=== PATIENT | male | born 1955 | race African-American/Black ===

== ENCOUNTER → 2016-08-12 | Outpatient (CLI) | payer MEDICARE, OTHER ==
[2016-08-12 13:26] VITALS: BP 121/76; PULSE 69; RESP 16; TEMP 97.9
--- NOTE | 2016-08-12 13:48 | P.PN ---
Progress Note - Text Patient returns for followup for chronic back pain with radiation to bilateral hips. Patient underwent bilateral lumbar RFA in 2016 with excellent relief and returns requesting repeat RFAs. Patient continues on Percocet and Soma medications for pain with good relief. Patient denies adverse drug effects from medications. Today, pt denies new-onset weakness, bowel/bladder incontinence, or any other signs or symptoms of cauda equina syndrome. There are no signs of acute intoxication, and no indications of medication diversion or overuse. In addition to above, 13-point review of systems is also negative for chest pain , shortness of breath, changes in vision, changes in hearing, new onset weakness , abdominal pain, diarrhea, extreme fatigue, malaise, fever, skin changes, homicidal or suicidal ideation, or bowel or bladder incontinence. Vital Signs: Reviewed in EMR Gen: WDWN, AAOx3, NAD HEENT: NCAT, EOMI, hearing grossly normal Pulm: resp unlabored Abd: soft, NT, ND, obese Neck: supple, trachea midline ROM in flexion lumbar spine: reduced ROM in extension lumbar spine: reduced Lumbar paravertebral tenderness: + Facet loading: + bilateral Neuro: CN II-XII grossly intact, decreased strength bilateral LEs 4/5 Imaging: Reviewed in EMR Assessment: 1. lumbar spondylosis without myelopathy 2. chronic pain syndrome Plan: 1. Explanation: Opioid and psychological risk scores were reviewed. Diagnoses , prognoses, and multiple treatment options including but not limited to physical therapy, interventional therapies, adjuvant medical therapies, narcotic medication therapies, and surgery were discussed with the patient and all questions were answered to the patient's satisfaction. 2. Opioid agreement: no opioids prescribed today 3. Counseling: The patient was counseled extensively on BODY MASS INDEX, EXERCISE. Specifically, the patient was instructed regarding the importance of smoking cessation, obesity, and exercise in the context of both chronic pain and overall health. 4. Procedures: left lumbar RFA 5. Consultations: None 6. Investigations: None 7. Medications: none prescribed 8. Disposition: f/u for procedure as scheduled PQRS measures: 1-Patient's medications are documented in the chart. 2-Tobacco use is negative 3-Patient has not had a pneumococcal vaccine. 4-Advanced care planning discussed, patient unable to give. 5-Opioid contract NOT signed with the patient. 6-Pain positive, follow-up visit or procedure scheduled 7-Patient's blood pressure measured and documented, and WNL. 8-Patient's weight was measured, and body mass index ABOVE the normal limits, and counseling was done. Patient instructed to follow up with PCP. 9-Patient WAS NOT identified as an unhealthy alcohol user.
== END | disposition home or self-care (01) ==
LOC: PNWHC3 13:13
PROVIDERS: ATTEND Anesthesiology
DX: M47.816 Spondylosis without myelopathy or radiculopathy, lumbar region (principal); G89.4 Chronic pain syndrome
CPT/HCPCS: 99211

== ENCOUNTER 2016-09-03 09:05 | Day surgery (SDC) | payer MEDICARE, OTHER ==
[2016-09-02 11:44] VITALS: BMI 32.8
[2016-09-03 09:46] VITALS: RESP 16; TEMP 97.8
[2016-09-03] MEDS ORDERED: LACTATED RINGERS 1,000 ML IV ONE (09:52)
--- NOTE | 2016-09-03 10:53 | P.PCN ---
Date of Procedure: 09/03/16 Preoperative Diagnosis: Postoperative Diagnosis: Procedure(s) Performed: Implants: Surgeon: Ge Vaughn Pathology: none sent Condition: stable Disposition: PACU Indications for Procedure: Operative Findings: Description of Procedure: PREOPERATIVE DIAGNOSIS: Lumbar spondylosis without myelopathy and facet arthropathy POSTOPERATIVE DIAGNOSIS: Lumbar spondylosis without myelopathy and facet arthropathy PROCEDURES: Left Radiofrequency thermocoagulation, L3-L4, L4-L5, and L5-S1 medial branch, with fluoroscopic guidance. ANESTHESIA: 1% lidocaine plain; Conscious sedation with versed/fentanyl EBL: Minimal PROCEDURE INDICATION: The patient with low back pain secondary to lumbar arthropathy who had more than 50% relief of pain with previous diagnostic lumbar medial branch block with bupivacaine. Patient presents for left lumbar RFA today after multiple successful RFAs in the past; no use of blood thinners. PROCEDURE DESCRIPTION / TECHNIQUE: The patient was seen and identified in the preoperative area. Risks, benefits, complications, and alternatives were discussed with the patient (including but not limited to incomplete pain relief , bleeding, infection, nerve damage, and allergies to medications), the patient agreed to proceed with the procedure and signed the consent after all questions were answered. Patient was taken to the OR and time out was completed to verify proper patient , position, laterality of pain, and allergies. Pt was placed in the prone position. IV was started. Vital signs remained stable throughout the procedure. A pillow was placed under the patients chest to decrease lordosis. The lumbosacral area was prepped and draped in the usual sterile fashion. Vital signs were closely monitored during the procedure. Conscious sedation was used during the procedure to decrease patients anxiety. Using AP and then oblique fluoroscopy, the eye of the Trevor dog corresponding to the connection between the superior and transverse articular processes of left L4, L5 and top of the sacrum were identified, marked, and localized with 1% lidocaine. Subsequently, a 18 gauge, 100-mm VENOM radiofrequency cannula with a 10-mm active tip was advanced guided by fluoroscopy to each of the eyes of the Trevor dog at left L3, L4, and L5 medial branches. Each site then underwent sensory testing at 50 Hz and 0 to 1 volt and motor testing at 2 Hz and 0 to 3 volt with local stimulation, but no radicular symptoms down the legs. Thereafter the left L3, L4, and L5 medial branch sites underwent radiofrequency thermocoagulation at 80 degrees Celsius for 90 seconds after injecting 0.5 ml of PF lidocaine 1%. After thermocoagulation, 1 ml of the block solution containing Kenalog 40 mg and 2 mL of preservative-free normal saline was injected at the left L3, L4, and L5 medial branch levels after negative aspiration of CSF and blood and with no paresthesias. Cannulas were retracted while injecting lidocaine 1% until the needles were removed. At the end of the procedure, the skin was cleansed and bandages were applied. COMPLICATIONS: No acute complications. DISPOSITION / PLANS: The patient was placed in a supine position and transferred to the recovery area in a stable condition for observation and was discharged from the recovery room after meeting discharge criteria. Home discharge instructions given to the patient by the staff. The patient was reexamined prior to discharge. The patient will schedule a right lumbar RFA next ; VENOM technology used for this procedure.
[2016-09-03] MEDS ORDERED: IV FLUID CONTINUATION 550 ML IV ONE (11:01)
--- NOTE | 2016-09-03 11:09 | FL ---
EXAMINATION TYPE: FL guided pain mgmt statistic DATE OF EXAM: 09/03/2016 HISTORY: Pain LEFT LUMBAR RF, 8 SEC FL, 3 IMAGES SCANNED, .
[2016-09-03 11:21] VITALS: BP 132/83; PULSE 69
[2016-09-03] MEDS ORDERED: LACTATED RINGERS 1,000 ML IV SCH (11:30)
== END 2016-09-03 11:40 | disposition home or self-care (01) ==
LOC: ORPAIN 09:05
PROVIDERS: ATTEND Anesthesiology
DX: G89.4 Chronic pain syndrome (principal); M47.816 Spondylosis without myelopathy or radiculopathy, lumbar region; M46.96 Unspecified inflammatory spondylopathy, lumbar region; Z79.891 Long term (current) use of opiate analgesic; Z79.899 Other long term (current) drug therapy
CPT/HCPCS: 64635; 64636; 99152; J2250; J3301; J3010

== ENCOUNTER 2016-10-02 10:58 | Day surgery (SDC) | payer MEDICARE, OTHER ==
[2016-10-01 11:45] VITALS: BMI 33.5
[~2016-10-02 10:58] MED LIST: LACTATED RINGERS 1,000 ML IV SCH; LIDOCAINE 1% 20 ML VIAL (10MG/ML) FOR IV START INTRADERMA PRN
[2016-10-02 11:21] VITALS: TEMP 97.9
[2016-10-02] MEDS ORDERED: PROPOFOL 10 MG/ML 20 ML VIAL IV ONE (11:37)
[2016-10-02] MEDS ORDERED: LIDOCAINE 1% INJ 10MG/ML (20 ML MDV) ONE (11:37)
--- NOTE | 2016-10-02 11:39 | P.GSHP ---
History of Present Illness H&P Date: 10/02/16 Chief Complaint: Screening, history of polyps Patient here today for colonoscopy. Last colonoscopy was 5 years ago. He had colon polyps at that time. Family history of colon cancer and uncle. No bowel related complaints. Past Medical History Past Medical History: Hearing Disorder / Deafness, Musculoskeletal Disorder, Osteoarthritis (OA), Prostate Disorder Additional Past Medical History / Comment(s): DDD. hx SHINGLES ONE TIME.Deaf Rt ear History of Any Multi-Drug Resistant Organisms: MRSA Date of last positivie culture/infection: 2014 MDRO Source:: nose Past Surgical History: Joint Replacement, Orthopedic Surgery Additional Past Surgical History / Comment(s): RT KNEE AND HIP replaced. PAIN PROC, COLLARBONE REPAIRED. Left hip replacement x2 Past Anesthesia/Blood Transfusion Reactions: No Reported Reaction Additional Past Anesthesia/Blood Transfusion Reaction / Comment(s): no hx blood transfusion Smoking Status: Never smoker - Past Family History Father Family Medical History: Congestive Heart Failure (CHF) Brother(s) Family Medical History: Deep Vein Thrombosis (DVT) Medications and Allergies Home Medications Medication Instructions Recorded Confirmed Type Zolpidem Tartrate [Ambien] 10 mg PO HS PRN 02/17/14 10/02/16 History oxyCODONE-APAP 10-325MG [Percocet 1 each PO Q6HR PRN 05/31/14 10/02/16 History 10-325] Cyanocobalamin (Vitamin B-12) 1,000 mcg PO DAILY 06/02/15 10/02/16 History [Vitamin B12] Ferrous Sulfate [Iron (65 MG 325 mg PO DAILY 06/02/15 10/02/16 History Elemental)] Ibuprofen [Motrin] 800 mg PO DAILY PRN 06/02/15 10/02/16 History Multivitamins, Thera [Multivitamin] 1 tab PO DAILY 06/02/15 10/02/16 History Tamsulosin HCl [Flomax] 0.4 mg PO QAM 06/02/15 10/02/16 History Carisoprodol [Soma] 350 mg PO TID PRN 07/04/16 10/02/16 History Allergies Allergy/AdvReac Type Severity Reaction Status Date / Time No Known Allergies Allergy Verified 10/01/16 15:34 Surgical - Exam Vital Signs Temp Pulse Resp BP Pulse Ox 97.9 F 68 18 132/89 98 10/02/16 11:18 10/02/16 11:18 10/02/16 11:18 10/02/16 11:18 10/02/16 11:18 Physical exam: General: Well-developed, well-nourished HEENT: Normocephalic, sclerae nonicteric Abdomen: Nontender, nondistended Extremities: No edema Neuro: Alert and oriented Assessment and Plan (1) Colon cancer screening Narrative/Plan: Will proceed with colonoscopy. Status: Acute
--- NOTE | 2016-10-02 11:54 | P.PCN ---
Date of Procedure: 10/02/16 Preoperative Diagnosis: Postoperative Diagnosis: Procedure(s) Performed: PREOPERATIVE DIAGNOSIS: Colon cancer screening, history of polyps POSTOPERATIVE DIAGNOSIS: Normal exam PROCEDURE: Colonoscopy ANESTHESIA: MAC SURGEON: Binu De La Paz M.D. SPECIMENS: None ENDOSCOPIC PROCEDURE: The patient was placed on the endoscopy table in the left decubitus position. The Olympus colonoscope was inserted into the anus and passed under direct visualization to the base of the cecum. The appendiceal orifice was visualized. From that point the scope was slowly withdrawn inspecting all surfaces carefully. There were no neoplastic inflammatory or polypoid lesions throughout the cecum, ascending, transverse, descending, sigmoid and rectum. There was no diverticulosis noted. Digital rectal examination was normal. The patient was taken to the recovery room in stable condition per anesthesia guidelines. RECOMMENDATIONS: Follow-up colonoscopy 5 years. Implants: Indications for Procedure: Operative Findings: Description of Procedure:
[2016-10-02 12:07] VITALS: RESP 16
[2016-10-02 12:19] VITALS: PULSE 56
[2016-10-02 12:38] VITALS: BP 129/75
== END 2016-10-02 12:42 | disposition home or self-care (01) ==
LOC: ORWHC2ENDO 10:58
PROVIDERS: ATTEND Surgery
DX: Z12.11 Encounter for screening for malignant neoplasm of colon (principal); Z86.010 Personal history of colon polyps; Z80.0 Family history of malignant neoplasm of digestive organs; N40.0 Benign prostatic hyperplasia without lower urinary tract symptoms; M19.90 Unspecified osteoarthritis, unspecified site; Z79.899 Other long term (current) drug therapy; Z79.891 Long term (current) use of opiate analgesic
CPT/HCPCS: J2001; J2704; G0105

== ENCOUNTER 2016-10-08 09:17 | Day surgery (SDC) | payer MEDICARE, OTHER ==
[2016-10-01 15:44] VITALS: BMI 33.5
[~2016-10-08 09:17] MED LIST changes: -LIDOCAINE 1% 20 ML VIAL (10MG/ML) FOR IV START INTRADERMA PRN
[2016-10-08 09:32] VITALS: TEMP 97.7
[2016-10-08] MEDS ORDERED: LIDOCAINE 1% 20 ML VIAL (10MG/ML) FOR IV START INTRADERMA ONE (09:42)
--- NOTE | 2016-10-08 10:36 | P.PCN ---
Date of Procedure: 10/08/16 Preoperative Diagnosis: Postoperative Diagnosis: Procedure(s) Performed: PREOPERATIVE DIAGNOSIS: 1-Lumbar Spondylosis with Facet Arthropathy without myelopathy. 2- Lumber degenerative disc disease. POSTOPERATIVE DIAGNOSIS: 1- Lumbar Spondylosis with Facet Arthropathy without myelopathy. 2- Lumber degenerative disc disease. PROCEDURES : Right Radiofrequency thermocoagulation, L3-L4, L4-L5, and L5-S1 medial branch, with fluoroscopic guidance ANESTHESIA: IV sedation with versed 2 mg and fentaneyl 100 mcg and local infiltration with lidocaine 1% 6 ml EBL: Minimal PROCEDURE INDICATION: The patient with low back pain secondary to lumbar facet arthropathy who had more than 50% relief of her pain with previous diagnostic lumbar medial branch block with bupivacaine. PROCEDURE DESCRIPTION / TECHNIQUE: The patient was seen and identified in the preoperative area. Risks, benefits, complications, including but not limited to risk of infection ,bleeding , allergic reactions to the medications and no complete pain releife , and alternatives were discussed with the patient, the patient agreed to proceed with the procedure and signed the consent. IV was started. Vital signs remained stable throughout the procedure. Patient was taken to the OR and time out was completed. The patient was placed in the prone position on the procedure table. The lumber area was prepped and draped in the usual sterile fashion. . Vital signs were closely monitored during the procedure .IV sedation was used during the procedure to decrease patients anxiety. Using AP and then oblique fluoroscopy, the ``eye of the Trevor dog corresponding to the connection between the superior and transverse articular processes of right L3, L4, and L5 were identified, marked, and localized with 1 % lidocaine. Subsequently, a 18 -fs radiofrequency cannula with a 10- mm active tip was advanced guided by fluoroscopy to each of the ``eyes of the Trevor dog at right L3, L4, and L5. Each site then underwent sensory testing at 50 Hz and 0 to 1 volt and motor testing at 2.5 Hz and 0 to 3 volt with local stimulation, but no radicular symptoms down the legs. Thereafter the right L3-4, L4-5, and L5-S1 sites underwent radiofrequency thermocoagulation at 80 degrees celsius for 90 seconds after injecting 0.5 ml of PF lidocaine 1%. then After the thermocoagulation done , 1 ml of the block solution containing Kenalog 40 mg and 3 ml of marain 0.5% was injected at the right L3-4 , L4-5 , and L5-S1, levels after negative aspiration of CSF and blood and with no paresthesias. Cannulas were retracted while injecting lidocaine 1% until the needle is out. At the end of the procedure, the skin was cleansed and bandages were applied. COMPLICATIONS: No acute complications. DISPOSITION / PLANS: The patient was placed in a supine position and transferred to the recovery area in a stable condition for observation and was discharged from the recovery room after meeting discharge criteria. Home discharge instructions given to the patient by the staff. The patient was reexamined prior to discharge. The patient will schedule a follow up in the clinic in 2-4 weeks. Implants: Indications for Procedure: Operative Findings: Description of Procedure:
[2016-10-08] MEDS ORDERED: IV FLUID CONTINUATION 1,000 ML IV ONE (10:43)
[2016-10-08 10:48] VITALS: RESP 16
[2016-10-08 11:02] VITALS: BP 118/62; PULSE 62
--- NOTE | 2016-10-08 12:03 | FL ---
Fluoroscopy HISTORY: Pain 7 seconds fluoroscopy time supplied to the referring clinician. 3 intraoperative C-arm images docume nt the procedure. See dictated report from anesthesia.
== END 2016-10-08 11:16 | disposition home or self-care (01) ==
LOC: ORPAIN 09:17
PROVIDERS: ATTEND Specialist
DX: M47.816 Spondylosis without myelopathy or radiculopathy, lumbar region (principal); M46.96 Unspecified inflammatory spondylopathy, lumbar region; M51.36 Other intervertebral disc degeneration, lumbar region
CPT/HCPCS: 64635; 64636; 99152; J2250; J1100; J3010; 99153

== ENCOUNTER 2016-10-14 21:25 | Emergency (ER) | payer MEDICARE, OTHER ==
[2016-10-14] MEDS ORDERED: ASPIRIN 81 MG CHEW PO STA (21:49)
[2016-10-14] MEDS ORDERED: KETOROLAC 30 MG/ML 1 ML VIAL IVP STA (21:49)
[2016-10-14] MEDS ORDERED: NITROGLYCERIN OINT 1 INCH/GM PACKET TOPICAL STA (21:49)
--- NOTE | 2016-10-14 21:53 | ED ---
Chest Pain HPI - General Chief Complaint: Chest Pain Stated Complaint: Chest Pain Time Seen by Provider: 10/14/16 21:44 Source: patient Mode of arrival: ambulatory Limitations: no limitations - History of Present Illness Initial Comments: This 60-year-old -[place]ux[place]bour[place] male presents with a right sided nonpleuritic sharp chest pain which is nonradiating that started approximately 6 hours ago. He denies any shortness of breath nor diaphoresis. He states that it is worse if he sits up or exerts himself by walking. He denies any previous similar type incidents. He states that he works out regularly and worked out earlier today and is unsure if it could be due to pulling something. He states that he increased his weightlifting workout today. He also relates that he had a full physical approximately 3 months ago with a negative stress test and echocardiogram and EKG. He denies any other complaints or modifying factors. There is no leg pain or swelling or history of DVT or PE. - Related Data Home Medications Medication Instructions Recorded Confirmed Zolpidem Tartrate [Ambien] 10 mg PO HS PRN 02/17/14 10/14/16 oxyCODONE-APAP 10-325MG [Percocet 1 tab PO TID PRN 05/31/14 10/14/16 10-325] Ferrous Sulfate [Iron (65 MG 325 mg PO DAILY 06/02/15 10/14/16 Elemental)] Ibuprofen [Motrin] 800 mg PO TID PRN 06/02/15 10/14/16 Tamsulosin HCl [Flomax] 0.4 mg PO DAILY 06/02/15 10/14/16 Carisoprodol [Soma] 350 mg PO TID PRN 07/04/16 10/14/16 Cyanocobalamin (Vitamin B-12) 1,000 mcg PO DAILY 10/14/16 10/14/16 [Vitamin B-12] Multivitamin [Men's Multi-Vitamin] 1 tab PO DAILY 10/14/16 10/14/16 Allergies Allergy/AdvReac Type Severity Reaction Status Date / Time No Known Allergies Allergy Verified 10/14/16 21:43 Review of Systems ROS Statement: Those systems with pertinent positive or pertinent negative responses have been documented in the HPI. ROS Other: All systems not noted in ROS Statement are negative. Past Medical History Past Medical History: Hearing Disorder / Deafness, Musculoskeletal Disorder, Osteoarthritis (OA), Prostate Disorder Additional Past Medical History / Comment(s): DDD. hx SHINGLES ONE TIME.Deaf Rt ear History of Any Multi-Drug Resistant Organisms: MRSA Date of last positivie culture/infection: 2014 MDRO Source:: nose Past Surgical History: Joint Replacement, Orthopedic Surgery Additional Past Surgical History / Comment(s): RT KNEE AND HIP replaced. PAIN PROC, COLLARBONE REPAIRED. Left hip replacement x2 Past Anesthesia/Blood Transfusion Reactions: No Reported Reaction Additional Past Anesthesia/Blood Transfusion Reaction / Comment(s): no hx blood transfusion Past Psychological History: No Psychological Hx Reported Smoking Status: Never smoker - Past Family History Father Family Medical History: Congestive Heart Failure (CHF) Brother(s) Family Medical History: Deep Vein Thrombosis (DVT) General Exam - General Exam Comments Initial Comments: GENERAL: The patient is well nourished and well hydrated. VITAL SIGNS: Heart rate, blood pressure, respiratory rate reviewed as recorded in nurse's notes. EYES: Pupils are round and reactive. Extraocular movements are intact. No conjunctival / lid redness or swelling. ENT: No external evidence of injury, swelling, or ecchymosis. Airway is patent. Throat is clear. NECK: Nontender. No swelling or evidence of injury. No subcutaneous emphysema. Trachea is midline. No thyroid mass. HEART: Regular rate and rhythm. Good peripheral pulses. LUNGS/CHEST: Breath sounds clear and equal bilaterally. No rales, rhonchi, or wheezes. No ecchymosis, subcutaneous emphysema, or tenderness. ABDOMEN: Abdomen soft without tenderness. No palpable masses or organomegaly. No peritoneal signs. No abdominal wall swelling or ecchymosis. EXTREMITIES: No extremity tenderness. Normal muscle tone and function. No thoracolumbar tenderness. There is no leg swelling. NEUROLOGIC: Sensation is grossly intact. Cranial nerve exam reveals face is symmetrical, tongue is midline, speech is clear. SKIN: No abrasions or ecchymosis is noted. No induration or masses noted. PSYCHIATRIC: Alert and oriented. Appropriate behavior and judgment. Limitations: no limitations Course Vital Signs 10/14/16 21:32 Temperature 98.7 F Pulse Rate 69 Respiratory 18 Rate Blood Pressure 139/76 O2 Sat by Pulse 98 Oximetry Chest Pain MDM - MDM The patient was seen and examined. All diagnostics were reviewed. The EKG shows a normal sinus rhythm at a rate of 73. There is no acute ST-T wave changes. There is occasional artifact noted primarily in the inferior leads and V4. The IL interval is 194, QRS duration is 100, and the QTc interval is 427. He does receive aspirin as well as Nitropaste and Toradol. The chest x- ray does not show any acute process. The labs are all essentially within normal limits except for slightly elevated CPK. Is felt that his CPK is likely elevated due to the extensive workups that he does. He is instructed to drink plenty of fluids in this regard. He is recommended to be admitted to the hospital but does not want to stay in the hospital. Risks and benefits were discussed in detail but he is quite adamant about leaving. Admission was recommended. He states that he feels remarkably better after receiving the Toradol that his pain is on a percent resolved at this time. Overall, it is felt as though his chest pain is fairly atypical in nature but admission is still recommended. Disposition Clinical Impression: Chest pain, Elevated CPK Disposition: Left Against Medical Advice Condition: Fair Instructions: Chest Pain (ED), Against Medical Advice (ED) Additional Instructions: Please drink extra fluids for the next 2 days. Please take an aspirin daily. Return if your symptoms worsen or if you change your mind regarding admission. Referrals: Shaun Wang MD [Primary Care Provider] - 1-2 days Time of Disposition: 00:07
[2016-10-14 22:00] VITALS: RESP 18
[2016-10-14 22:29] LABS: Anisocytosis Slight; Basophils % (A) 0 %; CH 29.8; CHCM 32.8; Eosinophils # (A) 0.2 k/uL (0-0.7); Eosinophils % (A) 3 %; HCT 41.7 % (39.0-53.0); HDW 2.64; HGB 13.1 gm/dL (13.0-17.5); Luc % (Auto) 3; Lymphocytes # (A) 2.5 k/uL (1.0-4.8); Lymphocytes % (A) 35 %; MCH 28.8 pg (25.0-35.0); MCHC 31.5 g/dL (31.0-37.0); MCV 91.5 fL (80.0-100.0); Mean Platelet Volume 8.2; Monocytes # (A) 0.4 k/uL (0-1.0); Monocytes % (A) 6 %; Neutrophils # (A) 3.7 k/uL (1.3-7.7); Neutrophils % (A) 53 %; RBC 4.55 m/uL (4.30-5.90); RDW 16.1 % (11.5-15.5); WBC (Perox) 7.06
[2016-10-14 22:42] LABS: INR 1.1 (<1.2); Partial Thromboplastin Time 23.9 sec (22.0-30.0); Prothrombin Time 11.1 sec (9.0-12.0)
[2016-10-14 22:44] LABS: ALT 41 U/L (21-72); AST 44 U/L (17-59); Alkaline Phosphatase 66 U/L (38-126); Anion Gap 10 mmol/L; Blood Urea Nitrogen 26 mg/dL (9-20); Calcium 8.2 mg/dL (8.4-10.2); Carbon Dioxide 19 mmol/L (22-30); Chloride 112 mmol/L (98-107); Glucose 88 mg/dL (74-99); Magnesium 1.8 mg/dL (1.6-2.3); Non-African American GFR(MDRD) >60 (>60 ml/min/1.73 sqM); Potassium 4.2 mmol/L (3.5-5.1); Sodium 141 mmol/L (137-145); Total Bilirubin 0.3 mg/dL (0.2-1.3)
[2016-10-14 22:57] LABS: Creatine Kinase 1371 U/L (55-170)
[2016-10-14 23:11] LABS: Creatine Kinase MB 2.4 ng/mL (0.0-2.4); Troponin I <0.012 ng/mL (0.000-0.034)
--- NOTE | 2016-10-14 23:50 | XR ---
EXAM: XR Chest, 2 Views CLINICAL HISTORY: Reason: Chest Pain TECHNIQUE: Frontal and lateral views of the chest. COMPARISON: No relevant prior studies available. FINDINGS: Lungs: Lungs are clear Pleural space: No evidence of pleural effusion or pneumothorax Heart: Heart size within normal limits Mediastinum: Mediastinal structures are unremarkable Bones/joints: Hypertrophic changes involving mid to lower thoracic spine. IMPRESSION: No evidence of active chest disease.
[2016-10-15 00:33] VITALS: BP 136/75; PULSE 66; TEMP 98
== END 2016-10-15 00:34 | disposition left against medical advice (07) ==
LOC: EC 21:25
DX: R07.9 Chest pain, unspecified (principal); R74.8 Abnormal levels of other serum enzymes; Z79.899 Other long term (current) drug therapy; Z86.14 Personal history of Methicillin resistant Staphylococcus aureus infection
CPT/HCPCS: 36415; 93005; 85379; 83880; 80053; 82550; 82553; 83735; 84484; 85025; 85610; 85730; 71020; 99285; 96374; J1885

== ENCOUNTER 2017-04-30 14:48 | Emergency (ER) | payer MEDICARE, OTHER ==
[2017-04-30] MEDS ORDERED: ACETAMINOPHEN TAB 325 MG TAB PO STA (15:28)
--- NOTE | 2017-04-30 15:34 | ED ---
URI HPI - General Chief Complaint: Upper Respiratory Infection Stated Complaint: cough Time Seen by Provider: 04/30/17 15:20 Source: patient, RN notes reviewed Mode of arrival: ambulatory Limitations: no limitations - History of Present Illness Initial Comments: 61-year-old male presents emergency Department chief complaint of fever cough congestion. Patient states started 1 week ago. He states his cough is a productive. He started developing body aches last few days with intermittent headaches no neck pain or neck stiffness. Patient states he has not taken any Tylenol or Motrin for his fever today do not know he had a fever. Denies any nausea vomiting diarrhea constipation no sick contacts he has had his flu and pneumonia vaccine. He is a nonsmoker no former smoking. Denies him on issues denies any chest pain or shortness breath at this time. - Related Data Home Medications Medication Instructions Recorded Confirmed Zolpidem Tartrate [Ambien] 10 mg PO HS 02/17/14 04/30/17 oxyCODONE-APAP 10-325MG [Percocet 1 tab PO TID PRN 05/31/14 04/30/17 10-325] Ferrous Sulfate [Iron (65 MG 325 mg PO DAILY 06/02/15 04/30/17 Elemental)] Tamsulosin HCl [Flomax] 0.4 mg PO DAILY 06/02/15 04/30/17 Carisoprodol [Soma] 350 mg PO TID PRN 07/04/16 04/30/17 Cyanocobalamin (Vitamin B-12) 1,000 mcg PO DAILY 10/14/16 04/30/17 [Vitamin B-12] Multivitamin [Men's Multi-Vitamin] 1 tab PO DAILY 10/14/16 04/30/17 Ibuprofen [Motrin] 800 mg PO TID 04/30/17 04/30/17 Montelukast [Singulair] 10 mg PO DAILY 04/30/17 04/30/17 predniSONE 20 mg PO BID 04/30/17 04/30/17 Allergies Allergy/AdvReac Type Severity Reaction Status Date / Time No Known Allergies Allergy Verified 04/30/17 16:24 Review of Systems ROS Statement: Those systems with pertinent positive or pertinent negative responses have been documented in the HPI. ROS Other: All systems not noted in ROS Statement are negative. Past Medical History Past Medical History: Hearing Disorder / Deafness, Musculoskeletal Disorder, Osteoarthritis (OA), Prostate Disorder Additional Past Medical History / Comment(s): DDD. hx SHINGLES ONE TIME.Deaf Rt ear History of Any Multi-Drug Resistant Organisms: MRSA Date of last positivie culture/infection: 2014 MDRO Source:: nose Past Surgical History: Joint Replacement, Orthopedic Surgery Additional Past Surgical History / Comment(s): RT KNEE AND HIP replaced. PAIN PROC, COLLARBONE REPAIRED. Left hip replacement x2 Past Anesthesia/Blood Transfusion Reactions: No Reported Reaction Additional Past Anesthesia/Blood Transfusion Reaction / Comment(s): no hx blood transfusion Past Psychological History: No Psychological Hx Reported Smoking Status: Never smoker Past Alcohol Use History: None Reported Past Drug Use History: None Reported - Past Family History Father Family Medical History: Congestive Heart Failure (CHF) Brother(s) Family Medical History: Deep Vein Thrombosis (DVT) General Exam Limitations: no limitations General appearance: alert, in no apparent distress Head exam: Present: atraumatic, normocephalic, normal inspection Eye exam: Present: normal appearance, PERRL, EOMI. Absent: scleral icterus, conjunctival injection, periorbital swelling ENT exam: Present: normal exam, normal oropharynx, mucous membranes moist, TM's normal bilaterally, normal external ear exam Neck exam: Present: normal inspection, full ROM. Absent: tenderness, meningismus, lymphadenopathy Respiratory exam: Present: normal lung sounds bilaterally. Absent: respiratory distress, wheezes, rales, rhonchi, stridor Cardiovascular Exam: Present: regular rate, normal rhythm, normal heart sounds. Absent: systolic murmur, diastolic murmur, rubs, gallop, clicks GI/Abdominal exam: Present: soft, normal bowel sounds. Absent: distended, tenderness, guarding, rebound, rigid Skin exam: Present: warm, dry, intact, normal color. Absent: rash Course Vital Signs 04/30/17 04/30/17 15:01 15:48 Temperature 100.5 F H Pulse Rate 94 Respiratory 18 20 Rate Blood Pressure 128/73 O2 Sat by Pulse 98 Oximetry Medical Decision Making - Medical Decision Making 61-year-old male present emergency department for cough congestion for 1 week. Patient had lab work, x-ray. Patient influenza be positive. Patient symptoms have been present for 1 week will not be given prescription for Tamiflu. The patient is advised take, motion. X-ray showed concern for possible aneurysm CT was performed no evidence of aneurysm. - Lab Data Result diagrams: 04/30/17 15:34 04/30/17 15:34 Lab Results 04/30/17 04/30/17 04/30/17 Range/Units 15:34 15:34 15:34 WBC 6.7 (3.8-10.6) k/uL RBC 4.80 (4.30-5.90) m/uL Hgb 13.7 (13.0-17.5) gm/dL Hct 42.4 (39.0-53.0) % MCV 88.4 (80.0-100.0) fL MCH 28.6 (25.0-35.0) pg MCHC 32.4 (31.0-37.0) g/dL RDW 15.2 (11.5-15.5) % Plt Count 168 (150-450) k/uL Neutrophils % 71 % Lymphocytes % 16 % Monocytes % 9 % Eosinophils % 1 % Basophils % 1 % Neutrophils # 4.7 (1.3-7.7) k/uL Lymphocytes # 1.1 (1.0-4.8) k/uL Monocytes # 0.6 (0-1.0) k/uL Eosinophils # 0.1 (0-0.7) k/uL Basophils # 0.1 (0-0.2) k/uL Sodium 140 (137-145) mmol/L Potassium 4.5 (3.5-5.1) mmol/L Chloride 108 H (98-107) mmol/L Carbon Dioxide 26 (22-30) mmol/L Anion Gap 6 mmol/L BUN 17 (9-20) mg/dL Creatinine 1.30 H (0.66-1.25) mg/dL Est GFR (CKD-EPI)AfAm 69 (>60 ml/min/1.73 sqM) Est GFR (CKD-EPI)NonAf 60 (>60 ml/min/1.73 sqM) Glucose 82 (74-99) mg/dL Plasma Lactic Acid Everette (0.7-2.0) mmol/L Calcium 8.5 (8.4-10.2) mg/dL Total Bilirubin 0.2 (0.2-1.3) mg/dL AST 17 (17-59) U/L ALT 30 (21-72) U/L Alkaline Phosphatase 70 (38-126) U/L Total Protein 5.4 L (6.3-8.2) g/dL Albumin 2.9 L (3.5-5.0) g/dL Influenza Type A RNA Not Detected (Not Detectd) Influenza Type B (PCR) Detected H (Not Detectd) 04/30/17 Range/Units 15:34 WBC (3.8-10.6) k/uL RBC (4.30-5.90) m/uL Hgb (13.0-17.5) gm/dL Hct (39.0-53.0) % MCV (80.0-100.0) fL MCH (25.0-35.0) pg MCHC (31.0-37.0) g/dL RDW (11.5-15.5) % Plt Count (150-450) k/uL Neutrophils % % Lymphocytes % % Monocytes % % Eosinophils % % Basophils % % Neutrophils # (1.3-7.7) k/uL Lymphocytes # (1.0-4.8) k/uL Monocytes # (0-1.0) k/uL Eosinophils # (0-0.7) k/uL Basophils # (0-0.2) k/uL Sodium (137-145) mmol/L Potassium (3.5-5.1) mmol/L Chloride (98-107) mmol/L Carbon Dioxide (22-30) mmol/L Anion Gap mmol/L BUN (9-20) mg/dL Creatinine (0.66-1.25) mg/dL Est GFR (CKD-EPI)AfAm (>60 ml/min/1.73 sqM) Est GFR (CKD-EPI)NonAf (>60 ml/min/1.73 sqM) Glucose (74-99) mg/dL Plasma Lactic Acid Everette 1.5 (0.7-2.0) mmol/L Calcium (8.4-10.2) mg/dL Total Bilirubin (0.2-1.3) mg/dL AST (17-59) U/L ALT (21-72) U/L Alkaline Phosphatase (38-126) U/L Total Protein (6.3-8.2) g/dL Albumin (3.5-5.0) g/dL Influenza Type A RNA (Not Detectd) Influenza Type B (PCR) (Not Detectd) Disposition Clinical Impression: Influenza Disposition: HOME SELF-CARE Condition: Stable Instructions: Influenza (ED) Additional Instructions: Please return to the Emergency Department if symptoms worsen or any other concerns. Referrals: Shaun Wang MD [Primary Care Provider] - 1-2 days Time of Disposition: 17:51
--- NOTE | 2017-04-30 16:03 | XR ---
EXAMINATION TYPE: XR chest 2V DATE OF EXAM: 04/30/2017 COMPARISON: 10/14/2016 TECHNIQUE: PA and lateral views submitted. HISTORY: Cough FINDINGS: The lungs are clear and there is no pneumothorax, pleural effusion, or focal pneumonia. There is a convex prominence along the right suprahilar region. This could related the aorta or mediastinal mass . Hypertrophic and degenerative change of the spine are noted. There is no pneumothorax. Heterogeneou s density seen throughout the osseous structures which may be technical. IMPRESSION: 1. There is a convex outer margin along the right suprahilar region which could relate to either the aorta, including aortic aneurysm or mediastinal mass. Recommend CT scan of the chest. 2. Somewhat heterogeneous density in the visualized osseous structures is nonspecific.
[2017-04-30] MEDS ORDERED: RX INFO: IV CONTRAST WAS GIVEN 1 EACH MISC MISCELLANE PRN (16:05)
[2017-04-30 16:18] LABS: Basophils # (A) 0.1 k/uL (0-0.2); Basophils % (A) 1 %; Eosinophils # (A) 0.1 k/uL (0-0.7); Eosinophils % (A) 1 %; HCT 42.4 % (39.0-53.0); HGB 13.7 gm/dL (13.0-17.5); Lymphocytes # (A) 1.1 k/uL (1.0-4.8); Lymphocytes % (A) 16 %; MCH 28.6 pg (25.0-35.0); MCHC 32.4 g/dL (31.0-37.0); MCV 88.4 fL (80.0-100.0); Mean Platelet Volume 7.3; Monocytes # (A) 0.6 k/uL (0-1.0); Monocytes % (A) 9 %; Neutrophils # (A) 4.7 k/uL (1.3-7.7); Neutrophils % (A) 71 %; Platelet Count 168 k/uL (150-450); RDW 15.2 % (11.5-15.5); WBC 6.7 k/uL (3.8-10.6)
[2017-04-30 16:34] LABS: Albumin 2.9 g/dL (3.5-5.0); Calcium 8.5 mg/dL (8.4-10.2); Potassium 4.5 mmol/L (3.5-5.1); Total Bilirubin 0.2 mg/dL (0.2-1.3); Total Protein 5.4 g/dL (6.3-8.2)
--- NOTE | 2017-04-30 17:47 | CT ---
EXAMINATION TYPE: CT chest angio for PE DATE OF EXAM: 04/30/2017 COMPARISON: NONE HISTORY: Cough, congestion and chest discomfort CT DLP: 513.8 mGycm Automated exposure control for dose reduction was used. CONTRAST: CT Chest for pulmonary embolism performed with with IV Contrast, patient injected with 80 mL of Visip aque 320. FINDINGS: There are 3-D post processed images. The lungs are clear of consolidation. There is no evidence of a pulmonary mass. There is no pleural e ffusion. Heart size is normal. There is no pericardial effusion. I see no filling defects in the pulm onary arteries. There are mediastinal and bronchial lymph nodes measure up to 1 cm. There is no evide nce of thoracic aortic aneurysm or dissection. There spondylotic changes in the thoracic spine. I see no bony destructive process. IMPRESSION: No evidence of pulmonary embolism. Nonspecific small multiple mediastinal and bronchial lymph nodes.
[2017-04-30 18:01] VITALS: BP 125/85; PULSE 82; RESP 18; TEMP 99.2
== END 2017-04-30 18:12 | disposition home or self-care (01) ==
LOC: EC 14:48
DX: J11.1 Influenza due to unidentified influenza virus with other respiratory manifestations (principal); M19.90 Unspecified osteoarthritis, unspecified site; N42.9 Disorder of prostate, unspecified; Z86.14 Personal history of Methicillin resistant Staphylococcus aureus infection; Z79.899 Other long term (current) drug therapy; Z79.1 Long term (current) use of non-steroidal anti-inflammatories (NSAID); Z79.52 Long term (current) use of systemic steroids
CPT/HCPCS: 36415; 80053; 83605; 85025; 87040; 87502; 71046; 71275; 99284; Q9967

== ENCOUNTER → 2017-06-10 | Outpatient (CLI) | payer OTHER ==
[2017-06-10 14:16] VITALS: BP 147/93; PULSE 70; RESP 18
--- NOTE | 2017-06-10 14:39 | P.PN ---
Progress Note - Text Progress Note Date: 06/10/17 Progress Note - Text Patient returns for followup for chronic back pain, and bilateral hip pain. Patient has had frequent radiofrequency ablations of the lumbar spine that provided excellent relief of his overall axial pain. He is requesting a repeat of the radio frequency ablation today in clinic. Patient is being prescribed Percocet and Soma from his primary care physician has not complaining of any significant adverse effects. 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 Today, pt denies new-onset weakness, bowel/bladder incontinence, or any other signs or symptoms of cauda equina syndrome. There are no signs of acute intoxication, and no indications of medication diversion or overuse. In addition to above, 13-point review of systems is also negative for chest pain , shortness of breath, changes in vision, changes in hearing, new onset weakness , abdominal pain, diarrhea, extreme fatigue, malaise, fever, skin changes, homicidal or suicidal ideation, or bowel or bladder incontinence. Vital Signs: Reviewed in EMR Gen: WDWN, AAOx3, NAD HEENT: NCAT, EOMI, hearing grossly normal Pulm: resp unlabored Abd: soft, NT, ND, obese Neck: supple, trachea midline ROM in flexion lumbar spine: reduced ROM in extension lumbar spine: reduced Lumbar paravertebral tenderness: + + Facet loading: + + bilateral Neuro: CN II-XII grossly intact, decreased strength bilateral LEs 4/5 Imaging: Reviewed in EMR Assessment: 1. lumbar spondylosis without myelopathy 2. chronic pain syndrome Plan: 1. Explanation: Opioid and psychological risk scores were reviewed. Diagnoses , prognoses, and multiple treatment options including but not limited to physical therapy, interventional therapies, adjuvant medical therapies, narcotic medication therapies, and surgery were discussed with the patient and all questions were answered to the patient's satisfaction. 2. Opioid agreement: no opioids prescribed today 3. Counseling: The patient was counseled extensively on BODY MASS INDEX, EXERCISE. Specifically, the patient was instructed regarding the importance of smoking cessation, obesity, and exercise in the context of both chronic pain and overall health. 4. Procedures: Schedule lumbar radiofrequency ablation L3 to S1 5. Consultations: None 6. Investigations: Maps appropriate 7. Medications: none prescribed 8. Disposition: lumbar radiofrequency ablation L3 to S1 PQRS measures: 1-Patient's medications are documented in the chart. 2-Tobacco use is negative 3-Patient has not had a pneumococcal vaccine. 4-Advanced care planning discussed, patient unable to give. 5-Opioid contract NOT signed with the patient. 6-Pain positive, follow-up visit or procedure scheduled 7-Patient's blood pressure measured and documented, and WNL. 8-Patient's weight was measured, and body mass index ABOVE the normal limits, and counseling was done. Patient instructed to follow up with PCP. 9-Patient WAS NOT identified as an unhealthy alcohol user.
== END | disposition home or self-care (01) ==
LOC: PNWHC3 13:57
PROVIDERS: ATTEND Anesthesiology
DX: G89.4 Chronic pain syndrome (principal); M47.816 Spondylosis without myelopathy or radiculopathy, lumbar region
CPT/HCPCS: 99211

== ENCOUNTER 2017-07-15 08:07 | Day surgery (SDC) | payer OTHER ==
[2017-07-08 09:45] VITALS: BMI 34.2
[2017-07-15 08:37] VITALS: TEMP 98.5
[2017-07-15] MEDS ORDERED: LACTATED RINGERS 1,000 ML IV ONE (08:42)
[2017-07-15] MEDS ORDERED: LIDOCAINE 1% 20 ML VIAL (10MG/ML) FOR IV START INTRADERMA ONE (08:43)
[2017-07-15] MEDS ORDERED: LACTATED RINGERS 1,000 ML IV SCH (09:00)
--- NOTE | 2017-07-15 09:04 | P.PCN ---
Date of Procedure: 07/15/17 Surgeon: Milind Allen Description of Procedure: Procedure(s) Performed: PREOPERATIVE DIAGNOSIS: 1. Lumbar Spondylosis with Facet Arthropathy without myelopathy. 2-. Lumber degenerative disc disease POSTOPERATIVE DIAGNOSIS: 1. Lumbar Spondylosis with Facet Arthropathy without myelopathy. 2-. Lumber degenerative disc disease PROCEDURES: Right Radiofrequency thermocoagulation, L4,L5, Sacral Ala medial branch, with fluoroscopic guidance SURGEON: Milind Allen MD. ANESTHESIA: Moderate sedation with intravenous versed 2 mg and fentanyl 100 mcg and local infiltration with lidocaine 1% 4 ml EBL: Minimal PROCEDURE INDICATION: The patient with low back pain secondary to lumbar facet arthropathy who has undergone previous lumbar radiofrequency ablation bilaterally. This was last done in September of last year. He reported very significant improvement in his low back pain. His symptoms have returned and he presents today for radio frequency ablation on the right side. PROCEDURE DESCRIPTION / TECHNIQUE: The patient was seen and identified in the preoperative area. Risks, benefits, complications, including but not limited to risk of infection ,bleeding , allergic reactions to the medications and no complete pain releife , and alternatives were discussed with the patient, the patient agreed to proceed with the procedure and signed the consent. IV was started. The operative site was marked. Patient was taken to the OR and time out was completed. The patient was placed in the prone position on the procedure table. The lumber area was prepped and draped in the usual sterile fashion. . Vital signs were closely monitored during the procedure .IV sedation was used during the procedure to decrease patients anxiety. Using AP and then oblique fluoroscopy, the ``eye of the Trevor dog corresponding to the connection between the superior and transverse articular processes of the above-mentioned levels were identified, marked, and localized with 1% lidocaine. Subsequently, a 18 -en radiofrequency cannula with a 10-mm active tip was advanced guided by fluoroscopy to each of the ``eyes of the Trevor dog at each site then underwent sensory testing at 50 Hz and 0 to 1 volt and motor testing at 2.5 Hz and 0 to 3 volt with local stimulation, but no radicular symptoms down the legs. Then the sites underwent radiofrequency thermocoagulation at 80 degrees celsius for 90 seconds after injecting 0.5 ml of PF lidocaine 1%. then After the thermocoagulation done , 1 ml of the block solution containing depomedrol 40 mg and 4 ml of maraine 0.5 % was injected at each levels after negative aspiration of CSF and blood and with no paresthesias. Cannulas were retracted while injecting lidocaine 1% until the needle is out.. At the end of the procedure, the skin was cleansed and bandages were applied. COMPLICATIONS: No acute complications. DISPOSITION / PLANS: The patient was placed in a supine position and transferred to the recovery area in a stable condition for observation and was discharged from the recovery room after meeting discharge criteria. Home discharge instructions given to the patient by the staff. The patient was reexamined prior to discharge. He will follow-up in the near future for radiofrequency ablation of the left lumbar medial branch nerves..
[2017-07-15] MEDS ORDERED: IV FLUID CONTINUATION 1,000 ML IV ONE (09:34)
[2017-07-15 09:56] VITALS: BP 171/95; PULSE 74; RESP 18
--- NOTE | 2017-07-15 12:46 | FL ---
Fluoroscopy HISTORY: Pain 10 seconds fluoroscopy time supplied to the referring clinician. 1 intraoperative C-arm images docum ent the procedure. See dictated report from anesthesia.
== END 2017-07-15 10:10 | disposition home or self-care (01) ==
LOC: ORPAIN 08:07
PROVIDERS: ATTEND Pain Medicine Pain Medicine
DX: M47.816 Spondylosis without myelopathy or radiculopathy, lumbar region (principal); M51.36 Other intervertebral disc degeneration, lumbar region; M19.90 Unspecified osteoarthritis, unspecified site; M25.569 Pain in unspecified knee; M25.559 Pain in unspecified hip
CPT/HCPCS: 64635; 64636; J2250; J1030; J2001; J3010; 99152

== ENCOUNTER 2017-07-30 07:26 | Day surgery (SDC) | payer OTHER ==
[2017-07-30 08:11] VITALS: RESP 16; TEMP 97.9
[2017-07-30] MEDS ORDERED: LIDOCAINE 1% 20 ML VIAL (10MG/ML) FOR IV START INTRADERMA ONE (08:15)
--- NOTE | 2017-07-30 09:36 | P.PCN ---
Date of Procedure: 07/30/17 Surgeon: Ge Vaughn Pathology: none sent Condition: stable Disposition: PACU Description of Procedure: PREOPERATIVE DIAGNOSIS: Lumbar spondylosis without myelopathy and facet arthropathy POSTOPERATIVE DIAGNOSIS: Lumbar spondylosis without myelopathy and facet arthropathy PROCEDURES: Left Radiofrequency thermocoagulation, L3-L4, L4-L5, and L5-S1 medial branch, with fluoroscopic guidance. ANESTHESIA: 1% lidocaine plain; Conscious sedation with versed/fentanyl EBL: Minimal PROCEDURE INDICATION: The patient with low back pain secondary to lumbar arthropathy who had more than 50% relief of pain with previous diagnostic lumbar medial branch block with bupivacaine. Patient presents for left lumbar RFA today after good relief from R side; no use of blood thinners. PROCEDURE DESCRIPTION / TECHNIQUE: The patient was seen and identified in the preoperative area. Risks, benefits, complications, and alternatives were discussed with the patient (including but not limited to incomplete pain relief , bleeding, infection, nerve damage, and allergies to medications), the patient agreed to proceed with the procedure and signed the consent after all questions were answered. Patient was taken to the OR and time out was completed to verify proper patient , position, laterality of pain, and allergies. Pt was placed in the prone position. IV was started. Vital signs remained stable throughout the procedure. A pillow was placed under the patients chest to decrease lordosis. The lumbosacral area was prepped and draped in the usual sterile fashion. Vital signs were closely monitored during the procedure. Conscious sedation was used during the procedure to decrease patients anxiety. Using AP and then oblique fluoroscopy, the eye of the Trevor dog corresponding to the connection between the superior and transverse articular processes of left L3, L4, L5 and top of the sacrum were identified, marked, and localized with 1% lidocaine. Subsequently, a 18 gauge, 100-mm radiofrequency cannula with a 10-mm active tip was advanced guided by fluoroscopy to each of the eyes of the Trevor dog at the levels of all four medial branches. Each site then underwent sensory testing at 50 Hz and 0 to 1 volt and motor testing at 2 Hz and 0 to 3 volt with local stimulation, but no radicular symptoms down the legs. Thereafter all four medial branch sites underwent radiofrequency thermocoagulation at 80 degrees Celsius for 90 seconds after injecting 0.5 ml of PF lidocaine 1%. After thermocoagulation, 1 ml of the block solution containing Kenalog 40 mg and 2 mL of preservative-free normal saline was injected at all four medial branch levels after negative aspiration of CSF and blood and with no paresthesias. Cannulas were retracted while injecting lidocaine 1% until the needles were removed. At the end of the procedure, the skin was cleansed and bandages were applied. COMPLICATIONS: No acute complications. DISPOSITION / PLANS: The patient was placed in a supine position and transferred to the recovery area in a stable condition for observation and was discharged from the recovery room after meeting discharge criteria. Home discharge instructions given to the patient by the staff. The patient was reexamined prior to discharge and there were no issues. The patient will schedule a follow up in the clinic in 2-4 weeks.
[2017-07-30] MEDS ORDERED: IV FLUID CONTINUATION 1,000 ML IV ONE (09:43)
[2017-07-30 10:01] VITALS: BP 128/79; PULSE 57
--- NOTE | 2017-07-30 12:01 | FL ---
Fluoroscopy HISTORY: Pain 14 seconds fluoroscopy time supplied to the referring clinician. 2 intraoperative C-arm images docum ent the procedure. See dictated report from anesthesia.
== END 2017-07-30 10:20 | disposition home or self-care (01) ==
LOC: ORPAIN 07:26
PROVIDERS: ATTEND Anesthesiology
DX: G89.29 Other chronic pain (principal); M47.816 Spondylosis without myelopathy or radiculopathy, lumbar region; I10 Essential (primary) hypertension; J45.909 Unspecified asthma, uncomplicated
CPT/HCPCS: 64635; 64636 ×2; J2250; J3301; J3010; 99152

== ENCOUNTER 2017-11-10 11:34 | Emergency (ER) | payer MEDICARE, OTHER ==
--- NOTE | 2017-11-10 12:51 | ED ---
General Adult HPI - General Chief complaint: Extremity Problem,Nontraumatic Stated complaint: Knee to ankle pain Time Seen by Provider: 11/10/17 12:03 Source: patient, RN notes reviewed, old records reviewed Mode of arrival: ambulatory Limitations: no limitations - History of Present Illness Initial comments: Patient is a 62-year-old male with chief complaint of left. Patient reports he' s been having some pain and tenderness radiating down his calf for the past 4 days. He denies any twisting turning of the need to cause the pain. He does have no previous history of blood clots. He states he has no chest pain shortness of breath. He denies any numbness or tingling down the leg. He states that the pain radiates from the back of the knee towards the ankle. - Related Data Home Medications Medication Instructions Recorded Confirmed Zolpidem Tartrate [Ambien] 10 mg PO HS 02/17/14 07/30/17 oxyCODONE-APAP 10-325MG [Percocet 1 tab PO TID PRN 05/31/14 07/30/17 10-325] Ferrous Sulfate [Iron (65 MG 325 mg PO DAILY 06/02/15 07/30/17 Elemental)] Tamsulosin HCl [Flomax] 0.4 mg PO DAILY 06/02/15 07/30/17 Carisoprodol [Soma] 350 mg PO TID PRN 07/04/16 07/30/17 Cyanocobalamin (Vitamin B-12) 1,000 mcg PO DAILY 10/14/16 07/30/17 [Vitamin B-12] Multivitamin [Men's Multi-Vitamin] 1 tab PO DAILY 10/14/16 07/30/17 Ibuprofen [Motrin] 800 mg PO TID PRN 04/30/17 07/30/17 Montelukast [Singulair] 10 mg PO DAILY 04/30/17 07/30/17 Previous Rx's Medication Instructions Recorded Naproxen 500 mg PO BID #20 tablet 11/10/17 Allergies Allergy/AdvReac Type Severity Reaction Status Date / Time No Known Allergies Allergy Verified 11/10/17 11:58 Review of Systems ROS Statement: Those systems with pertinent positive or pertinent negative responses have been documented in the HPI. ROS Other: All systems not noted in ROS Statement are negative. Past Medical History Past Medical History: Hearing Disorder / Deafness, Musculoskeletal Disorder, Osteoarthritis (OA), Prostate Disorder Additional Past Medical History / Comment(s): Deaf Rt ear, BACK PAIN History of Any Multi-Drug Resistant Organisms: MRSA Date of last positivie culture/infection: 2014 MDRO Source:: nose Past Surgical History: Joint Replacement, Orthopedic Surgery Additional Past Surgical History / Comment(s): RT KNEE AND HIP replaced. PAIN PROC, COLLARBONE REPAIRED. Left hip replacement x2 Past Anesthesia/Blood Transfusion Reactions: No Reported Reaction Additional Past Anesthesia/Blood Transfusion Reaction / Comment(s): no hx blood transfusion Past Psychological History: No Psychological Hx Reported Smoking Status: Never smoker Past Alcohol Use History: Rare Past Drug Use History: None Reported - Past Family History Father Family Medical History: Congestive Heart Failure (CHF) Brother(s) Family Medical History: Deep Vein Thrombosis (DVT) General Exam - General Exam Comments Initial Comments: 62-year-old male. Alert and oriented. No significant distress. Limitations: no limitations General appearance: alert, in no apparent distress Head exam: Present: atraumatic, normocephalic, normal inspection Eye exam: Present: normal appearance, PERRL, EOMI. Absent: scleral icterus, conjunctival injection, periorbital swelling ENT exam: Present: normal exam, mucous membranes moist Neck exam: Present: normal inspection. Absent: tenderness, meningismus, lymphadenopathy Respiratory exam: Present: normal lung sounds bilaterally. Absent: respiratory distress, wheezes, rales, rhonchi, stridor Cardiovascular Exam: Present: regular rate, normal rhythm, normal heart sounds. Absent: systolic murmur, diastolic murmur, rubs, gallop, clicks GI/Abdominal exam: Present: soft, normal bowel sounds. Absent: distended, tenderness, guarding, rebound, rigid Extremities exam: Present: normal inspection, full ROM, normal capillary refill. Absent: tenderness, pedal edema, joint swelling, calf tenderness Left Knee exam: Present: normal inspection, full ROM Lower Leg exam: Present: tenderness (Patient has posterior calf tenderness. No palpable cord.). Absent: normal inspection Ankle exam: Present: normal inspection, full ROM Foot/Toe exam: Present: normal inspection, full ROM Neurovascular tendon exam: Present: no vascular compromise Back exam: Present: normal inspection Course Vital Signs 11/10/17 11:55 Temperature 98.2 F Pulse Rate 65 Respiratory 20 Rate Blood Pressure 171/84 O2 Sat by Pulse 99 Oximetry Medical Decision Making - Medical Decision Making 62-year-old female presents emergency Department chief complaint of left knee pain and pain extending radiate from the knee towards the ankle. He reports some tenderness over the back of the calf. At this time has no pulses normal sensation distally. No evidence of skin changes overlying the leg. He has full range of motion of the knee. This time patient's ultrasound was negative for DVT. There is evidence of a likely Bonilla's cyst measuring 5 cm x 2 cm. Patient x-ray of the knee shows evidence loss or thrills. Discussed that her DVT in the swelling and irritation lately related to the Bonilla's cyst. I did to give the Patient orthopedic follow-up. Discussed and temperature medicine compression wrap over the knee. Patient understands treatment plan will comply. Return parameters were discussed. - Radiology Data Radiology results: report reviewed Negative for DVT. There is a 5.9 x 2.1 x 3.8 cm irregular cystic area on the medial vessels likely Bonilla's cyst noted. The x-ray shows evidence of osteoarthritis. Disposition Clinical Impression: Synovial cyst of popliteal space [Bonilla], left knee, Knee osteoarthritis Disposition: HOME SELF-CARE Condition: Good Instructions: Bakers Cyst (ED) Additional Instructions: Patient advised follow-up with primary care provider and orthopedic provider. Return to emergency department if any alarming signs symptoms occur. Prescriptions: Naproxen 500 mg PO BID #20 tablet Is patient prescribed a controlled substance at d/c from ED?: No Referrals: Shaun Wang MD [Primary Care Provider] - 1-2 days Reece Mac MD [STAFF PHYSICIAN] - 1-2 days Time of Disposition: 13:56
--- NOTE | 2017-11-10 13:34 | US ---
EXAMINATION TYPE: US venous doppler duplex LE LT DATE OF EXAM: 11/10/2017 12:57 PM COMPARISON: NONE CLINICAL HISTORY: Pain. Left knee and lower leg pain x 5 days SIDE PERFORMED: Left TECHNIQUE: The lower extremity deep venous system is examined utilizing real time linear array sonog otoniel with graded compression, doppler sonography and color-flow sonography. VESSELS IMAGED: External Iliac Vein (EIV) Common Femoral Vein Deep Femoral Vein Greater Saphenous Vein * Femoral Vein Popliteal Vein Small Saphenous Vein * Proximal Calf Veins (* superficial vessels) There is normal flow, compressibility, vascular waveforms. Left Leg: Appears negative for DVT, popliteal fossa: 5.9 x 2.1 x 3.8cm irregular cystic area seen me dial to vessels, probable Bonilla's cyst IMPRESSION: No evident deep venous thrombosis at or above the left knee. Probable semimembranosus gas trocnemius cyst.
--- NOTE | 2017-11-10 13:48 | XR ---
Left knee HISTORY: Left knee pain 3 views of the left knee There is marginal spurring especially in the medial compartment with joint space loss and remodeling. Subchondral sclerosis and possible geode formation noted. Alignment and bone mineralization otherwis e maintained. No fracture or dislocation. Hypertrophic change also present at the patellofemoral join t. There may be small joint effusion in the suprapatellar location. IMPRESSION: Osteoarthritis.
[2017-11-10 14:08] VITALS: BP 144/73; PULSE 81; RESP 17; TEMP 98.7
== END 2017-11-10 14:08 | disposition home or self-care (01) ==
LOC: EC 11:34
DX: M71.22 Synovial cyst of popliteal space [Baker], left knee (principal); M17.12 Unilateral primary osteoarthritis, left knee; M79.605 Pain in left leg; N42.9 Disorder of prostate, unspecified; Z86.14 Personal history of Methicillin resistant Staphylococcus aureus infection; Z79.899 Other long term (current) drug therapy; Z96.651 Presence of right artificial knee joint; Z96.642 Presence of left artificial hip joint
CPT/HCPCS: 99284

== ENCOUNTER → 2018-03-05 | Outpatient (CLI) | payer MEDICARE, OTHER ==
[2018-03-05 10:13] VITALS: BP 123/70; PULSE 66; RESP 18
--- NOTE | 2018-03-05 10:27 | P.PAINPG ---
Subjective Progress Note Date: 03/05/18 This is follow-up visit for this patient with a history of severe and chronic low back pain secondary to lumbar degenerative disc diseases , lumbar spondylosis with facet arthropathy, We have done interventional pain procedures radiofrequency ablation of the medial branch lumbar area at L3-4/L4 5/L5-S1, he had excellent pain relief after the radiofrequency,. If lasted for almost 6 months, Patients currently on complaining of severe axial low back pain , he used pain medication Percocet 10/325 every 6 hours and naproxen 500 mg twice a day Patient denies any side effects of the medication, denies excessive drowsiness or sleepiness, denies suicidal ideation, and reports that the current pain medication is helping to control the pain ,and improve activity of daily living Patient denies any motor or sensory deficit , patient denies any fever or night sweats, denies any change in the bowel movements or urination Physical Examinations : 1-Constitutional : Cooperative , not in acute distress . 2-HEENT : nech ; supple , no Lymphadenopathy , no Thyromegaly , normal thyroid size . eyes : no ptosis , no icterus, no photophobia . ENT : normal of hearing , normal oropharynx , no Thrush . 3- Respiratory : Chest clear to auscultations Bilaterally , no wheezing , no Rhonchi . 4- Cardiovascular : regular rate and rhythem , S1 , S2 , no S3 , no S4. 5- Gastrointestinal : abdomen soft no tenderness , bowel sounds positive all four quadrents , no organomegally . 6- Genitourinary : Defferred . 7- neurologic: Cranial nerve II to XII intact , no focal neurological deffecit . 8- Psychatric: alert , oriented X 3 , appropriate affect , intact judgment and insight . 9- Lymphatic : no Lymphadenopathy . 10- Musculoskeltal : exams of the cervical spine = motor strength normal bilateral upper extremities facet loading test cervical area positive. exams of the Lumber spine =motor strength lower extremities ,thigh and legs .5/5 deep tendon reflexes : normal Knee Jerk , normal ankle Jerk . lumber facet Loading Test positive strait leg raising test positive at 30 degree , RT ,LT , Fabere test positive RT and positive LT . Range of motion: Range of motion in flexion of the lumbar spine 30 degrees Range of motion range of motion of extension of the lumbar spine 10 Sever tenderness over the Sacroiliac joint on the Right , and Left side Assessment and plan = Chronic low back pain secondary to lumbar degenerative disc disease , lumbar spondylosis with facet arthropathy without myelopathy Patient had excellent pain relief after radiofrequency ablation of the medial branch lumbar area, I he get relief almost 6 months, currently patient had symptoms of facetogenic component of low back pain, his insurance did not approve to have repeat radiofrequency ablation of the medial branch until July 2018, Patient could benefit from lumbar epidural steroid injection under fluoroscopy guidance at L5-S1 , procedure risk and benefits and alternatives discussed with the patient he agreed with the preceding Objective - Vital Signs Vital signs: Vital Signs Temp Pulse 66 03/05/18 10:09 Resp 18 03/05/18 10:09 BP 123/70 03/05/18 10:09 Pulse Ox 99 03/05/18 10:09 Intake & Output 03/04/18 03/05/18 03/05/18 18:59 06:59 18:59 Weight 111.13 kg PQRS Measure Charge Sheet Measure #130: Documentation of Current Meds in Medical Chart: Patient's medications documented in chart Measure #226: Tobacco Use: Screen & Cessation Intervention: Pt not a tobacco user Measure #111: Pneumonia Vaccination: Pneumococcal vaccine administered or previously received Measure #47: Advance Care Plan: Advance care planning discussed & documented, pt chose/unable to give Measure #412: Opioid Treatment Agreement: No documentation of signed opioid treatment agreement Measure #408: Opioid Therapy Follow-up Evaluation: Patient had NO f/u eval minimum every 3 months during opioid therapy Measure #317: Preventitive Care & Scrn High Bld Press & F/U: Normal blood pressure, f/u not required Measure #128: Body Mass Index (BMI) Screening & Follow-up: BMI documented ABOVE normal parameters - f/u documented Measure #131: Pain Assessment & Follow-up: Pain positive & plan documented, Follow-up scheduled Measure #431: Unhealthy Alcohol Use Preventative Care & Scrn: Patient not identified as an unhealthy alcohol user PQRS Narrative: Smoking Status Never smoker Do You Want the Pneumonia Vaccine Up to Date Vaccine AT THIS TIME? Blood Pressure 123/70 Pain Intensity [Bilateral 7 Lower Back] Scale Used Numeric (1 - 10) Hx Alcohol Use (MH) Yes Home Medications: Ambulatory Orders Zolpidem Tartrate [Ambien] 10 mg PO HS 02/17/14 oxyCODONE-APAP 10-325MG [Percocet 10-325] 1 tab PO TID PRN 05/31/14 Ferrous Sulfate [Iron (65 MG Elemental)] 325 mg PO DAILY 06/02/15 Tamsulosin HCl [Flomax] 0.4 mg PO DAILY 06/02/15 Carisoprodol [Soma] 350 mg PO TID PRN 07/04/16 Cyanocobalamin (Vitamin B-12) [Vitamin B-12] 1,000 mcg PO DAILY 10/14/16 Multivitamin [Men's Multi-Vitamin] 1 tab PO DAILY 10/14/16 Ibuprofen [Motrin] 800 mg PO TID PRN 04/30/17 Montelukast [Singulair] 10 mg PO DAILY 04/30/17 Naproxen 500 mg PO BID #20 tablet 11/10/17 Phentermine HCl [Adipex P] 15 mg PO AC-BRKFST 11/10/17 Cetirizine HCl [Zyrtec] 1 tab PO DAILY 01/15/18 Controlled Substance Measures - Controlled Substance Measures Is patient prescribed a controlled substance at discharge?: No When asked, does pt state using other controlled substances?: No If prescribed controlled substance>3 days was MAPS reviewed?: No If Rx opioid, was Start Talking consent form obtained?: No If opioid is for acute pain is fill amount 7 days or less?: No Was information provided regarding opioid addiction?: No
== END ==
LOC: PNWHC3 10:01
PROVIDERS: ATTEND Specialist
DX: G89.29 Other chronic pain (principal); M51.36 Other intervertebral disc degeneration, lumbar region; M47.816 Spondylosis without myelopathy or radiculopathy, lumbar region; M46.96 Unspecified inflammatory spondylopathy, lumbar region; Z79.899 Other long term (current) drug therapy; Z79.891 Long term (current) use of opiate analgesic; Z79.1 Long term (current) use of non-steroidal anti-inflammatories (NSAID)
CPT/HCPCS: 99211

== ENCOUNTER 2018-03-25 09:56 | Day surgery (SDC) | payer MEDICARE, OTHER ==
[2018-03-23 09:53] VITALS: BMI 33.5
[~2018-03-25 09:56] MED LIST changes: -LACTATED RINGERS 1,000 ML IV SCH; +SODIUM CHLORIDE 0.9% 500 ML 500 ML IV SCH
[2018-03-25] MEDS ORDERED: LIDOCAINE 1% 20 ML VIAL (10MG/ML) FOR IV START INTRADERMA ONE (10:08)
[2018-03-25 10:17] VITALS: TEMP 97.6
[2018-03-25] MEDS ORDERED: LACTATED RINGERS 1,000 ML IV ONE (10:21)
--- NOTE | 2018-03-25 11:06 | P.PCN ---
Date of Procedure: 03/25/18 Surgeon: Margie Parnell Pathology: none sent Condition: stable Disposition: PACU Description of Procedure: PREOPERATIVE DIAGNOSIS: 1-Lumbar radiculopathy 2- Lumber Degenerative Disc Diseases. POSTOPERATIVE DIAGNOSIS: 1-Lumbar radiculopathy. 2-Lumbar Degenerative Disc Diseases PROCEDURE 1. Lumbar epidural steroid injection under fluoroscopic guidance at the L5-S1 level in the left paramedian approach 2. Lumbar epidurogram. ANESTHESIA: Local with 1% lidocaine; and IV moderate conscious sedation with Versed and fentanyl EBL: Minimal PROCEDURE INDICATION: The patient with low back pain and radiculitis symptoms unresponsive to conservative treatment. Fluoroscopy was used to optimize visualization of the needle placement and to maximize safety. PROCEDURE DESCRIPTION / TECHNIQUE: The patient was seen and identified in the preoperative area. Risks, benefits , complications including but not limited to infections ,bleeding ,allergic reaction to the medications ,nerve damage and not complete pain relief , and alternatives were discussed with the patient. The patient agreed to proceed with the procedure and signed the consent. IV was started, and vital signs were stable. Patient was taken to the OR and time out was completed. The patient was placed in the prone position on procedure table and a pillow was placed under the abdomen to reduce lumbar lordosis. The lumbosacral area was prepped and draped in the usual sterile fashion with ChloraPrep.Patient was closely monitored during the procedure. Conscious sedation was used during the procedure to decrease patients anxiety. Vital signs were monitered during the entire procedure. Using anterior-posterior fluoroscopy, the L5S1 interlaminar space was identified and the skin over this site was marked and then infiltrated with 1% lidocaine subcutaneously. Subsequently, a 20-gauge Tuohy epidural needle was inserted and advanced toward the epidural space using the Loss of resistance to air technique and guided by AP and lateral fluoroscopy. The correct needle position in the epidural space was verified with the injection of 1 mL of the water soluble contrast dye Omnipaque 180 contrast and observing an excellent epidurogram with the epidural spread of the dye, after negative aspiration for blood and CSF and in the absence of paresthesias. Again after negative aspiration, a 8 ml mixture containing 40 mg of Kenalog and 5 ml of preservative free Normal Saline, and 2 ml of preservative free ropivacaine 0.5% solution was injected and a washout of epidurogram was seen. Needle was withdrawn intact, skin was cleansed, and bandages were applied. patient tolerated procedure well and was transferred to PACU in stable condition. COMPLICATIONS: None DISPOSITION / PLANS: The patient was placed in a supine position and transferred to the recovery area in a stable condition for observation. There was no evidence of lower extremity motor or sensory deficit after the procedure. Patient was discharged from the recovery room after meeting discharge criteria. Home discharge instructions were given to the patient by the staff. The patient was reexamined prior to discharge. The patient will schedule a follow up in the clinic in 2-4 weeks.
[2018-03-25] MEDS ORDERED: IV FLUID CONTINUATION 1,000 ML IV ONE ×2 (11:12)
[2018-03-25 11:33] VITALS: BP 125/74; PULSE 92; RESP 18
--- NOTE | 2018-03-25 13:19 | FL ---
Fluoroscopy HISTORY: Pain 5 seconds fluoroscopy time supplied to the referring clinician. 2 intraoperative C-arm images docume nt the procedure. See dictated report from anesthesia.
== END 2018-03-25 11:42 | disposition home or self-care (01) ==
LOC: ORPAIN 09:56
PROVIDERS: ATTEND Anesthesiology
DX: M47.26 Other spondylosis with radiculopathy, lumbar region (principal); M51.16 Intervertebral disc disorders with radiculopathy, lumbar region
CPT/HCPCS: 62323; J2250; J3301; J3010; Q9966; 99152

== ENCOUNTER → 2018-04-29 | Outpatient (CLI) | payer MEDICARE, OTHER ==
[2018-04-29 13:27] VITALS: RESP 16
[2018-04-29 13:29] VITALS: BP 118/77; PULSE 79
--- NOTE | 2018-04-30 08:12 | P.PN ---
Subjective Progress Note Date: 04/29/18 This is follow-up visit for this patient with a history of severe and chronic low back pain secondary to lumbar degenerative disc diseases , lumbar spondylosis with facet arthropathy, We have done interventional pain procedures radiofrequency ablation of the medial branch lumbar area the pain relief after the radiofrequency lasted for 6 month, later on patient developed low back pain, and recently we have done lumbar epidural steroid injections 2, patient had good pain relief Patients currently on complaining of severe axial low back pain , he used pain medication Percocet 10/325 every 6 hours and naproxen 500 mg twice a day, Soma 350 mg 3 times a day Patient given prescription refills from the primary care Patient denies any side effects of the medication, denies excessive drowsiness or sleepiness, denies suicidal ideation, and reports that the current pain medication is helping to control the pain ,and improve activity of daily living Patient denies any motor or sensory deficit , patient denies any fever or night sweats, denies any change in the bowel movements or urination Physical Examinations : 1-Constitutional : Cooperative , not in acute distress . 2-HEENT : nech ; supple , no Lymphadenopathy , no Thyromegaly , normal thyroid size . eyes : no ptosis , no icterus, no photophobia . ENT : normal of hearing , normal oropharynx , no Thrush . 3- Respiratory : Chest clear to auscultations Bilaterally , no wheezing , no Rhonchi . 4- Cardiovascular : regular rate and rhythem , S1 , S2 , no S3 , no S4. 5- Gastrointestinal : abdomen soft no tenderness , bowel sounds positive all four quadrents , no organomegally . 6- Genitourinary : Defferred . 7- neurologic: Cranial nerve II to XII intact , no focal neurological deffecit . 8- Psychatric: alert , oriented X 3 , appropriate affect , intact judgment and insight . 9- Lymphatic : no Lymphadenopathy . 10- Musculoskeltal : exams of the cervical spine = motor strength normal bilateral upper extremities facet loading test cervical area positive. exams of the Lumber spine =motor strength lower extremities ,thigh and legs .5/5 deep tendon reflexes : normal Knee Jerk , normal ankle Jerk . lumber facet Loading Test positive strait leg raising test positive at 30 degree , RT ,LT , Fabere test positive RT and positive LT . Range of motion: Range of motion in flexion of the lumbar spine 30 degrees Range of motion range of motion of extension of the lumbar spine 10 Sever tenderness over the Sacroiliac joint on the Right , and Left side Assessment and plan = Chronic low back pain secondary to lumbar degenerative disc disease , lumbar spondylosis with facet arthropathy without myelopathy Patient had excellent pain relief after radiofrequency ablation of the medial branch lumbar area, I he get relief almost 6 months, currently patient had symptoms of facetogenic component of low back pain, his insurance did not approve to have repeat radiofrequency ablation of the medial branch until July 2018, Patient could benefit from repeate lumbar epidural steroid injection under fluoroscopy guidance at L5-S1 , procedure risk and benefits and alternatives discussed with the patient he agreed with the preceding PQRS Measure Charge Sheet Measure #130: Documentation of Current Meds in Medical Chart: Patient's medications documented in chart Measure #226: Tobacco Use: Screen & Cessation Intervention: Pt not a tobacco user Measure #111: Pneumonia Vaccination: Pneumococcal vaccine administered or previously received Measure #47: Advance Care Plan: Advance care planning discussed & documented, pt chose/unable to give Measure #412: Opioid Treatment Agreement: No documentation of signed opioid treatment agreement Measure #408: Opioid Therapy Follow-up Evaluation: Patient had NO f/u eval minimum every 3 months during opioid therapy Measure #317: Preventitive Care & Scrn High Bld Press & F/U: Normal blood pressure, f/u not required Measure #128: Body Mass Index (BMI) Screening & Follow-up: BMI documented ABOVE normal parameters - f/u documented Measure #131: Pain Assessment & Follow-up: Pain positive & plan documented, Follow-up scheduled Measure #431: Unhealthy Alcohol Use Preventative Care & Scrn: Patient not identified as an unhealthy alcohol user PQRS Narrative: Home Medications: Ambulatory Orders Zolpidem Tartrate [Ambien] 10 mg PO HS 02/17/14 oxyCODONE-APAP 10-325MG [Percocet 10-325] 1 tab PO TID PRN 05/31/14 Ferrous Sulfate [Iron (65 MG Elemental)] 325 mg PO DAILY 06/02/15 Tamsulosin HCl [Flomax] 0.4 mg PO DAILY 06/02/15 Carisoprodol [Soma] 350 mg PO TID PRN 07/04/16 Cyanocobalamin (Vitamin B-12) [Vitamin B-12] 1,000 mcg PO DAILY 10/14/16 Multivitamin [Men's Multi-Vitamin] 1 tab PO DAILY 10/14/16 Ibuprofen [Motrin] 800 mg PO TID PRN 04/30/17 Montelukast [Singulair] 10 mg PO DAILY 04/30/17 Naproxen 500 mg PO BID #20 tablet 11/10/17 Phentermine HCl [Adipex P] 15 mg PO AC-BRKFST 11/10/17 Cetirizine HCl [Zyrtec] 1 tab PO DAILY 01/15/18 Controlled Substance Measures - Controlled Substance Measures Is patient prescribed a controlled substance at discharge?: No When asked, does pt state using other controlled substances?: No If prescribed controlled substance>3 days was MAPS reviewed?: No If Rx opioid, was Start Talking consent form obtained?: No If opioid is for acute pain is fill amount 7 days or less?: No Was information provided regarding opioid addiction?: No Objective - Vital Signs Vital signs: Vital Signs Temp Pulse 79 04/29/18 13:21 Resp 16 04/29/18 13:21 BP 118/77 04/29/18 13:21 Pulse Ox Intake & Output 04/29/18 04/30/18 04/30/18 18:59 06:59 18:59 Weight 111.13 kg
== END ==
LOC: PNWHC3 13:01
PROVIDERS: ATTEND Specialist
DX: G89.29 Other chronic pain (principal); M51.36 Other intervertebral disc degeneration, lumbar region; M47.816 Spondylosis without myelopathy or radiculopathy, lumbar region; M46.96 Unspecified inflammatory spondylopathy, lumbar region; Z79.899 Other long term (current) drug therapy; Z79.891 Long term (current) use of opiate analgesic; Z79.1 Long term (current) use of non-steroidal anti-inflammatories (NSAID); Z79.2 Long term (current) use of antibiotics
CPT/HCPCS: 99211

== ENCOUNTER 2018-05-12 06:29 | Day surgery (SDC) | payer MEDICARE, OTHER ==
[2018-05-06 09:42] VITALS: BMI 34.8
[2018-05-12 06:49] VITALS: RESP 18; TEMP 97.8
[2018-05-12] MEDS ORDERED: LACTATED RINGERS 1,000 ML IV ONE (06:49)
[2018-05-12] MEDS ORDERED: LIDOCAINE 1% 20 ML VIAL (10MG/ML) FOR IV START INTRADERMA ONE (06:49)
--- NOTE | 2018-05-12 07:54 | P.PCN ---
Date of Procedure: 05/12/18 Procedure(s) Performed: PREOPERATIVE DIAGNOSIS: 1- Lumbar Degenerative Disc Diseases 2-Lumbar spondylosis with Facet arthropathy without myelopathy POSTOPERATIVE DIAGNOSIS: 1-Lumber Degenerative Disc Diseases 2-Lumbar spondylosis with Facet arthropathy without myelopathy PROCEDURE 1. Lumbar epidural steroid injection under fluoroscopic guidance at the L4-5 level. 2. Lumbar epidurogram. ANESTHESIA: Local with 1% lidocaine 3 ml and , moderate sedation with intravenous Versed 2 mg ,and fentanyle 50 Mcg EBL: Minimal PROCEDURE INDICATION: The patient with low back pain and radiculitis symptoms unresponsive to conservative treatment. Fluoroscopy was used to optimize visualization of the needle placement and to maximize safety. PROCEDURE DESCRIPTION / TECHNIQUE: The patient was seen and identified in the preoperative area. Risks, benefits, complications including but not limited to infections ,bleeding ,allergic reaction to the medications ,nerve damage and not complete pain releife , and alternatives were discussed with the patient. The patient agreed to proceed with the procedure and signed the consent. IV was started, and vital signs were stable. Patient was taken to the OR and time out was completed. The patient was placed in the prone position on procedure table and a pillow was placed under the abdomen to reduce lumbar lordosis. The lumbosacral area was prepped and draped in the usual sterile fashion.ere closely monitored during the procedure. Conscious sedation was used during the procedure to decrease patients anxiety. Vital signs was monitered during the entire procedure. Using anterior-posterior fluoroscopy, the L4-5 interlaminar space was identified and the skin over this site was marked and then infiltrated with 1% lidocaine subcutaneously. Subsequently, a 20-gauge Tuohy epidural needle was inserted and advanced toward the epidural space using the ``Loss of resistance technique and guided by AP and lateral fluoroscopy. The correct needle position in the epidural space was verified with the injection of 2 mL of the water soluble contrast dye Isovue 200 contrast and observing an excellent epidurogram with the epidural spread of the dye, after negative aspiration for blood and CSF and in the absence of paresthesias. Again after negative aspiration, a 6 ml mixture containing 80 mg of Depo-medrol , and 2 ml of preservative free Normal Saline, and 2 ml of preservative free lidocaine 1% solution was injected and a washout of epidurogram was seen. Needle was withdrawn intact, skin was cleansed, and bandages were applied. COMPLICATIONS: None DISPOSITION / PLANS: The patient was placed in a supine position and transferred to the recovery area in a stable condition for observation. There was no evidence of lower extremity motor or sensory deficit after the procedure. Patient was discharged from the recovery room after meeting discharge criteria. Home discharge instructions were given to the patient by the staff. The patient was reexamined prior to discharge. The patient will schedule a follow up in the clinic in 2-4 weeks.
[2018-05-12] MEDS ORDERED: IV FLUID CONTINUATION 600 ML IV ONE (08:01)
[2018-05-12 08:31] VITALS: BP 130/81; PULSE 78
--- NOTE | 2018-05-12 08:32 | FL ---
EXAMINATION TYPE: FL guided pain mgmt statistic DATE OF EXAM: 05/12/2018 CLINICAL HISTORY: Low back pain. TECHNIQUE: Fluoroscopy. COMPARISON: None. FINDINGS: Fluoroscopic guidance was provided during pain relief procedure performed by Dr. Dean . A total of 27th seconds of fluoroscopic time was utilized during the procedure and 2 spot images a re acquired. Images acquired shows needle localization of the lumbar spine. IMPRESSION: As Above.
== END 2018-05-12 08:28 | disposition home or self-care (01) ==
LOC: ORPAIN 06:29
PROVIDERS: ATTEND Specialist
DX: M47.26 Other spondylosis with radiculopathy, lumbar region (principal); M51.16 Intervertebral disc disorders with radiculopathy, lumbar region
CPT/HCPCS: 62323; J2250; J1030; J3010; Q9966

== ENCOUNTER → 2018-06-01 | Outpatient (CLI) | payer MEDICARE, OTHER ==
[2018-06-01 12:32] VITALS: BP 151/84; PULSE 67; RESP 16
--- NOTE | 2018-06-01 12:57 | P.PN ---
Subjective Progress Note Date: 06/01/18 Chalo is a 62-year-old gentleman who presents today with a chief complaint of back pain. He reports back pain across his lumbar spine sometimes into his legs. He reports that his pain is worse with standing for long time and worse with bending over. He reports that sometimes limits the amount of time is able to stand or walk. He has had bilateral hip replacement last one being 2016. His pain is described as an aching dull pain with sometimes radiates into both eyes. He is status post 3 epidural steroid injections recently which she reports were only transiently helpful. He reports one thing that really helps him is the radiofrequency ablation which was last done in July 2017. Per his insurance day only will cover up to once a year. He continues to use pain medication as prescribed by his other doctors. He denies any new symptoms, denies any bowel or bladder incontinence or any new lower extremity weakness. Objective - Vital Signs Vital signs: Vital Signs Temp Pulse 67 06/01/18 12:29 Resp 16 06/01/18 12:29 BP 151/84 06/01/18 12:29 Pulse Ox 97 06/01/18 12:29 Intake & Output 05/31/18 06/01/18 06/01/18 18:59 06:59 18:59 Weight 111.13 kg - Exam General: Awake and alert oriented 3 no distress Respiratory exam: No audible wheezing no accessory muscle usage Cardiovascular exam: regular rate, palpable bilateral pulses, no lower extremity edema Abdominal exam: No distention nontender to palpation Cervical spine: Normal alignment, Spurling's negative, facet loading negative Lumbar spine: There is an exaggerated lumbar lordosis, tender to palpation over bilateral facet joints. There is pain with extension and flexion of the lumbar spine. Tenderness over the SI joint or over the trochanteric bursa. His limited range of motion of the lumbar spine. Straight leg raise is negative. Patient has a Varus deformity in both lower extremities Sacroiliac joints: Nontender to palpation, SALVADOR is negative, Gaenselon negative Neuro exam: Normal sensation in bilateral upper extremities, deep tendon reflexes are 2+ bilateral upper extremities. Normal sensation in bilateral lower extremities. Deep tendon reflexes are 2+ in lower extremities Psych exam: Cooperative, appropriate mood Assessment and Plan Assessment: Lumbar spondylosis without myelopathy Plan: After examination of the patient and review of the medical records I believe repeating the radiofrequency ablation would be his best interest. We will try to get approval for sooner than July. If not possible repeated in July. He continues to use medications as prescribed by his primary care physician. We do not recommend any medications. We'll see him in the clinic as soon as we get authorization for the procedure
== END | disposition home or self-care (01) ==
LOC: PNWHC3 12:14
PROVIDERS: ATTEND Hospitalist
DX: M47.816 Spondylosis without myelopathy or radiculopathy, lumbar region (principal); Z98.890 Other specified postprocedural states
CPT/HCPCS: 99211

== ENCOUNTER → 2018-06-30 | Outpatient (CLI) | payer MEDICARE, OTHER ==
[2018-06-30 15:24] VITALS: BP 139/93; PULSE 87; TEMP 98.1; BMI 37.3
--- NOTE | 2018-06-30 17:02 | P.HPBAR ---
Bariatric H&P - History & Physicial H&P Date: 06/30/18 History & Physicial: Visit/CC: presurgical visit Patient initial contact: Initial weight: Initial weight in pounds: Height: 5 ft 11 in Initial BMI: Last weight: Current weight: 121.563 kg Current weight in pounds: 268.00 Current BMI: 37.3 [place] body weight (based on NIH guidelines): 78.018 kg Excess body weight loss: The patient is a 62 year-old M who presents for Bariatric Assessment. Patient presents today as a new patient for the bariatric center. Patient states his weight is usually in the 220 range. Over the winter he says he typically gains weight. He was as high as 280 something recently. Currently at 278. Patient is confident that he will get back down into the 220s within the next several months. 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 Patient was considering weight loss surgery because of his gradual increase in weight over the winter months. Patient complains of arthritis in the hip and knee. Otherwise fairly healthy. Patient denies history of dysphagia or DVT. Mild GERD symptoms at times. Patient was interested primarily and sleeve gastrectomy at the time of the office visit. Review of Systems The patient denies any acute changes in vision or hearing, no dysphagia or odynophagia, no chest pain or shortness of breath, no dysuria or hematuria, no headache, no runny nose, no rectal bleeding or melena, no unexplained weight loss Past Medical History Past Medical History: Hearing Disorder / Deafness, Musculoskeletal Disorder, Osteoarthritis (OA), Prostate Disorder Additional Past Medical History / Comment(s): Deaf Rt ear, BACK PAIN History of Any Multi-Drug Resistant Organisms: MRSA Year Discovered:: 2014 MDRO Source:: nose Past Surgical History: Joint Replacement, Orthopedic Surgery Additional Past Surgical History / Comment(s): RT KNEE AND HIP replaced. PAIN PROC, COLLARBONE REPAIRED. Left hip replacement x2 Past Anesthesia/Blood Transfusion Reactions: No Reported Reaction Additional Past Anesthesia/Blood Transfusion Reaction / Comm: no hx blood transfusion Smoking Status: Never smoker - Past Family History Father Family Medical History: Congestive Heart Failure (CHF) Brother(s) Family Medical History: Deep Vein Thrombosis (DVT) Surgical - Exam Vital Signs Temp Pulse BP 98.1 F 87 139/93 06/30/18 15:15 05/14/19 15:15 06/30/18 15:15 Physical exam: General: Well-developed, well-nourished HEENT: Normocephalic, sclerae nonicteric Abdomen: Nontender, nondistended Extremities: No edema Neuro: Alert and oriented Bariatric Assessment & Plan (1) Obesity (BMI 30-39.9) Narrative/Plan: Patient has a BMI of 37. Despite that the patient's body mass composition suggests mostly muscle mass as he is in very good shape. I discussed with the patient that for the modest amount of weight that he is trying to lose surgical intervention carries with it excessive risks. At this time he and I decided to continue with observation. He will contact me if his weight becomes more difficult to manage. The patient after discussing this was happy with that decision and states that his family was not supportive of him having weight loss surgery. Status: Acute Bariatric Checklist Checklist: Plan: Checklist: EGD: 1. Hiatal hernia: 2. H. Pylori: HgbA1c: Vitamin D: Smoking: Never smoker Primary care physician referral: Felipe Psychiatry clearance: Cardiology clearance: Sleep study: Diet journal: VTE risk score: VTE risk level: Rehab needs at discharge:
== END ==
LOC: BARWHC3 14:45
PROVIDERS: ATTEND Surgery
DX: E66.9 Obesity, unspecified (principal); Z68.37 Body mass index [BMI] 37.0-37.9, adult
CPT/HCPCS: 99201; 99211

== ENCOUNTER 2018-07-21 08:08 | Day surgery (SDC) | payer MEDICARE, OTHER ==
[2018-07-17 11:13] VITALS: BMI 34.8
[2018-07-21 08:17] VITALS: RESP 16; TEMP 98.1
[2018-07-21] MEDS ORDERED: LIDOCAINE 1% 20 ML VIAL (10MG/ML) FOR IV START INTRADERMA ONE (08:24)
[2018-07-21] MEDS ORDERED: LACTATED RINGERS 1,000 ML IV ONE (08:24)
--- NOTE | 2018-07-21 08:58 | P.PCN ---
Date of Procedure: 07/21/18 Description of Procedure: PREOPERATIVE DIAGNOSIS: Lumbar Facet Arthropathy. POSTOPERATIVE DIAGNOSIS: Lumbar Facet Arthropathy. PROCEDURES: RIGHT Radiofrequency thermocoagulation of L3 4 L4 5 L5-S1 medial branches, with fluoroscopic guidance ANESTHESIA: IV sedation with versed and fentanyl and local infiltration with lidocaine 1% 10 ml PROCEDURE INDICATION: The patient with low back pain secondary to lumbar facet arthropathy who had more than 50% relief of pain with previous diagnostic lumbar medial branch block with local anesthetic. PROCEDURE DESCRIPTION / TECHNIQUE: The patient was seen and identified in the preoperative area. Risks, benefits, complications, including but not limited to risk of infection ,bleeding , allergic reactions to the medications and no complete pain relief , and alternatives were discussed with the patient, the patient agreed to proceed with the procedure and signed the consent. IV was started. Vital signs remained stable throughout the procedure. Patient was taken to the OR and time out was completed. The patient was placed in the prone position on the procedure table. The lumber area was prepped and draped in the usual sterile fashion. . Vital signs were closely monitored during the procedure. IV sedation was used during the procedure to decrease patient anxiety. Using AP and then oblique fluoroscopy, the eye of the Trevor dog corresponding to the connection between the superior and transverse articular processes of L4, L5, sacral ala were identified, marked, and localized with 1% lidocaine. Subsequently, a 20 [id number] radiofrequency cannula with a 10-mm active tip was advanced guided by fluoroscopy to the junction of the pedicle and transverse process of each identified level. Each site then underwent sensory testing at 50 Hz and 0 to 1 volt and motor testing at 2.5 Hz and 0 to 3 volt with local stimulation, no radicular symptoms sensed by the patient and no obvious motor stimulation noted. Thereafter the tested sites underwent radiofrequency thermocoagulation at 80 degrees celsius for 90 seconds after injecting 1 ml of PF lidocaine 1%. Then after the thermocoagulation was done, 2 ml of the block solution containing lidocaine 1% was injected at the lesioned sites after negative aspiration of CSF and blood and with no paresthesias. Cannulas were retracted. At the end of the procedure, the skin was cleansed and bandages were applied. COMPLICATIONS: No acute complications. DISPOSITION / PLANS: The patient was placed in a supine position and transferred to the recovery area in a stable condition for observation and was discharged from the recovery room after meeting discharge criteria. Home discharge instructions given to the patient by the staff. The patient was reexamined prior to discharge. We'll do a left side in 2-3 weeks
[2018-07-21] MEDS ORDERED: IV FLUID CONTINUATION 1,000 ML IV ONE (09:05)
--- NOTE | 2018-07-21 09:08 | FL ---
EXAMINATION TYPE: FL guided pain mgmt statistic DATE OF EXAM: 07/21/2018 HISTORY: Flouroscopy time 12 seconds of fluoroscopy provided. IMPRESSION: 1. Fluoroscopy time.
[2018-07-21 09:29] VITALS: BP 170/88; PULSE 77
== END 2018-07-21 09:47 | disposition home or self-care (01) ==
LOC: ORPAIN 08:08
PROVIDERS: ATTEND Hospitalist
DX: M47.816 Spondylosis without myelopathy or radiculopathy, lumbar region (principal)
CPT/HCPCS: 64635; 64636 ×2; J2250; J3010; 99152

== ENCOUNTER → 2018-09-09 | Outpatient (CLI) | payer MEDICARE, OTHER ==
[2018-09-09 13:24] VITALS: BP 152/88; PULSE 72; RESP 16; TEMP 98.8
--- NOTE | 2018-09-09 13:49 | P.PN ---
Subjective Progress Note Date: 09/09/18 This is a 62-year-old gentleman with history of lumbar spondylosis without myelopathy the patient usually gets lumbar medial branch RFA every 6 months .his back pain is very well controlled at this time .he still uses Percocet for his knee pain. He had right knee replacement and he has osteoarthritis in the left knee with recent fluid removal by Dr. Lombardo and steroid injection in the left knee. Today, pt denies new-onset weakness, bowel/bladder incontinence, or any other signs or symptoms of cauda equina syndrome. There are no signs of acute intoxication, and no indications of medication diversion or overuse. In addition to above, 13-point review of systems is also negative for chest pain, shortness of breath, changes in vision, changes in hearing, new onset weakness, abdominal pain, diarrhea, extreme fatigue, malaise, fever, skin changes, homicidal or suicidal ideation, or bowel or bladder incontinence. Vital Signs: Reviewed in EMR Gen: AAOx3, NAD HEENT: PERRLA,hearing grossly normal Pulm: resp unlabored,CTA Heart:S1,S2, No Mur Neck: supple, trachea midline Neuro exam of the lower extremities: Normal muscle strength bilaterally Straight leg raising test: Anupam's test: Range of motion of the lumbar spine: Facet loading test: Tenderness in the paravertebral musculature: No tenderness in the lumbar paravertebral area Neuro: CN II-XII grossly intact, Imaging: Reviewed in EMR/chart Assessment: Lumbar spondylosis without myelopathy Osteoarthritis Opioid dependence however the patient receives his opioids from his primary care physician not from our clinic Plan: 1. Explanation: Opioid and psychological risk scores were reviewed. Diagnoses, prognoses, and multiple treatment options including but not limited to physical therapy, interventional therapies, adjuvant medical therapies, narcotic medication therapies, and surgery were discussed with the patient and all questions were answered to the patient's satisfaction. 2. Opioid agreement: We do not prescribe opioids 3. Counseling: The patient was counseled extensively on SMOKING CESSATION, BODY MASS INDEX, EXERCISE. Specifically, the patient was instructed regarding the importance of smoking cessation, obesity, and exercise in the context of both chronic pain and overall health. 4. Procedures: None at this point 5. Consultations: None 6. Investigations: None 7. Medications: None 8. Disposition: Return to clinic on an as-needed basis 9. Maps were reviewed and were appropriate. Objective - Vital Signs Vital signs: Vital Signs Temp 98.8 F 09/09/18 13:21 Pulse 72 09/09/18 13:21 Resp 16 09/09/18 13:21 BP 152/88 09/09/18 13:21 Pulse Ox 95 09/09/18 13:21 Intake & Output 09/08/18 09/09/18 09/09/18 18:59 06:59 18:59 Weight 111.13 kg
== END | disposition home or self-care (01) ==
LOC: PNWHC3 12:26
PROVIDERS: ATTEND Anesthesiology
DX: M47.816 Spondylosis without myelopathy or radiculopathy, lumbar region (principal); M19.90 Unspecified osteoarthritis, unspecified site; F11.20 Opioid dependence, uncomplicated; Z96.651 Presence of right artificial knee joint
CPT/HCPCS: 99211

== ENCOUNTER → 2019-04-22 | Outpatient (CLI) | payer MEDICARE, OTHER ==
[2019-04-22 13:14] VITALS: BP 145/83; PULSE 65; RESP 16
--- NOTE | 2019-04-22 13:45 | P.PAINPG ---
Subjective Progress Note Date: 04/22/19 This is follow-up visit for this patient with a history of severe and chronic low back pain secondary to lumbar degenerative disc diseases , lumbar spondylosis with facet arthropathy, We have done interventional pain procedures radiofrequency ablation of the medial branch lumbar area , he had excellent pain relief after the radiofrequency,. If lasted more than 6 months, Patients currently on complaining of severe axial low back pain , he used pain medication Percocet 10/325 every 6 hours and naproxen 500 mg twice a day and Soma 350 3 times a day Patient denies any side effects of the medication, denies excessive drowsiness or sleepiness, denies suicidal ideation, and reports that the current pain medication is helping to control the pain ,and improve activity of daily living and he is getting prescription refills from his primary care Patient denies any motor or sensory deficit , patient denies any fever or night sweats, denies any change in the bowel movements or urination Objective - Vital Signs Vital signs: Vital Signs Temp Pulse 65 04/22/19 13:06 Resp 16 04/22/19 13:06 BP 145/83 04/22/19 13:06 Pulse Ox 99 04/22/19 13:06 - Exam Physical Examinations : -Constitutiona : Cooperative , not in acute distress . -HEENT : nech : supple , no Lymphadenopathy , normal thyroid size . : eyes : no ptosis , no icterus, no photophobia . - neurologic : Cranial nerve II to XII intact , no focal neurological deffecit . -psychatric : alert , oriented X 3 , appropriate affect , intact judgment and insight . -Lymphatic : no Lymphadenopathy . - musculoskeltal : Lumber spine moter stegnth lower extremities ,thigh and legs 5/5 Right side , 5/5 Left side deep tendon reflexes : normal Knee Jerk , normal ankle Jerk lumber facet Loading Test =positive Right , positive Left Range of motion of the lumbar spine Flexion 30 degrees, extension 10 degrees strait leg raising test = positive at 45 degree Fabere test= positive Right , and positive LT . tenderness over the Sacroiliac joint on the Right , and Left sides Assessment and Plan Plan: Assessment and plan= chronic severe low back pain secondary to lumbar spondylosis with lumbar facet arthropathy he had excellent pain relief after RFA of the medial branch lumbar area, He will be good candidate to have a repeat RFA of the medial branch L3, L4, L5 . Patient will continue to use his pain medication Percocet 10/325 every 8 hours when necessary, naproxen 500 twice daily PRN , as prescribed by his primary care Time with Patient: Less than 30 PQRS Measure Charge Sheet Measure #130: Documentation of Current Meds in Medical Chart: Patient's medications documented in chart Measure #226: Tobacco Use: Screen & Cessation Intervention: Pt not a tobacco user Measure #111: Pneumonia Vaccination: Pneumococcal vaccine administered or previously received Measure #47: Advance Care Plan: Advance care planning discussed & documented, pt chose/unable to give Measure #412: Opioid Treatment Agreement: No documentation of signed opioid treatment agreement Measure #408: Opioid Therapy Follow-up Evaluation: Patient had NO f/u eval minimum every 3 months during opioid therapy Measure #317: Preventitive Care & Scrn High Bld Press & F/U: Pre-hypertensive or hypertensive BP documented, pt will f/u with PCP Measure #128: Body Mass Index (BMI) Screening & Follow-up: BMI documented ABOVE normal parameters - f/u documented Measure #131: Pain Assessment & Follow-up: Pain positive & plan documented, Follow-up scheduled Measure #431: Unhealthy Alcohol Use Preventative Care & Scrn: Patient not identified as an unhealthy alcohol user PQRS Narrative: Smoking Status Never smoker Blood Pressure 145/83 Pain Intensity [Back] 9 Scale Used Numeric (1 - 10) Hx Alcohol Use (MH) Yes: OCCASIONAL. Home Medications: Ambulatory Orders Zolpidem Tartrate [Ambien] 10 mg PO HS 02/17/14 oxyCODONE-APAP 10-325MG [Percocet 10-325] 1 tab PO TID PRN 05/31/14 Ferrous Sulfate [Iron (65 MG Elemental)] 325 mg PO DAILY 06/02/15 Tamsulosin HCl [Flomax] 0.4 mg PO BID 06/02/15 Carisoprodol [Soma] 350 mg PO TID PRN 07/04/16 Cyanocobalamin (Vitamin B-12) [Vitamin B-12] 1,000 mcg PO DAILY 10/14/16 Multivitamin [Men's Multi-Vitamin] 1 tab PO DAILY 10/14/16 Naproxen 500 mg PO BID #20 tablet 11/10/17 Phentermine HCl [Adipex P] 10 mg PO [id number]-[id number] 11/10/17 Cetirizine HCl [Zyrtec] 10 mg PO DAILY 01/15/18 Controlled Substance Measures - Controlled Substance Measures Is patient prescribed a controlled substance at discharge?: No
== END | disposition home or self-care (01) ==
LOC: PNWHC3 12:54
PROVIDERS: ATTEND Specialist
DX: G89.29 Other chronic pain (principal); M47.816 Spondylosis without myelopathy or radiculopathy, lumbar region; Z98.890 Other specified postprocedural states; Z79.899 Other long term (current) drug therapy; Z79.891 Long term (current) use of opiate analgesic; Z79.1 Long term (current) use of non-steroidal anti-inflammatories (NSAID)
CPT/HCPCS: 99211

== ENCOUNTER → 2019-04-29 | Outpatient (CLI) | payer MEDICARE, OTHER ==
--- NOTE | 2019-04-29 09:52 | US ---
EXAMINATION TYPE: US abdomen complete DATE OF EXAM: 04/29/2019 COMPARISON: None CLINICAL HISTORY: R10.11 RUQ abdomen pain. Pt states generalized ABD pain EXAM MEASUREMENTS: Liver Length: 16.1 cm Gallbladder Wall: 0.2 cm CBD: 0.3 cm Spleen: 11.0 cm Right Kidney: 11.1 x 4.9 x 5.2 cm Left Kidney: 10.4 x 5.8 x 5.6 cm Pancreas: wnl, tail obscured by overlying bowel gas Liver: wnl Gallbladder: wnl Evidence for sonographic Mac's sign: No CBD: wnl Spleen: Difficult to visualize Right Kidney: No evidence of hydronephrosis, difficult to visualize Left Kidney: No evidence of hydronephrosis, difficult to visualize Upper IVC: wnl Abd Aorta: Ectasia without aneurysm at this time The liver is homogenous. The intrahepatic portion of the IVC and proximal abdominal aorta are within normal limits. There is no evidence of cholelithiasis. Common bile duct is unremarkable. IMPRESSION: Poorly visualized kidneys, spleen, and pancreas due to overlying bowel gas. The liver and gallbladder are unremarkable and the abdominal aorta is ectatic without aneurysmal dilatation at thi s time.
== END | disposition home or self-care (01) ==
LOC: RADUSWWP 08:51
PROVIDERS: ATTEND Family Medicine
DX: I77.811 Abdominal aortic ectasia (principal)
CPT/HCPCS: 76700

== ENCOUNTER → 2019-07-09 | Outpatient (CLI) | payer MEDICARE, OTHER | END | disposition home or self-care (01) | LOC: LABWHC1 10:24 | PROVIDERS: ATTEND Family Medicine | DX: Z11.59 Encounter for screening for other viral diseases (principal) | CPT/HCPCS: 87635 ==

== ENCOUNTER → 2019-07-13 | Day surgery (SDC) | payer MEDICARE, OTHER ==
[~2019-07-13] MED LIST changes: +IOPAMIDOL M200 10 ML VIAL ONE; +LACTATED RINGERS 1,000 ML IV ONE; +MIDAZOLAM 2 MG/2 ML VIAL ONE; -SODIUM CHLORIDE 0.9% 500 ML 500 ML IV SCH; +fentaNYL (PF) 50 MCG/ML 2 ML AMP ONE; +methylPREDNISolone ACETATE 40 MG/ML 1 ML VIAL ONE
[2019-07-13 06:57] VITALS: TEMP 98.1
--- NOTE | 2019-07-13 08:05 | FL ---
EXAMINATION TYPE: FL guided pain mgmt statistic DATE OF EXAM: 07/13/2019 HISTORY: Fluoroscopy time Less than 60 seconds of fluoroscopy provided. IMPRESSION: 1. Fluoroscopy time.
[2019-07-13 08:07] VITALS: RESP 17
[2019-07-13 08:28] VITALS: BP 144/80; PULSE 72
--- NOTE | 2019-07-13 08:41 | P.PCN ---
Date of Procedure: 07/13/19 Procedure(s) Performed: PREOPERATIVE DIAGNOSIS: 1- Lumbar Degenerative Disc Diseases 2-Lumbar spondylosis with Facet arthropathy without myelopathy POSTOPERATIVE DIAGNOSIS: 1-Lumber Degenerative Disc Diseases 2-Lumbar spondylosis with Facet arthropathy without myelopathy PROCEDURE 1. Lumbar epidural steroid injection under fluoroscopic guidance at the L4-5 level using a right paramedian approach 2. Lumbar epidurogram. ANESTHESIA: Local with 1% lidocaine 3 ml, moderate sedation with intravenous Ve rsed and fentanyl, sedation time 10 minutes Fluoroscopy was used for the procedure and images were saved in the radiology portion of the chart. EBL: Minimal PROCEDURE INDICATION: The patient with low back pain and radiculitis symptoms unresponsive to conservative treatment. Fluoroscopy was used to optimize visualization of the needle placement and to maximize safety. PROCEDURE DESCRIPTION / TECHNIQUE: The patient was seen and identified in the preoperative area. Risks, benefits, complications including but not limited to infections ,bleeding ,allergic reaction to the medications ,nerve damage and incomplete pain releif , and alternatives were discussed with the patient. The patient agreed to proceed with the procedure and signed the consent. IV was started, and vital signs were stab le. Patient was taken to the OR and time out was completed. The patient was placed in the prone position on procedure table and a pillow was placed under the abdomen to reduce lumbar lordosis. The lumbosacral area was prepped and draped in the usual sterile fashion. Vitals were closely monitored during the procedure. Conscious sedation was used during the procedure to decrease patients anxiety. Using anterior-posterior fluoroscopy, the L4-5 interlaminar space was identified and the skin over this site was marked and then infiltrated with 1% lidocaine subcutaneously. Subsequently, a 18-gauge 5" Tuohy epidural needle was inserted and advanced toward the epidural space using the loss of resistance technique and guided by AP and lateral/ oblique fluoroscopy. The correct needle position in the epidural space was verified with the injection of 2 mL of the water soluble contrast dye Isovue 200 contrast under live fluoroscopy, observing an excellent epidurogram. Then, after negative aspiration for blood and CSF and in the absence of paresthesias, a 5 ml mixture containing 40 mg of Depo-medrol , 3 ml of preservative free Normal Saline, and 1 ml of preservative free lidocaine 1% solution was injected and a washout epidurogram was seen. Needle was withdrawn intact, skin was cleansed, and bandages were applied. COMPLICATIONS: None DISPOSITION / PLANS: The patient was placed in a supine position and transferred to the recovery area in a stable condition for observation. There was no evidence of lower extremity motor or sensory deficit after the procedure. Patient was discharged from the recovery room after meeting discharge criteria. Home discharge instructions were given to the patient by the staff. The patient will schedule a lumbar radiofrequency ablation in 1 month's time. Of note, the patient was scheduled to have lumbar radiofrequency ablation, however this was denied by insurance company. The patient was then scheduled to have a lumbar epidural steroid injection per Dr. Dean
== END ==
LOC: ORPAIN 06:37
PROVIDERS: ATTEND Anesthesiology
DX: M47.26 Other spondylosis with radiculopathy, lumbar region (principal); M51.16 Intervertebral disc disorders with radiculopathy, lumbar region
CPT/HCPCS: 62323; J2250; J1030; J3010; Q9966; 99152

== ENCOUNTER 2019-08-24 06:35 | Day surgery (SDC) | payer MEDICARE, OTHER ==
[2019-08-18 15:01] VITALS: BMI 34.2
[~2019-08-24 06:35] MED LIST changes: -IOPAMIDOL M200 10 ML VIAL ONE; -LACTATED RINGERS 1,000 ML IV ONE; +LACTATED RINGERS 1,000 ML IV SCH; -MIDAZOLAM 2 MG/2 ML VIAL ONE; -fentaNYL (PF) 50 MCG/ML 2 ML AMP ONE; -methylPREDNISolone ACETATE 40 MG/ML 1 ML VIAL ONE
[2019-08-24 06:50] VITALS: TEMP 98.1
[2019-08-24] MEDS ORDERED: LIDOCAINE 1% (10MG/ML) FOR IV START INTRADERMA ONE (07:05)
[2019-08-24] MEDS ORDERED: methylPREDNISolone ACETATE 40 MG/ML 1 ML VIAL ONE (07:20)
[2019-08-24] MEDS ORDERED: ROPIVACAINE 5MG/ML 20ML VIAL ONE (07:20)
[2019-08-24] MEDS ORDERED: MIDAZOLAM 2 MG/2 ML VIAL ONE (07:20)
[2019-08-24] MEDS ORDERED: fentaNYL (PF) 50 MCG/ML 2 ML AMP ONE (07:20)
--- NOTE | 2019-08-24 07:47 | P.PCN ---
Date of Procedure: 08/24/19 Procedure(s) Performed: PREOPERATIVE DIAGNOSIS: 1-Lumbar Spondylosis with Facet Arthropathy without myelopathy. 2- Lumber degenerative disc disease POSTOPERATIVE DIAGNOSIS: 1- Lumbar Spondylosis with Facet Arthropathy without myelopathy. 2- Lumber degenerative disc disease PROCEDURES : Right Radiofrequency thermocoagulation, L3 , L4 , and L5 medial branch, with fluoroscopic guidance (fluoroscopy images available in the radiology department) ( to denervate the facet joint at Right L4-5 ,and L5-S1 levels ) ANESTHESIA: Moderate sedation with intravenous versed 2 mg and fentaneyl 100 mcg, and local infiltration with Ropivacaine 0.5 % . EBL: Minimal PROCEDURE INDICATION: The patient with low back pain secondary to lumbar facet arthropathy who had more than 50% relief of her pain with previous diagnostic lumbar medial branch block with bupivacaine. PROCEDURE DESCRIPTION / TECHNIQUE: The patient was seen and identified in the preoperative area. Risks, benefits, complications, including but not limited to risk of infection ,bleeding , allergic reactions to the medications and no complete pain releife , and alternatives were discussed with the patient, the patient agreed to proceed with the procedure and signed the consent. IV was started. Vital signs remained stable throughout the procedure. Patient was taken to the OR and time out was completed. The patient was placed in the prone position on the procedure table. The lumber area was prepped and draped in the usual sterile fashion. . Vital signs were closely monitored during the procedure .IV sedation was used during the procedure to decrease patients anxiety. Using AP and then oblique fluoroscopy, the ``eye of the Trevor dog corresponding to the connection between the superior and transverse articular processes of right L3, L4, and L5 were identified, marked, and localized with 1% lidocaine. Subsequently, a 18 [id number] VENOM radiofrequency cannula with a 10-mm active tip was advanced guided by fluoroscopy to each of the``eyes of the Trevor dog at right L3, L4, and L5. Each site then underwent sensory testing at 50 Hz and 0 to 1 volt and motor testing at 2.5 Hz and 0 to 3 volt with local stimulation, but no radicular symptoms down the legs. Thereafter each sites underwent radiofrequency thermocoagulation at 80 degrees celsius for 90 seconds after injecting 0.5 ml of PF Ropivacaine 1ml, then after the thermocoagulation done , 1 ml of the block solution containing Depo-Medrol 40 mg and 3 ml of Ropivacaine 0.5% was injected at the right L3 , L4 , and L5 , levels after negative aspiration of CSF and blood and with no paresthesias. Cannulas were retracted while injecting lidocaine 1% until the needle is out. At the end of the procedure, the skin was cleansed and bandages were applied. COMPLICATIONS: No acute complications. DISPOSITION / PLANS: The patient was placed in a supine position and transferred to the recovery area in a stable condition for observation and was discharged from the recovery room after meeting discharge criteria. Home discharge instructions given to the patient by the staff. The patient was reexamined prior to discharge. The patient will schedule a follow up in the clinic in 2-4 weeks.
[2019-08-24] MEDS ORDERED: IV FLUID CONTINUATION 1,000 ML IV ONE (07:50)
[2019-08-24 08:06] VITALS: BP 133/68; PULSE 51; RESP 16
--- NOTE | 2019-08-24 08:49 | FL ---
EXAMINATION TYPE: FL guided pain mgmt statistic DATE OF EXAM: 08/24/2019 HISTORY: Fluoroscopy time 17 seconds of fluoroscopy provided. IMPRESSION: 1. Fluoroscopy time.
== END 2019-08-24 08:28 | disposition home or self-care (01) ==
LOC: ORPAIN 06:35
PROVIDERS: ATTEND Specialist
DX: M47.816 Spondylosis without myelopathy or radiculopathy, lumbar region (principal); M51.36 Other intervertebral disc degeneration, lumbar region
CPT/HCPCS: 64635; 64636; 99152

== ENCOUNTER 2019-09-23 07:32 | Day surgery (SDC) | payer MEDICARE, OTHER ==
[2019-09-17 12:20] VITALS: BMI 34.2
[2019-09-23 07:46] VITALS: RESP 16; TEMP 97.6
[2019-09-23] MEDS ORDERED: LIDOCAINE 1% (10MG/ML) FOR IV START INTRADERMA ONE (07:53)
[2019-09-23] MEDS ORDERED: MIDAZOLAM 2 MG/2 ML VIAL ONE (08:09)
[2019-09-23] MEDS ORDERED: fentaNYL (PF) 50 MCG/ML 2 ML AMP ONE (08:09)
[2019-09-23] MEDS ORDERED: LIDOCAINE 4% (PF) 5 ML AMP ONE (08:09)
--- NOTE | 2019-09-23 08:37 | P.PCN ---
Date of Procedure: 09/23/19 Description of Procedure: PREOPERATIVE DIAGNOSIS: Lumbar Spondylosis POSTOPERATIVE DIAGNOSIS: Same PROCEDURES: Radiofrequency ablation of the L3, L4, L5 medial branches with fluoroscopic guidance on the left side SURGEON: Dayron Mendiola MD. ANESTHESIA: Lidocaine 1% 5 mL, Moderate sedation with intravenous Versed and fentanyl, sedation time 19min EBL: Minimal Fluoroscopy was used for the procedure and images were saved in the radiology portion of the chart. PROCEDURE INDICATION: The patient with low back pain secondary to lumbar facet arthropathy who had more than 50% relief of pain with previous diagnostic lumbar medial branch block X2. PROCEDURE DESCRIPTION / TECHNIQUE: The patient was seen and identified in the preoperative area. Risks, benefits, complications, including but not limited to risk of infection ,bleeding , allergic reactions to the medications and incomplete pain relief , and alternatives were discussed with the patient, the patient agreed to proceed with the procedure and signed the consent. IV was started. The operative site was marked. Patient was taken to the OR and time out was completed. The patient was placed in the prone position on the procedure table. The lumbar area was prepped and draped in the usual sterile fashion. . Vital signs were closely monitored during the procedure .IV sedation was used during the procedure to decrease patients anxiety. Using AP and then oblique fluoroscopy, the "eye of the Trevor dog" corresponding to the connection between the superior and transverse articular processes of the L4 and L5 as well as the sacral ala were identified, marked, and localized with 1% lidocaine. Subsequently, an 18 gauge 100 radiofrequency cannula with a 10-mm active tip was advanced guided by fluoroscopy to the identified target at each site. Needle positioning was confirmed on AP, oblique and lateral f luoroscopy. Motor testing at 2.5 Hz was done with paraspinal muscle stimulation only, and no radicular symptoms down the legs. Then 1 mL of 4% lidocaine was injected in each site. Radiofrequency thermocoagulation at 80 degrees celsius for 90 seconds was then performed. Cozad were removed. Sterile dressings were applied. COMPLICATIONS: No acute complications. DISPOSITION / PLANS: The patient was placed in a supine position and transferred to the recovery area in a stable condition for observation and was discharged from the recovery room after meeting discharge criteria. Home dischar ge instructions given to the patient by the staff. The patient will follow up in clinic in 8 weeks.
[2019-09-23] MEDS ORDERED: LACTATED RINGERS 1,000 ML IV ONE ×2 (08:42)
[2019-09-23 08:58] VITALS: BP 145/77; PULSE 56
[2019-09-23] MEDS ORDERED: IV FLUID CONTINUATION 1,000 ML IV ONE (09:03)
--- NOTE | 2019-09-23 09:40 | FL ---
EXAMINATION TYPE: FL guided pain mgmt statistic DATE OF EXAM: 09/23/2019 HISTORY: Fluoroscopy time 19 seconds of fluoroscopy provided. IMPRESSION: 1. Fluoroscopy time.
== END 2019-09-23 09:08 | disposition home or self-care (01) ==
LOC: ORPAIN 07:32
PROVIDERS: ATTEND Anesthesiology
DX: M47.816 Spondylosis without myelopathy or radiculopathy, lumbar region (principal)
CPT/HCPCS: 64635; 64636; J2001; J2250; J3010; 99152

== ENCOUNTER → 2019-11-17 | Outpatient (CLI) | payer MEDICARE, OTHER ==
[2019-11-17 10:30] VITALS: BP 152/96; PULSE 59; RESP 14; TEMP 98
--- NOTE | 2019-11-17 10:55 | P.PN ---
Subjective Progress Note Date: 11/17/19 This is follow-up visit for this patient with a history of severe and chronic low back pain secondary to lumbar degenerative disc diseases , lumbar spondylosis with facet arthropathy, Status post radiofrequency ablation of the medial branch lumbar area , he had excellent pain relief after the radiofrequency , he use pain medication Percocet 10/325 every 6 hours and naproxen 500 mg twice a day and Soma 350 3 times a day is getting prescription refills from his primary care Patient denies any side effects of the medication, denies excessive drowsiness or sleepiness, denies suicidal ideation, and reports that the current pain medication is helping to control the pain ,and improve activity of daily living .Patient denies any motor or sensory deficit , patient denies any fever or night sweats, denies any change in the bowel movements or urination Objective - Vital Signs Vital signs: Vital Signs Temp 98.0 F 11/17/19 10:26 Pulse 59 L 11/17/19 10:26 Resp 14 11/17/19 10:26 BP 152/96 11/17/19 10:26 Pulse Ox 99 11/17/19 10:26 Intake & Output 11/16/19 11/17/19 11/17/19 18:59 06:59 18:59 Weight 112.491 kg - Exam -Constitutiona : Cooperative , not in acute distress . -HEENT : nech : supple , no Lymphadenopathy , normal thyroid size . : eyes : no ptosis , no icterus, no photophobia . - neurologic : Cranial nerve II to XII intact , no focal neurological deffecit . -psychatric : alert , oriented X 3 , appropriate affect , intact judgment and insight . -Lymphatic : no Lymphadenopathy . - musculoskeltal : Lumber spine moter stegnth lower extremities ,thigh and legs 5/5 Right side , 5/5 Left side Assessment and Plan Plan: Assessment and plan= chronic severe low back pain secondary to lumbar spondylosis with lumbar facet arthropathy he had excellent pain relief after RFA of the medial branch lumbar area, Time with Patient: Less than 30 PQRS Measure Charge Sheet Measure #130: Documentation of Current Meds in Medical Chart: Patient's medications documented in chart Measure #226: Tobacco Use: Screen & Cessation Intervention: Pt not a tobacco user Measure #111: Pneumonia Vaccination: Pneumococcal vaccine administered or previously received Measure #47: Advance Care Plan: Advance care planning discussed & documented, pt chose/unable to give Measure #412: Opioid Treatment Agreement: No documentation of signed opioid treatment agreement Measure #408: Opioid Therapy Follow-up Evaluation: Patient had NO f/u eval minimum every 3 months during opioid therapy Measure #317: Preventitive Care & Scrn High Bld Press & F/U: Pre-hypertensive or hypertensive BP documented, pt will f/u with PCP Measure #128: Body Mass Index (BMI) Screening & Follow-up: BMI documented ABOVE normal parameters - f/u documented Measure #131: Pain Assessment & Follow-up: Pain positive & plan documented, Follow-up scheduled Measure #431: Unhealthy Alcohol Use Preventative Care & Scrn: Patient not identified as an unhealthy alcohol user Time with Patient: Less than 30
== END | disposition home or self-care (01) ==
LOC: PNWHC3 10:09
PROVIDERS: ATTEND Specialist
DX: M47.816 Spondylosis without myelopathy or radiculopathy, lumbar region (principal); M46.96 Unspecified inflammatory spondylopathy, lumbar region; G89.29 Other chronic pain; Z79.891 Long term (current) use of opiate analgesic
CPT/HCPCS: 99211

== ENCOUNTER → 2020-01-19 | Outpatient (CLI) | payer MEDICARE, OTHER ==
[2020-01-19 14:04] VITALS: BP 150/91; PULSE 62; RESP 18; TEMP 98.1
--- NOTE | 2020-01-19 14:10 | P.PAINPG ---
Subjective Progress Note Date: 01/19/20 This is follow-up visit for this patient with a history of severe and chronic low back pain secondary to lumbar degenerative disc diseases , lumbar spondylosis with facet arthropathy, Status post radiofrequency ablation of the medial branch lumbar area , he had excellent pain relief after the radiofrequency , he use pain medication Percocet 10/325 every 6 hours and naproxen 500 mg twice a day and Soma 350 3 times a day is getting prescription refills from his primary care Overall he feels like the prior refreezing ablations of helped him quite a bit. He would like to schedule another one on his right side. Pain is located in the low back with no radiation to the lower extremities. He also notes knee pain as well. He is interested in hearing more permanent solution for his pain. Patient denies any side effects of the medication, denies excessive drowsiness or sleepiness, denies suicidal ideation, and reports that the current pain medication is helping to control the pain ,and improve activity of daily living .Patient denies any motor or sensory deficit , patient denies any fever or night sweats, denies any change in the bowel movements or urination Objective - Exam -Constitutiona : Cooperative , not in acute distress . -HEENT : nech : supple , no Lymphadenopathy , normal thyroid size . : eyes : no ptosis , no icterus, no photophobia . - neurologic : Cranial nerve II to XII intact , no focal neurological deffecit . -psychatric : alert , oriented X 3 , appropriate affect , intact judgment and insight . -Lymphatic : no Lymphadenopathy . - musculoskeltal : Lumber spine moter stegnth lower extremities ,thigh and legs 5/5 Right side , 5/5 Left side Assessment and Plan Plan: Assessment and plan= chronic severe low back pain secondary to lumbar spondylosis with lumbar facet arthropathy He is an excellent relief of her face in the past. We will schedule him for right-sided ablation at L4-5 and L5-S1 she last had this August. He did ask for more permanent solution for his pain, I did mention that he could as his primary care provider for a referral to a surgeon to look at surgical options. I also did mention that he is on a significant amount of medication and weaning would be a good option for him in the future. Time with Patient: Less than 30 PQRS Measure Charge Sheet Measure #130: Documentation of Current Meds in Medical Chart: Patient's medications documented in chart Measure #226: Tobacco Use: Screen & Cessation Intervention: Pt not a tobacco user Measure #111: Pneumonia Vaccination: Pneumococcal vaccine administered or previously received Measure #47: Advance Care Plan: Advance care planning discussed & documented, pt chose/unable to give Measure #412: Opioid Treatment Agreement: No documentation of signed opioid treatment agreement Measure #408: Opioid Therapy Follow-up Evaluation: Patient had NO f/u eval minimum every 3 months during opioid therapy Measure #317: Preventitive Care & Scrn High Bld Press & F/U: Pre-hypertensive or hypertensive BP documented, pt will f/u with PCP Measure #128: Body Mass Index (BMI) Screening & Follow-up: BMI documented ABOVE normal parameters - f/u documented Measure #131: Pain Assessment & Follow-up: Pain positive & plan documented, Follow-up scheduled Measure #431: Unhealthy Alcohol Use Preventative Care & Scrn: Patient not identified as an unhealthy alcohol user Time with Patient: Less than 30 PQRS Measure Charge Sheet PQRS Narrative: Smoking Status Never smoker Hx Alcohol Use (MH) Yes: OCCASIONAL. Home Medications: Ambulatory Orders Zolpidem Tartrate [Ambien] 10 mg PO HS 02/17/14 oxyCODONE-APAP 10-325MG [Percocet 10-325] 1 tab PO TID PRN 05/31/14 Ferrous Sulfate [Iron (65 MG Elemental)] 325 mg PO DAILY 06/02/15 Tamsulosin HCl [Flomax] 0.4 mg PO BID 06/02/15 carisoprodoL [Soma] 350 mg PO TID PRN 07/04/16 Multivitamin [Men's Multi-Vitamin] 1 tab PO DAILY 10/14/16 Cetirizine HCl [Zyrtec] 10 mg PO BID 01/15/18 Naproxen 500 mg PO DAILY 08/18/19 Controlled Substance Measures - Controlled Substance Measures Is patient prescribed a controlled substance at discharge?: No
== END | disposition home or self-care (01) ==
LOC: PNWHC3 13:47
PROVIDERS: ATTEND Anesthesiology
DX: M47.816 Spondylosis without myelopathy or radiculopathy, lumbar region (principal); G89.29 Other chronic pain; Z79.899 Other long term (current) drug therapy; Z79.891 Long term (current) use of opiate analgesic
CPT/HCPCS: 99211

== ENCOUNTER → 2020-03-13 | Outpatient (CLI) | payer MEDICARE, OTHER ==
[2020-03-13 10:48] LABS: Basophils % (A) 1 %; Eosinophils # (A) 0.2 k/uL (0-0.7); Eosinophils % (A) 3 %; HCT 42.4 % (39.0-53.0); HGB 13.5 gm/dL (13.0-17.5); Hypochromasia Slight; Lymphocytes # (A) 2.4 k/uL (1.0-4.8); Lymphocytes % (A) 43 %; MCH 27.3 pg (25.0-35.0); MCHC 31.7 g/dL (31.0-37.0); MCV 86.1 fL (80.0-100.0); Mean Platelet Volume 8.4; Monocytes # (A) 0.3 k/uL (0-1.0); Monocytes % (A) 6 %; Neutrophils # (A) 2.6 k/uL (1.3-7.7); Neutrophils % (A) 46 %; Platelet Count 151 k/uL (150-450); RBC 4.93 m/uL (4.30-5.90); RDW 15.2 % (11.5-15.5); WBC 5.7 k/uL (3.8-10.6)
[2020-03-13 10:53] LABS: Partial Thromboplastin Time 26.3 sec (22.0-30.0)
[2020-03-13 11:06] LABS: Calcium 8.9 mg/dL (8.4-10.2); Potassium 4.3 mmol/L (3.5-5.1)
[2020-03-13 12:15] LABS: Appearance,Urine Clear (Clear); Bilirubin,Urine Negative (Negative); Blood,Urine Negative (Negative); Color,Urine Yellow; Glucose,Urine (UA) Negative (Negative); Ketones,Urine Negative (Negative); Leukocyte Esterase,Urine Negative (Negative); Nitrite,Urine Negative (Negative); PH, Urine 5.5 (5.0-8.0); Protein,Urine Trace (Negative); Specific Gravity,Urine 1.037 (1.001-1.035); Urobilinogen,Urine <2.0 mg/dL (<2.0)
--- NOTE | 2020-03-13 16:17 | XR ---
EXAMINATION TYPE: XR chest 2V DATE OF EXAM: 03/13/2020 COMPARISON: Chest x-ray dated 04/30/2017 HISTORY: Presurgical testing TECHNIQUE: Frontal and lateral views of the chest are obtained. FINDINGS: There is no focal air space opacity, pleural effusion, or pneumothorax seen. The cardiac silhouette size is within normal limits. The osseous structures are intact, there is thoracic spond ylosis and a spinal curvature. IMPRESSION: No acute cardiopulmonary process. Spinal curvature.
== END | disposition home or self-care (01) ==
LOC: LABPAT 09:52
PROVIDERS: ATTEND Orthopaedic Surgery Orthopaedic Surgery of the Spine
DX: Z01.818 Encounter for other preprocedural examination (principal); M43.10 Spondylolisthesis, site unspecified; Z79.01 Long term (current) use of anticoagulants
CPT/HCPCS: 36415; 71046; 80048; 81003; 85025; 85610; 85730; 87070

== ENCOUNTER → 2020-03-21 | Outpatient (CLI) | payer MEDICARE, OTHER ==
--- NOTE | 2020-03-21 14:31 | XR ---
Left foot history: Trauma and pain 3 views of the left foot There is marked osteoarthritic change of the first metatarsophalangeal joint. There is no fracture or dislocation. Bone mineralization is maintained. No radiopaque foreign body. Some spurring noted at t he talar neck, tibiotalar joint. There is a small plantar calcaneal spur. IMPRESSION: Osteoarthritic changes. Plantar calcaneal spur.
== END | disposition home or self-care (01) ==
LOC: RADXRMAIN 13:28
PROVIDERS: ATTEND Family Medicine
DX: M19.072 Primary osteoarthritis, left ankle and foot (principal); M77.32 Calcaneal spur, left foot

== ENCOUNTER 2020-03-22 06:46 | Observation (INO) | payer MEDICARE, OTHER ==
[2020-03-16 09:56] VITALS: BMI 34.8
[~2020-03-22 06:46] MED LIST changes: +DEXAMETHASONE SOD PHOSPHATE 4 MG/ML 1 ML VIAL IV ONE; -LACTATED RINGERS 1,000 ML IV SCH; +LIDOCAINE 1% (10MG/ML) FOR IV START INTRADERMA PRN; +ONDANSETRON 4 MG/2 ML VIAL IVP ONE; +ceFAZolin 1,000 MG in SODIUM CHLORIDE 0.9% IRRIGATIO 1,000 ML IRRIGATION PRN
[2020-03-22] MEDS ORDERED: LACTATED RINGERS 1,000 ML IV ONE ×3 (07:30→14:23)
[2020-03-22] MEDS ORDERED: PROPOFOL 10 MG/ML 20 ML VIAL IV ONE (07:58)
[2020-03-22] MEDS ORDERED: fentaNYL (PF) 50 MCG/ML 2 ML AMP ONE (07:58)
[2020-03-22] MEDS ORDERED: HYDROmorphone (PF) 1 MG/ML ONE (07:58)
[2020-03-22] MEDS ORDERED: ePHEDrine SULFATE/0.9% NACL/PF 50 MG/5 ML SYRINGE IV ONE (07:58)
[2020-03-22] MEDS ORDERED: MIDAZOLAM 2 MG/2 ML VIAL ONE (07:58)
[2020-03-22] MEDS ORDERED: NEOSTIGMINE 1 MG/ML 10 ML VIAL ONE (07:58)
[2020-03-22] MEDS ORDERED: ceFAZolin 1,000 MG VIAL ONE (07:58)
[2020-03-22] MEDS ORDERED: PHENYLEPHRINE 10 MG/ML VIAL ONE (07:58)
[2020-03-22] MEDS ORDERED: KETAMINE 10 MG/ML 20 ML VIAL ONE (07:58)
[2020-03-22] MEDS ORDERED: SODIUM CHLORIDE 0.9% 100 ML BAG ONE (07:58)
[2020-03-22] MEDS ORDERED: ROCURONIUM 10 MG/ML (10 ML VIAL) IV ONE (07:58)
[2020-03-22] MEDS ORDERED: LIDOCAINE 1% INJ 10MG/ML (20 ML MDV) ONE (07:58)
[2020-03-22] MEDS ORDERED: GLYCOPYRROLATE 0.2 MG/ML 2 ML VIAL ONE (07:58)
[2020-03-22] MEDS ORDERED: THROMBIN (BOVINE) 5,000 UNIT VIAL TOPICAL ONE (09:01)
[2020-03-22] MEDS ORDERED: GELATIN SPONGE,ABSORB (LARGE) 1 EACH SPONGE TOPICAL ONE (09:01)
[2020-03-22] MEDS ORDERED: HYDROmorphone 1 MG/ML 1 ML SYRINGE IVP PRN (12:52)
[2020-03-22] MEDS ORDERED: HYDROmorphone 0.5 MG/0.5 ML SYRINGE IVP PRN (12:52)
[2020-03-22] MEDS ORDERED: ONDANSETRON 4 MG/2 ML VIAL IVP PRN (12:52)
[2020-03-22] MEDS ORDERED: HYDROcodone/APAP 5-325MG 1 EACH TAB PO PRN ×2 (12:52)
[2020-03-22] MEDS ORDERED: BENZOCAINE/MENTHOL LOZENG 1 EACH LOZENGE MUCOUS MEM PRN (12:52)
--- NOTE | 2020-03-22 13:00 | P.OP ---
Date of Procedure: 03/22/20 Preoperative Diagnosis: Spondylolisthesis L3 4 L4 5, severe facet arthrosis L3 4 L4 5, foraminal stenosis L3 4 L4 5 bilaterally, bilateral lower extremity radiculopathy, degenerative disc disease, low back pain Postoperative Diagnosis: Same Anesthesia: GETA Pathology: none sent Condition: stable Disposition: PACU Description of Procedure: DESCRIPTION OF PROCEDURE(S): BRIEF OPERATIVE NOTE Preoperative Diagnosis: Spondylolisthesis L3 4 L4 5, severe facet arthrosis L3 4 L4 5, foraminal stenosis L3 4 L4 5 bilaterally, bilateral lower extremity r adiculopathy, degenerative disc disease, low back pain Postoperative Diagnosis: Same Procedure: Laminectomy and decompression L3 [address] navigation aided Minimally invasive Posterior lateral decompression and facet fusion L3 4 L4 5 Minimally invasive Transforaminal lumbar interbody fusion for a 360 fusion L3 4 L4 5 Discectomy for decompression L3 4 L4 5 Placement of interbody graft L3 4 L4 5 Use of computer navigation for fusion L3 4 and 5 Local autogenous bone grafting Aspiration of bone marrow from the vertebral body pedicle L3 on the right Use of bone graft extenders Surgeon: Dr. Phillip [employer] App[employer] Tech: Mark TO who is present throughout the entire the case persistence during positioning, dissection, exposure, visualization, and all crucial elements of the case as well as closure. Anesthesia: General anesthesia per Estimated blood loss: Approximately 600 mL Complications: None apparent Components implanted: K2M minimally invasive Lemmon pedicle screw system withscrews measuring 6.5 mm in diameter to rods expandable 8-13 mm interbody cages with 10 mL of osteo amp bio4 bone graft substitute and 30 mL of the BX bone fibers to supplement the local autogenous bone graft and bone marrow aspirate Disposition: To recovery room in good stable condition. OPERATIVE INDICATIONS The patient has had severe issues at their lower extremity in his lower back over the past several years with significant worsening over the past several months. Over the past few months the patient had pain at her back and bilateral lower extremity. The patient is having radicular symptoms. The patient is having significant pain in her back. They are unable to obtain any comfort. We did aggressive conservative treatment with medications therapy and interventional pain management however he was not having any relief. The patient also showed evidence of a listhesis with some dynamic instability at L3 4 and L4 5. The patient has been through conservative treatment. We discussed various treatment options including surgery, and the patient wishes to proceed with surgery We discussed the risk, patient's alternatives and benefits of surgery including but not limited to, risk of bleeding risk of infection, risk of need for further surgery, risk of decreased, loss of motion, muscle function, malunion nonunion, hardware failure, nerve damage, paralysis, heart attack, blindness and . They understood issues with the current pandemic and the possibility of exposure. OPERATIVE SUMMARY After discussing all the risks, patient alternatives and benefits at length, the patient elected to proceed with surgical intervention, signed informed consent, and presented for their procedure. The patient was seen and examined in the preoperative holding area and the surgical site was marked. The patient was given antibiotics and brought to the operating room. The patient was sedated and intubated by anesthesia in standard fashion. The patient was positioned on to the operating room table in a prone position on the appropriate frame which was well-padded and well molded. We were careful to pad any bony prominences and pressure points. We were careful to maintain the patient's cervical spine and good neutral alignment and position throughout. The patient was prepped and draped in a normal standard fashion. An appropriate timeout and keystone protocol performed. We were able to proceed with the surgery. The local wound area was infiltrated with local anesthetic. Over the right iliac crest I was able to make small stab incisions and establish a guidepin screw fixation to the iliac crest 2 on the right. I was able place the computer referencing device over the guidepins to establish an appropriate reference point for the Ziem CT navigation. We then were able to place patient in an appropriate drape and do a navigation spin for visualization and 3-D reconstruction of the lumbar spine. I was able utilize C-arm guidance and navigation to establish appropriate position over the pedicles bilaterally at the appropriate levels at L3 4 and 5 . With the appropriate levels confirmed was able to make small stab incisions over the appropriate pedicle sites bilaterally. Utilizing the computer navigation device I was able to establish bony landmarks at the right iliac crest for a bony reference point for the navigation device. I was able to establish a Jamshidi needle over the lateral aspect of the pedicle and advanced the trocar into the pedicle being careful not to breech superiorly inferiorly medially or laterally using computer navigation device. Position was confirmed regularly with AP and lateral images on C-arm and with the computer navigation device at the appropriate levels bilaterally at L3 4 and 5. I was able to establish the trocar into the pedicle appropriately into the posterior aspect of the vertebral body bilaterally at the appropriate levels. This was done at each of the pedicle positions and each of the vertebrae. At the superior vertebrae of L3 I was able to take approximately 25 mL of bone aspiration for use later in the case to supplement the allograft and autograft bone. I was able place the guidewire into the trocar and into the vertebral body appropriately under C-arm guidance. Dissection was taken down over the wire to the appropriate starting position for the screw placed. The appropriate length screw was chosen, threaded over the guidewire and screwed appropriately into the pedicle and vertebral body under C-arm guidance in excellent alignment and position with good bony purchase. This is done at each of the screw sites at the appropriate levels at L3 4 and 5.. With the screws intact I extended the incision to connect the screw hole sites on the most symptomatic side on the left. I dissected down to establish access over the pars and lamina to the base of the spinous process. I was able to expose the facet joint. The capsule the facet was taken down and showed some facet arthrosis at the joint. I was able to use a combination of curettes and Kerrison rongeurs and a high-speed drill to take down the facet joint and do a facetectomy. I was able get excellent foraminal decompression and central decompression with undermining across midline to perform a laminectomy centrally and contralaterally. As able get good central decompression. The ligamentum flavum was taken down to further decompress centrally and at bilateral neural foramen. I was able to expose the disc space and visualize the traversing nerve root. Note was made of some disc protrusion and disc herniation that was abutting the traversing nerve root at the level causing further compression of the nerve root. I was able to establish a annulotomy at the appropriate level protecting soft tissue and neural structures. Note was made of some disc desiccation at the disc. I performed a complete discectomy with accommodation of curettes and rasps and scrapers. I was able get good endplate preparation at the disc space. I sized for the appropriate size interbody spacer protecting the soft tissue and neural structures. The wound was copiously irrigated and suctioned dry. There is no evidence of any dural tear or leak. I was able to pack the disc space with local autogenous bone graft as well as a small amount of bone graft which was also placed into the interbody cage itself. Protecting the soft tissue structures and neural structures I was able place the interbody cage in good alignment and good position with good fit and fill at the interbody space. Position was confirmed with C-arm guidance. Good hemostasis maintained. There is no evidence of any dural tear or leak. The wound was irrigated and suctioned dry. With the hardware intact, intraoperative C-arm imaging was again taken which showed good alignment and position of the hardware at the appropriate levels at L3 4 and 5. We were then able to measure, contour and place the rods and appropriate hardware bilaterally. I was able to place capcrews, tighten them down, and torque them with the torque screwdriver appropriately. With this intact I was able to place the local autogenous bone graft with additional bone graft enhancer as necessary into the posterior lateral gutters over the decorticated transverse processes and facet joints on the contralateral side. The remainder of the bone graft was placed over the facet joint on the contralateral side after taking down the facet joint capsule. With the bone graft intact, a stable construct, and good decompression at the appropriate levels, we were able to proceed with closure. Good hemostasis was maintained. There is no evidence of dural tear or leak. The fascia was closed for a watertight closure. he subcuticular tissue was closed with absorbable suture. The wound was cleaned and dried and dressed with the appropriate dressing. The drapes were broken down. The patient was gently rolled back onto their hospital bed being careful to maintain their cervical spine and good neutral alignment and position. They were woken up by anesthesia, extubated, and brought to the recovery room in good stable condition. The patient will be admitted to the hospital for appropriate postoperative care, medical management and monitoring. We will continue to follow them closely about the postoperative course.
[2020-03-22] MEDS: HYDROmorphone 1 MG/ML 1 ML SYRINGE IVP ONE ×4 (13:16→13:36)
[2020-03-22] MEDS ORDERED: diphenhydrAMINE 50 MG/ML 1 ML VIAL IVP ONE (13:23)
--- NOTE | 2020-03-22 13:54 | XR ---
Mid lumbar spine HISTORY: Lumbar fusion 2 intraoperative C-arm images document the procedure
--- NOTE | 2020-03-22 13:54 | FL ---
Fluoroscopy HISTORY: Lumbar fusion 24 seconds fluoroscopy time supplied to the referring clinician. 2 intraoperative C-arm images docum ent the procedure. See dictated report from orthopedic surgery.
[2020-03-22] MEDS ORDERED: fentaNYL (PF) 50 MCG/ML 2 ML AMP IVP ONE ×2 (13:55→14:04)
[2020-03-22] MEDS: oxyCODONE-APAP 10-325MG 1 EACH TAB PO PRN ×2 (15:37→23:12)
[2020-03-22] MEDS: SODIUM CHLORIDE 0.9% 1,000 ML IV SCH (15:39)
[2020-03-22] MEDS: LACTATED RINGERS 1,000 ML IV SCH ×2 (16:31→17:57)
[2020-03-22] MEDS: LORATADINE 10 MG TAB PO SCH ×2 (17:21→21:58)
[2020-03-22] MEDS: carisoprodoL 350 MG TAB PO PRN (17:21)
[2020-03-22] MEDS: ZOLPIDEM 5 MG TAB PO SCH (21:57)
[2020-03-23] MEDS: SODIUM CHLORIDE 0.9% 1,000 ML IV SCH ×2 (05:58→17:09)
[2020-03-23] MEDS: TAMSULOSIN 0.4 MG CAP.ER.24H PO SCH (08:02)
[2020-03-23] MEDS: ASPIRIN 81 MG PO SCH (08:02)
[2020-03-23] MEDS: SENNOSIDES-DOCUSATE SODIUM 1 EACH TAB PO SCH (08:02)
[2020-03-23] MEDS: LORATADINE 10 MG TAB PO SCH ×2 (08:02→21:24)
--- NOTE | 2020-03-23 08:02 | P.CONS ---
History of Present Illness - Reason for Consult Consult date: 03/22/20 - Chief Complaint Back pain - History of Present Illness This is a consultation on a 61-year-old black male essentially admitted for back care. The patient is seen postoperatively doing well. No significant fever or chills. No nausea, vomiting or diarrhea is stated. Review of Systems Constitutional: Denies chills, Denies fever Eyes: denies blurred vision, denies pain Ears, nose, mouth and throat: Denies headache, Denies sore throat Cardiovascular: Denies chest pain, Denies shortness of breath Respiratory: Denies cough Musculoskeletal: Denies myalgias Integumentary: Denies pruritus, Denies rash Past Medical History Past Medical History: GERD/Reflux, Hearing Disorder / Deafness, Osteoarthritis (OA), Prostate Disorder Additional Past Medical History / Comment(s): Deaf Rt ear, BACK PAIN, DJD History of Any Multi-Drug Resistant Organisms: MRSA Year Discovered:: 2014 MDRO Source:: nose Past Surgical History: Joint Replacement, Orthopedic Surgery Additional Past Surgical History / Comment(s): RT KNEE AND bang HIP replaced(left hip x2). PAIN PROC, COLLARBONE REPAIRED. Past Anesthesia/Blood Transfusion Reactions: No Reported Reaction Additional Past Anesthesia/Blood Transfusion Reaction / Comm: no hx blood transfusion Smoking Status: Never smoker - Past Family History Father Family Medical History: Congestive Heart Failure (CHF) Brother(s) Family Medical History: Deep Vein Thrombosis (DVT) Medications and Allergies Home Medications Medication Instructions Recorded Confirmed Type Zolpidem Tartrate [Ambien] 10 mg PO HS 02/17/14 03/22/20 History oxyCODONE-APAP 10-325MG [Percocet 1 tab PO TID PRN 05/31/14 03/22/20 History 10-325] Tamsulosin HCl [Flomax] 0.8 mg PO DAILY 06/02/15 03/22/20 History carisoprodoL [Soma] 350 mg PO QID PRN 07/04/16 03/22/20 History Multivitamin [Men's Multi-Vitamin] 1 tab PO DAILY 10/14/16 03/22/20 History Cetirizine HCl [Zyrtec] 10 mg PO BID 01/15/18 03/22/20 History Naproxen 500 mg PO DAILY 08/18/19 03/22/20 History Aspirin [Adult Low Dose Aspirin EC] 81 mg PO DAILY 03/16/20 03/22/20 History Dutasteride [Avodart] 0.5 mg PO DAILY 03/16/20 03/22/20 History Iron Tab 27 mg PO DAILY 03/16/20 03/22/20 History Pantoprazole Sodium [Protonix] 40 mg PO QAM 03/16/20 03/22/20 History Allergies Allergy/AdvReac Type Severity Reaction Status Date / Time No Known Allergies Allergy Verified 03/22/20 07:21 Physical Exam Vitals: Vital Signs Temp Pulse Pulse Pulse Resp BP Pulse Ox 03/22/20 17:00 81 18 147/84 100 03/22/20 16:00 76 18 147/83 100 03/22/20 15:30 70 18 132/89 98 03/22/20 14:58 97.5 F L 76 20 125/81 98 03/22/20 14:31 80 16 138/59 100 03/22/20 14:17 79 16 146/65 98 03/22/20 14:01 73 16 120/67 100 03/22/20 13:46 70 16 142/93 100 03/22/20 13:30 66 16 124/61 100 03/22/20 13:15 64 16 126/62 100 03/22/20 13:03 97.3 F L 65 18 110/69 100 03/22/20 07:25 97.9 F 74 16 153/91 99 Intake and Output 03/22/20 03/22/20 03/22/20 06:59 14:59 22:59 Intake Total 2101.5 Output Total 865 Balance 1236.5 Intake: IV 2101.5 Output: Urine 265 Estimated Blood Loss 600 Other: # Voids 1 Weight 123 kg 123 kg - Constitutional General appearance: no acute distress - EENT Eyes: EOMI - Neck Neck: no lymphadenopathy - Respiratory Respiratory: bilateral: CTA - Cardiovascular Rhythm: regular Heart sounds: normal: S1, S2 Abnormal Heart Sounds: no S3 Gallop - Gastrointestinal General gastrointestinal: soft, no tenderness - Integumentary Integumentary: no cellulitis Assessment and Plan (1) DDD (degenerative disc disease), lumbar Current Visit: Yes Status: Acute Code(s): M51.36 - OTHER INTERVERTEBRAL DISC DEGENERATION, LUMBAR REGION SNOMED Code(s): 49195933 (2) Opiate dependence Current Visit: Yes Status: Acute Code(s): F11.20 - OPIOID DEPENDENCE, UNCOMPLICATED SNOMED Code(s): 24856314 (3) BPH (benign prostatic hyperplasia) Current Visit: Yes Status: Acute Code(s): N40.0 - BENIGN PROSTATIC HYPERPLASIA WITHOUT LOWER URINRY TRACT SYMP SNOMED Code(s): 424249648 Plan: Reconcile home medications. Appropriate pulmonary toilet and GI prophylaxis with DVT prophylaxis per surgery. We'll continue to follow from a medical perspective per See orders otherwise.
[2020-03-23] MEDS: FINASTERIDE 5 MG TAB PO SCH (08:03)
[2020-03-23] MEDS: FERROUS SULFATE 325 MG TAB PO SCH (08:03)
[2020-03-23] MEDS: MULTIVITAMINS, THERA 1 EACH TAB PO SCH (08:03)
[2020-03-23] MEDS: oxyCODONE-APAP 10-325MG 1 EACH TAB PO PRN ×2 (08:03→15:04)
[2020-03-23] MEDS: PANTOPRAZOLE 40 MG TABLET PO SCH (08:03)
--- NOTE | 2020-03-23 08:55 | P.PN ---
Progress Note - Text Progress Note Date: 03/23/20 Postoperative day #1 Patient is seen and examined today at bedside. The patient has some pain around the surgical site as expected. Pain is being controlled with medication. He feels that his bilateral lower extremities are somewhat numb feeling from his hips all the way to his ankles. He does not feel particularly weak but the sensation is altered bilaterally. He has not yet been out of bed. He is tolerating his diet and appropriately. Physical Exam Afebrile with stable vital signs Abdomen is soft nontender. Chest has good excursion deep and space expiration The incision site is clean dry and intact. No erythema there is no purulence. Dressing is intact Extremities have appropriate strength with dorsiflexion plantarflexion and EHL. He is able to flex his knees he is able lift his legs up off the bed independently O he has some troubles doing this which is understandable given his surgery. His thighs and calves soft nontender. His sensations intact throughout his bilateral lower extremities. He denies any changes in his bowel function. He has a Baxter intact. Calves and thighs were soft nontender without evidence of DVT. Assessment/Plan Postoperative day #1 status post minimally invasive decompression fusion L3 4 L4 5 for spondylolisthesis with stenosis and facet arthrosis Patient is progressing as expected from the surgery. His strength in his lower extremities is still stable without any obvious loss of strength. His numbness may be some reaction given his decompression, and I think we can continue to follow and monitor this for now. We will continue to increase the patient's mobilization with therapy. He will get up out of bed today with physical therapy. He has some history of difficulty urinating after prior surgeries and had to have his catheter reinserted on previous admission. We can leave his Baxter until this afternoon to allow appropriate bowel rest and some mobilization. We will have to monitor this closely. We will continue pain control with oral or IV medications. We'll continue to follow patient closely.
[2020-03-23 13:02] LABS: Basophils # (A) 0.02 X 10*3/uL (0.00-0.10); Basophils % (A) 0.2 %; Eosinophils # (A) 0.01 X 10*3/uL (0.04-0.35); Eosinophils % (A) 0.1 %; HCT 35.6 % (39.6-50.0); HGB 11.1 g/dL (13.0-17.0); Lymphocytes # (A) 1.38 X 10*3/uL (0.90-5.00); Lymphocytes % (A) 12.7 %; MCHC 31.2 g/dL (32.0-37.0); MCV 86.6 fL (80.0-97.0); Mean Platelet Volume 12.1 fL (9.5-12.2); Monocytes # (A) 1.16 X 10*3/uL (0.20-1.00); Monocytes % (A) 10.7 %; Neutrophils # (A) 8.18 X 10*3/uL (1.80-7.70); Neutrophils % (A) 75.2 %; Platelet Count 129 X 10*3/uL (140-440); RBC 4.11 X 10*6/uL (4.40-5.60); RDW 15.9 % (11.5-14.5); WBC 10.87 X 10*3/uL (4.50-10.00)
[2020-03-23 13:11] LABS: African American GFR (CKD) 56.6 (60.0-200.0); Calcium 8.2 mg/dL (8.7-10.3); Non-African American GFR(CKD) 48.8 (60.0-200.0); Potassium 4.3 mmol/L (3.5-5.5)
[2020-03-23] MEDS: carisoprodoL 350 MG TAB PO PRN (15:04)
[2020-03-23] MEDS: ZOLPIDEM 5 MG TAB PO SCH (21:24)
[2020-03-24] MEDS: LACTATED RINGERS 1,000 ML IV SCH ×2 (03:11→17:25)
[2020-03-24] MEDS: oxyCODONE-APAP 10-325MG 1 EACH TAB PO PRN ×3 (04:36→20:12)
[2020-03-24] MEDS: SODIUM CHLORIDE 0.9% 1,000 ML IV SCH ×2 (06:14→20:13)
[2020-03-24] MEDS: TAMSULOSIN 0.4 MG CAP.ER.24H PO SCH (07:58)
[2020-03-24] MEDS: PANTOPRAZOLE 40 MG TABLET PO SCH (07:59)
[2020-03-24] MEDS: LORATADINE 10 MG TAB PO SCH ×2 (07:59→20:12)
[2020-03-24] MEDS: ASPIRIN 81 MG PO SCH (07:59)
[2020-03-24] MEDS: FERROUS SULFATE 325 MG TAB PO SCH (07:59)
[2020-03-24] MEDS: SENNOSIDES-DOCUSATE SODIUM 1 EACH TAB PO SCH (07:59)
[2020-03-24] MEDS: FINASTERIDE 5 MG TAB PO SCH (07:59)
[2020-03-24] MEDS: MULTIVITAMINS, THERA 1 EACH TAB PO SCH (07:59)
--- NOTE | 2020-03-24 09:09 | P.DS ---
Providers Date of admission: 03/22/2020 Attending physician: Charles Phillip Consults: 03/22/20 12:52 Consult Physician Routine Consulting Provider: Shaun Wang Consult Reason/Comments: Medical management Do you want consulting provider notified?: Yes Primary care physician: Shaun Wang - Discharge Diagnosis(es) (1) Spondylolisthesis, lumbar region Current Visit: Yes Status: Acute (2) Lumbar facet arthropathy Current Visit: Yes Status: Acute (3) Lumbar foraminal stenosis Current Visit: Yes Status: Acute (4) Low back pain Current Visit: Yes Status: Acute (5) Radiculopathy with lower extremity symptoms Current Visit: Yes Status: Acute (6) Prostate disorder Current Visit: Yes Status: Acute (7) Hearing disorder Current Visit: Yes Status: Acute (8) DDD (degenerative disc disease), lumbar Current Visit: Yes Status: Acute (9) Obesity (BMI 30-39.9) Current Visit: No Status: Acute Hospital Course: This is a pleasant 64-year-old male who presented with L3-4 and L4-5 spondylolisthesis, severe disc facet arthrosis, and foraminal stenosis with lower extremity radiculopathy, low back pain, and degenerative disc disease who failed outpatient conservative therapy. He was admitted for an L3-4 and L4-5 minimally invasive posterior lateral decompression and fusion with transforaminal lumbar interbody fusion. The patient tolerated the procedure well and did well postoperatively. His Baxter catheter has been discontinued this morning. We did discuss he needs to be old avoid prior to discharge home. He feels his leg strength has improved today. His back pain is well-controlled. He is not taking any IV narcotic pain medication. He has been able to ambulate postoperatively. He feels he is ready for discharge home today and would like to be discharged today Condition on day of discharge stable. Patient will be discharged home. Patient was cleared preoperatively for surgery by Dr. Wang. Patient currently denies any nausea, vomiting, fever, or chills. Patient is eating without difficulty. Patient may shower Optifoam dressing intact. Patient may remove Optifoam dressing in 3 days and shower without a dressing at that time. Patient should refrain from driving until at least after their first follow-up appointment in the office. Patient should avoid excessive bending, lifting, and twisting; no lifting greater than 10 pounds. Patient takes Percocet 10 mg/325 mg for pain control an outpatient setting. He may continue take this medication as previously prescribed. He states he has enough of this medication. He may continue with his other previously prescribed home medications as prescribed as needed. Patient's other medical diagnoses include hearing disorder and prostate disorder. Physical Exam on day of discharge: Patient is awake, alert, and oriented 3 Vital signs stable Good chest excursion with deep inspiration and expiration Abdomen soft nontender No signs or symptoms of DVT; no calf pain Extensor hallucis longus, plantarflexion, and dorsiflexion positive sustained bilateral lower extremities Incision sites are clean, dry, and intact; no erythema, purulence, or signs of infection Optifoam dressings intact Procedures: L3-4 and L4-5 minimally invasive posterior lateral decompression fusion with transforaminal lumbar interbody fusion Patient Condition at Discharge: Stable Plan - Discharge Summary Discharge Rx Participant: Yes New Discharge Prescriptions: No Action Zolpidem Tartrate [Ambien] 10 mg PO HS oxyCODONE-APAP 10-325MG [Percocet 10-325] 1 tab PO TID PRN PRN Reason: Pain Tamsulosin HCl [Flomax] 0.8 mg PO DAILY carisoprodoL [Soma] 350 mg PO QID PRN PRN Reason: Pain Multivitamin [Men's Multi-Vitamin] 1 tab PO DAILY Cetirizine HCl [Zyrtec] 10 mg PO BID Naproxen 500 mg PO DAILY Dutasteride [Avodart] 0.5 mg PO DAILY Pantoprazole Sodium [Protonix] 40 mg PO QAM Iron Tab 27 mg PO DAILY Aspirin [Adult Low Dose Aspirin EC] 81 mg PO DAILY Discharge Medication List Zolpidem Tartrate [Ambien] 10 mg PO HS 02/17/14 [History] oxyCODONE-APAP 10-325MG [Percocet 10-325] 1 tab PO TID PRN 05/31/14 [History] Tamsulosin HCl [Flomax] 0.8 mg PO DAILY 06/02/15 [History] carisoprodoL [Soma] 350 mg PO QID PRN 07/04/16 [History] Multivitamin [Men's Multi-Vitamin] 1 tab PO DAILY 10/14/16 [History] Cetirizine HCl [Zyrtec] 10 mg PO BID 01/15/18 [History] Naproxen 500 mg PO DAILY 08/18/19 [History] Aspirin [Adult Low Dose Aspirin EC] 81 mg PO DAILY 03/16/20 [History] Dutasteride [Avodart] 0.5 mg PO DAILY 03/16/20 [History] Iron Tab 27 mg PO DAILY 03/16/20 [History] Pantoprazole Sodium [Protonix] 40 mg PO QAM 03/16/20 [History] Follow up Appointment(s)/Referral(s): Charles Phillip DO [Doctor of Osteopathic Medicine] - [address],[place] [NON-STAFF] - As Needed Activity/Diet/Wound Care/Special Instructions: Keep site clean. May shower with waterproof Tegaderm intact. Do not soak in a tub. After 72 hours postoperatively, patient May remove dressing and then may shower with area uncovered. Leave Steri-Strips intact and allow them to fray off on their own. May ambulate as tolerated. Avoid heavy or rigorous activity. No repetitive bending twisting or lifting. No overhead work. Discharge Disposition: HOME SELF-CARE
[2020-03-24] MEDS: carisoprodoL 350 MG TAB PO PRN (09:39)
--- NOTE | 2020-03-24 12:50 | P.PN ---
Subjective Principal diagnosis: Postop day #2 for spondylolisthesis The patient is sitting in a chair comfortably today pain control is nominal. No significant nausea or vomiting. No new voiding difficulties. We are waiting for him to have appropriate urinary output. Objective - Vital Signs Vital signs: Vital Signs Temp 98.4 F 03/24/20 04:48 Pulse 90 03/24/20 04:48 Resp 20 03/24/20 04:48 BP 142/89 03/24/20 04:48 Pulse Ox 92 L 03/24/20 04:48 Intake & Output 03/23/20 03/24/20 03/24/20 18:59 06:59 18:59 Intake Total 950 900 Output Total 550 Balance 950 350 Intake: Intake, IV Titration 650 900 Amount Sodium Chloride 0.9% 1, 650 900 000 ml @ 75 mls/hr IV . [id number] TERRENCE Rx#:[id number] Oral 300 Output: Urine 550 Other: Voiding Method Indwelling Catheter Indwelling Catheter Urinal - Constitutional General appearance: Present: cooperative. Absent: no acute distress - Respiratory Respiratory: bilateral: CTA - Cardiovascular Rhythm: regular Heart sounds: normal: S1, S2 Abnormal Heart Sounds: Absent: S3 Gallop - Gastrointestinal General gastrointestinal: Present: soft. Absent: tenderness - Labs CBC & Chem 7: 03/23/20 07:26 03/23/20 07:26 Labs: Abnormal Lab Results - Last 24 Hours (Table) 03/23/20 03/23/20 Range/Units 07:26 07:26 WBC 10.87 H (4.50-10.00) X 10*3/uL RBC 4.11 L (4.40-5.60) X 10*6/uL Hgb 11.1 L (13.0-17.0) g/dL Hct 35.6 L (39.6-50.0) % MCHC 31.2 L (32.0-37.0) g/dL RDW 15.9 H (11.5-14.5) % Plt Count 129 L (140-440) X 10*3/uL Plt Count Comment DECREASED A Immature Gran # 0.12 H (0.00-0.04) X 10*3/uL Neutrophils # 8.18 H (1.80-7.70) X 10*3/uL Monocytes # 1.16 H (0.20-1.00) X 10*3/uL Eosinophils # 0.01 L (0.04-0.35) X 10*3/uL Est GFR (CKD-EPI)AfAm 56.6 L (60.0-200.0) Est GFR (CKD-EPI)NonAf 48.8 L (60.0-200.0) Glucose 114 H (70-110) mg/dL Calcium 8.2 L (8.7-10.3) mg/dL Assessment and Plan (1) DDD (degenerative disc disease), lumbar Current Visit: Yes Status: Acute Code(s): M51.36 - OTHER INTERVERTEBRAL DISC DEGENERATION, LUMBAR REGION SNOMED Code(s): 76088496 (2) Opiate dependence Current Visit: Yes Status: Acute Code(s): F11.20 - OPIOID DEPENDENCE, UNCOMPLICATED SNOMED Code(s): 49528538 (3) BPH (benign prostatic hyperplasia) Current Visit: Yes Status: Acute Code(s): N40.0 - BENIGN PROSTATIC HYPERPLASIA WITHOUT LOWER URINRY TRACT SYMP SNOMED Code(s): 010975254 Plan: I anticipate discharge later today. The patient seems to be tolerant diet and once voids appropriately we will follow up with him in about 1 week.
[2020-03-24] MEDS: ZOLPIDEM 5 MG TAB PO SCH (20:12)
[2020-03-25 02:47] VITALS: RESP 16
[2020-03-25] MEDS: oxyCODONE-APAP 10-325MG 1 EACH TAB PO PRN ×2 (04:08→13:28)
[2020-03-25 06:04] VITALS: BP 103/62; PULSE 85; TEMP 98.8
[2020-03-25] MEDS: TAMSULOSIN 0.4 MG CAP.ER.24H PO SCH (09:05)
[2020-03-25] MEDS: ASPIRIN 81 MG PO SCH (09:05)
[2020-03-25] MEDS: FINASTERIDE 5 MG TAB PO SCH (09:05)
[2020-03-25] MEDS: LORATADINE 10 MG TAB PO SCH (09:05)
[2020-03-25] MEDS: FERROUS SULFATE 325 MG TAB PO SCH (09:05)
[2020-03-25] MEDS: SENNOSIDES-DOCUSATE SODIUM 1 EACH TAB PO SCH (09:05)
[2020-03-25] MEDS: PANTOPRAZOLE 40 MG TABLET PO SCH (09:06)
[2020-03-25] MEDS: MULTIVITAMINS, THERA 1 EACH TAB PO SCH (09:06)
--- NOTE | 2020-03-25 09:46 | P.PN ---
Progress Note - Text Progress Note Date: 03/25/20 Postoperative day #3 Patient is seen and examined today at bedside. The patient has some pain around the surgical site as expected. Pain is being controlled with medication. He feels he is moving his legs better and the numbness is resolving and his legs. The patient still not been able to void on his own. He has had to get straight catheterize 3 times since removing his Baxter as he has been unable to urinate despite his efforts. He is taking Flomax 0.8. He states he is interested in trying to go home he even with a catheter intact and Physical Exam Afebrile with stable vital signs Abdomen is soft nontender. No significant distention Chest has good excursion deep and space expiration The incision site is clean dry and intact. No erythema there is no purulence. Extremities have not had neurologic change from prior to surgery. He has sustained dorsal flexion plantar flexion and EHL. He is moving his legs better and is lifting his legs up off the bed independently. Calves and thighs were soft nontender without evidence of DVT. Assessment/Plan Postoperative day #3 status post minimally invasive decompression fusion L3 4 L4 5 for spondylolisthesis and spinal stenosis Urinary retention Patient is progressing as expected from the surgery in terms of his lumbar spine . We will continue to increase the patient's mobilization with therapy. He's been able to move his legs and mobilize better. We will continue pain control with oral or IV medications. The patient has not been able to void on his own since removing the Baxter. He has had this: The past with his prior surgeries from his hips and knees but states that he was able to urinate after being straight cathed a couple of times following those procedures. He has not yet been able to urinate on his own. He'll try again this morning. He is asking if he can have a Baxter catheter placed and left in and be discharged with a catheter intact. I would not be opposed to this as long as he is on a prophylactic antibiotic. We will discuss this further with medicine and arrange for appropriate follow-up if he is able to go home with a Baxter catheter intact. He is not sure if he has seen neurology [facility] he feels he may have seen someone years ago but I do not see the chart. If the patient is not able to be discharged home today then We'll continue to follow patient closely.
[2020-03-25] MEDS: SODIUM CHLORIDE 0.9% 1,000 ML IV SCH (09:47)
--- NOTE | 2020-03-25 13:43 | P.GSCN ---
History of Present Illness Consult date: 03/25/20 Reason for Consult: Urinary retention History of present illness: this is a 64 yo male who is POD #3 S/P decompression fusion L3 4 L4 5 for sp ondylolisthesis and spinal stenosis. Postoperatively patient has developed urinary retention. He's has required straight cath 4. Denies any significant urinary problems at baseline with medical therapy , He is on Flomax 0.4 mg daily and Avodart. He indicates he has history of recurrent urinary retention. Developed urinary retention following his hip replacement. Denies any history or gross hematuria. No previous surgery. He has history of prostate cancer in his uncle. Review of Systems - Constitutional Denies fever, Denies weight loss - Respiratory Denies cough, Denies 7 - Gastrointestinal Reports as per HPI - Genitourinary Reports urinary retention - Integumentary Denies rash, Denies unusual bruising - Neurological Denies headaches, Denies syncope Past Medical History Past Medical History: GERD/Reflux, Hearing Disorder / Deafness, Osteoarthritis (OA), Prostate Disorder Additional Past Medical History / Comment(s): Deaf Rt ear, BACK PAIN, DJD History of Any Multi-Drug Resistant Organisms: MRSA Year Discovered:: 2014 MDRO Source:: nose Past Surgical History: Joint Replacement, Orthopedic Surgery Additional Past Surgical History / Comment(s): RT KNEE AND bang HIP replaced(left hip x2). PAIN PROC, COLLARBONE REPAIRED. Past Anesthesia/Blood Transfusion Reactions: No Reported Reaction Additional Past Anesthesia/Blood Transfusion Reaction / Comm: no hx blood transfusion Smoking Status: Never smoker - Past Family History Father Family Medical History: Congestive Heart Failure (CHF) Brother(s) Family Medical History: Deep Vein Thrombosis (DVT) Medications and Allergies Home Medications Medication Instructions Recorded Confirmed Type Zolpidem Tartrate [Ambien] 10 mg PO HS 02/17/14 03/22/20 History oxyCODONE-APAP 10-325MG [Percocet 1 tab PO TID PRN 05/31/14 03/22/20 History 10-325 mg] carisoprodoL [Soma] 350 mg PO QID PRN 07/04/16 03/22/20 History Multivitamin [Men's Multi-Vitamin] 1 tab PO DAILY 10/14/16 03/22/20 History Cetirizine HCl [Zyrtec] 10 mg PO BID 01/15/18 03/22/20 History Naproxen 500 mg PO DAILY 08/18/19 03/22/20 History Aspirin [Adult Low Dose Aspirin EC] 81 mg PO DAILY 03/16/20 03/22/20 History Dutasteride [Avodart] 0.5 mg PO DAILY 03/16/20 03/22/20 History Iron Tab 27 mg PO DAILY 03/16/20 03/22/20 History Pantoprazole Sodium [Protonix] 40 mg PO QAM 03/16/20 03/22/20 History Cephalexin [Keflex] 500 mg PO Q6HR 3 Days #12 cap 03/25/20 Rx Tamsulosin [Flomax] 0.8 mg PO BID #60 cap.er.24h 03/25/20 Rx Allergies Allergy/AdvReac Type Severity Reaction Status Date / Time No Known Allergies Allergy Verified 03/22/20 07:21 Surgical - Exam Vital Signs Temp Pulse Resp BP Pulse Ox 97.9 F 74 16 153/91 99 03/22/20 07:25 03/22/20 07:25 03/22/20 07:25 03/22/20 07:25 03/22/20 07:25 - General well developed, well nourished, no distress, no pain - Eyes PERRL, normal ocular movement - ENT normal nares, normal mucosa - Respiratory normal expansion, normal respiratory effort - Abdomen Abdomen: soft, non tender - Genitourinary Baxter draining clear yellow urine - Neurologic no combative, no confused, no memory loss - Psychiatric oriented to time, oriented to person, oriented to place, speech is normal Results - Labs 03/23/20 07:26 03/23/20 07:26 Assessment and Plan Assessment: 64-year-old male POD #3 S/P decompression fusion L3 4 L4 5 for spondylolisthesis and spinal stenosis. Has hx of recurrent urinary retention. On flomax 0.4 mg daily and Avodart Plan: -Agree with increasing flomax to 0.8 mg, Can continue Avodart -F/u in one week For TOV. Discussed with him given his history of recurrent urinary retention he might require surgical intervention for his BPH in the future
--- NOTE | 2020-03-25 14:37 | PN ---
PROGRESS NOTE DATE OF SERVICE: 03/25/2020 I am covering for Dr. Wang. This is a 64-year-old gentleman who was admitted after decompression fusion at L3-4, L4- 5, also had some urinary difficulties. The patient had a catheter placed. No chest pain. No palpitations. No fever. The patient is on Avodart at this time. PHYSICAL EXAMINATION: GENERAL: Patient is alert and oriented times three. VITAL SIGNS: Pulse 76, blood pressure 103/60, respirations 16, temperature 98.2, pulse ox 97% on room air HEENT: Conjunctivae normal. Oral mucosa moist. NECK: No jugular venous distention. No carotid bruits. No lymph node enlargement. RESPIRATORY: Breath sounds diminished at the bases. No rhonchi, no crackles. HEART: S1 and S2, muffled. ABDOMEN: Soft, no tenderness. EXTREMITIES: No edema, no swelling. NERVOUS: No focal deficits. LABS: WBC 10.8, hemoglobin 11.1, platelets are 129. Other labs are noted. ASSESSMENT: 1. Status post decompression fusion of L3, L4, L5. 2. Urinary retention. 3. Increased WBC. 4. Mild anemia. 5. Thrombocytopenia. 6. History of gastroesophageal reflux disease. 7. History degenerative joint disease. 8. History of Methicillin resistant Staphylococcus aureus. 9. FULL CODE. RECOMMENDATIONS AND DISCUSSION: This 64-year-old gentleman presented with multiple medical issues. At this time I recommend to continue current management, resume the home medications and continued with Avodart. Will increase the dose of Flomax. Closely follow. Continue with indwelling Baxter catheter as an outpatient. Follow with Urology as recommended. Follow with Dr. Wang for followup labs and rest of the recommendations per Orthopedic surgery. Further recommendations to follow. MMODL / IJN: [id number] /
== END 2020-03-25 14:58 | disposition home or self-care (01) ==
LOC: OR 06:46 → 5NMEDONC 13:03 → OR 03-25 13:00 → 5NMEDONC 03-25 13:00
PROVIDERS: ADMIT Orthopaedic Surgery Orthopaedic Surgery of the Spine; ATTEND Orthopaedic Surgery Orthopaedic Surgery of the Spine
DX: M43.16 Spondylolisthesis, lumbar region (principal); M48.062 Spinal stenosis, lumbar region with neurogenic claudication; M47.26 Other spondylosis with radiculopathy, lumbar region; M51.16 Intervertebral disc disorders with radiculopathy, lumbar region; K21.9 Gastro-esophageal reflux disease without esophagitis; H91.90 Unspecified hearing loss, unspecified ear; Z79.1 Long term (current) use of non-steroidal anti-inflammatories (NSAID); Z79.891 Long term (current) use of opiate analgesic; Z79.899 Other long term (current) drug therapy; Z96.643 Presence of artificial hip joint, bilateral; Z96.651 Presence of right artificial knee joint; Z97.3 Presence of spectacles and contact lenses
CPT/HCPCS: 22558; 22585; 63047; 63048; 20939; 22853 ×2; 20930; 20937; 97162; 80048; 85025; 72100; C1713; C1762; S0138 ×3; J2250; J1200; J2370; J2710; J0690 ×2; J2405; J2001; J3010; J1170; J2704; 86850; 86900; 86901

== ENCOUNTER 2020-03-29 18:08 | Emergency (ER) | payer MEDICARE, OTHER ==
[2020-03-29 18:19] VITALS: BP 152/93; PULSE 79; RESP 18; TEMP 98.7
[2020-03-29] MEDS ORDERED: MORPHINE SULFATE 4 MG/ML SYRINGE IM STA (19:20)
--- NOTE | 2020-03-29 20:02 | ED ---
General Adult HPI - General Chief complaint: Urogenital Stated complaint: Male Time Seen by Provider: 03/29/20 19:04 Source: patient Mode of arrival: ambulatory Limitations: no limitations - History of Present Illness Initial comments: 63-year-old male patient presents to the emergency department today for evaluation of swelling and pain to the right groin. He is also reporting left calf pain. Patient did have back surgery about a week ago. States his back is starting to feel better he is having no difficulty with the incisions. He has no pain radiating down his legs. States that today he noticed that he has "swelling and lumps" in the right groin region. States it is tender over the area. He did have a Baxter catheter removed yesterday. States he is urinating without difficulty. Denies any fever or chills. Denies history of inguinal hernia. States that the pain in his left calf has been present for the last couple of days. States it hurts to ambulate. He feels the leg is more swollen than usual. He does not take a blood thinning medication. Patient denies any recent rash, cough, shortness of breath, chest pain, abdominal pain, nausea, vomiting, diarrhea, constipation, numbness, tingling, dizziness, weakness, hematuria, dysuria, urinary urgency, urinary frequency, headache, visual changes, or any other complaints. - Related Data Home Medications Medication Instructions Recorded Confirmed Zolpidem Tartrate [Ambien] 10 mg PO HS PRN 02/17/14 03/29/20 oxyCODONE-APAP 10-325MG [Percocet 1 tab PO QID PRN 05/31/14 03/29/20 10-325 mg] carisoprodoL [Soma] 350 mg PO QID PRN 07/04/16 03/29/20 Multivitamin [Men's Multi-Vitamin] 1 tab PO DAILY 10/14/16 03/29/20 Cetirizine HCl [Zyrtec] 10 mg PO BID 01/15/18 03/29/20 Dutasteride [Avodart] 0.5 mg PO DAILY 03/16/20 03/29/20 Iron Tab 27 mg PO DAILY 03/16/20 03/29/20 Pantoprazole Sodium [Protonix] 40 mg PO QAM 03/16/20 03/29/20 Tadalafil [Cialis] 5 mg PO DAILY PRN 03/29/20 03/29/20 Tamsulosin [Flomax] 0.8 mg PO DAILY 03/29/20 03/29/20 Previous Rx's Medication Instructions Recorded Docusate [Colace] 100 mg PO DAILY #30 capsule 03/29/20 Allergies Allergy/AdvReac Type Severity Reaction Status Date / Time No Known Allergies Allergy Verified 03/29/20 19:49 Review of Systems ROS Statement: Those systems with pertinent positive or pertinent negative responses have been documented in the HPI. ROS Other: All systems not noted in ROS Statement are negative. Past Medical History Past Medical History: GERD/Reflux, Hearing Disorder / Deafness, Osteoarthritis (OA), Prostate Disorder Additional Past Medical History / Comment(s): Deaf Rt ear, BACK PAIN, DJD History of Any Multi-Drug Resistant Organisms: MRSA Date of last positivie culture/infection: 2014 MDRO Source:: nose Past Surgical History: Joint Replacement, Orthopedic Surgery Additional Past Surgical History / Comment(s): RT KNEE AND bang HIP replaced(left hip x2). PAIN PROC, COLLARBONE REPAIRED. Past Anesthesia/Blood Transfusion Reactions: No Reported Reaction Additional Past Anesthesia/Blood Transfusion Reaction / Comment(s): no hx blood transfusion Past Psychological History: No Psychological Hx Reported Smoking Status: Never smoker Past Alcohol Use History: None Reported Past Drug Use History: None Reported - Past Family History Father Family Medical History: Congestive Heart Failure (CHF) Brother(s) Family Medical History: Deep Vein Thrombosis (DVT) General Exam Limitations: no limitations General appearance: alert, in no apparent distress, other (This is a well- developed, well-nourished adult male patient in no acute distress. Vital signs upon presentation are temperature 98.7F, pulse 79, respirations 18, blood pressure 152/93, pulse ox 97% on room air.) Eye exam: Present: normal appearance, PERRL, EOMI. Absent: scleral icterus, conjunctival injection, periorbital swelling ENT exam: Present: normal exam, normal oropharynx, mucous membranes moist Respiratory exam: Present: normal lung sounds bilaterally. Absent: respiratory distress, wheezes, rales, rhonchi, stridor Cardiovascular Exam: Present: regular rate, normal rhythm, normal heart sounds. Absent: systolic murmur, diastolic murmur, rubs, gallop, clicks GI/Abdominal exam: Present: soft, normal bowel sounds. Absent: distended, tenderness, guarding, rebound, rigid exam: Present: other (There is soft tissue swelling and firmness noted to the right inguinal region. No lymph node enlargement. No erythema or evidence of abscess) Extremities exam: Present: normal inspection, full ROM, normal capillary refill, calf tenderness (Left). Absent: tenderness, pedal edema, joint swelling Back exam: Present: normal inspection, other (Two vertical incisions in the bilateral paralumbar region are well approximated without drainage, no surrounding erythema or swelling. No surrounding tenderness.) Psychiatric exam: Present: normal affect, normal mood Skin exam: Present: warm, dry, intact, normal color. Absent: rash Course Vital Signs 03/29/20 18:16 Temperature 98.7 F Pulse Rate 79 Respiratory 18 Rate Blood Pressure 152/93 O2 Sat by Pulse 97 Oximetry Medical Decision Making - Medical Decision Making 64 year-old male patient presents to the emergency department for evaluation of pain and swelling to the right groin and pain to his left calf. Patient did have back surgery last week and is recovering well with this. Ultrasound of the left leg was obtained and was negative for DVT. Ultrasound of the right groin was obtained and did show evidence for possible inguinal hernia with recommendations to have CT evaluation. We did draw labs which were unremarkable lactic negative, white blood cell count unremarkable. Perform CT abdomen and pelvis which did show a large right inguinal and right scrotal hernia. I did reevaluate the patient, we were able to reduce the hernia. He did report improvement in symptoms. There is no evidence for bowel obstruction on the CT. He'll be discharged to follow up with general surgery for further evaluation. Return parameters were discussed in detail. He verbalizes understanding and agrees with this plan. Case discussed with my attending Dr. Ferrera. - Lab Data Result diagrams: 03/29/20 21:03 03/29/20 21:03 Lab Results 03/29/20 03/29/20 03/29/20 Range/Units 21:03 21:03 21:16 WBC 9.4 (3.8-10.6) k/uL RBC 3.96 L (4.30-5.90) m/uL Hgb 10.9 L (13.0-17.5) gm/dL Hct 33.9 L (39.0-53.0) % MCV 85.5 (80.0-100.0) fL MCH 27.5 (25.0-35.0) pg MCHC 32.2 (31.0-37.0) g/dL RDW 15.1 (11.5-15.5) % Plt Count 294 (150-450) k/uL MPV 7.7 Neutrophils % 63 % Lymphocytes % 22 % Monocytes % 6 % Eosinophils % 6 % Basophils % 0 % Neutrophils # 5.9 (1.3-7.7) k/uL Lymphocytes # 2.1 (1.0-4.8) k/uL Monocytes # 0.6 (0-1.0) k/uL Eosinophils # 0.6 (0-0.7) k/uL Basophils # 0.0 (0-0.2) k/uL Sodium 142 (137-145) mmol/L Potassium 3.8 (3.5-5.1) mmol/L Chloride 105 (98-107) mmol/L Carbon Dioxide 30 (22-30) mmol/L Anion Gap 7 mmol/L BUN 16 (9-20) mg/dL Creatinine 0.95 (0.66-1.25) mg/dL Est GFR (CKD-EPI)AfAm >90 (>60 ml/min/1.73 sqM) Est GFR (CKD-EPI)NonAf 85 (>60 ml/min/1.73 sqM) Glucose 93 (74-99) mg/dL Plasma Lactic Acid Everette 1.3 (0.7-2.0) mmol/L Calcium 8.6 (8.4-10.2) mg/dL Total Bilirubin 0.5 (0.2-1.3) mg/dL AST 62 H (17-59) U/L ALT 105 H (4-49) U/L Alkaline Phosphatase 156 H (38-126) U/L Total Protein 6.6 (6.3-8.2) g/dL Albumin 3.2 L (3.5-5.0) g/dL - Radiology Data Radiology results: report reviewed, image reviewed CT abdomen and pelvis is obtained. Report is reviewed in its entirety. Impression by Dr. Thurston shows large inguinal scrotal hernia on the right side containing small bowel and minimal fluid. No evidence of a bowel obs truction. Normal appendix. Posterior fusion surgery with laminectomy defect on the left side. Subcutaneous fluid cannulation could relate to seroma or hematoma from the recent surgery. No compression fracture. Not affecting right renal calculus. There is some new mild pleural thickening and atelectasis at the lung bases compared to old exam. Ultrasound of the right groin was obtained. Report was reviewed in its entirety. Impression by Dr. Holloway shows suggestion possible bowel containing right inguinal hernia with surrounding fluid structure. Further evaluation with CTU would be helpful. Mildly prominent right inguinal lymph node seen, likely reactive. Venous Doppler duplex of the left lower extremity was obtained. Report was reviewed in its entirety. Impression by Dr. Holloway shows no evidence for left lower extremity DVT within limitations of the study. Disposition Clinical Impression: Right inguinal hernia Disposition: HOME SELF-CARE Condition: Good Instructions (If sedation given, give patient instructions): Inguinal Hernia (ED) Additional Instructions: Take stool softener as directed. Follow-up with general surgery for further evaluation as soon as possible. Follow up with your primary care physician for recheck in 1-2 days. Return to the emergency department for any new, worsening, or concerning symptoms. Prescriptions: Docusate [Colace] 100 mg PO DAILY #30 capsule Is patient prescribed a controlled substance at d/c from ED?: No Referrals: Shaun Wang MD [Primary Care Provider] - 1-2 days Lizet Steele MD [STAFF PHYSICIAN] - 1-2 days Time of Disposition: 23:01
--- NOTE | 2020-03-29 20:41 | US ---
EXAMINATION TYPE: US venous doppler duplex LE LT DATE OF EXAM: 03/29/2020 8:25 PM COMPARISON: US CLINICAL HISTORY: Left calf pain, recent surgery. Left leg pain x 5 days. Hx back surgery on 03/22/20. No hx of DVT. Patient does not take blood thinners. SIDE PERFORMED: Left TECHNIQUE: The lower extremity deep venous system is examined utilizing real time linear array sonog otoniel with graded compression, doppler sonography and color-flow sonography. VESSELS IMAGED: Common Femoral Vein Deep Femoral Vein Greater Saphenous Vein * Femoral Vein Popliteal Vein Small Saphenous Vein * Proximal Calf Veins (* superficial vessels) Left Leg: No evidence of DVT in veins imaged at this time from prox calf veins to CFV/GSV. Slightly limited evaluation due to edema and patient's pain tolerance. IMPRESSION: No evidence of left lower extremity DVT within the limitations of the study.
--- NOTE | 2020-03-29 20:46 | US ---
EXAMINATION TYPE: US groin RT DATE OF EXAM: 03/29/2020 COMPARISON: NONE CLINICAL HISTORY: Right groin pain and swelling. Right groin pain and swelling x 1 day. Scanned right groin at patient's area of concern. Anechoic fluid-appearing area seen which appears to contain bowel. Fluid appears to measure 1.7 x 5.1 x 2.2 cm. Hypoechoic area with hyperechoic center and vascular hilum seen right groin measuring 1.7 x 2.1 x 1.0 and suggestive of mildly prominent lymph node, likely reactive. IMPRESSION: Suggestion possible bowel containing right inguinal hernia with surrounding fluid structure. Further evaluation with CT with be helpful. Mildly prominent right inguinal lymph node seen, likely reactive.
[2020-03-29 21:21] LABS: Basophils % (A) 0 %; Eosinophils # (A) 0.6 k/uL (0-0.7); Eosinophils % (A) 6 %; HCT 33.9 % (39.0-53.0); HGB 10.9 gm/dL (13.0-17.5); Lymphocytes # (A) 2.1 k/uL (1.0-4.8); Lymphocytes % (A) 22 %; MCH 27.5 pg (25.0-35.0); MCHC 32.2 g/dL (31.0-37.0); MCV 85.5 fL (80.0-100.0); Mean Platelet Volume 7.7; Monocytes # (A) 0.6 k/uL (0-1.0); Monocytes % (A) 6 %; Neutrophils # (A) 5.9 k/uL (1.3-7.7); Neutrophils % (A) 63 %; Platelet Count 294 k/uL (150-450); RBC 3.96 m/uL (4.30-5.90); RDW 15.1 % (11.5-15.5); WBC 9.4 k/uL (3.8-10.6)
[2020-03-29 21:37] LABS: ALT 105 U/L (4-49); AST 62 U/L (17-59); African American GFR (CKD) >90 (>60 ml/min/1.73 sqM); Albumin 3.2 g/dL (3.5-5.0); Alkaline Phosphatase 156 U/L (38-126); Anion Gap 7 mmol/L; Blood Urea Nitrogen 16 mg/dL (9-20); Calcium 8.6 mg/dL (8.4-10.2); Carbon Dioxide 30 mmol/L (22-30); Chloride 105 mmol/L (98-107); Glucose 93 mg/dL (74-99); Non-African American GFR(CKD) 85 (>60 ml/min/1.73 sqM); Potassium 3.8 mmol/L (3.5-5.1); Sodium 142 mmol/L (137-145); Total Bilirubin 0.5 mg/dL (0.2-1.3); Total Protein 6.6 g/dL (6.3-8.2)
--- NOTE | 2020-03-29 22:22 | CT ---
EXAMINATION TYPE: CT abdomen pelvis w con DATE OF EXAM: 03/29/2020 COMPARISON: February 15, 2014 HISTORY: Rt inguinal hernia. CT DLP: 2781.3 mGycm Automated exposure control for dose reduction was used. CONTRAST: Performed with IV Contrast, patient injected with 100 mL of Isovue 300. Images were obtained from the diaphragm to the floor the pelvis with IV contrast. FINDINGS: Lung bases show mild subsegmental atelectasis. There is minimal pleural thickening at the posterior l miriam bases. Heart size is normal. There is no pericardial effusion. There is no pleural effusion. Live r and spleen appear intact. Stomach is intact. Bile ducts are not dilated. Gallbladder is intact. The re is no pancreatic mass. There is no adrenal mass. Kidneys show satisfactory contrast opacification. There is no hydronephrosi s. There is 2 cm cortical cyst lateral left kidney. There is 3 mm calculus upper pole right kidney. T here is no evidence of solid renal mass. There is no retroperitoneal adenopathy. Ureters are not dila nicola. Delayed images show normal renal excretion. There is metal artifact from bilateral hip prosthesi s. There is large right side scrotal hernia that contains small bowel. Appendix appears normal. There is multilevel posterior fusion surgery with metal artifact. There is subcutaneous fluid over the aileen tarah site. This measures up to almost 5 cm in thickness. There is no mesenteric edema. There is no ascites or free air. There is no sign of a bowel obstructio n. Lumbar vertebra have normal alignment. There is no compression fracture. There is disc prosthesis at L3-4 and L4-5. There is posterior fusion from L3 to L5. There is small air bubbles in the posterior s oft tissues with fluid. IMPRESSION: Large inguinal and scrotal hernia on the right side containing small bowel and minimal fluid. No evid ence of a bowel obstruction. Normal appendix. Posterior fusion surgery with laminectomy defect on the left side. Subcutaneous fluid accumulation co uld relate to seroma or hematoma from the recent surgery. No compression fracture. Nonobstructing right renal calculus. There is some new mild pleural thickening and atelectasis at the lung bases compared to old exam.
== END 2020-03-29 23:13 | disposition home or self-care (01) ==
LOC: EC 18:08
DX: K40.90 Unilateral inguinal hernia, without obstruction or gangrene, not specified as recurrent (principal); M79.662 Pain in left lower leg; M54.9 Dorsalgia, unspecified; K21.9 Gastro-esophageal reflux disease without esophagitis; H91.91 Unspecified hearing loss, right ear; Z79.899 Other long term (current) drug therapy; Z96.651 Presence of right artificial knee joint; Z96.643 Presence of artificial hip joint, bilateral
CPT/HCPCS: 36415; 80053; 83605; 85025; 93971; 76882; 74177; 99284; 96372; J2270; Q9967

== ENCOUNTER 2020-04-21 08:29 | Day surgery (SDC) | payer MEDICARE, OTHER ==
[2020-04-14 15:36] VITALS: BMI 35.5
--- NOTE | 2020-04-21 04:41 | P.GSHP ---
History of Present Illness H&P Date: 04/21/20 CHIEF COMPLAINT: Inguinal hernia, right. HISTORY OF PRESENT ILLNESS: The patient is a 64-year-old male who presents with a history of swelling and pain along the right groin. He has noted increased swelling including pain of the area. Now he presents for repair of his inguinal hernia. PAST MEDICAL HISTORY: Please see list. PAST SURGICAL HISTORY: Please see list. MEDICATIONS: Please see list. ALLERGIES: Please see list. SOCIAL HISTORY: No illicit drug use FAMILY HISTORY: No reports of Crohn disease or ulcerative colitis. REVIEW OF ORGAN SYSTEMS: CONSTITUTIONAL: No reports of fevers or chills. No reports of weight loss despite prior attempts. GI: Denies any blood in stools or constipation. PHYSICAL EXAM: VITAL SIGNS: Stable GENERAL: Well-developed pleasant in no acute distress. HEENT: No scleral icterus. Extraocular movements grossly intact. Moist buccal mucosa. NECK: Supple without lymphadenopathy. CHEST: Unlabored respirations. Equal bilateral excursions. CARDIOVASCULAR: Regular rate and rhythm. Distal 2+ pulses. ABDOMEN: Soft, nondistended. No peritoneal signs. Moderate swelling right lower quadrant MUSCULOSKELETAL: No clubbing, cyanosis, or edema. ASSESSMENT: 1. Inguinal hernia, right initial and symptomatic. PLAN: 1. Recommend proceeding robotic inguinal repair with mesh with possible bilateral approach. 2. Benefits and risks of surgical intervention was discussed including possibility of open technique. 3. DVT prophylaxis. 4. Antibiotic prophylaxis. Past Medical History Past Medical History: GERD/Reflux, Hearing Disorder / Deafness, Osteoarthritis (OA), Prostate Disorder Additional Past Medical History / Comment(s): Deaf Rt ear, BACK PAIN, DJD,enlarged prostate History of Any Multi-Drug Resistant Organisms: MRSA Date of last positivie culture/infection: 2014 MDRO Source:: nose Past Surgical History: Back Surgery, Joint Replacement, Orthopedic Surgery Additional Past Surgical History / Comment(s): back surgery 2-21, RT KNEE AND bang HIP replaced(left hip x2). PAIN PROC, COLLARBONE REPAIRED. Past Anesthesia/Blood Transfusion Reactions: No Reported Reaction Additional Past Anesthesia/Blood Transfusion Reaction / Comment(s): no hx blood transfusion Smoking Status: Never smoker - Past Family History Father Family Medical History: Congestive Heart Failure (CHF) Brother(s) Family Medical History: Deep Vein Thrombosis (DVT) Medications and Allergies Home Medications Medication Instructions Recorded Confirmed Type Zolpidem Tartrate [Ambien] 10 mg PO HS PRN 02/17/14 04/14/20 History oxyCODONE-APAP 10-325MG [Percocet 1 tab PO QID PRN 05/31/14 04/14/20 History 10-325 mg] carisoprodoL [Soma] 350 mg PO QID PRN 07/04/16 04/14/20 History Multivitamin [Men's Multi-Vitamin] 1 tab PO DAILY 10/14/16 04/14/20 History Cetirizine HCl [Zyrtec] 10 mg PO BID 01/15/18 04/14/20 History Dutasteride [Avodart] 0.5 mg PO QAM 03/16/20 04/14/20 History Iron Tab 27 mg PO DAILY 03/16/20 04/14/20 History Pantoprazole Sodium [Protonix] 40 mg PO QAM 03/16/20 04/14/20 History Docusate [Colace] 100 mg PO DAILY #30 capsule 03/29/20 04/14/20 Rx Tadalafil [Cialis] 5 mg PO DAILY PRN 03/29/20 04/14/20 History Tamsulosin [Flomax] 0.8 mg PO 1600 03/29/20 04/14/20 History Allergies Allergy/AdvReac Type Severity Reaction Status Date / Time No Known Allergies Allergy Verified 04/14/20 15:29
[~2020-04-21 08:29] MED LIST changes: +HEPARIN SODIUM,PORCINE 5,000 UNIT/ML 1 ML VIAL SQ PRN; +HYDROmorphone 0.5 MG/0.5 ML SYRINGE IVP PRN; +LACTATED RINGERS 1,000 ML IV SCH; -LIDOCAINE 1% (10MG/ML) FOR IV START INTRADERMA PRN; +MIDAZOLAM 2 MG/2 ML VIAL IV PRN; +SCOPOLAMINE 1.5MG/72HR PATCH TRANSDERM ONE; -ceFAZolin 1,000 MG in SODIUM CHLORIDE 0.9% IRRIGATIO 1,000 ML IRRIGATION PRN
[2020-04-21] MEDS ORDERED: LIDOCAINE 1% (10MG/ML) FOR IV START INTRADERMA ONE (09:18)
[2020-04-21] MEDS ORDERED: MIDAZOLAM 2 MG/2 ML VIAL IVP ONE (09:41)
--- NOTE | 2020-04-21 10:13 | P.ANPRN ---
Procedure Note - Anesthesia - Nerve Block Performed Bilateral Transversus Abdominis Single Time Out Performed: Yes ([id number]) Date of Procedure: 04/21/20 Procedure Start Time: 09:41 Procedure Stop Time: 09:52 Location of Patient: PreOp Indication: Acute Post-Operative Pain, Requested by Surgeon Specifically requested for management of pain by : Lizet Steele Sedation Type: Sedate with meaningful contact maintained Preparation: Sterile Prep Position: Supine Catheter: None Needle Types: Pajunk Needle Gauge: 21 Ultrasound used to visualize needle placement: Yes Ultrasound used to observe medication spread: Yes Injectate: Other (see comment) (rOPI 0.25% 30CC EACH SIDE) Blood Aspirated: No Pain Paresthesia on Injection Noted: No Resistance on Injection: Normal Image Stored and Saved: Yes Events: Uneventful and Well Tolerated
[2020-04-21] MEDS ORDERED: ROCURONIUM 10 MG/ML (5 ML VIAL) IV ONE (11:08)
[2020-04-21] MEDS ORDERED: NEOSTIGMINE 1 MG/ML 10 ML VIAL ONE (11:08)
[2020-04-21] MEDS ORDERED: SUCCINYLCHOLINE CHLORIDE 100 MG/5 ML SYR IV ONE (11:08)
[2020-04-21] MEDS ORDERED: ROPIVACAINE 5 MG/ML 30 ML VIAL ONE (11:08)
[2020-04-21] MEDS ORDERED: fentaNYL (PF) 50 MCG/ML 2 ML AMP ONE (11:08)
[2020-04-21] MEDS ORDERED: PROPOFOL 10 MG/ML 20 ML VIAL IV ONE (11:08)
[2020-04-21] MEDS ORDERED: LIDOCAINE 1% INJ 10MG/ML (20 ML MDV) ONE (11:08)
[2020-04-21] MEDS ORDERED: GLYCOPYRROLATE 0.2 MG/ML 2 ML VIAL ONE (11:08)
[2020-04-21] MEDS ORDERED: BUPIVACAIN-EPI 0.5%-1:200,000 30 ML VIAL SQ ONE ×2 (11:32→11:37)
[2020-04-21] MEDS ORDERED: LACTATED RINGERS 1,000 ML IV ONE (13:07)
[2020-04-21 13:15] VITALS: TEMP 98.4
--- NOTE | 2020-04-21 13:18 | P.OP ---
Date of Procedure: 04/21/20 Description of Procedure: SURGEON: LIZET STEELE MD PREOPERATIVE DIAGNOSES: 1. Right inguinal hernia, initial 2. Obstructive uropathy due to prostatic enlargement 3. Osteoarthritis of the lower back 4. Gastroesophageal reflux disease 5. Chronic pain syndrome POSTOPERATIVE DIAGNOSES: 1. Initial right inguinal hernia, incarcerated with small bowel, partial bowel obstruction 2. Obstructive uropathy due to prostatic enlargement 3. Osteoarthritis of the lower back 4. Gastroesophageal reflux disease 5. Chronic pain syndrome 6. Right inguinal lipoma, over 6 cm OPERATION: 1. Robotic-assisted da Shadia Xi laparoscopic reduction and repair of initial incarcerated right indirect inguinal hernia with mesh, 11.[address] 2. Excision of right inguinal subfascial lipoma over 6 cm ANESTHESIA: General with local anesthetic ESTIMATED BLOOD LOSS: 10 mL. SPECIMENS: 1. Incarcerated right inguinal hernia sac with lipoma COMPLICATIONS: None. FINDINGS: 1. Incarcerated indirect right inguinal hernia over 3 cm with incarcerated small bowel without gangrene, Nyhus type 3. 2. Left groin completely scarred with sigmoid colon INDICATIONS: The patient is a 64-year-old male who presents with history of initial right inguinal hernia with incarcerated small bowel of the groin to the emergency room. Now he presents for definitive surgical intervention. Laparoscopic versus open and robotic approaches were discussed including bilateral approach. Benefits and risks including bleeding, infection, chronic groin pain, sterility were reviewed. Placement of mesh was also described. Informed consent was obtained. DESCRIPTION: In the preoperative area, an abdominal block was placed per anesthesia. The patient was brought to the operating room and initially laid in supine position. The abdomen had been prepped and draped in standard sterile fashion. Ioban draping was also placed. Prior to incision, a timeout protocol was confirmed with surgical team regarding patient's name including procedures to be performed. Initial positioning for the robotic assisted ports were selected 20 cm superior to the target anatomy. A 0 degree 5 mm laparoscopic trocar entry was performed at the left upper quadrant. The abdomen was insufflated to 15 mmHg which he tolerated well. Diagnostic laparoscopy demonstrated no injury to bowel, viscera or mesentery. Along the right groin, large indirect hernia with incarcerated small bowel was also found without gangrene. Next, along the epigastrium, 8 mm robot trocar was placed. A 12-mm robotic trocar was placed under direct visualization at the right upper quadrant. An 8 mm port was placed at the left upper quadrant. All trocars were positioned between 10-cm apart from each other. The [employer] XI robot was primed, draped, prepared for docking along upper abdomen of the patient. The patient was positioned 18 steep Trendelenburg position. I then went to the [employer] console. The assistant fitness manager was at bedside for exchange of the robot arms and equipment. Attention was brought to the right groin. A large right inguinal defect was confirmed as the small intestine was reduced from the right groin. Next, the right groin defect was measured 4 x 3-cm hernia with the sac extending to the scrotum. A large indirect hernia was confirmed, Nyhus type III. The right inguinal hernia sac was evaginated whereby the peritoneum was scored using Endo scissors with cautery. A large over 6 cm subfascial right inguinal lipoma was excised using vessel sealer. The peritoneal sac of the hernia was stripped. The sac was resected and then passed off for further pathological analysis. The size of the hernia defect was 4 cm x 3 cm with intraoperative films obtained. Using absorbable 2-0 VLOC, the peritoneal defect of the right inguinal hernia site was closed using a pursestring suture followed by #1 V LOC nonabsorbable to oversew the defect. The defect was found to be completely closed with complete reduction of the right direct inguinal hernia was confirmed. As an onlay, an 11.[address] mesh by [employer] was cut in half and entered into the abdominal cavity via the 12 mm trocar. The mesh was tacked to the pelvis using nonabsorbable #1 VLOC 18-inch length sutures. A final endoscopic imaging was obtained. The robot was undocked from the patient's bedside. I then rescrubbed into the case. Insufflation was released from the abdominal cavity and all instruments were removed from the abdominal cavity. Pressure was applied along the left groin. The rest of incisions were reapproximated using 4-0 Monocryl in a running subcuticular fashion. Local anesthetic was placed along the incision including for a bilateral groin block. Incisions were cleansed using dilute hydrogen peroxide. Liquid glue was applied to the skin. At the end of the procedure, the needle, sponge and instrument counts had been verified correct by the surgical resident. The patient had tolerated the procedure well and was taken to the postanesthesia care unit in stable condition. Intraoperative images were reviewed with the patient's family who were pleased with the level of care. Plan - Discharge Summary New Discharge Prescriptions: New Ibuprofen [Motrin] 600 mg PO Q8HR PRN #30 tab PRN Reason: Pain Acetaminophen Tab [Tylenol Tab] 1,000 mg PO Q6HR PRN #30 tablet PRN Reason: Pain Continue Zolpidem Tartrate [Ambien] 10 mg PO HS PRN PRN Reason: SLEEP oxyCODONE-APAP 10-325MG [Percocet 10-325 mg] 1 tab PO QID PRN PRN Reason: Pain carisoprodoL [Soma] 350 mg PO QID PRN PRN Reason: Pain Multivitamin [Men's Multi-Vitamin] 1 tab PO DAILY Cetirizine HCl [Zyrtec] 10 mg PO BID Dutasteride [Avodart] 0.5 mg PO QAM Pantoprazole Sodium [Protonix] 40 mg PO QAM Iron Tab 27 mg PO DAILY Tamsulosin [Flomax] 0.8 mg PO 1600 Tadalafil [Cialis] 5 mg PO DAILY PRN PRN Reason: E.D. Docusate [Colace] 100 mg PO DAILY #30 capsule Discharge Medication List Zolpidem Tartrate [Ambien] 10 mg PO HS PRN 02/17/14 [History] oxyCODONE-APAP 10-325MG [Percocet 10-325 mg] 1 tab PO QID PRN 05/31/14 [History] carisoprodoL [Soma] 350 mg PO QID PRN 07/04/16 [History] Multivitamin [Men's Multi-Vitamin] 1 tab PO DAILY 10/14/16 [History] Cetirizine HCl [Zyrtec] 10 mg PO BID 01/15/18 [History] Dutasteride [Avodart] 0.5 mg PO QAM 03/16/20 [History] Iron Tab 27 mg PO DAILY 03/16/20 [History] Pantoprazole Sodium [Protonix] 40 mg PO QAM 03/16/20 [History] Docusate [Colace] 100 mg PO DAILY #30 capsule 03/29/20 [Rx] Tadalafil [Cialis] 5 mg PO DAILY PRN 03/29/20 [History] Tamsulosin [Flomax] 0.8 mg PO 1600 03/29/20 [History] Acetaminophen Tab [Tylenol Tab] 1,000 mg PO Q6HR PRN #30 tablet 04/21/20 [Rx] Ibuprofen [Motrin] 600 mg PO Q8HR PRN #30 tab 04/21/20 [Rx] Follow up Appointment(s)/Referral(s): Lizet Steele MD [STAFF PHYSICIAN] - 04/25/20 Patient Instructions/Handouts: Inguinal Hernia Repair (GEN), Laparoscopic Herniorrhaphy (DC) Activity/Diet/Wound Care/Special Instructions: No lifting over 10 pounds in 2 weeks until May 05. June shower. No bath tub soaks for two weeks until May 05 Diet as tolerated. Use Tylenol and ibuprofen or Aleve scheduled for the next 24-48 hours for best pain relief. Use ice along incisions for today to prevent swelling. Discharge Disposition: HOME SELF-CARE
[2020-04-21 13:54] VITALS: RESP 20
[2020-04-21] MEDS ORDERED: oxyCODONE-APAP 5-325MG 1 EACH TAB ONE (14:03)
[2020-04-21] MEDS ORDERED: oxyCODONE-APAP 5-325MG 1 EACH TAB PO ONE (14:06)
[2020-04-21 14:16] VITALS: BP 163/93; PULSE 75
[2020-04-21] MEDS ORDERED: TAMSULOSIN 0.4 MG CAP.ER.24H PO ONE (14:25)
== END 2020-04-21 15:07 | disposition home or self-care (01) ==
LOC: OR 08:29
PROVIDERS: ATTEND Surgery Plastic and Reconstructive Surgery
DX: K40.30 Unilateral inguinal hernia, with obstruction, without gangrene, not specified as recurrent (principal); N13.8 Other obstructive and reflux uropathy; K56.600 Partial intestinal obstruction, unspecified as to cause; N40.1 Benign prostatic hyperplasia with lower urinary tract symptoms; D17.1 Benign lipomatous neoplasm of skin and subcutaneous tissue of trunk; K21.9 Gastro-esophageal reflux disease without esophagitis; M19.90 Unspecified osteoarthritis, unspecified site; G89.4 Chronic pain syndrome; H91.90 Unspecified hearing loss, unspecified ear; Z86.14 Personal history of Methicillin resistant Staphylococcus aureus infection; Z96.653 Presence of artificial knee joint, bilateral; Z98.890 Other specified postprocedural states; Z82.49 Family history of ischemic heart disease and other diseases of the circulatory system; Z79.891 Long term (current) use of opiate analgesic; Z79.899 Other long term (current) drug therapy
CPT/HCPCS: 49650; 64488; 88304; C1781; J2250; J1644; J1100; J2710; J0690; J2405; J2001; J3010; J2795; J0330; J2704

== ENCOUNTER → 2020-05-17 | Day surgery (SDC) | payer MEDICARE, OTHER ==
[2020-05-11 11:16] VITALS: BMI 37.0
[~2020-05-17] MED LIST changes: -DEXAMETHASONE SOD PHOSPHATE 4 MG/ML 1 ML VIAL IV ONE; -HEPARIN SODIUM,PORCINE 5,000 UNIT/ML 1 ML VIAL SQ PRN; -HYDROmorphone 0.5 MG/0.5 ML SYRINGE IVP PRN; +LACTATED RINGERS 1,000 ML IV ONE; +LIDOCAINE 1% (10MG/ML) FOR IV START INTRADERMA ONE; -MIDAZOLAM 2 MG/2 ML VIAL IV PRN; -ONDANSETRON 4 MG/2 ML VIAL IVP ONE; +PROPOFOL 10 MG/ML 20 ML VIAL IV ONE; -SCOPOLAMINE 1.5MG/72HR PATCH TRANSDERM ONE
--- NOTE | 2020-05-17 07:44 | P.GSHP ---
History of Present Illness H&P Date: 05/17/20 CHIEF COMPLAINT: GERD HISTORY OF PRESENT ILLNESS: The patient is a 64-year-old male who presents reports gastroesophageal reflux disease. Upper endoscopy was offered for further evaluation and management. PAST MEDICAL HISTORY: Please see list. PAST SURGICAL HISTORY: Please see list. MEDICATIONS: Please see list. ALLERGIES: Please see list. SOCIAL HISTORY: No illicit drug use FAMILY HISTORY: No reports of Crohn disease or ulcerative colitis. REVIEW OF ORGAN SYSTEMS: CONSTITUTIONAL: No reports of fevers or chills. GI: Denies any blood in stools or constipation. PHYSICAL EXAM: VITAL SIGNS: Stable GENERAL: Well-developed and pleasant in no acute distress. HEENT: No scleral icterus. Extraocular movements grossly intact. Moist buccal mucosa. NECK: Supple without lymphadenopathy. CHEST: Unlabored respirations. Equal bilateral excursions. CARDIOVASCULAR: Regular rate and rhythm. Distal 2+ pulses. ABDOMEN: Soft, nondistended. MUSCULOSKELETAL: No clubbing, cyanosis, or edema. ASSESSMENT: 1. Gastroesophageal reflux disease PLAN: 1. Recommend proceeding with an upper endoscopy Past Medical History Past Medical History: GERD/Reflux, Hearing Disorder / Deafness, Osteoarthritis (OA), Prostate Disorder Additional Past Medical History / Comment(s): Deaf in right ear, BACK PAIN, DJD, enlarged prostate. Blood in stool X1 2 weeks ago. History of Any Multi-Drug Resistant Organisms: MRSA Date of last positivie culture/infection: 2014 MDRO Source:: nose Past Surgical History: Back Surgery, Hernia Repair, Joint Replacement, Orthopedic Surgery Additional Past Surgical History / Comment(s): Back surgery 03-22-20, RIGHT KNEE AND BILATERAL HIP replaced. Left hip Repalced X2. PAIN PROCEDURES, COLLARBONE REPAIRED. Right inguinal repair. Past Anesthesia/Blood Transfusion Reactions: No Reported Reaction Additional Past Anesthesia/Blood Transfusion Reaction / Comment(s): No hx blood transfusion. Past Psychological History: No Psychological Hx Reported Smoking Status: Never smoker Past Alcohol Use History: None Reported Past Drug Use History: None Reported - Past Family History Father Family Medical History: Congestive Heart Failure (CHF) Brother(s) Family Medical History: Deep Vein Thrombosis (DVT) Medications and Allergies Home Medications Medication Instructions Recorded Confirmed Type Zolpidem Tartrate [Ambien] 10 mg PO HS PRN 02/17/14 05/11/20 History oxyCODONE-APAP 10-325MG [Percocet 1 tab PO QID PRN 05/31/14 05/11/20 History 10-325 mg] carisoprodoL [Soma] 350 mg PO QID PRN 07/04/16 05/11/20 History Multivitamin [Men's Multi-Vitamin] 1 tab PO DAILY 10/14/16 05/11/20 History Cetirizine HCl [Zyrtec] 10 mg PO BID 01/15/18 05/11/20 History Dutasteride [Avodart] 0.5 mg PO QAM 03/16/20 05/11/20 History Iron Tab 27 mg PO DAILY 03/16/20 05/11/20 History Pantoprazole Sodium [Protonix] 40 mg PO QAM 03/16/20 05/11/20 History Tadalafil [Cialis] 5 mg PO DAILY PRN 03/29/20 05/11/20 History Tamsulosin [Flomax] 0.8 mg PO 1600 03/29/20 05/11/20 History Acetaminophen Tab [Tylenol Tab] 1,000 mg PO Q6HR PRN #30 tablet 04/21/20 05/11/20 Rx Allergies Allergy/AdvReac Type Severity Reaction Status Date / Time No Known Allergies Allergy Verified 04/21/20 08:44
[2020-05-17 09:38] VITALS: TEMP 97.4
--- NOTE | 2020-05-17 10:48 | P.PCN ---
Date of Procedure: 05/17/20 Description of Procedure: PREOPERATIVE DIAGNOSIS: Colonoscopy screening. Personal history of colon polyps POSTOPERATIVE DIAGNOSIS: Colonoscopy screening. Personal history of colon polyps Diverticulosis, scattered. OPERATION: Colonoscopy to the cecum, ileocecal valve and appendiceal orifice. SURGEON: Lizet Steele MD. ANESTHESIA: MAC. INDICATIONS: The patient is a 64-year-old male who presents for colonoscopy screening. Last colonoscopy 5 years ago. Benefits and risks were described and informed consent was obtained. DESCRIPTION OF PROCEDURE: The patient had undergone Golytely prep. The patient had been brought into the operating room and laid in the left lateral decubitus position. After adequate intravenous sedation, the rectum was examined with 2% lidocaine jelly. No external hemorrhoids were encountered. The rectal tone was within normal limits. No lesions were palpated in the rectal vault. An Olympus colonoscope was advanced until the cecum, ileocecal valve and appendiceal orifice were clearly viewed. The prep was excellent. Scattered diverticulosis was encountered. No colonic polyps were found. No evidence of focal colitis was found. Retroflexion of the scope demonstrated grade 1 internal hemorrhoids without active bleeding or inflammation. The colon was desufflated. The patient had tolerated the procedure well. Withdrawal time was over 6 minutes. FINDINGS: Aronchick preparation quality scale 1 (1-5) Internal hemorrhoids, grade 1 No external prolapsed hemorrhoids. No arteriovenous malformations. No adenomatous polyps. No focal colitis. RECOMMENDATIONS: Lower endoscopy in 5 years, 2025 Plan - Discharge Summary Discharge Rx Participant: Yes New Discharge Prescriptions: Continue Zolpidem Tartrate [Ambien] 10 mg PO HS PRN PRN Reason: SLEEP oxyCODONE-APAP 10-325MG [Percocet 10-325 mg] 1 tab PO QID PRN PRN Reason: Pain carisoprodoL [Soma] 350 mg PO QID PRN PRN Reason: Pain Multivitamin [Men's Multi-Vitamin] 1 tab PO DAILY Cetirizine HCl [Zyrtec] 10 mg PO BID Dutasteride [Avodart] 0.5 mg PO QAM Pantoprazole Sodium [Protonix] 40 mg PO QAM Iron Tab 27 mg PO DAILY Tamsulosin [Flomax] 0.8 mg PO 1600 Tadalafil [Cialis] 5 mg PO DAILY PRN PRN Reason: E.D. Acetaminophen Tab [Tylenol] 1,000 mg PO Q6HR PRN #30 tablet PRN Reason: Pain Discharge Medication List Zolpidem Tartrate [Ambien] 10 mg PO HS PRN 02/17/14 [History] oxyCODONE-APAP 10-325MG [Percocet 10-325 mg] 1 tab PO QID PRN 05/31/14 [History] carisoprodoL [Soma] 350 mg PO QID PRN 07/04/16 [History] Multivitamin [Men's Multi-Vitamin] 1 tab PO DAILY 10/14/16 [History] Cetirizine HCl [Zyrtec] 10 mg PO BID 01/15/18 [History] Dutasteride [Avodart] 0.5 mg PO QAM 03/16/20 [History] Iron Tab 27 mg PO DAILY 03/16/20 [History] Pantoprazole Sodium [Protonix] 40 mg PO QAM 03/16/20 [History] Tadalafil [Cialis] 5 mg PO DAILY PRN 03/29/20 [History] Tamsulosin [Flomax] 0.8 mg PO 1600 03/29/20 [History] Acetaminophen Tab [Tylenol] 1,000 mg PO Q6HR PRN #30 tablet 04/21/20 [Rx] Follow up Appointment(s)/Referral(s): Lizet Steele MD [STAFF PHYSICIAN] - As Needed Patient Instructions/Handouts: Diverticulosis Diet (GEN), Diverticulosis (DC) Activity/Diet/Wound Care/Special Instructions: Repeat colonoscopy 5 years, 2025 Discharge Disposition: HOME SELF-CARE
[2020-05-17 10:59] VITALS: BP 156/90; PULSE 59; RESP 18
== END | disposition home or self-care (01) ==
LOC: ORWHC2ENDO 08:53
PROVIDERS: ATTEND Surgery Plastic and Reconstructive Surgery
DX: Z12.11 Encounter for screening for malignant neoplasm of colon (principal); K57.30 Diverticulosis of large intestine without perforation or abscess without bleeding; K64.0 First degree hemorrhoids; K21.9 Gastro-esophageal reflux disease without esophagitis; M19.90 Unspecified osteoarthritis, unspecified site; H91.91 Unspecified hearing loss, right ear; Z86.14 Personal history of Methicillin resistant Staphylococcus aureus infection; Z82.49 Family history of ischemic heart disease and other diseases of the circulatory system; Z79.899 Other long term (current) drug therapy; Z86.010 Personal history of colon polyps
CPT/HCPCS: J2704; G0121; 45378

== ENCOUNTER 2020-10-12 01:22 | Emergency (ER) | payer MEDICARE, OTHER ==
[2020-10-12 01:30] VITALS: TEMP 97.5
[2020-10-12] MEDS ORDERED: HYDROmorphone 1 MG/ML 1 ML SYRINGE IM STA (01:37)
[2020-10-12] MEDS ORDERED: ONDANSETRON 4 MG/2 ML VIAL IVP STA (01:37)
[2020-10-12] MEDS ORDERED: SODIUM CHLORIDE 0.9% 1,000 ML IV STA (01:37)
--- NOTE | 2020-10-12 01:55 | ED ---
Abdominal Pain HPI - General Chief Complaint: Abdominal Pain Stated Complaint: Abdominal pain Time Seen by Provider: 10/12/20 01:33 Source: patient, family Mode of arrival: ambulatory Limitations: no limitations - History of Present Illness Initial Comments: 64 year-old male patient presents for evaluation of lower abdominal pain and diarrhea. He states symptoms started around 5:30 this evening about 45 minutes after eating some fish. States he did have 2-3 episodes of diarrhea. States the pain has been constant. Denies radiation into his back. Denies any hematochezia or melena. Denies any hematuria, dysuria, or urinary frequency. Denies history of abdominal surgery. Denies any fever or chills. Denies any nausea or vomiting. Patient denies any recent rash, cough, shortness of breath, chest pain, back pain, numbness, tingling, dizziness, weakness, headache, visual changes, or any other complaints. - Related Data Home Medications Medication Instructions Recorded Confirmed Zolpidem Tartrate [Ambien] 10 mg PO HS PRN 02/17/14 05/17/20 oxyCODONE-APAP 10-325MG [Percocet 1 tab PO QID PRN 05/31/14 05/17/20 10-325 mg] carisoprodoL [Soma] 350 mg PO QID PRN 07/04/16 05/17/20 Multivitamin [Men's Multi-Vitamin] 1 tab PO DAILY 10/14/16 05/17/20 Cetirizine HCl [Zyrtec] 10 mg PO BID 01/15/18 05/17/20 Dutasteride [Avodart] 0.5 mg PO QAM 03/16/20 05/17/20 Iron Tab 27 mg PO DAILY 03/16/20 05/17/20 Pantoprazole Sodium [Protonix] 40 mg PO QAM 03/16/20 05/17/20 Tadalafil [Cialis] 5 mg PO DAILY PRN 03/29/20 05/17/20 Tamsulosin [Flomax] 0.8 mg PO 1600 03/29/20 05/17/20 Previous Rx's Medication Instructions Recorded Acetaminophen Tab [Tylenol] 1,000 mg PO Q6HR PRN #30 tablet 04/21/20 Allergies Allergy/AdvReac Type Severity Reaction Status Date / Time No Known Allergies Allergy Verified 10/12/20 01:30 Review of Systems ROS Statement: Those systems with pertinent positive or pertinent negative responses have been documented in the HPI. ROS Other: All systems not noted in ROS Statement are negative. Past Medical History Past Medical History: GERD/Reflux, Hearing Disorder / Deafness, Osteoarthritis (OA), Prostate Disorder Additional Past Medical History / Comment(s): Deaf in right ear, BACK PAIN, DJD, enlarged prostate. Blood in stool X1 2 weeks ago. History of Any Multi-Drug Resistant Organisms: MRSA Date of last positivie culture/infection: 2014 MDRO Source:: nose Past Surgical History: Back Surgery, Hernia Repair, Joint Replacement, Orthopedic Surgery Additional Past Surgical History / Comment(s): Back surgery 03-22-20, RIGHT KNEE AND BILATERAL HIP replaced. Left hip Repalced X2. PAIN PROCEDURES, COLLARBONE REPAIRED. Right inguinal repair. Past Anesthesia/Blood Transfusion Reactions: No Reported Reaction Additional Past Anesthesia/Blood Transfusion Reaction / Comment(s): No hx blood transfusion. Past Psychological History: No Psychological Hx Reported Smoking Status: Never smoker Past Alcohol Use History: None Reported Past Drug Use History: None Reported - Past Family History Father Family Medical History: Congestive Heart Failure (CHF) Brother(s) Family Medical History: Deep Vein Thrombosis (DVT) General Exam Limitations: no limitations General appearance: alert, in no apparent distress, other (Physical well-developed, well-nourished adult male patient in no acute distress. Vital signs upon presentation are temperature 97.5F, pulse 56, respirations 20, blood pressure 174/95, pulse ox 99% on room air.) Eye exam: Present: normal appearance, PERRL, EOMI. Absent: scleral icterus, conjunctival injection, periorbital swelling ENT exam: Present: normal exam, normal oropharynx, mucous membranes moist Respiratory exam: Present: normal lung sounds bilaterally. Absent: respiratory distress, wheezes, rales, rhonchi, stridor Cardiovascular Exam: Present: regular rate, normal rhythm, normal heart sounds. Absent: systolic murmur, diastolic murmur, rubs, gallop, clicks GI/Abdominal exam: Present: soft, tenderness (Generalized), normal bowel sounds. Absent: distended, guarding, rebound, rigid Neurological exam: Present: alert, oriented X3, CN II-XII intact Psychiatric exam: Present: normal affect, normal mood Skin exam: Present: warm, dry, intact, normal color. Absent: rash Course Vital Signs 10/12/20 01:25 Temperature 97.5 F L Pulse Rate 56 L Respiratory 20 Rate Blood Pressure 174/95 O2 Sat by Pulse 99 Oximetry Medical Decision Making - Medical Decision Making 64-year-old male patient presented for evaluation of diffuse abdominal pain with 3-4 episodes of diarrhea. Physical examination did reveal generalized tenderness. Labs reviewed and are unremarkable. CT abdomen and pelvis was obtained and did show dilated small bowel consistent with mechanical small bowel ejection. He'll be admitted to the hospital. He is nothing by mouth. We'll consult Dr. Steele who he has seen in the past. We did not place NG tube since he is not vomiting nor nauseated. He agrees with this plan. Case discussed with my attending Dr. Acosta. - Lab Data Result diagrams: 10/12/20 02:04 10/12/20 02:04 Lab Results 10/12/20 10/12/20 10/12/20 Range/Units 02:04 02:04 02:04 WBC 7.6 (3.8-10.6) k/uL RBC 4.65 (4.30-5.90) m/uL Hgb 13.4 (13.0-17.5) gm/dL Hct 41.0 (39.0-53.0) % MCV 88.2 (80.0-100.0) fL MCH 28.8 (25.0-35.0) pg MCHC 32.7 (31.0-37.0) g/dL RDW 16.5 H (11.5-15.5) % Plt Count 171 (150-450) k/uL MPV 9.1 Neutrophils % 56 % Lymphocytes % 35 % Monocytes % 5 % Eosinophils % 2 % Basophils % 0 % Neutrophils # 4.3 (1.3-7.7) k/uL Lymphocytes # 2.6 (1.0-4.8) k/uL Monocytes # 0.4 (0-1.0) k/uL Eosinophils # 0.2 (0-0.7) k/uL Basophils # 0.0 (0-0.2) k/uL Hypochromasia Slight Anisocytosis Slight Sodium 139 (137-145) mmol/L Potassium 4.0 (3.5-5.1) mmol/L Chloride 111 H (98-107) mmol/L Carbon Dioxide 21 L (22-30) mmol/L Anion Gap 7 mmol/L BUN 22 H (9-20) mg/dL Creatinine 1.17 (0.66-1.25) mg/dL Est GFR (CKD-EPI)AfAm 76 (>60 ml/min/1.73 sqM) Est GFR (CKD-EPI)NonAf 66 (>60 ml/min/1.73 sqM) Glucose 109 H (74-99) mg/dL Plasma Lactic Acid Everette 0.7 (0.7-2.0) mmol/L Calcium 9.6 (8.4-10.2) mg/dL Total Bilirubin 0.3 (0.2-1.3) mg/dL AST 31 (17-59) U/L ALT 28 (4-49) U/L Alkaline Phosphatase 113 (38-126) U/L Total Protein 6.7 (6.3-8.2) g/dL Albumin 3.8 (3.5-5.0) g/dL Lipase 35 (23-300) U/L - Radiology Data Radiology results: report reviewed, image reviewed CT abdomen and pelvis with contrast is obtained. Report is reviewed in its entirety. Impression by Dr. Thurston shows compared to old exam there is development of dilated mid small bowel consistent with mid mechanical small bowel obstruction. Transition point not identified. This patient has incarcerated right inguinal hernia on previous computed tomography scan but no hernia sac identified on this exam. There is mild cardiomegaly. Heart appears increased compared to old exam. Nonobstructing right renal calculus. Disposition Clinical Impression: Small bowel obstruction Disposition: ADMITTED IP TO THIS HOSP Condition: Serious Referrals: Shaun Wang MD [Primary Care Provider] - 1-2 days Decision to Admit Reason: Admit from [facility] Decision Date: 10/12/20 Decision Time: 03:06
[2020-10-12] MEDS ORDERED: HYDROmorphone 1 MG/ML 1 ML SYRINGE IVP STA (01:58)
[2020-10-12 02:23] LABS: Anisocytosis Slight; Basophils % (A) 0 %; Eosinophils # (A) 0.2 k/uL (0-0.7); Eosinophils % (A) 2 %; HGB 13.4 gm/dL (13.0-17.5); Hypochromasia Slight; Lymphocytes # (A) 2.6 k/uL (1.0-4.8); Lymphocytes % (A) 35 %; MCH 28.8 pg (25.0-35.0); MCHC 32.7 g/dL (31.0-37.0); MCV 88.2 fL (80.0-100.0); Mean Platelet Volume 9.1; Monocytes # (A) 0.4 k/uL (0-1.0); Monocytes % (A) 5 %; Neutrophils # (A) 4.3 k/uL (1.3-7.7); Neutrophils % (A) 56 %; Platelet Count 171 k/uL (150-450); RBC 4.65 m/uL (4.30-5.90); RDW 16.5 % (11.5-15.5); WBC 7.6 k/uL (3.8-10.6)
[2020-10-12 02:43] LABS: Albumin 3.8 g/dL (3.5-5.0); Calcium 9.6 mg/dL (8.4-10.2); Total Bilirubin 0.3 mg/dL (0.2-1.3); Total Protein 6.7 g/dL (6.3-8.2)
--- NOTE | 2020-10-12 02:46 | CT ---
EXAMINATION TYPE: CT abdomen pelvis w con DATE OF EXAM: 10/12/2020 COMPARISON: 03/29/2020 HISTORY: Abd. pain CT DLP: 1661.8 mGycm Automated exposure control for dose reduction was used. CONTRAST: Performed with IV Contrast, patient injected with 100 mL of Isovue 300. Lung bases are clear of consolidation. There is no pleural effusion. Heart appears enlarged. There is no pericardial effusion. Liver spleen stomach pancreas gallbladder appear intact. Bile ducts are nondilated. There is no adrenal mass. Kidneys show satisfactory contrast opacification. There is 3 mm calculus up per pole right kidney. There is 2 cm cortical cyst posterior left kidney. There is no hydronephrosis. Ureters are not dilated. Delayed images show normal renal excretion. There is no retroperitoneal fazal nopathy. Bladder distends smoothly. There is metal artifact that obscures detail in the pelvis. There are multiple dilated fluid-filled small bowel loops in the mid abdomen. These measure up to 3.5 cm. Appendix appears normal. The terminal ileum is not dilated. Transition point not identified. The re are sigmoid diverticula. There is no sign of diverticulitis. The lumbar vertebra have normal alignment. There is multilevel posterior fusion surgery. There is no lumbar compression fracture. The bony pelvis appears intact. IMPRESSION: Compared to old exam there is development of dilated mid small bowel consistent with mid mechanical s mall bowel obstruction. Transition point not identified. This patient had incarcerated right inguinal hernia on previous CT scan but no hernia sac identified on this exam. There is mild cardiomegaly. Heart appears increased compared to old exam. Nonobstructing right renal calculus.
[2020-10-12] MEDS ORDERED: NALOXONE 0.4 MG/ML 1 ML VIAL IV PRN (03:02)
[2020-10-12] MEDS ORDERED: ONDANSETRON 4 MG/2 ML VIAL IVP PRN (03:02)
[2020-10-12] MEDS ORDERED: HYDROmorphone 1 MG/ML 1 ML SYRINGE IVP PRN (03:02)
[2020-10-12] MEDS ORDERED: SODIUM CHLORIDE 0.9% 1,000 ML IV SCH (03:15)
[2020-10-12 03:25] LABS: Appearance,Urine Clear (Clear); Bilirubin,Urine Negative (Negative); Blood,Urine Negative (Negative); Color,Urine Light Yellow; Glucose,Urine (UA) Negative (Negative); Ketones,Urine Negative (Negative); Leukocyte Esterase,Urine Negative (Negative); Nitrite,Urine Negative (Negative); PH, Urine 5.5 (5.0-8.0); Protein,Urine Negative (Negative); Urobilinogen,Urine <2.0 mg/dL (<2.0)
[2020-10-12 03:32] LABS: Specific Gravity,Urine >1.050 (1.001-1.035)
--- NOTE | 2020-10-12 04:09 | ED ---
Medical Decision Making - Medical Decision Making 61 female to the ER today for evaluation patient presents today for evaluation of abdominal pain found to have ileus, during the ER patient states his symptoms are significantly improved is able to drink water and he prefers discharged home states he's had this multiple times in the past with no significant outcome been staying at home with mild symptoms water will be just fine - Lab Data Result diagrams: 10/12/20 02:04 10/12/20 02:04 Lab Results 10/12/20 10/12/20 10/12/20 Range/Units 02:04 02:04 02:04 WBC 7.6 (3.8-10.6) k/uL RBC 4.65 (4.30-5.90) m/uL Hgb 13.4 (13.0-17.5) gm/dL Hct 41.0 (39.0-53.0) % MCV 88.2 (80.0-100.0) fL MCH 28.8 (25.0-35.0) pg MCHC 32.7 (31.0-37.0) g/dL RDW 16.5 H (11.5-15.5) % Plt Count 171 (150-450) k/uL MPV 9.1 Neutrophils % 56 % Lymphocytes % 35 % Monocytes % 5 % Eosinophils % 2 % Basophils % 0 % Neutrophils # 4.3 (1.3-7.7) k/uL Lymphocytes # 2.6 (1.0-4.8) k/uL Monocytes # 0.4 (0-1.0) k/uL Eosinophils # 0.2 (0-0.7) k/uL Basophils # 0.0 (0-0.2) k/uL Hypochromasia Slight Anisocytosis Slight Sodium 139 (137-145) mmol/L Potassium 4.0 (3.5-5.1) mmol/L Chloride 111 H (98-107) mmol/L Carbon Dioxide 21 L (22-30) mmol/L Anion Gap 7 mmol/L BUN 22 H (9-20) mg/dL Creatinine 1.17 (0.66-1.25) mg/dL Est GFR (CKD-EPI)AfAm 76 (>60 ml/min/1.73 sqM) Est GFR (CKD-EPI)NonAf 66 (>60 ml/min/1.73 sqM) Glucose 109 H (74-99) mg/dL Plasma Lactic Acid Everette (0.7-2.0) mmol/L Calcium 9.6 (8.4-10.2) mg/dL Total Bilirubin 0.3 (0.2-1.3) mg/dL AST 31 (17-59) U/L ALT 28 (4-49) U/L Alkaline Phosphatase 113 (38-126) U/L Total Protein 6.7 (6.3-8.2) g/dL Albumin 3.8 (3.5-5.0) g/dL Lipase 35 (23-300) U/L Urine Color Light Yellow Urine Appearance Clear (Clear) Urine pH 5.5 (5.0-8.0) Ur Specific Hondo >1.050 H (1.001-1.035) Urine Protein Negative (Negative) Urine Glucose (UA) Negative (Negative) Urine Ketones Negative (Negative) Urine Blood Negative (Negative) Urine Nitrite Negative (Negative) Urine Bilirubin Negative (Negative) Urine Urobilinogen <2.0 (<2.0) mg/dL Ur Leukocyte Esterase Negative (Negative) 10/12/20 Range/Units 02:04 WBC (3.8-10.6) k/uL RBC (4.30-5.90) m/uL Hgb (13.0-17.5) gm/dL Hct (39.0-53.0) % MCV (80.0-100.0) fL MCH (25.0-35.0) pg MCHC (31.0-37.0) g/dL RDW (11.5-15.5) % Plt Count (150-450) k/uL MPV Neutrophils % % Lymphocytes % % Monocytes % % Eosinophils % % Basophils % % Neutrophils # (1.3-7.7) k/uL Lymphocytes # (1.0-4.8) k/uL Monocytes # (0-1.0) k/uL Eosinophils # (0-0.7) k/uL Basophils # (0-0.2) k/uL Hypochromasia Anisocytosis Sodium (137-145) mmol/L Potassium (3.5-5.1) mmol/L Chloride (98-107) mmol/L Carbon Dioxide (22-30) mmol/L Anion Gap mmol/L BUN (9-20) mg/dL Creatinine (0.66-1.25) mg/dL Est GFR (CKD-EPI)AfAm (>60 ml/min/1.73 sqM) Est GFR (CKD-EPI)NonAf (>60 ml/min/1.73 sqM) Glucose (74-99) mg/dL Plasma Lactic Acid Everette 0.7 (0.7-2.0) mmol/L Calcium (8.4-10.2) mg/dL Total Bilirubin (0.2-1.3) mg/dL AST (17-59) U/L ALT (4-49) U/L Alkaline Phosphatase (38-126) U/L Total Protein (6.3-8.2) g/dL Albumin (3.5-5.0) g/dL Lipase (23-300) U/L Urine Color Urine Appearance (Clear) Urine pH (5.0-8.0) Ur Specific Hondo (1.001-1.035) Urine Protein (Negative) Urine Glucose (UA) (Negative) Urine Ketones (Negative) Urine Blood (Negative) Urine Nitrite (Negative) Urine Bilirubin (Negative) Urine Urobilinogen (<2.0) mg/dL Ur Leukocyte Esterase (Negative) Disposition Clinical Impression: Small bowel obstruction Disposition: HOME SELF-CARE Condition: Fair Instructions (If sedation given, give patient instructions): Ileus (ED) Is patient prescribed a controlled substance at d/c from ED?: No Referrals: Shaun Wang MD [Primary Care Provider] - 1-2 days
[2020-10-12 04:25] VITALS: BP 143/70; PULSE 51; RESP 18
== END 2020-10-12 04:29 | disposition home or self-care (01) ==
LOC: EC 01:22 → UNDOADMIN 02:59 → 5NMEDONC 02:59 → EC 04:29
DX: K56.609 Unspecified intestinal obstruction, unspecified as to partial versus complete obstruction (principal); K21.9 Gastro-esophageal reflux disease without esophagitis; M19.90 Unspecified osteoarthritis, unspecified site; Z96.643 Presence of artificial hip joint, bilateral; Z96.651 Presence of right artificial knee joint
CPT/HCPCS: 99285; 96374; 96375; 96361; 36415; 80053; 83605; 83690; 85025; 81003; 74177; J2405; J1170; Q9967; 99284

== ENCOUNTER 2020-10-30 08:42 | Day surgery (SDC) | payer MEDICARE, OTHER ==
[2020-10-27 12:35] VITALS: BMI 32.8
--- NOTE | 2020-10-30 07:24 | P.GSHP ---
History of Present Illness H&P Date: 10/30/20 CHIEF COMPLAINT: History of intra-abdominal adhesions HISTORY OF PRESENT ILLNESS: The patient is a 68-year-old male who presents with history of intra-abdominal adhesions, small bowel obstruction including increasing abdominal pain. He now presents for diagnostic laparoscopy including lysis of adhesions. PAST MEDICAL HISTORY: Please see list. PAST SURGICAL HISTORY: Please see list. MEDICATIONS: Please see list. ALLERGIES: Please see list. SOCIAL HISTORY: No illicit drug use FAMILY HISTORY: No reports of Crohn disease or ulcerative colitis. REVIEW OF ORGAN SYSTEMS: CONSTITUTIONAL: No reports of fevers or chills. PHYSICAL EXAM: VITAL SIGNS: Stable GENERAL: Well-developed pleasant and in no acute distress. HEENT: No scleral icterus. Extraocular movements grossly intact. Moist buccal mucosa. NECK: Supple without lymphadenopathy. CHEST: Unlabored respirations. Equal bilateral excursions. CARDIOVASCULAR: Regular rate and rhythm. Distal 2+ pulses. ABDOMEN: Soft, distended. No peritonitis. MUSCULOSKELETAL: No clubbing, cyanosis, or edema. ASSESSMENT: 1. Diffuse abdominal pain. 2. Small bowel obstruction 3. Intra-abdominal adhesions. PLAN: 1. Robotic lysis of adhesions were described in detail including risk of injury to the intestine, need for further surgery, and open technique. 2. DVT prophylaxis. 3. Antibiotic prophylaxis. Past Medical History Past Medical History: GERD/Reflux, Hearing Disorder / Deafness, Osteoarthritis (OA), Prostate Disorder Additional Past Medical History / Comment(s): Deaf in right ear, BACK PAIN, DJD, enlarged prostate, just d/c from [facility] for abd. pain related to surgery scheduled, feels better History of Any Multi-Drug Resistant Organisms: MRSA Date of last positivie culture/infection: 2014 MDRO Source:: nose Past Surgical History: Back Surgery, Hernia Repair, Joint Replacement, Orthopedic Surgery Additional Past Surgical History / Comment(s): Back surgery 2-321, right knee replacement, right hip replacement, left hip replacement X2, PAIN PROCEDURES, COLLARBONE REPAIRED, right inguinal repair. Past Anesthesia/Blood Transfusion Reactions: No Reported Reaction Additional Past Anesthesia/Blood Transfusion Reaction / Comment(s): No hx blood transfusion. Smoking Status: Never smoker - Past Family History Father Family Medical History: Congestive Heart Failure (CHF) Brother(s) Family Medical History: Deep Vein Thrombosis (DVT) Medications and Allergies Home Medications Medication Instructions Recorded Confirmed Type Zolpidem Tartrate [Ambien] 10 mg PO HS PRN 02/17/14 10/27/20 History oxyCODONE-APAP 10-325MG [Percocet 1 tab PO QID PRN 05/31/14 10/27/20 History 10-325 mg] carisoprodoL [Soma] 350 mg PO QID PRN 07/04/16 10/27/20 History Multivitamin [Men's Multi-Vitamin] 1 tab PO DAILY 10/14/16 10/27/20 History Cetirizine HCl [Zyrtec] 10 mg PO BID 01/15/18 10/27/20 History Dutasteride [Avodart] 0.5 mg PO QAM 03/16/20 10/27/20 History Iron Tab 27 mg PO DAILY 03/16/20 10/27/20 History Pantoprazole Sodium [Protonix] 40 mg PO QAM 03/16/20 10/27/20 History Tadalafil [Cialis] 5 mg PO DAILY PRN 03/29/20 10/27/20 History Tamsulosin [Flomax] 0.8 mg PO 1600 03/29/20 10/27/20 History Allergies Allergy/AdvReac Type Severity Reaction Status Date / Time No Known Allergies Allergy Verified 10/27/20 12:10
[~2020-10-30 08:42] MED LIST changes: +ACETAMINOPHEN TAB 500 MG TAB PO PRN; +DEXAMETHASONE SOD PHOSPHATE 4 MG/ML 1 ML VIAL IV ONE; +GABAPENTIN 300 MG CAP PO PRN; +HEPARIN SODIUM,PORCINE/PF 5,000 UNIT/0.5 ML SYRINGE SQ PRN; -LACTATED RINGERS 1,000 ML IV ONE; -LACTATED RINGERS 1,000 ML IV SCH; -LIDOCAINE 1% (10MG/ML) FOR IV START INTRADERMA ONE; +MELOXICAM 7.5 MG TAB PO PRN; +ONDANSETRON 4 MG/2 ML VIAL IVP ONE; -PROPOFOL 10 MG/ML 20 ML VIAL IV ONE; +Pre Op ABX Message 1 EACH MISC MISCELLANE ONE; +TAMSULOSIN 0.4 MG CAP.ER.24H PO PRN
[2020-10-30 09:16] VITALS: RESP 16
[2020-10-30] MEDS: LACTATED RINGERS 1,000 ML IV SCH ×2 (09:26→15:09)
[2020-10-30] MEDS ORDERED: LIDOCAINE 1% (10MG/ML) FOR IV START SQ ONE (09:26)
[2020-10-30] MEDS ORDERED: MIDAZOLAM 2 MG/2 ML VIAL IV ONE (09:49)
[2020-10-30] MEDS ORDERED: ROCURONIUM 10 MG/ML (5 ML VIAL) IV ONE (10:27)
[2020-10-30] MEDS ORDERED: PROPOFOL 10 MG/ML 20 ML VIAL IV ONE (10:27)
[2020-10-30] MEDS ORDERED: KETOROLAC 15 MG/ML 1 ML VIAL ONE (10:27)
[2020-10-30] MEDS ORDERED: SODIUM CHLORIDE 0.9% (PF) 10 ML VIAL ONE (10:27)
[2020-10-30] MEDS ORDERED: fentaNYL (PF) 50 MCG/ML 2 ML AMP ONE (10:27)
[2020-10-30] MEDS ORDERED: VECURONIUM 10 MG VIAL IV ONE (10:27)
[2020-10-30] MEDS ORDERED: GLYCOPYRROLATE 0.2 MG/ML 2 ML VIAL ONE (10:27)
[2020-10-30] MEDS ORDERED: MIDAZOLAM 2 MG/2 ML VIAL ONE (10:27)
[2020-10-30] MEDS ORDERED: LIDOCAINE 1% INJ 10MG/ML (20 ML MDV) ONE (10:27)
[2020-10-30] MEDS ORDERED: SUCCINYLCHOLINE CHLORIDE VIAL 200 MG/10 ML VIAL IV ONE (10:27)
[2020-10-30] MEDS ORDERED: NEOSTIGMINE 1 MG/ML 10 ML VIAL ONE (10:27)
[2020-10-30] MEDS ORDERED: HYDROmorphone (PF) 1 MG/ML ONE (10:27)
[2020-10-30] MEDS ORDERED: PHENYLEPHRINE-0.9% NACL SYG 1,000 MCG/10 ML SYRINGE ONE (10:27)
[2020-10-30] MEDS ORDERED: ROPIVACAINE 5 MG/ML 30 ML VIAL ONE (10:27)
--- NOTE | 2020-10-30 10:49 | P.ANPRN ---
Procedure Note - Anesthesia - Nerve Block Performed Bilateral Erector Spinae Single Time Out Performed: Yes ([id number]) Date of Procedure: 10/30/20 Procedure Start Time: 09:49 Procedure Stop Time: 09:54 Location of Patient: PreOp Indication: Acute Post-Operative Pain, Requested by Surgeon Specifically requested for management of pain by : Lizet Steele Sedation Type: Sedate with meaningful contact maintained Preparation: Sterile Prep Position: Prone Catheter: None Needle Types: Pajunk Needle Gauge: 21 Ultrasound used to visualize needle placement: Yes Ultrasound used to observe medication spread: Yes Injectate: 0.5% Ropivacaine (see comment for volume) (15cc + 15cc nACL PF each side) Blood Aspirated: No Pain Paresthesia on Injection Noted: No Resistance on Injection: Normal Image Stored and Saved: Yes Events: Uneventful and Well Tolerated
[2020-10-30] MEDS ORDERED: LIDOCAINE 1% INJ 10MG/ML (20 ML MDV) SQ ONE (10:55)
[2020-10-30] MEDS ORDERED: LACTATED RINGERS 1,000 ML IV ONE (12:16)
[2020-10-30 12:25] VITALS: TEMP 98
[2020-10-30] MEDS: HYDROmorphone 0.5 MG/0.5 ML SYRINGE IVP PRN ×4 (12:35→13:12)
[2020-10-30] MEDS ORDERED: SIMETHICONE 80 MG CHEWABLE PO ONE (13:50)
[2020-10-30 14:54] VITALS: BP 145/80; PULSE 63
--- NOTE | 2020-10-30 19:32 | P.OP ---
Date of Procedure: 10/30/20 Description of Procedure: SURGEON: LIZET STEELE MD PREOPERATIVE DIAGNOSES: 1. Recurrent small bowel obstruction 2. Obstructive uropathy due to prostatic enlargement 3. Osteoarthritis of the lower back 4. Gastroesophageal reflux disease 5. Chronic pain syndrome POSTOPERATIVE DIAGNOSES: 1. 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 Obstructive uropathy due to prostatic enlargement 3. Osteoarthritis of the lower back 4. Gastroesophageal reflux disease 5. Chronic pain syndrome 6. Severe right lower quadrant intraloop adhesions OPERATION: 1. Robotic-assisted da Shadia Xi laparoscopic with lysis of adhesions over 1 hour ESTIMATED BLOOD LOSS: 10 mL. SPECIMENS REMOVED: None. COMPLICATIONS: None. OPERATIVE FINDINGS: 1. No recurrent right inguinal hernia or adhesions from hernia surgery 2. Severe interloop and intermesenteric adhesions involving the distal terminal ileum over 2 feet completely lysed INDICATIONS: The patient is a 64-year-old female who presents with intermittent abdominal pain and small bowel obstruction. Surgical intervention with diagnostic laparoscopy, lysis of adhesions were described. Informed consent was obtained. Robotic assisted laparoscopic approach was described. Benefits and risks of the procedure including but not limited to bleeding, infection was described. Informed consent was obtained. DESCRIPTION OF PROCEDURE: Patient was brought to the operating room, placed in supine position. After general induction, the abdomen had been prepped and draped in standard sterile fashion. The robotic da Shadia XI system was primed. After a timeout protocol was performed, the patient had been prepped and draped in standard sterile fashion. The robot was docked along the left lateral abdomen. Please note prior to docking of the robot; however, a 5 mm 0 degrees laparoscopic trocar entry was performed along the left upper quadrant. Next, three 8 mm robotic ports were placed along the upper abdomen. Trochars were placed at least 10 to 15 cm away from the target anatomy. Instruments including graspers and vessel sealer were interchanged by the emergency medicine physician assistant. I had sat at the console. No abdominal wall adhesions were found involving the right inguinal hernia repair. The appendix was within normal limits. Left inguinal area was scarred by the sigmoid colon. The cecum was within normal limits. Severe interloop and intermesenteric adhesions were found involving the distal terminal ileum at least 2 feet. Extensive lysis of adhesions were performed using vessel sealer including blunt dissection for over one hour. Hemostasis was checked. The sigmoid colon was highly redundant. No large or small bowel obstruction was identified. The robot was undocked. All pneumoperitoneum and instruments were evacuated from the abdominal cavity. The incisions were reapproximated using 4-0 Monocryl in an interrupted subcuticular fashion. Please note along the trocar sites, local anesthetic was placed as a field block prior to insertion of all instruments. Exofin was applied to the skin. At the end of the procedure needle, sponge, and instrument count had been verified correct by the surgical processor. The patient was transferred to postanesthesia care unit in stable condition. Plan - Discharge Summary Discharge Rx Participant: Yes New Discharge Prescriptions: New Ibuprofen [Motrin] 600 mg PO Q8HR PRN #30 tab PRN Reason: Pain Acetaminophen Tab [Tylenol Tab] 1,000 mg PO Q6HR PRN #30 tablet PRN Reason: Pain Simethicone [Gas-X] 125 mg PO AC-TID PRN #20 cap PRN Reason: Pain Continue Zolpidem Tartrate [Ambien] 10 mg PO HS PRN PRN Reason: SLEEP oxyCODONE-APAP 10-325MG [Percocet 10-325 mg] 1 tab PO QID PRN PRN Reason: Pain carisoprodoL [Soma] 350 mg PO QID PRN PRN Reason: Pain Multivitamin [Men's Multi-Vitamin] 1 tab PO DAILY Cetirizine HCl [Zyrtec] 10 mg PO BID Dutasteride [Avodart] 0.5 mg PO QAM Pantoprazole Sodium [Protonix] 40 mg PO QAM Iron Tab 27 mg PO DAILY Tamsulosin [Flomax] 0.8 mg PO 1600 Tadalafil [Cialis] 5 mg PO DAILY PRN PRN Reason: E.D. Discharge Medication List Zolpidem Tartrate [Ambien] 10 mg PO HS PRN 02/17/14 [History] oxyCODONE-APAP 10-325MG [Percocet 10-325 mg] 1 tab PO QID PRN 05/31/14 [History] carisoprodoL [Soma] 350 mg PO QID PRN 07/04/16 [History] Multivitamin [Men's Multi-Vitamin] 1 tab PO DAILY 10/14/16 [History] Cetirizine HCl [Zyrtec] 10 mg PO BID 01/15/18 [History] Dutasteride [Avodart] 0.5 mg PO QAM 03/16/20 [History] Iron Tab 27 mg PO DAILY 03/16/20 [History] Pantoprazole Sodium [Protonix] 40 mg PO QAM 03/16/20 [History] Tadalafil [Cialis] 5 mg PO DAILY PRN 03/29/20 [History] Tamsulosin [Flomax] 0.8 mg PO 1600 03/29/20 [History] Acetaminophen Tab [Tylenol Tab] 1,000 mg PO Q6HR PRN #30 tablet 10/30/20 [Rx] Ibuprofen [Motrin] 600 mg PO Q8HR PRN #30 tab 10/30/20 [Rx] Simethicone [Gas-X] 125 mg PO AC-TID PRN #20 cap 10/30/20 [Rx] Follow up Appointment(s)/Referral(s): Lizet Steele MD [STAFF PHYSICIAN] - 10/31/20 10:00 am Patient Instructions/Handouts: *Surgery [facility] - Anesthesia Discharge Instructions, Lysis of Abdominal Adhesions (IP) Activity/Diet/Wound Care/Special Instructions: CONTACT YOUR PAIN SPECIALIST FOR NARCOTICS. Recommend liquid diet today. No lifting over 10 pounds in 2 weeks until Nov 13. May shower. No bath tub soaks for two weeks until Nov 13. Diet as tolerated. Use Tylenol, simethicone and ibuprofen or Aleve scheduled for the next 24-48 hours for best pain relief. Use ice along incisions for today to prevent swelling. Discharge Disposition: HOME SELF-CARE
== END 2020-10-30 16:05 | disposition home or self-care (01) ==
LOC: OR 08:42
PROVIDERS: ATTEND Surgery Plastic and Reconstructive Surgery
DX: K56.50 Intestinal adhesions [bands], unspecified as to partial versus complete obstruction (principal); N40.1 Benign prostatic hyperplasia with lower urinary tract symptoms; N13.8 Other obstructive and reflux uropathy; K21.9 Gastro-esophageal reflux disease without esophagitis; G89.4 Chronic pain syndrome; M47.816 Spondylosis without myelopathy or radiculopathy, lumbar region; H91.90 Unspecified hearing loss, unspecified ear; M54.9 Dorsalgia, unspecified; Z79.899 Other long term (current) drug therapy
CPT/HCPCS: 44180; S2900; 64999

== ENCOUNTER 2020-11-09 04:06 | Emergency (ER) | payer MEDICARE, OTHER ==
[2020-11-09 04:11] VITALS: TEMP 97.6
--- NOTE | 2020-11-09 04:49 | XR ---
EXAMINATION TYPE: XR KUB DATE OF EXAM: 11/09/2020 COMPARISON: 05/07/2015 HISTORY: Abdominal pain TECHNIQUE: 2 views FINDINGS: 2 views upright show some distended small bowel with fluid levels in the upper abdomen. The re is multilevel fusion surgery in the lumbar spine. Lung bases are clear. There are no pathologic ca lcifications over the kidneys. IMPRESSION: Small bowel distention that could relate to ileus or partial mechanical small bowel obstr uction. This appears new compared to old exam.
[2020-11-09] MEDS ORDERED: MORPHINE SULFATE 4 MG/ML SYRINGE IV STA (04:53)
[2020-11-09 05:29] LABS: Basophils % (A) 0 %; Eosinophils # (A) 0.3 k/uL (0-0.7); Eosinophils % (A) 4 %; HCT 40.8 % (39.0-53.0); HGB 12.9 gm/dL (13.0-17.5); Lymphocytes # (A) 2.2 k/uL (1.0-4.8); Lymphocytes % (A) 31 %; MCH 27.6 pg (25.0-35.0); MCHC 31.5 g/dL (31.0-37.0); MCV 87.6 fL (80.0-100.0); Mean Platelet Volume 8.8; Monocytes # (A) 0.5 k/uL (0-1.0); Monocytes % (A) 6 %; Neutrophils # (A) 4.1 k/uL (1.3-7.7); Neutrophils % (A) 58 %; Platelet Count 185 k/uL (150-450); RBC 4.66 m/uL (4.30-5.90)
[2020-11-09 05:44] LABS: Albumin 3.5 g/dL (3.5-5.0); Potassium 3.9 mmol/L (3.5-5.1); Total Bilirubin 0.5 mg/dL (0.2-1.3); Total Protein 6.6 g/dL (6.3-8.2)
[2020-11-09] MEDS ORDERED: HYDROmorphone 1 MG/ML 1 ML SYRINGE IVP STA (06:05)
[2020-11-09] MEDS ORDERED: ONDANSETRON 4 MG/2 ML VIAL IVP STA (06:05)
[2020-11-09] MEDS ORDERED: KETOROLAC 15 MG/ML 1 ML VIAL IVP STA (06:54)
[2020-11-09 06:55] VITALS: BP 111/69; PULSE 66; RESP 19
--- NOTE | 2020-11-09 06:57 | ED ---
Abdominal Pain HPI - General Chief Complaint: Abdominal Pain Stated Complaint: Abd Pain Time Seen by Provider: 11/09/20 04:14 Source: patient Mode of arrival: ambulatory Limitations: no limitations - History of Present Illness Initial Comments: This patient is a 65-year-old man complains of diffuse bloating/cramping abdominal pain that is been getting worse the past few hours. Patient states that the symptoms feel identical to previous bowel obstruction that he had. He states that it was probably a couple weeks ago and he is treated with a surgery a week [facility], by Dr. Steele. The patient has not had vomiting. There is a little bit nausea. No fever or chills. No change in bowel movements or urination MD Complaint: abdominal pain -: hour(s) Location: diffuse Migration to: no migration Severity: moderate Quality: cramping, aching Consistency: constant Improves With: nothing Worsens With: nothing Associated Symptoms: nausea - Related Data Home Medications Medication Instructions Recorded Confirmed Zolpidem Tartrate [Ambien] 10 mg PO HS PRN 02/17/14 10/30/20 oxyCODONE-APAP 10-325MG [Percocet 1 tab PO QID PRN 05/31/14 10/30/20 10-325 mg] carisoprodoL [Soma] 350 mg PO QID PRN 07/04/16 10/30/20 Multivitamin [Men's Multi-Vitamin] 1 tab PO DAILY 10/14/16 10/27/20 Cetirizine HCl [Zyrtec] 10 mg PO BID 01/15/18 10/30/20 Dutasteride [Avodart] 0.5 mg PO QAM 03/16/20 10/30/20 Iron Tab 27 mg PO DAILY 03/16/20 10/27/20 Pantoprazole Sodium [Protonix] 40 mg PO QAM 03/16/20 10/30/20 Tadalafil [Cialis] 5 mg PO DAILY PRN 03/29/20 10/30/20 Tamsulosin [Flomax] 0.8 mg PO 1600 03/29/20 10/30/20 Previous Rx's Medication Instructions Recorded Acetaminophen Tab [Tylenol Tab] 1,000 mg PO Q6HR PRN #30 tablet 10/30/20 Ibuprofen [Motrin] 600 mg PO Q8HR PRN #30 tab 10/30/20 Simethicone [Gas-X] 125 mg PO AC-TID PRN #20 cap 10/30/20 Allergies Allergy/AdvReac Type Severity Reaction Status Date / Time No Known Allergies Allergy Verified 11/09/20 04:11 Review of Systems ROS Statement: Those systems with pertinent positive or pertinent negative responses have been documented in the HPI. ROS Other: All systems not noted in ROS Statement are negative. Constitutional: Denies: fever, chills Respiratory: Denies: cough, dyspnea Cardiovascular: Denies: chest pain, palpitations Gastrointestinal: Reports: abdominal pain, nausea. Denies: vomiting, diarrhea, constipation, melena, hematochezia Genitourinary: Denies: dysuria, hematuria, testicular pain Musculoskeletal: Denies: back pain Skin: Denies: rash Neurological: Denies: headache, weakness, numbness Past Medical History Past Medical History: GERD/Reflux, Hearing Disorder / Deafness, Osteoarthritis (OA), Prostate Disorder Additional Past Medical History / Comment(s): Deaf in right ear, BACK PAIN, DJD, enlarged prostate, just d/c from [facility] for abd. pain related to surgery scheduled, feels better, bowel obstruction History of Any Multi-Drug Resistant Organisms: MRSA Date of last positivie culture/infection: 2014 MDRO Source:: nose Past Surgical History: Back Surgery, Hernia Repair, Joint Replacement, Orthopedic Surgery Additional Past Surgical History / Comment(s): Back surgery 03-22-20, right knee replacement, right hip replacement, left hip replacement X2, PAIN PROCEDURES, COLLARBONE REPAIRED, right inguinal repair. Past Anesthesia/Blood Transfusion Reactions: No Reported Reaction Additional Past Anesthesia/Blood Transfusion Reaction / Comment(s): No hx blood transfusion. Past Psychological History: No Psychological Hx Reported Smoking Status: Never smoker Past Alcohol Use History: Occasional Past Drug Use History: None Reported - Past Family History Father Family Medical History: Congestive Heart Failure (CHF) Brother(s) Family Medical History: Deep Vein Thrombosis (DVT) General Exam Limitations: no limitations General appearance: alert, in no apparent distress Head exam: Present: atraumatic, normocephalic Eye exam: Present: normal appearance. Absent: scleral icterus, conjunctival injection ENT exam: Present: normal oropharynx Neck exam: Present: normal inspection Respiratory exam: Present: normal lung sounds bilaterally. Absent: respiratory distress, wheezes, rales, rhonchi, stridor Cardiovascular Exam: Present: regular rate, normal rhythm, normal heart sounds. Absent: systolic murmur, diastolic murmur, rubs, gallop GI/Abdominal exam: Present: soft, distended, hypoactive bowel sounds. Absent: tenderness, guarding, rebound, rigid, mass, pulsatile mass, hernia Extremities exam: Present: normal inspection Back exam: Present: normal inspection. Absent: CVA tenderness (R), CVA tenderness (L) Neurological exam: Present: alert Skin exam: Present: warm, dry, intact, normal color. Absent: rash Course Vital Signs 11/09/20 11/09/20 04:09 06:55 Temperature 97.6 F Pulse Rate 77 66 Respiratory 20 19 Rate Blood Pressure 135/84 111/69 O2 Sat by Pulse 99 98 Oximetry Medical Decision Making - Lab Data Result diagrams: 11/09/20 04:40 11/09/20 04:40 Lab Results 11/09/20 11/09/20 Range/Units 04:40 04:40 WBC 7.0 (3.8-10.6) k/uL RBC 4.66 (4.30-5.90) m/uL Hgb 12.9 L (13.0-17.5) gm/dL Hct 40.8 (39.0-53.0) % MCV 87.6 (80.0-100.0) fL MCH 27.6 (25.0-35.0) pg MCHC 31.5 (31.0-37.0) g/dL RDW 16.0 H (11.5-15.5) % Plt Count 185 (150-450) k/uL MPV 8.8 Neutrophils % 58 % Lymphocytes % 31 % Monocytes % 6 % Eosinophils % 4 % Basophils % 0 % Neutrophils # 4.1 (1.3-7.7) k/uL Lymphocytes # 2.2 (1.0-4.8) k/uL Monocytes # 0.5 (0-1.0) k/uL Eosinophils # 0.3 (0-0.7) k/uL Basophils # 0.0 (0-0.2) k/uL Sodium 138 (137-145) mmol/L Potassium 3.9 (3.5-5.1) mmol/L Chloride 110 H (98-107) mmol/L Carbon Dioxide 19 L (22-30) mmol/L Anion Gap 9 mmol/L BUN 24 H (9-20) mg/dL Creatinine 1.15 (0.66-1.25) mg/dL Est GFR (CKD-EPI)AfAm 78 (>60 ml/min/1.73 sqM) Est GFR (CKD-EPI)NonAf 67 (>60 ml/min/1.73 sqM) Glucose 130 H (74-99) mg/dL Calcium 9.0 (8.4-10.2) mg/dL Total Bilirubin 0.5 (0.2-1.3) mg/dL AST 28 (17-59) U/L ALT 19 (4-49) U/L Alkaline Phosphatase 105 (38-126) U/L Total Protein 6.6 (6.3-8.2) g/dL Albumin 3.5 (3.5-5.0) g/dL Amylase 53 (30-110) U/L Lipase 21 L (23-300) U/L Disposition Clinical Impression: Ileus Disposition: HOME SELF-CARE Condition: Good Instructions (If sedation given, give patient instructions): Ileus (ED) Is patient prescribed a controlled substance at d/c from ED?: No Referrals: Shaun Wang MD [Primary Care Provider] - 1-2 days Lizet Steele MD [STAFF PHYSICIAN] - 1-2 days
== END 2020-11-09 07:24 | disposition home or self-care (01) ==
LOC: EC 04:06
DX: K56.7 Ileus, unspecified (principal); K21.9 Gastro-esophageal reflux disease without esophagitis; M19.90 Unspecified osteoarthritis, unspecified site; Z79.1 Long term (current) use of non-steroidal anti-inflammatories (NSAID); Z82.49 Family history of ischemic heart disease and other diseases of the circulatory system
CPT/HCPCS: 80053; 82150; 83690; 85025; 74018; 96374; 96375 ×3; 99284; J2270; J2405; J1170; J1885

== ENCOUNTER 2020-11-10 05:45 | Inpatient (IN) | payer MEDICARE, OTHER ==
[2020-11-10] MEDS ORDERED: SODIUM CHLORIDE 0.9% 1,000 ML IV STA (06:04)
[2020-11-10] MEDS ORDERED: HYDROmorphone 1 MG/ML 1 ML SYRINGE IVP STA (06:04)
[2020-11-10] MEDS ORDERED: NALOXONE 0.4 MG/ML 1 ML VIAL IV PRN (06:15)
[2020-11-10 06:50] LABS: Basophils % (A) 0 %; Eosinophils # (A) 0.3 k/uL (0-0.7); Eosinophils % (A) 4 %; HCT 44.7 % (39.0-53.0); Lymphocytes % (A) 29 %; MCH 27.6 pg (25.0-35.0); MCHC 31.3 g/dL (31.0-37.0); MCV 88.2 fL (80.0-100.0); Mean Platelet Volume 8.9; Monocytes # (A) 0.5 k/uL (0-1.0); Monocytes % (A) 7 %; Neutrophils % (A) 58 %; Platelet Count 200 k/uL (150-450); RBC 5.06 m/uL (4.30-5.90); RDW 15.8 % (11.5-15.5); WBC 6.9 k/uL (3.8-10.6)
--- NOTE | 2020-11-10 07:04 | ED ---
Abdominal Pain HPI - General Source: patient, RN notes reviewed Mode of arrival: ambulatory Limitations: no limitations <Garrett Diehl - Last Filed: 11/10/20 07:01> <José Miguel Meeks - Last Filed: 11/14/20 23:21> - General Chief Complaint: Abdominal Pain Stated Complaint: Abdominal pain - History of Present Illness Initial Comments: Patient is a 65-year-old male that presents to the emergency department complaining of abdominal pain. He notes he was seen yesterday in the ER for the same complaint on x-ray that showed an ileus versus a small bowel obstruction. He was instructed to follow-up with Dr. Steele outpatient. He notes that he was scheduled for a upper endoscopy study today with Dr. Cantor a.mKey but could not wait due to pain. Patient recently had a small bowel obstruction surgery approximately [address] Steele. He notes he woke up this morning around 6:00 with pain. He denied any nausea vomiting. He denied any chest pain shortness of breath headache diarrhea constipation fever fatigue chills. (Garrett Diehl) - Related Data Home Medications Medication Instructions Recorded Confirmed Zolpidem Tartrate [Ambien] 10 mg PO HS PRN 02/17/14 11/10/20 oxyCODONE-APAP 10-325MG [Percocet 1 tab PO QID PRN 05/31/14 11/10/20 10-325 mg] carisoprodoL [Soma] 350 mg PO QID PRN 07/04/16 11/10/20 Multivitamin [Men's Multi-Vitamin] 1 tab PO DAILY 10/14/16 11/10/20 Cetirizine HCl [Zyrtec] 10 mg PO BID 01/15/18 11/10/20 Dutasteride [Avodart] 0.5 mg PO QAM 03/16/20 11/10/20 Iron Tab 27 mg PO DAILY 03/16/20 11/10/20 Pantoprazole Sodium [Protonix] 40 mg PO QAM 03/16/20 11/10/20 Tadalafil [Cialis] 5 mg PO DAILY PRN 03/29/20 11/10/20 Tamsulosin [Flomax] 0.8 mg PO DAILY@1600 03/29/20 11/10/20 Previous Rx's Medication Instructions Recorded Acetaminophen Tab [Tylenol Tab] 1,000 mg PO Q6HR PRN #30 tablet 10/30/20 Ibuprofen [Motrin] 600 mg PO Q8HR PRN #30 tab 10/30/20 Simethicone [Gas-X] 125 mg PO AC-TID PRN #20 cap 10/30/20 Allergies Allergy/AdvReac Type Severity Reaction Status Date / Time No Known Allergies Allergy Verified 11/10/20 07:36 Review of Systems ROS Other: All systems not noted in ROS Statement are negative. <Garrett Diehl - Last Filed: 11/10/20 07:01> ROS Other: All systems not noted in ROS Statement are negative. <José Miguel Meeks - Last Filed: 11/14/20 23:21> ROS Statement: Those systems with pertinent positive or pertinent negative responses have been documented in the HPI. Past Medical History Past Medical History: GERD/Reflux, Hearing Disorder / Deafness, Osteoarthritis (OA), Prostate Disorder Additional Past Medical History / Comment(s): Deaf in right ear, BACK PAIN, DJD, enlarged prostate, just d/c from [facility] for abd. pain related to surgery scheduled, feels better, bowel obstruction History of Any Multi-Drug Resistant Organisms: MRSA Date of last positivie culture/infection: 2014 MDRO Source:: nose Past Surgical History: Back Surgery, Hernia Repair, Joint Replacement, Orthopedic Surgery Additional Past Surgical History / Comment(s): Back surgery 03-22-20, right knee replacement, right hip replacement, left hip replacement X2, PAIN PROCEDURES, COLLARBONE REPAIRED, right inguinal repair. Past Anesthesia/Blood Transfusion Reactions: No Reported Reaction Additional Past Anesthesia/Blood Transfusion Reaction / Comment(s): No hx blood transfusion. Past Psychological History: No Psychological Hx Reported Smoking Status: Never smoker Past Alcohol Use History: Occasional Past Drug Use History: None Reported - Past Family History Father Family Medical History: Congestive Heart Failure (CHF) Brother(s) Family Medical History: Deep Vein Thrombosis (DVT) <Garrett Diehl - Last Filed: 11/10/20 07:01> General Exam Limitations: no limitations General appearance: alert, in no apparent distress Head exam: Present: atraumatic, normocephalic, normal inspection Eye exam: Present: normal appearance, PERRL, EOMI. Absent: scleral icterus, conjunctival injection, periorbital swelling ENT exam: Present: normal exam, mucous membranes moist Neck exam: Present: normal inspection Respiratory exam: Present: normal lung sounds bilaterally. Absent: respiratory distress, wheezes, rales, rhonchi, stridor Cardiovascular Exam: Present: regular rate, normal rhythm, normal heart sounds. Absent: systolic murmur, diastolic murmur, rubs, gallop, clicks GI/Abdominal exam: Present: soft, distended, tenderness, diminished bowel sounds. Absent: guarding, rebound, rigid Extremities exam: Present: normal inspection, full ROM, normal capillary refill. Absent: tenderness, pedal edema, joint swelling, calf tenderness Neurological exam: Present: alert, oriented X3 Psychiatric exam: Present: normal affect, normal mood Skin exam: Present: warm, dry, intact, normal color. Absent: rash <Garrett Diehl - Last Filed: 11/10/20 07:01> Course Vital Signs 11/10/20 11/10/20 05:49 07:35 Temperature 97.8 F Pulse Rate 70 58 L Respiratory 18 18 Rate Blood Pressure 164/83 129/75 O2 Sat by Pulse 97 98 Oximetry Medical Decision Making - Lab Data Result diagrams: 11/10/20 06:25 <Garrett Diehl - Last Filed: 11/10/20 07:01> - Lab Data Result diagrams: 11/14/20 05:29 11/14/20 05:29 <José Miguel Meeks - Last Filed: 11/14/20 23:21> - Medical Decision Making 65-year-old male complaining of abdominal pain, recent history of small bowel obstruction surgery area 1 L normal saline, 1 mg of Dilaudid, basic labs ordered. Dr. Steele consulted and will accept the admit directly to her. Case discussed with Dr. Meeks, patient will be admitted. (Garrett Diehl) I saw this patient in conjunction with the physician bilingual sales assistant. I performed independent history and physical exam. Agree with case management. (José Miguel Meeks) - Lab Data Lab Results 11/10/20 11/10/20 Range/Units 06:25 06:25 WBC 6.9 (3.8-10.6) k/uL RBC 5.06 (4.30-5.90) m/uL Hgb 14.0 (13.0-17.5) gm/dL Hct 44.7 (39.0-53.0) % MCV 88.2 (80.0-100.0) fL MCH 27.6 (25.0-35.0) pg MCHC 31.3 (31.0-37.0) g/dL RDW 15.8 H (11.5-15.5) % Plt Count 200 (150-450) k/uL MPV 8.9 Neutrophils % 58 % Lymphocytes % 29 % Monocytes % 7 % Eosinophils % 4 % Basophils % 0 % Neutrophils # 4.0 (1.3-7.7) k/uL Lymphocytes # 2.0 (1.0-4.8) k/uL Monocytes # 0.5 (0-1.0) k/uL Eosinophils # 0.3 (0-0.7) k/uL Basophils # 0.0 (0-0.2) k/uL Sodium 139 (137-145) mmol/L Potassium 3.7 (3.5-5.1) mmol/L Chloride 109 H (98-107) mmol/L Carbon Dioxide 23 (22-30) mmol/L Anion Gap 7 mmol/L BUN 25 H (9-20) mg/dL Creatinine 1.21 (0.66-1.25) mg/dL Est GFR (CKD-EPI)AfAm 73 (>60 ml/min/1.73 sqM) Est GFR (CKD-EPI)NonAf 63 (>60 ml/min/1.73 sqM) Glucose 121 H (74-99) mg/dL Calcium 9.4 (8.4-10.2) mg/dL Total Bilirubin 0.5 (0.2-1.3) mg/dL AST 24 (17-59) U/L ALT 19 (4-49) U/L Alkaline Phosphatase 103 (38-126) U/L Total Protein 6.6 (6.3-8.2) g/dL Albumin 3.5 (3.5-5.0) g/dL Disposition Is patient prescribed a controlled substance at d/c from ED?: No Time of Disposition: 07:03 <Garrett Diehl - Last Filed: 11/10/20 07:01> <José Miguel Meeks - Last Filed: 11/14/20 23:21> Clinical Impression: Small bowel obstruction Disposition: ADMITTED IP TO THIS HOSP Condition: Stable
[2020-11-10 07:20] LABS: Albumin 3.5 g/dL (3.5-5.0); Calcium 9.4 mg/dL (8.4-10.2); Potassium 3.7 mmol/L (3.5-5.1); Total Bilirubin 0.5 mg/dL (0.2-1.3); Total Protein 6.6 g/dL (6.3-8.2)
--- NOTE | 2020-11-10 08:01 | P.GSHP ---
History of Present Illness H&P Date: 11/10/20 CHIEF COMPLAINT: Small bowel obstruction HISTORY OF PRESENT ILLNESS: The patient is a 65 year old male who comes in with recurrent small bowel obstruction. He had recent lysis of adhesions 2 weeks ago. He went to emergency room yesterday morning and felt well after medications. He was seen in the office after his ER visit yesterday. Patient reports doing well until he had toast and eggs yesterday afternoon. Twelve (12) hours later, he woke up in the middle night with 10 out of 10 diffuse abdominal pain. Last bowel movement was 2 days ago. He reports no passage of flatus today. Patient comes in for recurrent small bowel obstruction. PAST MEDICAL HISTORY: See list and reviewed PAST SURGICAL HISTORY: See list and reviewed MEDICATIONS: See list and reviewed ALLERGIES: See list and reviewed SOCIAL HISTORY: See list and reviewed FAMILY HISTORY: See list and reviewed REVIEW OF ORGAN SYSTEMS: CONSTITUTIONAL: No fevers or chills. No recent weight loss. EYES: Denies any trouble with vision. Wears glasses. HEENT: No difficulties with hearing. No nosebleeds. No difficulty swallowing. RESPIRATORY: Denies pneumonia. Denies any troubles with breathing or dyspnea on exertion. CARDIOVASCULAR: Denies any chest pain, palpitations, or recent heart attacks. GASTROINTESTINAL: Had colonoscopy this year. Recurrent small bowel obstructions. History of right inguinal hernia repair with bowel obstruction. GENITOURINARY: Denies any blood in urine or increased urinary frequency. NEUROLOGICAL: Denies any numbness or tingling along the distal extremities. No seizure disorders or headaches. MUSCULOSKELETAL: Has back pain, stiffness or joint arthritis. SKIN: No current skin cancer. No rash. PSYCHIATRIC: Denies current depression or suicidal thoughts. ENDOCRINE: Denies current thyroid disorders. Denies any blood sugar glucose intolerance. HEME/LYMPHATIC: Denies any lumps and bumps around the neck. No recent deep venous thrombosis. ALLERGY/IMMUNOLOGY: No immunoglobulin therapy. No immune deficiencies. BREAST: Denies current breast lumps, pain or nipple discharge. PHYSICAL EXAM: VITALS: Reviewed CONSTITUTIONAL: Well developed and in no acute distress. EYES: Conjuctivae without sclera icterus. Extraocular movements grossly intact. HEAD, EARS, NOSE, THROAT: Moist buccal mucosa. Head is atraumatic, normocephalic. Hears conversational speech. No nasal drainage. NECK: Supple. No JV distention. No thyroidomegaly. RESPIRATORY: Non-labored respirations and equal bilateral excursions. No gross wheezes. CARDIOVASCULAR: Regular rate and rhythm. Extremities without moderate edema. Palpable 2+ radial pulses. ABDOMEN: Firm, diffusely tender. No peritonitis. LYMPH: No neck lymphadenopathy. MUSCULOSKELETAL: Nail and fingers with good capillary refill. SKIN: Warm and well perfused with good skin turgor. NEUROLOGIC: Cranial nerves II through XII grossly intact. Sensation upper and extremities intact. No focal or lateralizing signs. PSYCH: Appropriate affect. Alert and oriented to person, place and time. Displays appropriate insight. CLINCAL LABS: Reviewed. WBC normal. Electrolytes normal. IMAGING: Abdominal x-ray yesterday reviewed demonstrating air-fluid levels. Positive gas in the rectum. RADIOLOGY: Report reviewedSutures of ileus versus early small bowel obstruction. RECORDS: previous old records reviewed ASSESSMENT: 1. Recurrent small bowel obstruction PLAN: 1. Will proceed with small bowel series as an may have intraluminal web causing small bowel obstruction. 2. IV fluid hydration Past Medical History Past Medical History: GERD/Reflux, Hearing Disorder / Deafness, Osteoarthritis (OA), Prostate Disorder Additional Past Medical History / Comment(s): Deaf in right ear, BACK PAIN, DJD, enlarged prostate, just d/c from [facility] for abd. pain related to surgery scheduled, feels better, bowel obstruction History of Any Multi-Drug Resistant Organisms: MRSA Date of last positivie culture/infection: 2014 MDRO Source:: nose Past Surgical History: Back Surgery, Hernia Repair, Joint Replacement, Orthopedic Surgery Additional Past Surgical History / Comment(s): Back surgery 2-3-21, right knee replacement, right hip replacement, left hip replacement X2, PAIN PROCEDURES, COLLARBONE REPAIRED, right inguinal repair. Past Anesthesia/Blood Transfusion Reactions: No Reported Reaction Additional Past Anesthesia/Blood Transfusion Reaction / Comment(s): No hx blood transfusion. Past Psychological History: No Psychological Hx Reported Smoking Status: Never smoker Past Alcohol Use History: Occasional Past Drug Use History: None Reported - Past Family History Father Family Medical History: Congestive Heart Failure (CHF) Brother(s) Family Medical History: Deep Vein Thrombosis (DVT) Medications and Allergies Home Medications Medication Instructions Recorded Confirmed Type Zolpidem Tartrate [Ambien] 10 mg PO HS PRN 02/17/14 11/10/20 History oxyCODONE-APAP 10-325MG [Percocet 1 tab PO QID PRN 05/31/14 11/10/20 History 10-325 mg] carisoprodoL [Soma] 350 mg PO QID PRN 07/04/16 11/10/20 History Multivitamin [Men's Multi-Vitamin] 1 tab PO DAILY 10/14/16 11/10/20 History Cetirizine HCl [Zyrtec] 10 mg PO BID 01/15/18 11/10/20 History Dutasteride [Avodart] 0.5 mg PO QAM 03/16/20 11/10/20 History Iron Tab 27 mg PO DAILY 03/16/20 11/10/20 History Pantoprazole Sodium [Protonix] 40 mg PO QAM 03/16/20 11/10/20 History Tadalafil [Cialis] 5 mg PO DAILY PRN 03/29/20 11/10/20 History Tamsulosin [Flomax] 0.8 mg PO DAILY@1600 03/29/20 11/10/20 History Acetaminophen Tab [Tylenol Tab] 1,000 mg PO Q6HR PRN #30 tablet 10/30/20 11/10/20 Rx Ibuprofen [Motrin] 600 mg PO Q8HR PRN #30 tab 10/30/20 11/10/20 Rx Simethicone [Gas-X] 125 mg PO AC-TID PRN #20 cap 10/30/20 11/10/20 Rx Allergies Allergy/AdvReac Type Severity Reaction Status Date / Time No Known Allergies Allergy Verified 11/10/20 07:36 Surgical - Exam Vital Signs Temp Pulse Resp BP Pulse Ox 97.8 F 70 18 164/83 97 11/10/20 05:49 11/10/20 05:49 11/10/20 05:49 11/10/20 05:49 11/10/20 05:49 Results - Labs 11/10/20 06:25 11/10/20 06:25 Abnormal Lab Results - Last 24 Hours (Table) 11/10/20 11/10/20 Range/Units 06:25 06:25 RDW 15.8 H (11.5-15.5) % Chloride 109 H (98-107) mmol/L BUN 25 H (9-20) mg/dL Glucose 121 H (74-99) mg/dL Diabetes panel 11/10/20 Range/Units 06:25 Sodium 139 (137-145) mmol/L Potassium 3.7 (3.5-5.1) mmol/L Chloride 109 H (98-107) mmol/L Carbon Dioxide 23 (22-30) mmol/L BUN 25 H (9-20) mg/dL Creatinine 1.21 (0.66-1.25) mg/dL Glucose 121 H (74-99) mg/dL Calcium 9.4 (8.4-10.2) mg/dL AST 24 (17-59) U/L ALT 19 (4-49) U/L Alkaline Phosphatase 103 (38-126) U/L Total Protein 6.6 (6.3-8.2) g/dL Albumin 3.5 (3.5-5.0) g/dL Calcium panel 11/10/20 Range/Units 06:25 Calcium 9.4 (8.4-10.2) mg/dL Albumin 3.5 (3.5-5.0) g/dL Pituitary panel 11/10/20 Range/Units 06:25 Sodium 139 (137-145) mmol/L Potassium 3.7 (3.5-5.1) mmol/L Chloride 109 H (98-107) mmol/L Carbon Dioxide 23 (22-30) mmol/L BUN 25 H (9-20) mg/dL Creatinine 1.21 (0.66-1.25) mg/dL Glucose 121 H (74-99) mg/dL Calcium 9.4 (8.4-10.2) mg/dL Adrenal panel 11/10/20 Range/Units 06:25 Sodium 139 (137-145) mmol/L Potassium 3.7 (3.5-5.1) mmol/L Chloride 109 H (98-107) mmol/L Carbon Dioxide 23 (22-30) mmol/L BUN 25 H (9-20) mg/dL Creatinine 1.21 (0.66-1.25) mg/dL Glucose 121 H (74-99) mg/dL Calcium 9.4 (8.4-10.2) mg/dL Total Bilirubin 0.5 (0.2-1.3) mg/dL AST 24 (17-59) U/L ALT 19 (4-49) U/L Alkaline Phosphatase 103 (38-126) U/L Total Protein 6.6 (6.3-8.2) g/dL Albumin 3.5 (3.5-5.0) g/dL Assessment and Plan (1) Small bowel obstruction Current Visit: Yes Status: Acute Code(s): K56.609 - UNSP INTESTNL OBST, UNSP TO PARTIAL VERSUS COMPLETE OBST SNOMED Code(s): 153809361
[2020-11-10] MEDS: HYDROmorphone 1 MG/ML 1 ML SYRINGE IVP PRN ×5 (09:17→22:16)
[2020-11-10] MEDS: SODIUM CHLORIDE 0.9% 1,000 ML IV SCH ×3 (12:33→21:18)
--- NOTE | 2020-11-10 16:16 | P.PN ---
Progress Note - Text Progress Note Date: 11/10/20 Notified by radiology regarding findings on multiple coil winder view including slow progression of barium contrast through small bowel. After 8 hours, contrast with minimal progression into the small bowel. Patient advised to drink water as needed per discussion with radiologist. Patient did have emesis. Risk of intraluminal web causing bowel obstruction described and may need surgical resection. In the interim, continue with small bowel series. Will need nasogastric tube decompression.
[2020-11-10] MEDS: ONDANSETRON 4 MG/2 ML VIAL IVP PRN (16:37)
--- NOTE | 2020-11-10 23:07 | FL ---
EXAMINATION TYPE: FL small bowel follow through DATE OF EXAM: 11/10/2020 CLINICAL HISTORY: Obstruction TECHNIQUE: A single contrast small bowel follow through is performed utilizing barium. COMPARISON: Radiograph 11/08/2020 FINDINGS: Approximately 11 hours after the start of the small bowel follow-through, contrast is seen in the sto mach, duodenum and dilated proximal jejunum. No contrast is seen within dilated distal small bowel or nondilated large bowel. Lumbar spinal fusion hardware. Bilateral total hip arthroplasties are partially visualized. IMPRESSION: Abnormal small bowel follow through described.
[2020-11-10] MEDS ORDERED: NON FORMULARY DRUG (Tadalafil [Cialis] 5 MG Tablet) PO PRN (23:10)
[2020-11-10] MEDS ORDERED: carisoprodoL 350 MG TAB PO PRN (23:10)
[2020-11-11] MEDS: HYDROmorphone 1 MG/ML 1 ML SYRINGE IVP PRN ×6 (01:17→20:22)
[2020-11-11] MEDS ORDERED: PANTOPRAZOLE 40 MG TABLET PO SCH (07:30)
[2020-11-11] MEDS: LORATADINE 10 MG TAB PO SCH (09:17)
[2020-11-11] MEDS: FINASTERIDE 5 MG TAB PO SCH (09:17)
[2020-11-11] MEDS: SODIUM CHLORIDE 0.9% 1,000 ML IV SCH ×2 (09:17→15:52)
--- NOTE | 2020-11-11 12:33 | P.PN ---
Subjective Progress Note Date: 11/11/20 Principal diagnosis: Recurrent small bowel obstruction Patient had a nasogastric tube placed last night. Since it was placed is had over 2 L output. Mostly barium appearance to the fluid. Pain is improved. Passing flatus. He is thirsty. Objective - Vital Signs Vital signs: Vital Signs Temp 97.9 F 11/11/20 04:37 Pulse 71 11/11/20 08:00 Resp 16 11/11/20 08:00 BP 129/79 11/11/20 04:37 Pulse Ox 99 11/11/20 04:37 Intake & Output 11/10/20 11/11/20 11/11/20 18:59 06:59 18:59 Intake Total 400 590 Output Total 950 Balance 400 -360 Weight 106.594 kg Intake: Intake, IV Titration 400 Amount Sodium Chloride 0.9% 1, 400 000 ml @ 130 mls/hr IV . Q7H42M [facility] Rx#:[id number] Oral 590 Output: Gastric Drainage 950 Other: # Voids 2 1 - Exam Abdomen: Soft, nontender, nondistended - Labs CBC & Chem 7: 11/10/20 06:25 11/10/20 06:25 Assessment and Plan (1) Small bowel obstruction Narrative/Plan: Patient with recurrent small bowel obstruction. Small bowel series noted. Cont inue nasogastric tube suction. Continue bowel rest. Current Visit: Yes Status: Acute Code(s): K56.609 - UNSP INTESTNL OBST, UNSP TO PARTIAL VERSUS COMPLETE OBST SNOMED Code(s): 049740397
[2020-11-11] MEDS: ONDANSETRON 4 MG/2 ML VIAL IVP PRN (13:07)
--- NOTE | 2020-11-11 15:08 | XR ---
EXAMINATION TYPE: XR chest 1V portable DATE OF EXAM: 11/11/2020 COMPARISON: 03/13/2020 HISTORY: Short of breath TECHNIQUE: Single view FINDINGS: Heart is enlarged. There is a relative poor inspiration. There is nasogastric tube. There i s small amount of contrast in the stomach. There is no obvious heart failure. There is coarsening of interstitial markings. There is probably some infiltrate in the left lower lobe behind the heart. IMPRESSION: New left basilar infiltrate and atelectasis compared to old exam. No obvious heart failur e.
[2020-11-11 15:18] LABS: ALT 17 U/L (4-49); AST 25 U/L (17-59); African American GFR (CKD) 76 (>60 ml/min/1.73 sqM); Albumin 3.7 g/dL (3.5-5.0); Albumin/Globulin Ratio 1.2; Alkaline Phosphatase 108 U/L (38-126); Anion Gap 11 mmol/L; Blood Urea Nitrogen 28 mg/dL (9-20); Calcium 8.9 mg/dL (8.4-10.2); Carbon Dioxide 23 mmol/L (22-30); Chloride 107 mmol/L (98-107); Globulin 3.1 g/dL; Glucose 95 mg/dL (74-99); Non-African American GFR(CKD) 65 (>60 ml/min/1.73 sqM); Sodium 141 mmol/L (137-145); Total Bilirubin 0.7 mg/dL (0.2-1.3); Total Protein 6.8 g/dL (6.3-8.2)
[2020-11-11] MEDS: TAMSULOSIN 0.4 MG CAP.ER.24H PO SCH (16:58)
[2020-11-11] MEDS: HEPARIN SODIUM,PORCINE/PF 5,000 UNIT/0.5 ML SYRINGE SQ SCH ×2 (16:58→22:03)
[2020-11-11 17:35] LABS: Basophils % (A) 0 %; Eosinophils # (A) 0.1 k/uL (0-0.7); Eosinophils % (A) 2 %; HCT 42.1 % (39.0-53.0); HGB 13.2 gm/dL (13.0-17.5); Lymphocytes # (A) 1.3 k/uL (1.0-4.8); Lymphocytes % (A) 21 %; MCH 27.9 pg (25.0-35.0); MCHC 31.4 g/dL (31.0-37.0); MCV 88.9 fL (80.0-100.0); Mean Platelet Volume 8.8; Monocytes # (A) 0.5 k/uL (0-1.0); Monocytes % (A) 7 %; Neutrophils # (A) 4.4 k/uL (1.3-7.7); Neutrophils % (A) 68 %; Platelet Count 186 k/uL (150-450); RBC 4.74 m/uL (4.30-5.90); RDW 15.8 % (11.5-15.5); WBC 6.5 k/uL (3.8-10.6)
--- NOTE | 2020-11-11 19:27 | CONS ---
CONSULTATION I am covering for Dr. Wang. REASON FOR CONSULTATION: Advice regarding chest pain and multiple medical issues, requested by Surgery. This 65-year-old gentleman with a past medical history of GERD, history of DJD, history of prostate disorder, history of enlarged prostate, history of bowel obstruction, being followed by Dr. Wang in the outpatient setting, was admitted with small bowel obstruction. NG tube was inserted with some significant drainage. Currently the patient is complaining of left-sided chest pain which is 10/10, severe pain, lasting for minutes, without any radiation or any associated symptoms, which is waxing and waning, according to him. The patient is being monitored closely at this time. The patient previously also had multiple stress tests , which are not available, but apparently the patient passed, according to him. There is no history of any fever, rigor or chills at this time. PAST MEDICAL HISTORY: GERD, DJD, prostate disorder, deafness, back surgery, hernia repair. MEDICATIONS: Medications prior to admission include Flomax, Percocet, Senna, Ambien, Cialis, Gas-X, Protonix, Men's Multivitamins, Motrin, Avodart, Zyrtec and Tylenol. ALLERGIES: NONE. FAMILY HISTORY: History of DVT in the family. SOCIAL HISTORY: History of alcohol. No history of smoking. REVIEW OF SYSTEMS: ENT: No diminished hearing. No diminished vision. CARDIOVASCULAR SYSTEM: As mentioned earlier. RESPIRATORY SYSTEM: As mentioned earlier. GI: No nausea, vomiting, diarrhea. : No dysuria. NERVOUS SYSTEM: No numbness, weakness. ALLERGY/IMMUNOLOGY: No asthma or hay fever. MUSCULOSKELETAL: As mentioned earlier. HEMATOLOGY/ONCOLOGY: No history of anemia. ENDOCRINE: No history of diabetes or hypothyroidism. CONSTITUTIONAL: As mentioned earlier. DERMATOLOGY: Negative. RHEUMATOLOGY: Negative. PSYCHIATRY: As mentioned earlier. PHYSICAL EXAMINATION: Patient is alert, oriented x3. Pulse is 69, blood pressure 149/80, respiration 19, temperature 98.3, pulse ox 94% on room air. HEENT: Conjunctivae normal. Oral mucosa moist. NECK: No jugular venous distention. No carotid bruit. No lymph node enlargement. CARDIOVASCULAR: S1, S2 muffled. RESPIRATION: Breath sounds diminished at the bases. No rhonchi. No crackles. ABDOMEN: Soft, distended. Mild diffuse discomfort. NG tube in place. Bowel sounds diminished. LEGS: No edema. No swelling. NERVOUS SYSTEM: Higher functions as mentioned earlier. Moves all 4 limbs. No focal motor or sensory deficit. LYMPHATICS: No lymph node palpable in neck, axillae or groin. SKIN: No ulcer, rash, bleeding. JOINTS: No active deforming arthropathy. LABS: CBC within normal limits. CO2 is 109. BUN is 25. ASSESSMENT: 1. Left-sided chest pain for evaluation. Rule out coronary artery disease. 2. Small bowel obstruction. NG tube and conservative line of management. 3. History of gastroesophageal reflux disease. 4. Hard of hearing. 5. History of back pain, degenerative joint disease. 6. History of bowel obstruction. 7. History of MRSA. 8. History of back surgery, degenerative joint disease. 9. Obesity; body mass index 32.8. 10.FULL CODE. RECOMMENDATIONS AND DISCUSSION: In this 65-year-old gentleman who presented with multiple medical issues, at this time I recommend to continue the current medications, continue symptomatic treatment. Recommend EKG, set of troponins, cardiology evaluation. The patient previously had a stress test. I would also recommend D-dimer and if it is positive recommend CT angio of the chest. Otherwise, a baseline EKG and portable chest x-ray. We will follow the patient closely with you. Patient may be asked to follow up with Dr. Wagn closely after discharge. Thank you for letting us participate in the care this patient. DESTINEE / SEAMUS: [id number] / MTDD
[2020-11-11] MEDS: PANTOPRAZOLE 40 MG/10 ML VIAL IVP SCH (20:22)
--- NOTE | 2020-11-11 20:49 | CT ---
EXAMINATION TYPE: CT chest angio for PE DATE OF EXAM: 11/11/2020 COMPARISON: 04/30/2017 HISTORY: Elevated d-dimer CT DLP: 613 mGycm Automated exposure control for dose reduction was used. CONTRAST: Performed with IV Contrast, patient injected with 100 mL of Isovue 370. There are 3-D post processed images. Heart appears normal. There is no pericardial effusion. There is some patchy atelectasis and infiltra te at the lung bases. There is no pleural effusion. There is some contrast material in the gastric fu ndus. There is nasogastric tube. There is no mediastinal adenopathy. There are no hilar masses. There is no rmal contrast opacification of the pulmonary arteries. There are no filling defects. Thoracic aorta s hows no aneurysm or dissection. There are some distended small bowel loops with oral contrast. These are seen in the left upper quadrant and measure up to 4 cm IMPRESSION: There is bilateral lower lobe pulmonary infiltrates and atelectasis which appear new compared to old exam. No evidence of pulmonary embolism. Dilated small bowel suggestive of mechanical bowel obstruction with retained contrast material in the dilated small bowel in the upper abdomen. This patient had upper GI exam yesterday and this contrast material should be cleared today if the GI tract was normal..
[2020-11-11] MEDS: ZOLPIDEM 5 MG TAB PO PRN (21:54)
[2020-11-12] MEDS: SODIUM CHLORIDE 0.9% 1,000 ML IV SCH ×4 (00:02→17:53)
[2020-11-12] MEDS: HYDROmorphone 1 MG/ML 1 ML SYRINGE IVP PRN ×7 (01:09→22:43)
[2020-11-12] MEDS: LORATADINE 10 MG TAB PO SCH (09:08)
[2020-11-12] MEDS: PANTOPRAZOLE 40 MG/10 ML VIAL IVP SCH ×2 (09:08→19:56)
[2020-11-12] MEDS: HEPARIN SODIUM,PORCINE/PF 5,000 UNIT/0.5 ML SYRINGE SQ SCH ×2 (09:08→19:56)
[2020-11-12] MEDS: FINASTERIDE 5 MG TAB PO SCH (09:08)
[2020-11-12 09:43] LABS: Appearance,Urine Clear (Clear); Bilirubin,Urine Negative (Negative); Blood,Urine Negative (Negative); Color,Urine Yellow; Glucose,Urine (UA) Negative (Negative); Ketones,Urine 2+ (Negative); Leukocyte Esterase,Urine Negative (Negative); Nitrite,Urine Negative (Negative); Protein,Urine Trace (Negative)
[2020-11-12 09:45] LABS: Specific Gravity,Urine >1.050 (1.001-1.035)
--- NOTE | 2020-11-12 09:55 | P.PN ---
Subjective Progress Note Date: 11/12/20 Principal diagnosis: Recurrent small bowel obstruction Patient still having nausea. Nasogastric tube continues to put out a fair amount of bilious output now. Feels bloated to certain degree. Symptoms are improved since nasogastric tube placement but not resolved. No bowel movement. Objective - Vital Signs Vital signs: Vital Signs Temp 99.3 F 11/12/20 05:00 Pulse 76 11/12/20 05:00 Resp 16 11/12/20 05:00 BP 144/88 11/12/20 05:00 Pulse Ox 93 L 11/12/20 05:00 Intake & Output 11/11/20 11/12/20 11/12/20 18:59 06:59 18:59 Intake Total 1040 120 Output Total 600 Balance 1040 -480 Intake: Intake, IV Titration 1040 Amount Sodium Chloride 0.9% 1, 1040 000 ml @ 130 mls/hr IV . Q7H42M [facility] Rx#:[id number] Oral 120 Output: Urine 600 Other: # Voids 1 1 - Exam Abdomen: Soft, mild distention, mild upper abdominal tenderness, no rebound or guarding - Labs CBC & Chem 7: 11/11/20 17:15 11/11/20 14:51 Labs: Abnormal Lab Results - Last 24 Hours (Table) 11/11/20 11/11/20 11/11/20 Range/Units 09:32 14:51 17:15 RDW (11.5-15.5) % D-Dimer 4.13 H (<0.60) mg/L FEU BUN 28 H (9-20) mg/dL Ur Specific [place] >1.050 H (1.001-1.035) Urine Protein Trace H (Negative) Urine Ketones 2+ H (Negative) 11/11/20 Range/Units 17:15 RDW 15.8 H (11.5-15.5) % D-Dimer (<0.60) mg/L FEU BUN (9-20) mg/dL Ur Specific [place] (1.001-1.035) Urine Protein (Negative) Urine Ketones (Negative) Assessment and Plan (1) Small bowel obstruction Narrative/Plan: Will obtain x-rays today to confirm appropriate positioning of nasogastric tube. Repeat labs tomorrow. Keep nothing by mouth. Current Visit: Yes Status: Acute Code(s): K56.609 - UNSP INTESTNL OBST, UNSP TO PARTIAL VERSUS COMPLETE OBST SNOMED Code(s): 017250154
--- NOTE | 2020-11-12 10:31 | XR ---
Two-view abdomen. HISTORY: Follow-up upper GI and small bowel follow-through 2 days post to rule out bowel obstruction. COMPARISON: Small bowel follow-through dated 11/10/2020. TECHNIQUE: Upright and supine views of the abdomen were obtained. FINDINGS: Dilute contrast is seen scattered through the small bowel and proximal colon. A small amount of contr ast is seen within the stomach fundus. There are multiple dilated loops of small bowel indicating a p artial ileus mid small bowel obstruction. There are postsurgical changes of lower lumbar spine interdisc and posterior metallic fusion. There a re bilateral hip prostheses. IMPRESSION: Findings consistent with proximal to mid partial small bowel obstruction
[2020-11-12] MEDS: ONDANSETRON 4 MG/2 ML VIAL IVP PRN (12:43)
--- NOTE | 2020-11-12 13:46 | P.CRDCN ---
History of Present Illness Consult date: 11/12/20 History of present illness: This is 65-year-old gentleman with history of GERD, prostate hypertrophy, and DJD apparently had surgery for bowel obstruction at [facility] recently. Patient is readmitted to the hospital with the bloating of the abdomen and discomfort and was diagnosed to have small bowel obstruction. Patient has an NG tube. He was complaining of left-sided chest pain yesterday which was intense. EKG done on did not reveal any acute changes. There is no EKG available from yesterday patient had cardiac enzymes 3 which are negat angelito. Patient also had a computed tomography scan of the chest because of abnormal d-dimer. Apparently that was normal without any evidence of pulmonary emboli. Patient claims that her chest pain is much better today and it is felt that this discomfort is related to his abdominal distention . He doesn't seem to be in acute distress. He doesn't have any previous history of myocardial infarction or ischemic heart disease. No hypertension, diabetes. Patient nonsmoker. Review of Systems As per the chart Past Medical History Past Medical History: GERD/Reflux, Hearing Disorder / Deafness, Osteoarthritis (OA), Prostate Disorder Additional Past Medical History / Comment(s): Deaf in right ear, BACK PAIN, DJD, enlarged prostate, just d/c from [facility] for abd. pain related to surgery scheduled, feels better, bowel obstruction History of Any Multi-Drug Resistant Organisms: MRSA Date of last positivie culture/infection: 2014 MDRO Source:: nose Past Surgical History: Back Surgery, Hernia Repair, Joint Replacement, Orthopedic Surgery Additional Past Surgical History / Comment(s): Back surgery 2, right knee replacement, right hip replacement, left hip replacement X2, PAIN PROCEDURES, COLLARBONE REPAIRED, right inguinal repair. Past Anesthesia/Blood Transfusion Reactions: No Reported Reaction Additional Past Anesthesia/Blood Transfusion Reaction / Comment(s): No hx blood transfusion. Past Psychological History: No Psychological Hx Reported Smoking Status: Never smoker Past Alcohol Use History: Occasional Past Drug Use History: None Reported - Past Family History Father Family Medical History: Congestive Heart Failure (CHF) Brother(s) Family Medical History: Deep Vein Thrombosis (DVT) Medications and Allergies Home Medications Medication Instructions Recorded Confirmed Type Zolpidem Tartrate [Ambien] 10 mg PO HS PRN 02/17/14 11/10/20 History oxyCODONE-APAP 10-325MG [Percocet 1 tab PO QID PRN 05/31/14 11/10/20 History 10-325 mg] carisoprodoL [Soma] 350 mg PO QID PRN 07/04/16 11/10/20 History Multivitamin [Men's Multi-Vitamin] 1 tab PO DAILY 10/14/16 11/10/20 History Cetirizine HCl [Zyrtec] 10 mg PO BID 01/15/18 11/10/20 History Dutasteride [Avodart] 0.5 mg PO QAM 03/16/20 11/10/20 History Iron Tab 27 mg PO DAILY 03/16/20 11/10/20 History Pantoprazole Sodium [Protonix] 40 mg PO QAM 03/16/20 11/10/20 History Tadalafil [Cialis] 5 mg PO DAILY PRN 03/29/20 11/10/20 History Tamsulosin [Flomax] 0.8 mg PO DAILY@1600 03/29/20 11/10/20 History Acetaminophen Tab [Tylenol Tab] 1,000 mg PO Q6HR PRN #30 tablet 10/30/20 11/10/20 Rx Ibuprofen [Motrin] 600 mg PO Q8HR PRN #30 tab 10/30/20 11/10/20 Rx Simethicone [Gas-X] 125 mg PO AC-TID PRN #20 cap 10/30/20 11/10/20 Rx Allergies Allergy/AdvReac Type Severity Reaction Status Date / Time No Known Allergies Allergy Verified 11/10/20 07:36 Physical Exam Vitals: Vital Signs Temp Pulse Pulse Resp BP Pulse Ox 11/12/20 12:10 99.1 F 78 19 156/83 91 L 11/12/20 08:00 71 76 16 11/12/20 05:00 99.3 F 76 16 144/88 93 L 11/11/20 20:57 97.8 F 82 16 134/81 94 L Intake and Output 11/11/20 11/12/20 11/12/20 22:59 06:59 14:59 Intake Total 1040 120 Output Total 600 Balance 1040 -480 Intake: Intake, IV Titration 1040 Amount Sodium Chloride 0.9% 1, 1040 000 ml @ 130 mls/hr IV . Q7H42M [facility] Rx#:[id number] Oral 120 Output: Urine 600 Other: # Voids 1 GENERAL EXAM: Patient is alert and oriented and doesn't appear to be in any acute distress. Has an NG tube HEENT: Normocephalic. Normal reaction of pupils, equal size, normal range of extraocular motion. No erythema or exudates in the throat. NECK: No masses, no nuchal rigidity. CHEST: No chest wall deformity. LUNGS: Equal air entry with no crackles or wheeze. HEART: S1 and S2 normal with no audible mumurs or gallops. Regular rhythm, femorals equal on both sides.. ABDOMEN: Distended SKIN: No rashes CENTRAL NERVOUS SYSTEM: No focal deficits. EXTREMITIES: No cyanosis, clubbing or edema. Results 11/11/20 17:15 11/11/20 14:51 Cardiac Enzymes 11/11/20 11/11/20 11/11/20 Range/Units 14:51 14:51 22:07 AST 25 (17-59) U/L Troponin I <0.012 <0.012 (0.000-0.034) ng/mL 11/12/20 Range/Units 01:00 AST (17-59) U/L Troponin I <0.012 (0.000-0.034) ng/mL CBC 11/11/20 Range/Units 17:15 WBC 6.5 (3.8-10.6) k/uL RBC 4.74 (4.30-5.90) m/uL Hgb 13.2 (13.0-17.5) gm/dL Hct 42.1 (39.0-53.0) % Plt Count 186 (150-450) k/uL Comprehensive Metabolic Panel 11/11/20 Range/Units 14:51 Sodium 141 (137-145) mmol/L Potassium 4.0 (3.5-5.1) mmol/L Chloride 107 (98-107) mmol/L Carbon Dioxide 23 (22-30) mmol/L BUN 28 H (9-20) mg/dL Creatinine 1.17 (0.66-1.25) mg/dL Glucose 95 (74-99) mg/dL Calcium 8.9 (8.4-10.2) mg/dL AST 25 (17-59) U/L ALT 17 (4-49) U/L Alkaline Phosphatase 108 (38-126) U/L Total Protein 6.8 (6.3-8.2) g/dL Albumin 3.7 (3.5-5.0) g/dL Current Medications Generic Name Dose Route Start Last Admin Trade Name Freq PRN Reason Stop Dose Admin Carisoprodol 350 mg 11/10/20 23:10 Carisoprodol 350 Mg Tab PO QID PRN Pain Finasteride 5 mg 11/11/20 09:00 11/12/20 09:08 Finasteride 5 Mg Tab PO 5 mg QAM [facility] Administration Heparin Sodium (Porcine) 5,000 unit 11/11/20 14:15 11/12/20 09:08 Heparin Sodium,Porcine/Pf 5,000 Unit/0.5 Ml Syringe SQ 5,000 unit Q12HR [facility] Administration Hydromorphone HCl 1 mg 11/10/20 06:15 11/12/20 12:43 Hydromorphone 1 Mg/Ml 1 Ml Syringe IVP 1 mg Q3HR PRN Administration Severe Pain Sodium Chloride 1,000 mls @ 130 mls/hr 11/10/20 06:15 11/12/20 09:09 Saline 0.9% IV 130 mls/hr .Q7H42M [facility] Administration Loratadine 10 mg 11/11/20 09:00 11/12/20 09:08 Loratadine 10 Mg Tab PO 10 mg DAILY [facility] Administration Naloxone HCl 0.2 mg 11/10/20 06:15 Naloxone 0.4 Mg/Ml 1 Ml Vial IV Q2M PRN Opioid Reversal Ondansetron HCl 4 mg 11/10/20 06:15 11/12/20 12:43 Ondansetron 4 Mg/2 Ml Vial IVP 4 mg Q8HR PRN Administration Nausea And Vomiting Pantoprazole Sodium 40 mg 11/11/20 21:00 11/12/20 09:08 Pantoprazole 40 Mg/10 Ml Vial IVP 40 mg BID [facility] Administration Tamsulosin HCl 0.8 mg 11/11/20 16:00 11/11/20 16:58 Tamsulosin 0.4 Mg Cap.Er.24h PO 0.8 mg DAILY@1600 [facility] Administration Zolpidem Tartrate 10 mg 11/10/20 23:10 09/25/21 21:54 Zolpidem 5 Mg Tab PO 10 mg HS PRN Administration SLEEP Intake and Output 11/11/20 11/12/20 11/12/20 22:59 06:59 14:59 Intake Total 1040 120 Output Total 600 Balance 1040 -480 Intake: Intake, IV Titration 1040 Amount Sodium Chloride 0.9% 1, 1040 000 ml @ 130 mls/hr IV . Q7H42M [facility] Rx#:[id number] Oral 120 Output: Urine 600 Other: # Voids 1 11/11/20 17:15 11/11/20 14:51 EKG Interpretations (text) EKG from showed sinus rhythm Assessment and Plan (1) Chest pain Current Visit: Yes Status: Acute Code(s): R07.9 - CHEST PAIN, UNSPECIFIED SNOMED Code(s): 60145481 (2) Small bowel obstruction Current Visit: Yes Status: Acute Code(s): K56.609 - UNSP INTESTNL OBST, UNSP TO PARTIAL VERSUS COMPLETE OBST SNOMED Code(s): 283455361 (3) BPH (benign prostatic hyperplasia) Current Visit: No Status: Acute Code(s): N40.0 - BENIGN PROSTATIC HYPERPLASIA WITHOUT LOWER URINRY TRACT SYMP SNOMED Code(s): 609316795 (4) DDD (degenerative disc disease), lumbar Current Visit: No Status: Acute Code(s): M51.36 - OTHER INTERVERTEBRAL DISC DEGENERATION, LUMBAR REGION SNOMED Code(s): 97991330 Plan: Patient left-sided chest pain appeared to be atypical and could be related to this abdominal process. His cardiac enzymes are negative. D-dimer is high but computed tomography scan is negative and his chest pain has improved. We'll get an echocardiogram and follow him. Further recommendations depend upon the clinical course
[2020-11-12] MEDS: TAMSULOSIN 0.4 MG CAP.ER.24H PO SCH (15:52)
--- NOTE | 2020-11-12 20:19 | PN ---
PROGRESS NOTE DATE OF SERVICE: 11/12/2020 I am covering for Dr. Wang. This 65-year-old gentleman who was admitted with possible small-bowel obstruction is being closely monitored at this time. The patient also had some left-sided chest pains. Cardiology also has evaluated the patient. The CT angio showed no evidence of any pulmonary embolism. D-dimer was slightly elevated. Cardiology recommended outpatient followup. An abdominal x-ray was recommended Surgery. CT angio was reviewed personally by me showed minimal bibasilar infiltrate versus atelectasis. No chest pain. No palpitations. PAST MEDICAL HISTORY: Reviewed. REVIEW OF SYSTEMS: Cardiovascular: No angina or palpitations. Respiration as mentioned earlier. GI: As mentioned earlier. : No dysuria. Nervous system: No numbness, weakness. CURRENT MEDICATIONS: Reviewed and include: Soma, Proscar, heparin, Claritin, Narcan, Zofran, Protonix. Dose and other medication reviewed. PHYSICAL EXAMINATION: Alert and oriented times three. Pulse 78, blood pressure 130/83, respiration 18, temp 99.1, pulse ox 91 percent on room air. HEENT: Conjunctivae normal. Oral mucosa moist. Neck is no jugular venous distention. No carotid bruit. No lymph node enlargement. Cardiovascular systems: S1, S2 muffled. Respiration: Breath sounds diminished in the bases. Bilateral scattered rhonchi and crackles. Abdomen: Soft, diffuse discomfort. No guarding. No rigidity. No mass palpable. Bowel sounds diminished. Legs are no edema. No swelling. Nervous system: No focal deficits. LABS: D-dimer is 4.13. Other labs are noted. ASSESSMENT: 1. Acute small-bowel obstruction. 2. Possible bibasilar pneumonia possibly gram-negative with acute hypoxic respiratory failure. 3. Elevated D-dimer without any evidence of pulmonary embolism. 4. History of recurrent bowel obstruction. 5. D-dimer elevated up to 4.13. 6. Left-sided chest pain. Troponins are negative. 7. Gastroesophageal reflux disease. 8. Hard of hearing. 9. History of back pain, degenerative joint disease. 10.History of bowel obstruction. 11.History of MRSA. 12.History of back surgery, degenerative joint disease. 13.History of obesity, body mass of 32.8. 14.FULL CODE. RECOMMENDATIONS AND DISCUSSION: Recommend to continue current medications, management and symptomatic treatment. Otherwise at this time, I would also recommend empiric antibiotics. Coarse empiric antibiotics because of the pneumonia and cut down the IV fluids. Close symptomatic treatment. DVT prophylaxis and there is no evidence of PE at this time. I would recommend ultrasound of the leg also. Prognosis guarded. Further recommendations to follow. Dr. Wang will follow tomorrow. DESTINEE / KARANN: [id number] /
[2020-11-12] MEDS ORDERED: ACETAMINOPHEN IV (For NPO) 1,000 MG in EMPTY BAG 1 BAG IVPB PRN (20:38)
[2020-11-12] MEDS: ALBUTEROL NEBULIZED 2.5 MG/3 ML INHALATION SCH (21:06)
[2020-11-12] MEDS: ZOLPIDEM 5 MG TAB PO PRN (22:44)
[2020-11-12] MEDS: PIPERACILLIN-TAZOBACTAM 3.375 GM in SODIUM CHLORIDE 0.9% 100 ML IVPB SCH (23:25)
[2020-11-13] MEDS: HYDROmorphone 1 MG/ML 1 ML SYRINGE IVP PRN ×9 (03:07→23:03)
[2020-11-13 06:48] LABS: Basophils % (A) 0 %; Eosinophils % (A) 1 %; HCT 35.9 % (39.0-53.0); HGB 11.5 gm/dL (13.0-17.5); Lymphocytes # (A) 1.1 k/uL (1.0-4.8); Lymphocytes % (A) 24 %; MCH 28.6 pg (25.0-35.0); MCV 89.3 fL (80.0-100.0); Mean Platelet Volume 8.5; Monocytes # (A) 0.6 k/uL (0-1.0); Monocytes % (A) 13 %; Neutrophils # (A) 2.7 k/uL (1.3-7.7); Neutrophils % (A) 59 %; Platelet Count 155 k/uL (150-450); RBC 4.02 m/uL (4.30-5.90); RDW 15.8 % (11.5-15.5); WBC 4.6 k/uL (3.8-10.6)
[2020-11-13] MEDS: HEPARIN SODIUM,PORCINE/PF 5,000 UNIT/0.5 ML SYRINGE SQ SCH ×2 (07:54→22:10)
[2020-11-13] MEDS: PIPERACILLIN-TAZOBACTAM 3.375 GM in SODIUM CHLORIDE 0.9% 100 ML IVPB SCH ×3 (07:54→23:03)
[2020-11-13] MEDS: FINASTERIDE 5 MG TAB PO SCH (07:55)
[2020-11-13] MEDS: PANTOPRAZOLE 40 MG/10 ML VIAL IVP SCH ×2 (07:55→22:10)
[2020-11-13] MEDS: LORATADINE 10 MG TAB PO SCH (07:55)
--- NOTE | 2020-11-13 08:43 | P.PN ---
Subjective Principal diagnosis: The patient is admitted for continued abdominal pain. The patient is 65-year-old black male with significant history of small bowel obstruction. Lisinopril adhesions were supposedly done recently but the patient now takes continued have significant bloating. No flatus or BM noted yesterday. Underlying history of opiate dependence. Objective - Vital Signs Vital signs: Vital Signs Temp 99.7 F H 11/13/20 05:18 Pulse 79 11/13/20 05:18 Resp 16 11/13/20 05:18 BP 141/75 11/13/20 05:18 Pulse Ox 92 L 11/13/20 05:18 Intake & Output 11/12/20 11/13/20 11/13/20 18:59 06:59 18:59 Intake Total 1040 1040 Output Total 1700 1600 Balance -660 -560 Intake: Intake, IV Titration 1040 1040 Amount Sodium Chloride 0.9% 1, 1040 1040 000 ml @ 75 mls/hr IV . [id number] [facility] Rx#:[id number] Output: Gastric Drainage 1700 1600 Other: # Voids 1 3 - Constitutional General appearance: Present: mild distress - EENT Eyes: Absent: abnormal pupil - Neck Neck: Absent: lymphadenopathy - Respiratory Respiratory: bilateral: CTA - Cardiovascular Rhythm: regular Heart sounds: normal: S1, S2 Abnormal Heart Sounds: Absent: S3 Gallop - Gastrointestinal General gastrointestinal: Present: distended - Integumentary Integumentary: Absent: cellulitis - Labs CBC & Chem 7: 11/13/20 06:00 11/11/20 14:51 Labs: Abnormal Lab Results - Last 24 Hours (Table) 11/11/20 11/13/20 Range/Units 09:32 06:00 RBC 4.02 L (4.30-5.90) m/uL Hgb 11.5 L (13.0-17.5) gm/dL Hct 35.9 L (39.0-53.0) % RDW 15.8 H (11.5-15.5) % Ur Specific [place] >1.050 H (1.001-1.035) Urine Protein Trace H (Negative) Urine Ketones 2+ H (Negative) Assessment and Plan (1) Small bowel obstruction Current Visit: Yes Status: Acute Code(s): K56.609 - UNSP INTESTNL OBST, UNSP TO PARTIAL VERSUS COMPLETE OBST SNOMED Code(s): 744661988 (2) DDD (degenerative disc disease), lumbar Current Visit: No Status: Acute Code(s): M51.36 - OTHER INTERVERTEBRAL DISC DEGENERATION, LUMBAR REGION SNOMED Code(s): 05008546 Plan: Titrate Dilaudid for pain control. Await surgical reevaluation. Check CBC and CMP in a.m.
[2020-11-13] MEDS: ALBUTEROL NEBULIZED 2.5 MG/3 ML INHALATION SCH ×3 (08:51→19:58)
--- NOTE | 2020-11-13 09:33 | XR ---
EXAMINATION TYPE: XR chest 2V DATE OF EXAM: 11/13/2020 COMPARISON: Chest x-ray 11/11/2020 HISTORY: NG tube, fevers TECHNIQUE: Frontal and lateral views of the chest are obtained. FINDINGS: NG tube shows the side port within the proximal thoracic esophagus. There is no pneumothor ax. There is some blunting of the left costophrenic angle. Heart is stable, patient is rotated. Aorta appears prominently. There is metallic density seen in the left upper quadrant, contrast is no longe r seen. IMPRESSION: There may be aortic aneurysm. Possible left lower lobe atelectasis and associated effusi on versus pneumonia
[2020-11-13 10:06] LABS: African American GFR (CKD) 73.6 (60.0-200.0); Albumin 3.4 g/dL (3.80-4.90); Albumin/Globulin Ratio 1.48 (1.60-3.17); BUN/Creat Ratio 22.5 Ratio (12.00-20.00); Calcium 8.1 mg/dL (8.7-10.3); Globulin 2.3 g/dL (1.6-3.3); Non-African American GFR(CKD) 63.5 (60.0-200.0); Potassium 3.4 mmol/L (3.5-5.5); Total Bilirubin 0.4 mg/dL (0.2-1.2); Total Protein 5.7 g/dL (6.2-8.2)
[2020-11-13] MEDS: IOPAMIDOL CONTRAST (ORAL USE) VIAL PO PRN ×2 (10:28→11:23)
--- NOTE | 2020-11-13 12:07 | P.PN ---
<Faye Noble - Last Filed: 11/13/20 11:59> Subjective Progress Note Date: 11/13/20 CHIEF COMPLAINT: Abdominal pain HISTORY OF PRESENT ILLNESS: This is a 65-year-old male with a recurrent small bowel obstruction. He has NG tube in place with 1600mL output this morning. Patient still complains of abdominal bloating. He does report slight decrease in pain. He describes his pain as a 20 out of 10 on admission and is now 9 out of 10. He denies any flatus or BM. He did have a fever of 102 last night. WBC is 4.6 hemoglobin 11.5 sodium is 143 potassium 3.[address] of the chest was negative for PE that was done a couple days ago. Medicines service did place patient on antibiotics for his fever Chest x-ray there may be aortic aneurysm. Possible left lower lobe atelectasis and associated effusion versus pneumonia PHYSICAL EXAM: VITAL SIGNS: Reviewed GENERAL: Well-developed in no acute distress. HEENT: No sclera icterus. Extraocular movements grossly intact. Moist buccal mucosa. Head is atraumatic, normocephalic. Hears conversational speech. No nasal drainage. NECK: Supple without lymphadenopathy. CHEST: Non-labored respirations and equal bilateral excursions. CARDIOVASCULAR: Palpable 2+ radial pulses. ABDOMEN: Distended. Upper abdominal tenderness with palpation MUSCULOSKELETAL: No clubbing or cyanosis. NEUROLOGIC: No focal or lateralizing signs. Cranial nerves II through XII grossly intact. PSYCH: Appropriate affect. Alert and oriented to person, place and time. SKIN: Well perfused. Good skin turgor. ASSESSMENT: 1. Recurrent Small bowel obstruction PLAN: -Computed tomography scan of the abdomen and pelvis with oral and IV contrast ordered for further evaluation of small bowel obstruction -Continue NG tube for decompression -Replace potassium -Encourage patient to increase activity -Continue pain medication as needed Physician Assistant News Director note has been reviewed by physician. Signing provider agrees with the documented findings, assessment, and plan of care. Objective - Vital Signs Vital signs: Vital Signs Temp 99.7 F H 11/13/20 05:18 Pulse 79 11/13/20 05:18 Resp 16 11/13/20 05:18 BP 141/75 11/13/20 05:18 Pulse Ox 92 L 11/13/20 05:18 Intake & Output 11/12/20 11/13/20 11/13/20 18:59 06:59 18:59 Intake Total 1040 1040 Output Total 1700 1600 Balance -660 -560 Intake: Intake, IV Titration 1040 1040 Amount Sodium Chloride 0.9% 1, 1040 1040 000 ml @ 75 mls/hr IV . [id number] [facility] Rx#:[id number] Output: Gastric Drainage 1700 1600 Other: # Voids 1 3 - Labs CBC & Chem 7: 11/13/20 06:00 11/13/20 06:00 Labs: Abnormal Lab Results - Last 24 Hours (Table) 11/13/20 11/13/20 11/13/20 Range/Units 06:00 06:00 06:00 RBC 4.02 L (4.30-5.90) m/uL Hgb 11.5 L (13.0-17.5) gm/dL Hct 35.9 L (39.0-53.0) % RDW 15.8 H (11.5-15.5) % Potassium 3.4 L (3.5-5.5) mmol/L Carbon Dioxide 21.0 L (21.6-31.8) mmol/L Anion Gap 14.00 H (4.00-12.00) mmol/L BUN 26 H (9-20) mg/dL BUN/Creatinine Ratio 22.50 H (12.00-20.00) Ratio Calcium 8.1 L (8.7-10.3) mg/dL Total Protein 5.7 L (6.2-8.2) g/dL Albumin 3.40 L (3.80-4.90) g/dL Albumin/Globulin Ratio 1.48 L (1.60-3.17) g/dL <Lizet Steele N - Last Filed: 11/18/20 12:33> Subjective CHIEF COMPLAINT: Small bowel obstruction HISTORY OF PRESENT ILLNESS: The patient is a 65 year old male who was admitted for recurrent small bowel obstruction. Over the weekend, attempted small bowel follow-through was unsuccessful terminating within the mid to proximal ileum. Patient reports minimal passage of flatus. He has abdominal distention. Patient had episode of chest pain where additional cardiac workup was obtained and unremarkable. REVIEW OF ORGAN SYSTEMS: Patient did have chest pain where troponins are unremarkable. No moderate shortness of breath. Temperature 102.1 overnight. PHYSICAL EXAM: VITALS: Reviewed CONSTITUTIONAL: Well developed and in no acute distress. EYES: Conjuctivae without sclera icterus. Extraocular movements grossly intact. HEAD, EARS, NOSE, THROAT: Moist buccal mucosa. Head is atraumatic, normocephalic. Hears conversational speech. No nasal drainage. RESPIRATORY: Non-labored respirations and equal bilateral excursions. No gross wheezes. CARDIOVASCULAR: Regular rate and rhythm ABDOMEN: Firm, diffusely tender. No peritonitis. MUSCULOSKELETAL: No clubbing cyanosis. SKIN: Warm and well perfused with good skin turgor. NEUROLOGIC: Cranial nerves II through XII grossly intact. No focal or lateralizing signs. PSYCH: Appropriate affect. Alert and oriented to person, place and time. Displays appropriate insight. CLINCAL LABS: Reviewed. WBC normal at 4.6. Hemoglobin 11.5. Potassium 3.4. IMAGING: Small bowel follow-through independent review and inconclusive with minimal transition of contrast through small bowel or colon. This is my independent interpretation. RADIOLOGY: Report review of abdominal x-ray 11/12/2020 demonstrating mid small bowel obstruction CT of the chest report reviewed demonstrating no principal pulmonary embolism. ASSESSMENT: 1. Recurrent small bowel obstruction 2. Inadequate protein intake PLAN: 1. We'll proceed with CT of the abdomen and pelvis. 2. May have ice chips and popsicles. 3. For prolonged inadequate protein intake, may have TPN Objective - Vital Signs Vital signs: Vital Signs Temp 98.2 F 11/17/20 11:05 Pulse 75 11/17/20 12:19 Resp 18 11/17/20 11:05 BP 170/105 11/17/20 11:05 Pulse Ox 99 11/17/20 11:05 Intake & Output 11/17/20 11/18/20 11/18/20 18:59 06:59 18:59 Intake Total 611.5 Output Total 400 Balance 211.5 Weight 106.594 kg Intake: Intake, IV Titration 611.5 Amount Mvi, Adult No.4 with Vit 611.5 K 10 ml Trace (Conc-1Ml/ Dose) 1 ml Parenteral Electrolytes 20 ml In Amino Acids 5 %/Dextrose 20 % 1,000 ml @ 30 mls/hr IV .Q24H ONE Rx#: [id number] Output: Urine 400 Other: Voiding Method Urinal - Labs CBC & Chem 7: 11/16/20 05:40 11/17/20 05:39 Labs: Abnormal Lab Results - Last 24 Hours (Table) 11/17/20 Range/Units 12:49 POC Glucose (mg/dL) 115 H (75-99) mg/dL Assessment and Plan (1) Small bowel obstruction Status: Acute Code(s): K56.609 - UNSP INTESTNL OBST, UNSP TO PARTIAL VERSUS COMPLETE OBST SNOMED Code(s): 371349428 (2) Inadequate dietary intake of protein Status: Acute Code(s): E63.9 - NUTRITIONAL DEFICIENCY, UNSPECIFIED SNOMED Code(s): 618486122 (3) Chronic pain syndrome Status: Acute Code(s): G89.4 - CHRONIC PAIN SYNDROME SNOMED Code(s): 578122699 (4) Obesity (BMI 30-39.9) Status: Acute Code(s): E66.9 - OBESITY, UNSPECIFIED SNOMED Code(s): 342105685 (5) Opiate dependence Status: Acute Code(s): F11.20 - OPIOID DEPENDENCE, UNCOMPLICATED SNOMED Code(s): 63789060
[2020-11-13] MEDS: POTASSIUM CHLORIDE 10 MEQ in WATER FOR INJECTION 1 100ML.BAG IVPB SCH ×2 (12:46→13:57)
--- NOTE | 2020-11-13 13:04 | CT ---
EXAMINATION TYPE: CT abdomen pelvis w con DATE OF EXAM: 11/13/2020 COMPARISON: CT abdomen and pelvis October 12, 2020. Small bowel follow-through 3 days ago. HISTORY: Generalized pain with vomiting, small bowel obstruction. CT DLP: 2313 mGycm, Automated Exposure Control for Dose Reduction was Utilized. CONTRAST: CT scan of the abdomen and pelvis is performed without oral and with IV Contrast, patient injected wi th 100 mL of Isovue 300. FINDINGS: LUNG BASES: New tiny bilateral pleural effusions with posterior atelectasis and/or consolidation LIVER/GB: No significant abnormality is appreciated. PANCREAS: No significant abnormality is seen. SPLEEN: No significant abnormality is seen. ADRENALS: No significant abnormality is seen. KIDNEYS: Is stable 4 mm calculus upper pole right kidney axial image 27. Symmetric cortical medullary uptake and excretion from both kidneys without hydronephrosis seen bilaterally. There is 1.7 cm simp le appearing thin-walled cyst laterally upper to mid pole of the left kidney redemonstrated. BOWEL: Persistent fluid filled dilated small bowel loops with air-fluid levels throughout the abdomen and pelvis. There is dilution of the contrast material due to fluid-filled bowel. Contrast material extends to the nondistended colon along the periphery. Nondistended small bowel loops in the right lo wer quadrant are present. Transition point near this level is likely present as is the location of pr ior suspicious area image [address] exam[address] Tangle of vessels with local mass effect is pres ent. New nasogastric tube extends below diaphragm with persistent mild to moderate distended contrast -filled stomach. Small bowel loops dilated up to nearly 5.0 cm. PROSTATE/SEMINAL VESICLES: Suboptimal evaluation due to surgery. LYMPH NODES: No greater than 1cm abdominal or pelvic lymph nodes are appreciated. OSSEOUS STRUCTURES: Metallic hardware from bilateral hip arthroplasty causes streak artifact limiting evaluation of pelvic structures. Posterior interpedicular rods and screws and metallic disc material L3-L5 levels is redemonstrated. Sacralized left L5 segment again seen. More posterior positioning of metallic disc material than desired is redemonstrated though this is not changed from prior. OTHER: No significant additional abnormality is seen. IMPRESSION: Recurrent high grade partial distal small bowel obstruction, transition point right lower quadrant may be on the basis of internal hernia. No complete obstruction as contrast does pass to co lonic level but there is significant dilatation and multiple air-fluid levels despite nasogastric tub e placement.
--- NOTE | 2020-11-13 13:39 | ECHOF ---
Referral Reason:Chest pain MEASUREMENTS -------- HEIGHT: 180.3 cm WEIGHT: 106.6 kg BP: IVSd: 1.1 cm (0.6 - 1.1) LVIDd: 4.5 cm (3.9 - 5.3) LVPWd: 1.4 cm (0.6 - 1.1) IVSs: 1.8 cm LVIDs: 3.2 cm LVPWs: 1.6 cm Ao Diam: 3.1 cm (2.0 - 3.7) AV Cusp: 1.7 cm (1.5 - 2.6) LA Diam: 3.4 cm (2.7 - 3.8) MV EXCURSION: 17.354 mm (> 18.000) MV EF SLOPE: 88 mm/s (70 - 150) EPSS: 0.3 cm MV E Paul: 0.66 m/s MV DecT: 201 ms MV A Paul: 0.84 m/s MV E/A Ratio: 0.78 RAP: 5.00 mmHg RVSP: 12.80 mmHg FINDINGS -------- This was a technically difficult study with suboptimal views. The left ventricular size is normal. There is mild concentric left ventricular hypertrophy. Overa ll left ventricular systolic function is normal with, an EF between 55 - 60 %. The right ventricle is normal in size. The left atrial size is normal. The right atrial size is normal. Lumason used The aortic valve is trileaflet and appears structurally normal. The mitral valve is normal. There is trace mitral regurgitation. The tricuspid valve appears structurally normal. Trace tricuspid regurgitation present. Right gary tricular systolic pressure is normal at < 35 mmHg. There is no pulmonic regurgitation present. The aortic root size is normal. IVC Not well visulized. There is no pericardial effusion. CONCLUSIONS -------- 1. The left ventricular size is normal. 2. There is mild concentric left ventricular hypertrophy. 3. Overall left ventricular systolic function is normal with, an EF between 55 - 60 %. 4. There is trace mitral regurgitation. 5. Trace tricuspid regurgitation present. 6. There is no pericardial effusion. PIT CRANE OPERATOR: Hemalatha Short [facility]
--- NOTE | 2020-11-13 13:48 | P.PN ---
Subjective This is 65-year-old gentleman with history of GERD, prostate hypertrophy, and DJD apparently had surgery for bowel obstruction at [facility] recently. Patient did see Dr. Ventura in 2016 as a referral for abnormal EKG which revealed sinus rhythm, first degree AV block. Patient underwent Lexiscan stress test in 2016 which was normal. He also went echocardiogram in 2016 which revealed a normal EF 55% without any significant valvular abnormalities. Patient is readmitted to the hospital with the bloating of the abdomen and di scomfort and was diagnosed to have small bowel obstruction. NG tube was placed. He was complaining of left-sided chest pain. Cardiology was consulted. EKG done on did not reveal any acute changes. Cardiac enzymes 3 which are negative. Patient's d-dimer was elevated. Underwent CT chest which revealed bilateral lower lobe pulmonary infiltrates, no evidence of pulmonary embolism, dilated small bowel suggestive of mechanical bowel obstruction. Surgery is following. Patient seen and examined at bedside, no acute distress. He denies any flatus or BM. He had a fever of 102 overnight. Blood pressure 129/82, heart 69, afebrile currently, maintaining oxygen saturations on room air. Laboratory data WBC 4.6, hemoglobin 11.5, platelets 155, sodium 143, potassium 3.4, BUN 26, serum creatinine 1.1, troponin negative 3. Echocardiogram revealed an EF of 5560 percent, trace mitral regurgitation, trace tricuspid regurgitation. GENERAL: In no acute distress. NECK: Supple without JVD or thyromegaly. LUNGS: Breath sounds clear to auscultation bilaterally. Respiration equal and unlabored. No wheezes, rales or rhonchi. HEART: Regular rate and rhythm without murmurs, rubs or gallops. S1 and S2 heard. ABDOMEN: Distended. EXTREMITIES: Normal range of motion, no edema. No clubbing or cyanosis. Peripheral pulses intact. ASSESSMENT Chest pain, atypical, acute coronary syndrome has been ruled out. Echocardiogram with EF 55-60%, no significant wall motion abnormalities. Recurrent Small bowel obstruction GERD Hypokalemia PLAN -Replace potassium per protocol -Echocardiogram obtained and reviewed -No further cardiac work at this time. We will follow the patient on an as needed bases. -Please reach out with further questions or concerns. Nurse Practitioner note has been reviewed, I agree with a documented findings and plan of care. Patient was seen and examined. Objective - Vital Signs Vital signs: Vital Signs Temp 99.7 F H 11/13/20 05:18 Pulse 79 11/13/20 05:18 Resp 16 11/13/20 05:18 BP 141/75 11/13/20 05:18 Pulse Ox 92 L 11/13/20 05:18 Intake & Output 11/12/20 11/13/20 11/13/20 18:59 06:59 18:59 Intake Total 1040 1040 Output Total 1700 1600 Balance -660 -560 Intake: Intake, IV Titration 1040 1040 Amount Sodium Chloride 0.9% 1, 1040 1040 000 ml @ 75 mls/hr IV . [id number] [facility] Rx#:[id number] Output: Gastric Drainage 1700 1600 Other: # Voids 1 3 - Labs CBC & Chem 7: 11/13/20 06:00 11/13/20 06:00 Labs: Abnormal Lab Results - Last 24 Hours (Table) 11/13/20 11/13/20 11/13/20 Range/Units 06:00 06:00 06:00 RBC 4.02 L (4.30-5.90) m/uL Hgb 11.5 L (13.0-17.5) gm/dL Hct 35.9 L (39.0-53.0) % RDW 15.8 H (11.5-15.5) % Potassium 3.4 L (3.5-5.5) mmol/L Carbon Dioxide 21.0 L (21.6-31.8) mmol/L Anion Gap 14.00 H (4.00-12.00) mmol/L BUN 26 H (9-20) mg/dL BUN/Creatinine Ratio 22.50 H (12.00-20.00) Ratio Calcium 8.1 L (8.7-10.3) mg/dL Total Protein 5.7 L (6.2-8.2) g/dL Albumin 3.40 L (3.80-4.90) g/dL Albumin/Globulin Ratio 1.48 L (1.60-3.17) g/dL
[2020-11-13] MEDS: TAMSULOSIN 0.4 MG CAP.ER.24H PO SCH (17:06)
[2020-11-13] MEDS: SODIUM CHLORIDE 0.9% 1,000 ML IV SCH ×2 (17:07→23:59)
[2020-11-14] MEDS: ZOLPIDEM 5 MG TAB PO PRN ×2 (00:09→22:08)
[2020-11-14] MEDS: HYDROmorphone 1 MG/ML 1 ML SYRINGE IVP PRN ×8 (00:58→20:04)
[2020-11-14 06:19] LABS: HCT 34.8 % (39.0-53.0); HGB 11.2 gm/dL (13.0-17.5); MCH 28.8 pg (25.0-35.0); MCHC 32.2 g/dL (31.0-37.0); MCV 89.4 fL (80.0-100.0); Mean Platelet Volume 8.6; Platelet Count 148 k/uL (150-450); RBC 3.89 m/uL (4.30-5.90); RDW 15.7 % (11.5-15.5); WBC 5.3 k/uL (3.8-10.6)
[2020-11-14 06:39] LABS: ALT 19 U/L (4-49); AST 29 U/L (17-59); African American GFR (CKD) 72 (>60 ml/min/1.73 sqM); Alkaline Phosphatase 83 U/L (38-126); Anion Gap 7 mmol/L; Blood Urea Nitrogen 22 mg/dL (9-20); Calcium 8.7 mg/dL (8.4-10.2); Carbon Dioxide 25 mmol/L (22-30); Chloride 109 mmol/L (98-107); Globulin 2.9 g/dL; Glucose 100 mg/dL (74-99); Non-African American GFR(CKD) 63 (>60 ml/min/1.73 sqM); Potassium 3.4 mmol/L (3.5-5.1); Sodium 141 mmol/L (137-145); Total Bilirubin 0.4 mg/dL (0.2-1.3); Total Protein 5.9 g/dL (6.3-8.2)
[2020-11-14] MEDS: SODIUM CHLORIDE 0.9% 1,000 ML IV SCH ×2 (07:20→22:08)
[2020-11-14] MEDS: PIPERACILLIN-TAZOBACTAM 3.375 GM in SODIUM CHLORIDE 0.9% 100 ML IVPB SCH ×2 (07:21→17:11)
[2020-11-14] MEDS: ALBUTEROL NEBULIZED 2.5 MG/3 ML INHALATION SCH ×3 (07:31→20:27)
[2020-11-14] MEDS: PANTOPRAZOLE 40 MG/10 ML VIAL IVP SCH ×2 (08:46→20:04)
[2020-11-14] MEDS: HEPARIN SODIUM,PORCINE/PF 5,000 UNIT/0.5 ML SYRINGE SQ SCH ×2 (09:00→20:04)
[2020-11-14] MEDS: FINASTERIDE 5 MG TAB PO SCH (09:00)
[2020-11-14] MEDS: LORATADINE 10 MG TAB PO SCH (09:00)
[2020-11-14] MEDS ORDERED: LACTATED RINGERS 1,000 ML IV SCH (10:07)
[2020-11-14] MEDS: POTASSIUM CHLORIDE 10 MEQ in WATER FOR INJECTION 1 100ML.BAG IVPB SCH ×2 (10:11→15:17)
--- NOTE | 2020-11-14 12:42 | P.PN ---
<Faye Noble - Last Filed: 11/14/20 12:36> Subjective Progress Note Date: 11/14/20 CHIEF COMPLAINT: Abdominal pain HISTORY OF PRESENT ILLNESS: This is a 65-year-old male with a recurrent small bowel obstruction. He has NG tube in place with 1100mL output this morning. Patient still complains of abdominal bloating. He is having abdominal pain. He did pass a very small amount of flatus this morning. He had a computed tomography scan of abdomen and pelvis yesterday that showed a recurrent high- grade partial distal small bowel obstruction, transition point right lower quadrant may be on the basis of internal hernia. No complete obstruction as contrast does past to colonic level but there is significant dilation and multiple air-fluid levels despite NG tube placement. Patient did have a low- grade temp of 100.2 last night. WBC is 5.3 hemoglobin 11.2 sodium 141 potassium 3.4 and being replaced PHYSICAL EXAM: VITAL SIGNS: Reviewed GENERAL: Well-developed in no acute distress. HEENT: No sclera icterus. Extraocular movements grossly intact. Moist buccal mucosa. Head is atraumatic, normocephalic. Hears conversational speech. No nasal drainage. NECK: Supple without lymphadenopathy. CHEST: Non-labored respirations and equal bilateral excursions. CARDIOVASCULAR: Palpable 2+ radial pulses. ABDOMEN: Distended. Upper abdominal tenderness with palpation MUSCULOSKELETAL: No clubbing or cyanosis. NEUROLOGIC: No focal or lateralizing signs. Cranial nerves II through XII grossly intact. PSYCH: Appropriate affect. Alert and oriented to person, place and time. SKIN: Well perfused. Good skin turgor. ASSESSMENT: 1. Recurrent Small bowel obstruction PLAN: -Patient scheduled for robotic lysis of adhesions, possible open with Dr. Steele tomorrow, 11/15/2020 -Continue NG tube for decompression -Keep patient nothing by mouth -Replace potassium -Check magnesium level -Encourage patient to increase activity -Continue pain medication as needed Physician Grades 9 Thru 12 Visiting Teacher note has been reviewed by physician. Signing provider agrees with the documented findings, assessment, and plan of care. Objective - Vital Signs Vital signs: Vital Signs Temp 98.3 F 11/14/20 11:41 Pulse 73 11/14/20 11:41 Resp 16 11/14/20 11:41 BP 165/97 11/14/20 11:41 Pulse Ox 94 L 11/14/20 11:41 Intake & Output 11/13/20 11/14/20 11/14/20 18:59 06:59 18:59 Intake Total 2500 1000 Output Total 3050 1100 Balance -550 -100 Intake: Intake, IV Titration 1300 1000 Amount Piperacillin-Tazobactam 3 200 100 .375 gm In Sodium Chloride 0.9% 100 ml @ 25 mls/hr IVPB Q8HR [facility] Rx# :[id number] Potassium Chloride 10 meq 200 In Water For Injection 1 100ml.bag @ 100 mls/hr IVPB Q1H [facility] Rx#: [id number] Sodium Chloride 0.9% 1, 900 900 000 ml @ 75 mls/hr IV . [id number] [facility] Rx#:[id number] Oral 1200 Output: Gastric Drainage 2200 1100 Urine 850 Other: Voiding Method Toilet Urinal # Voids 800 - Labs CBC & Chem 7: 11/14/20 05:29 11/14/20 05:29 Labs: Abnormal Lab Results - Last 24 Hours (Table) 11/14/20 11/14/20 Range/Units 05:29 05:29 RBC 3.89 L (4.30-5.90) m/uL Hgb 11.2 L (13.0-17.5) gm/dL Hct 34.8 L (39.0-53.0) % RDW 15.7 H (11.5-15.5) % Plt Count 148 L (150-450) k/uL Potassium 3.4 L (3.5-5.1) mmol/L Chloride 109 H (98-107) mmol/L BUN 22 H (9-20) mg/dL Glucose 100 H (74-99) mg/dL Total Protein 5.9 L (6.3-8.2) g/dL Albumin 3.0 L (3.5-5.0) g/dL <Lizet Steele - Last Filed: 11/18/20 12:40> Subjective CHIEF COMPLAINT: Small bowel obstruction HISTORY OF PRESENT ILLNESS: The patient is a 65 year old male admitted with recurrent small bowel obstruction. Patient still reports distention including abdominal pain. His pre-existing history of chronic pain syndrome. He reports decreased abdominal pain and is passing some flatus. REVIEW OF ORGAN SYSTEMS: No fevers over 100.1. No chest pain. No shortness of breath. PHYSICAL EXAM: VITALS: Reviewed CONSTITUTIONAL: Well developed and in no acute distress. EYES: Conjuctivae without sclera icterus. Extraocular movements grossly intact. HEAD, EARS, NOSE, THROAT: Moist buccal mucosa. Head is atraumatic, normocephalic. Hears conversational speech. No nasal drainage. RESPIRATORY: Non-labored respirations and equal bilateral excursions. No gross wheezes. CARDIOVASCULAR: Regular rate and rhythm ABDOMEN: Moderate distention. No peritonitis. MUSCULOSKELETAL: No clubbing cyanosis. SKIN: Warm and well perfused with good skin turgor. NEUROLOGIC: Cranial nerves II through XII grossly intact. No focal or lateralizing signs. PSYCH: Appropriate affect. Alert and oriented to person, place and time. Displays appropriate insight. CLINCAL LABS: Reviewed. WBC normal 5.3. Potassium 3.4. IMAGING: CT of the abdomen and pelvis reviewed demonstrating contrast extended into colon. Mid and proximal small bowel dilation. Focal area of small bowel decompression on the right lower quadrant. This is my independent interpretation. REPORT: Echo report review demonstrated ejection fraction of 55-60%. Left ventricle within normal limits. No evidence of aortic or pulmonary stenosis. ASSESSMENT: 1. Recurrent small bowel obstruction 2. Inadequate protein intake PLAN: 1. Start TPN. 2. Continue nasogastric tube decompression. 3. Surgical intervention described if no clinical improvement. Objective - Vital Signs Vital signs: Vital Signs Temp 98.2 F 11/17/20 11:05 Pulse 75 11/17/20 12:19 Resp 18 11/17/20 11:05 BP 170/105 11/17/20 11:05 Pulse Ox 99 11/17/20 11:05 Intake & Output 11/17/20 11/18/20 11/18/20 18:59 06:59 18:59 Intake Total 611.5 Output Total 400 Balance 211.5 Weight 106.594 kg Intake: Intake, IV Titration 611.5 Amount Mvi, Adult No.4 with Vit 611.5 K 10 ml Trace (Conc-1Ml/ Dose) 1 ml Parenteral Electrolytes 20 ml In Amino Acids 5 %/Dextrose 20 % 1,000 ml @ 30 mls/hr IV .Q24H ONE Rx#: [id number] Output: Urine 400 Other: Voiding Method Urinal - Labs CBC & Chem 7: 11/16/20 05:40 11/17/20 05:39 Labs: Abnormal Lab Results - Last 24 Hours (Table) 11/17/20 Range/Units 12:49 POC Glucose (mg/dL) 115 H (75-99) mg/dL Assessment and Plan (1) Small bowel obstruction Status: Acute Code(s): K56.609 - UNSP INTESTNL OBST, UNSP TO PARTIAL VERSUS COMPLETE OBST SNOMED Code(s): 998261313 (2) Inadequate dietary intake of protein Status: Acute Code(s): E63.9 - NUTRITIONAL DEFICIENCY, UNSPECIFIED SNOMED Code(s): 749803380 (3) Chronic pain syndrome Status: Acute Code(s): G89.4 - CHRONIC PAIN SYNDROME SNOMED Code(s): 625360246 (4) Obesity (BMI 30-39.9) Status: Acute Code(s): E66.9 - OBESITY, UNSPECIFIED SNOMED Code(s): 129737190 (5) Opiate dependence Status: Acute Code(s): F11.20 - OPIOID DEPENDENCE, UNCOMPLICATED SNOMED Code(s): 07473064 (6) Hypokalemia Status: Acute Code(s): E87.6 - HYPOKALEMIA SNOMED Code(s): 46174258
--- NOTE | 2020-11-14 13:46 | P.PN ---
Subjective Principal diagnosis: The patient is admitted for continued abdominal pain. The patient is 65-year-old black male with significant history of small bowel obstruction. Lisinopril adhesions were supposedly done recently but the patient now takes continued have significant bloating. No flatus or BM noted yesterday. Underlying history of opiate dependence. Schedule for surgical repair in a.m. Objective - Vital Signs Vital signs: Vital Signs Temp 98.3 F 11/14/20 11:41 Pulse 73 11/14/20 11:41 Resp 16 11/14/20 11:41 BP 165/97 11/14/20 11:41 Pulse Ox 94 L 11/14/20 11:41 Intake & Output 11/13/20 11/14/20 11/14/20 18:59 06:59 18:59 Intake Total 2500 1000 Output Total 3050 1100 Balance -550 -100 Intake: Intake, IV Titration 1300 1000 Amount Piperacillin-Tazobactam 3 200 100 .375 gm In Sodium Chloride 0.9% 100 ml @ 25 mls/hr IVPB Q8HR [facility] Rx# :[id number] Potassium Chloride 10 meq 200 In Water For Injection 1 100ml.bag @ 100 mls/hr IVPB Q1H [facility] Rx#: [id number] Sodium Chloride 0.9% 1, 900 900 000 ml @ 75 mls/hr IV . [id number] [facility] Rx#:[id number] Oral 1200 Output: Gastric Drainage 2200 1100 Urine 850 Other: Voiding Method Toilet Urinal # Voids 800 - Constitutional General appearance: Present: average body habitus - EENT Eyes: Absent: abnormal pupil - Neck Neck: Absent: lymphadenopathy - Respiratory Respiratory: bilateral: diminished - Cardiovascular Rhythm: regular Heart sounds: normal: S1, S2 Abnormal Heart Sounds: Absent: S3 Gallop - Gastrointestinal General gastrointestinal: Present: distended, normal bowel sounds - Labs CBC & Chem 7: 11/14/20 05:29 11/14/20 05:29 Labs: Abnormal Lab Results - Last 24 Hours (Table) 11/14/20 11/14/20 Range/Units 05:29 05:29 RBC 3.89 L (4.30-5.90) m/uL Hgb 11.2 L (13.0-17.5) gm/dL Hct 34.8 L (39.0-53.0) % RDW 15.7 H (11.5-15.5) % Plt Count 148 L (150-450) k/uL Potassium 3.4 L (3.5-5.1) mmol/L Chloride 109 H (98-107) mmol/L BUN 22 H (9-20) mg/dL Glucose 100 H (74-99) mg/dL Total Protein 5.9 L (6.3-8.2) g/dL Albumin 3.0 L (3.5-5.0) g/dL Assessment and Plan (1) Small bowel obstruction Current Visit: Yes Status: Acute Code(s): K56.609 - UNSP INTESTNL OBST, UNSP TO PARTIAL VERSUS COMPLETE OBST SNOMED Code(s): 027599981 (2) DDD (degenerative disc disease), lumbar Current Visit: No Status: Acute Code(s): M51.36 - OTHER INTERVERTEBRAL DISC DEGENERATION, LUMBAR REGION SNOMED Code(s): 36218150 Plan: Titrate Dilaudid for pain control. Await surgical reevaluation. Hemodynamically stable otherwise. See orders.
[2020-11-14 14:14] VITALS: BMI 32.8
[2020-11-14 14:45] LABS: INR 1.1 (<1.2); Prothrombin Time 11.2 sec (9.0-12.0)
[2020-11-14] MEDS: TAMSULOSIN 0.4 MG CAP.ER.24H PO SCH (15:13)
[2020-11-15] MEDS: PIPERACILLIN-TAZOBACTAM 3.375 GM in SODIUM CHLORIDE 0.9% 100 ML IVPB SCH ×3 (00:12→20:04)
[2020-11-15] MEDS: HYDROmorphone 1 MG/ML 1 ML SYRINGE IVP PRN ×4 (00:55→21:46)
[2020-11-15] MEDS ORDERED: ONDANSETRON 4 MG/2 ML VIAL IVP ONE (06:00)
[2020-11-15] MEDS ORDERED: DEXAMETHASONE SOD PHOSPHATE 4 MG/ML 1 ML VIAL IV ONE (06:00)
[2020-11-15 06:44] LABS: Ionized Calcium 5.3 mg/dL (4.5-5.3)
[2020-11-15 07:04] LABS: ALT 18 U/L (4-49); AST 24 U/L (17-59); African American GFR (CKD) >90 (>60 ml/min/1.73 sqM); Albumin 2.8 g/dL (3.5-5.0); Albumin/Globulin Ratio 0.9; Alkaline Phosphatase 81 U/L (38-126); Anion Gap 8 mmol/L; Blood Urea Nitrogen 18 mg/dL (9-20); Calcium 8.6 mg/dL (8.4-10.2); Carbon Dioxide 25 mmol/L (22-30); Chloride 108 mmol/L (98-107); Glucose 108 mg/dL (74-99); Magnesium 1.9 mg/dL (1.6-2.3); Non-African American GFR(CKD) 78 (>60 ml/min/1.73 sqM); Phosphorus 3.5 mg/dL (2.5-4.5); Potassium 3.3 mmol/L (3.5-5.1); Sodium 141 mmol/L (137-145); Total Bilirubin 0.5 mg/dL (0.2-1.3); Total Protein 5.8 g/dL (6.3-8.2)
[2020-11-15] MEDS: HEPARIN SODIUM,PORCINE/PF 5,000 UNIT/0.5 ML SYRINGE SQ SCH ×2 (07:52→21:46)
[2020-11-15] MEDS: PANTOPRAZOLE 40 MG/10 ML VIAL IVP SCH ×2 (08:58→21:47)
[2020-11-15] MEDS: ALBUTEROL NEBULIZED 2.5 MG/3 ML INHALATION SCH ×3 (09:28→20:03)
[2020-11-15] MEDS: LORATADINE 10 MG TAB PO SCH (10:47)
--- NOTE | 2020-11-15 12:08 | P.PN ---
Subjective Progress Note Date: 11/15/20 CHIEF COMPLAINT: Small bowel obstruction HISTORY OF PRESENT ILLNESS: The patient is a 65 year old male admitted due to recurrent small bowel obstruction. He reports some flatus. He had a large bowel movement. Patient still complains of moderate abdominal distention. Nasogastric tube had fallen out earlier today. Patient is refusing any further NG tube. REVIEW OF ORGAN SYSTEMS: No fevers or chills. No shortness of breath. Resolved chest pain. PHYSICAL EXAM: VITALS: Reviewed CONSTITUTIONAL: Well developed and in no acute distress. EYES: Conjuctivae without sclera icterus. Extraocular movements grossly intact. HEAD, EARS, NOSE, THROAT: Moist buccal mucosa. Head is atraumatic, normoce phalic. Hears conversational speech. No nasal drainage. RESPIRATORY: Non-labored respirations and equal bilateral excursions. No gross wheezes. CARDIOVASCULAR: Regular rate and rhythm. Palpable 2+ radial pulses. ABDOMEN: Firm, diffusely tender. No peritonitis. Moderate distention. MUSCULOSKELETAL: No clubbing cyanosis SKIN: Warm and well perfused with good skin turgor. NEUROLOGIC: Cranial nerves II through XII grossly intact. SNo focal or lateralizing signs. PSYCH: Appropriate affect. Alert and oriented to person, place and time. Displays appropriate insight. CLINCAL LABS: Reviewed. IMAGING: CT of the abdomen pelvis independent review confirms focal right lower quadrant obstruction consistent with area of prior adhesions. ASSESSMENT: 1. Recurrent small bowel obstruction PLAN: 1. I discussed options the patient including placement of nasogastric tube with possible robotic-assisted approach versus open. Patient elected to avoid nasogastric tube and proceed with open exploratory laparotomy. 2. Increased risk of bleeding infection, length of stay reviewed. Patient's elevated risks. Objective - Vital Signs Vital signs: Vital Signs Temp 98.6 F 11/15/20 04:12 Pulse 61 11/15/20 04:12 Resp 16 11/15/20 04:12 BP 144/82 11/15/20 04:12 Pulse Ox 96 11/15/20 04:12 Intake & Output 11/14/20 11/15/20 11/15/20 18:59 06:59 18:59 Intake Total 900 1120 Output Total 700 Balance 200 1120 Weight 106.594 kg Intake: Intake, IV Titration 900 1000 Amount Piperacillin-Tazobactam 3 100 100 .375 gm In Sodium Chloride 0.9% 100 ml @ 25 mls/hr IVPB Q8HR [facility] Rx# :[id number] Potassium Chloride 10 meq 200 In Water For Injection 1 100ml.bag @ 100 mls/hr IVPB Q1H [facility] Rx#: [id number] Sodium Chloride 0.9% 1, 600 900 000 ml @ 75 mls/hr IV . [id number] [facility] Rx#:[id number] Oral 120 Output: Gastric Drainage 700 Other: Voiding Method Toilet Urinal # Voids 1 - Labs CBC & Chem 7: 11/14/20 05:29 11/15/20 05:49 Labs: Abnormal Lab Results - Last 24 Hours (Table) 11/15/20 Range/Units 05:49 Potassium 3.3 L (3.5-5.1) mmol/L Chloride 108 H (98-107) mmol/L Glucose 108 H (74-99) mg/dL Total Protein 5.8 L (6.3-8.2) g/dL Albumin 2.8 L (3.5-5.0) g/dL Assessment and Plan (1) Small bowel obstruction Current Visit: Yes Status: Acute Code(s): K56.609 - UNSP INTESTNL OBST, UNSP TO PARTIAL VERSUS COMPLETE OBST SNOMED Code(s): 533849291
[2020-11-15] MEDS: FINASTERIDE 5 MG TAB PO SCH (12:12)
--- NOTE | 2020-11-15 12:36 | XR ---
2 view abdomen HISTORY: Small bowel obstruction 2 views the abdomen on [address] scan dated 11/13/2020, prior abdomen 11/12/2020 Distended loops of small bowel again noted in the left hemiabdomen. Contrast material is noted within the rectum and large bowel. There is no evident pneumoperitoneum. Lung bases show similar appearance . Bones are stable. There are air-fluid levels on the upright exam. IMPRESSION: Findings consistent with high-grade small bowel obstruction
[2020-11-15] MEDS: POTASSIUM CHLORIDE 10 MEQ in WATER FOR INJECTION 1 100ML.BAG IVPB SCH ×5 (12:39→20:06)
[2020-11-15] MEDS ORDERED: SODIUM CHLORIDE 0.9% 100 ML IV ONE (13:09)
[2020-11-15] MEDS: SCOPOLAMINE 1.5MG/72HR PATCH TRANSDERM ONE ×2 (13:23→13:31)
[2020-11-15] MEDS: LACTATED RINGERS 1,000 ML IV ONE ×2 (13:58→19:38)
[2020-11-15] MEDS: MIDAZOLAM 2 MG/2 ML VIAL IVP ONE ×3 (14:08→18:07)
[2020-11-15] MEDS ORDERED: HEPARIN SODIUM,PORCINE 5,000 UNIT/ML 1 ML VIAL SQ ONE (14:27)
[2020-11-15] MEDS ORDERED: PROPOFOL 10 MG/ML 20 ML VIAL IV ONE (14:34)
[2020-11-15] MEDS ORDERED: HYDROmorphone (PF) 1 MG/ML ONE (14:34)
[2020-11-15] MEDS ORDERED: ROCURONIUM 10 MG/ML (5 ML VIAL) IV ONE (14:34)
[2020-11-15] MEDS ORDERED: fentaNYL (PF) 50 MCG/ML 2 ML AMP ONE (14:34)
[2020-11-15] MEDS ORDERED: LIDOCAINE 1%-EPI 1:100,000 20 ML VIAL ONE (14:34)
[2020-11-15] MEDS ORDERED: ROPIVACAINE 5 MG/ML 30 ML VIAL ONE (14:34)
[2020-11-15] MEDS ORDERED: LIDOCAINE 1% INJ 10MG/ML (20 ML MDV) ONE (14:34)
[2020-11-15] MEDS ORDERED: NEOSTIGMINE 1 MG/ML 10 ML VIAL ONE (14:34)
[2020-11-15] MEDS ORDERED: SUCCINYLCHOLINE CHLORIDE 100 MG/5 ML SYR IV ONE (14:34)
[2020-11-15] MEDS ORDERED: DEXAMETHASONE SOD PHOSPHATE 4 MG/ML 1 ML VIAL ONE (14:34)
[2020-11-15] MEDS ORDERED: GLYCOPYRROLATE 0.2 MG/ML 2 ML VIAL ONE (14:34)
--- NOTE | 2020-11-15 14:37 | P.ANPRN ---
Procedure Note - Anesthesia - Nerve Block Performed Bilateral Erector Spinae Time Out Performed: Yes ([id number]) Date of Procedure: 11/15/20 Procedure Start Time: 14:06 Procedure Stop Time: 14:31 Location of Patient: PreOp Indication: Acute Post-Operative Pain, Analgesia, Dx/Pain Location (Abdiminal pain), Requested by Surgeon Specifically requested for management of pain by DrKey: Lizet Steele Sedation Type: Sedate with meaningful contact maintained Preparation: Sterile Prep Position: Left Lateral Catheter: None Needle Types: Pajunk Needle Gauge: 21 Ultrasound used to visualize needle placement: Yes Ultrasound used to observe medication spread: Yes Injectate: 0.5% Ropivacaine (see comment for volume) (45 cc) Pain Paresthesia on Injection Noted: No Resistance on Injection: Normal Image Stored and Saved: Yes Events: Uneventful and Well Tolerated
[2020-11-15] MEDS ORDERED: LACTATED RINGERS 1,000 ML IV ONE (15:00)
[2020-11-15] MEDS ORDERED: FAT EMULSION 20% 250 ML in EMPTY BAG 1 BAG IV SCH (17:00)
[2020-11-15] MEDS ORDERED: MVI, ADULT NO.4 WITH VIT K 10 ML, TRACE (CONC-1ML/DOSE) 1 ML in AMINO ACID 5%-D20W+LYTE... IV ONE ×3 (17:00)
[2020-11-15] MEDS: HYDROmorphone 0.5 MG/0.5 ML SYRINGE IVP PRN ×4 (17:44→18:25)
[2020-11-15] MEDS ORDERED: SODIUM CHLORIDE 0.9% 1,000 ML IV ONE (17:45)
[2020-11-15] MEDS: fentaNYL (PF) 50 MCG/ML 2 ML AMP IV ONE ×2 (17:46→17:49)
--- NOTE | 2020-11-15 18:04 | P.OP ---
Date of Procedure: 11/15/20 Description of Procedure: SURGEON: NACHO MONTES MD PREOPERATIVE DIAGNOSES: 1. Small bowel obstruction due to adhesions 2. Chronic pain syndrome 3. Inadequate protein intake 4. 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 Gastroesophageal reflux disease POSTOPERATIVE DIAGNOSES: 1. Small bowel obstruction due to adhesions and small bowel stricture 2. Chronic pain syndrome 3. Inadequate protein intake 4. 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 Gastroesophageal reflux disease 6. Intra-abdominal ascites OPERATION: 1. Small bowel decompression via enterotomy, distal jejunum, 1800 mL decompressed 2. Exploratory laparotomy and extensive lysis of adhesions of 2 hrs 3. Small bowel enterectomy with primary anastomosis, distal ileum, 1.5 feet 4. Placement of PREVENA 20 cm incisional wound VAC system ANESTHESIA: General, regional block ESTIMATED BLOOD LOSS: 50mL. SPECIMENS REMOVED: Terminal ileum and appendix en bloc COMPLICATIONS: None. Condition: stable Operative Findings: 1. Moderately dilated small bowel over 5 cm requiring decompression via distal jejunum enterotomy 2. Evacuation of enteric content 1800 mL by decompressive enterotomy 3. Severe intermesenteric including intraloop adhesions involving the distal ileum, 1.5 feet with small bowel stricture 5 4. Severe intermesenteric adhesions involving the appendix requiring en bloc resection 5. Right upper quadrant omentum to ascending colon and cecum adhesions lysed using Enseal 6. Evacuation of abdominal ascites over 500 mL INDICATIONS: The patient is a 65-year-old male who presents with recurrent small bowel obstruction less than 3 weeks ago following prior extensive lysis of adhesions. Multiple diagnostic studies including small bowel follow-through and computed tomography scan were performed confirming focal right lower quadrant internal hernia versus causing obstruction. Exploratory laparotomy with small bowel resection was described. Benefits and risks including but not limited to placement of ostomy, bleeding, infection was described at length. Informed consent was obtained. DESCRIPTION: Patient was brought to the operating room. Preoperative medications including Ancef was given. The patient was placed in supine position whereby general induction was performed. Abdomen had been prepped and draped in the standard sterile fashion with placement of Baxter catheter. Nasogastric tube was placed per anesthesia and confirmed within the stomach. Ioban draping was also placed to minimize any contamination to the skin. Next, using #10 blade, the abdomen was entered along the midline whereby an incision was made just from the xiphoid down to the pubis. The abdomen was inspected whereby the small bowel was dilated over 4-5 cm throughout. Moderate omental to abdominal wall adhesions were found involving the right upper and right lower quadrant addressed using energy source Enseal. The liver surface was unremarkable. No peritoneal studding was identified. Ascites was drained from the abdominal cavity. Next, Bookwalter retractor was placed. Initial attention was brought to decompressing the moderately dilated small bowel at the distal jejunum. At the antimesenteric border of the distal jejunum, a pursestring suture using 3-0 silk was placed. Next the small bowel was decompressed with immediate suction of air and over 1800 mL of bile. The enterotomy was closed using 60 mm 10 load. Upon palpation, at the right lower quadrant dense intermesenteric concrete-like adhesions were found involving the distal ileum as well as appendix with multiple small bowel strictures. A window was created along the mesentery and divided using Covidien Ethicon 60 mm lai staple load for the proximal anastomosis at the distal ileum. Hemostasis was checked. Small bowel strictures 5 were identified involving the terminal ileum to the ileocecal valve and involving the appendix. A 60 mm purple Covidien staple load was fired across the sidewall of the cecum involving the ileocecal valve including incorporating the appendix en bloc with resected 1.5 feet of small bowel. Hemostasis was checked. The small bowel mesentery was mobilized using Enseal. No retroperitoneal adenopathy was palpated. An ileocolic anastomosis was prepared as additional omental adhesions involving the ascending colon including hepatic flexure were addressed using Enseal and Bovie cautery. Colotomy and enterotomy was performed at the stapled edge. The new lumen was created in a side to side fashion using 60 mm purple load. The enterotomy and colotomy were closed using similar staple load. The midline incision was closed using double-stranded 0 PDS. Next, the skin was copiously irrigated with normal saline and hydrogen peroxide. Skin dermal incision was closed using running 3-0 Vicryl. The midline incision was covered using 20-cm PREVENA wound VAC. At the end of the procedure, needle, sponge, and instrument count had been verified correct by surgical technology instructor. The patient tolerated the procedure well and was extubated with removal of her nasogastric tube. The patient's family was updated on level of care with intraoperative findings and pictures reviewed.
[2020-11-15] MEDS ORDERED: KETOROLAC 15 MG/ML 1 ML VIAL ONE (18:21)
[2020-11-15] MEDS ORDERED: KETOROLAC 15 MG/ML 1 ML VIAL IVP ONE (18:23)
[2020-11-15] MEDS: SODIUM CHLORIDE 0.9% 1,000 ML IV SCH ×2 (19:27→20:04)
[2020-11-15] MEDS: LACTATED RINGERS 1,000 ML IV SCH (19:37)
[2020-11-15] MEDS: TAMSULOSIN 0.4 MG CAP.ER.24H PO SCH (19:38)
--- NOTE | 2020-11-15 23:11 | P.PN ---
Subjective Principal diagnosis: The patient is admitted for continued abdominal pain. The patient is 65-year-old black male with significant history of small bowel obstruction. Lisinopril adhesions were supposedly done recently but the patient now takes continued have significant bloating. No flatus or BM noted yesterday. Underlying history of opiate dependence. Schedule for surgical repair Today. Objective - Vital Signs Vital signs: Vital Signs Temp 98.3 F 11/15/20 20:11 Pulse 80 11/15/20 20:18 Resp 18 11/15/20 20:18 BP 149/89 11/15/20 20:11 Pulse Ox 100 11/15/20 20:11 Intake & Output 11/15/20 11/15/20 11/16/20 06:59 18:59 06:59 Intake Total 1120 1750 Output Total 500 450 Balance 1120 1250 -450 Weight 106.594 kg Intake: IV 1750 Intake, IV Titration 1000 Amount Piperacillin-Tazobactam 3 100 .375 gm In Sodium Chloride 0.9% 100 ml @ 25 mls/hr IVPB Q8HR [facility] Rx# :[id number] Sodium Chloride 0.9% 1, 900 000 ml @ 75 mls/hr IV . [id number] [facility] Rx#:[id number] Oral 120 Output: Urine 450 450 Estimated Blood Loss 50 Other: Voiding Method Toilet Indwelling Catheter Urinal # Voids 1 1 1 - Constitutional General appearance: Present: obese - EENT Eyes: Absent: abnormal pupil - Neck Neck: Absent: lymphadenopathy - Respiratory Respiratory: bilateral: CTA - Cardiovascular Rhythm: regular Heart sounds: normal: S1, S2 Abnormal Heart Sounds: Absent: S3 Gallop - Gastrointestinal General gastrointestinal: Present: decreased bowel sounds, tenderness - Integumentary Integumentary: Absent: cellulitis - Labs CBC & Chem 7: 11/14/20 05:29 11/15/20 05:49 Labs: Abnormal Lab Results - Last 24 Hours (Table) 11/15/20 Range/Units 05:49 Potassium 3.3 L (3.5-5.1) mmol/L Chloride 108 H (98-107) mmol/L Glucose 108 H (74-99) mg/dL Total Protein 5.8 L (6.3-8.2) g/dL Albumin 2.8 L (3.5-5.0) g/dL Assessment and Plan (1) Small bowel obstruction Current Visit: Yes Status: Acute Code(s): K56.609 - UNSP INTESTNL OBST, UNSP TO PARTIAL VERSUS COMPLETE OBST SNOMED Code(s): 619187133 (2) DDD (degenerative disc disease), lumbar Current Visit: No Status: Acute Code(s): M51.36 - OTHER INTERVERTEBRAL DISC DEGENERATION, LUMBAR REGION SNOMED Code(s): 17001707 Plan: Titrate Dilaudid for pain control. Await surgical reevaluation. Hemodynamically stable otherwise. See orders. We will continue to follow.
[2020-11-16] MEDS: PIPERACILLIN-TAZOBACTAM 3.375 GM in SODIUM CHLORIDE 0.9% 100 ML IVPB SCH ×3 (00:41→16:10)
[2020-11-16] MEDS: HYDROmorphone 1 MG/ML 1 ML SYRINGE IVP PRN ×9 (00:51→20:02)
[2020-11-16] MEDS: ZOLPIDEM 5 MG TAB PO PRN ×2 (03:11→22:17)
[2020-11-16] MEDS: SODIUM CHLORIDE 0.9% 1,000 ML IV SCH ×7 (03:52→17:27)
[2020-11-16] MEDS: LACTATED RINGERS 1,000 ML IV SCH (07:14)
[2020-11-16 07:15] LABS: African American GFR (CKD) 89 (>60 ml/min/1.73 sqM); Anion Gap 8 mmol/L; Blood Urea Nitrogen 18 mg/dL (9-20); Calcium 8.3 mg/dL (8.4-10.2); Carbon Dioxide 22 mmol/L (22-30); Chloride 108 mmol/L (98-107); Glucose 141 mg/dL (74-99); Magnesium 1.7 mg/dL (1.6-2.3); Non-African American GFR(CKD) 77 (>60 ml/min/1.73 sqM); Phosphorus 4.2 mg/dL (2.5-4.5); Potassium 3.9 mmol/L (3.5-5.1); Sodium 138 mmol/L (137-145)
[2020-11-16] MEDS: ALBUTEROL NEBULIZED 2.5 MG/3 ML INHALATION SCH ×3 (07:21→21:37)
[2020-11-16] MEDS: HEPARIN SODIUM,PORCINE/PF 5,000 UNIT/0.5 ML SYRINGE SQ SCH ×3 (07:32→22:15)
[2020-11-16] MEDS: LORATADINE 10 MG TAB PO SCH (07:35)
[2020-11-16] MEDS: FINASTERIDE 5 MG TAB PO SCH (07:35)
[2020-11-16] MEDS: PANTOPRAZOLE 40 MG/10 ML VIAL IVP SCH ×2 (07:35→22:15)
[2020-11-16 08:46] LABS: Basophils % (A) 0 %; Eosinophils % (A) 0 %; HCT 37.8 % (39.0-53.0); HGB 12.1 gm/dL (13.0-17.5); Lymphocytes # (A) 1.1 k/uL (1.0-4.8); Lymphocytes % (A) 17 %; MCH 28.5 pg (25.0-35.0); MCHC 32.1 g/dL (31.0-37.0); Mean Platelet Volume 9.8; Monocytes # (A) 0.7 k/uL (0-1.0); Monocytes % (A) 10 %; Neutrophils # (A) 4.7 k/uL (1.3-7.7); Neutrophils % (A) 69 %; Platelet Count 225 k/uL (150-450); RBC 4.25 m/uL (4.30-5.90); RDW 15.7 % (11.5-15.5); WBC 6.8 k/uL (3.8-10.6)
[2020-11-16] MEDS ORDERED: LIDOCAINE 1% INJ 10MG/ML (20 ML MDV) SQ ONE (10:12)
--- NOTE | 2020-11-16 11:28 | P.PN ---
<Tom,Renee - Last Filed: 11/16/20 15:05> Subjective Progress Note Date: 11/16/20 CHIEF COMPLAINT: Small bowel obstruction HISTORY OF PRESENT ILLNESS: This a 65-year-old male with recurrent small bowel obstruction. He is postop day #1 status post small bowel decompression via enterotomy, exploratory laparotomy and extensive lysis of adhesions, small bowel enterectomy with primary anastomosis and placement of Prevena incisional wound VAC. The patient states he is having some abdominal discomfort, mostly near the incision site. He denies passing gas. He denies any nausea or vomiting. NG tube is in place with 450 mL output. Baxter catheter is intact with good urine output. He has been afebrile. WBC 6.8 hemoglobin 12.1 sodium 138 potassium 3.9 BUN 18 creatinine 1.03 calcium 8.3 magnesium 1.7 PHYSICAL EXAM: VITAL SIGNS: Reviewed GENERAL: Well-developed in no acute distress. HEENT: No sclera icterus. Extraocular movements grossly intact. Moist buccal mucosa. Head is atraumatic, normocephalic. Hears conversational speech. No nasal drainage. NECK: Supple without lymphadenopathy. CHEST: Non-labored respirations and equal bilateral excursions. CARDIOVASCULAR: Palpable 2+ radial pulses. ABDOMEN: Soft. Nondistended. Tender to palpation near incisional site. Prevena dressing intact with good suction. MUSCULOSKELETAL: No clubbing or cyanosis. NEUROLOGIC: No focal or lateralizing signs. Cranial nerves II through XII grossly intact. PSYCH: Appropriate affect. Alert and oriented to person, place and time. SKIN: Well perfused. Good skin turgor. ASSESSMENT: 1. Small bowel obstruction due to adhesions and small bowel stricture status post small bowel decompression via enterotomy, distal jejunum, decompressed Exploratory laparotomy and extensive lysis of adhesions Small bowel enterectomy with primary anastomosis, distal ileum Placement of PREVENA 20 cm incisional wound VAC system 2. Chronic pain syndrome 3. Inadequate protein intake 4. 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 Gastroesophageal reflux disease 6. Intra-abdominal ascites PLAN: -Discontinue NG tube -Advance to clear liquids -Continue Prevena dressing -Encourage incentive spirometer -Encourage ambulation -Continue pain medication as needed -PICC line ordered for TPN -Dietitian on consult to initiate TPN for nutrition support -Repeat labs in the morning -Continue Baxter catheter in morning at 0500 -Consult anesthesia for pain management -Will add acetaminophen and Toradol for pain The impression and plan of care has been dictated as directed. Dr. Steele I performed a history and examination of this patient, discussed the same with the dictator. I agree with the dictator's note ,documented as a scribe. Any additional findings or plans will be noted. Objective - Vital Signs Vital signs: Vital Signs Temp 98.8 F 11/16/20 05:00 Pulse 92 11/16/20 07:31 Resp 18 11/16/20 05:00 BP 142/76 11/16/20 05:00 Pulse Ox 96 11/16/20 05:00 Intake & Output 11/15/20 11/16/20 11/16/20 18:59 06:59 18:59 Intake Total 1750 Output Total 500 450 Balance 1250 -450 Weight 106.594 kg Intake: IV 1750 Output: Urine 450 450 Estimated Blood Loss 50 Other: Voiding Method Indwelling Catheter # Voids 1 1 - Labs CBC & Chem 7: 11/16/20 05:40 11/16/20 05:40 Labs: Abnormal Lab Results - Last 24 Hours (Table) 11/16/20 11/16/20 Range/Units 05:40 05:40 RBC 4.25 L (4.30-5.90) m/uL Hgb 12.1 L (13.0-17.5) gm/dL Hct 37.8 L (39.0-53.0) % RDW 15.7 H (11.5-15.5) % Chloride 108 H (98-107) mmol/L Glucose 141 H (74-99) mg/dL Calcium 8.3 L (8.4-10.2) mg/dL <Lizet Steele N - Last Filed: 11/18/20 12:44> Subjective CHIEF COMPLAINT: Small bowel obstruction HISTORY OF PRESENT ILLNESS: The patient is a 65 year old male status post open laparotomy, lysis of adhesions and small bowel resection. He has chronic pain syndrome and poor tolerance of pain. No passage of flatus. REVIEW OF ORGAN SYSTEMS: No fevers or chills. No chest pain. No shortness of breath. PHYSICAL EXAM: VITALS: Reviewed CONSTITUTIONAL: Well developed and in no acute distress. EYES: Conjuctivae without sclera icterus. Extraocular movements grossly intact. HEAD, EARS, NOSE, THROAT: Moist buccal mucosa. Head is atraumatic, normocephalic. Hears conversational speech. No nasal drainage. RESPIRATORY: Non-labored respirations and equal bilateral excursions. No gross wheezes. CARDIOVASCULAR: Regular rate and rhythm ABDOMEN: Dressing intact. No peritonitis. MUSCULOSKELETAL: No clubbing cyanosis. SKIN: Warm and well perfused with good skin turgor. NEUROLOGIC: Cranial nerves II through XII grossly intact. No focal or lateralizing signs. PSYCH: Appropriate affect. Alert and oriented to person, place and time. Displays appropriate insight. CLINCAL LABS: Reviewed. WBC normal at 6.8. ASSESSMENT: 1. Recurrent small bowel obstruction 2. Inadequate protein intake 3. Status post small bowel enterectomy extensive lysis of adhesions PLAN: 1. Continue with TPN. 2. Adjust pain management for scheduled nonnarcotics including acetaminophen, Toradol. 3. May benefit from pain consultation. 4. Ambulation encouraged. 5. May start liquid diet with discontinuation of NG tube Objective - Vital Signs Vital signs: Vital Signs Temp 98.2 F 11/17/20 11:05 Pulse 75 11/17/20 12:19 Resp 18 11/17/20 11:05 BP 170/105 11/17/20 11:05 Pulse Ox 99 11/17/20 11:05 Intake & Output 11/17/20 11/18/20 11/18/20 18:59 06:59 18:59 Intake Total 611.5 Output Total 400 Balance 211.5 Weight 106.594 kg Intake: Intake, IV Titration 611.5 Amount Mvi, Adult No.4 with Vit 611.5 K 10 ml Trace (Conc-1Ml/ Dose) 1 ml Parenteral Electrolytes 20 ml In Amino Acids 5 %/Dextrose 20 % 1,000 ml @ 30 mls/hr IV .Q24H [facility] Rx#: [id number] Output: Urine 400 Other: Voiding Method Urinal - Labs CBC & Chem 7: 11/16/20 05:40 11/17/20 05:39 Labs: Abnormal Lab Results - Last 24 Hours (Table) 11/17/20 Range/Units 12:49 POC Glucose (mg/dL) 115 H (75-99) mg/dL Assessment and Plan (1) Small bowel obstruction Status: Acute Code(s): K56.609 - UNSP INTESTNL OBST, UNSP TO PARTIAL VERSUS COMPLETE OBST SNOMED Code(s): 519860623 (2) Inadequate dietary intake of protein Status: Acute Code(s): E63.9 - NUTRITIONAL DEFICIENCY, UNSPECIFIED SNOMED Code(s): 581177352 (3) Chronic pain syndrome Status: Acute Code(s): G89.4 - CHRONIC PAIN SYNDROME SNOMED Code(s): 945465176 (4) Obesity (BMI 30-39.9) Status: Acute Code(s): E66.9 - OBESITY, UNSPECIFIED SNOMED Code(s): 926564779 (5) Opiate dependence Status: Acute Code(s): F11.20 - OPIOID DEPENDENCE, UNCOMPLICATED SNOMED Code(s): 45267799 (6) Hypokalemia Status: Acute Code(s): E87.6 - HYPOKALEMIA SNOMED Code(s): 29952402
--- NOTE | 2020-11-16 12:18 | IR ---
EXAMINATION TYPE: IR cvc insert >=5 years DATE OF EXAM: 11/16/2020 COMPARISON: NONE CLINICAL HISTORY: Post op lysis of adhesions. Needs long-term intravenous access for total parenteral nutrition. PROCEDURE: Hand hygiene obtained with soap and water and alcohol-based hand rub. After informed consent, the skin overlying the left basilic vein was localized with ultrasound and no nicola to be compressible and patent. An ultrasound image was obtained and submitted on the patient's c [place]. The overlying skin was prepped and draped and Lidocaine was used for local anesthesia. A skin ashok was made with a scalpel. Access was gained to the vein under ultrasound guidance with a 21 gau ge needle and a 0.018 inch wire was advanced. Access site was dilated with Peel-Away sheath and cath eter tailored to the appropriate length and advanced such that the distal tip is at the cavoatrial ju nction. Spot image was obtained verifying placement. Catheter was fixed to the skin and a sterile d ressing was placed following hemostasis. Catheter was aspirated and flushed with saline. Patient wa s discharged in stable condition without complication.Maximal barrier technique is utilized. Ultraso und image is documented on the chart. Ultrasound used with sterile technique. Fluoro time and fluoroscopic images submitted to document procedure: 29 intraoperative C-arm images, 0.4 minutes fluoroscopy time supplied IMPRESSION: STATUS POST ULTRASOUND AND FLUOROSCOPIC GUIDED PICC LINE PLACEMENT, READY FOR USE. THIS PROCEDURE WAS PERFORMED BY THE UNDERSIGNED.
[2020-11-16] MEDS ORDERED: MVI, ADULT NO.4 WITH VIT K 10 ML, TRACE (CONC-1ML/DOSE) 1 ML, PARENTERAL ELECTROLYTES 2... IV ONE ×4 (14:00)
[2020-11-16] MEDS: ACETAMINOPHEN IV (For NPO) 1,000 MG in EMPTY BAG 1 BAG IVPB SCH ×2 (14:29→18:12)
[2020-11-16] MEDS: MAGNESIUM SULFATE-D5W PMX 1 GM in DEXTROSE/WATER 1 100ML.BAG IVPB SCH ×2 (14:51→16:08)
[2020-11-16] MEDS: TAMSULOSIN 0.4 MG CAP.ER.24H PO SCH (16:15)
[2020-11-16] MEDS: KETOROLAC 15 MG/ML 1 ML VIAL IVP SCH (16:17)
[2020-11-16] MEDS ORDERED: 1: MVI, ADULT NO.4 WITH VIT K 10 ML, TRACE (CONC-1ML/DOSE) 1 ML in AMINO ACID 5%-D20W+LY IV SCH ×3 (17:00)
[2020-11-17 00:10] LABS: Glucose,Whole Blood 127 mg/dL (75-99)
[2020-11-17] MEDS: KETOROLAC 15 MG/ML 1 ML VIAL IVP SCH ×4 (00:11→16:51)
[2020-11-17] MEDS: ACETAMINOPHEN IV (For NPO) 1,000 MG in EMPTY BAG 1 BAG IVPB SCH ×2 (00:11→05:53)
[2020-11-17] MEDS: PIPERACILLIN-TAZOBACTAM 3.375 GM in SODIUM CHLORIDE 0.9% 100 ML IVPB SCH ×2 (00:12→08:52)
[2020-11-17] MEDS: HYDROmorphone 1 MG/ML 1 ML SYRINGE IVP PRN (01:06)
[2020-11-17] MEDS: SODIUM CHLORIDE 0.9% 1,000 ML IV SCH ×2 (01:21→08:54)
[2020-11-17] MEDS: INSULIN ASPART (NovoLOG) 100 UNIT/ML VIAL SQ SCH ×3 (01:21→12:47)
[2020-11-17 05:51] LABS: Glucose,Whole Blood 124 mg/dL (75-99)
[2020-11-17 06:51] LABS: African American GFR (CKD) >90 (>60 ml/min/1.73 sqM); Anion Gap 7 mmol/L; Blood Urea Nitrogen 16 mg/dL (9-20); Calcium 8.3 mg/dL (8.4-10.2); Carbon Dioxide 23 mmol/L (22-30); Chloride 108 mmol/L (98-107); Glucose 130 mg/dL (74-99); Magnesium 2.1 mg/dL (1.6-2.3); Non-African American GFR(CKD) 89 (>60 ml/min/1.73 sqM); Phosphorus 3.1 mg/dL (2.5-4.5); Potassium 3.4 mmol/L (3.5-5.1); Sodium 138 mmol/L (137-145)
[2020-11-17] MEDS: LACTATED RINGERS 1,000 ML IV SCH (07:03)
[2020-11-17] MEDS: ALBUTEROL NEBULIZED 2.5 MG/3 ML INHALATION SCH ×2 (07:32→12:05)
[2020-11-17 08:07] VITALS: RESP 18
--- NOTE | 2020-11-17 08:34 | P.PN ---
Subjective Principal diagnosis: The patient is admitted for continued abdominal pain. The patient is 65-year-old black male with significant history of small bowel obstruction. Lisinopril adhesions were supposedly done recently but the patient now takes continued have significant bloating. No flatus or BM noted yesterday. Underlying history of opiate dependence. Schedule for surgical repair yesterday. Patient is postop day #1 Objective - Vital Signs Vital signs: Vital Signs Temp 98.5 F 11/17/20 07:35 Pulse 75 11/17/20 07:42 Resp 18 11/17/20 07:35 BP 164/95 11/17/20 07:35 Pulse Ox 98 11/17/20 07:35 Intake & Output 11/16/20 11/17/20 11/17/20 18:59 06:59 18:59 Intake Total 3300 Output Total 850 Balance 3300 -850 Intake: Intake, IV Titration 3300 Amount ACETAMINOPHEN IV (For NPO 100 ) 1,000 mg In Empty Bag 1 bag @ 400 mls/hr IVPB Q6HR [facility] Rx#:[id number] Magnesium Sulfate-D5w Pmx 200 1 gm In Dextrose/Water 1 100ml.bag @ 100 mls/hr IVPB Q1H [facility] Rx#: [id number] Sodium Chloride 0.9% 1, 1000 000 ml @ 130 mls/hr IV . Q7H42M [facility] Rx#:[id number] Sodium Chloride 0.9% 1, 2000 000 ml @ 999 mls/hr IV . Q1H1M [facility] Rx#:[id number] Output: Urine 850 Other: Voiding Method Indwelling Catheter Indwelling Catheter # Voids 1 - Constitutional General appearance: Present: average body habitus - EENT Eyes: Absent: abnormal pupil - Neck Neck: Absent: lymphadenopathy - Respiratory Respiratory: bilateral: CTA - Cardiovascular Rhythm: regular Heart sounds: normal: S1, S2 Abnormal Heart Sounds: Absent: S3 Gallop - Gastrointestinal General gastrointestinal: Present: decreased bowel sounds, soft - Neurologic Neurologic: Absent: CNII-XII intact - Labs CBC & Chem 7: 11/16/20 05:40 11/17/20 05:39 Labs: Abnormal Lab Results - Last 24 Hours (Table) 11/16/20 11/17/20 11/17/20 Range/Units 05:40 00:08 05:39 RBC 4.25 L (4.30-5.90) m/uL Hgb 12.1 L (13.0-17.5) gm/dL Hct 37.8 L (39.0-53.0) % RDW 15.7 H (11.5-15.5) % Potassium 3.4 L (3.5-5.1) mmol/L Chloride 108 H (98-107) mmol/L Glucose 130 H (74-99) mg/dL POC Glucose (mg/dL) 127 H (75-99) mg/dL Calcium 8.3 L (8.4-10.2) mg/dL 11/17/20 Range/Units 05:49 RBC (4.30-5.90) m/uL Hgb (13.0-17.5) gm/dL Hct (39.0-53.0) % RDW (11.5-15.5) % Potassium (3.5-5.1) mmol/L Chloride (98-107) mmol/L Glucose (74-99) mg/dL POC Glucose (mg/dL) 124 H (75-99) mg/dL Calcium (8.4-10.2) mg/dL Assessment and Plan (1) Small bowel obstruction Current Visit: Yes Status: Acute Code(s): K56.609 - UNSP INTESTNL OBST, UNSP TO PARTIAL VERSUS COMPLETE OBST SNOMED Code(s): 747535970 (2) DDD (degenerative disc disease), lumbar Current Visit: No Status: Acute Code(s): M51.36 - OTHER INTERVERTEBRAL DISC DEGENERATION, LUMBAR REGION SNOMED Code(s): 02204304 Plan: Continue pulmonary toilet. Surgical postop protocol. Check CBC and CMP in a.m.
[2020-11-17] MEDS: HEPARIN SODIUM,PORCINE/PF 5,000 UNIT/0.5 ML SYRINGE SQ SCH (08:52)
[2020-11-17] MEDS: LORATADINE 10 MG TAB PO SCH (08:52)
[2020-11-17] MEDS: FINASTERIDE 5 MG TAB PO SCH (08:52)
[2020-11-17] MEDS: PANTOPRAZOLE 40 MG/10 ML VIAL IVP SCH (08:52)
[2020-11-17] MEDS: POTASSIUM CHLORIDE 20 MEQ in WATER FOR INJECTION 1 100ML.BAG IVPB SCH ×2 (10:09→12:52)
[2020-11-17 11:23] VITALS: BP 170/105; TEMP 98.2
[2020-11-17 12:20] VITALS: PULSE 75
[2020-11-17 12:50] LABS: Glucose,Whole Blood 115 mg/dL (75-99)
[2020-11-17] MEDS ORDERED: FAT EMULSION 20% 250 ML in EMPTY BAG 1 BAG IV SCH (14:00)
[2020-11-17] MEDS ORDERED: 1: MVI, ADULT NO.4 WITH VIT K 10 ML, TRACE (CONC-1ML/DOSE) 1 ML, PARENTERAL ELECTROLYTES IV SCH ×4 (14:00)
--- NOTE | 2020-11-17 14:19 | P.PN ---
Progress Note - Text Progress Note Date: 11/17/20 This is 65 years old male with a chronic history of severe low back pain,he is diagnosed with lumbar spondylosis lumbar, degenerative disc disease, he was treated as an outpatient with Percocet 10/325 every 6 hours when necessary and he was admitted recently to [facility] with a small bowel obstruction, Robotic abdominal surgery was done, is being managed with Dilaudid IV 1 mg every 2 hours he reported that the current medication is controlling his pain, and to continue current medication and wants patient discharged home he can continue his Percocet as an outpatient, patient being followed with Dr. Wang
--- NOTE | 2020-11-17 15:56 | P.DS ---
<Faye Noble - Last Filed: 11/17/20 15:52> Providers Expected date of discharge: 11/17/20 Hospital Course: Discharge diagnosis 1. Small bowel obstruction due to adhesions and small bowel stricture status post small bowel decompression via enterotomy, distal jejunum, 1800ml decompressed, Exploratory laparotomy and extensive lysis of adhesions, Small bowel enterectomy with primary anastomosis, distal ileum and Placement of PREVENA 20 cm incisional wound VAC system 2. Chronic pain syndrome 3. Inadequate protein intake 4. 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 Gastroesophageal reflux disease 6. Intra-abdominal ascites 7. Hypokalemia Hospital course The patient is a 65-year-old male who presents with recurrent small bowel obstruction less than 3 weeks ago following prior extensive lysis of adhesions. Multiple diagnostic studies including small bowel follow-through and computed tomography scan were performed confirming focal right lower quadrant internal hernia versus causing obstruction. Patient is status post small bowel decompression via enterotomy, distal jejunum, 1800ml decompressed, Exploratory laparotomy and extensive lysis of adhesions, Small bowel enterectomy with primary anastomosis, distal ileum and Placement of PREVENA 20 cm incisional w ound VAC system patient tolerated surgery well. He is tolerating diet. His pain is controlled. He is up and ambulating. He is having flatus. He is able to urinate. Patient is stable for discharge. Physician [employer]endi[employer] Supervisor note has been reviewed by physician. Signing provider agrees with the documented findings, assessment, and plan of care. Patient Condition at Discharge: Stable Plan - Discharge Summary New Discharge Prescriptions: Continue Zolpidem Tartrate [Ambien] 10 mg PO HS PRN PRN Reason: SLEEP oxyCODONE-APAP 10-325MG [Percocet 10-325 mg] 1 tab PO QID PRN PRN Reason: Pain carisoprodoL [Soma] 350 mg PO QID PRN PRN Reason: Pain Multivitamin [Men's Multi-Vitamin] 1 tab PO DAILY Cetirizine HCl [Zyrtec] 10 mg PO BID Dutasteride [Avodart] 0.5 mg PO QAM Pantoprazole Sodium [Protonix] 40 mg PO QAM Iron Tab 27 mg PO DAILY Tamsulosin [Flomax] 0.8 mg PO DAILY@1600 Tadalafil [Cialis] 5 mg PO DAILY PRN PRN Reason: E.D. Ibuprofen [Motrin] 600 mg PO Q8HR PRN #30 tab PRN Reason: Pain Acetaminophen Tab [Tylenol] 1,000 mg PO Q6HR PRN #30 tablet PRN Reason: Pain Simethicone [Gas-X] 125 mg PO AC-TID PRN #20 cap PRN Reason: Pain Discharge Medication List Zolpidem Tartrate [Ambien] 10 mg PO HS PRN 02/17/14 [History] oxyCODONE-APAP 10-325MG [Percocet 10-325 mg] 1 tab PO QID PRN 05/31/14 [History] carisoprodoL [Soma] 350 mg PO QID PRN 07/04/16 [History] Multivitamin [Men's Multi-Vitamin] 1 tab PO DAILY 10/14/16 [History] Cetirizine HCl [Zyrtec] 10 mg PO BID 01/15/18 [History] Dutasteride [Avodart] 0.5 mg PO QAM 03/16/20 [History] Iron Tab 27 mg PO DAILY 03/16/20 [History] Pantoprazole Sodium [Protonix] 40 mg PO QAM 03/16/20 [History] Tadalafil [Cialis] 5 mg PO DAILY PRN 03/29/20 [History] Tamsulosin [Flomax] 0.8 mg PO DAILY@1600 03/29/20 [History] Acetaminophen Tab [Tylenol] 1,000 mg PO Q6HR PRN #30 tablet 10/30/20 [Rx] Ibuprofen [Motrin] 600 mg PO Q8HR PRN #30 tab 10/30/20 [Rx] Simethicone [Gas-X] 125 mg PO AC-TID PRN #20 cap 10/30/20 [Rx] Follow up Appointment(s)/Referral(s): Shanu Wang MD [Primary Care Provider] - 1-2 days (The office is closed please call and make your follow up appointment on friday.) Lizet Steele MD [STAFF PHYSICIAN] - 11/21/20 (Office is closed please call and make follow up appointment.) Jennifer Ventura MD [STAFF PHYSICIAN] - 2 Weeks (The office will contact you with an appointment time and date.) Patient Instructions/Handouts: [facility] Closed Incision Management System Discharge Instructions, Low Fiber Diet (DC) Activity/Diet/Wound Care/Special Instructions: Wear abdominal binder at all times for comfort. No lifting over 4 pounds in 4 weeks until Dec 13. No showering at this time. Patient can sponge bathe until seen by surgeon in office. No bath tub soaks for two weeks until Nov 29 Use ice along incisions for the today to prevent swelling. Keep the Prevena incisional dressing in place until seen by surgeon Discharge Disposition: HOME SELF-CARE <Lizet Steele - Last Filed: 11/18/20 12:49> Providers Date of admission: 11/10/20 07:12 Attending physician: Lizet Steele Consults: 11/11/20 13:54 Consult Physician Routine Consulting Provider: Jennifer Ventura Consult Reason/Comments: chest pain Do you want consulting provider notified?: Yes 11/15/20 12:08 Consult Physician Routine Consulting Provider: [facility] Consult Reason/Comments: Anesthesia Care Do you want consulting provider notified?: Yes 11/16/20 14:47 Consult to Anesthesia Routine Consulting Provider: [facility] Reason/Comments: pain management Primary care physician: Shaun Felipe - Discharge Diagnosis(es) (1) Small bowel obstruction Status: Acute (2) Inadequate dietary intake of protein Status: Acute (3) Chronic pain syndrome Status: Acute (4) Obesity (BMI 30-39.9) Status: Acute (5) Opiate dependence Status: Acute (6) Hypokalemia Status: Acute Hospital Course: POSTOPERATIVE DIAGNOSES: 1. Small bowel obstruction due to adhesions and small bowel stricture 2. Chronic pain syndrome 3. Inadequate protein intake 4. 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 Gastroesophageal reflux disease 6. Intra-abdominal ascites COURSE: The patient is a 65 year old male admitted with recurrent small bowel obstruction after lysis of adhesions or 3 weeks ago. Patient returned to the hospital with recurrent symptoms. Multiple diagnostic studies performed: Small bowel series and computed tomography scan confirming right lower quadrant obstruction. Despite conservative management, patient continued a progressive symptoms. Exploratory laparotomy revealed multiple small bowel strictures along the right lower quadrant requiring small bowel resection including severe intra- abdominal adhesions. Postoperatively, patient was able to pass moderate flatus. His pre-existing history of obstructive uropathy. Options including Baxter catheter upon discharge reviewed versus straight cath prior to discharge. Patient opted for straight cath prior to discharge if needed. He was tolerating full liquid diet. His pain was well-controlled. Patient will continue his narcotic pain plan with this provider. Follow-up as outpatient described for discontinuance of dressing in the office. REVIEW OF ORGAN SYSTEMS: No chest pain. No shortness of breath. PHYSICAL EXAM: VITALS: Reviewed CONSTITUTIONAL: Well developed and in no acute distress. EYES: Conjuctivae without sclera icterus. Extraocular movements grossly intact. HEAD, EARS, NOSE, THROAT: Moist buccal mucosa. Head is atraumatic, normocephalic. Hears conversational speech. No nasal drainage. RESPIRATORY: Non-labored respirations and equal bilateral excursions. No gross wheezes. CARDIOVASCULAR: Regular rate and rhythm ABDOMEN: Dressing clean dry and intact. MUSCULOSKELETAL: No clubbing cyanosis. SKIN: Warm and well perfused with good skin turgor. NEUROLOGIC: Cranial nerves II through XII grossly intact. No focal or lateralizing signs. PSYCH: Appropriate affect. Alert and oriented to person, place and time. Displays appropriate insight. CLINCAL LABS: Reviewed. WBC normal. ASSESSMENT: 1. Recurrent small bowel obstruction 2. Inadequate protein intake PLAN: 1. Patient clinically stable for discharge.
[2020-11-17] MEDS: TAMSULOSIN 0.4 MG CAP.ER.24H PO SCH (16:51)
[2020-11-17] MEDS ORDERED: 1: MVI, ADULT NO.4 WITH VIT K 10 ML, TRACE (CONC-1ML/DOSE) 1 ML, POTASSIUM CHLORIDE 20 M IV SCH ×4 (18:00)
--- NOTE | 2020-11-20 10:45 | CDI ---
Documentation Clarification Form Date: 11/20/20 From: Teagan Coe Admit Date: 11/10/2020 07:12:00 AM Patient Name: Nikkie Rosario Visit Number: [id number] Discharge Date: 11/17/2020 05:55:00 PM ATTENTION: The Clinical Documentation Specialists (CDI) and [facility] Coding Staff appreciate your assistance in clarifying documentation. Please respond to the clarification below the line at the bottom and electronically sign. The CDI & [facility] Coding staff will review the response and follow-up if needed. Please note: Queries are made part of the Legal Health Record. If you have any questions, please contact the author of this message via ITS. Dr. Lizet Steele, Inadequate protein intake documented in 11/13, 11/14, 11/15 PNs and DS indicates this patient meets criteria for malnutrition dx & severity. Based on this information and the findings below, is there an additional diagnosis that is clinically appropriate for this patient? History/Risk Factors: intestinal adhesions of small bowel, obstructive and reflux uropathy with BPH, lumbar DJD, lumbar spondylosis Clinical Indicators: Inadequate protein intake. TPN started 11/[address] Consult Assessment: NPO/clear liquid >4 days, NG tube in place, increased PO intake from 50%-75% Current BMI: 32.8 Total Protein: 6.6, 6.8, 5.7, 5.9, 5.8 Albumin: 3.5, 3.7, 3.40, 3.0, 2.8 Treatment: TPN, monitor diet advancement Is there an additional diagnosis that is clinically appropriate for this patient? [ ] Mild Protein-Calorie Malnutrition [ ] Moderate Protein-Calorie Malnutrition [ ] Severe Protein-Calorie Malnutrition [ ] Other condition, please specify [ ] Unable to Determine [ ] Mild Protein-Calorie Malnutrition 11/20/20 [facility]
--- NOTE | 2020-11-20 10:58 | CDI ---
Documentation Clarification Form Date: 11/20/20 From: Teagan Coe Admit Date: 11/10/2020 07:12:00 AM Patient Name: Nikkie Rosario Visit Number: [id number] Discharge Date: 11/17/2020 05:55:00 PM ATTENTION: The Clinical Documentation Specialists (CDI) and [facility] Coding Staff appreciate your assistance in clarifying documentation. Please respond to the clarification below the line at the bottom and electronically sign. The CDI & [facility] Coding staff will review the response and follow-up if needed. Please note: Queries are made part of the Legal Health Record. If you have any questions, please contact the author of this message via ITS. Dr. Lizet Steele, Possible bibasilar pneumonia possibly gram-negative with acute hypoxic respiratory failure is documented in Dr Hoffmann's 11/12 PN, but is not noted in subsequent documentation. Clarification is requested. History/Risk Factors: intestinal adhesions of small bowel, obstructive and reflux uropathy with BPH, lumbar DJD, lumbar spondylosis Clinical Indicators: O2 sat dipped to 91 on 11/12, CO2 dipped to 21.0 on 11/13 11/[address]-There is bilateral lower lobe pulmonary infiltrates and atelectasis which appear new compared to old exam. CXR on 11/13-There may be aortic aneurysm. Possible left lower lobe atelectasis and associated effusion versus pneumonia Treatment: IV Zoysn, Please clarify if the diagnoses of possible gram negative pneumonia with acute hypoxic respiratory failure: [ ] Possible gram negative pneumonia with acute hypoxic respiratory failure confirmed, remains under treatment [ ] Possible gram negative pneumonia with acute hypoxic respiratory failure ruled out [ ] Other condition, please specify [ ] Unable to determine [ ] Other condition, please specify _Atelectasis____ [facility]
== END 2020-11-17 17:55 | disposition home or self-care (01) | DRG 330 ==
LOC: EC 05:45 → 5NMEDONC 07:12
PROVIDERS: ADMIT Surgery Plastic and Reconstructive Surgery; ATTEND Surgery Plastic and Reconstructive Surgery
PROC: 0D9670Z Drainage of Stomach with Drainage Device, Via Natural or Artificial Opening (ICD-10-PCS; 2020-11-10)
PROC: 0DBU0ZZ Excision of Omentum, Open Approach (ICD-10-PCS; principal; 2020-11-15 13:45)
PROC: 0DB80ZZ Excision of Small Intestine, Open Approach (ICD-10-PCS; principal; 2020-11-15 13:45)
PROC: 0D9A0ZZ Drainage of Jejunum, Open Approach (ICD-10-PCS; principal; 2020-11-15 13:45)
PROC: 02HV33Z Insertion of Infusion Device into Superior Vena Cava, Percutaneous Approach (ICD-10-PCS; 2020-11-16)
PROC: 3E0436Z Introduction of Nutritional Substance into Central Vein, Percutaneous Approach (ICD-10-PCS; 2020-11-16)
DX: K56.50 Intestinal adhesions [bands], unspecified as to partial versus complete obstruction (principal); N13.8 Other obstructive and reflux uropathy; R18.8 Other ascites; E44.1 Mild protein-calorie malnutrition; F11.20 Opioid dependence, uncomplicated; J98.11 Atelectasis; Z20.822 Contact with and (suspected) exposure to COVID-19; G89.4 Chronic pain syndrome; N40.1 Benign prostatic hyperplasia with lower urinary tract symptoms; M51.36 Other intervertebral disc degeneration, lumbar region; M47.816 Spondylosis without myelopathy or radiculopathy, lumbar region; E87.6 Hypokalemia; R07.89 Other chest pain; K21.9 Gastro-esophageal reflux disease without esophagitis; H91.91 Unspecified hearing loss, right ear; R79.89 Other specified abnormal findings of blood chemistry; E66.9 Obesity, unspecified; Z68.32 Body mass index [BMI] 32.0-32.9, adult; Z79.899 Other long term (current) drug therapy; Z86.14 Personal history of Methicillin resistant Staphylococcus aureus infection; Z87.19 Personal history of other diseases of the digestive system; Z96.643 Presence of artificial hip joint, bilateral; Z96.651 Presence of right artificial knee joint; Z98.890 Other specified postprocedural states; Z71.3 Dietary counseling and surveillance; Z82.49 Family history of ischemic heart disease and other diseases of the circulatory system; Z83.2 Family history of diseases of the blood and blood-forming organs and certain disorders involving the immune mechanism
CPT/HCPCS: 36415; 36573; 64999; 71045; 71046; 71275; 74018; 74019; 74177; 74250; 80048; 80053; 81003; 82150; 82330; 82565; 83690; 83735; 84100; 84478; 84484; 84520; 85025; 85027; 85379; 85610; 86850; 86900; 86901; 87635; 88307; 93005; 93306; 94640; 96374; 96375; 99284; 99285

== ENCOUNTER 2020-11-19 10:57 | Inpatient (IN) | payer MEDICARE, OTHER ==
[2020-11-19] MEDS ORDERED: SODIUM CHLORIDE 0.9% 500 ML 500 ML IV STA (12:30)
[2020-11-19] MEDS ORDERED: MORPHINE SULFATE 4 MG/ML SYRINGE IV STA (12:30)
[2020-11-19] MEDS ORDERED: ONDANSETRON 4 MG/2 ML VIAL IVP STA (12:30)
--- NOTE | 2020-11-19 13:10 | ED ---
Abdominal Pain HPI - General Chief Complaint: Abdominal Pain Stated Complaint: post op-abd pain & vomiting Time Seen by Provider: 11/19/20 11:51 Source: patient Mode of arrival: ambulatory Limitations: physical limitation - History of Present Illness Initial Comments: 65 year-old male patient presents to the emergency department for evaluation of abdominal pain, distension, and vomiting. Patient is post op day #4 after having bowel resection by Dr. Steele. He states that he was discharged a couple of days ago. States he has had not a bowel movement or passed gas since discharged. States that he feels his incisional pain is minimal and feels that his pain is deeper. He states that he had two episodes of vomiting today and it was "dark and foul smelling". He has been unable to eat or drink. Reports normal urination. States he he has had hot flashes and cold chills. Has had some sweating. Patient denies any recent rash, cough, shortness of breath, chest pain, back pain, numbness, tingling, dizziness, weakness, hematuria, dysuria, urinary urgency, urinary frequency, headache, visual changes, or any other complaints. - Related Data Home Medications Medication Instructions Recorded Confirmed oxyCODONE-APAP 10-325MG [Percocet 1 tab PO QID PRN 05/31/14 11/19/20 10-325 mg] carisoprodoL [Soma] 350 mg PO QID PRN 07/04/16 11/19/20 Multivitamin [Men's Multi-Vitamin] 1 tab PO DAILY 10/14/16 11/19/20 Cetirizine HCl [Zyrtec] 10 mg PO BID 01/15/18 11/19/20 Dutasteride [Avodart] 0.5 mg PO DAILY 03/16/20 11/19/20 Iron Tab 27 mg PO DAILY 03/16/20 11/19/20 Pantoprazole Sodium [Protonix] 40 mg PO DAILY 03/16/20 11/19/20 Tadalafil [Cialis] 5 mg PO DAILY PRN 03/29/20 11/19/20 Tamsulosin [Flomax] 0.8 mg PO DAILY@1600 03/29/20 11/19/20 Ibuprofen [Motrin] 600 mg PO Q8H PRN 11/19/20 11/19/20 Zolpidem [Ambien] 10 mg PO HS PRN 11/19/20 11/19/20 Previous Rx's Medication Instructions Recorded Acetaminophen Tab [Tylenol] 1,000 mg PO Q6HR PRN #30 tablet 10/30/20 Simethicone [Gas-X] 125 mg PO AC-TID PRN #20 cap 10/30/20 Allergies Allergy/AdvReac Type Severity Reaction Status Date / Time No Known Allergies Allergy Verified 11/19/20 14:49 Review of Systems ROS Statement: Those systems with pertinent positive or pertinent negative responses have been documented in the HPI. ROS Other: All systems not noted in ROS Statement are negative. Past Medical History Past Medical History: GERD/Reflux, Hearing Disorder / Deafness, Osteoarthritis (OA), Prostate Disorder Additional Past Medical History / Comment(s): Deaf in right ear, BACK PAIN, DJD, enlarged prostate, just d/c from [facility] for abd. pain related to surgery scheduled, feels better, bowel obstruction History of Any Multi-Drug Resistant Organisms: MRSA Date of last positivie culture/infection: 2014 MDRO Source:: nose Past Surgical History: Back Surgery, Hernia Repair, Joint Replacement, Orthopedic Surgery Additional Past Surgical History / Comment(s): Back surgery 2, right knee replacement, right hip replacement, left hip replacement X2, PAIN PROCEDURES, COLLARBONE REPAIRED, right inguinal repair., bowel surgery r/t obstruction part of colon removed Past Anesthesia/Blood Transfusion Reactions: No Reported Reaction Additional Past Anesthesia/Blood Transfusion Reaction / Comment(s): No hx blood transfusion. Past Psychological History: No Psychological Hx Reported Smoking Status: Never smoker Past Alcohol Use History: Occasional Past Drug Use History: None Reported - Past Family History Father Family Medical History: Congestive Heart Failure (CHF) Brother(s) Family Medical History: Deep Vein Thrombosis (DVT) General Exam Limitations: physical limitation General appearance: alert, in no apparent distress, other (This is a well- developed, well-nourished adult male patient in no acute distress. Vital signs upon presentation are temperature 98.9F, pulse 72, respirations 18, blood pressure 170/91, pulse ox 98% on room air.) Eye exam: Present: normal appearance, PERRL, EOMI. Absent: scleral icterus, conjunctival injection, periorbital swelling ENT exam: Present: normal exam, normal oropharynx, mucous membranes moist Respiratory exam: Present: normal lung sounds bilaterally. Absent: respiratory distress, wheezes, rales, rhonchi, stridor Cardiovascular Exam: Present: regular rate, normal rhythm, normal heart sounds. Absent: systolic murmur, diastolic murmur, rubs, gallop, clicks GI/Abdominal exam: Present: distended, tenderness (Generalized), hyperactive bowel sounds, other (Midline incision, dressing intact no drainage, drain in place.). Absent: guarding, rebound, rigid Neurological exam: Present: alert, oriented X3, CN II-XII intact Psychiatric exam: Present: normal affect, normal mood Skin exam: Present: warm, dry, intact, normal color. Absent: rash Course Vital Signs 11/19/20 11:39 Temperature 98.9 F Pulse Rate 72 Respiratory 18 Rate Blood Pressure 170/91 O2 Sat by Pulse 98 Oximetry Medical Decision Making - Medical Decision Making 65-year-old male patient presenting to the emergency department today for evaluation of abdominal pain, distention, vomiting, not passing gas or stool. He is postop day 4 after having bowel resection with Dr. Steele. Physical examination did reveal generalized abdominal distention mild tenderness. Labs reviewed and did reveal mildly decreased potassium which was replaced IV. CT abdomen and pelvis is obtained and showed markedly dilated small bowel consistent with mechanical bowel structure, dilation is worse compared to previous exam. I did discuss the case with on-call surgeon Dr. Barraza who recommends admission, NG tube, IV fluids, antibiotics. I did discuss findings and results with the patient. He refuses to have NG tube placed. He has had no vomiting since arrival, we will maintain nothing by mouth diet. He'll be admitted to the hospital. He is agreeable. Case discussed with my attending Dr. Monterroso. - Lab Data Result diagrams: 11/19/20 13:29 11/19/20 13:29 Lab Results 11/19/20 11/19/20 11/19/20 Range/Units 13:29 13:29 13:29 WBC 6.7 (3.8-10.6) k/uL RBC 4.12 L (4.30-5.90) m/uL Hgb 11.8 L (13.0-17.5) gm/dL Hct 36.1 L (39.0-53.0) % MCV 87.6 (80.0-100.0) fL MCH 28.6 (25.0-35.0) pg MCHC 32.7 (31.0-37.0) g/dL RDW 15.4 (11.5-15.5) % Plt Count 273 (150-450) k/uL MPV 8.2 Neutrophils % 71 % Lymphocytes % 16 % Monocytes % 7 % Eosinophils % 4 % Basophils % 1 % Neutrophils # 4.7 (1.3-7.7) k/uL Lymphocytes # 1.1 (1.0-4.8) k/uL Monocytes # 0.5 (0-1.0) k/uL Eosinophils # 0.3 (0-0.7) k/uL Basophils # 0.0 (0-0.2) k/uL Sodium 139 (137-145) mmol/L Potassium 3.3 L (3.5-5.1) mmol/L Chloride 104 (98-107) mmol/L Carbon Dioxide 26 (22-30) mmol/L Anion Gap 9 mmol/L BUN 16 (9-20) mg/dL Creatinine 0.83 (0.66-1.25) mg/dL Est GFR (CKD-EPI)AfAm >90 (>60 ml/min/1.73 sqM) Est GFR (CKD-EPI)NonAf >90 (>60 ml/min/1.73 sqM) Glucose 103 H (74-99) mg/dL Plasma Lactic Acid Everette (0.7-2.0) mmol/L Calcium 9.0 (8.4-10.2) mg/dL Total Bilirubin 0.6 (0.2-1.3) mg/dL AST 39 (17-59) U/L ALT 26 (4-49) U/L Alkaline Phosphatase 103 (38-126) U/L Total Protein 6.2 L (6.3-8.2) g/dL Albumin 3.0 L (3.5-5.0) g/dL Lipase 16 L (23-300) U/L Urine Color Yellow Urine Appearance Clear (Clear) Urine pH 7.0 (5.0-8.0) Ur Specific Nunda 1.031 (1.001-1.035) Urine Protein 1+ H (Negative) Urine Glucose (UA) Negative (Negative) Urine Ketones 2+ H (Negative) Urine Blood Negative (Negative) Urine Nitrite Negative (Negative) Urine Bilirubin 1+ H (Negative) Urine Urobilinogen <2.0 (<2.0) mg/dL Ur Leukocyte Esterase Negative (Negative) Urine RBC 4 (0-5) /hpf Urine WBC 1 (0-5) /hpf Ur Squamous Epith Cells <1 (0-4) /hpf Urine Bacteria Rare H (None) /hpf Urine Mucus Moderate H (None) /hpf 11/19/20 Range/Units 13:29 WBC (3.8-10.6) k/uL RBC (4.30-5.90) m/uL Hgb (13.0-17.5) gm/dL Hct (39.0-53.0) % MCV (80.0-100.0) fL MCH (25.0-35.0) pg MCHC (31.0-37.0) g/dL RDW (11.5-15.5) % Plt Count (150-450) k/uL MPV Neutrophils % % Lymphocytes % % Monocytes % % Eosinophils % % Basophils % % Neutrophils # (1.3-7.7) k/uL Lymphocytes # (1.0-4.8) k/uL Monocytes # (0-1.0) k/uL Eosinophils # (0-0.7) k/uL Basophils # (0-0.2) k/uL Sodium (137-145) mmol/L Potassium (3.5-5.1) mmol/L Chloride (98-107) mmol/L Carbon Dioxide (22-30) mmol/L Anion Gap mmol/L BUN (9-20) mg/dL Creatinine (0.66-1.25) mg/dL Est GFR (CKD-EPI)AfAm (>60 ml/min/1.73 sqM) Est GFR (CKD-EPI)NonAf (>60 ml/min/1.73 sqM) Glucose (74-99) mg/dL Plasma Lactic Acid Everette 0.9 (0.7-2.0) mmol/L Calcium (8.4-10.2) mg/dL Total Bilirubin (0.2-1.3) mg/dL AST (17-59) U/L ALT (4-49) U/L Alkaline Phosphatase (38-126) U/L Total Protein (6.3-8.2) g/dL Albumin (3.5-5.0) g/dL Lipase (23-300) U/L Urine Color Urine Appearance (Clear) Urine pH (5.0-8.0) Ur Specific Nunda (1.001-1.035) Urine Protein (Negative) Urine Glucose (UA) (Negative) Urine Ketones (Negative) Urine Blood (Negative) Urine Nitrite (Negative) Urine Bilirubin (Negative) Urine Urobilinogen (<2.0) mg/dL Ur Leukocyte Esterase (Negative) Urine RBC (0-5) /hpf Urine WBC (0-5) /hpf Ur Squamous Epith Cells (0-4) /hpf Urine Bacteria (None) /hpf Urine Mucus (None) /hpf - Radiology Data Radiology results: report reviewed, image reviewed CT abdomen and pelvis with contrast was obtained. Report is reviewed in its entirety. Impression by Dr. Thurston shows markedly dilated small bowel suggestive of ileus or mechanical bowel obstruction. Transition point not seen. Recent surgery with pneumoperitoneum. Dilated small bowel appears increased compared to last exam. Bilateral basilar pulmonary infiltrates and atelectasis and pleural fluid slightly increased compared to old exam. Disposition Clinical Impression: Bowel obstruction Disposition: ADMITTED IP TO THIS [facility] Condition: Serious Decision to Admit Reason: Admit from EC Decision Date: 11/19/20 Decision Time: 15:38
[2020-11-19 13:41] LABS: Basophils % (A) 1 %; Eosinophils # (A) 0.3 k/uL (0-0.7); Eosinophils % (A) 4 %; HCT 36.1 % (39.0-53.0); HGB 11.8 gm/dL (13.0-17.5); Lymphocytes # (A) 1.1 k/uL (1.0-4.8); Lymphocytes % (A) 16 %; MCH 28.6 pg (25.0-35.0); MCHC 32.7 g/dL (31.0-37.0); MCV 87.6 fL (80.0-100.0); Mean Platelet Volume 8.2; Monocytes # (A) 0.5 k/uL (0-1.0); Monocytes % (A) 7 %; Neutrophils # (A) 4.7 k/uL (1.3-7.7); Neutrophils % (A) 71 %; Platelet Count 273 k/uL (150-450); RBC 4.12 m/uL (4.30-5.90); RDW 15.4 % (11.5-15.5); WBC 6.7 k/uL (3.8-10.6)
[2020-11-19 13:58] LABS: ALT 26 U/L (4-49); AST 39 U/L (17-59); African American GFR (CKD) >90 (>60 ml/min/1.73 sqM); Alkaline Phosphatase 103 U/L (38-126); Anion Gap 9 mmol/L; Blood Urea Nitrogen 16 mg/dL (9-20); Carbon Dioxide 26 mmol/L (22-30); Chloride 104 mmol/L (98-107); Glucose 103 mg/dL (74-99); Lipase 16 U/L (23-300); Non-African American GFR(CKD) >90 (>60 ml/min/1.73 sqM); Potassium 3.3 mmol/L (3.5-5.1); Sodium 139 mmol/L (137-145); Total Bilirubin 0.6 mg/dL (0.2-1.3); Total Protein 6.2 g/dL (6.3-8.2)
--- NOTE | 2020-11-19 15:01 | CT ---
EXAMINATION TYPE: CT abdomen pelvis w con DATE OF EXAM: 11/19/2020 COMPARISON: 11/13/2020 HISTORY: recnt bowel resection on and vomiting black CT DLP: 1956.2 mGycm Automated exposure control for dose reduction was used. CONTRAST: Performed with IV Contrast, patient injected with 100 mL of Isovue 300. Images obtained from the diaphragm to the floor the pelvis with IV contrast. There are bilateral pleural effusions. There is infiltrate and atelectasis at both lung bases. Heart size is fairly normal. There is no pericardial effusion. There is pneumoperitoneum consistent with re cent surgery. There is dilated multiple small bowel loops with fluid levels. Small bowel measures up to 5 cm. There is contrast material in the large bowel. The distal ileum appears to have more normal diameter. Transition point not seen. There is no adrenal mass. There is 2 cm cyst lateral left kidney. There is 3 mm calculus in the upper pole right kidney. There is no retroperitoneal adenopathy. There is no ascites. Bladder distends smo othly. There is metal artifact from bilateral hip prosthesis. I see no pelvic mass. There is posterio r fusion surgery in the lumbar spine from L3 to L5. Lumbar vertebra have normal alignment. IMPRESSION: Markedly dilated small bowel suggestive of ileus or mechanical bowel obstruction. Transition point no t seen. Recent surgery with pneumoperitoneum. Dilated small bowel appears increased compared to last exam. Bilateral basilar pulmonary infiltrates and atelectasis and pleural fluid slightly increased compared to old exam.
[2020-11-19] MEDS ORDERED: Potassium Replacement Protocol 1 EACH MISC MISCELLANE PRN (15:16)
[2020-11-19 15:35] LABS: Appearance,Urine Clear (Clear); Bacteria,Urine Rare /hpf; Bilirubin,Urine 1+ (Negative); Blood,Urine Negative (Negative); Color,Urine Yellow; Glucose,Urine (UA) Negative (Negative); Ketones,Urine 2+ (Negative); Leukocyte Esterase,Urine Negative (Negative); Mucus,Urine Moderate /hpf; Nitrite,Urine Negative (Negative); Protein,Urine 1+ (Negative); RBC,Urine 4 /hpf (0-5); Specific Gravity,Urine 1.031 (1.001-1.035); Squamous Epithelial Cell,Urine <1 /hpf (0-4); Urobilinogen,Urine <2.0 mg/dL (<2.0); WBC,Urine 1 /hpf (0-5)
[2020-11-19] MEDS ORDERED: PIPERACILLIN-TAZOBACTAM 3.375 GM in SODIUM CHLORIDE 0.9% 100 ML IVPB STA (15:37)
[2020-11-19] MEDS ORDERED: NALOXONE 0.4 MG/ML 1 ML VIAL IV PRN (15:37)
[2020-11-19] MEDS: POTASSIUM CHLORIDE 10 MEQ in WATER FOR INJECTION 1 100ML.BAG IVPB SCH ×3 (15:42→23:33)
[2020-11-19] MEDS: ONDANSETRON 4 MG/2 ML VIAL IVP PRN (19:16)
[2020-11-19] MEDS: MORPHINE SULFATE 4 MG/ML SYRINGE IV PRN ×2 (19:17→23:34)
[2020-11-19] MEDS: SODIUM CHLORIDE 0.9% 1,000 ML IV SCH (19:17)
[2020-11-20] MEDS: POTASSIUM CHLORIDE 10 MEQ in WATER FOR INJECTION 1 100ML.BAG IVPB SCH ×3 (02:26→21:04)
[2020-11-20] MEDS: SODIUM CHLORIDE 0.9% 1,000 ML IV SCH (02:27)
[2020-11-20] MEDS: MORPHINE SULFATE 4 MG/ML SYRINGE IV PRN ×5 (03:39→21:08)
[2020-11-20] MEDS: ONDANSETRON 4 MG/2 ML VIAL IVP PRN ×3 (03:40→21:07)
[2020-11-20] MEDS: PIPERACILLIN-TAZOBACTAM 3.375 GM in SODIUM CHLORIDE 0.9% 100 ML IVPB SCH ×3 (04:13→21:05)
[2020-11-20 07:03] LABS: Basophils % (A) 0 %; Eosinophils # (A) 0.2 k/uL (0-0.7); Eosinophils % (A) 3 %; HCT 35.2 % (39.0-53.0); HGB 11.2 gm/dL (13.0-17.5); Lymphocytes % (A) 16 %; MCH 27.7 pg (25.0-35.0); MCHC 31.9 g/dL (31.0-37.0); MCV 86.8 fL (80.0-100.0); Mean Platelet Volume 8.2; Monocytes # (A) 0.5 k/uL (0-1.0); Monocytes % (A) 7 %; Neutrophils # (A) 4.6 k/uL (1.3-7.7); Neutrophils % (A) 71 %; Platelet Count 267 k/uL (150-450); RBC 4.06 m/uL (4.30-5.90); RDW 15.9 % (11.5-15.5); WBC 6.4 k/uL (3.8-10.6)
[2020-11-20 07:15] LABS: African American GFR (CKD) >90 (>60 ml/min/1.73 sqM); Anion Gap 11 mmol/L; Blood Urea Nitrogen 18 mg/dL (9-20); Calcium 8.6 mg/dL (8.4-10.2); Carbon Dioxide 22 mmol/L (22-30); Chloride 106 mmol/L (98-107); Glucose 85 mg/dL (74-99); Non-African American GFR(CKD) 87 (>60 ml/min/1.73 sqM); Potassium 3.5 mmol/L (3.5-5.1); Sodium 139 mmol/L (137-145)
[2020-11-20] MEDS ORDERED: POTASSIUM CHLORIDE 20 MEQ in WATER FOR INJECTION 1 100ML.BAG IVPB STA (11:47)
[2020-11-20] MEDS: MAGNESIUM SULFATE-D5W PMX 1 GM in DEXTROSE/WATER 1 100ML.BAG IVPB SCH ×2 (12:21→14:22)
--- NOTE | 2020-11-20 12:43 | P.GSHP ---
History of Present Illness H&P Date: 11/20/20 CHIEF COMPLAINT: Abdominal pain HISTORY OF PRESENT ILLNESS: This is a 65-year-old male with known history of recurrent small bowel obstruction. Patient had recent surgery on 11/15/2020 for small bowel decompression, exploratory laparotomy and extensive lysis of adhesions, small bowel enterectomy with primary anastomosis distal ileum. Patient also is status post robotic-assisted laparoscopic lysis of adhesions on 10/30/2020. Patient returns back to the hospital after being discharged on 11/17/2020 with complaints of abdominal pain and vomiting. He reports that his emesis smelled like fecal matter and was black in color. He reports that he has had no gas or bowel movement since surgery. He had 3 episodes of emesis. He tried Jello at home on Friday and started to vomit. He reports that his pain is in the mid abdomen. He had a computed tomography scan of the abdomen and pelvis showed markedly dilated small bowel suggestive of ileus or mechanical bowel obstruction. Transition point seen. Recent surgery with pneumoperitoneum. Dilated small bowel appears increased compared to last exam. Bilateral basilar pulmonary infiltrates and atelectasis and pleural fluid slightly increased compared to old exam. Patient denies any fever or chills or sweats. Denies any difficulty urinating. PAST MEDICAL HISTORY: See list. PAST SURGICAL HISTORY: See list. MEDICATIONS: See list. ALLERGIES: See list. SOCIAL HISTORY: No illicit drug use. REVIEW OF SYSTEMS: CONSTITUTIONAL: Denies fever or chills. HEENT: Denies blurred vision, vision changes, or eye pain. Denies hemoptysis CARDIOVASCULAR: Denies chest pain or pressure. RESPIRATORY: No shortness of breath. GASTROINTESTINAL: See HPI for pertinent findings HEMATOLOGIC: Denies bleeding disorders. GENITOURINARY: Denies any blood in urine or increased urinary frequency. SKIN: Denies pruitis. Denies rash. PHYSICAL EXAM: VITAL SIGNS: Reviewed GENERAL: Well-developed in no acute distress. HEENT: No sclera icterus. Extraocular movements grossly intact. Moist buccal mucosa. Head is atraumatic, normocephalic. No nasal drainage. ABDOMEN: Soft. Mildly distended. Tenderness to palpation of the mid abdomen. Surgical dressing is clean dry and intact. NEUROLOGIC: Alert and oriented. Cranial nerves II through XII grossly intact. LABORATORY DATA: WBC is 6.4 hemoglobin 11.2 platelets 267 sodium 139 potassium 3.5 creatinine 0.93 LFTs normal Lipase 16 Urinalysis rare bacteria, 1+ protein, 2+ ketones, 1+ bilirubin COVID-19 detected IMAGING: computed tomography scan of the abdomen and pelvis showed markedly dilated small bowel suggestive of ileus or mechanical bowel obstruction. Transition point seen. Recent surgery with pneumoperitoneum. Dilated small bowel appears increased compared to last exam. Bilateral basilar pulmonary infiltrates and atelectasis and pleural fluid slightly increased compared to old exam ASSESSMENT: 1. Recurrent mechanical small bowel obstruction 2. Hypokalemia 3. Hypomagnesemia 4. Patient had recent hospitalization with small bowel obstruction due to adhesions and small bowel stricture status post small bowel decompression,exploratory laparotomy and extensive lysis of adhesions, small bowel enterectomy with primary anastomosis distal ileum 5. Noncompliance with treatment 6. Chronic pain syndrome 7. In adequate protein intake 8. 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 Intra-abdominal ascites PLAN: -NG tube for decompression -Nothing by mouth except for ice chips -Replace potassium and magnesium -Repeat BMP and magnesium level in a.m. -Continue pain medication as needed -Continue IV fluids -GI prophylaxis Protonix and DVT prophylaxis subcu heparin Physician Vinyl Hanger note has been reviewed by physician. Signing provider agrees with the documented findings, assessment, and plan of care. Past Medical History Past Medical History: GERD/Reflux, Hearing Disorder / Deafness, Osteoarthritis ( OA), Prostate Disorder Additional Past Medical History / Comment(s): Deaf in right ear, BACK PAIN, DJD, enlarged prostate, bowel obstruction History of Any Multi-Drug Resistant Organisms: MRSA Date of last positivie culture/infection: 2014 MDRO Source:: nose Past Surgical History: Back Surgery, Hernia Repair, Joint Replacement, Orthopedic Surgery Additional Past Surgical History / Comment(s): Back surgery 2-3-21, right knee replacement, right hip replacement, left hip replacement X2, PAIN PROCEDURES, COLLARBONE REPAIRED, right inguinal repair., bowel resection Past Anesthesia/Blood Transfusion Reactions: No Reported Reaction Additional Past Anesthesia/Blood Transfusion Reaction / Comment(s): No hx blood transfusion. Smoking Status: Never smoker - Past Family History Father Family Medical History: Congestive Heart Failure (CHF) Brother(s) Family Medical History: Deep Vein Thrombosis (DVT) Medications and Allergies Home Medications Medication Instructions Recorded Confirmed Type oxyCODONE-APAP 10-325MG [Percocet 1 tab PO QID PRN 05/31/14 11/19/20 History 10-325 mg] carisoprodoL [Soma] 350 mg PO QID PRN 07/04/16 11/19/20 History Multivitamin [Men's Multi-Vitamin] 1 tab PO DAILY 10/14/16 11/19/20 History Cetirizine HCl [Zyrtec] 10 mg PO BID 01/15/18 11/19/20 History Dutasteride [Avodart] 0.5 mg PO DAILY 03/16/20 11/19/20 History Iron Tab 27 mg PO DAILY 03/16/20 11/19/20 History Pantoprazole Sodium [Protonix] 40 mg PO DAILY 03/16/20 11/19/20 History Tadalafil [Cialis] 5 mg PO DAILY PRN 03/29/20 11/19/20 History Tamsulosin [Flomax] 0.8 mg PO DAILY@1600 03/29/20 11/19/20 History Acetaminophen Tab [Tylenol] 1,000 mg PO Q6HR PRN #30 tablet 10/30/20 11/19/20 Rx Simethicone [Gas-X] 125 mg PO AC-TID PRN #20 cap 10/30/20 11/19/20 Rx Ibuprofen [Motrin] 600 mg PO Q8H PRN 11/19/20 11/19/20 History Zolpidem [Ambien] 10 mg PO HS PRN 11/19/20 11/19/20 History Allergies Allergy/AdvReac Type Severity Reaction Status Date / Time No Known Allergies Allergy Verified 11/19/20 14:49 Surgical - Exam Vital Signs Temp Pulse Resp BP Pulse Ox 98.9 F 72 18 170/91 98 11/19/20 11:39 11/19/20 11:39 11/19/20 11:39 11/19/20 11:39 11/19/20 11:39 Results - Labs 11/20/20 06:15 11/20/20 06:15 Abnormal Lab Results - Last 24 Hours (Table) 11/19/20 11/19/20 11/19/20 Range/Units 13:29 13:29 13:29 RBC 4.12 L (4.30-5.90) m/uL Hgb 11.8 L (13.0-17.5) gm/dL Hct 36.1 L (39.0-53.0) % RDW (11.5-15.5) % Potassium 3.3 L (3.5-5.1) mmol/L Glucose 103 H (74-99) mg/dL Total Protein 6.2 L (6.3-8.2) g/dL Albumin 3.0 L (3.5-5.0) g/dL Lipase 16 L (23-300) U/L Urine Protein 1+ H (Negative) Urine Ketones 2+ H (Negative) Urine Bilirubin 1+ H (Negative) Urine Bacteria Rare H (None) /hpf Urine Mucus Moderate H (None) /hpf 11/20/20 Range/Units 06:15 RBC 4.06 L (4.30-5.90) m/uL Hgb 11.2 L (13.0-17.5) gm/dL Hct 35.2 L (39.0-53.0) % RDW 15.9 H (11.5-15.5) % Potassium (3.5-5.1) mmol/L Glucose (74-99) mg/dL Total Protein (6.3-8.2) g/dL Albumin (3.5-5.0) g/dL Lipase (23-300) U/L Urine Protein (Negative) Urine Ketones (Negative) Urine Bilirubin (Negative) Urine Bacteria (None) /hpf Urine Mucus (None) /hpf Diabetes panel 11/19/20 11/20/20 Range/Units 13:29 06:15 Sodium 139 139 (137-145) mmol/L Potassium 3.3 L 3.5 (3.5-5.1) mmol/L Chloride 104 106 (98-107) mmol/L Carbon Dioxide 26 22 (22-30) mmol/L BUN 16 18 (9-20) mg/dL Creatinine 0.83 0.93 (0.66-1.25) mg/dL Glucose 103 H 85 (74-99) mg/dL Calcium 9.0 8.6 (8.4-10.2) mg/dL AST 39 (17-59) U/L ALT 26 (4-49) U/L Alkaline Phosphatase 103 (38-126) U/L Total Protein 6.2 L (6.3-8.2) g/dL Albumin 3.0 L (3.5-5.0) g/dL Calcium panel 11/19/20 11/20/20 Range/Units 13:29 06:15 Calcium 9.0 8.6 (8.4-10.2) mg/dL Albumin 3.0 L (3.5-5.0) g/dL Pituitary panel 11/19/20 11/20/20 Range/Units 13:29 06:15 Sodium 139 139 (137-145) mmol/L Potassium 3.3 L 3.5 (3.5-5.1) mmol/L Chloride 104 106 (98-107) mmol/L Carbon Dioxide 26 22 (22-30) mmol/L BUN 16 18 (9-20) mg/dL Creatinine 0.83 0.93 (0.66-1.25) mg/dL Glucose 103 H 85 (74-99) mg/dL Calcium 9.0 8.6 (8.4-10.2) mg/dL Adrenal panel 11/19/20 11/20/20 Range/Units 13:29 06:15 Sodium 139 139 (137-145) mmol/L Potassium 3.3 L 3.5 (3.5-5.1) mmol/L Chloride 104 106 (98-107) mmol/L Carbon Dioxide 26 22 (22-30) mmol/L BUN 16 18 (9-20) mg/dL Creatinine 0.83 0.93 (0.66-1.25) mg/dL Glucose 103 H 85 (74-99) mg/dL Calcium 9.0 8.6 (8.4-10.2) mg/dL Total Bilirubin 0.6 (0.2-1.3) mg/dL AST 39 (17-59) U/L ALT 26 (4-49) U/L Alkaline Phosphatase 103 (38-126) U/L Total Protein 6.2 L (6.3-8.2) g/dL Albumin 3.0 L (3.5-5.0) g/dL
[2020-11-20] MEDS: 0.9% NACL WITH KCL 20 MEQ/L 1,000 ML IV SCH (12:57)
[2020-11-20] MEDS ORDERED: PANTOPRAZOLE 40 MG/10 ML VIAL IVP SCH (13:00)
[2020-11-20] MEDS ORDERED: KETOROLAC 15 MG/ML 1 ML VIAL IVP SCH (13:15)
[2020-11-20] MEDS: KETOROLAC 15 MG/ML 1 ML VIAL IVP SCH ×2 (15:17→18:00)
[2020-11-20] MEDS: HEPARIN SODIUM,PORCINE/PF 5,000 UNIT/0.5 ML SYRINGE SQ SCH (21:05)
[2020-11-20] MEDS: PANTOPRAZOLE 40 MG/10 ML VIAL IVP SCH (21:06)
[2020-11-20] MEDS: ZOLPIDEM 10 MG TAB PO PRN (22:57)
[2020-11-21] MEDS: MORPHINE SULFATE 4 MG/ML SYRINGE IV PRN ×2 (03:56→19:42)
[2020-11-21] MEDS: PIPERACILLIN-TAZOBACTAM 3.375 GM in SODIUM CHLORIDE 0.9% 100 ML IVPB SCH ×3 (03:56→20:31)
[2020-11-21] MEDS: 0.9% NACL WITH KCL 20 MEQ/L 1,000 ML IV SCH ×5 (03:58→23:06)
[2020-11-21] MEDS: KETOROLAC 15 MG/ML 1 ML VIAL IVP SCH ×5 (04:03→23:07)
[2020-11-21 06:47] LABS: African American GFR (CKD) 89 (>60 ml/min/1.73 sqM); Anion Gap 7 mmol/L; Blood Urea Nitrogen 22 mg/dL (9-20); Calcium 8.2 mg/dL (8.4-10.2); Carbon Dioxide 25 mmol/L (22-30); Chloride 106 mmol/L (98-107); Glucose 92 mg/dL (74-99); Non-African American GFR(CKD) 77 (>60 ml/min/1.73 sqM); Potassium 3.5 mmol/L (3.5-5.1); Sodium 138 mmol/L (137-145)
[2020-11-21] MEDS: HEPARIN SODIUM,PORCINE/PF 5,000 UNIT/0.5 ML SYRINGE SQ SCH ×2 (08:05→20:31)
[2020-11-21] MEDS: PANTOPRAZOLE 40 MG/10 ML VIAL IVP SCH ×2 (08:06→20:31)
[2020-11-21] MEDS: POTASSIUM CHLORIDE 10 MEQ in WATER FOR INJECTION 1 100ML.BAG IVPB SCH ×2 (08:58→13:11)
--- NOTE | 2020-11-21 13:30 | P.PN ---
Subjective Progress Note Date: 11/21/20 CHIEF COMPLAINT: Abdominal pain HISTORY OF PRESENT ILLNESS: Patient is being followed for recurrent mechanical small bowel obstruction. He had NG tube placed. He had a total of 4 L out through the NG tube per nursing staff. Patient reports improvement in his pain after NG tube placed. He reports that he passed gas twice. He reports that his pain is controlled. He is having some nausea. This morning patient's NG tube accidentally was pulled out. Nursing staff is trying to reinsert NG tube. Af ebrile. Potassium 3.5 magnesium 2.0 PHYSICAL EXAM: VITAL SIGNS: Reviewed. GENERAL: Well-developed in no acute distress. HEENT: No sclera icterus. Extraocular movements grossly intact. Moist buccal mucosa. Head is atraumatic, normocephalic. ABDOMEN: Soft. Decreased abdominal distention. Dressing clean dry and intact NEUROLOGIC: Alert and oriented. Cranial nerves II through XII grossly intact. ASSESSMENT: 1. Recurrent mechanical small bowel obstruction 2. Hypokalemia 3. Hypomagnesemia 4. Patient had recent hospitalization with small bowel obstruction due to adhesions and small bowel stricture status post small bowel decompression,exploratory laparotomy and extensive lysis of adhesions, small bowel enterectomy with primary anastomosis distal ileum 5. Noncompliance with treatment 6. Chronic pain syndrome 7. In adequate protein intake 8. 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 Intra-abdominal ascites PLAN: -Continue NG tube for decompression -Nothing by mouth except for ice chips -Replace potassium -Continue pain medication as needed -Continue IV fluids -Encourage patient to increase activity -GI prophylaxis Protonix and DVT prophylaxis subcu heparin Physician Company Accountant note has been reviewed by physician. Signing provider agrees with the documented findings, assessment, and plan of care. Objective - Vital Signs Vital signs: Vital Signs Temp 97.6 F 11/21/20 11:38 Pulse 68 11/21/20 11:38 Resp 18 11/21/20 11:38 BP 163/94 11/21/20 11:38 Pulse Ox 94 L 11/21/20 11:38 Intake & Output 11/20/20 11/21/20 11/21/20 18:59 06:59 18:59 Intake Total 1760 Output Total 2400 Balance -2400 1760 Intake: Intake, IV Titration 1760 Amount 0.9% NaCl with KCl 20 Meq 1560 /l 1,000 ml @ 130 mls/hr IV .Q7H42M [facility] Rx#: [id number] Piperacillin-Tazobactam 3 100 .375 gm In Sodium Chloride 0.9% 100 ml @ 25 mls/hr IVPB Q8H [facility] Rx#: [id number] Potassium Chloride 20 meq 100 In Water For Injection 1 100ml.bag @ 50 mls/hr [facility] Rx#: [id number] Oral 0 Output: Gastric Drainage 2000 Urine 400 Other: Voiding Method Urinal Urinal # Voids 1 2 - Labs CBC & Chem 7: 11/20/20 06:15 11/21/20 05:54 Labs: Abnormal Lab Results - Last 24 Hours (Table) 11/21/20 Range/Units 05:54 BUN 22 H (9-20) mg/dL Calcium 8.2 L (8.4-10.2) mg/dL
[2020-11-21] MEDS: ONDANSETRON 4 MG/2 ML VIAL IVP PRN (19:42)
[2020-11-21 20:29] VITALS: RESP 16
[2020-11-21] MEDS: ZOLPIDEM 10 MG TAB PO PRN (23:07)
[2020-11-22] MEDS: PIPERACILLIN-TAZOBACTAM 3.375 GM in SODIUM CHLORIDE 0.9% 100 ML IVPB SCH ×3 (04:42→20:58)
[2020-11-22] MEDS: 0.9% NACL WITH KCL 20 MEQ/L 1,000 ML IV SCH ×2 (04:43→18:17)
[2020-11-22] MEDS: ONDANSETRON 4 MG/2 ML VIAL IVP PRN (04:43)
[2020-11-22] MEDS: MORPHINE SULFATE 4 MG/ML SYRINGE IV PRN (04:43)
[2020-11-22] MEDS: KETOROLAC 15 MG/ML 1 ML VIAL IVP SCH ×4 (05:53→23:18)
[2020-11-22] MEDS: HEPARIN SODIUM,PORCINE/PF 5,000 UNIT/0.5 ML SYRINGE SQ SCH ×2 (09:22→20:57)
[2020-11-22] MEDS: PANTOPRAZOLE 40 MG/10 ML VIAL IVP SCH ×2 (09:23→20:57)
[2020-11-22 10:05] LABS: African American GFR (CKD) >90 (>60 ml/min/1.73 sqM); Anion Gap 8 mmol/L; Blood Urea Nitrogen 16 mg/dL (9-20); Calcium 8.3 mg/dL (8.4-10.2); Carbon Dioxide 22 mmol/L (22-30); Chloride 108 mmol/L (98-107); Glucose 69 mg/dL (74-99); Non-African American GFR(CKD) 88 (>60 ml/min/1.73 sqM); Potassium 3.8 mmol/L (3.5-5.1); Sodium 138 mmol/L (137-145)
--- NOTE | 2020-11-22 10:32 | XR ---
EXAMINATION TYPE: XR abdomen 2V DATE OF EXAM: 11/22/2020 COMPARISON: 11/15/2020 HISTORY: Pain TECHNIQUE: One view abdominal series FINDINGS: The osseous structures are intact. The bowel gas pattern is nonspecific. Air is seen throughout larg e and small bowel loops in a nonspecific pattern. Postsurgical change involving the hips and vertebra l column. Retained contrast within colon. Persistent dilated bowel loops with air-fluid levels are no nicola. IMPRESSION: 1. Correlate for partial obstruction or severe ileus.
--- NOTE | 2020-11-22 13:20 | P.PN ---
Subjective Progress Note Date: 11/22/20 CHIEF COMPLAINT: Abdominal pain HISTORY OF PRESENT ILLNESS: Patient is being followed for recurrent mechanical small bowel obstruction. Patient's NG tube accidentally came out yesterday afternoon. Nursing staff was unable to get it reinserted. Since then patient reported having a large bowel movement last night. He did have a loose stool this morning. He is having flatus. He does report a decrease in abdominal pain. Patient's blood pressures have been elevated. He did have a blood pressure 190/100 this morning. Chest x-ray shows correlate for partial obstruction or severe ileus. Afebrile. Sodium 138 potassium 3.8 creatinine 0.9 to glucose 69 PHYSICAL EXAM: VITAL SIGNS: Reviewed. GENERAL: Well-developed in no acute distress. HEENT: No sclera icterus. Extraocular movements grossly intact. Moist buccal mucosa. Head is atraumatic, normocephalic. ABDOMEN: Soft. Decreased abdominal distention. Dressing clean dry and intact NEUROLOGIC: Alert and oriented. Cranial nerves II through XII grossly intact. ASSESSMENT: 1. Recurrent mechanical small bowel obstruction 2. Hypokalemia 3. Hypomagnesemia 4. Patient had recent hospitalization with small bowel obstruction due to adh esions and small bowel stricture status post small bowel decompression,exploratory laparotomy and extensive lysis of adhesions, small bowel enterectomy with primary anastomosis distal ileum 5. Noncompliance with treatment 6. Chronic pain syndrome 7. In adequate protein intake 8. 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 Intra-abdominal ascites PLAN: -Advance diet to clears -Consult medical service for medical management and hypertension -Continue pain medication as needed -Continue IV fluids -Encourage patient to increase activity -GI prophylaxis Protonix and DVT prophylaxis subcu heparin Physician On [employer] Director note has been reviewed by physician. Signing provider agrees with the documented findings, assessment, and plan of care. Objective - Vital Signs Vital signs: Vital Signs Temp 97.6 F 11/22/20 12:55 Pulse 58 L 11/22/20 12:55 Resp 16 11/22/20 12:55 BP 214/99 11/22/20 12:55 Pulse Ox 94 L 11/22/20 12:55 Intake & Output 11/21/20 11/22/20 11/22/20 18:59 06:59 18:59 Intake Total 1560 Output Total 300 Balance 1560 -300 Intake: Intake, IV Titration 1560 Amount 0.9% NaCl with KCl 20 Meq 1260 /l 1,000 ml @ 130 mls/hr IV .Q7H42M [facility] Rx#: [id number] Piperacillin-Tazobactam 3 100 .375 gm In Sodium Chloride 0.9% 100 ml @ 25 mls/hr IVPB Q8H [facility] Rx#: [id number] Potassium Chloride 10 meq 200 In Water For Injection 1 100ml.bag @ 100 mls/hr IVPB Q1H [facility] Rx#: [id number] Oral 0 Output: Urine 300 Other: Voiding Method Urinal Toilet Urinal # Voids 4 - Labs CBC & Chem 7: 11/20/20 06:15 11/22/20 09:18 Labs: Abnormal Lab Results - Last 24 Hours (Table) 11/22/20 Range/Units 09:18 Chloride 108 H (98-107) mmol/L Glucose 69 L (74-99) mg/dL Calcium 8.3 L (8.4-10.2) mg/dL
[2020-11-22] MEDS ORDERED: hydrALAZINE HCL 20 MG/ML 1 ML VIAL IVP STA (13:24)
[2020-11-22 14:21] LABS: Glucose,Whole Blood 54 mg/dL (75-99)
[2020-11-22 14:51] LABS: Glucose,Whole Blood 57 mg/dL (75-99)
[2020-11-22 15:18] LABS: Glucose,Whole Blood 72 mg/dL (75-99)
[2020-11-22] MEDS ORDERED: ZOLPIDEM 5 MG TAB PO PRN (23:20)
[2020-11-23] MEDS: PIPERACILLIN-TAZOBACTAM 3.375 GM in SODIUM CHLORIDE 0.9% 100 ML IVPB SCH (03:55)
[2020-11-23] MEDS: KETOROLAC 15 MG/ML 1 ML VIAL IVP SCH (05:38)
[2020-11-23] MEDS: HEPARIN SODIUM,PORCINE/PF 5,000 UNIT/0.5 ML SYRINGE SQ SCH (07:10)
[2020-11-23] MEDS: PANTOPRAZOLE 40 MG/10 ML VIAL IVP SCH (07:10)
[2020-11-23] MEDS: hydrALAZINE HCL 20 MG/ML 1 ML VIAL IVP PRN ×2 (08:35→13:47)
--- NOTE | 2020-11-23 08:35 | XR ---
EXAMINATION TYPE: XR abdomen 1V DATE OF EXAM: 11/23/2020 Comparison: 11/22/2020 Clinical History: 65-year-old male SBO, abdominal pain Findings: Mild patchy medial left basilar opacity. Improving caliber of dilated small bowel loops measuring up to 3.7 cm versus up to 7.0 cm, previously . Several air-fluid levels are now noted within the right side of the colon. Small bowel air-fluid le vels remain throughout. No evidence for free intraperitoneal air. Retained metal debris right lower quadrant with a suspected posttraumatic deformity of the right veto c wing redemonstrated. Bilateral total hip arthroplasties with prominent heterotopic ossification aga in noted. Lower lumbar fusion hardware. Impression: 1. Persistent but improving small bowel obstruction versus ileus given that small bowel loops are now dilated up to 3.7 cm versus nearly 7.0 cm, previously. 2. Mild patchy medial left basilar atelectasis versus infiltrate.
--- NOTE | 2020-11-23 08:43 | P.CONS ---
History of Present Illness - Reason for Consult Consult date: 11/23/20 - Chief Complaint Hypertensive urgency - History of Present Illness This is a 65-year-old black male who has been struggling with bowel obstruction and scar tissue. Multiple surgeries in the last month or so have been instituted. The patient is seen because of significant hypertension. Hydrala zine has been's instituted with Norvas. No overt symptoms. No chest pain visual problems no headaches note diaphoresis stated. No numbness or tingling. No lateralizing findings. Review of Systems Constitutional: Denies chills, Denies fever Eyes: denies blurred vision, denies pain Ears, nose, mouth and throat: Denies headache, Denies sore throat Cardiovascular: Denies chest pain, Denies shortness of breath Respiratory: Denies cough Past Medical History Past Medical History: GERD/Reflux, Hearing Disorder / Deafness, Osteoarthritis (OA), Prostate Disorder Additional Past Medical History / Comment(s): Deaf in right ear, BACK PAIN, DJD, enlarged prostate, bowel obstruction History of Any Multi-Drug Resistant Organisms: MRSA Year Discovered:: 2014 MDRO Source:: nose Past Surgical History: Back Surgery, Hernia Repair, Joint Replacement, Orthopedic Surgery Additional Past Surgical History / Comment(s): Back surgery 2-05-07, right knee replacement, right hip replacement, left hip replacement X2, PAIN PROCEDURES, COLLARBONE REPAIRED, right inguinal repair., bowel resection Past Anesthesia/Blood Transfusion Reactions: No Reported Reaction Additional Past Anesthesia/Blood Transfusion Reaction / Comm: No hx blood transfusion. Smoking Status: Never smoker - Past Family History Father Family Medical History: Congestive Heart Failure (CHF) Brother(s) Family Medical History: Deep Vein Thrombosis (DVT) Medications and Allergies Home Medications Medication Instructions Recorded Confirmed Type oxyCODONE-APAP 10-325MG [Percocet 1 tab PO QID PRN 05/31/14 11/19/20 History 10-325 mg] carisoprodoL [Soma] 350 mg PO QID PRN 07/04/16 11/19/20 History Multivitamin [Men's Multi-Vitamin] 1 tab PO DAILY 10/14/16 11/19/20 History Cetirizine HCl [Zyrtec] 10 mg PO BID 01/15/18 11/19/20 History Dutasteride [Avodart] 0.5 mg PO DAILY 03/16/20 11/19/20 History Iron Tab 27 mg PO DAILY 03/16/20 11/19/20 History Pantoprazole Sodium [Protonix] 40 mg PO DAILY 03/16/20 11/19/20 History Tadalafil [Cialis] 5 mg PO DAILY PRN 03/29/20 11/19/20 History Tamsulosin [Flomax] 0.8 mg PO DAILY@1600 03/29/20 11/19/20 History Acetaminophen Tab [Tylenol] 1,000 mg PO Q6HR PRN #30 tablet 10/30/20 11/19/20 Rx Simethicone [Gas-X] 125 mg PO AC-TID PRN #20 cap 10/30/20 11/19/20 Rx Ibuprofen [Motrin] 600 mg PO Q8H PRN 11/19/20 11/19/20 History Zolpidem [Ambien] 10 mg PO HS PRN 11/19/20 11/19/20 History Allergies Allergy/AdvReac Type Severity Reaction Status Date / Time No Known Allergies Allergy Verified 11/19/20 14:49 Physical Exam Vitals: Vital Signs Temp Pulse Pulse Resp BP BP Pulse Ox 11/23/20 08:34 89 177/92 11/23/20 05:00 98.1 F 69 16 166/93 100 11/22/20 20:39 98.9 F 58 L 16 185/97 97 11/22/20 15:20 162/94 11/22/20 12:55 97.6 F 58 L 16 208/99 214/99 94 L Intake and Output 11/22/20 11/23/20 11/23/20 22:59 06:59 14:59 Intake Total 1420 440 Output Total 840 Balance 1420 -400 Intake: Intake, IV Titration 220 440 Amount 0.9% NaCl with KCl 20 Meq 120 240 /l 1,000 ml @ 20 mls/hr IV .Q24H [facility] Rx#: [id number] Piperacillin-Tazobactam 3 100 200 .375 gm In Sodium Chloride 0.9% 100 ml @ 25 mls/hr IVPB Q8H [facility] Rx#: [id number] Oral 1200 Output: Urine 840 Other: Voiding Method Urinal # Voids 4 - Constitutional General appearance: no acute distress - EENT Eyes: EOMI - Neck Neck: no lymphadenopathy - Respiratory Respiratory: bilateral: CTA - Cardiovascular Rhythm: regular Heart sounds: normal: S1, S2 Abnormal Heart Sounds: no S3 Gallop - Gastrointestinal General gastrointestinal: soft, no tenderness - Integumentary Integumentary: no cellulitis Results CBC & Chem 7: 11/20/20 06:15 11/22/20 09:18 Labs: Abnormal Lab Results - Last 24 Hours (Table) 11/22/20 11/22/20 11/22/20 Range/Units 09:18 14:19 14:50 Chloride 108 H (98-107) mmol/L Glucose 69 L (74-99) mg/dL POC Glucose (mg/dL) 54 L 57 L (75-99) mg/dL Calcium 8.3 L (8.4-10.2) mg/dL 11/22/20 Range/Units 15:16 Chloride (98-107) mmol/L Glucose (74-99) mg/dL POC Glucose (mg/dL) 72 L (75-99) mg/dL Calcium (8.4-10.2) mg/dL Assessment and Plan (1) Hypertensive urgency Current Visit: Yes Status: Acute Code(s): I16.0 - HYPERTENSIVE URGENCY SNOMED Code(s): 660978825 (2) Bowel obstruction Current Visit: Yes Status: Acute Code(s): K56.609 - UNSP INTESTNL OBST, UNSP TO PARTIAL VERSUS COMPLETE OBST SNOMED Code(s): 47765770 (3) BPH (benign prostatic hyperplasia) Current Visit: No Status: Acute Code(s): N40.0 - BENIGN PROSTATIC HYPERPLASIA WITHOUT LOWER URINRY TRACT SYMP SNOMED Code(s): 037232556 (4) Chronic pain syndrome Current Visit: No Status: Acute Code(s): G89.4 - CHRONIC PAIN SYNDROME SNOMED Code(s): 435835186 (5) DDD (degenerative disc disease), lumbar Current Visit: No Status: Acute Code(s): M51.36 - OTHER INTERVERTEBRAL DISC DEGENERATION, LUMBAR REGION SNOMED Code(s): 90506680 Plan: Go ahead and start Norvasc 5 mg per Hydralazine will be given to initially lower blood pressure today. Rate reconcile home medications as necessary. Anticipate discharge once cleared by surgery. See orders otherwise.
[2020-11-23] MEDS ORDERED: amLODIPine 5 MG TAB PO SCH (09:00)
[2020-11-23 11:12] VITALS: TEMP 98.7
--- NOTE | 2020-11-23 13:30 | P.DS ---
Providers Date of admission: 11/19/20 15:30 Expected date of discharge: 11/23/20 Attending physician: Lizet Steele Consults: 11/22/20 12:38 Consult Physician Routine Consulting Provider: Shaun Wang Consult Reason/Comments: medical management, HTN Do you want consulting provider notified?: Yes Primary care physician: Shaun Wang Hospital Course: Discharge diagnosis 1. Small bowel ileus 2. Hypokalemia 3. Hypomagnesemia 4. Patient had recent hospitalization with small bowel obstruction due to adhesions and small bowel stricture status post small bowel decompression, exploratory laparotomy and extensive lysis of adhesions, small bowel enterectomy with primary anastomosis distal ileum 5. Noncompliance with treatment 6. Chronic pain syndrome 7. In adequate protein intake 8. 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 Intra-abdominal ascites Hospital course This is a 65-year-old male with known history of recurrent small bowel obstruction. Patient had recent surgery on 11/15/2020 for small bowel decompression, exploratory laparotomy and extensive lysis of adhesions, small bowel enterectomy with primary anastomosis distal ileum. Patient also is status post robotic-assisted laparoscopic lysis of adhesions on 10/30/2020. Patient returns back to the hospital after being discharged on 11/17/2020 with complaints of abdominal pain and vomiting. He reports that he has had no gas or bowel movement since surgery. He had 3 episodes of emesis. He tried Jello at home on Friday and started to vomit. He reports that his pain is in the mid abdomen. He had a computed tomography scan of the abdomen and pelvis showed markedly dilated small bowel suggestive of ileus or mechanical bowel obstruction. Transition point seen. Recent surgery with pneumoperitoneum. Dilated small bowel appears increased compared to last exam. Patient had NG tube inserted for decompression. His magnesium and potassium were replaced. Patient seen by medicine service for his blood pressure. Patient started to have all activity. He is having flatus and bowel movements. Abdominal x-rays had shown improvement in bowel dilation. He is tolerating diet. His abdominal pain has improved. He is afebrile. He is up and ambulating. He is stable for discharge. Physician Battery Engineer note has been reviewed by physician. Signing provider agrees with the documented findings, assessment, and plan of care. Patient Condition at Discharge: Stable Plan - Discharge Summary Discharge Rx Participant: No New Discharge Prescriptions: Continue oxyCODONE-APAP 10-325MG [Percocet 10-325 mg] 1 tab PO QID PRN PRN Reason: Pain carisoprodoL [Soma] 350 mg PO QID PRN PRN Reason: Pain Multivitamin [Men's Multi-Vitamin] 1 tab PO DAILY Cetirizine HCl [Zyrtec] 10 mg PO BID Dutasteride [Avodart] 0.5 mg PO DAILY Pantoprazole Sodium [Protonix] 40 mg PO DAILY Iron Tab 27 mg PO DAILY Tamsulosin [Flomax] 0.8 mg PO DAILY@1600 Tadalafil [Cialis] 5 mg PO DAILY PRN PRN Reason: E.D. Acetaminophen Tab [Tylenol] 1,000 mg PO Q6HR PRN #30 tablet PRN Reason: Pain Zolpidem [Ambien] 10 mg PO HS PRN PRN Reason: Insomnia Ibuprofen [Motrin] 600 mg PO Q8H PRN PRN Reason: Pain Simethicone [Gas-X] 125 mg PO AC-TID PRN #20 cap PRN Reason: Pain Discharge Medication List oxyCODONE-APAP 10-325MG [Percocet 10-325 mg] 1 tab PO QID PRN 05/31/14 [History] carisoprodoL [Soma] 350 mg PO QID PRN 07/04/16 [History] Multivitamin [Men's Multi-Vitamin] 1 tab PO DAILY 10/14/16 [History] Cetirizine HCl [Zyrtec] 10 mg PO BID 01/15/18 [History] Dutasteride [Avodart] 0.5 mg PO DAILY 03/16/20 [History] Iron Tab 27 mg PO DAILY 03/16/20 [History] Pantoprazole Sodium [Protonix] 40 mg PO DAILY 03/16/20 [History] Tadalafil [Cialis] 5 mg PO DAILY PRN 03/29/20 [History] Tamsulosin [Flomax] 0.8 mg PO DAILY@1600 03/29/20 [History] Acetaminophen Tab [Tylenol] 1,000 mg PO Q6HR PRN #30 tablet 10/30/20 [Rx] Simethicone [Gas-X] 125 mg PO AC-TID PRN #20 cap 10/30/20 [Rx] Ibuprofen [Motrin] 600 mg PO Q8H PRN 10/03/21 [History] Zolpidem [Ambien] 10 mg PO HS PRN 11/19/20 [History] Follow up Appointment(s)/Referral(s): Shaun Wang MD [Primary Care Provider] - 1-2 days Lizet Steele MD [Family Provider] - 11/28/20 Activity/Diet/Wound Care/Special Instructions: medicine service to take care of BP med RX pt would like flu vaccine at mi Wear abdominal binder at all times for comfort. No lifting over 4 pounds in 4 weeks until Dec 13 You May shower No bath tub soaks for two weeks until Nov 29 Discharge Disposition: HOME SELF-CARE
[2020-11-23 13:49] VITALS: BP 175/102; PULSE 66
[2020-11-23] MEDS ORDERED: hydrALAZINE HCL 10 MG TAB PO STA (14:12)
[2020-11-23] MEDS ORDERED: amLODIPine 5 MG TAB PO STA (14:13)
== END 2020-11-23 14:55 | disposition home or self-care (01) | DRG 389 ==
LOC: EC 10:57 → 5NMEDONC 15:30
PROVIDERS: ADMIT Surgery Plastic and Reconstructive Surgery; ATTEND Surgery Plastic and Reconstructive Surgery
DX: K56.7 Ileus, unspecified (principal); N13.8 Other obstructive and reflux uropathy; R18.8 Other ascites; K21.9 Gastro-esophageal reflux disease without esophagitis; H91.90 Unspecified hearing loss, unspecified ear; M51.36 Other intervertebral disc degeneration, lumbar region; N40.1 Benign prostatic hyperplasia with lower urinary tract symptoms; E87.6 Hypokalemia; Z20.822 Contact with and (suspected) exposure to COVID-19; Z96.651 Presence of right artificial knee joint; H91.91 Unspecified hearing loss, right ear; I10 Essential (primary) hypertension; I16.0 Hypertensive urgency; E83.42 Hypomagnesemia; G89.4 Chronic pain syndrome; Z96.643 Presence of artificial hip joint, bilateral; Z86.14 Personal history of Methicillin resistant Staphylococcus aureus infection; Z79.899 Other long term (current) drug therapy; Z90.49 Acquired absence of other specified parts of digestive tract; Z82.49 Family history of ischemic heart disease and other diseases of the circulatory system; Z91.19 Patient's noncompliance with other medical treatment and regimen; Z98.890 Other specified postprocedural states
CPT/HCPCS: 36415; 74018; 74019; 74177; 80048; 80053; 81001; 83605; 83690; 83735; 85025; 87635; 96374; 96375; 99285

== ENCOUNTER 2020-12-18 09:52 | Emergency (ER) | payer MEDICARE, OTHER ==
[2020-12-18 10:08] VITALS: BP 131/85; PULSE 89; RESP 18; TEMP 97.9
[2020-12-18] MEDS ORDERED: KETOROLAC 15 MG/ML 1 ML VIAL IM STA (10:36)
--- NOTE | 2020-12-18 10:47 | ED ---
Back Pain HPI - General Chief Complaint: Back Pain/Injury Stated Complaint: low back pain Time Seen by Provider: 12/18/20 10:19 Source: patient, RN notes reviewed, old records reviewed Mode of arrival: ambulatory Limitations: physical limitation - History of Present Illness Initial Comments: Patient is a 65-year-old male presenting to emergency Department with complaints of low back pain over the past 3 days. He does have history of lumbar surgery back in March of a Dr. Phillip, he's been doing great since until Friday. He denies any specific events that started his pain, no falls or trauma. He states he does have to crawl over his to get out of bed, he thinks he might started to spasm. Denies any fevers or chills, no saddle paresthesia, no numbness and tingling into his legs. Denies any bowel or bladder incontinence. He states he has been using heat packs on his back which does help for about an hour and then the pain returns. He takes Percocets for chronic pain, but states that is not helping. He has no further complaints. His vitals are stable upon arrival. - Related Data Home Medications Medication Instructions Recorded Confirmed oxyCODONE-APAP 10-325MG [Percocet 1 tab PO QID PRN 05/31/14 11/19/20 10-325 mg] carisoprodoL [Soma] 350 mg PO QID PRN 07/04/16 11/19/20 Multivitamin [Men's Multi-Vitamin] 1 tab PO DAILY 10/14/16 11/19/20 Cetirizine HCl [Zyrtec] 10 mg PO BID 01/15/18 11/19/20 Dutasteride [Avodart] 0.5 mg PO DAILY 03/16/20 11/19/20 Iron Tab 27 mg PO DAILY 03/16/20 11/19/20 Pantoprazole Sodium [Protonix] 40 mg PO DAILY 03/16/20 11/19/20 Tadalafil [Cialis] 5 mg PO DAILY PRN 03/29/20 11/19/20 Tamsulosin [Flomax] 0.8 mg PO DAILY@1600 03/29/20 11/19/20 Ibuprofen [Motrin] 600 mg PO Q8H PRN 11/19/20 11/19/20 Zolpidem [Ambien] 10 mg PO HS PRN 11/19/20 11/19/20 Previous Rx's Medication Instructions Recorded Acetaminophen Tab [Tylenol] 1,000 mg PO Q6HR PRN #30 tablet 10/30/20 Simethicone [Gas-X] 125 mg PO AC-TID PRN #20 cap 10/30/20 predniSONE [Deltasone] 20 mg PO BID 5 Days #10 tab 12/18/20 Allergies Allergy/AdvReac Type Severity Reaction Status Date / Time No Known Allergies Allergy Verified 12/18/20 10:07 Review of Systems ROS Statement: Those systems with pertinent positive or pertinent negative responses have been documented in the HPI. ROS Other: All systems not noted in ROS Statement are negative. Past Medical History Past Medical History: GERD/Reflux, Hearing Disorder / Deafness, Osteoarthritis (OA), Prostate Disorder Additional Past Medical History / Comment(s): Deaf in right ear, BACK PAIN, DJD, enlarged prostate, bowel obstruction, colitis History of Any Multi-Drug Resistant Organisms: MRSA Date of last positivie culture/infection: 2014 MDRO Source:: nose Past Surgical History: Back Surgery, Hernia Repair, Joint Replacement, Orthopedic Surgery Additional Past Surgical History / Comment(s): Back surgery 03-22-20, right knee replacement, right hip replacement, left hip replacement X2, PAIN PROCEDURES, COLLARBONE REPAIRED, right inguinal repair., bowel resection Past Anesthesia/Blood Transfusion Reactions: No Reported Reaction Additional Past Anesthesia/Blood Transfusion Reaction / Comment(s): No hx blood transfusion. Past Psychological History: No Psychological Hx Reported Smoking Status: Never smoker Past Alcohol Use History: Occasional Past Drug Use History: None Reported - Past Family History Father Family Medical History: Congestive Heart Failure (CHF) Brother(s) Family Medical History: Deep Vein Thrombosis (DVT) General Exam - General Exam Comments Initial Comments: GENERAL: Patient is well-developed and well-nourished. Patient is nontoxic and in no acute distress. HEAD: Atraumatic, normocephalic. EYES: Pupils equal round and reactive to light, extraocular movements intact, sclera anicteric, conjunctiva are normal. Eyelids were unremarkable. ENT: Moist mucous membranes. NECK: Normal range of motion, supple without lymphadenopathy or JVD. LUNGS: Unlabored respirations. Breath sounds clear to auscultation bilaterally and equal. No wheezes rales or rhonchi. HEART: Regular rate and rhythm without murmurs, rubs or gallops. ABDOMEN: Soft, nontender, normoactive bowel sounds. No guarding, no rebound. No masses appreciated. MUSCULOSKELETAL: Normal extremities with adequate strength and normal range of motion, no pitting or edema. No clubbing or cyanosis. No pain with palpation of the lumbar spine or lumbar paraspinals. NEUROLOGICAL: Patient is alert and oriented x 3. Motor and sensory are also intact. Cranial nerves II through XII grossly intact. Symmetrical smile. Normal speech, normal gait. PSYCH: Normal mood, normal affect. SKIN: Warm, Dry, normal turgor, no rashes or lesions noted. Limitations: physical limitation Course Vital Signs 12/18/20 10:04 Temperature 97.9 F Pulse Rate 89 Respiratory 18 Rate Blood Pressure 131/85 O2 Sat by Pulse 100 Oximetry Medical Decision Making - Medical Decision Making Patient is a 65-year-old male here with an acute on chronic low back pain. He had lumbar surgery and in March with Dr. Phillip. He is presenting today with lumbar paraspinal discomfort. It does improve with heat. He takes Percocets for chronic pain. He has no acute findings on exam, no acute neuro deficits. Patient will be given Toradol injection today and short course of steroids. He can follow up Dr. Phillip if his symptoms persist. He is agreeable to this plan of care and he is stable for discharge. Disposition Clinical Impression: Acute exacerbation of chronic low back pain Disposition: HOME SELF-CARE Condition: Stable Instructions (If sedation given, give patient instructions): Acute Low Back Pain (ED) Additional Instructions: Please return to the Emergency Department if symptoms worsen or any other concerns. Trial of steroids for pain relief, continue with heat packs to the area and gentle stretching. Trial of ice pack as well. If symptoms persist, follow-up with Dr. Phillip. Prescriptions: predniSONE [Deltasone] 20 mg PO BID 5 Days #10 tab Is patient prescribed a controlled substance at d/c from ED?: No Referrals: Shaun Wang MD [Primary Care Provider] - 1-2 days Charles Phillip DO [Doctor of Osteopathic Medicine] - 1-2 days Time of Disposition: 10:46
== END 2020-12-18 10:56 | disposition home or self-care (01) ==
LOC: EC 09:52
DX: G89.29 Other chronic pain (principal); M54.50 Low back pain, unspecified; K21.9 Gastro-esophageal reflux disease without esophagitis; M19.90 Unspecified osteoarthritis, unspecified site; Z79.1 Long term (current) use of non-steroidal anti-inflammatories (NSAID); Z79.52 Long term (current) use of systemic steroids; Z79.899 Other long term (current) drug therapy; Z82.49 Family history of ischemic heart disease and other diseases of the circulatory system
CPT/HCPCS: 99283 ×2; 96372 ×2; J1885

== ENCOUNTER 2021-01-03 00:02 | Emergency (ER) | payer MEDICARE, OTHER ==
[2021-01-03] MEDS ORDERED: SODIUM CHLORIDE 0.9% 500 ML 500 ML IV STA (00:30)
[2021-01-03] MEDS ORDERED: ONDANSETRON 4 MG/2 ML VIAL IVP STA (00:30)
[2021-01-03] MEDS ORDERED: HYDROmorphone 1 MG/ML 1 ML SYRINGE IVP STA ×2 (00:30→02:29)
[2021-01-03 01:24] LABS: Anisocytosis Slight; Basophils % (A) 0 %; Eosinophils # (A) 0.2 k/uL (0-0.7); Eosinophils % (A) 2 %; HCT 39.9 % (39.0-53.0); HGB 12.7 gm/dL (13.0-17.5); Lymphocytes # (A) 2.9 k/uL (1.0-4.8); Lymphocytes % (A) 33 %; MCH 28.4 pg (25.0-35.0); MCHC 31.9 g/dL (31.0-37.0); Mean Platelet Volume 8.8; Monocytes # (A) 0.4 k/uL (0-1.0); Monocytes % (A) 5 %; Neutrophils # (A) 4.9 k/uL (1.3-7.7); Neutrophils % (A) 57 %; Platelet Count 146 k/uL (150-450); RBC 4.48 m/uL (4.30-5.90); RDW 16.4 % (11.5-15.5); WBC 8.6 k/uL (3.8-10.6)
[2021-01-03 01:44] LABS: Albumin 3.6 g/dL (3.5-5.0); Calcium 8.9 mg/dL (8.4-10.2); Potassium 4.1 mmol/L (3.5-5.1); Total Bilirubin 0.4 mg/dL (0.2-1.3); Total Protein 6.9 g/dL (6.3-8.2)
--- NOTE | 2021-01-03 02:29 | CT ---
EXAMINATION TYPE: CT abdomen pelvis w con DATE OF EXAM: 01/03/2021 COMPARISON: 11/19/2020 HISTORY: Abdominal pain CT DLP: 1656.2 mGycm Automated exposure control for dose reduction was used. CONTRAST: Performed with IV Contrast, patient injected with 100 mL of Isovue 300. Images obtained from the diaphragm to the floor the pelvis with IV contrast. There is subsegmental atelectasis at the lung bases. Heart size is normal. There is no pericardial ef fusion. There is no adrenal mass. Kidneys show satisfactory contrast opacification. There is no hydro nephrosis. There is 2 cm cortical cyst lateral left kidney. There is no retroperitoneal adenopathy. U reters are not dilated. There is metal artifact from bilateral hip prosthesis. Urinary bladder not we ll evaluated. There is no evidence of a pelvic mass. There are multiple dilated fluid-filled small bowel loops throughout the abdomen. There are surgical clips in the right side of the abdomen with apparent right hemicolectomy. Small bowel is dilated up t o 4.4 cm. There is posterior fusion surgery in the lumbar spine at L3-L4 and L5. Vertebra have normal alignment . There is no compression fracture. Bony pelvis appears intact. There is no evidence of free air. There is no ascites. IMPRESSION: Dilated small bowel suggestive of distal mechanical small bowel obstruction. Dilation similar to old exam. There is clearing of the pleural fluid and atelectasis at the lung bases to a large extent comp ared to old exam.
[2021-01-03 02:47] LABS: Appearance,Urine Clear (Clear); Bilirubin,Urine Negative (Negative); Blood,Urine Negative (Negative); Color,Urine Yellow; Glucose,Urine (UA) Negative (Negative); Ketones,Urine Negative (Negative); Leukocyte Esterase,Urine Negative (Negative); Nitrite,Urine Negative (Negative); Protein,Urine Negative (Negative); Specific Gravity,Urine 1.032 (1.001-1.035); Urobilinogen,Urine <2.0 mg/dL (<2.0)
--- NOTE | 2021-01-03 02:51 | ED ---
Abdominal Pain HPI - General Chief Complaint: Abdominal Pain Stated Complaint: Abdominal Pain Time Seen by Provider: 01/03/21 00:24 Source: patient Mode of arrival: ambulatory Limitations: no limitations - History of Present Illness Initial Comments: 65 year-old male patient presents for evaluation of upper abdominal pain that started about 2 hours prior to arrival. Patient states that he ate dinner approximately three hours before that. Denies nausea or vomiting. Denies any constipation or diarrhea. Had normal bowel movement this morning. He denies fever or chills. Did have colon resection in November with Dr. Steele. Patient denies any recent rash, cough, shortness of breath, chest pain, back pain, numbness, tingling, dizziness, weakness, hematuria, dysuria, urinary urgency, urinary frequency, headache, visual changes, or any other complaints. - Related Data Home Medications Medication Instructions Recorded Confirmed oxyCODONE-APAP 10-325MG [Percocet 1 tab PO QID PRN 05/31/14 11/19/20 10-325 mg] carisoprodoL [Soma] 350 mg PO QID PRN 07/04/16 11/19/20 Multivitamin [Men's Multi-Vitamin] 1 tab PO DAILY 10/14/16 11/19/20 Cetirizine HCl [Zyrtec] 10 mg PO BID 01/15/18 11/19/20 Dutasteride [Avodart] 0.5 mg PO DAILY 03/16/20 11/19/20 Iron Tab 27 mg PO DAILY 03/16/20 11/19/20 Pantoprazole Sodium [Protonix] 40 mg PO DAILY 03/16/20 11/19/20 Tadalafil [Cialis] 5 mg PO DAILY PRN 03/29/20 11/19/20 Tamsulosin [Flomax] 0.8 mg PO DAILY@1600 03/29/20 11/19/20 Ibuprofen [Motrin] 600 mg PO Q8H PRN 11/19/20 11/19/20 Zolpidem [Ambien] 10 mg PO HS PRN 11/19/20 11/19/20 Previous Rx's Medication Instructions Recorded Acetaminophen Tab [Tylenol] 1,000 mg PO Q6HR PRN #30 tablet 10/30/20 Simethicone [Gas-X] 125 mg PO AC-TID PRN #20 cap 10/30/20 predniSONE [Deltasone] 20 mg PO BID 5 Days #10 tab 12/18/20 Allergies Allergy/AdvReac Type Severity Reaction Status Date / Time No Known Allergies Allergy Verified 01/03/21 00:12 Review of Systems ROS Statement: Those systems with pertinent positive or pertinent negative responses have been documented in the HPI. ROS Other: All systems not noted in ROS Statement are negative. Past Medical History Past Medical History: GERD/Reflux, Hearing Disorder / Deafness, Osteoarthritis (OA), Prostate Disorder Additional Past Medical History / Comment(s): Deaf in right ear, BACK PAIN, DJD, enlarged prostate, bowel obstruction, colitis History of Any Multi-Drug Resistant Organisms: MRSA Date of last positivie culture/infection: 2014 MDRO Source:: nose Past Surgical History: Back Surgery, Bowel Resection, Hernia Repair, Joint Replacement, Orthopedic Surgery Additional Past Surgical History / Comment(s): Back surgery 03-22-20, right knee replacement, right hip replacement, left hip replacement X2, PAIN PROCEDURES, COLLARBONE REPAIRED, right inguinal repair., bowel resection Past Anesthesia/Blood Transfusion Reactions: No Reported Reaction Additional Past Anesthesia/Blood Transfusion Reaction / Comment(s): No hx blood transfusion. Past Psychological History: No Psychological Hx Reported Smoking Status: Never smoker Past Alcohol Use History: Occasional Past Drug Use History: None Reported - Past Family History Father Family Medical History: Congestive Heart Failure (CHF) Brother(s) Family Medical History: Deep Vein Thrombosis (DVT) General Exam Limitations: no limitations General appearance: alert, in no apparent distress, other (This is a well- developed, well-nourished adult male patient in no acute distress. Vital signs upon presentation temperature 97.9F, pulse 69, respirations 20, blood pressure 171/87, pulse ox 99% on room air.) ENT exam: Present: normal exam, normal oropharynx, mucous membranes moist Respiratory exam: Present: normal lung sounds bilaterally. Absent: respiratory distress, wheezes, rales, rhonchi, stridor Cardiovascular Exam: Present: regular rate, normal rhythm, normal heart sounds. Absent: systolic murmur, diastolic murmur, rubs, gallop, clicks GI/Abdominal exam: Present: soft, tenderness (Upper abdominal), normal bowel sounds. Absent: distended, guarding, rebound, rigid Neurological exam: Present: alert, oriented X3, CN II-XII intact Psychiatric exam: Present: normal affect, normal mood Skin exam: Present: warm, dry, intact, normal color. Absent: rash Course Vital Signs 01/03/21 00:09 Temperature 97.9 F Pulse Rate 69 Respiratory 20 Rate Blood Pressure 171/87 O2 Sat by Pulse 99 Oximetry Medical Decision Making - Medical Decision Making 65-year-old male patient presented to the emergency department today for evaluation of upper abdominal pain. Denies nausea or vomiting. He is afebrile normal vital signs. Labs reviewed and are unremarkable. CT abdomen and pelvis was obtained and did show evidence for possible mechanical small bowel obs truction. Dilated small bowel to 4.4 cm of this is consistent with findings on previous computed tomography scan. Upon reevaluation patient is resting comfortably. States he is feeling better. I did discuss CT findings that he could have a bowel obstruction. Patient states that he is unable to be admitted at this time and needs to go home to take care of some "things". I did discuss following a clear liquid diet. He is instructed to return immediately if symptoms change or worsen. He is instructed to return if worse or follow up anson with Dr. Steele. He is agreeable to this plan. Case discussed with my attending Dr. Meeks. - Lab Data Result diagrams: 01/03/21 00:43 01/03/21 00:43 Lab Results 01/03/21 01/03/21 01/03/21 Range/Units 00:43 00:43 00:43 WBC 8.6 (3.8-10.6) k/uL RBC 4.48 (4.30-5.90) m/uL Hgb 12.7 L (13.0-17.5) gm/dL Hct 39.9 (39.0-53.0) % MCV 89.0 (80.0-100.0) fL MCH 28.4 (25.0-35.0) pg MCHC 31.9 (31.0-37.0) g/dL RDW 16.4 H (11.5-15.5) % Plt Count 146 L (150-450) k/uL MPV 8.8 Neutrophils % 57 % Lymphocytes % 33 % Monocytes % 5 % Eosinophils % 2 % Basophils % 0 % Neutrophils # 4.9 (1.3-7.7) k/uL Lymphocytes # 2.9 (1.0-4.8) k/uL Monocytes # 0.4 (0-1.0) k/uL Eosinophils # 0.2 (0-0.7) k/uL Basophils # 0.0 (0-0.2) k/uL Anisocytosis Slight Sodium 138 (137-145) mmol/L Potassium 4.1 (3.5-5.1) mmol/L Chloride 109 H (98-107) mmol/L Carbon Dioxide 23 (22-30) mmol/L Anion Gap 6 mmol/L BUN 22 H (9-20) mg/dL Creatinine 1.05 (0.66-1.25) mg/dL Est GFR (CKD-EPI)AfAm 87 (>60 ml/min/1.73 sqM) Est GFR (CKD-EPI)NonAf 75 (>60 ml/min/1.73 sqM) Glucose 105 H (74-99) mg/dL Plasma Lactic Acid Everette (0.7-2.0) mmol/L Calcium 8.9 (8.4-10.2) mg/dL Total Bilirubin 0.4 (0.2-1.3) mg/dL AST 31 (17-59) U/L ALT 30 (4-49) U/L Alkaline Phosphatase 130 H (38-126) U/L Total Protein 6.9 (6.3-8.2) g/dL Albumin 3.6 (3.5-5.0) g/dL Lipase 25 (23-300) U/L Urine Color Yellow Urine Appearance Clear (Clear) Urine pH 5.0 (5.0-8.0) Ur Specific Magnet 1.032 (1.001-1.035) Urine Protein Negative (Negative) Urine Glucose (UA) Negative (Negative) Urine Ketones Negative (Negative) Urine Blood Negative (Negative) Urine Nitrite Negative (Negative) Urine Bilirubin Negative (Negative) Urine Urobilinogen <2.0 (<2.0) mg/dL Ur Leukocyte Esterase Negative (Negative) 01/03/21 Range/Units 00:43 WBC (3.8-10.6) k/uL RBC (4.30-5.90) m/uL Hgb (13.0-17.5) gm/dL Hct (39.0-53.0) % MCV (80.0-100.0) fL MCH (25.0-35.0) pg MCHC (31.0-37.0) g/dL RDW (11.5-15.5) % Plt Count (150-450) k/uL MPV Neutrophils % % Lymphocytes % % Monocytes % % Eosinophils % % Basophils % % Neutrophils # (1.3-7.7) k/uL Lymphocytes # (1.0-4.8) k/uL Monocytes # (0-1.0) k/uL Eosinophils # (0-0.7) k/uL Basophils # (0-0.2) k/uL Anisocytosis Sodium (137-145) mmol/L Potassium (3.5-5.1) mmol/L Chloride (98-107) mmol/L Carbon Dioxide (22-30) mmol/L Anion Gap mmol/L BUN (9-20) mg/dL Creatinine (0.66-1.25) mg/dL Est GFR (CKD-EPI)AfAm (>60 ml/min/1.73 sqM) Est GFR (CKD-EPI)NonAf (>60 ml/min/1.73 sqM) Glucose (74-99) mg/dL Plasma Lactic Acid Everette 0.9 (0.7-2.0) mmol/L Calcium (8.4-10.2) mg/dL Total Bilirubin (0.2-1.3) mg/dL AST (17-59) U/L ALT (4-49) U/L Alkaline Phosphatase (38-126) U/L Total Protein (6.3-8.2) g/dL Albumin (3.5-5.0) g/dL Lipase (23-300) U/L Urine Color Urine Appearance (Clear) Urine pH (5.0-8.0) Ur Specific Magnet (1.001-1.035) Urine Protein (Negative) Urine Glucose (UA) (Negative) Urine Ketones (Negative) Urine Blood (Negative) Urine Nitrite (Negative) Urine Bilirubin (Negative) Urine Urobilinogen (<2.0) mg/dL Ur Leukocyte Esterase (Negative) - Radiology Data Radiology results: report reviewed, image reviewed CT abdomen and pelvis was obtained with contrast. Report reviewed in its entirety. Impression by Dr. Thurston shows dilated small bowel suggestive of distal mechanical small bowel obstruction. Dilation similar to old exam. There is clearing of the pleural fluid and atelectasis at the lung bases to a large extent compared to old exam. Disposition Clinical Impression: Abdominal pain Disposition: HOME SELF-CARE Condition: Good Instructions (If sedation given, give patient instructions): Abdominal Pain (ED), Bowel Obstruction (ED) Additional Instructions: Follow clear liquid diet for the next 24 hours. Follow-up with Dr. Cantor for further evaluation as soon as possible. Return to the emergency department immediately for any new, worsening, or concerning symptoms. Is patient prescribed a controlled substance at d/c from ED?: No Referrals: Shaun Wang MD [Primary Care Provider] - 1-2 days Time of Disposition: 03:30
[2021-01-03 04:24] VITALS: BP 128/87; PULSE 65; RESP 18; TEMP 98.1
== END 2021-01-03 03:45 | disposition home or self-care (01) ==
LOC: EC 00:02
DX: R10.10 Upper abdominal pain, unspecified (principal); K21.9 Gastro-esophageal reflux disease without esophagitis; M19.90 Unspecified osteoarthritis, unspecified site; N40.0 Benign prostatic hyperplasia without lower urinary tract symptoms; Z79.899 Other long term (current) drug therapy
CPT/HCPCS: 36415; 80053; 83605; 83690; 85025; 81003; 74177; 96374; 96375 ×2; 96361 ×2; 99284; J2405; J1170; Q9967; 96376

== ENCOUNTER 2021-01-04 12:40 | Emergency (ER) | payer MEDICARE, OTHER ==
[2021-01-04 13:30] VITALS: TEMP 97.7
[2021-01-04] MEDS ORDERED: HYDROmorphone 0.5 MG/0.5 ML SYRINGE IVP STA (16:44)
[2021-01-04] MEDS ORDERED: SODIUM CHLORIDE 0.9% 500 ML 500 ML IV STA (16:44)
--- NOTE | 2021-01-04 16:46 | ED ---
General Adult HPI - General Chief complaint: Abdominal Pain Stated complaint: Bowl Obstruction Time Seen by Provider: 01/04/21 16:25 Source: patient, RN notes reviewed, old records reviewed Mode of arrival: ambulatory Limitations: no limitations - History of Present Illness Initial comments: This a 65-year-old male presents emergency Department stating he's had multiple bowel obstructions. Patient states he was just in the hospital recently and in the emergency department couple nights ago. Patient was told to go home and eat a soft diet in he's done so but his belly is getting more distended more cramping and he is unable to have a bowel movement. Patient states she took mag citrate in Ex-[place]ax was able to have a bowel movement passing gas today but his abdomen still is tender. Patient states she supposed tendon pain. Patient denies any vomiting but states he is occasionally nauseated. Patient denies any fever chills per patient denies any chest pain difficult breathing shortness of breath. Patient denies any lightheadedness or dizziness. Patient denies any other symptoms at this time. - Related Data Home Medications Medication Instructions Recorded Confirmed oxyCODONE-APAP 10-325MG [Percocet 1 tab PO QID PRN 05/31/14 01/04/21 10-325 mg] carisoprodoL [Soma] 350 mg PO QID PRN 07/04/16 01/04/21 Multivitamin [Men's Multi-Vitamin] 1 tab PO DAILY 10/14/16 01/04/21 Cetirizine HCl [Zyrtec] 10 mg PO DAILY PRN 01/15/18 01/04/21 Dutasteride [Avodart] 0.5 mg PO DAILY 03/16/20 01/04/21 Iron Tab 27 mg PO DAILY 03/16/20 01/04/21 Pantoprazole Sodium [Protonix] 40 mg PO DAILY 03/16/20 01/04/21 Tadalafil [Cialis] 5 mg PO DAILY PRN 03/29/20 01/04/21 Tamsulosin [Flomax] 0.8 mg PO DAILY@1600 03/29/20 01/04/21 Zolpidem [Ambien] 10 mg PO HS PRN 11/19/20 01/04/21 Cyanocobalamin (Vitamin B-12) 1,000 mcg PO DAILY 01/04/21 01/04/21 [Vitamin B-12] Naproxen 500 mg PO BID PRN 01/04/21 01/04/21 amLODIPine [Norvasc] 5 mg PO DAILY 01/04/21 01/04/21 Previous Rx's Medication Instructions Recorded Acetaminophen Tab [Tylenol] 1,000 mg PO Q6HR PRN #30 tablet 10/30/20 Simethicone [Gas-X] 125 mg PO AC-TID PRN #20 cap 10/30/20 Allergies Allergy/AdvReac Type Severity Reaction Status Date / Time No Known Allergies Allergy Verified 01/04/21 16:56 Review of Systems ROS Statement: Those systems with pertinent positive or pertinent negative responses have been documented in the HPI. ROS Other: All systems not noted in ROS Statement are negative. Past Medical History Past Medical History: GERD/Reflux, Hearing Disorder / Deafness, Osteoarthritis (OA), Prostate Disorder Additional Past Medical History / Comment(s): Deaf in right ear, BACK PAIN, DJD, enlarged prostate, bowel obstruction, colitis History of Any Multi-Drug Resistant Organisms: MRSA Date of last positivie culture/infection: 2014 MDRO Source:: nose Past Surgical History: Back Surgery, Bowel Resection, Hernia Repair, Joint Replacement, Orthopedic Surgery Additional Past Surgical History / Comment(s): Back surgery 03-22-20, right knee replacement, right hip replacement, left hip replacement X2, PAIN PROCEDURES, COLLARBONE REPAIRED, right inguinal repair., bowel resection Past Anesthesia/Blood Transfusion Reactions: No Reported Reaction Additional Past Anesthesia/Blood Transfusion Reaction / Comment(s): No hx blood transfusion. Past Psychological History: No Psychological Hx Reported Smoking Status: Never smoker Past Alcohol Use History: Occasional Past Drug Use History: None Reported - Past Family History Father Family Medical History: Congestive Heart Failure (CHF) Brother(s) Family Medical History: Deep Vein Thrombosis (DVT) General Exam - General Exam Comments Initial Comments: GENERAL: Patient is well-developed and well-nourished. Patient is nontoxic and well- hydrated and is in mild distress. ENT: Neck is soft and supple. No significant lymphadenopathy is noted. Oropharynx is clear. Moist mucous membranes. Neck has full range of motion without eliciting any pain. EYES: The sclera were anicteric and conjunctiva were pink and moist. Extraocular movements were intact and pupils were equal round and reactive to light. Eyelids were unremarkable. PULMONARY: Unlabored respirations. Good breath sounds bilaterally. No audible rales r honchi or wheezing was noted. CARDIOVASCULAR: There is a regular rate and rhythm without any murmurs gallops or rubs. ABDOMEN: Abdomen is mildly distended decreased bowel sounds and mildly tender diffusely SKIN: Skin is clear with no lesions or rashes and otherwise unremarkable. NEUROLOGIC: Patient is alert and oriented x3. Cranial nerves II through XII are grossly intact. Motor and sensory are also intact. Normal speech, volume and content. Symmetrical smile. MUSCULOSKELETAL: Normal extremities with adequate strength and full range of motion. LYMPHATICS: No significant lymphadenopathy is noted PSYCHIATRIC: Normal psychiatric evaluation. Limitations: no limitations Course Vital Signs 01/04/21 01/04/21 13:27 16:50 Temperature 97.7 F Pulse Rate 60 58 L Respiratory 17 18 Rate Blood Pressure 107/71 119/79 O2 Sat by Pulse 100 100 Oximetry Medical Decision Making - Medical Decision Making EKG shows normal sinus rhythm at 60 bpm OR interval 280 QRSs 86 QT interval is 444 QTC is 444 patient's EKG shows no ST segment elevation or depression. X-ray shows multiple air-fluid levels and otherwise not an obvious bowel obstruction at this point. 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 - Lab Data Result diagrams: 01/04/21 16:49 01/04/21 16:49 Lab Results 01/04/21 01/04/21 01/04/21 Range/Units 16:49 16:49 16:49 WBC 5.3 (3.8-10.6) k/uL RBC 4.59 (4.30-5.90) m/uL Hgb 12.7 L (13.0-17.5) gm/dL Hct 41.0 (39.0-53.0) % MCV 89.3 (80.0-100.0) fL MCH 27.7 (25.0-35.0) pg MCHC 31.0 (31.0-37.0) g/dL RDW 16.2 H (11.5-15.5) % Plt Count 141 L (150-450) k/uL MPV 8.8 Neutrophils % 56 % Lymphocytes % 32 % Monocytes % 8 % Eosinophils % 3 % Basophils % 0 % Neutrophils # 2.9 (1.3-7.7) k/uL Lymphocytes # 1.7 (1.0-4.8) k/uL Monocytes # 0.4 (0-1.0) k/uL Eosinophils # 0.1 (0-0.7) k/uL Basophils # 0.0 (0-0.2) k/uL Anisocytosis Slight Sodium 139 (137-145) mmol/L Potassium 4.6 (3.5-5.1) mmol/L Chloride 105 (98-107) mmol/L Carbon Dioxide 26 (22-30) mmol/L Anion Gap 8 mmol/L BUN 20 (9-20) mg/dL Creatinine 1.08 (0.66-1.25) mg/dL Est GFR (CKD-EPI)AfAm 83 (>60 ml/min/1.73 sqM) Est GFR (CKD-EPI)NonAf 72 (>60 ml/min/1.73 sqM) Glucose 78 (74-99) mg/dL Plasma Lactic Acid [place] 1.1 (0.7-2.0) mmol/L Calcium 9.0 (8.4-10.2) mg/dL Total Bilirubin 0.6 (0.2-1.3) mg/dL AST 39 (17-59) U/L ALT 30 (4-49) U/L Alkaline Phosphatase 109 (38-126) U/L Total Protein 7.3 (6.3-8.2) g/dL Albumin 3.8 (3.5-5.0) g/dL Amylase 63 (30-110) U/L Lipase 13 L (23-300) U/L Disposition Clinical Impression: Bowel obstruction Disposition: Left Against Medical Advice Referrals: Shaun Wang MD [Primary Care Provider] - 1-2 days Time of Disposition: 17:53
[2021-01-04 16:51] VITALS: RESP 18
[2021-01-04 16:59] LABS: Anisocytosis Slight; Basophils % (A) 0 %; Eosinophils # (A) 0.1 k/uL (0-0.7); Eosinophils % (A) 3 %; HGB 12.7 gm/dL (13.0-17.5); Lymphocytes # (A) 1.7 k/uL (1.0-4.8); Lymphocytes % (A) 32 %; MCH 27.7 pg (25.0-35.0); MCV 89.3 fL (80.0-100.0); Mean Platelet Volume 8.8; Monocytes # (A) 0.4 k/uL (0-1.0); Monocytes % (A) 8 %; Neutrophils # (A) 2.9 k/uL (1.3-7.7); Neutrophils % (A) 56 %; Platelet Count 141 k/uL (150-450); RBC 4.59 m/uL (4.30-5.90); RDW 16.2 % (11.5-15.5); WBC 5.3 k/uL (3.8-10.6)
[2021-01-04 17:08] LABS: Albumin 3.8 g/dL (3.5-5.0); Total Bilirubin 0.6 mg/dL (0.2-1.3); Total Protein 7.3 g/dL (6.3-8.2)
[2021-01-04 17:34] LABS: Potassium 4.6 mmol/L (3.5-5.1)
--- NOTE | 2021-01-04 17:48 | XR ---
EXAMINATION TYPE: XR KUB DATE OF EXAM: 01/04/2021 5:02 PM CLINICAL HISTORY: Abdominal pain. TECHNIQUE: Upright images of the abdomen and pelvis were obtained COMPARISON: 01/03/2021 CT abdomen and pelvis. FINDINGS: Nonspecific visualized bowel gas pattern. Mild nonspecific air-fluid levels. There is no vi sceromegaly, pneumoperitoneum, or abnormal calcification appreciated. The lung bases are clear. Lumba r spine fixation hardware. Incompletely visualized bilateral hip arthroplasties with dystrophic calci fications of the bilateral hips. IMPRESSION: Nonspecific bowel gas pattern. The dilated small bowel loops on 01/03/2021 CT comparison were primari ly fluid-filled, therefore likely poorly visualized on radiograph and may be better followed with CT.
[2021-01-04 17:56] VITALS: BP 121/64; PULSE 60
[2021-01-04 17:58] LABS: Appearance,Urine Clear (Clear); Bilirubin,Urine Negative (Negative); Blood,Urine Negative (Negative); Color,Urine Yellow; Glucose,Urine (UA) Negative (Negative); Ketones,Urine Negative (Negative); Leukocyte Esterase,Urine Negative (Negative); Nitrite,Urine Negative (Negative); PH, Urine 5.5 (5.0-8.0); Protein,Urine Negative (Negative); Specific Gravity,Urine 1.023 (1.001-1.035); Urobilinogen,Urine <2.0 mg/dL (<2.0)
== END 2021-01-04 17:53 | disposition left against medical advice (07) ==
LOC: EC 12:40
DX: K56.609 Unspecified intestinal obstruction, unspecified as to partial versus complete obstruction (principal); K21.9 Gastro-esophageal reflux disease without esophagitis; M19.90 Unspecified osteoarthritis, unspecified site; Z96.651 Presence of right artificial knee joint
CPT/HCPCS: 99284; 96374; 36415; 93005; 80053; 82150; 83605; 83690; 85025; 81003; 74018; J1170

== ENCOUNTER 2021-01-04 22:44 | Emergency (ER) | payer MEDICARE, OTHER ==
[2021-01-04 22:49] VITALS: BP 156/91; PULSE 66; RESP 20; TEMP 97
--- NOTE | 2021-01-04 23:21 | ED ---
General Adult HPI - General Chief complaint: Abdominal Pain Stated complaint: Bowel Obstruction Time Seen by Provider: 01/04/21 22:56 Source: patient, RN notes reviewed, old records reviewed Mode of arrival: ambulatory Limitations: no limitations - History of Present Illness Initial comments: This is a well-appearing 65-year-old male presents to the emergency room with complaints of abdominal pain. Patient was seen 2 days ago for the same pain and had a CAT scan and earlier today for the same abdominal pain. He does have a history of small bowel obstructions. He had a hernia repair done at the end of October and a small bowel obstruction in November. He is patient of Dr. Georges. He does have an appointment with her on Friday. He states he has been having crampy type abdominal pain 7 out of 10 for the past couple of days. He states he has had no nausea or vomiting. Denies any fevers, chest pain or difficulty in breathing. He has had two bowel movements today and states is passing gas rectally. -: days(s) (2) Location: abdomen Radiation: non-radiation Severity scale (1-10): 7 Consistency: intermittent Associated Symptoms: denies other symptoms - Related Data Home Medications Medication Instructions Recorded Confirmed oxyCODONE-APAP 10-325MG [Percocet 1 tab PO QID PRN 05/31/14 01/04/21 10-325 mg] carisoprodoL [Soma] 350 mg PO QID PRN 07/04/16 01/04/21 Multivitamin [Men's Multi-Vitamin] 1 tab PO DAILY 10/14/16 01/04/21 Cetirizine HCl [Zyrtec] 10 mg PO DAILY PRN 01/15/18 01/04/21 Dutasteride [Avodart] 0.5 mg PO DAILY 03/16/20 01/04/21 Iron Tab 27 mg PO DAILY 03/16/20 01/04/21 Pantoprazole Sodium [Protonix] 40 mg PO DAILY 03/16/20 01/04/21 Tadalafil [Cialis] 5 mg PO DAILY PRN 03/29/20 01/04/21 Tamsulosin [Flomax] 0.8 mg PO DAILY@1600 03/29/20 01/04/21 Zolpidem [Ambien] 10 mg PO HS PRN 11/19/20 01/04/21 Cyanocobalamin (Vitamin B-12) 1,000 mcg PO DAILY 01/04/21 01/04/21 [Vitamin B-12] Naproxen 500 mg PO BID PRN 01/04/21 01/04/21 amLODIPine [Norvasc] 5 mg PO DAILY 01/04/21 01/04/21 Previous Rx's Medication Instructions Recorded Acetaminophen Tab [Tylenol] 1,000 mg PO Q6HR PRN #30 tablet 10/30/20 Simethicone [Gas-X] 125 mg PO AC-TID PRN #20 cap 10/30/20 Allergies Allergy/AdvReac Type Severity Reaction Status Date / Time No Known Allergies Allergy Verified 01/04/21 22:48 Review of Systems ROS Statement: Those systems with pertinent positive or pertinent negative responses have been documented in the HPI. ROS Other: All systems not noted in ROS Statement are negative. Past Medical History Past Medical History: GERD/Reflux, Hearing Disorder / Deafness, Osteoarthritis (OA), Prostate Disorder Additional Past Medical History / Comment(s): Deaf in right ear, BACK PAIN, DJD, enlarged prostate, bowel obstruction, colitis History of Any Multi-Drug Resistant Organisms: MRSA Date of last positivie culture/infection: 2014 MDRO Source:: nose Past Surgical History: Back Surgery, Bowel Resection, Hernia Repair, Joint Replacement, Orthopedic Surgery Additional Past Surgical History / Comment(s): Back surgery 03-22-20, right knee replacement, right hip replacement, left hip replacement X2, PAIN PROCEDURES, COLLARBONE REPAIRED, right inguinal repair., bowel resection Past Anesthesia/Blood Transfusion Reactions: No Reported Reaction Additional Past Anesthesia/Blood Transfusion Reaction / Comment(s): No hx blood transfusion. Past Psychological History: No Psychological Hx Reported Smoking Status: Never smoker Past Alcohol Use History: Occasional Past Drug Use History: None Reported - Past Family History Father Family Medical History: Congestive Heart Failure (CHF) Brother(s) Family Medical History: Deep Vein Thrombosis (DVT) General Exam Limitations: no limitations General appearance: alert, in no apparent distress Head exam: Present: atraumatic, normocephalic, normal inspection Eye exam: Present: normal appearance, EOMI ENT exam: Present: normal exam, normal oropharynx, mucous membranes moist Neck exam: Present: normal inspection, full ROM. Absent: tenderness, meningismus, lymphadenopathy, thyromegaly Respiratory exam: Present: normal lung sounds bilaterally. Absent: respiratory distress, wheezes, rales, rhonchi, stridor Cardiovascular Exam: Present: regular rate, normal rhythm, normal heart sounds. Absent: systolic murmur, diastolic murmur, rubs, gallop, clicks GI/Abdominal exam: Present: soft, distended, tenderness, normal bowel sounds. Absent: guarding, rebound, rigid Extremities exam: Present: normal inspection, full ROM, normal capillary refill. Absent: tenderness, pedal edema, joint swelling, calf tenderness Back exam: Absent: CVA tenderness (R), CVA tenderness (L) Neurological exam: Present: alert, oriented X3, normal gait Psychiatric exam: Present: normal affect, normal mood Skin exam: Present: warm, dry, intact, normal color. Absent: rash Course Vital Signs 01/04/21 22:45 Temperature 97 F L Pulse Rate 66 Respiratory 20 Rate Blood Pressure 156/91 O2 Sat by Pulse 100 Oximetry Medical Decision Making - Medical Decision Making Patient's return to the emergency room after signing out AGAINST MEDICAL ADVICE. He was coming in for abdominal pain and a possible small bowel obstruction. Patient states that he had umbilical hernia surgery in October he had a small bowel obstruction in November and had surgery with Dr. Steele. He does have an appointment with her on this Friday. But he has been having some abdominal pain which prompted him to come to the emergency room today. He states that his pain is 7 out of 10. He states that when he did leave the emergency room today he did go home and have a bowel movement. He states he had another bowel movement while being in the emergency room tonight at this visit. He has been having bowel movements and passing gas. He denies any vomiting or nausea. KUB on a previous visit today shows a nonspecific bowel gas pattern. Mild nonspecific air-fluid levels. His electrolytes were stable and urinalysis was negative. There is no evidence of leukocytosis. I did discuss this case with Dr. Meeks. Patient will be discharged home to follow up with Dr. Steele on Friday as scheduled and return to the emergency room with any new or worsening symptoms. He has no vomiting at this time and he states that he is passing gas and having bowel movements. I stressed to the patient that at any time he stops passing gas and feels nauseated or vomiting he is to return to the emergency room. Patient understands and is agreeable to being discharged home. Disposition Clinical Impression: Abdominal pain Disposition: HOME SELF-CARE Condition: Good Instructions (If sedation given, give patient instructions): Abdominal Pain (ED) Additional Instructions: Return to the emergency room with any new or worsening symptoms including vomiting, increased abdominal pain or inability to pass gas or stool. Increase your fluid intake. Eat a high-fiber diet including beans, salads, soups, apples and whole grains. Is patient prescribed a controlled substance at d/c from ED?: No Referrals: Shaun Wang MD [Primary Care Provider] - 1-2 days Lizet Steele MD [STAFF PHYSICIAN] - 1-2 days Time of Disposition: 23:21
== END 2021-01-04 23:51 | disposition home or self-care (01) ==
LOC: EC 22:44
DX: R10.9 Unspecified abdominal pain (principal); K21.9 Gastro-esophageal reflux disease without esophagitis
CPT/HCPCS: 99283

== ENCOUNTER 2021-07-31 19:02 | Emergency (ER) | payer MEDICARE, OTHER ==
[2021-07-31 19:10] VITALS: TEMP 97.7
[2021-07-31 19:32] LABS: Basophils % (A) 0 %; Eosinophils # (A) 0.2 k/uL (0-0.7); Eosinophils % (A) 3 %; HCT 42.5 % (39.0-53.0); HGB 13.4 gm/dL (13.0-17.5); Hypochromasia Slight; Lymphocytes # (A) 2.6 k/uL (1.0-4.8); Lymphocytes % (A) 36 %; MCH 27.7 pg (25.0-35.0); MCHC 31.4 g/dL (31.0-37.0); MCV 88.1 fL (80.0-100.0); Mean Platelet Volume 9.4; Monocytes # (A) 0.3 k/uL (0-1.0); Monocytes % (A) 4 %; Neutrophils % (A) 55 %; Platelet Count 159 k/uL (150-450); RBC 4.83 m/uL (4.30-5.90); RDW 15.9 % (11.5-15.5); WBC 7.3 k/uL (3.8-10.6)
[2021-07-31 19:33] LABS: Appearance,Urine Clear (Clear); Bilirubin,Urine Negative (Negative); Blood,Urine Negative (Negative); Color,Urine Light Yellow; Glucose,Urine (UA) Negative (Negative); Ketones,Urine Negative (Negative); Leukocyte Esterase,Urine Negative (Negative); Nitrite,Urine Negative (Negative); Protein,Urine Negative (Negative); Specific Gravity,Urine 1.019 (1.001-1.035); Urobilinogen,Urine <2.0 mg/dL (<2.0)
[2021-07-31 19:46] LABS: Albumin 4.3 g/dL (3.5-5.0); Calcium 9.1 mg/dL (8.4-10.2); Potassium 4.3 mmol/L (3.5-5.1); Total Bilirubin 0.4 mg/dL (0.2-1.3); Total Protein 7.2 g/dL (6.3-8.2)
--- NOTE | 2021-07-31 20:19 | XR ---
EXAMINATION TYPE: XR KUB DATE OF EXAM: 07/31/2021 7:44 PM INDICATION: Patient age:Male; 65 years old; Reason for study: abdominal pain; COMPARISON: CT abdomen pelvis 01/03/2021. TECHNIQUE: One radiographic view of the abdomen was obtained. FINDINGS: Fixation hardware in the lower spine. There is no evidence for hardware failure. There is n onobstructive bowel gas pattern. Bilateral hip arthroplasties with hardware in appropriate position. There is dystrophic calcifications presumably postsurgical bilaterally around the hips. IMPRESSION: Postsurgical changes of the spine and hips with hardware in place and intact. Nonobstructive bowel gas pattern.
[2021-07-31] MEDS ORDERED: SODIUM CHLORIDE 0.9% 1,000 ML IV STA (21:01)
[2021-07-31] MEDS ORDERED: ONDANSETRON 4 MG/2 ML VIAL IVP STA (21:01)
[2021-07-31] MEDS ORDERED: MORPHINE SULFATE 4 MG/ML SYRINGE IV STA (21:01)
--- NOTE | 2021-07-31 21:05 | ED ---
General Adult HPI - General Chief complaint: Abdominal Pain Stated complaint: abd pain Time Seen by Provider: 07/31/21 20:40 Source: patient, RN notes reviewed Mode of arrival: ambulatory Limitations: no limitations - History of Present Illness Initial comments: 65-year-old male presents to the emergency department for evaluation of nausea and abdominal pain, one hour prior to arrival. Patient states his pain began after eating and is concerned about food poisoning. States he has not had any vomiting or diarrhea. Has had 3 regular soft formed bowel movements today. Does report a history of bowel obstructions and states this pain is different. Denies fever, chills, headache, dizziness, chest pain, difficulty breathing, vomiting, diarrhea, dysuria, or hematuria. - Related Data Home Medications Medication Instructions Recorded Confirmed oxyCODONE-APAP 10-325MG [Percocet 1 tab PO QID PRN 05/31/14 07/31/21 10-325 mg] carisoprodoL [Soma] 350 mg PO QID PRN 07/04/16 07/31/21 Multivitamin [Men's Multi-Vitamin] 1 tab PO DAILY 10/14/16 07/31/21 Cetirizine HCl [Zyrtec] 10 mg PO BID PRN 01/15/18 07/31/21 Dutasteride [Avodart] 0.5 mg PO HS 03/16/20 07/31/21 Iron Tab 27 mg PO DAILY 03/16/20 07/31/21 Pantoprazole Sodium [Protonix] 40 mg PO DAILY 03/16/20 07/31/21 Tadalafil [Cialis] 5 mg PO DAILY PRN 03/29/20 07/31/21 Tamsulosin [Flomax] 0.8 mg PO HS 03/29/20 07/31/21 Zolpidem [Ambien] 10 mg PO HS PRN 11/19/20 07/31/21 Cyanocobalamin (Vitamin B-12) 1,000 mcg PO DAILY 01/04/21 07/31/21 [Vitamin B-12] Naproxen 500 mg PO BID PRN 01/04/21 07/31/21 amLODIPine [Norvasc] 5 mg PO DAILY 01/04/21 07/31/21 Meloxicam [Mobic] 7.5 - 15 mg PO DAILY PRN 07/31/21 07/31/21 Simethicone [Gas-X] 125 mg PO AC-TID PRN 07/31/21 07/31/21 Previous Rx's Medication Instructions Recorded Acetaminophen Tab [Tylenol] 1,000 mg PO Q6HR PRN #30 tablet 10/30/20 Allergies Allergy/AdvReac Type Severity Reaction Status Date / Time No Known Allergies Allergy Verified 07/31/21 22:14 Review of Systems ROS Statement: Those systems with pertinent positive or pertinent negative responses have been documented in the HPI. ROS Other: All systems not noted in ROS Statement are negative. Past Medical History Past Medical History: GERD/Reflux, Hearing Disorder / Deafness, Osteoarthritis (OA), Prostate Disorder Additional Past Medical History / Comment(s): Deaf in right ear, BACK PAIN, DJD, enlarged prostate, bowel obstruction, colitis History of Any Multi-Drug Resistant Organisms: MRSA Date of last positivie culture/infection: 2014 MDRO Source:: nose Past Surgical History: Back Surgery, Bowel Resection, Hernia Repair, Joint Replacement, Orthopedic Surgery Additional Past Surgical History / Comment(s): Back surgery 03-22-20, right knee replacement, right hip replacement, left hip replacement X2, PAIN PROCEDURES, COLLARBONE REPAIRED, right inguinal repair., bowel resection Past Anesthesia/Blood Transfusion Reactions: No Reported Reaction Additional Past Anesthesia/Blood Transfusion Reaction / Comment(s): No hx blood transfusion. Past Psychological History: No Psychological Hx Reported Smoking Status: Never smoker Past Alcohol Use History: Occasional Past Drug Use History: None Reported - Past Family History Father Family Medical History: Congestive Heart Failure (CHF) Brother(s) Family Medical History: Deep Vein Thrombosis (DVT) General Exam Limitations: no limitations (Well-developed, well-nourished male in no acute distress. Initial temperature 97.7, pulse 55, respirations 16, blood pressure 174/71, pulse ox 99% on room air.) General appearance: alert, in no apparent distress ENT exam: Present: normal exam, normal oropharynx, mucous membranes moist Neck exam: Present: normal inspection, full ROM Respiratory exam: Present: normal lung sounds bilaterally. Absent: respiratory distress, wheezes, rales, rhonchi, stridor, chest wall tenderness Cardiovascular Exam: Present: regular rate, normal rhythm, normal heart sounds. Absent: systolic murmur, diastolic murmur, rubs, gallop, clicks GI/Abdominal exam: Present: soft, tenderness (RUQ/Rt mid abd), normal bowel sounds. Absent: distended, guarding, rebound, rigid Back exam: Absent: CVA tenderness (R), CVA tenderness (L) Neurological exam: Present: alert, oriented X3 Psychiatric exam: Present: normal affect, normal mood Skin exam: Present: warm, dry, intact, normal color. Absent: rash Course Vital Signs 07/31/21 08/01/21 19:08 00:57 Temperature 97.7 F Pulse Rate 55 L 61 Respiratory 16 18 Rate Blood Pressure 174/71 159/81 O2 Sat by Pulse 99 94 L Oximetry - Reevaluation(s) Reevaluation #1: 07/31/21 22:25 Upon reevaluation, patient states nausea is improved but pain persists. He will be given an additional dose of pain medication. Explained that CT is ordered and will occur as soon as machine is available. 08/01/21 00:15 Patient is updated on findings. Given the fact that he is able to tolerate oral intake and is having regular soft formed stools, he will be discharged home to follow-up with his surgeon on an outpatient basis. Patient verbalizes understanding and agrees with this plan. Medical Decision Making - Medical Decision Making This is a 65-year-old male with a past medical history of bowel resection, bowel obstruction, GERD, and chronic back pain who presents to the emergency department for evaluation of right mid to upper abdominal pain, onset this afte rnoon after eating food. Upon exam, patient is well-appearing and in no acute distress. Abdomen is soft with nonlocalized tenderness upon palpation of the periumbilical and right mid quadrant of the abdomen. Laboratory studies were obtained and are unremarkable. KUB x-ray is negative. CT of the abdomen pelvis with contrast shows concern for distal mechanical small bowel obstruction though is not significantly different than old exam. Given that patient is tolerating oral intake and is having formed stool he will be discharged home to follow up with his surgeon on an outpatient basis. He is prescribed Zofran as needed for nausea. Strict return parameters were discussed in detail. Patient and family verbalized understanding and agreed with this plan. Attending: Dave. - Lab Data Result diagrams: 07/31/21 19:10 07/31/21 19:10 Lab Results 0607/31/21 07/31/21 Range/Units 19:10 19:10 19:10 WBC 7.3 (3.8-10.6) k/uL RBC 4.83 (4.30-5.90) m/uL Hgb 13.4 (13.0-17.5) gm/dL Hct 42.5 (39.0-53.0) % MCV 88.1 (80.0-100.0) fL MCH 27.7 (25.0-35.0) pg MCHC 31.4 (31.0-37.0) g/dL RDW 15.9 H (11.5-15.5) % Plt Count 159 (150-450) k/uL MPV 9.4 Neutrophils % 55 % Lymphocytes % 36 % Monocytes % 4 % Eosinophils % 3 % Basophils % 0 % Neutrophils # 4.0 (1.3-7.7) k/uL Lymphocytes # 2.6 (1.0-4.8) k/uL Monocytes # 0.3 (0-1.0) k/uL Eosinophils # 0.2 (0-0.7) k/uL Basophils # 0.0 (0-0.2) k/uL Hypochromasia Slight Sodium 138 (137-145) mmol/L Potassium 4.3 (3.5-5.1) mmol/L Chloride 106 (98-107) mmol/L Carbon Dioxide 26 (22-30) mmol/L Anion Gap 6 mmol/L BUN 22 H (9-20) mg/dL Creatinine 1.26 H (0.66-1.25) mg/dL Est GFR (CKD-EPI)AfAm 69 (>60 ml/min/1.73 sqM) Est GFR (CKD-EPI)NonAf 60 (>60 ml/min/1.73 sqM) Glucose 89 (74-99) mg/dL Calcium 9.1 (8.4-10.2) mg/dL Total Bilirubin 0.4 (0.2-1.3) mg/dL AST 44 (17-59) U/L ALT 39 (4-49) U/L Alkaline Phosphatase 124 (38-126) U/L Total Protein 7.2 (6.3-8.2) g/dL Albumin 4.3 (3.5-5.0) g/dL Amylase 80 (30-110) U/L Lipase 32 (23-300) U/L Urine Color Light Yellow Urine Appearance Clear (Clear) Urine pH 7.0 (5.0-8.0) Ur Specific [place] 1.019 (1.001-1.035) Urine Protein Negative (Negative) Urine Glucose (UA) Negative (Negative) Urine Ketones Negative (Negative) Urine Blood Negative (Negative) Urine Nitrite Negative (Negative) Urine Bilirubin Negative (Negative) Urine Urobilinogen <2.0 (<2.0) mg/dL Ur Leukocyte Esterase Negative (Negative) - Radiology Data Radiology results: report reviewed, image reviewed KUB x-ray was obtained. Report was reviewed in its entirety. Impression per Dr. Dumont as postsurgical changes of the spine and hips with hardware in place and intact. Nonobstructive bowel gas pattern. CT of the abdomen and pelvis with contrast was obtained. Report was reviewed in its entirety. Impression per Dr. Thurston as multiple dilated small loops suggestive of a distal mechanical small bowel obstruction and not significantly different than old exam. Previous surgery at the cecum. There is clearing of the mild subsegmental atelectasis at the lung bases compared to old exam. Disposition Clinical Impression: Partial bowel obstruction Disposition: HOME SELF-CARE Condition: Stable Instructions (If sedation given, give patient instructions): Bowel Obstruction (ED) Additional Instructions: Your CT from today is comparable to previous exams. It is important to increase fiber in your diet. Drink plenty of fluids. Follow-up with Dr. Steele. Call the office in the morning to schedule an appointment. Return to the emergency department with any new, worsening, or concerning symptoms such as diarrhea, vomiting, or inability to pass formed stool. Is patient prescribed a controlled substance at d/c from ED?: No Referrals: Shaun Wang MD [Primary Care Provider] - 1-2 days Lizet Steele MD [STAFF PHYSICIAN] - 1-2 days Time of Disposition: 00:47
[2021-07-31] MEDS ORDERED: HYDROmorphone 0.5 MG/0.5 ML SYRINGE IVP STA (23:40)
--- NOTE | 2021-07-31 23:42 | CT ---
EXAMINATION TYPE: CT abdomen pelvis w con DATE OF EXAM: 07/31/2021 COMPARISON: 01/03/2021 HISTORY: upper abdominal pain after eating CT DLP: 1741.3 mGycm Automated exposure control for dose reduction was used. CONTRAST: Performed with IV Contrast, patient injected with 100 mL of Isovue 300. Images obtained from the diaphragm to the floor the pelvis with IV contrast. Lung bases are clear. No pleural effusion. Heart size is normal. No pericardial effusion. Liver splee n and stomach pancreas appear intact. Gallbladder is intact. The bile ducts are not dilated. There is no adrenal mass. Kidneys of normal size. No hydronephrosis. There is 2 cm cortical cyst late ral left kidney. There is 2 mm calculus upper pole right kidney. There is no retroperitoneal adenopat hy. Ureters are not dilated. There are surgical clips at the cecum. The bladder distends smoothly. Th ere is extensive metal artifact from bilateral hip prosthesis. No free fluid in the pelvis. No pelvic mass. There are multiple dilated fluid-filled small bowel loops in the midabdomen. Small bowel measures up to 3.9 cm. Small bowel appears dilated up to the right colon. Large bowel not dilated. There is some fecal material in the distal ileum. The lumbar vertebra show posterior fusion surgery from L3 to L5. No compression deformity seen. No evidence of free air. No mesenteric edema. No ascites. IMPRESSION: Multiple dilated small bowel loops suggestive of a distal mechanical small bowel obstruction and not significantly different than old exam. Previous surgery at the cecum. There is clearing of the mild s ubsegmental atelectasis at the lung bases compared to old exam.
[2021-08-01 00:58] VITALS: BP 159/81; PULSE 61; RESP 18
== END 2021-08-01 01:12 | disposition home or self-care (01) ==
LOC: EC 19:02
DX: K56.600 Partial intestinal obstruction, unspecified as to cause (principal); K21.9 Gastro-esophageal reflux disease without esophagitis; Z79.83 Long term (current) use of bisphosphonates
CPT/HCPCS: 36415; 80053; 82150; 83690; 85025; 81003; 74018; 74177; 99284; 96374; 96375; 96361; J2270; J2405; J1170; Q9967

== ENCOUNTER 2021-10-16 11:59 | Emergency (ER) | payer MEDICARE, OTHER ==
[2021-10-16 12:08] VITALS: RESP 18; TEMP 97.4
[2021-10-16 13:30] LABS: Albumin 3.9 g/dL (3.5-5.0); Calcium 8.6 mg/dL (8.4-10.2); Potassium 4.3 mmol/L (3.5-5.1); Total Bilirubin 0.4 mg/dL (0.2-1.3); Total Protein 6.9 g/dL (6.3-8.2)
--- NOTE | 2021-10-16 13:30 | XR ---
EXAMINATION TYPE: XR KUB DATE OF EXAM: 10/16/2021 COMPARISON: 07/31/2021 HISTORY: Pain TECHNIQUE: One view abdominal series FINDINGS: Postsurgical change in the lower spine. There is nonobstructive bowel gas pattern. Bilateral hip arth roplasties noted. There is dystrophic calcifications or heterotopic ossification presumably postsurgi emily bilaterally around the hips. IMPRESSION: 1. Nonspecific abdomen.
[2021-10-16] MEDS ORDERED: HYDROmorphone 0.5 MG/0.5 ML SYRINGE IVP STA (14:13)
[2021-10-16] MEDS ORDERED: ONDANSETRON 4 MG/2 ML VIAL IVP STA (14:13)
[2021-10-16 14:38] LABS: Basophils % (A) 1 %; Eosinophils # (A) 0.2 k/uL (0-0.7); Eosinophils % (A) 4 %; HCT 42.4 % (39.0-53.0); HGB 13.3 gm/dL (13.0-17.5); Hypochromasia Slight; Lymphocytes # (A) 2.3 k/uL (1.0-4.8); Lymphocytes % (A) 46 %; MCH 27.4 pg (25.0-35.0); MCHC 31.3 g/dL (31.0-37.0); MCV 87.5 fL (80.0-100.0); Mean Platelet Volume 9.2; Monocytes # (A) 0.3 k/uL (0-1.0); Monocytes % (A) 6 %; Neutrophils # (A) 2.1 k/uL (1.3-7.7); Neutrophils % (A) 41 %; Platelet Count 141 k/uL (150-450); RBC 4.85 m/uL (4.30-5.90); RDW 15.7 % (11.5-15.5); WBC 5.1 k/uL (3.8-10.6)
--- NOTE | 2021-10-16 14:52 | CT ---
EXAMINATION TYPE: CT abdomen pelvis w con CT DLP: 1607.8 mGycm, Automated exposure control for dose reduction was used. DATE OF EXAM: 10/16/2021 2:41 PM COMPARISON: CT abdomen pelvis most recent from 07/31/2021 CLINICAL INDICATION:Male, 65 years old with history of pain; lower abdominal/pelvic pain TECHNIQUE: Axial CT of the abdomen and pelvis. Sagittal and coronal reformats were created on a [email or web address] workstation. Contrast used:100 mL of Isovue 300 with IV Contrast, Oral contrast used: without Oral Contrast FINDINGS: LOWER CHEST: Unremarkable ABDOMEN LIVER: Unremarkable GALLBLADDER AND BILE DUCTS: Unremarkable. PANCREAS: Unremarkable. SPLEEN: Unremarkable. ADRENAL GLANDS: Unremarkable. KIDNEYS AND URETERS: Nonobstructing right renal calculus. Left renal cyst present. PELVIS Streak artifact limits evaluation of the pelvis. BLADDER: Unremarkable REPRODUCTIVE: Unremarkable. ABDOMEN & PELVIS STOMACH AND BOWEL: No evidence of bowel obstruction. Postsurgical changes to the colon. PERITONEUM: No evidence of pneumoperitoneum or free fluid. VASCULATURE: No evidence of aortic aneurysm. MUSCULOSKELETAL: Hip arthroplasties are noted bilaterally. Hardware appears intact. Streak artifact l imits evaluation the pelvis. Fixation hardware noted at L3-L4 and L5 with discectomy at L3-L4 and L4- L5. LYMPH NODES: No gross evidence for lymphadenopathy. SOFT TISSUE/ABDOMINAL WALL: Unremarkable IMPRESSION: 1. No evidence for acute process within the abdomen or pelvis. Limited evaluation of the pelvis secon concepción to streak artifact from bilateral hip prostheses. 2. Nonobstructing right renal calculus. 3. Post surgical changes to the colon without evidence of obstruction.
[2021-10-16 14:58] LABS: Appearance,Urine Clear (Clear); Bilirubin,Urine Negative (Negative); Blood,Urine Negative (Negative); Color,Urine Yellow; Glucose,Urine (UA) Negative (Negative); Ketones,Urine Negative (Negative); Leukocyte Esterase,Urine Negative (Negative); Nitrite,Urine Negative (Negative); PH, Urine 5.5 (5.0-8.0); Protein,Urine Negative (Negative); Specific Gravity,Urine 1.032 (1.001-1.035); Urobilinogen,Urine <2.0 mg/dL (<2.0)
--- NOTE | 2021-10-16 15:10 | ED ---
Abdominal Pain HPI - General Chief Complaint: Abdominal Pain Stated Complaint: abd pain Time Seen by Provider: 10/16/21 13:42 Source: patient, RN notes reviewed Mode of arrival: ambulatory Limitations: no limitations - History of Present Illness Initial Comments: 65-year-old male presents emergency Department chief complaint abdominal pain. Patient states he's had prior hernia repair, bowel obstructions in the past in which she had surgery by Dr. Steele. Patient states that serum some mild abdominal discomfort and states that the pain is actually improving at this point. Patient states she's had one episode of loose stool. He has no dysuria no hematuria no fevers or chills no chest pain or shortness of breath. Patient states she was just concerned about possible obstruction. Patient offers no other associated complaints. - Related Data Home Medications Medication Instructions Recorded Confirmed oxyCODONE-APAP 10-325MG [Percocet 1 tab PO QID PRN 05/31/14 07/31/21 10-325 mg] carisoprodoL [Soma] 350 mg PO QID PRN 07/04/16 07/31/21 Multivitamin [Men's Multi-Vitamin] 1 tab PO DAILY 10/14/16 07/31/21 Cetirizine HCl [Zyrtec] 10 mg PO BID PRN 01/15/18 07/31/21 Dutasteride [Avodart] 0.5 mg PO HS 03/16/20 07/31/21 Iron Tab 27 mg PO DAILY 03/16/20 07/31/21 Pantoprazole Sodium [Protonix] 40 mg PO DAILY 03/16/20 07/31/21 Tamsulosin [Flomax] 0.8 mg PO HS 03/29/20 07/31/21 tadalafiL [Cialis] 5 mg PO DAILY PRN 03/29/20 07/31/21 Zolpidem [Ambien] 10 mg PO HS PRN 11/19/20 07/31/21 Cyanocobalamin (Vitamin B-12) 1,000 mcg PO DAILY 01/04/21 07/31/21 [Vitamin B-12] Naproxen 500 mg PO BID PRN 01/04/21 07/31/21 amLODIPine [Norvasc] 5 mg PO DAILY 01/04/21 07/31/21 Meloxicam [Mobic] 7.5 - 15 mg PO DAILY PRN 07/31/21 07/31/21 Simethicone [Gas-X] 125 mg PO AC-TID PRN 07/31/21 07/31/21 Previous Rx's Medication Instructions Recorded Acetaminophen Tab [Tylenol] 1,000 mg PO Q6HR PRN #30 tablet 10/30/20 Allergies Allergy/AdvReac Type Severity Reaction Status Date / Time No Known Allergies Allergy Verified 10/16/21 12:07 Review of Systems ROS Statement: Those systems with pertinent positive or pertinent negative responses have been documented in the HPI. ROS Other: All systems not noted in ROS Statement are negative. Past Medical History Past Medical History: GERD/Reflux, Hearing Disorder / Deafness, Osteoarthritis (OA), Prostate Disorder Additional Past Medical History / Comment(s): Deaf in right ear, BACK PAIN, DJD, enlarged prostate, bowel obstruction, colitis History of Any Multi-Drug Resistant Organisms: MRSA Date of last positivie culture/infection: 2014 MDRO Source:: nose Past Surgical History: Back Surgery, Bowel Resection, Hernia Repair, Joint Replacement, Orthopedic Surgery Additional Past Surgical History / Comment(s): Back surgery 03-22-20, right knee replacement, right hip replacement, left hip replacement X2, PAIN PROCEDURES, COLLARBONE REPAIRED, right inguinal repair., bowel resection Past Anesthesia/Blood Transfusion Reactions: No Reported Reaction Additional Past Anesthesia/Blood Transfusion Reaction / Comment(s): No hx blood transfusion. Past Psychological History: No Psychological Hx Reported Smoking Status: Never smoker Past Alcohol Use History: Occasional Past Drug Use History: None Reported - Past Family History Father Family Medical History: Congestive Heart Failure (CHF) Brother(s) Family Medical History: Deep Vein Thrombosis (DVT) General Exam Limitations: no limitations General appearance: alert, in no apparent distress Head exam: Present: atraumatic, normocephalic, normal inspection Eye exam: Present: normal appearance, PERRL, EOMI. Absent: scleral icterus, conjunctival injection, periorbital swelling ENT exam: Present: normal exam, mucous membranes moist Neck exam: Present: normal inspection, full ROM. Absent: tenderness, meningismus, lymphadenopathy Respiratory exam: Present: normal lung sounds bilaterally. Absent: respiratory distress, wheezes, rales, rhonchi, stridor Cardiovascular Exam: Present: regular rate, normal rhythm, normal heart sounds. Absent: systolic murmur, diastolic murmur, rubs, gallop, clicks GI/Abdominal exam: Present: soft, tenderness (Minimal), normal bowel sounds. Absent: distended, guarding, rebound, rigid Course Vital Signs 10/16/21 12:03 Temperature 97.4 F L Pulse Rate 51 L Respiratory 18 Rate Blood Pressure 103/63 O2 Sat by Pulse 100 Oximetry Medical Decision Making - Medical Decision Making 65-year-old male presents from for abdominal pain. Patient is concerned about possible obstruction as he's had in the past. Patient had full workup including labs, CT which was unremarkable findings. Patient does admit the pain is improving. Patient tolerating oral intake has pass gas in emergency department. Patient we discharged admission return parameters were discussed. - Lab Data Result diagrams: 10/16/21 13:16 10/16/21 13:05 Lab Results 10/16/21 10/16/21 10/16/21 Range/Units 13:05 13:16 14:51 WBC 5.1 (3.8-10.6) k/uL RBC 4.85 (4.30-5.90) m/uL Hgb 13.3 (13.0-17.5) gm/dL Hct 42.4 (39.0-53.0) % MCV 87.5 (80.0-100.0) fL MCH 27.4 (25.0-35.0) pg MCHC 31.3 (31.0-37.0) g/dL RDW 15.7 H (11.5-15.5) % Plt Count 141 L (150-450) k/uL MPV 9.2 Neutrophils % 41 % Lymphocytes % 46 % Monocytes % 6 % Eosinophils % 4 % Basophils % 1 % Neutrophils # 2.1 (1.3-7.7) k/uL Lymphocytes # 2.3 (1.0-4.8) k/uL Monocytes # 0.3 (0-1.0) k/uL Eosinophils # 0.2 (0-0.7) k/uL Basophils # 0.0 (0-0.2) k/uL Hypochromasia Slight Sodium 138 (137-145) mmol/L Potassium 4.3 (3.5-5.1) mmol/L Chloride 108 H (98-107) mmol/L Carbon Dioxide 23 (22-30) mmol/L Anion Gap 7 mmol/L BUN 21 H (9-20) mg/dL Creatinine 1.23 (0.66-1.25) mg/dL Est GFR (CKD-EPI)AfAm 72 (>60 ml/min/1.73 sqM) Est GFR (CKD-EPI)NonAf 62 (>60 ml/min/1.73 sqM) Glucose 93 (74-99) mg/dL Calcium 8.6 (8.4-10.2) mg/dL Total Bilirubin 0.4 (0.2-1.3) mg/dL AST 37 (17-59) U/L ALT 29 (4-49) U/L Alkaline Phosphatase 132 H (38-126) U/L Total Protein 6.9 (6.3-8.2) g/dL Albumin 3.9 (3.5-5.0) g/dL Amylase 86 (30-110) U/L Lipase 100 (23-300) U/L Urine Color Yellow Urine Appearance Clear (Clear) Urine pH 5.5 (5.0-8.0) Ur Specific [place] 1.032 (1.001-1.035) Urine Protein Negative (Negative) Urine Glucose (UA) Negative (Negative) Urine Ketones Negative (Negative) Urine Blood Negative (Negative) Urine Nitrite Negative (Negative) Urine Bilirubin Negative (Negative) Urine Urobilinogen <2.0 (<2.0) mg/dL Ur Leukocyte Esterase Negative (Negative) Disposition Clinical Impression: Abdominal pain Disposition: HOME SELF-CARE Condition: Stable Instructions (If sedation given, give patient instructions): Abdominal Pain ( ED) Additional Instructions: Please return to the Emergency Department if symptoms worsen or any other concerns. Is patient prescribed a controlled substance at d/c from ED?: No Referrals: Shaun Wang MD [Primary Care Provider] - 1-2 days Time of Disposition: 15:10
[2021-10-16 15:35] VITALS: BP 139/69; PULSE 50
== END 2021-10-16 15:38 | disposition home or self-care (01) ==
LOC: EC 11:59
DX: R10.9 Unspecified abdominal pain (principal); K21.9 Gastro-esophageal reflux disease without esophagitis; M19.90 Unspecified osteoarthritis, unspecified site; Z79.899 Other long term (current) drug therapy; Z98.890 Other specified postprocedural states
CPT/HCPCS: 36415; 80053; 82150; 83690; 85025; 81003; 74018; 74177; 99284; 96374; 96375; J2405; J1170; Q9967

== ENCOUNTER 2021-11-02 12:02 | Inpatient (IN) | payer MEDICARE, OTHER ==
[2021-11-02] MEDS ORDERED: PANTOPRAZOLE 40 MG/10 ML VIAL IVP STA (12:57)
[2021-11-02] MEDS ORDERED: SODIUM CHLORIDE 0.9% 1,000 ML IV STA (12:57)
[2021-11-02] MEDS ORDERED: HYDROmorphone 1 MG/ML 1 ML SYRINGE IVP STA (12:57)
--- NOTE | 2021-11-02 12:59 | ED ---
General Adult HPI - General Chief complaint: Abdominal Pain Stated complaint: abd pain Time Seen by Provider: 11/02/21 12:45 Source: patient, RN notes reviewed Mode of arrival: ambulatory Limitations: no limitations - History of Present Illness Initial comments: Patient is a pleasant [age]-year-old male presenting to the emergency department with concerns with abdominal discomfort. Onset of symptoms was yesterday around 3. Patient believes he ate bad raspberries. Patient has had a few episodes of diarrhea. No nausea or vomiting. Patient does have mid abdominal discomfort, moderate. Patient does have history of similar symptoms previously associated with bowel obstruction however with that he did not have diarrhea. No fevers. Patient was seen at [facility] yesterday however they did not do a CAT scan. - Related Data Home Medications Medication Instructions Recorded Confirmed oxyCODONE-APAP 10-325MG [Percocet 1 tab PO QID PRN 05/31/14 11/02/21 10-325 mg] carisoprodoL [Soma] 350 mg PO QID PRN 07/04/16 11/02/21 Multivitamin [Men's Multi-Vitamin] 1 tab PO DAILY 10/14/16 11/02/21 Cetirizine HCl [Zyrtec] 10 mg PO BID PRN 01/15/18 11/02/21 Dutasteride [Avodart] 0.5 mg PO HS 03/16/20 11/02/21 Iron Tab 27 mg PO DAILY 03/16/20 11/02/21 Pantoprazole Sodium [Protonix] 40 mg PO DAILY 03/16/20 11/02/21 Tamsulosin [Flomax] 0.8 mg PO HS 03/29/20 11/02/21 tadalafiL [Cialis] 5 mg PO DAILY PRN 03/29/20 11/02/21 Zolpidem [Ambien] 10 mg PO HS PRN 11/19/20 11/02/21 Cyanocobalamin (Vitamin B-12) 1,000 mcg PO DAILY 01/04/21 11/02/21 [Vitamin B-12] Naproxen 500 mg PO BID PRN 01/04/21 11/02/21 amLODIPine [Norvasc] 5 mg PO DAILY 01/04/21 11/02/21 Meloxicam [Mobic] 7.5 - 15 mg PO DAILY PRN 07/31/21 11/02/21 Previous Rx's Medication Instructions Recorded Acetaminophen Tab [Tylenol] 1,000 mg PO Q6HR PRN #30 tablet 10/30/20 Allergies Allergy/AdvReac Type Severity Reaction Status Date / Time No Known Allergies Allergy Verified 11/02/21 14:48 Review of Systems ROS Statement: Those systems with pertinent positive or pertinent negative responses have been documented in the HPI. ROS Other: All systems not noted in ROS Statement are negative. Constitutional: Denies: fever Eyes: Denies: eye pain ENT: Denies: ear pain Respiratory: Denies: cough Cardiovascular: Denies: chest pain Endocrine: Denies: fatigue Gastrointestinal: Reports: as per HPI, abdominal pain, diarrhea. Denies: nausea, vomiting Genitourinary: Denies: dysuria Musculoskeletal: Denies: back pain Skin: Denies: rash Neurological: Denies: weakness Past Medical History Past Medical History: GERD/Reflux, Hearing Disorder / Deafness, Osteoarthritis (OA), Prostate Disorder Additional Past Medical History / Comment(s): Deaf in right ear, BACK PAIN, DJD, enlarged prostate, bowel obstruction, colitis History of Any Multi-Drug Resistant Organisms: MRSA Date of last positivie culture/infection: 2014 MDRO Source:: nose Past Surgical History: Back Surgery, Bowel Resection, Hernia Repair, Joint Replacement, Orthopedic Surgery Additional Past Surgical History / Comment(s): Back surgery 03-22-20, right knee replacement, right hip replacement, left hip replacement X2, PAIN PROCEDURES, COLLARBONE REPAIRED, right inguinal repair., bowel resection Past Anesthesia/Blood Transfusion Reactions: No Reported Reaction Additional Past Anesthesia/Blood Transfusion Reaction / Comment(s): No hx blood transfusion. Past Psychological History: No Psychological Hx Reported Smoking Status: Never smoker Past Alcohol Use History: Occasional Past Drug Use History: None Reported - Past Family History Father Family Medical History: Congestive Heart Failure (CHF) Brother(s) Family Medical History: Deep Vein Thrombosis (DVT) General Exam Limitations: no limitations General appearance: alert, in no apparent distress Head exam: Present: normocephalic Eye exam: Present: normal appearance Neck exam: Present: normal inspection Respiratory exam: Present: normal lung sounds bilaterally Cardiovascular Exam: Present: regular rate, normal rhythm Expanded Peripheral pulses: 2+: Posterior Tibialis (R), Posterior Tibialis (L) GI/Abdominal exam: Present: soft, tenderness (Mild diffuse), hyperactive bowel sounds. Absent: distended, guarding, rebound, rigid, pulsatile mass Extremities exam: Present: normal inspection Neurological exam: Present: alert Psychiatric exam: Present: normal affect, normal mood Skin exam: Present: normal color Course Vital Signs 11/02/21 12:30 Temperature 98 F Pulse Rate 55 L Respiratory 20 Rate Blood Pressure 151/90 O2 Sat by Pulse 98 Oximetry Medical Decision Making - Medical Decision Making Patient reevaluated and updated. Case discussed with Dr. Ruiz who will admit covering Dr. Wang. Dr. Cantor consult. - Lab Data Result diagrams: 11/02/21 13:47 11/02/21 13:47 Lab Results 11/02/21 11/02/21 11/02/21 Range/Units 13:47 13:47 13:47 WBC 5.3 (3.8-10.6) k/uL RBC 4.70 (4.30-5.90) m/uL Hgb 12.7 L (13.0-17.5) gm/dL Hct 41.1 (39.0-53.0) % MCV 87.4 (80.0-100.0) fL MCH 27.1 (25.0-35.0) pg MCHC 31.0 (31.0-37.0) g/dL RDW 15.7 H (11.5-15.5) % Plt Count 143 L (150-450) k/uL MPV 9.2 Neutrophils % 67 % Lymphocytes % 24 % Monocytes % 6 % Eosinophils % 2 % Basophils % 0 % Neutrophils # 3.5 (1.3-7.7) k/uL Lymphocytes # 1.3 (1.0-4.8) k/uL Monocytes # 0.3 (0-1.0) k/uL Eosinophils # 0.1 (0-0.7) k/uL Basophils # 0.0 (0-0.2) k/uL Hypochromasia Slight PT 10.7 (9.0-12.0) sec INR 1.0 (<1.2) APTT 27.1 (22.0-30.0) sec Sodium 138 (137-145) mmol/L Potassium 4.9 (3.5-5.1) mmol/L Chloride 106 (98-107) mmol/L Carbon Dioxide 26 (22-30) mmol/L Anion Gap 6 mmol/L BUN 21 H (9-20) mg/dL Creatinine 1.09 (0.66-1.25) mg/dL Est GFR (CKD-EPI)AfAm 82 (>60 ml/min/1.73 sqM) Est GFR (CKD-EPI)NonAf 71 (>60 ml/min/1.73 sqM) Glucose 109 H (74-99) mg/dL Calcium 8.3 L (8.4-10.2) mg/dL Total Bilirubin 0.6 (0.2-1.3) mg/dL AST 36 (17-59) U/L ALT 25 (4-49) U/L Alkaline Phosphatase 112 (38-126) U/L Total Protein 6.4 (6.3-8.2) g/dL Albumin 3.8 (3.5-5.0) g/dL Amylase 80 (30-110) U/L Lipase 305 H (23-300) U/L - Radiology Data Radiology results: report reviewed (Computed tomography scan concerning for complete or partial bowel obstruction) Disposition Clinical Impression: Bowel obstruction Disposition: ADMITTED IP TO THIS HOSP Is patient prescribed a controlled substance at d/c from ED?: No Referrals: Shaun Wang MD [Primary Care Provider] - 1-2 days Time of Disposition: 15:48
[2021-11-02 13:51] LABS: Basophils % (A) 0 %; Eosinophils # (A) 0.1 k/uL (0-0.7); Eosinophils % (A) 2 %; HCT 41.1 % (39.0-53.0); HGB 12.7 gm/dL (13.0-17.5); Hypochromasia Slight; Lymphocytes # (A) 1.3 k/uL (1.0-4.8); Lymphocytes % (A) 24 %; MCH 27.1 pg (25.0-35.0); MCV 87.4 fL (80.0-100.0); Mean Platelet Volume 9.2; Monocytes # (A) 0.3 k/uL (0-1.0); Monocytes % (A) 6 %; Neutrophils # (A) 3.5 k/uL (1.3-7.7); Neutrophils % (A) 67 %; Platelet Count 143 k/uL (150-450); RDW 15.7 % (11.5-15.5); WBC 5.3 k/uL (3.8-10.6)
[2021-11-02 14:01] LABS: Albumin 3.8 g/dL (3.5-5.0); Calcium 8.3 mg/dL (8.4-10.2); Partial Thromboplastin Time 27.1 sec (22.0-30.0); Prothrombin Time 10.7 sec (9.0-12.0); Total Bilirubin 0.6 mg/dL (0.2-1.3); Total Protein 6.4 g/dL (6.3-8.2)
[2021-11-02 14:19] LABS: Potassium 4.9 mmol/L (3.5-5.1)
--- NOTE | 2021-11-02 15:05 | CT ---
EXAMINATION TYPE: CT abdomen pelvis w con DATE OF EXAM: 11/02/2021 COMPARISON: 10/16/2021 HISTORY: abdominal pain, recent SBO CT DLP: 1551.5 mGycm CONTRAST: CT scan of the abdomen and pelvis is performed without Oral Contrast and with IV Contrast, patient in jected with 100 mL of Isovue 300. FINDINGS: LUNG BASES-: No visible nodule. No infiltrate. LIVER/GB: No calcified gallstones. No space occupying hepatic lesion. Biliary tree is of normal ca liber. PANCREAS: No inflammation. No distinct mass. SPLEEN: No splenic enlargement. No lesion seen. ADRENALS: No nodule. No thickening. KIDNEYS/BLADDER: No hydronephrosis. No nephrolithiasis. Simple cyst left kidney. Urinary bladder gr ossly unremarkable. BOWEL: Postsurgical changes of right hemicolon and cecal region. The appendix is not clearly visualiz ed. There are multiple dilated loops of small bowel measuring up to 4.1 cm. Air and fecal debris are seen within the colon. The findings may reflect early complete distal small bowel obstruction versus partial obstruction. Correlate clinically and progress studies are advised. No evidence for free air or abscess. GENITAL ORGANS: No gross abnormality. LYMPH NODES: No greater than 1cm abdominal or pelvic lymph nodes are appreciated. AORTA: No significant abnormality. OSSEOUS STRUCTURES: Postoperative changes lumbar spine. OTHER: No significant additional abnormality is seen. IMPRESSION: 1. Findings felt to reflect early complete versus partial distal small bowel obstruction. Progress st udies are advised.
[2021-11-02] MEDS ORDERED: ONDANSETRON 4 MG/2 ML VIAL IVP PRN (15:49)
[2021-11-02] MEDS ORDERED: HYDROmorphone 0.5 MG/0.5 ML SYRINGE IVP PRN (15:49)
[2021-11-02] MEDS ORDERED: NALOXONE 0.4 MG/ML 1 ML VIAL IV PRN (15:49)
[2021-11-02] MEDS: SODIUM CHLORIDE 0.9% 1,000 ML IV SCH ×2 (16:04→19:39)
[2021-11-02] MEDS: HYDROmorphone 1 MG/ML 1 ML SYRINGE IVP PRN ×3 (16:05→22:52)
[2021-11-02] MEDS ORDERED: MELATONIN 5 MG TABLET PO SCH (21:00)
[2021-11-03] MEDS: HYDROmorphone 1 MG/ML 1 ML SYRINGE IVP PRN ×2 (04:17→10:19)
[2021-11-03 05:33] VITALS: TEMP 97.8
[2021-11-03 08:14] VITALS: BP 114/70; PULSE 68; RESP 18
[2021-11-03] MEDS ORDERED: PANTOPRAZOLE 40 MG/10 ML VIAL IV SCH (09:00)
[2021-11-03 13:17] LABS: African American GFR (CKD) 79 (>60 ml/min/1.73 sqM); Anion Gap 5 mmol/L; Blood Urea Nitrogen 15 mg/dL (9-20); Calcium 8.3 mg/dL (8.4-10.2); Carbon Dioxide 25 mmol/L (22-30); Chloride 107 mmol/L (98-107); Glucose 85 mg/dL (74-99); Non-African American GFR(CKD) 68 (>60 ml/min/1.73 sqM); Potassium 4.3 mmol/L (3.5-5.1); Sodium 137 mmol/L (137-145)
--- NOTE | 2021-11-03 13:44 | P.GSCN ---
History of Present Illness Consult date: 11/03/21 History of present illness: CHIEF COMPLAINT: Small bowel obstruction HISTORY OF PRESENT ILLNESS: The patient is a 66 year old male well-known to me with history of chronic recurrent small bowel obstructions from one year ago. Patient had lysis of adhesion adhesions followed by small bowel resection for small bowel stricture now 1 year ago. He reports 2 weeks ago having acute onset abdominal pain and presented to the ER for which he was told everything was well. Patient had followed up with me in the office 2 to 3 weeks ago for which his abdominal pain had resolved. He reports 2 days ago developing acute onset generalized abdominal pain. He reports his abdomen was moderately distended. He returned back to the emergency room after going to [facility] 2 days ago. This morning, his abdominal pain is resolved. He is passing moderate flatus. He also had a bowel movement. He tolerated regular diet. is at bedside. His bowel obstruction resolved without nasogastric tube decompression. PAST MEDICAL HISTORY: See list and reviewed PAST SURGICAL HISTORY: See list and reviewed MEDICATIONS: See list and reviewed ALLERGIES: See list and reviewed SOCIAL HISTORY: See list and reviewed FAMILY HISTORY: See list and reviewed REVIEW OF ORGAN SYSTEMS: CONSTITUTIONAL: No fevers or chills. EYES: Denies any trouble with vision. Wears glasses. HEENT: No difficulties with hearing. No nosebleeds. No difficulty swallowing. RESPIRATORY: Denies pneumonia. Denies any troubles with breathing or dyspnea on exertion. CARDIOVASCULAR: Denies any chest pain, palpitations, or recent heart attacks. GASTROINTESTINAL: Had colonoscopy 2020. Recurrent small bowel obstructions. History of right inguinal hernia repair with bowel obstruction. GENITOURINARY: Denies any blood in urine or increased urinary frequency. NEUROLOGICAL: Denies any numbness or tingling along the distal extremities. No seizure disorders or headaches. MUSCULOSKELETAL: Has back pain, stiffness or joint arthritis. SKIN: No current skin cancer. No rash. PSYCHIATRIC: Denies current depression or suicidal thoughts. ENDOCRINE: Denies current thyroid disorders. Denies any blood sugar glucose intolerance. HEME/LYMPHATIC: Denies any lumps and bumps around the neck. No recent deep venous thrombosis. ALLERGY/IMMUNOLOGY: No immunoglobulin therapy. No immune deficiencies. BREAST: Denies current breast lumps, pain or nipple discharge. PHYSICAL EXAM: VITALS: Reviewed CONSTITUTIONAL: Well developed and in no acute distress. EYES: Conjuctivae without sclera icterus. Extraocular movements grossly intact. HEAD, EARS, NOSE, THROAT: Moist buccal mucosa. Head is atraumatic, normocephalic. Hears conversational speech. No nasal drainage. NECK: Supple. No JV distention. No thyroidomegaly. RESPIRATORY: Non-labored respirations and equal bilateral excursions. No gross wheezes. CARDIOVASCULAR: Regular rate and rhythm. Palpable 2+ radial pulses. ABDOMEN: Soft. No palpable incisional hernias. No peritonitis. Nontender. Nondistended. LYMPH: No neck lymphadenopathy. MUSCULOSKELETAL: Nail and fingers with good capillary refill. SKIN: Warm and well perfused with good skin turgor. NEUROLOGIC: Cranial nerves II through XII grossly intact.No focal or lateralizing signs. PSYCH: Appropriate affect. Alert and oriented to person, place and time. Dis plays appropriate insight. CLINCAL LABS: Reviewed. WBC normal 5.3 Hemoglobin 12.7, mild anemia. Creatinine 1.13 IMAGING: CT of the abdomen and pelvis and reviewed from 11/02/2021 with dilated small bowel. Stool within the colon identified. This is my independent interpretation. CT of the abdomen and pelvis September 2021 demonstrated a nonobstructive bowel gas pattern. This is my independent interpretation. CT report also reviewed. RADIOLOGY: Report reviewed CT of the abdomen and pelvis demonstrated presence of early bowel obstruction. ASSESSMENT: 1. Recurrent small bowel obstruction due to peritoneal adhesions, now resolved PLAN: 1. Clinically, patient is passing flatus, had a large bowel movement and tolerated regular diet. His symptoms have resolved. Stable for discharge. 2. Outpatient follow-up in 3-5 days described. 3. Extended discussion regarding etiology of bowel obstructions reviewed including recurrent intra-abdominal adhesions described. Conservative devin gement described and successful. Past Medical History Past Medical History: GERD/Reflux, Hearing Disorder / Deafness, Osteoarthritis (OA), Prostate Disorder Additional Past Medical History / Comment(s): Deaf in right ear, BACK PAIN, DJD, enlarged prostate, bowel obstruction, colitis History of Any Multi-Drug Resistant Organisms: MRSA Year Discovered:: 2014 MDRO Source:: nose Past Surgical History: Back Surgery, Bowel Resection, Hernia Repair, Joint Replacement, Orthopedic Surgery Additional Past Surgical History / Comment(s): Back surgery 2-3-21, right knee replacement, right hip replacement, left hip replacement X2, PAIN PROCEDURES, COLLARBONE REPAIRED, right inguinal repair., bowel resection Past Anesthesia/Blood Transfusion Reactions: No Reported Reaction Additional Past Anesthesia/Blood Transfusion Reaction / Comm: No hx blood transf usion. Past Psychological History: No Psychological Hx Reported Smoking Status: Never smoker Past Alcohol Use History: Occasional Additional Past Alcohol Use History / Comment(s): . Past Drug Use History: None Reported - Past Family History Father Family Medical History: Congestive Heart Failure (CHF) Brother(s) Family Medical History: Deep Vein Thrombosis (DVT) Medications and Allergies Home Medications Medication Instructions Recorded Confirmed Type oxyCODONE-APAP 10-325MG [Percocet 1 tab PO QID PRN 05/31/14 11/02/21 History 10-325 mg] carisoprodoL [Soma] 350 mg PO QID PRN 07/04/16 11/02/21 History Multivitamin [Men's Multi-Vitamin] 1 tab PO DAILY 10/14/16 11/02/21 History Cetirizine HCl [Zyrtec] 10 mg PO BID PRN 01/15/18 11/02/21 History Dutasteride [Avodart] 0.5 mg PO HS 03/16/20 11/02/21 History Iron Tab 27 mg PO DAILY 03/16/20 11/02/21 History Pantoprazole Sodium [Protonix] 40 mg PO DAILY 03/16/20 11/02/21 History Tamsulosin [Flomax] 0.8 mg PO HS 03/29/20 11/02/21 History tadalafiL [Cialis] 5 mg PO DAILY PRN 03/29/20 11/02/21 History Acetaminophen Tab [Tylenol] 1,000 mg PO Q6HR PRN #30 tablet 10/30/20 11/02/21 Rx Zolpidem [Ambien] 10 mg PO HS PRN 11/19/20 11/02/21 History Cyanocobalamin (Vitamin B-12) 1,000 mcg PO DAILY 01/04/21 11/02/21 History [Vitamin B-12] Naproxen 500 mg PO BID PRN 01/04/21 11/02/21 History amLODIPine [Norvasc] 5 mg PO DAILY 01/04/21 11/02/21 History Meloxicam [Mobic] 7.5 - 15 mg PO DAILY PRN 07/31/21 11/02/21 History Allergies Allergy/AdvReac Type Severity Reaction Status Date / Time No Known Allergies Allergy Verified 11/02/21 14:48 Surgical - Exam Vital Signs Temp Pulse Resp BP Pulse Ox 98 F 55 L 20 151/90 98 11/02/21 12:30 11/02/21 12:30 11/02/21 12:30 11/02/21 12:30 11/02/21 12:30 Results - Labs 11/02/21 13:47 11/03/21 12:49 Abnormal Lab Results - Last 24 Hours (Table) 11/02/21 11/02/21 11/03/21 Range/Units 13:47 13:47 12:49 Hgb 12.7 L (13.0-17.5) gm/dL RDW 15.7 H (11.5-15.5) % Plt Count 143 L (150-450) k/uL BUN 21 H (9-20) mg/dL Glucose 109 H (74-99) mg/dL Calcium 8.3 L 8.3 L (8.4-10.2) mg/dL Lipase 305 H (23-300) U/L Diabetes panel 11/02/21 11/03/21 Range/Units 13:47 12:49 Sodium 138 137 (137-145) mmol/L Potassium 4.9 4.3 (3.5-5.1) mmol/L Chloride 106 107 (98-107) mmol/L Carbon Dioxide 26 25 (22-30) mmol/L BUN 21 H 15 (9-20) mg/dL Creatinine 1.09 1.13 (0.66-1.25) mg/dL Glucose 109 H 85 (74-99) mg/dL Calcium 8.3 L 8.3 L (8.4-10.2) mg/dL AST 36 (17-59) U/L ALT 25 (4-49) U/L Alkaline Phosphatase 112 (38-126) U/L Total Protein 6.4 (6.3-8.2) g/dL Albumin 3.8 (3.5-5.0) g/dL Calcium panel 11/02/21 11/03/21 Range/Units 13:47 12:49 Calcium 8.3 L 8.3 L (8.4-10.2) mg/dL Albumin 3.8 (3.5-5.0) g/dL Pituitary panel 11/02/21 11/03/21 Range/Units 13:47 12:49 Sodium 138 137 (137-145) mmol/L Potassium 4.9 4.3 (3.5-5.1) mmol/L Chloride 106 107 (98-107) mmol/L Carbon Dioxide 26 25 (22-30) mmol/L BUN 21 H 15 (9-20) mg/dL Creatinine 1.09 1.13 (0.66-1.25) mg/dL Glucose 109 H 85 (74-99) mg/dL Calcium 8.3 L 8.3 L (8.4-10.2) mg/dL Adrenal panel 11/02/21 11/03/21 Range/Units 13:47 12:49 Sodium 138 137 (137-145) mmol/L Potassium 4.9 4.3 (3.5-5.1) mmol/L Chloride 106 107 (98-107) mmol/L Carbon Dioxide 26 25 (22-30) mmol/L BUN 21 H 15 (9-20) mg/dL Creatinine 1.09 1.13 (0.66-1.25) mg/dL Glucose 109 H 85 (74-99) mg/dL Calcium 8.3 L 8.3 L (8.4-10.2) mg/dL Total Bilirubin 0.6 (0.2-1.3) mg/dL AST 36 (17-59) U/L ALT 25 (4-49) U/L Alkaline Phosphatase 112 (38-126) U/L Total Protein 6.4 (6.3-8.2) g/dL Albumin 3.8 (3.5-5.0) g/dL
--- NOTE | 2021-11-03 13:56 | P.PN ---
Progress Note - Text Progress Note Date: 11/03/21 I contacted admitting hospitalist directly on behalf of the patient. Clinical improvement discussed. Agreeable with discharge with discharge instructions performed by me.
--- NOTE | 2021-11-03 13:56 | P.HPIM ---
History of Present Illness Chief Complaint: Abdominal pain 66-year-old male presenting to the emergency department with concerns with abdominal discomfort. Onset of symptoms was yesterday around 3. Patient believes he ate bad raspberries. Patient has had a few episodes of diarrhea. No nausea or vomiting. Patient does have mid abdominal discomfort, moderate. Patient does have history of similar symptoms previously associated with bowel o bstruction however with that he did not have diarrhea. No fevers. Patient was seen at [facility] yesterday however they did not do a CAT scan. Computed tomography scan concerning for complete or partial bowel obstruction Blood work reveals a WBC 5.3, hemoglobin 12.7 and platelet count of 143, sodium 138, potassium 4.9, BUN/creatinine of 21/1.09 and blood glucose of 109; amylase of 80 with lipase of 305 Patient is being admitted with partial bowel obstruction Review of Systems REVIEW OF SYSTEMS: CONSTITUTIONAL: No fever, no malaise, no fatigue. HEENT: No recent visual problems or hearing problems. Denied any sore throat. CARDIOVASCULAR: No chest pain, orthopnea, PND, no palpitations, no syncope. PULMONARY: No shortness of breath, no cough, no hemoptysis. GASTROINTESTINAL: abdominal pain. NEUROLOGICAL: No headaches, no weakness, no numbness. HEMATOLOGICAL: Denies any bleeding or petechiae. GENITOURINARY: Denies any burning micturition, frequency, or urgency. MUSCULOSKELETAL/RHEUMATOLOGICAL: Denies any joint pain, swelling, or any muscle pain. ENDOCRINE: Denies any polyuria or polydipsia. The rest of the 14-point review of systems is negative. Past Medical History Past Medical History: GERD/Reflux, Hearing Disorder / Deafness, Osteoarthritis (OA), Prostate Disorder Additional Past Medical History / Comment(s): Deaf in right ear, BACK PAIN, DJD, enlarged prostate, bowel obstruction, colitis History of Any Multi-Drug Resistant Organisms: MRSA Date of last positivie culture/infection: 2014 MDRO Source:: nose Past Surgical History: Back Surgery, Bowel Resection, Hernia Repair, Joint Replacement, Orthopedic Surgery Additional Past Surgical History / Comment(s): Back surgery 2-321, right knee replacement, right hip replacement, left hip replacement X2, PAIN PROCEDURES, COLLARBONE REPAIRED, right inguinal repair., bowel resection Past Anesthesia/Blood Transfusion Reactions: No Reported Reaction Additional Past Anesthesia/Blood Transfusion Reaction / Comment(s): No hx blood transfusion. Past Psychological History: No Psychological Hx Reported Smoking Status: Never smoker Past Alcohol Use History: Occasional Past Drug Use History: None Reported - Past Family History Father Family Medical History: Congestive Heart Failure (CHF) Brother(s) Family Medical History: Deep Vein Thrombosis (DVT) Medications and Allergies Home Medications Medication Instructions Recorded Confirmed Type oxyCODONE-APAP 10-325MG [Percocet 1 tab PO QID PRN 05/31/14 11/02/21 History 10-325 mg] carisoprodoL [Soma] 350 mg PO QID PRN 07/04/16 11/02/21 History Multivitamin [Men's Multi-Vitamin] 1 tab PO DAILY 10/14/16 11/02/21 History Cetirizine HCl [Zyrtec] 10 mg PO BID PRN 01/15/18 11/02/21 History Dutasteride [Avodart] 0.5 mg PO HS 03/16/20 11/02/21 History Iron Tab 27 mg PO DAILY 03/16/20 11/02/21 History Pantoprazole Sodium [Protonix] 40 mg PO DAILY 03/16/20 11/02/21 History Tamsulosin [Flomax] 0.8 mg PO HS 03/29/20 11/02/21 History tadalafiL [Cialis] 5 mg PO DAILY PRN 03/29/20 11/02/21 History Acetaminophen Tab [Tylenol] 1,000 mg PO Q6HR PRN #30 tablet 10/30/20 11/02/21 Rx Zolpidem [Ambien] 10 mg PO HS PRN 11/19/20 11/02/21 History Cyanocobalamin (Vitamin B-12) 1,000 mcg PO DAILY 01/04/21 11/02/21 History [Vitamin B-12] Naproxen 500 mg PO BID PRN 01/04/21 11/02/21 History amLODIPine [Norvasc] 5 mg PO DAILY 01/04/21 11/02/21 History Meloxicam [Mobic] 7.5 - 15 mg PO DAILY PRN 07/31/21 11/02/21 History Allergies Allergy/AdvReac Type Severity Reaction Status Date / Time No Known Allergies Allergy Verified 11/02/21 14:48 Physical Exam Vitals: Vital Signs Temp Pulse Resp BP Pulse Ox 11/02/21 12:30 98 F 55 L 20 151/90 98 Intake and Output 11/02/21 11/02/21 11/02/21 06:59 14:59 22:59 Other: Weight 104.326 kg General appearance: alert, in no apparent distress Head exam: Present: normocephalic Eye exam: Present: normal appearance Neck exam: Present: normal inspection Respiratory exam: Present: normal lung sounds bilaterally Cardiovascular Exam: Present: regular rate, normal rhythm Peripheral pulses: 2+: Posterior Tibialis (R), Posterior Tibialis (L) GI/Abdominal exam: Present: soft, tenderness (Mild diffuse), hyperactive bowel sounds. Absent: distended, guarding, rebound, rigid, pulsatile mass Extremities exam: Present: normal inspection Neurological exam: Present: alert Psychiatric exam: Present: normal affect, normal mood Skin exam: Present: normal color Results CBC & Chem 7: 11/02/21 13:47 11/03/21 12:49 Labs: Abnormal Lab Results - Last 24 Hours (Table) 11/02/21 11/02/21 Range/Units 13:47 13:47 Hgb 12.7 L (13.0-17.5) gm/dL RDW 15.7 H (11.5-15.5) % Plt Count 143 L (150-450) k/uL BUN 21 H (9-20) mg/dL Glucose 109 H (74-99) mg/dL Calcium 8.3 L (8.4-10.2) mg/dL Lipase 305 H (23-300) U/L Assessment and Plan Assessment: 1. Partial small bowel obstruction - Patient is being admitted for close monitoring; we will be placed on IV fluids and is kept nothing by mouth; we will monitor strict LÁZARO's - Monitor renal function and electrolytes - Hold oral scheduled medications with plans to switch to IV medications as needed - Consult surgery for further recommendations 2. Mild acute renal injury - Continue with IV fluid hydration as indicated above; we will monitor strict LÁZARO's, daily weights; monitor renal function and electrolytes; avoid nephrotoxins and hypotension 3. Hypertension; blood pressures currently soft; patient takes Norvasc 5 mg daily which will be placed on hold; monitor blood pressure closely and make recommendations accordingly 4. BPH/urinary retention; patient takes Flomax 0.8 mg daily which will be debby ria on hold to oral intake is established along with Avodart 0.5 mg daily at bedtime 5. Osteoarthritis; patient takes Percocet, Soma and meloxicam; we will place patient on IV Dilaudid and hold off on home regimen DVT prophylaxis; SCDs CODE STATUS; full code
--- NOTE | 2021-11-03 13:58 | P.DS ---
Providers Date of admission: 11/02/21 15:49 Expected date of discharge: 11/03/21 Attending physician: Den Bucio MD Consults: 11/02/21 15:49 Consult Physician Urgent Consulting Provider: Lizet Steele Consult Reason/Comments: Bowel obstruction Do you want consulting provider notified?: Yes Primary care physician: Shaun Wang [facility] Course: CHIEF COMPLAINT: Small bowel obstruction HISTORY OF PRESENT ILLNESS: The patient is a 66 year old male well-known to me with history of chronic recurrent small bowel obstructions from one year ago. Patient had lysis of adhesion adhesions followed by small bowel resection for small bowel stricture now 1 year ago. He reports 2 weeks ago having acute onset abdominal pain and presented to the ER for which he was told everything was well. Patient had followed up with me in the office 2 to 3 weeks ago for which his abdominal pain had resolved. He reports 2 days ago developing acute onset generalized abdominal pain. He reports his abdomen was moderately distended. He returned back to the emergency room after going to [facility] days ago. This morning, his abdominal pain is resolved. He is passing moderate flatus. He also had a bowel movement. He tolerated regular diet. is at bedside. His bowel obstruction resolved without nasogastric tube decompression. PAST MEDICAL HISTORY: See list and reviewed PAST SURGICAL HISTORY: See list and reviewed MEDICATIONS: See list and reviewed ALLERGIES: See list and reviewed SOCIAL HISTORY: See list and reviewed FAMILY HISTORY: See list and reviewed REVIEW OF ORGAN SYSTEMS: CONSTITUTIONAL: No fevers or chills. EYES: Denies any trouble with vision. Wears glasses. HEENT: No difficulties with hearing. No nosebleeds. No difficulty swallowing. RESPIRATORY: Denies pneumonia. Denies any troubles with breathing or dyspnea on exertion. CARDIOVASCULAR: Denies any chest pain, palpitations, or recent heart attacks. GASTROINTESTINAL: Had colonoscopy 2020. Recurrent small bowel obstructions. History of right inguinal hernia repair with bowel obstruction. GENITOURINARY: Denies any blood in urine or increased urinary frequency. NEUROLOGICAL: Denies any numbness or tingling along the distal extremities. No seizure disorders or headaches. MUSCULOSKELETAL: Has back pain, stiffness or joint arthritis. SKIN: No current skin cancer. No rash. PSYCHIATRIC: Denies current depression or suicidal thoughts. ENDOCRINE: Denies current thyroid disorders. Denies any blood sugar glucose intolerance. HEME/LYMPHATIC: Denies any lumps and bumps around the neck. No recent deep venous thrombosis. ALLERGY/IMMUNOLOGY: No immunoglobulin therapy. No immune deficiencies. BREAST: Denies current breast lumps, pain or nipple discharge. PHYSICAL EXAM: VITALS: Reviewed CONSTITUTIONAL: Well developed and in no acute distress. EYES: Conjuctivae without sclera icterus. Extraocular movements grossly intact. HEAD, EARS, NOSE, THROAT: Moist buccal mucosa. Head is atraumatic, normocephalic. Hears conversational speech. No nasal drainage. NECK: Supple. No JV distention. No thyroidomegaly. RESPIRATORY: Non-labored respirations and equal bilateral excursions. No gross wheezes. CARDIOVASCULAR: Regular rate and rhythm. Palpable 2+ radial pulses. ABDOMEN: Soft. No palpable incisional hernias. No peritonitis. Nontender. Nondistended. LYMPH: No neck lymphadenopathy. MUSCULOSKELETAL: Nail and fingers with good capillary refill. SKIN: Warm and well perfused with good skin turgor. NEUROLOGIC: Cranial nerves II through XII grossly intact.No focal or lateralizing signs. PSYCH: Appropriate affect. Alert and oriented to person, place and time. Displays appropriate insight. CLINCAL LABS: Reviewed. WBC normal 5.3 Hemoglobin 12.7, mild anemia. Creatinine 1.13 IMAGING: CT of the abdomen and pelvis and reviewed from 11/02/2021 with dilated small bowel. Stool within the colon identified. This is my independent interpretation. CT of the abdomen and pelvis September 2021 demonstrated a nonobstructive bowel gas pattern. This is my independent interpretation. CT report also reviewed. RADIOLOGY: Report reviewed CT of the abdomen and pelvis demonstrated presence of early bowel obstruction. ASSESSMENT: 1. Recurrent small bowel obstruction due to peritoneal adhesions, now resolved PLAN: 1. Clinically, patient is passing flatus, had a large bowel movement and tolerated regular diet. His symptoms have resolved. Stable for discharge. 2. Outpatient follow-up in 3-5 days described. 3. Extended discussion regarding etiology of bowel obstructions reviewed including recurrent intra-abdominal adhesions described. Conservative management described and successful. Addendum: Overall clinical improvement discussed with admitting hospitalist. Patient had clinically improved. Patient will follow up with adjusted diet as outpatient. All questions addressed with the patient. Patient Condition at Discharge: Good Plan - Discharge Summary Discharge Rx Participant: Yes New Discharge Prescriptions: Continue oxyCODONE-APAP 10-325MG [Percocet 10-325 mg] 1 tab PO QID PRN PRN Reason: Pain carisoprodoL [Soma] 350 mg PO QID PRN PRN Reason: Pain Multivitamin [Men's Multi-Vitamin] 1 tab PO DAILY Cetirizine HCl [Zyrtec] 10 mg PO BID PRN PRN Reason: Allergy Symptoms Dutasteride [Avodart] 0.5 mg PO HS Pantoprazole Sodium [Protonix] 40 mg PO DAILY Iron Tab 27 mg PO DAILY Tamsulosin [Flomax] 0.8 mg PO HS tadalafiL [Cialis] 5 mg PO DAILY PRN PRN Reason: E.D. Acetaminophen Tab [Tylenol] 1,000 mg PO Q6HR PRN #30 tablet PRN Reason: Pain Zolpidem [Ambien] 10 mg PO HS PRN PRN Reason: Insomnia Naproxen 500 mg PO BID PRN PRN Reason: Pain Cyanocobalamin (Vitamin B-12) [Vitamin B-12] 1,000 mcg PO DAILY amLODIPine [Norvasc] 5 mg PO DAILY Meloxicam [Mobic] 7.5 - 15 mg PO DAILY PRN PRN Reason: Pain Discharge Medication List oxyCODONE-APAP 10-325MG [Percocet 10-325 mg] 1 tab PO QID PRN 05/31/14 [History] carisoprodoL [Soma] 350 mg PO QID PRN 07/04/16 [History] Multivitamin [Men's Multi-Vitamin] 1 tab PO DAILY 10/14/16 [History] Cetirizine HCl [Zyrtec] 10 mg PO BID PRN 01/15/18 [History] Dutasteride [Avodart] 0.5 mg PO HS 03/16/20 [History] Iron Tab 27 mg PO DAILY 03/16/20 [History] Pantoprazole Sodium [Protonix] 40 mg PO DAILY 03/16/20 [History] Tamsulosin [Flomax] 0.8 mg PO HS 03/29/20 [History] tadalafiL [Cialis] 5 mg PO DAILY PRN 03/29/20 [History] Acetaminophen Tab [Tylenol] 1,000 mg PO Q6HR PRN #30 tablet 10/30/20 [Rx] Zolpidem [Ambien] 10 mg PO HS PRN 11/19/20 [History] Cyanocobalamin (Vitamin B-12) [Vitamin B-12] 1,000 mcg PO DAILY 01/04/21 [History] Naproxen 500 mg PO BID PRN 01/04/21 [History] amLODIPine [Norvasc] 5 mg PO DAILY 01/04/21 [History] Meloxicam [Mobic] 7.5 - 15 mg PO DAILY PRN 07/31/21 [History] Follow up Appointment(s)/Referral(s): Shaun Wang MD [Primary Care Provider] - 1-2 days Lizet Steele MD [STAFF PHYSICIAN] - 11/06/21 Patient Instructions/Handouts: Low Fiber Diet (ED), Bowel Obstruction (GEN) Activity/Diet/Wound Care/Special Instructions: Recommend low fiber diet for next 2 days until follow-up with surgeon. Discharge Disposition: HOME SELF-CARE
[2021-11-03] MEDS: SODIUM CHLORIDE 0.9% 1,000 ML IV SCH (14:59)
--- NOTE | 2021-11-03 15:03 | P.PN ---
Subjective Progress Note Date: 11/03/21 Principal diagnosis: Partial small bowel obstruction related to abdominal adhesions 66-year-old male presenting to the emergency department with concerns with abdominal discomfort. Onset of symptoms was yesterday around 3. Patient believes he ate bad raspberries. Patient has had a few episodes of diarrhea. No nausea or vomiting. Patient does have mid abdominal discomfort, moderate. Patient does have history of similar symptoms previously associated with bowel obstruction however with that he did not have diarrhea. No fevers. Patient was seen at [facility] yesterday however they did not do a CAT scan. Computed tomography scan concerning for complete or partial bowel obstruction Blood work reveals a WBC 5.3, hemoglobin 12.7 and platelet count of 143, sodium 138, potassium 4.9, BUN/creatinine of 21/1.09 and blood glucose of 109; amylase of 80 with lipase of 305 Patient is being admitted with partial bowel obstruction Patient is clinically improved and reports passing flatus; had a large bowel movement yesterday; has been placed on a diet and is tolerating well Patient has been evaluated by general surgery and is deemed stable for discharge with follow-up as an outpatient in 3-5 days Objective - Vital Signs Vital signs: Vital Signs Temp 97.8 F 11/03/21 07:00 Pulse 68 11/03/21 08:00 Resp 18 11/03/21 08:00 BP 114/70 11/03/21 07:00 Pulse Ox 100 11/03/21 07:00 FiO2 Intake & Output 11/02/21 11/03/21 11/03/21 18:59 06:59 18:59 Intake Total 240 Balance 240 Weight 104.326 kg Intake: Oral 240 Other: Voiding Method Toilet Toilet # Voids 2 - Exam CONSTITUTIONAL: Well developed and in no acute distress. EYES: Conjuctivae without sclera icterus. Extraocular movements grossly intact. HEAD, EARS, NOSE, THROAT: Moist buccal mucosa. Head is atraumatic, normocephalic. Hears conversational speech. No nasal drainage. NECK: Supple. No JV distention. No thyroidomegaly. RESPIRATORY: Non-labored respirations and equal bilateral excursions. No gross wheezes. CARDIOVASCULAR: Regular rate and rhythm. Palpable 2+ radial pulses. ABDOMEN: Soft. No palpable incisional hernias. No peritonitis. Nontender. Nondistended. LYMPH: No neck lymphadenopathy. MUSCULOSKELETAL: Nail and fingers with good capillary refill. SKIN: Warm and well perfused with good skin turgor. NEUROLOGIC: Cranial nerves II through XII grossly intact.No focal or lateralizing signs. PSYCH: Appropriate affect. Alert and oriented to person, place and time. Displays appropriate insight. - Labs CBC & Chem 7: 11/02/21 13:47 11/03/21 12:49 Labs: Abnormal Lab Results - Last 24 Hours (Table) 11/02/21 11/03/21 Range/Units 13:47 12:49 BUN 21 H (9-20) mg/dL Glucose 109 H (74-99) mg/dL Calcium 8.3 L 8.3 L (8.4-10.2) mg/dL Lipase 305 H (23-300) U/L Assessment and Plan Assessment: 1. Partial small bowel obstruction - Patient is being admitted for close monitoring; we will be placed on IV fluids and is kept nothing by mouth; we will monitor strict LÁZARO's - Monitor renal function and electrolytes - Hold oral scheduled medications with plans to switch to IV medications as needed - Consult surgery for further recommendations 2. Mild acute renal injury - Continue with IV fluid hydration as indicated above; we will monitor strict LÁZARO's, daily weights; monitor renal function and electrolytes; avoid nephrotoxins and hypotension 3. Hypertension; blood pressures currently soft; patient takes Norvasc 5 mg daily which will be placed on hold; monitor blood pressure closely and make all mmendations accordingly 4. BPH/urinary retention; patient takes Flomax 0.8 mg daily which will be placed on hold to oral intake is established along with Avodart 0.5 mg daily at bedtime 5. Osteoarthritis; patient takes Percocet, Soma and meloxicam; we will place patient on IV Dilaudid and hold off on home regimen DVT prophylaxis; SCDs CODE STATUS; full code
== END 2021-11-03 15:08 | disposition home or self-care (01) | DRG 389 ==
LOC: EC 12:02 → 6NMEDSUR 15:49
PROVIDERS: ADMIT Internal Medicine; ATTEND Internal Medicine
DX: K56.51 Intestinal adhesions [bands], with partial obstruction (principal); N17.9 Acute kidney failure, unspecified; H91.91 Unspecified hearing loss, right ear; I10 Essential (primary) hypertension; M19.90 Unspecified osteoarthritis, unspecified site; N40.1 Benign prostatic hyperplasia with lower urinary tract symptoms; R33.8 Other retention of urine; Z79.899 Other long term (current) drug therapy; Z82.49 Family history of ischemic heart disease and other diseases of the circulatory system; K21.9 Gastro-esophageal reflux disease without esophagitis; Z83.2 Family history of diseases of the blood and blood-forming organs and certain disorders involving the immune mechanism; Z90.49 Acquired absence of other specified parts of digestive tract; Z86.14 Personal history of Methicillin resistant Staphylococcus aureus infection; Z96.643 Presence of artificial hip joint, bilateral; Z96.651 Presence of right artificial knee joint
CPT/HCPCS: 36415; 74177; 80048; 80053; 82150; 83690; 83735; 85025; 85610; 85730; 96361; 96374; 96375; 96376; 99285

== ENCOUNTER 2021-11-16 08:24 | Day surgery (SDC) | payer MEDICARE, OTHER ==
[2021-11-15 09:34] VITALS: BMI 32.1
[~2021-11-16 08:24] MED LIST changes: -ACETAMINOPHEN TAB 500 MG TAB PO PRN; -GABAPENTIN 300 MG CAP PO PRN; +HYDROmorphone 0.5 MG/0.5 ML SYRINGE IVP PRN; +LACTATED RINGERS 1,000 ML IV SCH; -MELOXICAM 7.5 MG TAB PO PRN; +MIDAZOLAM 2 MG/2 ML VIAL IV PRN; -Pre Op ABX Message 1 EACH MISC MISCELLANE ONE; -TAMSULOSIN 0.4 MG CAP.ER.24H PO PRN
[2021-11-16] MEDS ORDERED: TAMSULOSIN 0.4 MG CAP.ER.24H PO STA (09:40)
[2021-11-16] MEDS ORDERED: ACETAMINOPHEN TAB 500 MG TAB PO STA (09:40)
[2021-11-16] MEDS ORDERED: MELOXICAM 7.5 MG TAB PO PRN (09:40)
[2021-11-16] MEDS ORDERED: GABAPENTIN 300 MG CAP PO STA (09:40)
[2021-11-16] MEDS ORDERED: HEPARIN SODIUM,PORCINE/PF 5,000 UNIT/0.5 ML SYRINGE SQ PRN (09:40)
--- NOTE | 2021-11-16 09:40 | P.GSHP ---
History of Present Illness H&P Date: 11/16/21 CHIEF COMPLAINT: History of intra-abdominal adhesions HISTORY OF PRESENT ILLNESS: The patient is a 66-year-old male who presents with history of intra-abdominal adhesions from multiple prior surgeries including increasing abdominal pain and recent bowel obstruction. Last presentation to the hospital over 2 weeks ago. He now presents for diagnostic laparoscopy including lysis of adhesions. PAST MEDICAL HISTORY: Please see list. PAST SURGICAL HISTORY: Please see list. MEDICATIONS: Please see list. ALLERGIES: Please see list. SOCIAL HISTORY: No illicit drug use FAMILY HISTORY: No reports of Crohn disease or ulcerative colitis. REVIEW OF ORGAN SYSTEMS: CONSTITUTIONAL: No reports of fevers or chills. GI: Denies any blood in stools or constipation. PHYSICAL EXAM: VITAL SIGNS: Stable GENERAL: Well-developed pleasant and in no acute distress. HEENT: No scleral icterus. Extraocular movements grossly intact. Moist buccal mucosa. NECK: Supple without lymphadenopathy. CHEST: Unlabored respirations. Equal bilateral excursions. CARDIOVASCULAR: Regular rate and rhythm. Distal 2+ pulses. ABDOMEN: Soft, diffuse abdominal tenderness. No peritonitis. MUSCULOSKELETAL: No clubbing, cyanosis, or edema. ASSESSMENT: 1. Diffuse abdominal pain. 2. History of multiple abdominal surgeries. 3. Intra-abdominal adhesions. PLAN: 1. Robotic lysis of adhesions were described in detail including risk of injury to the intestine, need for further surgery, and open technique. 2. DVT prophylaxis. 3. Antibiotic prophylaxis. 4. Patient's elevated risk due to recurrent bowel obstructions Past Medical History Past Medical History: GERD/Reflux, Hearing Disorder / Deafness, Osteoarthritis (OA), Prostate Disorder Additional Past Medical History / Comment(s): Deaf in right ear, BACK PAIN, DJD, enlarged prostate, bowel obstruction, colitis History of Any Multi-Drug Resistant Organisms: MRSA Date of last positivie culture/infection: 2014 MDRO Source:: nose Past Surgical History: Back Surgery, Bowel Resection, Hernia Repair, Joint Replacement, Orthopedic Surgery Additional Past Surgical History / Comment(s): Back surgery 2-3-21, right knee replacement, right hip replacement, left hip replacement X2, PAIN PROCEDURES, COLLARBONE REPAIRED, right inguinal repair., bowel resection Past Anesthesia/Blood Transfusion Reactions: No Reported Reaction Additional Past Anesthesia/Blood Transfusion Reaction / Comment(s): No hx blood transfusion. Smoking Status: Never smoker - Past Family History Father Family Medical History: Congestive Heart Failure (CHF) Brother(s) Family Medical History: Deep Vein Thrombosis (DVT) Medications and Allergies Home Medications Medication Instructions Recorded Confirmed Type oxyCODONE-APAP 10-325MG [Percocet 1 tab PO QID PRN 05/31/14 11/16/21 History 10-325 mg] carisoprodoL [Soma] 350 mg PO QID PRN 07/04/16 11/16/21 History Multivitamin [Men's Multi-Vitamin] 1 tab PO DAILY 10/14/16 11/16/21 History Cetirizine HCl [Zyrtec] 10 mg PO BID PRN 01/15/18 11/16/21 History Dutasteride [Avodart] 0.5 mg PO HS 03/16/20 11/16/21 History Iron Tab 27 mg PO DAILY 03/16/20 11/16/21 History Pantoprazole Sodium [Protonix] 40 mg PO DAILY 03/16/20 11/16/21 History Tamsulosin [Flomax] 0.8 mg PO HS 03/29/20 11/16/21 History tadalafiL [Cialis] 5 mg PO DAILY PRN 03/29/20 11/16/21 History Acetaminophen Tab [Tylenol] 1,000 mg PO Q6HR PRN #30 tablet 10/30/20 11/16/21 Rx Zolpidem [Ambien] 10 mg PO HS PRN 11/19/20 11/16/21 History Cyanocobalamin (Vitamin B-12) 1,000 mcg PO DAILY 01/04/21 11/16/21 History [Vitamin B-12] Naproxen 500 mg PO BID PRN 01/04/21 11/16/21 History amLODIPine [Norvasc] 5 mg PO DAILY 01/04/21 11/16/21 History Meloxicam [Mobic] 7.5 - 15 mg PO DAILY PRN 07/31/21 11/16/21 History Allergies Allergy/AdvReac Type Severity Reaction Status Date / Time No Known Allergies Allergy Verified 11/16/21 09:03 Surgical - Exam Vital Signs Temp Pulse Resp BP Pulse Ox 97.2 F L 89 18 167/80 97 11/16/21 08:53 11/16/21 08:53 11/16/21 08:53 11/16/21 08:53 11/16/21 08:53
[2021-11-16] MEDS ORDERED: HYDROmorphone (PF) 1 MG/ML ONE (11:12)
[2021-11-16] MEDS ORDERED: SUCCINYLCHOLINE CHLORIDE 200 MG/10 ML VIAL IV ONE (11:12)
[2021-11-16] MEDS ORDERED: KETOROLAC 15 MG/ML 1 ML VIAL ONE (11:12)
[2021-11-16] MEDS ORDERED: MIDAZOLAM 2 MG/2 ML VIAL ONE (11:12)
[2021-11-16] MEDS ORDERED: fentaNYL (PF) 50 MCG/ML 2 ML AMP ONE (11:12)
[2021-11-16] MEDS ORDERED: PROPOFOL 10 MG/ML 20 ML VIAL IV ONE (11:12)
[2021-11-16] MEDS ORDERED: LIDOCAINE 2% INJ 20 MG/ML (2 ML VIAL) ONE (11:12)
[2021-11-16] MEDS ORDERED: NEOSTIGMINE 1 MG/ML 10 ML VIAL ONE (11:12)
[2021-11-16] MEDS ORDERED: GLYCOPYRROLATE 0.2 MG/ML 2 ML VIAL ONE (11:12)
[2021-11-16] MEDS ORDERED: ROCURONIUM 10 MG/ML (5 ML VIAL) IV ONE (11:12)
[2021-11-16] MEDS ORDERED: LIDOCAINE 1%-EPI 1:100,000 20 ML VIAL SQ ONE (11:50)
[2021-11-16] MEDS ORDERED: LACTATED RINGERS 1,000 ML IV ONE ×2 (13:08)
[2021-11-16 13:30] VITALS: TEMP 97.1
--- NOTE | 2021-11-16 13:40 | P.OP ---
Date of Procedure: 11/16/21 Description of Procedure: SURGEON: LIZET STEELE MD PREOPERATIVE DIAGNOSES: 1. Recurrent small bowel obstruction due to intestinal adhesions 2. Chronic pain syndrome 3. History of multiple abdominal surgeries 4. Obstructive uropathy due to prostate disorder 5. Hypertensive heart disease 6. Gastroesophageal reflux disease POSTOPERATIVE DIAGNOSES: 1. Recurrent small bowel obstruction due to intestinal adhesions 2. Chronic pain syndrome 3. History of multiple abdominal surgeries 4. Obstructive uropathy due to prostate disorder 5. Hypertensive heart disease 6. Gastroesophageal reflux disease 7. Severe peritoneal adhesions greater omentum to the abdominal wall OPERATION: 1. Robotic-assisted da Shadia Xi laparoscopic extensive lysis of adhesions over 1 hr COMPLICATIONS: None. Anesthesia: GETA, local Estimated Blood Loss (ml): 5 Pathology: none sent Condition: stable Disposition: same day OPERATIVE FINDINGS: 1. Severe abdominal including intraloop adhesions 2. No bilateral inguinal hernias. 3. No incisional hernias INDICATIONS: The patient is a 66-year-old male who presents with recurrent small bowel obstruction due to peritoneal adhesions. Informed consent was obtained. Robotic assisted laparoscopic approach was described. Benefits and risks of the procedure including but not limited to bleeding, infection, injury to the small bowel was described. Informed consent was obtained. DESCRIPTION OF PROCEDURE: Patient was brought to the operating room, placed in supine position. After general induction, the abdomen had been prepped and draped in standard sterile fashion. The robotic da Shadia XI system was primed. After a timeout protocol was performed, the patient had been prepped and draped in standard sterile fashion. The robot was docked along the right lateral abdomen. The patient was repositioned in reverse Trendelenburg position of 7- degrees. A 5 mm 0 degrees laparoscopic trocar entry was performed along the left upper quadrant. The abdomen was insufflated to 15 mmHg pressure which he tolerated well. Diagnostic laparoscopy demonstrated severe intra-abdominal adhesions involving the midline including intraloop adhesions. The small bowel was unremarkable without evidence of dilation or suggestion of obstruction. No injury to the bowel, viscera or mesentery was identified. Next, three 8 mm robotic ports were placed along the upper abdomen. The camera 8-mm port was initially docked along the epigastrium. Please note that the ports were placed at least 8 cm away from the target anatomy. Instruments were interchanged using only 3 ports for a grasper, vessel sealer, and scissors with cautery. I had sat at the console. The camera was positioned along the epigastrium. Extensive lysis of adhesions over 1 hour was performed. Carefully the adhesions were taken down without injury to the small bowel using vessel sealer and cautery on scissors. Severe adhesions along the abdominal wall including small bowel as well as severe intraloop adhesions involving the previous ileocolectomy anastomosis with adhesional lysis performed. Hemostasis was excellent and abdomen was dry upon completion. Completion lysis of adhesions confirmed no recurrent inguinal or incisional hernias. The robot was undocked. All pneumoperitoneum and instruments were evacuated from the abdominal cavity. The incisions were reapproximated using 4-0 Monocryl in an interrupted subcuticular fashion. Please note along the trocar sites, local anesthetic was placed as a field block prior to insertion of all instruments. Liquid glue was applied to the skin. At the end of the procedure needle, sponge, and instrument count had been verified correct by the surgical garment inspector. The patient was transferred to postanesthesia care unit in stable condition. Plan - Discharge Summary Discharge Rx Participant: Yes New Discharge Prescriptions: Continue oxyCODONE-APAP 10-325MG [Percocet 10-325 mg] 1 tab PO QID PRN PRN Reason: Pain carisoprodoL [Soma] 350 mg PO QID PRN PRN Reason: Pain Multivitamin [Men's Multi-Vitamin] 1 tab PO DAILY Cetirizine HCl [Zyrtec] 10 mg PO BID PRN PRN Reason: Allergy Symptoms Dutasteride [Avodart] 0.5 mg PO HS Pantoprazole Sodium [Protonix] 40 mg PO DAILY Iron Tab 27 mg PO DAILY Tamsulosin [Flomax] 0.8 mg PO HS tadalafiL [Cialis] 5 mg PO DAILY PRN PRN Reason: E.D. Acetaminophen Tab [Tylenol] 1,000 mg PO Q6HR PRN #30 tablet PRN Reason: Pain Zolpidem [Ambien] 10 mg PO HS PRN PRN Reason: Insomnia Naproxen 500 mg PO BID PRN PRN Reason: Pain Cyanocobalamin (Vitamin B-12) [Vitamin B-12] 1,000 mcg PO DAILY amLODIPine [Norvasc] 5 mg PO DAILY Meloxicam [Mobic] 7.5 - 15 mg PO DAILY PRN PRN Reason: Pain Discharge Medication List oxyCODONE-APAP 10-325MG [Percocet 10-325 mg] 1 tab PO QID PRN 05/31/14 [History] carisoprodoL [Soma] 350 mg PO QID PRN 07/04/16 [History] Multivitamin [Men's Multi-Vitamin] 1 tab PO DAILY 10/14/16 [History] Cetirizine HCl [Zyrtec] 10 mg PO BID PRN 01/15/18 [History] Dutasteride [Avodart] 0.5 mg PO HS 03/16/20 [History] Iron Tab 27 mg PO DAILY 03/16/20 [History] Pantoprazole Sodium [Protonix] 40 mg PO DAILY 03/16/20 [History] Tamsulosin [Flomax] 0.8 mg PO HS 03/29/20 [History] tadalafiL [Cialis] 5 mg PO DAILY PRN 03/29/20 [History] Acetaminophen Tab [Tylenol] 1,000 mg PO Q6HR PRN #30 tablet 10/30/20 [Rx] Zolpidem [Ambien] 10 mg PO HS PRN 11/19/20 [History] Cyanocobalamin (Vitamin B-12) [Vitamin B-12] 1,000 mcg PO DAILY 01/04/21 [History] Naproxen 500 mg PO BID PRN 01/04/21 [History] amLODIPine [Norvasc] 5 mg PO DAILY 01/04/21 [History] Meloxicam [Mobic] 7.5 - 15 mg PO DAILY PRN 07/31/21 [History] Follow up Appointment(s)/Referral(s): Lizet Steele MD [STAFF PHYSICIAN] - 11/20/21 (TELEHEALTH) Patient Instructions/Handouts: Lysis of Abdominal Adhesions (GEN), *Surgery [facility] - Managing Your Pain After Surgery Without Opioids, Bowel Obstruction (DC) Activity/Diet/Wound Care/Special Instructions: No lifting over 10 pounds in 2 weeks until Nov 30. May shower. No bath tub soaks for two weeks until Nov 30. Diet as tolerated. Use Tylenol, simethicone and ibuprofen or Aleve scheduled for the next 24-48 hours for best pain relief. Use ice along incisions for today to prevent swelling. Discharge Disposition: HOME SELF-CARE
[2021-11-16 14:32] VITALS: RESP 18
[2021-11-16 15:36] VITALS: PULSE 55
[2021-11-16] MEDS ORDERED: ONDANSETRON 4 MG/2 ML VIAL ONE (15:37)
[2021-11-16] MEDS ORDERED: ONDANSETRON 4 MG/2 ML VIAL IVP ONE (15:38)
[2021-11-16 16:01] VITALS: BP 158/72
== END 2021-11-16 16:31 | disposition home or self-care (01) ==
LOC: OR 08:24
PROVIDERS: ATTEND Surgery Plastic and Reconstructive Surgery
DX: K56.50 Intestinal adhesions [bands], unspecified as to partial versus complete obstruction (principal); N40.1 Benign prostatic hyperplasia with lower urinary tract symptoms; N13.8 Other obstructive and reflux uropathy; K21.9 Gastro-esophageal reflux disease without esophagitis; I11.9 Hypertensive heart disease without heart failure; H91.91 Unspecified hearing loss, right ear; M19.90 Unspecified osteoarthritis, unspecified site; G89.4 Chronic pain syndrome; Z87.19 Personal history of other diseases of the digestive system; Z90.49 Acquired absence of other specified parts of digestive tract; Z96.651 Presence of right artificial knee joint; Z96.642 Presence of left artificial hip joint; Z98.890 Other specified postprocedural states; Z86.14 Personal history of Methicillin resistant Staphylococcus aureus infection; Z82.49 Family history of ischemic heart disease and other diseases of the circulatory system; Z97.2 Presence of dental prosthetic device (complete) (partial); Z79.899 Other long term (current) drug therapy
CPT/HCPCS: 44180; J2250; J0330; J1100; J2710; J0690; J2405; J3010; J1170 ×2; J1885; J2704; J1644; J2001

== ENCOUNTER 2021-11-25 18:04 | Inpatient (IN) | payer MEDICARE, OTHER ==
[2021-11-25] MEDS ORDERED: ONDANSETRON 4 MG/2 ML VIAL IVP STA (18:53)
[2021-11-25] MEDS ORDERED: SODIUM CHLORIDE 0.9% 1,000 ML IV STA ×3 (18:53→20:43)
[2021-11-25] MEDS ORDERED: PANTOPRAZOLE 40 MG/10 ML VIAL IVP STA (18:53)
[2021-11-25] MEDS ORDERED: MORPHINE SULFATE 4 MG/ML SYRINGE IV STA (18:53)
[2021-11-25 19:11] LABS: Basophils % (A) 0 %; Eosinophils # (A) 0.2 k/uL (0-0.7); Eosinophils % (A) 3 %; HCT 41.5 % (39.0-53.0); HGB 13.5 gm/dL (13.0-17.5); Lymphocytes % (A) 29 %; MCH 27.9 pg (25.0-35.0); MCHC 32.5 g/dL (31.0-37.0); MCV 85.8 fL (80.0-100.0); Mean Platelet Volume 9.2; Monocytes # (A) 0.4 k/uL (0-1.0); Monocytes % (A) 6 %; Neutrophils % (A) 59 %; Platelet Count 163 k/uL (150-450); RBC 4.84 m/uL (4.30-5.90); RDW 14.8 % (11.5-15.5); WBC 6.8 k/uL (3.8-10.6)
[2021-11-25 19:22] LABS: INR 1.2 (<1.2); Prothrombin Time 12.3 sec (9.0-12.0)
[2021-11-25 19:27] LABS: Albumin 4.3 g/dL (3.5-5.0); Potassium 3.9 mmol/L (3.5-5.1); Total Bilirubin 0.8 mg/dL (0.2-1.3); Total Protein 7.2 g/dL (6.3-8.2)
--- NOTE | 2021-11-25 19:31 | XR ---
EXAMINATION TYPE: XR chest 1V portable DATE OF EXAM: 11/25/2021 COMPARISON: 11/13/2020 HISTORY: Abdominal pain TECHNIQUE: FINDINGS: Heart and mediastinum are within normal limits. Lungs are clear. Diaphragm is normal. Bony thorax is intact. The pulmonary vascularity is normal. IMPRESSION: No active cardiopulmonary disease. There is clearing of the lower lobe pulmonary infiltra jefferson compared to old exam.
--- NOTE | 2021-11-25 20:35 | CT ---
EXAMINATION TYPE: CT abdomen pelvis w con DATE OF EXAM: 11/25/2021 COMPARISON: 11/02/2021 HISTORY: Post op abdomen pain CT DLP: 1452.2 mGycm Automated exposure control for dose reduction was used. CONTRAST: Performed with IV Contrast, patient injected with 80 mL of Isovue 370. Images obtained from the diaphragm to the floor the pelvis with the IV contrast. Lung bases are clear of consolidation. No pleural effusion. Heart size is normal. No pericardial effu martine. Liver is intact. Spleen is intact. No pancreatic mass. Gallbladder is intact. The bile ducts ar e not dilated. There is small pneumoperitoneum. There is no adrenal mass. Kidneys show satisfactory contrast opacification. No hydronephrosis. There is 2 cm cortical cyst lateral left kidney. Delayed images show normal renal excretion. There is 1 cm cortical cyst posterior right kidney. The ureters are not dilated. No retroperitoneal adenopathy. The re are multiple surgical clips in the right lower quadrant. There is bilateral hip prosthesis with me barb artifact. There are rods and screws fusing posteriorly the lower lumbar spine. There are multiple dilated fluid-filled small bowel loops in the midabdomen. These measure up to 4.5 cm. The distal sma ll bowel is not dilated. Transition point not seen. The lumbar vertebrae have normal alignment. There is mild narrowing of disc spaces at levels from L3 to S1. No compression fracture. The bony pelvis is intact. No ascites. IMPRESSION: Dilated small bowel suggestive of mechanical bowel obstruction. Transition point not seen. Small emery l dilation is worse than on exam of 11/02/2021. Small pneumoperitoneum consistent with recent abdomina l surgery.
--- NOTE | 2021-11-25 20:38 | US ---
EXAMINATION TYPE: US gallbladder DATE OF EXAM: 11/25/2021 COMPARISON: CT 2021, US 2019 CLINICAL HISTORY: epigastric abd pain. TECHNIQUE: Multiple sonographic images of the right upper quadrant are obtained. FINDINGS: EXAM MEASUREMENTS: Liver Length: 16.1 cm Gallbladder Wall: 0.2 cm CBD: 0.4 cm Right Kidney: 9.9 x 4.9 x 4.8 cm Pancreas: obscured by overlying midline bowel gas Liver: scanned intercostally, visualized portions appear wnl Gallbladder: borderline hydropic, no stones seen Evidence for sonographic Mac's sign: no CBD: wnl Right Kidney: visualized portions appear wnl, limited by overlying bowel gas IMPRESSION: No dilated ducts. No gallstones. Large gallbladder measuring 4.3 cm in diameter that could be gallbla dder dysfunction. Gallbladder increased compared to old exam.
[2021-11-25] MEDS ORDERED: ONDANSETRON 4 MG/2 ML VIAL IVP PRN (21:03)
[2021-11-25] MEDS ORDERED: NALOXONE 0.4 MG/ML 1 ML VIAL IV PRN (21:03)
--- NOTE | 2021-11-25 21:04 | ED ---
General Adult HPI - General Chief complaint: Abdominal Pain Stated complaint: Abd pain Time Seen by Provider: 11/25/21 18:26 Source: patient, RN notes reviewed, old records reviewed Mode of arrival: ambulatory Limitations: no limitations - History of Present Illness Initial comments: Patient is a 66-year-old male with past medical history remarkable for hypertension, multiple abdominal surgeries, who recently had lysis of adhesions done by a surgeon Dr. Steele 10 days ago presents emergency Department complaining of abdominal pain for the last 5 days. States symptoms started on Friday or . This As a Upper Abdominal Discomfort That He Describes As Sharp. More Or Less Constant. No Palliative or Provocative Factors. Denies Any Radiation. Denies any nausea or vomiting. He is tolerating clear liquid diet which she was prescribed. States he is still passing gas. Has had multiple bowel movements since the surgery, states it is primarily softer stools and last one was on Friday. Is currently Friday. Denies any urinary comp laints. Has no other acute complaints at this time. Presents for further evaluation at this time. - Related Data Home Medications Medication Instructions Recorded Confirmed oxyCODONE-APAP 10-325MG [Percocet 1 tab PO QID PRN 05/31/14 11/16/21 10-325 mg] carisoprodoL [Soma] 350 mg PO QID PRN 07/04/16 11/16/21 Multivitamin [Men's Multi-Vitamin] 1 tab PO DAILY 10/14/16 11/16/21 Cetirizine HCl [Zyrtec] 10 mg PO BID PRN 01/15/18 11/16/21 Dutasteride [Avodart] 0.5 mg PO HS 03/16/20 11/16/21 Iron Tab 27 mg PO DAILY 03/16/20 11/16/21 Pantoprazole Sodium [Protonix] 40 mg PO DAILY 03/16/20 11/16/21 Tamsulosin [Flomax] 0.8 mg PO HS 03/29/20 11/16/21 tadalafiL [Cialis] 5 mg PO DAILY PRN 03/29/20 11/16/21 Zolpidem [Ambien] 10 mg PO HS PRN 11/19/20 11/16/21 Cyanocobalamin (Vitamin B-12) 1,000 mcg PO DAILY 01/04/21 11/16/21 [Vitamin B-12] Naproxen 500 mg PO BID PRN 01/04/21 11/16/21 amLODIPine [Norvasc] 5 mg PO DAILY 01/04/21 11/16/21 Meloxicam [Mobic] 7.5 - 15 mg PO DAILY PRN 07/31/21 11/16/21 Previous Rx's Medication Instructions Recorded Acetaminophen Tab [Tylenol] 1,000 mg PO Q6HR PRN #30 tablet 10/30/20 Metoclopramide [Reglan] 10 mg PO ACHS #20 tab 11/21/21 Allergies Allergy/AdvReac Type Severity Reaction Status Date / Time No Known Allergies Allergy Verified 11/25/21 18:23 Review of Systems ROS Statement: Those systems with pertinent positive or pertinent negative responses have been documented in the HPI. Review of Systems: CONST: Denies fever EYES: Denies blurry vision ENT: Denies nasal congestion C/V: Denies Chest pain RESP: Denies shortness of breath GI: Endorses abdominal pain : Denies dysuria SKIN: Denies rash. MSK: Denies joint pain. NEURO: Denies headache ROS Other: All systems not noted in ROS Statement are negative. Past Medical History Past Medical History: GERD/Reflux, Hearing Disorder / Deafness, Osteoarthritis (OA), Prostate Disorder Additional Past Medical History / Comment(s): Deaf in right ear, BACK PAIN, DJD, enlarged prostate, bowel obstruction, colitis History of Any Multi-Drug Resistant Organisms: MRSA Date of last positivie culture/infection: 2014 MDRO Source:: nose Past Surgical History: Back Surgery, Bowel Resection, Hernia Repair, Joint Replacement, Orthopedic Surgery Additional Past Surgical History / Comment(s): Back surgery 2-05-07, right knee replacement, right hip replacement, left hip replacement X2, PAIN PROCEDURES, COLLARBONE REPAIRED, right inguinal repair., bowel resection Past Anesthesia/Blood Transfusion Reactions: No Reported Reaction Additional Past Anesthesia/Blood Transfusion Reaction / Comment(s): No hx blood transfusion. Past Psychological History: No Psychological Hx Reported Smoking Status: Never smoker - Past Family History Father Family Medical History: Congestive Heart Failure (CHF) Brother(s) Family Medical History: Deep Vein Thrombosis (DVT) General Exam - General Exam Comments Initial Comments: General: Appears in no acute distress. HEAD: Normal with no signs of head trauma. EYES: PERRLA, EOMI, conjunctiva normal, no discharge. ENT: Hearing grossly intact, normal oropharynx. RESPIRATORY: Clear breath sounds bilaterally. No wheezes, rales, or rhonchi. C/V: Regular rate and rhythm. S1 and S2 auscultated, no edema, peripheral pulses 2+ and intact throughout ABD: Abdomen is soft, nondistended. Tender to palpation in the periumbilical's based, epigastric soreness, and some left upper quadrant. No guarding. No rebound tenderness. No peritoneal signs. EXT: Normal range of motion, no obvious deformity SKIN: No rashes or lesions observed on exposed skin. NEURO: Alert and oriented 4. Limitations: no limitations Course Vital Signs 11/25/21 18:19 Temperature 97.9 F Pulse Rate 77 Respiratory 16 Rate Blood Pressure 143/85 O2 Sat by Pulse 100 Oximetry Medical Decision Making - Medical Decision Making Based on the patient's presentation and physical exam, I'm concerned for acute intrapelvic process for the patient. We'll obtain abdominal laboratory studies, screening EKG, as well as abdominal imaging. He was in agreement this plan. He was administered IV analgesia, as well as IV fluids and antiemetics. Screening EKG shows no signs of acute ischemia. Laboratory studies are remarkable for an elevated creatinine of 1.67, which is above his baseline. Appears to have an AK I. Remainder the labs are unremarkable. Please a normal lactic acid. Right upper quadrant ultrasound reveals an enlarged gallbladder but no obvious signs of cholecystitis. Chest x-ray reveals no acute cardiopulmonary process. Abdomen and pelvis CT is concerning for a small bowel obstruction as there is increased dilation. There is also a small amount of residual free air from his recent surgery. On reevaluation, patient's pain is improved with morphine. I did discuss with him the results of his CT imaging that he likely requires admission. He expressed understanding was in agreement this plan. Dr. Barraza is covering for Dr. Steele. I spoke with him regarding the patient, and he recommended making the patient nothing by mouth, fluid hydration, pain control, as well as admission under Dr. Steele. He was in agreement to hold off on NG tube at this time. Patient was therefore admitted in stable condition. - Lab Data Result diagrams: 11/25/21 18:53 11/25/21 18:53 Lab Results 11/25/21 11/25/21 11/25/21 Range/Units 18:53 18:53 18:53 WBC 6.8 (3.8-10.6) k/uL RBC 4.84 (4.30-5.90) m/uL Hgb 13.5 (13.0-17.5) gm/dL Hct 41.5 (39.0-53.0) % MCV 85.8 (80.0-100.0) fL MCH 27.9 (25.0-35.0) pg MCHC 32.5 (31.0-37.0) g/dL RDW 14.8 (11.5-15.5) % Plt Count 163 (150-450) k/uL MPV 9.2 Neutrophils % 59 % Lymphocytes % 29 % Monocytes % 6 % Eosinophils % 3 % Basophils % 0 % Neutrophils # 4.0 (1.3-7.7) k/uL Lymphocytes # 2.0 (1.0-4.8) k/uL Monocytes # 0.4 (0-1.0) k/uL Eosinophils # 0.2 (0-0.7) k/uL Basophils # 0.0 (0-0.2) k/uL PT 12.3 H (9.0-12.0) sec INR 1.2 H (<1.2) APTT 28.0 (22.0-30.0) sec Sodium 137 (137-145) mmol/L Potassium 3.9 (3.5-5.1) mmol/L Chloride 103 (98-107) mmol/L Carbon Dioxide 22 (22-30) mmol/L Anion Gap 12 mmol/L BUN 18 (9-20) mg/dL Creatinine 1.67 H (0.66-1.25) mg/dL Est GFR (CKD-EPI)AfAm 49 (>60 ml/min/1.73 sqM) Est GFR (CKD-EPI)NonAf 42 (>60 ml/min/1.73 sqM) Glucose 105 H (74-99) mg/dL Plasma Lactic Acid [place] (0.7-2.0) mmol/L Calcium 9.0 (8.4-10.2) mg/dL Total Bilirubin 0.8 (0.2-1.3) mg/dL AST 30 (17-59) U/L ALT 24 (4-49) U/L Alkaline Phosphatase 139 H (38-126) U/L Total Protein 7.2 (6.3-8.2) g/dL Albumin 4.3 (3.5-5.0) g/dL Amylase 47 (30-110) U/L Lipase 19 L (23-300) U/L 11/25/21 Range/Units 18:53 WBC (3.8-10.6) k/uL RBC (4.30-5.90) m/uL Hgb (13.0-17.5) gm/dL Hct (39.0-53.0) % MCV (80.0-100.0) fL MCH (25.0-35.0) pg MCHC (31.0-37.0) g/dL RDW (11.5-15.5) % Plt Count (150-450) k/uL MPV Neutrophils % % Lymphocytes % % Monocytes % % Eosinophils % % Basophils % % Neutrophils # (1.3-7.7) k/uL Lymphocytes # (1.0-4.8) k/uL Monocytes # (0-1.0) k/uL Eosinophils # (0-0.7) k/uL Basophils # (0-0.2) k/uL PT (9.0-12.0) sec INR (<1.2) APTT (22.0-30.0) sec Sodium (137-145) mmol/L Potassium (3.5-5.1) mmol/L Chloride (98-107) mmol/L Carbon Dioxide (22-30) mmol/L Anion Gap mmol/L BUN (9-20) mg/dL Creatinine (0.66-1.25) mg/dL Est GFR (CKD-EPI)AfAm (>60 ml/min/1.73 sqM) Est GFR (CKD-EPI)NonAf (>60 ml/min/1.73 sqM) Glucose (74-99) mg/dL Plasma Lactic Acid [place] 0.9 (0.7-2.0) mmol/L Calcium (8.4-10.2) mg/dL Total Bilirubin (0.2-1.3) mg/dL AST (17-59) U/L ALT (4-49) U/L Alkaline Phosphatase (38-126) U/L Total Protein (6.3-8.2) g/dL Albumin (3.5-5.0) g/dL Amylase (30-110) U/L Lipase (23-300) U/L Disposition Clinical Impression: Small bowel obstruction, MEMO (acute kidney injury) Disposition: ADMITTED IP TO THIS HOSP Condition: Stable Referrals: Shaun Wang MD [Primary Care Provider] - 1-2 days Time of Disposition: 18:45
[2021-11-25] MEDS: MORPHINE SULFATE 4 MG/ML SYRINGE IVP PRN (22:25)
[2021-11-25 22:42] LABS: Appearance,Urine Clear (Clear); Bilirubin,Urine Negative (Negative); Blood,Urine Negative (Negative); Color,Urine Yellow; Glucose,Urine (UA) Negative (Negative); Ketones,Urine 1+ (Negative); Leukocyte Esterase,Urine Negative (Negative); Nitrite,Urine Negative (Negative); Protein,Urine Trace (Negative); Urobilinogen,Urine <2.0 mg/dL (<2.0)
[2021-11-25 22:43] LABS: Specific Gravity,Urine >1.050 (1.001-1.035)
[2021-11-26] MEDS: PIPERACILLIN-TAZOBACTAM 3.375 GM in SODIUM CHLORIDE 0.9% 100 ML IVPB SCH ×4 (00:42→23:06)
[2021-11-26] MEDS: HEPARIN SODIUM,PORCINE/PF 5,000 UNIT/0.5 ML SYRINGE SQ SCH ×3 (01:02→15:59)
[2021-11-26] MEDS: MORPHINE SULFATE 4 MG/ML SYRINGE IVP PRN ×5 (02:30→23:15)
[2021-11-26 05:41] LABS: Basophils % (A) 0 %; Eosinophils # (A) 0.2 k/uL (0-0.7); Eosinophils % (A) 4 %; HCT 37.5 % (39.0-53.0); HGB 12.2 gm/dL (13.0-17.5); Hypochromasia Slight; Lymphocytes # (A) 1.5 k/uL (1.0-4.8); Lymphocytes % (A) 33 %; MCH 28.4 pg (25.0-35.0); MCHC 32.4 g/dL (31.0-37.0); MCV 87.7 fL (80.0-100.0); Mean Platelet Volume 8.9; Monocytes # (A) 0.4 k/uL (0-1.0); Monocytes % (A) 8 %; Neutrophils # (A) 2.3 k/uL (1.3-7.7); Neutrophils % (A) 51 %; Platelet Count 138 k/uL (150-450); RBC 4.28 m/uL (4.30-5.90); RDW 14.9 % (11.5-15.5); WBC 4.5 k/uL (3.8-10.6)
[2021-11-26 06:02] LABS: Calcium 8.3 mg/dL (8.4-10.2); Potassium 3.8 mmol/L (3.5-5.1)
[2021-11-26] MEDS: amLODIPine 5 MG TAB PO SCH (08:52)
[2021-11-26] MEDS ORDERED: bisacodyL 10 MG SUPP RECTAL STA (11:11)
--- NOTE | 2021-11-26 13:35 | P.GSHP ---
History of Present Illness H&P Date: 11/26/21 CHIEF COMPLAINT: Abdominal pain HISTORY OF PRESENT ILLNESS: This is a 66-year-old male who presented to the hospital with complaints of upper abdominal pain with nausea. Patient reports that he's had abdominal pain for about 5 days. Symptoms did start after eating chili. Patient reports after surgery he was having bowel movements and then his last bowel movement was Friday 3 days ago. However, he is still having flatus. He does have some abdominal distention. Denies any vomiting. He did have recent surgery on 11/16/2021 for lysis of adhesions for recurrent small bowel obstruction. Patient has a known history of prior bowel obstructions requiring lysis of adhesions, right inguinal hernia repair and bowel resection for a prior bowel obstruction. Patient denies any fever chills or sweats. Patient did have evidence of an enlarged gallbladder. Per Dr. Steele CAT scan findings were more of an ileus picture. PAST MEDICAL HISTORY: See list. PAST SURGICAL HISTORY: See list. MEDICATIONS: See list. ALLERGIES: See list. SOCIAL HISTORY: No illicit drug use. REVIEW OF SYSTEMS: CONSTITUTIONAL: Denies fever or chills. HEENT: Denies blurred vision, vision changes, or eye pain. Denies hemoptysis ENDOCRINE: Denies heat or cold intolerance. CARDIOVASCULAR: Denies chest pain or pressure. RESPIRATORY: No shortness of breath. GASTROINTESTINAL: Denies abdominal pain. Denies nausea or vomiting. NEURO: Denies history of seizures. PSYCH: No depression or suicidal ideation HEMATOLOGIC: Denies bleeding disorders. LYMPHATIC: The patient denies any lumps and bumps around the neck. GENITOURINARY: Denies any blood in urine or increased urinary frequency. MUSCULOSKELETAL: Denies myalgias. Denies joint swelling. Denies decreased range of motion beyond patients baseline. SKIN: Denies pruitis. Denies rash. PHYSICAL EXAM: VITAL SIGNS: Reviewed GENERAL: Well-developed in no acute distress. HEENT: No sclera icterus. Extraocular movements grossly intact. Moist buccal mucosa. Head is atraumatic, normocephalic. Hears conversational speech. No nasal drainage. NECK: Supple without lymphadenopathy. CHEST: Non-labored respirations and equal bilateral excursions. CARDIOVASCULAR: Palpable 2+ radial pulses. ABDOMEN: Soft. Distended. Upper mid abdominal tenderness MUSCULOSKELETAL: No clubbing or cyanosis. NEUROLOGIC: No focal or lateralizing signs. Cranial nerves II through XII grossly intact. PSYCH: Appropriate affect. Alert and oriented to person, place and time. SKIN: Well perfused. Good skin turgor. LABORATORY DATA: WBC is 4.5 HGB 12.2 platelets 138 Sodium is 138 potassium 3.8 creatinine 1.67 down to 1.41 Lactic acid 0.9 LFTs and total bilirubin normal alk phos 139 lipase 19 Urinalysis negative for infection IMAGING: Computed tomography scan abdomen and pelvis dilated small bowel suggestive of mechanical bowel obstruction. Transition point not seen. Small bowel dilation is worse than on exam of 11/02/2021. Small pneumoperitoneum consistent with recent abdominal surgery Gallbladder ultrasound no dilated ducts. No gallstones. Large gallbladder measuring 4.3 cm in diameter that could be gallbladder dysfunction. Gallbladder increased compared to old exam. Chest x-ray no active cardiopulmonary disease. There is clearing of the lower lobe pulmonary infiltrate compared to old exam EKG sinus bradycardia with first-degree AV block. Heart rate 55 ASSESSMENT: 1. Abdominal pain 2. Enlarged gallbladder. Concerns for possible acute cholecystitis versus gallbladder dysfunction 3. Ileus 4. History of bowel obstructions 5. History of multiple abdominal surgeries 6. Most recent abdominal surgery 11/16/2021 with lysis of adhesions for recurrent bowel obstruction 7. Acute kidney injury likely due to dehydration PLAN: -Ordered a HIDA scan with EF to evaluate for cholecystitis and gallbladder dysfunction -Keep patient nothing by mouth until HIDA exam completed -Continue IV antibiotics -Continue IV fluid -Continue pain medication as needed -Continue antiemetics as -We'll give a Dulcolax suppository to help simulate bowel movement -DVT prophylaxis subcu heparin Physician [employer]ality [employer] Supervisor note has been reviewed by physician. Signing provider agrees with the documented findings, assessment, and plan of care. Past Medical History Past Medical History: GERD/Reflux, Hearing Disorder / Deafness, Osteoarthritis (OA), Prostate Disorder Additional Past Medical History / Comment(s): Deaf in right ear, BACK PAIN, DJD, enlarged prostate, bowel obstruction, colitis History of Any Multi-Drug Resistant Organisms: MRSA Date of last positivie culture/infection: 2014 MDRO Source:: nose Past Surgical History: Back Surgery, Bowel Resection, Hernia Repair, Joint Replacement, Orthopedic Surgery Additional Past Surgical History / Comment(s): Back surgery 2-3-21, right knee replacement, right hip replacement, left hip replacement X2, PAIN PROCEDURES, COLLARBONE REPAIRED, right inguinal repair., bowel resection Past Anesthesia/Blood Transfusion Reactions: No Reported Reaction Additional Past Anesthesia/Blood Transfusion Reaction / Comment(s): No hx blood transfusion. Past Psychological History: No Psychological Hx Reported Smoking Status: Never smoker - Past Family History Father Family Medical History: Congestive Heart Failure (CHF) Brother(s) Family Medical History: Deep Vein Thrombosis (DVT) Medications and Allergies Home Medications Medication Instructions Recorded Confirmed Type oxyCODONE-APAP 10-325MG [Percocet 1 tab PO QID PRN 05/31/14 11/25/21 History 10-325 mg] carisoprodoL [Soma] 350 mg PO QID PRN 07/04/16 11/25/21 History Multivitamin [Men's Multi-Vitamin] 1 tab PO DAILY 10/14/16 11/25/21 History Cetirizine HCl [Zyrtec] 10 mg PO BID PRN 01/15/18 11/25/21 History Dutasteride [Avodart] 0.5 mg PO HS 03/16/20 11/25/21 History Iron Tab 27 mg PO DAILY 03/16/20 11/25/21 History Pantoprazole Sodium [Protonix] 40 mg PO DAILY 03/16/20 11/25/21 History Tamsulosin [Flomax] 0.8 mg PO HS 03/29/20 11/25/21 History tadalafiL [Cialis] 5 mg PO DAILY PRN 03/29/20 11/25/21 History Acetaminophen Tab [Tylenol] 1,000 mg PO Q6HR PRN #30 tablet 10/30/20 11/25/21 Rx Zolpidem [Ambien] 10 mg PO HS PRN 11/19/20 11/25/21 History Cyanocobalamin (Vitamin B-12) 1,000 mcg PO DAILY 01/04/21 11/25/21 History [Vitamin B-12] Naproxen 500 mg PO BID PRN 01/04/21 11/25/21 History amLODIPine [Norvasc] 5 mg PO DAILY 01/04/21 11/25/21 History Meloxicam [Mobic] 7.5 - 15 mg PO DAILY PRN 07/31/21 11/25/21 History Metoclopramide [Reglan] 10 mg PO ACHS #20 tab 11/21/21 11/25/21 Rx Allergies Allergy/AdvReac Type Severity Reaction Status Date / Time No Known Allergies Allergy Verified 11/25/21 21:40 Surgical - Exam Vital Signs Temp Pulse Resp BP Pulse Ox 97.9 F 77 16 143/85 100 11/25/21 18:19 11/25/21 18:19 11/25/21 18:19 11/25/21 18:19 11/25/21 18:19 Results - Labs 11/26/21 04:53 11/26/21 04:53 Abnormal Lab Results - Last 24 Hours (Table) 11/25/21 11/25/21 11/25/21 Range/Units 18:53 18:53 22:14 RBC (4.30-5.90) m/uL Hgb (13.0-17.5) gm/dL Hct (39.0-53.0) % Plt Count (150-450) k/uL PT 12.3 H (9.0-12.0) sec INR 1.2 H (<1.2) Creatinine 1.67 H (0.66-1.25) mg/dL Glucose 105 H (74-99) mg/dL Calcium (8.4-10.2) mg/dL Alkaline Phosphatase 139 H (38-126) U/L Lipase 19 L (23-300) U/L Ur Specific Mck[place] >1.050 H (1.001-1.035) Urine Protein Trace H (Negative) Urine Ketones 1+ H (Negative) 11/26/21 11/26/21 Range/Units 04:53 04:53 RBC 4.28 L (4.30-5.90) m/uL Hgb 12.2 L (13.0-17.5) gm/dL Hct 37.5 L (39.0-53.0) % Plt Count 138 L (150-450) k/uL PT (9.0-12.0) sec INR (<1.2) Creatinine 1.41 H (0.66-1.25) mg/dL Glucose (74-99) mg/dL Calcium 8.3 L (8.4-10.2) mg/dL Alkaline Phosphatase (38-126) U/L Lipase (23-300) U/L Ur Specific [place] (1.001-1.035) Urine Protein (Negative) Urine Ketones (Negative) Diabetes panel 11/25/21 11/26/21 Range/Units 18:53 04:53 Sodium 137 138 (137-145) mmol/L Potassium 3.9 3.8 (3.5-5.1) mmol/L Chloride 103 106 (98-107) mmol/L Carbon Dioxide 22 24 (22-30) mmol/L BUN 18 17 (9-20) mg/dL Creatinine 1.67 H 1.41 H (0.66-1.25) mg/dL Glucose 105 H 89 (74-99) mg/dL Calcium 9.0 8.3 L (8.4-10.2) mg/dL AST 30 (17-59) U/L ALT 24 (4-49) U/L Alkaline Phosphatase 139 H (38-126) U/L Total Protein 7.2 (6.3-8.2) g/dL Albumin 4.3 (3.5-5.0) g/dL Calcium panel 11/25/21 11/26/21 Range/Units 18:53 04:53 Calcium 9.0 8.3 L (8.4-10.2) mg/dL Albumin 4.3 (3.5-5.0) g/dL Pituitary panel 11/25/21 11/26/21 Range/Units 18:53 04:53 Sodium 137 138 (137-145) mmol/L Potassium 3.9 3.8 (3.5-5.1) mmol/L Chloride 103 106 (98-107) mmol/L Carbon Dioxide 22 24 (22-30) mmol/L BUN 18 17 (9-20) mg/dL Creatinine 1.67 H 1.41 H (0.66-1.25) mg/dL Glucose 105 H 89 (74-99) mg/dL Calcium 9.0 8.3 L (8.4-10.2) mg/dL Adrenal panel 11/25/21 11/26/21 Range/Units 18:53 04:53 Sodium 137 138 (137-145) mmol/L Potassium 3.9 3.8 (3.5-5.1) mmol/L Chloride 103 106 (98-107) mmol/L Carbon Dioxide 22 24 (22-30) mmol/L BUN 18 17 (9-20) mg/dL Creatinine 1.67 H 1.41 H (0.66-1.25) mg/dL Glucose 105 H 89 (74-99) mg/dL Calcium 9.0 8.3 L (8.4-10.2) mg/dL Total Bilirubin 0.8 (0.2-1.3) mg/dL AST 30 (17-59) U/L ALT 24 (4-49) U/L Alkaline Phosphatase 139 H (38-126) U/L Total Protein 7.2 (6.3-8.2) g/dL Albumin 4.3 (3.5-5.0) g/dL
--- NOTE | 2021-11-26 18:49 | NM ---
EXAMINATION TYPE: NM hepatobiliary w CCK DATE OF EXAM: 11/26/2021 COMPARISON: NONE HISTORY: TECHNIQUE: After the intravenous administration of 4.3 mCi Tc 99m Mebrofenin hepatobiliary scintigrap hy is performed. Immediate images post injection. FINDINGS: There is satisfactory initial accumulation of tracer by the liver. The gallbladder is visualized wit hin 18 minutes. The small bowel activity is noted within 30 to minutes. At one hour CCK was adminis tered, patient was injected with 2 mcg of Kinevac, and gallbladder ejection fraction is calculated at 26 %, . IMPRESSION: No evidence of cystic duct or common bile duct obstruction. No focal liver defect. There is abnormal hypokinetic gallbladder ejection fraction of 26%. Normal is more than 35%. This is suggestive of some gallbladder dysfunction.
[2021-11-26] MEDS ORDERED: NAPROXEN 500 MG PO PRN (19:29)
[2021-11-26] MEDS ORDERED: carisoprodoL 350 MG TAB PO PRN (19:29)
[2021-11-26] MEDS ORDERED: NON FORMULARY DRUG (Tadalafil [Cialis] 5 MG Tablet) PO PRN (19:29)
[2021-11-26] MEDS ORDERED: LORATADINE 10 MG TAB PO PRN (19:29)
[2021-11-26] MEDS: ENOXAPARIN 30 MG/0.3 ML SYRINGE SQ SCH (21:26)
[2021-11-26] MEDS: bisacodyL 10 MG SUPP RECTAL PRN (21:26)
[2021-11-26] MEDS: TAMSULOSIN 0.4 MG CAP.ER.24H PO SCH (21:27)
[2021-11-26] MEDS: FINASTERIDE 5 MG TAB PO SCH (21:27)
[2021-11-26] MEDS: ZOLPIDEM 5 MG TAB PO PRN (21:27)
[2021-11-26] MEDS: METOCLOPRAMIDE 10 MG TAB PO SCH (21:28)
[2021-11-27] MEDS: MORPHINE SULFATE 4 MG/ML SYRINGE IVP PRN ×3 (03:44→12:44)
[2021-11-27] MEDS: PANTOPRAZOLE 40 MG TABLET PO SCH (08:41)
[2021-11-27] MEDS: amLODIPine 5 MG TAB PO SCH (08:41)
[2021-11-27] MEDS: PIPERACILLIN-TAZOBACTAM 3.375 GM in SODIUM CHLORIDE 0.9% 100 ML IVPB SCH ×2 (08:41→14:54)
[2021-11-27] MEDS: FERROUS SULFATE 325 MG TAB PO SCH (08:41)
[2021-11-27] MEDS: METOCLOPRAMIDE 10 MG TAB PO SCH ×2 (08:41→12:46)
[2021-11-27] MEDS: CYANOCOBALAMIN 500 MCG TAB PO SCH (08:41)
[2021-11-27 10:48] LABS: African American GFR (CKD) 66.4 (60.0-200.0); Albumin 3.4 g/dL (3.8-4.9); Albumin/Globulin Ratio 1.48 (1.60-3.17); Anion Gap 8.9 mmol/L (10.00-18.00); Blood Urea Nitrogen 15.6 mg/dL (9.0-27.0); Calcium 8.4 mg/dL (8.7-10.3); Carbon Dioxide 23.1 mmol/L (20.0-27.5); Globulin 2.3 g/dL (1.6-3.3); Non-African American GFR(CKD) 57.3 (60.0-200.0); Potassium 3.8 mmol/L (3.5-5.5); Total Bilirubin 0.5 mg/dL (0.30-1.20); Total Protein 5.7 g/dL (6.2-8.2)
[2021-11-27] MEDS: bisacodyL 10 MG SUPP RECTAL PRN (10:49)
[2021-11-27 13:52] VITALS: BMI 31.1
--- NOTE | 2021-11-27 14:37 | XR ---
EXAMINATION TYPE: XR abdomen 2V DATE OF EXAM: 11/27/2021 COMPARISON: 10/16/2021 HISTORY: Trauma pain TECHNIQUE: One view abdominal series FINDINGS: The osseous structures are intact. The bowel gas pattern is nonspecific. Numerous dilated small emery l loops with air-fluid levels. Hypertrophic, degenerative and postsurgical changes involving the vert ebral column. Postsurgical change involving the hips with heterotopic ossification in the soft tissue s. IMPRESSION: 1. Findings highly suggestive of high-grade bowel structure correlate clinically.
--- NOTE | 2021-11-27 14:43 | P.PN ---
Subjective Progress Note Date: 11/27/21 CHIEF COMPLAINT: Abdominal pain HISTORY OF PRESENT ILLNESS: Patient complaining of upper abdominal pain with nausea. Patient is still requiring the IV morphine. He did a trial of a low fat diet for lunch with increasing abdominal pain. Apparently he had some nausea this has improved. He did have a bowel movement last night and flatus yesterday. His HIDA scan showed a hypokinetic gallbladder with an EF of 26%. He is afebrile. LFTs are normal sodium 139 potassium 3.8 creatinine has improved from 1.41 to 1.3 PHYSICAL EXAM: VITAL SIGNS: Reviewed GENERAL: Well-developed in no acute distress. HEENT: No sclera icterus. Extraocular movements grossly intact. Moist buccal mucosa. Head is atraumatic, normocephalic. Hears conversational speech. No nasal drainage. NECK: Supple without lymphadenopathy. CHEST: Non-labored respirations and equal bilateral excursions. CARDIOVASCULAR: Palpable 2+ radial pulses. ABDOMEN: Soft. Distended. Tenderness to palpation of the upper mid to right u pper quadrant MUSCULOSKELETAL: No clubbing or cyanosis. NEUROLOGIC: No focal or lateralizing signs. Cranial nerves II through XII grossly intact. PSYCH: Appropriate affect. Alert and oriented to person, place and time. SKIN: Well perfused. Good skin turgor. ASSESSMENT: 1. Abdominal pain 2. Enlarged gallbladder. With evidence of hypokinetic gallbladder on HIDA scan 3. Ileus 4. History of bowel obstructions 5. History of multiple abdominal surgeries 6. Most recent abdominal surgery 11/16/2021 with lysis of adhesions for recurrent bowel obstruction 7. Acute kidney injury likely due to dehydration PLAN: -Downgrade diet to clear liquids -Check abdominal x-ray for further evaluation of abdominal pain -Add simethicone gas drops -Add IV Reglan for possible ileus -Encourage patient to ambulate -Further recommendations forthcoming per surgeon regarding cholecystectomy Physician Pulpit Operator note has been reviewed by physician. Signing provider agrees with the documented findings, assessment, and plan of care. Objective - Vital Signs Vital signs: Vital Signs Temp 98.4 F 11/27/21 11:44 Pulse 94 11/27/21 11:44 Resp 18 11/27/21 11:44 BP 123/70 11/27/21 11:44 Pulse Ox 96 11/27/21 11:44 FiO2 Intake & Output 1011/27/21 11/27/21 18:59 06:59 18:59 Intake Total 640 Balance 640 Weight 101.151 kg 101.151 kg Intake: Intake, IV Titration 100 Amount Piperacillin-Tazobactam 3 100 .375 gm In Sodium Chloride 0.9% 100 ml @ 25 mls/hr IVPB Q8HR [facility] Rx# :[id number] Oral 540 Other: # Voids 2 # Bowel Movements 1 - Labs CBC & Chem 7: 11/26/21 04:53 11/27/21 06:46 Labs: Abnormal Lab Results - Last 24 Hours (Table) 11/27/21 Range/Units 06:46 Anion Gap 8.90 L (10.00-18.00) mmol/L Est GFR (CKD-EPI)NonAf 57.3 L (60.0-200.0) Calcium 8.4 L (8.7-10.3) mg/dL Total Protein 5.7 L (6.2-8.2) g/dL Albumin 3.4 L (3.8-4.9) g/dL Albumin/Globulin Ratio 1.48 L (1.60-3.17) g/dL Microbiology - Last 24 Hours (Table) 11/25/21 21:50 Blood Culture - Preliminary Blood No Growth after 24 hours 11/25/21 22:05 Blood Culture - Preliminary Blood No Growth after 24 hours
[2021-11-27] MEDS: SIMETHICONE 40 MG/0.6 ML DROPS 2,000 MG/30 ML BOTTLE PO SCH (14:52)
[2021-11-27] MEDS: METOCLOPRAMIDE 5 MG/ML 2 ML VIAL IVP SCH ×2 (14:52→15:15)
[2021-11-27] MEDS: HYDROmorphone 1 MG/ML 1 ML SYRINGE IVP PRN ×3 (15:56→21:27)
--- NOTE | 2021-11-27 18:44 | P.PN ---
Progress Note - Text Progress Note Date: 11/27/21 Xrays reviewed with patient with bowel obstruction. NG tube insertion reviewed with findings of studies described. NPO for now with NG tube discussed with patient and nurse via telephone.
[2021-11-27] MEDS: TAMSULOSIN 0.4 MG CAP.ER.24H PO SCH (21:23)
[2021-11-27] MEDS: ENOXAPARIN 30 MG/0.3 ML SYRINGE SQ SCH (21:24)
[2021-11-27] MEDS: FINASTERIDE 5 MG TAB PO SCH (21:25)
[2021-11-28] MEDS: PIPERACILLIN-TAZOBACTAM 3.375 GM in SODIUM CHLORIDE 0.9% 100 ML IVPB SCH ×3 (00:45→15:26)
[2021-11-28] MEDS: METOCLOPRAMIDE 5 MG/ML 2 ML VIAL IVP SCH ×4 (00:45→17:16)
[2021-11-28] MEDS: HYDROmorphone 1 MG/ML 1 ML SYRINGE IVP PRN ×8 (00:45→21:05)
[2021-11-28] MEDS: SIMETHICONE 40 MG/0.6 ML DROPS 2,000 MG/30 ML BOTTLE PO SCH ×5 (00:54→21:23)
[2021-11-28] MEDS: PANTOPRAZOLE 40 MG TABLET PO SCH (08:50)
[2021-11-28] MEDS: amLODIPine 5 MG TAB PO SCH (08:50)
[2021-11-28] MEDS: CYANOCOBALAMIN 500 MCG TAB PO SCH (08:50)
[2021-11-28] MEDS: FERROUS SULFATE 325 MG TAB PO SCH (08:51)
[2021-11-28] MEDS: SODIUM CHLORIDE 0.9% 1,000 ML IV SCH (10:46)
--- NOTE | 2021-11-28 13:30 | P.PN ---
Subjective Progress Note Date: 11/28/21 CHIEF COMPLAINT: Abdominal pain HISTORY OF PRESENT ILLNESS: Patient reporting improvement in abdominal pain after NG tube placed last night. His abdominal x-ray had shown findings his status of the high-grade bowel obstruction. Still had no flatus or bowel movement. Denies any nausea. NG tube output of 500. He also reports some decrease in his abdominal distention. He is complaining of pain behind his left knee that started yesterday. Denies any swelling. Afebrile. No new labs. PHYSICAL EXAM: VITAL SIGNS: Reviewed GENERAL: Well-developed in no acute distress. HEENT: No sclera icterus. Extraocular movements grossly intact. Moist buccal mucosa. Head is atraumatic, normocephalic. Hears conversational speech. No nasal drainage. NECK: Supple without lymphadenopathy. CHEST: Non-labored respirations and equal bilateral excursions. CARDIOVASCULAR: Palpable 2+ radial pulses. ABDOMEN: Soft. Decreased abdominal distention. Decreased tenderness to palpation of the upper mid abdomen NEUROLOGIC: No focal or lateralizing signs. Cranial nerves II through XII grossly intact. PSYCH: Appropriate affect. Alert and oriented to person, place and time. SKIN: Well perfused. Good skin turgor. ASSESSMENT: 1. Abdominal pain 2. High-grade bowel obstruction 3. Enlarged gallbladder. With evidence of hypokinetic gallbladder on HIDA scan 4. History of bowel obstructions 5. History of multiple abdominal surgeries 6. Most recent abdominal surgery 11/16/2021 with lysis of adhesions for recurrent bowel obstruction 7. Acute kidney injury likely due to dehydration 8. Pain behind the left knee PLAN: -Continue NG tube for decompression -Check follow-up abdominal x-ray -Nothing by mouth except for ice chips and popsicles -Downgrade diet to clear liquids -Continue IV fluids -Check venous Doppler left leg to rule out DVT. Possible Bonilla's cyst. -DVT prophylaxis Lovenox Physician Stump Shooter note has been reviewed by physician. Signing provider agrees with the documented findings, assessment, and plan of care. Objective - Vital Signs Vital signs: Vital Signs Temp 98.1 F 11/28/21 12:02 Pulse 57 L 11/28/21 12:02 Resp 18 11/28/21 12:02 BP 145/78 11/28/21 12:02 Pulse Ox 91 L 11/28/21 12:02 FiO2 Intake & Output 1011/28/21 11/28/21 18:59 06:59 18:59 Intake Total 800 0 Output Total 480 500 Balance 800 -480 -500 Weight 101.151 kg Intake: Intake, IV Titration 200 Amount Piperacillin-Tazobactam 3 200 .375 gm In Sodium Chloride 0.9% 100 ml @ 25 mls/hr IVPB Q8HR [facility] Rx# :[id number] Oral 600 0 Output: Gastric Drainage 480 Urine 500 Other: # Voids 3 2 # Bowel Movements 0 - Labs CBC & Chem 7: 11/26/21 04:53 11/27/21 06:46 Labs: Microbiology - Last 24 Hours (Table) 11/25/21 22:05 Blood Culture - Preliminary Blood No Growth after 48 hours 11/25/21 21:50 Blood Culture - Preliminary Blood No Growth after 48 hours
--- NOTE | 2021-11-28 14:39 | US ---
EXAMINATION TYPE: US venous doppler duplex LE LT DATE OF EXAM: 11/28/2021 2:28 PM COMPARISON: NONE CLINICAL HISTORY: Left posterior knee pain. SIDE PERFORMED: Left TECHNIQUE: The lower extremity deep venous system is examined utilizing real time linear array sonog otoniel with graded compression, doppler sonography and color-flow sonography. VESSELS IMAGED: Common Femoral Vein Deep Femoral Vein Greater Saphenous Vein * Femoral Vein Popliteal Vein Small Saphenous Vein * Proximal Calf Veins (* superficial vessels) Incidental finding left posterior popliteal fossa, anechoic fluid collection 6.5 x 1.4 x 3.4cm. Grayscale, color doppler, spectral doppler imaging performed of the deep veins of the lower extremiti es. There is normal flow, compressibility, vascular waveforms. Left Leg: Negative for DVT IMPRESSION: No evident deep venous thrombosis within the left lower extremity from the level the kne e centrally. Sizable semimembranosus gastrocnemius cyst is suspected
--- NOTE | 2021-11-28 15:16 | XR ---
2 view abdomen HISTORY: Small bowel obstruction follow-up 2 views the abdomen on 3 images correlated to prior abdomen 11/27/2021 Postop changes are noted to the hips and spine as on prior exam. Distended loops of small bowel are a gain noted. NG tube is in place. No evident pneumoperitoneum. Lung bases are clear. Air-fluid levels are present on the upright exam. IMPRESSION: Findings are consistent with small bowel obstruction
[2021-11-28] MEDS: TAMSULOSIN 0.4 MG CAP.ER.24H PO SCH (21:18)
[2021-11-28] MEDS: FINASTERIDE 5 MG TAB PO SCH (21:18)
[2021-11-28] MEDS: ENOXAPARIN 30 MG/0.3 ML SYRINGE SQ SCH (21:20)
[2021-11-28] MEDS: ZOLPIDEM 5 MG TAB PO PRN (21:25)
[2021-11-29] MEDS: PIPERACILLIN-TAZOBACTAM 3.375 GM in SODIUM CHLORIDE 0.9% 100 ML IVPB SCH ×3 (00:48→15:18)
[2021-11-29] MEDS: METOCLOPRAMIDE 5 MG/ML 2 ML VIAL IVP SCH ×4 (00:49→22:08)
[2021-11-29] MEDS: HYDROmorphone 1 MG/ML 1 ML SYRINGE IVP PRN ×7 (00:57→22:12)
[2021-11-29] MEDS: SODIUM CHLORIDE 0.9% 1,000 ML IV SCH ×2 (05:24→15:19)
--- NOTE | 2021-11-29 08:04 | P.PN ---
Subjective Progress Note Date: 11/29/21 Patient seen and evaluated. Still has persistent small bowel obstruction. No passage of flatus. Reports decreased abdominal distention. We will follow-up imaging including computed tomography scan demonstrates possible transition point along the left upper quadrant. Recommend robotic lysis of adhesions. Benefits described. Additionally, patient has new cyst of the left knee. We'll consult orthopedic. We'll obtain PICC line for TPN due to prolonged nothing by mouth status. Objective - Vital Signs Vital signs: Vital Signs Temp 99.4 F 11/29/21 05:00 Pulse 61 11/29/21 05:00 Resp 16 11/29/21 05:00 BP 127/73 11/29/21 05:00 Pulse Ox 98 11/29/21 05:00 FiO2 Intake & Output 11/28/21 11/29/21 11/29/21 18:59 06:59 18:59 Intake Total 950 Output Total 1400 600 Balance -450 -600 Intake: Intake, IV Titration 950 Amount Piperacillin-Tazobactam 3 200 .375 gm In Sodium Chloride 0.9% 100 ml @ 25 mls/hr IVPB Q8HR [facility] Rx# :[id number] Sodium Chloride 0.9% 1, 750 000 ml @ 75 mls/hr IV . [id number] [facility] Rx#:[id number] Output: Gastric Drainage 900 Urine 500 600 Other: # Voids 3 # Bowel Movements 0 - Labs CBC & Chem 7: 11/26/21 04:53 11/27/21 06:46 Labs: Microbiology - Last 24 Hours (Table) 11/25/21 22:05 Blood Culture - Preliminary Blood No Growth after 72 hours 11/25/21 21:50 Blood Culture - Preliminary Blood No Growth after 72 hours
--- NOTE | 2021-11-29 08:04 | P.PN ---
Subjective Progress Note Date: 11/29/21 Patient seen and evaluated. Still has persistent small bowel obstruction. No passage of flatus. Reports decreased abdominal distention. We will follow-up imaging including computed tomography scan demonstrates possible transition point along the left upper quadrant. Recommend robotic lysis of adhesions. Benefits described. Additionally, patient has new cyst of the left knee. We'll consult orthopedic. We'll obtain PICC line for TPN due to prolonged nothing by mouth status. Objective - Vital Signs Vital signs: Vital Signs Temp 99.4 F 11/29/21 05:00 Pulse 61 11/29/21 05:00 Resp 16 11/29/21 05:00 BP 127/73 11/29/21 05:00 Pulse Ox 98 11/29/21 05:00 FiO2 Intake & Output 11/28/21 11/29/21 11/29/21 18:59 06:59 18:59 Intake Total 950 Output Total 1400 600 Balance -450 -600 Intake: Intake, IV Titration 950 Amount Piperacillin-Tazobactam 3 200 .375 gm In Sodium Chloride 0.9% 100 ml @ 25 mls/hr IVPB Q8HR [facility] Rx# :[id number] Sodium Chloride 0.9% 1, 750 000 ml @ 75 mls/hr IV . [id number] [facility] Rx#:[id number] Output: Gastric Drainage 900 Urine 500 600 Other: # Voids 3 # Bowel Movements 0 - Labs CBC & Chem 7: 11/26/21 04:53 11/27/21 06:46 Labs: Microbiology - Last 24 Hours (Table) 11/25/21 22:05 Blood Culture - Preliminary Blood No Growth after 72 hours 11/25/21 21:50 Blood Culture - Preliminary Blood No Growth after 72 hours
[2021-11-29] MEDS: FERROUS SULFATE 325 MG TAB PO SCH (08:40)
[2021-11-29] MEDS: CYANOCOBALAMIN 500 MCG TAB PO SCH (08:40)
[2021-11-29] MEDS: SIMETHICONE 40 MG/0.6 ML DROPS 2,000 MG/30 ML BOTTLE PO SCH ×3 (08:40→22:08)
[2021-11-29] MEDS: PANTOPRAZOLE 40 MG TABLET PO SCH (08:40)
[2021-11-29] MEDS: amLODIPine 5 MG TAB PO SCH (08:40)
--- NOTE | 2021-11-29 08:42 | P.CONS ---
History of Present Illness - Reason for Consult Consult date: 11/29/21 Medical management - Chief Complaint Small bowel obstruction - History of Present Illness This is a history of physical 66-year-old black male who has underlying history of adhesions from previous surgeries. He is struggling over the last several years due to multiple issues related to small bowel obstruction his opiate dependence secondary to DDD and is complaining of left knee pain. NG tube is been placed but he has not been resolving with appropriate therapy. Robotic lysis of adhesions scheduled. We're consulted for medical management. No fever or chills. No appetite increase stated. No flatus Review of Systems Constitutional: Denies chills, Denies fever Eyes: denies blurred vision, denies pain Ears, nose, mouth and throat: Denies headache, Denies sore throat Cardiovascular: Denies chest pain, Denies shortness of breath Respiratory: Denies cough Gastrointestinal: Reports as per HPI Musculoskeletal: Denies myalgias Past Medical History Past Medical History: GERD/Reflux, Hearing Disorder / Deafness, Osteoarthritis (OA), Prostate Disorder Additional Past Medical History / Comment(s): Deaf in right ear, BACK PAIN, DJD, enlarged prostate, bowel obstruction, colitis, Mrsa History of Any Multi-Drug Resistant Organisms: MRSA Year Discovered:: 2014 MDRO Source:: nose Past Surgical History: Back Surgery, Bowel Resection, Hernia Repair, Joint Replacement, Orthopedic Surgery Additional Past Surgical History / Comment(s): Back surgery 2-3-21, right knee replacement, right hip replacement, left hip replacement X2, PAIN PROCEDURES, COLLARBONE REPAIRED, right inguinal repair., bowel resection Past Anesthesia/Blood Transfusion Reactions: No Reported Reaction Additional Past Anesthesia/Blood Transfusion Reaction / Comm: No hx blood tr ansfusion. Past Psychological History: No Psychological Hx Reported Smoking Status: Never smoker Past Alcohol Use History: Occasional Additional Past Alcohol Use History / Comment(s): . Past Drug Use History: None Reported - Past Family History Father Family Medical History: Congestive Heart Failure (CHF) Brother(s) Family Medical History: Deep Vein Thrombosis (DVT) Medications and Allergies Home Medications Medication Instructions Recorded Confirmed Type oxyCODONE-APAP 10-325MG [Percocet 1 tab PO QID PRN 05/31/14 11/25/21 History 10-325 mg] carisoprodoL [Soma] 350 mg PO QID PRN 07/04/16 11/25/21 History Multivitamin [Men's Multi-Vitamin] 1 tab PO DAILY 10/14/16 11/25/21 History Cetirizine HCl [Zyrtec] 10 mg PO BID PRN 01/15/18 11/25/21 History Dutasteride [Avodart] 0.5 mg PO HS 03/16/20 11/25/21 History Iron Tab 27 mg PO DAILY 03/16/20 11/25/21 History Pantoprazole Sodium [Protonix] 40 mg PO DAILY 03/16/20 11/25/21 History Tamsulosin [Flomax] 0.8 mg PO HS 03/29/20 11/25/21 History tadalafiL [Cialis] 5 mg PO DAILY PRN 03/29/20 11/25/21 History Acetaminophen Tab [Tylenol] 1,000 mg PO Q6HR PRN #30 tablet 10/30/20 11/25/21 Rx Zolpidem [Ambien] 10 mg PO HS PRN 11/19/20 11/25/21 History Cyanocobalamin (Vitamin B-12) 1,000 mcg PO DAILY 01/04/21 11/25/21 History [Vitamin B-12] Naproxen 500 mg PO BID PRN 01/04/21 11/25/21 History amLODIPine [Norvasc] 5 mg PO DAILY 01/04/21 11/25/21 History Meloxicam [Mobic] 7.5 - 15 mg PO DAILY PRN 07/31/21 11/25/21 History Metoclopramide [Reglan] 10 mg PO ACHS #20 tab 11/21/21 11/25/21 Rx Allergies Allergy/AdvReac Type Severity Reaction Status Date / Time No Known Allergies Allergy Verified 11/25/21 21:40 Physical Exam Vitals: Vital Signs Temp Pulse Resp BP Pulse Ox 11/29/21 05:00 99.4 F 61 16 127/73 98 11/28/21 20:28 98.2 F 68 16 133/75 93 L 11/28/21 20:00 68 16 11/28/21 12:02 98.1 F 57 L 18 145/78 91 L 11/28/21 08:52 71 118/63 Intake and Output 11/28/21 11/29/21 11/29/21 22:59 06:59 14:59 Intake Total 950 Output Total 900 600 Balance 50 -600 Intake: Intake, IV Titration 950 Amount Piperacillin-Tazobactam 3 200 .375 gm In Sodium Chloride 0.9% 100 ml @ 25 mls/hr IVPB Q8HR [facility] Rx# :[id number] Sodium Chloride 0.9% 1, 750 000 ml @ 75 mls/hr IV . [id number] [facility] Rx#:[id number] Output: Gastric Drainage 900 Urine 0 600 Other: # Voids 3 # Bowel Movements 0 - Constitutional General appearance: cooperative - EENT Eyes: EOMI - Neck Neck: no lymphadenopathy - Respiratory Respiratory: bilateral: CTA - Cardiovascular Rhythm: regular Heart sounds: normal: S1, S2 Abnormal Heart Sounds: no S3 Gallop - Gastrointestinal General gastrointestinal: decreased bowel sounds, distended - Integumentary Integumentary: no cellulitis - Psychiatric Psychiatric: A&O x's 3 Results CBC & Chem 7: 11/26/21 04:53 11/27/21 06:46 Labs: Microbiology - Last 24 Hours (Table) 11/25/21 22:05 Blood Culture - Preliminary Blood No Growth after 72 hours 11/25/21 21:50 Blood Culture - Preliminary Blood No Growth after 72 hours Assessment and Plan (1) Small bowel obstruction Current Visit: Yes Status: Acute Code(s): K56.609 - UNSP INTESTNL OBST, UNSP TO PARTIAL VERSUS COMPLETE OBST SNOMED Code(s): 411698552 (2) Chronic pain syndrome Current Visit: No Status: Acute Code(s): G89.4 - CHRONIC PAIN SYNDROME SNOMED Code(s): 552078144 (3) DDD (degenerative disc disease), lumbar Current Visit: No Status: Acute Code(s): M51.36 - OTHER INTERVERTEBRAL DISC DEGENERATION, LUMBAR REGION SNOMED Code(s): 54728738 (4) Low back pain Current Visit: No Status: Acute Code(s): M54.5 - LOW BACK PAIN * DO NOT USE * SNOMED Code(s): 574427561 (5) Lumbar facet arthropathy Current Visit: No Status: Acute Code(s): M47.816 - SPONDYLOSIS W/O M YELOPATHY OR RADICULOPATHY, LUMBAR REGION SNOMED Code(s): 375131586 Plan: We will go ahead and continue to follow during this hospitalization. Await postop treatment. Check CBC and CMP in a.m. GI prophylaxis. DVT element infection. Time with Patient: Greater than 30
--- NOTE | 2021-11-29 08:42 | P.CONS ---
History of Present Illness - Reason for Consult Consult date: 11/29/21 Medical management - Chief Complaint Small bowel obstruction - History of Present Illness This is a history of physical 66-year-old black male who has underlying history of adhesions from previous surgeries. He is struggling over the last several years due to multiple issues related to small bowel obstruction his opiate dependence secondary to DDD and is complaining of left knee pain. NG tube is been placed but he has not been resolving with appropriate therapy. Robotic lysis of adhesions scheduled. We're consulted for medical management. No fever or chills. No appetite increase stated. No flatus Review of Systems Constitutional: Denies chills, Denies fever Eyes: denies blurred vision, denies pain Ears, nose, mouth and throat: Denies headache, Denies sore throat Cardiovascular: Denies chest pain, Denies shortness of breath Respiratory: Denies cough Gastrointestinal: Reports as per HPI Musculoskeletal: Denies myalgias Past Medical History Past Medical History: GERD/Reflux, Hearing Disorder / Deafness, Osteoarthritis (OA), Prostate Disorder Additional Past Medical History / Comment(s): Deaf in right ear, BACK PAIN, DJD, enlarged prostate, bowel obstruction, colitis, Mrsa History of Any Multi-Drug Resistant Organisms: MRSA Year Discovered:: 2014 MDRO Source:: nose Past Surgical History: Back Surgery, Bowel Resection, Hernia Repair, Joint Replacement, Orthopedic Surgery Additional Past Surgical History / Comment(s): Back surgery 2-3-21, right knee replacement, right hip replacement, left hip replacement X2, PAIN PROCEDURES, COLLARBONE REPAIRED, right inguinal repair., bowel resection Past Anesthesia/Blood Transfusion Reactions: No Reported Reaction Additional Past Anesthesia/Blood Transfusion Reaction / Comm: No hx blood tr ansfusion. Past Psychological History: No Psychological Hx Reported Smoking Status: Never smoker Past Alcohol Use History: Occasional Additional Past Alcohol Use History / Comment(s): . Past Drug Use History: None Reported - Past Family History Father Family Medical History: Congestive Heart Failure (CHF) Brother(s) Family Medical History: Deep Vein Thrombosis (DVT) Medications and Allergies Home Medications Medication Instructions Recorded Confirmed Type oxyCODONE-APAP 10-325MG [Percocet 1 tab PO QID PRN 05/31/14 11/25/21 History 10-325 mg] carisoprodoL [Soma] 350 mg PO QID PRN 07/04/16 11/25/21 History Multivitamin [Men's Multi-Vitamin] 1 tab PO DAILY 10/14/16 11/25/21 History Cetirizine HCl [Zyrtec] 10 mg PO BID PRN 01/15/18 11/25/21 History Dutasteride [Avodart] 0.5 mg PO HS 03/16/20 11/25/21 History Iron Tab 27 mg PO DAILY 03/16/20 11/25/21 History Pantoprazole Sodium [Protonix] 40 mg PO DAILY 03/16/20 11/25/21 History Tamsulosin [Flomax] 0.8 mg PO HS 03/29/20 11/25/21 History tadalafiL [Cialis] 5 mg PO DAILY PRN 03/29/20 11/25/21 History Acetaminophen Tab [Tylenol] 1,000 mg PO Q6HR PRN #30 tablet 10/30/20 11/25/21 Rx Zolpidem [Ambien] 10 mg PO HS PRN 11/19/20 11/25/21 History Cyanocobalamin (Vitamin B-12) 1,000 mcg PO DAILY 01/04/21 11/25/21 History [Vitamin B-12] Naproxen 500 mg PO BID PRN 01/04/21 11/25/21 History amLODIPine [Norvasc] 5 mg PO DAILY 01/04/21 11/25/21 History Meloxicam [Mobic] 7.5 - 15 mg PO DAILY PRN 07/31/21 11/25/21 History Metoclopramide [Reglan] 10 mg PO ACHS #20 tab 11/21/21 11/25/21 Rx Allergies Allergy/AdvReac Type Severity Reaction Status Date / Time No Known Allergies Allergy Verified 11/25/21 21:40 Physical Exam Vitals: Vital Signs Temp Pulse Resp BP Pulse Ox 11/29/21 05:00 99.4 F 61 16 127/73 98 11/28/21 20:28 98.2 F 68 16 133/75 93 L 11/28/21 20:00 68 16 11/28/21 12:02 98.1 F 57 L 18 145/78 91 L 11/28/21 08:52 71 118/63 Intake and Output 11/28/21 11/29/21 11/29/21 22:59 06:59 14:59 Intake Total 950 Output Total 900 600 Balance 50 -600 Intake: Intake, IV Titration 950 Amount Piperacillin-Tazobactam 3 200 .375 gm In Sodium Chloride 0.9% 100 ml @ 25 mls/hr IVPB Q8HR [facility] Rx# :[id number] Sodium Chloride 0.9% 1, 750 000 ml @ 75 mls/hr IV . [id number] [facility] Rx#:[id number] Output: Gastric Drainage 900 Urine 0 600 Other: # Voids 3 # Bowel Movements 0 - Constitutional General appearance: cooperative - EENT Eyes: EOMI - Neck Neck: no lymphadenopathy - Respiratory Respiratory: bilateral: CTA - Cardiovascular Rhythm: regular Heart sounds: normal: S1, S2 Abnormal Heart Sounds: no S3 Gallop - Gastrointestinal General gastrointestinal: decreased bowel sounds, distended - Integumentary Integumentary: no cellulitis - Psychiatric Psychiatric: A&O x's 3 Results CBC & Chem 7: 11/26/21 04:53 11/27/21 06:46 Labs: Microbiology - Last 24 Hours (Table) 11/25/21 22:05 Blood Culture - Preliminary Blood No Growth after 72 hours 11/25/21 21:50 Blood Culture - Preliminary Blood No Growth after 72 hours Assessment and Plan (1) Small bowel obstruction Current Visit: Yes Status: Acute Code(s): K56.609 - UNSP INTESTNL OBST, UNSP TO PARTIAL VERSUS COMPLETE OBST SNOMED Code(s): 460094076 (2) Chronic pain syndrome Current Visit: No Status: Acute Code(s): G89.4 - CHRONIC PAIN SYNDROME SNOMED Code(s): 093440569 (3) DDD (degenerative disc disease), lumbar Current Visit: No Status: Acute Code(s): M51.36 - OTHER INTERVERTEBRAL DISC DEGENERATION, LUMBAR REGION SNOMED Code(s): 80609826 (4) Low back pain Current Visit: No Status: Acute Code(s): M54.5 - LOW BACK PAIN * DO NOT USE * SNOMED Code(s): 912873352 (5) Lumbar facet arthropathy Current Visit: No Status: Acute Code(s): M47.816 - SPONDYLOSIS W/O M YELOPATHY OR RADICULOPATHY, LUMBAR REGION SNOMED Code(s): 960279796 Plan: We will go ahead and continue to follow during this hospitalization. Await postop treatment. Check CBC and CMP in a.m. GI prophylaxis. DVT element infection. Time with Patient: Greater than 30
--- NOTE | 2021-11-29 10:21 | XR ---
EXAMINATION TYPE: XR knee limited LT DATE OF EXAM: 11/29/2021 COMPARISON: NONE HISTORY: Pain TECHNIQUE: Two views are submitted. FINDINGS: There is narrowing of medial compartment knee joint with hypertrophic spurring and there is a large s uprapatellar bursal fluid collection with advanced hypertrophic arthropathy of the tibiofemoral joint . No acute fracture or dislocation.. Osseous structures are intact. No acute fracture seen. Flatte keisha slight lucency involving the medial femoral condyle. IMPRESSION: 1. Severe osteoarthritis with hypertrophic spurring. There is a slight deformity of the medial femora l condyle which can occasionally be associated with osteochondritis dissecans. Recommend MRI..
[2021-11-29] MEDS ORDERED: LIDOCAINE 1% INJ 10MG/ML (20 ML MDV) ONE (10:39)
[2021-11-29] MEDS ORDERED: methylPREDNISolone ACETATE 40 MG/ML 1 ML VIAL INTRAARTIC ONE (11:00)
--- NOTE | 2021-11-29 11:31 | P.CNOR ---
History of Present Illness - [facility] Consult date: 11/29/21 Consult reason: joint pain (Left knee pain, swelling) History of present illness: This is a 66-year-old male who was admitted with a bowel obstruction. He developed significant left knee swelling and pain. We're consulted for orthopedic evaluation. He denies any injury or trauma to the knee. He states that he did ref several games this past weekend. He reports no recent fever or chills or illnesses. Past Medical History Past Medical History: GERD/Reflux, Hearing Disorder / Deafness, Osteoarthritis (OA), Prostate Disorder Additional Past Medical History / Comment(s): Deaf in right ear, BACK PAIN, DJD, enlarged prostate, bowel obstruction, colitis, Mrsa History of Any Multi-Drug Resistant Organisms: MRSA Year Discovered:: 2014 MDRO Source:: nose Past Surgical History: Back Surgery, Bowel Resection, Hernia Repair, Joint Replacement, Orthopedic Surgery Additional Past Surgical History / Comment(s): Back surgery 03-22-20, right knee replacement, right hip replacement, left hip replacement X2, PAIN PROCEDURES, COLLARBONE REPAIRED, right inguinal repair., bowel resection Past Anesthesia/Blood Transfusion Reactions: No Reported Reaction Additional Past Anesthesia/Blood Transfusion Reaction / Comm: No hx blood transfusion. Past Psychological History: No Psychological Hx Reported Smoking Status: Never smoker Past Alcohol Use History: Occasional Additional Past Alcohol Use History / Comment(s): . Past Drug Use History: None Reported - Past Family History Father Family Medical History: Congestive Heart Failure (CHF) Brother(s) Family Medical History: Deep Vein Thrombosis (DVT) Medications and Allergies Home Medications Medication Instructions Recorded Confirmed Type oxyCODONE-APAP 10-325MG [Percocet 1 tab PO QID PRN 05/31/14 11/25/21 History 10-325 mg] carisoprodoL [Soma] 350 mg PO QID PRN 07/04/16 11/25/21 History Multivitamin [Men's Multi-Vitamin] 1 tab PO DAILY 10/14/16 11/25/21 History Cetirizine HCl [Zyrtec] 10 mg PO BID PRN 01/15/18 11/25/21 History Dutasteride [Avodart] 0.5 mg PO HS 03/16/20 11/25/21 History Iron Tab 27 mg PO DAILY 03/16/20 11/25/21 History Pantoprazole Sodium [Protonix] 40 mg PO DAILY 03/16/20 11/25/21 History Tamsulosin [Flomax] 0.8 mg PO HS 03/29/20 11/25/21 History tadalafiL [Cialis] 5 mg PO DAILY PRN 03/29/20 11/25/21 History Acetaminophen Tab [Tylenol] 1,000 mg PO Q6HR PRN #30 tablet 10/30/20 11/25/21 Rx Zolpidem [Ambien] 10 mg PO HS PRN 11/19/20 11/25/21 History Cyanocobalamin (Vitamin B-12) 1,000 mcg PO DAILY 01/04/21 11/25/21 History [Vitamin B-12] Naproxen 500 mg PO BID PRN 01/04/21 11/25/21 History amLODIPine [Norvasc] 5 mg PO DAILY 01/04/21 11/25/21 History Meloxicam [Mobic] 7.5 - 15 mg PO DAILY PRN 07/31/21 11/25/21 History Metoclopramide [Reglan] 10 mg PO ACHS #20 tab 11/21/21 11/25/21 Rx Allergies Allergy/AdvReac Type Severity Reaction Status Date / Time No Known Allergies Allergy Verified 11/25/21 21:40 Physical Examination This is a pleasant 66-year-old male in no acute distress. He is alert and oriented 3. Exam of the left lower extremity reveals a 3+ effusion. There is no erythema or ecchymosis. Slight increased warmth to the knee. He has pain with any motion of the knee. He has full foot and ankle motion without difficulty or pain. Neurovascular status to the lower extremity is intact. Results X-rays of the left knee reveal tricompartmental degenerative arthritis. There is near [id number] contact in the patellofemoral compartment. No acute fractures noted. - Labs Labs: Microbiology - Last 24 Hours (Table) 11/25/21 22:05 Blood Culture - Preliminary Blood No Growth after 72 hours 11/25/21 21:50 Blood Culture - Preliminary Blood No Growth after 72 hours H & H 11/25/21 11/26/21 Range/Units 18:53 04:53 Hgb 13.5 12.2 L (13.0-17.5) gm/dL Hct 41.5 37.5 L (39.0-53.0) % Coagulation 11/25/21 Range/Units 18:53 INR 1.2 H (<1.2) Result Diagrams: 11/26/21 04:53 11/27/21 06:46 Assessment and Plan (1) Primary localized osteoarthritis of left knee Current Visit: Yes Status: Acute Code(s): M17.12 - UNILATERAL PRIMARY OSTEOARTHRITIS, LEFT KNEE SNOMED Code(s): 891623188855912 (2) Effusion of left knee Current Visit: Yes Status: Acute Code(s): M25.462 - EFFUSION, LEFT KNEE SNOMED Code(s): 472065908403454 (3) Small bowel obstruction Current Visit: Yes Status: Acute Code(s): K56.609 - UNSP INTESTNL OBST, UNSP TO PARTIAL VERSUS COMPLETE OBST SNOMED Code(s): 099699962 Plan: The clinical and x-ray findings are discussed with the patient. It is recommended he undergo aspiration and injection with bilateral total left knee. The patient consents to the procedure. Procedure: Aspiration of the left knee is performed under sterile conditions. I obtained approximately 80cc of cloudy yellow fluid. The knee is then injected with 40 mg of Depo-Medrol. Fluid is sent to the lab for culture and sensitivity as well as cell count and crystal identification. He is placed in a compressive Mike wrap. We will await fluid analysis results and continue to follow. He may ambulate as tolerated.
--- NOTE | 2021-11-29 11:31 | P.CNOR ---
History of Present Illness - [facility] Consult date: 11/29/21 Consult reason: joint pain (Left knee pain, swelling) History of present illness: This is a 66-year-old male who was admitted with a bowel obstruction. He developed significant left knee swelling and pain. We're consulted for orthopedic evaluation. He denies any injury or trauma to the knee. He states that he did ref several games this past weekend. He reports no recent fever or chills or illnesses. Past Medical History Past Medical History: GERD/Reflux, Hearing Disorder / Deafness, Osteoarthritis (OA), Prostate Disorder Additional Past Medical History / Comment(s): Deaf in right ear, BACK PAIN, DJD, enlarged prostate, bowel obstruction, colitis, Mrsa History of Any Multi-Drug Resistant Organisms: MRSA Year Discovered:: 2014 MDRO Source:: nose Past Surgical History: Back Surgery, Bowel Resection, Hernia Repair, Joint Replacement, Orthopedic Surgery Additional Past Surgical History / Comment(s): Back surgery 03-22-20, right knee replacement, right hip replacement, left hip replacement X2, PAIN PROCEDURES, COLLARBONE REPAIRED, right inguinal repair., bowel resection Past Anesthesia/Blood Transfusion Reactions: No Reported Reaction Additional Past Anesthesia/Blood Transfusion Reaction / Comm: No hx blood transfusion. Past Psychological History: No Psychological Hx Reported Smoking Status: Never smoker Past Alcohol Use History: Occasional Additional Past Alcohol Use History / Comment(s): . Past Drug Use History: None Reported - Past Family History Father Family Medical History: Congestive Heart Failure (CHF) Brother(s) Family Medical History: Deep Vein Thrombosis (DVT) Medications and Allergies Home Medications Medication Instructions Recorded Confirmed Type oxyCODONE-APAP 10-325MG [Percocet 1 tab PO QID PRN 05/31/14 11/25/21 History 10-325 mg] carisoprodoL [Soma] 350 mg PO QID PRN 07/04/16 11/25/21 History Multivitamin [Men's Multi-Vitamin] 1 tab PO DAILY 10/14/16 11/25/21 History Cetirizine HCl [Zyrtec] 10 mg PO BID PRN 01/15/18 11/25/21 History Dutasteride [Avodart] 0.5 mg PO HS 03/16/20 11/25/21 History Iron Tab 27 mg PO DAILY 03/16/20 11/25/21 History Pantoprazole Sodium [Protonix] 40 mg PO DAILY 03/16/20 11/25/21 History Tamsulosin [Flomax] 0.8 mg PO HS 03/29/20 11/25/21 History tadalafiL [Cialis] 5 mg PO DAILY PRN 03/29/20 11/25/21 History Acetaminophen Tab [Tylenol] 1,000 mg PO Q6HR PRN #30 tablet 10/30/20 11/25/21 Rx Zolpidem [Ambien] 10 mg PO HS PRN 11/19/20 11/25/21 History Cyanocobalamin (Vitamin B-12) 1,000 mcg PO DAILY 01/04/21 11/25/21 History [Vitamin B-12] Naproxen 500 mg PO BID PRN 01/04/21 11/25/21 History amLODIPine [Norvasc] 5 mg PO DAILY 01/04/21 11/25/21 History Meloxicam [Mobic] 7.5 - 15 mg PO DAILY PRN 07/31/21 11/25/21 History Metoclopramide [Reglan] 10 mg PO ACHS #20 tab 11/21/21 11/25/21 Rx Allergies Allergy/AdvReac Type Severity Reaction Status Date / Time No Known Allergies Allergy Verified 11/25/21 21:40 Physical Examination This is a pleasant 66-year-old male in no acute distress. He is alert and oriented 3. Exam of the left lower extremity reveals a 3+ effusion. There is no erythema or ecchymosis. Slight increased warmth to the knee. He has pain with any motion of the knee. He has full foot and ankle motion without difficulty or pain. Neurovascular status to the lower extremity is intact. Results X-rays of the left knee reveal tricompartmental degenerative arthritis. There is near [id number] contact in the patellofemoral compartment. No acute fractures noted. - Labs Labs: Microbiology - Last 24 Hours (Table) 11/25/21 22:05 Blood Culture - Preliminary Blood No Growth after 72 hours 11/25/21 21:50 Blood Culture - Preliminary Blood No Growth after 72 hours H & H 11/25/21 11/26/21 Range/Units 18:53 04:53 Hgb 13.5 12.2 L (13.0-17.5) gm/dL Hct 41.5 37.5 L (39.0-53.0) % Coagulation 11/25/21 Range/Units 18:53 INR 1.2 H (<1.2) Result Diagrams: 11/26/21 04:53 11/27/21 06:46 Assessment and Plan (1) Primary localized osteoarthritis of left knee Current Visit: Yes Status: Acute Code(s): M17.12 - UNILATERAL PRIMARY OSTEOARTHRITIS, LEFT KNEE SNOMED Code(s): 110643493440392 (2) Effusion of left knee Current Visit: Yes Status: Acute Code(s): M25.462 - EFFUSION, LEFT KNEE SNOMED Code(s): 178077593484444 (3) Small bowel obstruction Current Visit: Yes Status: Acute Code(s): K56.609 - UNSP INTESTNL OBST, UNSP TO PARTIAL VERSUS COMPLETE OBST SNOMED Code(s): 782600510 Plan: The clinical and x-ray findings are discussed with the patient. It is recommended he undergo aspiration and injection with bilateral total left knee. The patient consents to the procedure. Procedure: Aspiration of the left knee is performed under sterile conditions. I obtained approximately 80cc of cloudy yellow fluid. The knee is then injected with 40 mg of Depo-Medrol. Fluid is sent to the lab for culture and sensitivity as well as cell count and crystal identification. He is placed in a compressive Mike wrap. We will await fluid analysis results and continue to follow. He may ambulate as tolerated.
[2021-11-29 11:53] LABS: INR 1.3 (<1.2); Prothrombin Time 13.3 sec (9.0-12.0)
[2021-11-29 13:00] LABS: Ionized Calcium 4.7 mg/dL (4.5-5.3)
[2021-11-29 13:21] LABS: African American GFR (CKD) 71 (>60 ml/min/1.73 sqM); Anion Gap 11 mmol/L; Blood Urea Nitrogen 14 mg/dL (9-20); Calcium 8.4 mg/dL (8.4-10.2); Carbon Dioxide 23 mmol/L (22-30); Chloride 104 mmol/L (98-107); Glucose 104 mg/dL (74-99); Magnesium 1.8 mg/dL (1.6-2.3); Non-African American GFR(CKD) 61 (>60 ml/min/1.73 sqM); Phosphorus 3.1 mg/dL (2.5-4.5); Potassium 3.8 mmol/L (3.5-5.1); Sodium 138 mmol/L (137-145)
[2021-11-29] MEDS ORDERED: LIDOCAINE 1% INJ 10MG/ML (30 ML VIAL-PF) SQ ONE (14:29)
[2021-11-29 14:45] LABS: Appearance,BF Cloudy; Nucleated Cells, Body Fluid 15350 /uL; RBC, Body Fluid 14700 /uL
[2021-11-29 14:48] LABS: Mononuclear WBC,Body Fluid 12 %; Polynuclear WBC,Body Fluid 88 %; Total Cells Counted,Body Fluid 100
--- NOTE | 2021-11-29 15:41 | IR ---
PICC LINE PLACEMENT: HISTORY: Infection requiring long-term antibiotic therapy PROCEDURE: Ultrasound and fluoroscopic guidance of PICC line placement. COMPLICATIONS: None ANESTHESIA: 1. 1% Lidocaine locally. FINDINGS/TECHNIQUE: The procedure was explained to the patient. The risks, complications, benefits and alternatives were discussed and any questions were answered. Informed consent was obtained. The patient was placed supine on the fluoroscopic table and prepped and draped in the usual sterile fash ion. Utilizing a 21 gauge needle and sonographic and fluoroscopic guidance, access in the vein was achieved and there is placement of a 0.018 guidewire. The vein is patent. A 5-Fr sheath was placed over the guidewire. The guidewire and dilator were removed and a 5-F. Double lumen PICC line was pl aced through the sheath with the tip at the level of the SVC. The sheath was removed, the catheter w as flushed and sutured into position. The patient was stable throughout the procedure and remained s table upon discharge from the Department of Radiology. The vein puncture was patent under ultrasound. A jaramillo scale image was obtained to document patency of the vein punctured. All elements of the maximal barrier technique were utilized. FLUOROSCOPY TIME: 0.1 mm in width and IMPRESSION: Successful PICC double lumen line placement under ultrasound and fluoroscopic guidance.
[2021-11-29] MEDS ORDERED: MVI, ADULT NO.4 WITH VIT K 10 ML, TRACE (CONC-1ML/DOSE) 1 ML in AMINO ACID 5%-D20W+LYTE... IV SCH ×3 (16:00)
[2021-11-29] MEDS ORDERED: LACTATED RINGERS 1,000 ML IV ONE ×2 (16:36→20:19)
[2021-11-29] MEDS ORDERED: ONDANSETRON 4 MG/2 ML VIAL IVP ONE (17:03)
[2021-11-29] MEDS ORDERED: DEXAMETHASONE SOD PHOSPHATE 4 MG/ML 1 ML VIAL IVP ONE (17:03)
[2021-11-29] MEDS ORDERED: MIDAZOLAM 2 MG/2 ML VIAL IVP ONE (17:04)
[2021-11-29] MEDS ORDERED: ROCURONIUM 10 MG/ML (5 ML VIAL) IV ONE (17:12)
[2021-11-29] MEDS ORDERED: fentaNYL (PF) 50 MCG/ML 2 ML AMP ONE (17:12)
[2021-11-29] MEDS ORDERED: PHENYLEPHRINE-0.9% NACL SYG 1,000 MCG/10 ML SYRINGE ONE (17:12)
[2021-11-29] MEDS ORDERED: PROPOFOL 10 MG/ML 20 ML VIAL IV ONE (17:12)
[2021-11-29] MEDS ORDERED: SUCCINYLCHOLINE CHLORIDE 200 MG/10 ML VIAL IV ONE (17:12)
[2021-11-29] MEDS ORDERED: LIDOCAINE 2% INJ 20 MG/ML (2 ML VIAL) ONE (17:12)
[2021-11-29] MEDS ORDERED: HYDROmorphone (PF) 1 MG/ML ONE (17:12)
[2021-11-29] MEDS ORDERED: LIDOCAINE 1%-EPI 1:100,000 20 ML VIAL SQ ONE (17:40)
[2021-11-29 19:52] LABS: Triglycerides 47.5 mg/dL (0.00-149.00)
[2021-11-29 20:20] LABS: Synovial Fld Crystals Seen (None Seen)
[2021-11-29] MEDS ORDERED: NALOXONE 0.4 MG/ML 1 ML VIAL IV PRN (20:21)
--- NOTE | 2021-11-29 20:24 | P.OP ---
Date of Procedure: 11/29/21 Description of Procedure: SURGEON: NACHO MONTES MD PREOPERATIVE DIAGNOSES: 1. Recurrent small bowel obstruction due to intestinal adhesions 2. Chronic pain syndrome with new right upper quadrant epigastric left upper quadrant pain 3. History of multiple abdominal surgeries 4. Obstructive uropathy due to prostate disorder 5. Hypertensive heart disease 6. Gastroesophageal reflux disease 7. Protein malnutrition, moderate due to inadequate protein oral intake 8. Biliary dyskinesia POSTOPERATIVE DIAGNOSES: 1. Recurrent small bowel obstruction due to intestinal adhesions 2. Chronic pain syndrome with new right upper quadrant epigastric left upper quadrant pain 3. History of multiple abdominal surgeries 4. Obstructive uropathy due to prostate disorder 5. Hypertensive heart disease 6. Gastroesophageal reflux disease 7. Protein malnutrition, moderate due to inadequate protein oral intake 8. Closed loop obstruction due to retroperitoneal adhesion, epigastrium 9. Small bowel volvulus, left upper quadrant 10. Biliary dyskinesia OPERATION: 1. Robotic-assisted da Shadia Xi laparoscopic extensive lysis of adhesions over 1.5 hrs 2. Robotic-assisted da Shadia Xi laparoscopic reduction of small bowel volvulus intake of internal hernia 3. Decompressive enterotomy for bowel obstruction distal jejunum COMPLICATIONS: None. Anesthesia: GETA, local Estimated Blood Loss (ml): 10 Pathology: none sent Condition: stable Disposition: same day OPERATIVE FINDINGS: 1. Closed loop obstruction along retroperitoneum of epigastrium involving mid jejunum, lysed 2. New retroperitoneal adhesion involving right lower quadrant, transverse mesocolon to retroperitoneum with internal hernia 3. Decompressive enterotomy at distal jejunum for closed loop obstruction. 4. Small bowel without ischemia or necrosis INDICATIONS: The patient is a 66-year-old male who is 2 weeks status post lysis of adhesions. Patient presented with right upper quadrant abdominal pain the concern for cholecystitis. Patient developed obstructive symptoms were abdominal films were consistent with mechanical bowel obstruction. Despite conservative management, symptoms continued despite resolution of abdominal pain with nasogastric tube decompression. Robotic assisted laparoscopic approach was described. Benefits and risks of the procedure including but not limited to bleeding, infection, injury to the small bowel was described. Informed consent was obtained. DESCRIPTION OF PROCEDURE: Patient was brought to the operating room, placed in supine position. After general induction, the abdomen had been prepped and draped in standard sterile fashion. The robotic da Shadia XI system was primed. After a timeout protocol was performed, the patient had been prepped and draped in standard sterile fashion. The robot was docked along the right lateral abdomen. A 5 mm 0 degrees laparosco pic trocar entry was performed along the left upper quadrant then upsized to a 12 mm trocar. The abdomen was insufflated to 15 mmHg pressure which he tolerated well. Diagnostic laparoscopy demonstrated moderate small bowel distention of the midabdomen. No recurrent anterior abdominal wall adhesions were identified. The stomach was completely decompressed with nasogastric tube. Next, four 8 mm robotic ports were placed along the right lateral abdomen. Please note that the ports were placed at least 8 cm away from the target anatomy. Instruments were interchanged using 4 ports for a grasper, vessel sealer, and scissors with cautery. Instruments were interchanged by the hotel assistant manager. I had sat at the console. Investigation of small bowel started at the ileocolic anastomosis where re troperitoneal adhesions causing an internal hernia from the transverse mesocolon to the right lower quadrant was identified which was new from his surgery 2 weeks ago. The small bowel was investigated proximally where due to the severe distention over 5 cm, a pursestring suture of 3-0 silk was made at the distal jejunum of the anterior serosa. Using hook artery and robotic suction device, the small bowel was decompressed proximally and distally to allow for further investigation of the intestine. The transverse mesocolon was densely adhered to the retroperitoneum at the epigastrium consistent with the patient's area of pain. The ligament of Treitz was identified and carefully investigated distally where small bowel volvulus cause from internal hernia involving transverse mesocolon and an adhesive band to the mid to distal jejunum was identified. The adhesive band was lysed. The small bowel was adherent in the interloop adhesion causing another foci of obstruction. Interloop adhesions were lysed. The small bowel was again investigated from the ligament of Treitz distally to the ileocolic anastomosis. No further adhesions were identified. Intra-abdominal ascites was aspirated using robotic suction device. Extensive lysis of adhesions over 1.5 hours was performed. The enterotomy was closed using robotic stapler blue load 30 mm 2. The 12 mm trocar sites were closed using 0 Vicryl and Ricci Jauregui. The robot was undocked. All pneumoperitoneum and instruments were evacuated from the abdominal cavity. The incisions were reapproximated using 4-0 Monocryl in an interrupted subcuticular fashion. Please note along the trocar sites, local anesthetic was placed as a field block prior to insertion of all instruments. Liquid glue was applied to the skin. At the end of the procedure needle, sponge, and instrument count had been verified correct by the surgical services coordinator. A Baxter catheter was placed at the end of the case due to patient's pre-existing prostate disorder with immediate over 300 mL urine obtained. The patient was transferred to postanesthesia care unit in stable condition. The patient's daughter Lilo was notified by telephone regarding intraoperative findings and patient's postoperative recovery.
[2021-11-29] MEDS ORDERED: HYDROmorphone 0.5 MG/0.5 ML SYRINGE IVP ONE ×2 (20:30→20:55)
[2021-11-29] MEDS: ENOXAPARIN 30 MG/0.3 ML SYRINGE SQ SCH (22:08)
[2021-11-29] MEDS: TAMSULOSIN 0.4 MG CAP.ER.24H PO SCH (22:09)
[2021-11-29] MEDS: FINASTERIDE 5 MG TAB PO SCH (22:09)
[2021-11-29] MEDS: ACETAMINOPHEN IV (For NPO) 1,000 MG in EMPTY BAG 1 BAG IVPB SCH (22:13)
[2021-11-29] MEDS ORDERED: METOCLOPRAMIDE 5 MG/ML 2 ML VIAL ONE (23:55)
[2021-11-30] MEDS ORDERED: HYDROmorphone 1 MG/ML 1 ML SYRINGE ONE (02:26)
[2021-11-30 05:35] LABS: HCT 37.1 % (39.0-53.0); HGB 12.3 gm/dL (13.0-17.5); Hypochromasia Slight; MCH 28.8 pg (25.0-35.0); MCV 87.2 fL (80.0-100.0); Mean Platelet Volume 9.2; Platelet Count 141 k/uL (150-450); RBC 4.26 m/uL (4.30-5.90); RDW 14.7 % (11.5-15.5); WBC 8.2 k/uL (3.8-10.6)
[2021-11-30 05:47] LABS: ALT 23 U/L (4-49); AST 23 U/L (17-59); African American GFR (CKD) 88 (>60 ml/min/1.73 sqM); Albumin 2.7 g/dL (3.5-5.0); Alkaline Phosphatase 89 U/L (38-126); Anion Gap 8 mmol/L; Blood Urea Nitrogen 15 mg/dL (9-20); Carbon Dioxide 23 mmol/L (22-30); Chloride 106 mmol/L (98-107); Globulin 2.7 g/dL; Glucose 171 mg/dL (74-99); Non-African American GFR(CKD) 76 (>60 ml/min/1.73 sqM); Potassium 4.1 mmol/L (3.5-5.1); Sodium 137 mmol/L (137-145); Total Bilirubin 0.8 mg/dL (0.2-1.3); Total Protein 5.4 g/dL (6.3-8.2)
[2021-11-30 05:48] LABS: Magnesium 1.9 mg/dL (1.6-2.3)
[2021-11-30] MEDS: PIPERACILLIN-TAZOBACTAM 3.375 GM in SODIUM CHLORIDE 0.9% 100 ML IVPB SCH ×4 (05:58→23:38)
[2021-11-30] MEDS: SIMETHICONE 40 MG/0.6 ML DROPS 2,000 MG/30 ML BOTTLE PO SCH ×5 (05:58→20:49)
[2021-11-30] MEDS: METOCLOPRAMIDE 5 MG/ML 2 ML VIAL IVP SCH ×5 (05:58→23:38)
[2021-11-30 06:03] LABS: Glucose,Whole Blood 186 mg/dL (70-110)
[2021-11-30] MEDS: ACETAMINOPHEN IV (For NPO) 1,000 MG in EMPTY BAG 1 BAG IVPB SCH ×3 (06:05→15:37)
[2021-11-30] MEDS: HYDROmorphone 1 MG/ML 1 ML SYRINGE IVP PRN ×5 (06:10→23:38)
[2021-11-30] MEDS ORDERED: FAT EMULSION 20% 500 ML in EMPTY BAG 1 BAG IV SCH (09:00)
[2021-11-30] MEDS: FERROUS SULFATE 325 MG TAB PO SCH (10:14)
[2021-11-30] MEDS: SODIUM CHLORIDE 0.9% 1,000 ML IV SCH ×2 (10:14→14:56)
[2021-11-30] MEDS: amLODIPine 5 MG TAB PO SCH (10:14)
[2021-11-30] MEDS: CYANOCOBALAMIN 500 MCG TAB PO SCH (10:14)
[2021-11-30] MEDS: PANTOPRAZOLE 40 MG TABLET PO SCH (10:14)
[2021-11-30] MEDS ORDERED: TAMSULOSIN 0.4 MG CAP.ER.24H PO STA (11:22)
[2021-11-30 11:51] LABS: Glucose,Whole Blood 167 mg/dL (70-110)
--- NOTE | 2021-11-30 15:10 | P.PN ---
Subjective Progress Note Date: 11/30/21 Principal diagnosis: Left knee effusion. Left knee pain. Bowel obstruction. This is a 66-year-old male who we are following regarding his left knee effusion. The left knee was aspirated yesterday obtain approximately 80 cc of cloudy yellow fluid. The fluid was sent to the lab for analysis. Cell count reveals white blood cells 13,530. Positive for calcium oxalate crystals. He has Plan afebrile. He states that his knee is feeling better today. Objective - Vital Signs Vital signs: Vital Signs Temp 98.4 F 11/30/21 11:06 Pulse 54 L 11/30/21 11:06 Resp 18 11/30/21 11:06 BP 110/67 11/30/21 11:06 Pulse Ox 97 11/30/21 11:06 FiO2 Intake & Output 11/29/21 11/30/21 11/30/21 18:59 06:59 18:59 Intake Total 1000 150 Output Total 660 Balance 1000 -510 Weight 101.151 kg 101.151 kg Intake: IV 1000 150 Output: Gastric Drainage 0 Urine 650 Estimated Blood Loss 10 Other: Voiding Method Urinal Indwelling Catheter - Exam This is a pleasant 66-year-old male in no acute distress. He is alert and oriented 3. Exam of the left lower extremity reveals that his knee swelling is improved. Minimal tenderness with palpation to the knee. He has improved range of motion of the knee. Neurovascular status to the lower extremity is intact. - Labs CBC & Chem 7: 11/30/21 05:06 11/30/21 05:06 Labs: Abnormal Lab Results - Last 24 Hours (Table) 11/29/21 11/30/21 11/30/21 Range/Units 11:20 05:06 05:06 RBC 4.26 L (4.30-5.90) m/uL Hgb 12.3 L (13.0-17.5) gm/dL Hct 37.1 L (39.0-53.0) % Plt Count 141 L (150-450) k/uL Glucose 171 H (74-99) mg/dL POC Glucose (mg/dL) (70-110) mg/dL Calcium 8.0 L (8.4-10.2) mg/dL Total Protein 5.4 L (6.3-8.2) g/dL Albumin 2.7 L (3.5-5.0) g/dL Synovial Crystals Seen A (None Seen) 11/30/21 11/30/21 Range/Units 06:01 11:50 RBC (4.30-5.90) m/uL Hgb (13.0-17.5) gm/dL Hct (39.0-53.0) % Plt Count (150-450) k/uL Glucose (74-99) mg/dL POC Glucose (mg/dL) 186 H 167 H (70-110) mg/dL Calcium (8.4-10.2) mg/dL Total Protein (6.3-8.2) g/dL Albumin (3.5-5.0) g/dL Synovial Crystals (None Seen) Microbiology - Last 24 Hours (Table) 11/29/21 11:20 Gram Stain - Preliminary Aspirate Body Fluid Culture - Preliminary 11/25/21 22:05 Blood Culture - Preliminary Blood No Growth after 96 hours 11/25/21 21:50 Blood Culture - Preliminary Blood No Growth after 96 hours Assessment and Plan (1) Primary localized osteoarthritis of left knee Current Visit: Yes Status: Acute Code(s): M17.12 - UNILATERAL PRIMARY OSTEOARTHRITIS, LEFT KNEE SNOMED Code(s): 967531899802740 (2) Effusion of left knee Current Visit: Yes Status: Acute Code(s): M25.462 - EFFUSION, LEFT KNEE SNOMED Code(s): [id number] (3) Small bowel obstruction Current Visit: Yes Status: Acute Code(s): K56.609 - UNSP INTESTNL OBST, UNSP TO PARTIAL VERSUS COMPLETE OBST SNOMED Code(s): 784649756 Plan: The clinical findings are discussed the patient. We reviewed his fluid analysis report. The patient was given a steroid injection at the time of the aspiration. This should help improve his symptoms. It is recommended he follow-up with his primary care physician for further management of his pseudogout. We will be happy to see him any time if he needs further orthopedic evaluation.
--- NOTE | 2021-11-30 15:14 | P.PN ---
Subjective Progress Note Date: 11/30/21 CHIEF COMPLAINT: SBO HISTORY OF PRESENT ILLNESS: Patient is postop day #1 status post robotic- assisted laparoscopic extensive lysis of adhesions, reduction of small bowel volvulus intake of internal hernia and decompressive enterotomy of bowel obstruction distal jejunum for Recurrent small bowel obstruction due to intestinal adhesions and small bowel volvulus. Patient has had no sniffing output through NG tube. Patient reports his abdomen is softer. Still denies any flatus or bowel movement. He reports his pain is improved. He denies any nausea. Afebrile. White count 8.2 hemoglobin 12.3 platelets 140 sodium is 137 potassium is 4.1 creatinine 1.03. Patient also seen by orthopedic service for left knee effusion status post aspiration of the fluid. PHYSICAL EXAM: VITAL SIGNS: Reviewed GENERAL: Well-developed in no acute distress. HEENT: No sclera icterus. Extraocular movements grossly intact. Moist buccal mucosa. Head is atraumatic, normocephalic. Hears conversational speech. No nasal drainage. NECK: Supple without lymphadenopathy. CHEST: Non-labored respirations and equal bilateral excursions. CARDIOVASCULAR: Palpable 2+ radial pulses. ABDOMEN: Soft. Decreased abdominal distention. Decreased tenderness to palpation of the upper mid abdomen NEUROLOGIC: No focal or lateralizing signs. Cranial nerves II through XII grossly intact. PSYCH: Appropriate affect. Alert and oriented to person, place and time. SKIN: Well perfused. Good skin turgor. ASSESSMENT: 1. Recurrent small bowel obstruction due to intestinal adhesions 2. Chronic pain syndrome with new right upper quadrant epigastric left upper quadrant pain 3. History of multiple abdominal surgeries 4. Obstructive uropathy due to prostate disorder 5. Hypertensive heart disease 6. Gastroesophageal reflux disease 7. Protein malnutrition, moderate due to inadequate protein oral intake 8. Closed loop obstruction due to retroperitoneal adhesion, epigastrium 9. Small bowel volvulus, left upper quadrant 10. Biliary dyskinesia PLAN: -Discontinue NG tube -Keep patient nothing by mouth except for ice chips and popsicles -Continue TPN for nutrition support -Encourage patient to ambulate -Consult PT OT to help with ambulation -Give 1 dose of Flomax and then discontinue Baxter catheter -Continue current pain medication -GI prophylaxis Protonix and DVT prophylaxis Lovenox Physician Service Or Work Dispatcher note has been reviewed by physician. Signing provider agrees with the documented findings, assessment, and plan of care. Objective - Vital Signs Vital signs: Vital Signs Temp 98.4 F 11/30/21 11:06 Pulse 54 L 11/30/21 11:06 Resp 18 11/30/21 11:06 BP 110/67 11/30/21 11:06 Pulse Ox 97 11/30/21 11:06 FiO2 Intake & Output 11/29/21 11/30/21 11/30/21 18:59 06:59 18:59 Intake Total 1000 150 Output Total 660 Balance 1000 -510 Weight 101.151 kg 101.151 kg Intake: IV 1000 150 Output: Gastric Drainage 0 Urine 650 Estimated Blood Loss 10 Other: Voiding Method Urinal Indwelling Catheter - Labs CBC & Chem 7: 11/30/21 05:06 11/30/21 05:06 Labs: Abnormal Lab Results - Last 24 Hours (Table) 11/29/21 11/30/21 11/30/21 Range/Units 11:20 05:06 05:06 RBC 4.26 L (4.30-5.90) m/uL Hgb 12.3 L (13.0-17.5) gm/dL Hct 37.1 L (39.0-53.0) % Plt Count 141 L (150-450) k/uL Glucose 171 H (74-99) mg/dL POC Glucose (mg/dL) (70-110) mg/dL Calcium 8.0 L (8.4-10.2) mg/dL Total Protein 5.4 L (6.3-8.2) g/dL Albumin 2.7 L (3.5-5.0) g/dL Synovial Crystals Seen A (None Seen) 11/30/21 11/30/21 Range/Units 06:01 11:50 RBC (4.30-5.90) m/uL Hgb (13.0-17.5) gm/dL Hct (39.0-53.0) % Plt Count (150-450) k/uL Glucose (74-99) mg/dL POC Glucose (mg/dL) 186 H 167 H (70-110) mg/dL Calcium (8.4-10.2) mg/dL Total Protein (6.3-8.2) g/dL Albumin (3.5-5.0) g/dL Synovial Crystals (None Seen) Microbiology - Last 24 Hours (Table) 11/29/21 11:20 Gram Stain - Preliminary Aspirate Body Fluid Culture - Preliminary 11/25/21 22:05 Blood Culture - Preliminary Blood No Growth after 96 hours 11/25/21 21:50 Blood Culture - Preliminary Blood No Growth after 96 hours
[2021-11-30 16:58] LABS: Glucose,Whole Blood 120 mg/dL (70-110)
[2021-11-30] MEDS: bisacodyL 10 MG SUPP RECTAL PRN (17:28)
[2021-11-30] MEDS: TAMSULOSIN 0.4 MG CAP.ER.24H PO SCH (20:19)
[2021-11-30] MEDS: ENOXAPARIN 30 MG/0.3 ML SYRINGE SQ SCH (20:19)
[2021-11-30] MEDS: FINASTERIDE 5 MG TAB PO SCH (20:19)
[2021-11-30] MEDS: ZOLPIDEM 5 MG TAB PO PRN (22:23)
--- NOTE | 2021-12-01 00:28 | P.PN ---
Subjective Progress Note Date: 11/30/21 Principal diagnosis: SBO and lysis of adhesions Knee pain with pseudogout This is a continue progress on a 66-year-old black male who is postop day #1 robotic lysis of adhesions secondary to small bowel obstruction. Multiple surgeries in the past. Left knee noted to be [id number]. Orthopedics evaluation was done. The patient had aspiration with steroids and has element of pseudogout. Objective - Vital Signs Vital signs: Vital Signs Temp 98.1 F 11/30/21 19:57 Pulse 61 11/30/21 19:57 Resp 16 11/30/21 20:00 BP 146/83 11/30/21 19:57 Pulse Ox 98 11/30/21 19:57 FiO2 Intake & Output 11/30/21 11/30/21 12/01/21 06:59 18:59 06:59 Intake Total 150 400 Output Total 660 Balance -510 400 Weight 101.151 kg Intake: IV 150 Intake, IV Titration 400 Amount ACETAMINOPHEN IV (For NPO 200 ) 1,000 mg In Empty Bag 1 bag @ 400 mls/hr IVPB Q6H [facility] Rx#:[id number] Piperacillin-Tazobactam 3 200 .375 gm In Sodium Chloride 0.9% 100 ml @ 25 mls/hr IVPB Q8HR [facility] Rx# :[id number] Output: Gastric Drainage 0 Urine 650 Estimated Blood Loss 10 Other: Voiding Method Indwelling Catheter Toilet # Voids 1 2 - Constitutional General appearance: Present: no acute distress - Neck Neck: Absent: lymphadenopathy - Cardiovascular Rhythm: regular Heart sounds: normal: S1, S2 Abnormal Heart Sounds: Absent: S3 Gallop - Gastrointestinal General gastrointestinal: Present: soft. Absent: tenderness - Psychiatric Psychiatric: Present: A&O x's 3 - Labs CBC & Chem 7: 11/30/21 05:06 11/30/21 05:06 Labs: Abnormal Lab Results - Last 24 Hours (Table) 11/30/21 11/30/21 11/30/21 Range/Units 05:06 05:06 06:01 RBC 4.26 L (4.30-5.90) m/uL Hgb 12.3 L (13.0-17.5) gm/dL Hct 37.1 L (39.0-53.0) % Plt Count 141 L (150-450) k/uL Glucose 171 H (74-99) mg/dL POC Glucose (mg/dL) 186 H (70-110) mg/dL Calcium 8.0 L (8.4-10.2) mg/dL Total Protein 5.4 L (6.3-8.2) g/dL Albumin 2.7 L (3.5-5.0) g/dL 11/30/21 11/30/21 Range/Units 11:50 16:57 RBC (4.30-5.90) m/uL Hgb (13.0-17.5) gm/dL Hct (39.0-53.0) % Plt Count (150-450) k/uL Glucose (74-99) mg/dL POC Glucose (mg/dL) 167 H 120 H (70-110) mg/dL Calcium (8.4-10.2) mg/dL Total Protein (6.3-8.2) g/dL Albumin (3.5-5.0) g/dL Microbiology - Last 24 Hours (Table) 11/29/21 11:20 Gram Stain - Preliminary Aspirate Body Fluid Culture - Preliminary 11/25/21 22:05 Blood Culture - Preliminary Blood No Growth after 96 hours 11/25/21 21:50 Blood Culture - Preliminary Blood No Growth after 96 hours Assessment and Plan (1) Small bowel obstruction Current Visit: Yes Status: Acute Code(s): K56.609 - UNSP INTESTNL OBST, UNSP TO PARTIAL VERSUS COMPLETE OBST SNOMED Code(s): 245461721 (2) Chronic pain syndrome Current Visit: No Status: Acute Code(s): G89.4 - CHRONIC PAIN SYNDROME SNOMED Code(s): 458847579 (3) DDD (degenerative disc disease), lumbar Current Visit: No Status: Acute Code(s): M51.36 - OTHER INTERVERTEBRAL DISC DEGENERATION, LUMBAR REGION SNOMED Code(s): 92858157 (4) Low back pain Current Visit: No Status: Acute Code(s): M54.5 - LOW BACK PAIN * DO NOT USE * SNOMED Code(s): 852534096 (5) Lumbar facet arthropathy Current Visit: No Status: Acute Code(s): M47.816 - SPONDYLOSIS W/O MYELOPATHY OR RADICULOPATHY, LUMBAR REGION SNOMED Code(s): 848142276 Plan: We will go ahead and continue to follow during this hospitalization. Await postop treatment. Check CBC and CMP in a.m. GI prophylaxis. Appreciate orthopedic input. we will continue to follow with general surgery. Time with Patient: Less than 30
--- NOTE | 2021-12-01 00:28 | P.PN ---
Subjective Progress Note Date: 11/30/21 Principal diagnosis: SBO and lysis of adhesions Knee pain with pseudogout This is a continue progress on a 66-year-old black male who is postop day #1 robotic lysis of adhesions secondary to small bowel obstruction. Multiple surgeries in the past. Left knee noted to be [id number]. Orthopedics evaluation was done. The patient had aspiration with steroids and has element of pseudogout. Objective - Vital Signs Vital signs: Vital Signs Temp 98.1 F 11/30/21 19:57 Pulse 61 11/30/21 19:57 Resp 16 11/30/21 20:00 BP 146/83 11/30/21 19:57 Pulse Ox 98 11/30/21 19:57 FiO2 Intake & Output 11/30/21 11/30/21 12/01/21 06:59 18:59 06:59 Intake Total 150 400 Output Total 660 Balance -510 400 Weight 101.151 kg Intake: IV 150 Intake, IV Titration 400 Amount ACETAMINOPHEN IV (For NPO 200 ) 1,000 mg In Empty Bag 1 bag @ 400 mls/hr IVPB Q6H [facility] Rx#:[id number] Piperacillin-Tazobactam 3 200 .375 gm In Sodium Chloride 0.9% 100 ml @ 25 mls/hr IVPB Q8HR [facility] Rx# :[id number] Output: Gastric Drainage 0 Urine 650 Estimated Blood Loss 10 Other: Voiding Method Indwelling Catheter Toilet # Voids 1 2 - Constitutional General appearance: Present: no acute distress - Neck Neck: Absent: lymphadenopathy - Cardiovascular Rhythm: regular Heart sounds: normal: S1, S2 Abnormal Heart Sounds: Absent: S3 Gallop - Gastrointestinal General gastrointestinal: Present: soft. Absent: tenderness - Psychiatric Psychiatric: Present: A&O x's 3 - Labs CBC & Chem 7: 11/30/21 05:06 11/30/21 05:06 Labs: Abnormal Lab Results - Last 24 Hours (Table) 11/30/21 11/30/21 11/30/21 Range/Units 05:06 05:06 06:01 RBC 4.26 L (4.30-5.90) m/uL Hgb 12.3 L (13.0-17.5) gm/dL Hct 37.1 L (39.0-53.0) % Plt Count 141 L (150-450) k/uL Glucose 171 H (74-99) mg/dL POC Glucose (mg/dL) 186 H (70-110) mg/dL Calcium 8.0 L (8.4-10.2) mg/dL Total Protein 5.4 L (6.3-8.2) g/dL Albumin 2.7 L (3.5-5.0) g/dL 11/30/21 11/30/21 Range/Units 11:50 16:57 RBC (4.30-5.90) m/uL Hgb (13.0-17.5) gm/dL Hct (39.0-53.0) % Plt Count (150-450) k/uL Glucose (74-99) mg/dL POC Glucose (mg/dL) 167 H 120 H (70-110) mg/dL Calcium (8.4-10.2) mg/dL Total Protein (6.3-8.2) g/dL Albumin (3.5-5.0) g/dL Microbiology - Last 24 Hours (Table) 11/29/21 11:20 Gram Stain - Preliminary Aspirate Body Fluid Culture - Preliminary 11/25/21 22:05 Blood Culture - Preliminary Blood No Growth after 96 hours 11/25/21 21:50 Blood Culture - Preliminary Blood No Growth after 96 hours Assessment and Plan (1) Small bowel obstruction Current Visit: Yes Status: Acute Code(s): K56.609 - UNSP INTESTNL OBST, UNSP TO PARTIAL VERSUS COMPLETE OBST SNOMED Code(s): 373938867 (2) Chronic pain syndrome Current Visit: No Status: Acute Code(s): G89.4 - CHRONIC PAIN SYNDROME SNOMED Code(s): 796614335 (3) DDD (degenerative disc disease), lumbar Current Visit: No Status: Acute Code(s): M51.36 - OTHER INTERVERTEBRAL DISC DEGENERATION, LUMBAR REGION SNOMED Code(s): 39773625 (4) Low back pain Current Visit: No Status: Acute Code(s): M54.5 - LOW BACK PAIN * DO NOT USE * SNOMED Code(s): 551601932 (5) Lumbar facet arthropathy Current Visit: No Status: Acute Code(s): M47.816 - SPONDYLOSIS W/O MYELOPATHY OR RADICULOPATHY, LUMBAR REGION SNOMED Code(s): 666154753 Plan: We will go ahead and continue to follow during this hospitalization. Await postop treatment. Check CBC and CMP in a.m. GI prophylaxis. Appreciate orthopedic input. we will continue to follow with general surgery. Time with Patient: Less than 30
[2021-12-01] MEDS: HYDROmorphone 1 MG/ML 1 ML SYRINGE IVP PRN ×3 (05:01→23:36)
[2021-12-01] MEDS: METOCLOPRAMIDE 5 MG/ML 2 ML VIAL IVP SCH ×4 (05:02→23:35)
[2021-12-01 05:12] LABS: Glucose,Whole Blood 108 mg/dL (70-110)
[2021-12-01] MEDS: 1: MVI, ADULT NO.4 WITH VIT K 10 ML, TRACE (CONC-1ML/DOSE) 1 ML in AMINO ACID 5%-D20W+LY IV SCH ×9 (05:21→22:03)
[2021-12-01] MEDS: SODIUM CHLORIDE 0.9% 1,000 ML IV SCH ×2 (05:27→17:17)
[2021-12-01] MEDS: bisacodyL 10 MG SUPP RECTAL PRN (05:47)
[2021-12-01 05:58] LABS: African American GFR (CKD) >90 (>60 ml/min/1.73 sqM); Anion Gap 6 mmol/L; Blood Urea Nitrogen 12 mg/dL (9-20); Carbon Dioxide 25 mmol/L (22-30); Chloride 106 mmol/L (98-107); Glucose 132 mg/dL (74-99); Magnesium 1.9 mg/dL (1.6-2.3); Non-African American GFR(CKD) 82 (>60 ml/min/1.73 sqM); Phosphorus 2.8 mg/dL (2.5-4.5); Potassium 3.8 mmol/L (3.5-5.1); Sodium 137 mmol/L (137-145)
[2021-12-01] MEDS: FERROUS SULFATE 325 MG TAB PO SCH (08:09)
[2021-12-01] MEDS: SIMETHICONE 40 MG/0.6 ML DROPS 2,000 MG/30 ML BOTTLE PO SCH ×4 (08:09→20:18)
[2021-12-01] MEDS: CYANOCOBALAMIN 500 MCG TAB PO SCH (08:09)
[2021-12-01] MEDS: amLODIPine 5 MG TAB PO SCH (08:09)
[2021-12-01] MEDS: PANTOPRAZOLE 40 MG TABLET PO SCH (08:09)
[2021-12-01] MEDS: PIPERACILLIN-TAZOBACTAM 3.375 GM in SODIUM CHLORIDE 0.9% 100 ML IVPB SCH ×3 (08:10→23:35)
--- NOTE | 2021-12-01 09:20 | P.PN ---
Subjective Progress Note Date: 12/01/21 Principal diagnosis: Small bowel obstruction Patient doing well today. He would like to go home. Unfortunately the patient only had a small smear with no flatus. Still feels somewhat bloated. He is tolerating clear liquids. Objective - Vital Signs Vital signs: Vital Signs Temp 98.5 F 12/01/21 07:44 Pulse 63 12/01/21 07:44 Resp 16 12/01/21 05:00 BP 123/74 12/01/21 07:44 Pulse Ox 98 12/01/21 05:00 FiO2 Intake & Output 11/30/21 12/01/21 12/01/21 18:59 06:59 18:59 Intake Total 400 Output Total 3 Balance 400 -3 Weight 101.151 kg Intake: Intake, IV Titration 400 Amount ACETAMINOPHEN IV (For NPO 200 ) 1,000 mg In Empty Bag 1 bag @ 400 mls/hr IVPB Q6H [facility] Rx#:[id number] Piperacillin-Tazobactam 3 200 .375 gm In Sodium Chloride 0.9% 100 ml @ 25 mls/hr IVPB Q8HR [facility] Rx# :[id number] Output: Urine 3 Stool 0 Other: Voiding Method Toilet # Voids 1 2 # Bowel Movements 0 - Exam Abdomen: Soft, mild distention, incisions clean and dry - Labs CBC & Chem 7: 11/30/21 05:06 12/01/21 04:49 Labs: Abnormal Lab Results - Last 24 Hours (Table) 11/30/21 11/30/21 12/01/21 Range/Units 11:50 16:57 04:49 Glucose 132 H (74-99) mg/dL POC Glucose (mg/dL) 167 H 120 H (70-110) mg/dL Calcium 8.0 L (8.4-10.2) mg/dL Microbiology - Last 24 Hours (Table) 11/25/21 21:50 Blood Culture - Preliminary Blood No Growth after 120 hours 11/25/21 22:05 Blood Culture - Preliminary Blood No Growth after 120 hours 11/29/21 11:20 Gram Stain - Preliminary Aspirate Body Fluid Culture - Preliminary Assessment and Plan (1) Bowel obstruction Narrative/Plan: Patient clinically improving. Continue advancing diet. Possible discharge tomorrow if bowel function improved. Current Visit: No Status: Acute Code(s): K56.609 - UNSP INTESTNL OBST, UNSP TO PARTIAL VERSUS COMPLETE OBST SNOMED Code(s): 35031184
--- NOTE | 2021-12-01 09:20 | P.PN ---
Subjective Progress Note Date: 12/01/21 Principal diagnosis: Small bowel obstruction Patient doing well today. He would like to go home. Unfortunately the patient only had a small smear with no flatus. Still feels somewhat bloated. He is tolerating clear liquids. Objective - Vital Signs Vital signs: Vital Signs Temp 98.5 F 12/01/21 07:44 Pulse 63 12/01/21 07:44 Resp 16 12/01/21 05:00 BP 123/74 12/01/21 07:44 Pulse Ox 98 12/01/21 05:00 FiO2 Intake & Output 11/30/21 12/01/21 12/01/21 18:59 06:59 18:59 Intake Total 400 Output Total 3 Balance 400 -3 Weight 101.151 kg Intake: Intake, IV Titration 400 Amount ACETAMINOPHEN IV (For NPO 200 ) 1,000 mg In Empty Bag 1 bag @ 400 mls/hr IVPB Q6H [facility] Rx#:[id number] Piperacillin-Tazobactam 3 200 .375 gm In Sodium Chloride 0.9% 100 ml @ 25 mls/hr IVPB Q8HR [facility] Rx# :[id number] Output: Urine 3 Stool 0 Other: Voiding Method Toilet # Voids 1 2 # Bowel Movements 0 - Exam Abdomen: Soft, mild distention, incisions clean and dry - Labs CBC & Chem 7: 11/30/21 05:06 12/01/21 04:49 Labs: Abnormal Lab Results - Last 24 Hours (Table) 11/30/21 11/30/21 12/01/21 Range/Units 11:50 16:57 04:49 Glucose 132 H (74-99) mg/dL POC Glucose (mg/dL) 167 H 120 H (70-110) mg/dL Calcium 8.0 L (8.4-10.2) mg/dL Microbiology - Last 24 Hours (Table) 11/25/21 21:50 Blood Culture - Preliminary Blood No Growth after 120 hours 11/25/21 22:05 Blood Culture - Preliminary Blood No Growth after 120 hours 11/29/21 11:20 Gram Stain - Preliminary Aspirate Body Fluid Culture - Preliminary Assessment and Plan (1) Bowel obstruction Narrative/Plan: Patient clinically improving. Continue advancing diet. Possible discharge tomorrow if bowel function improved. Current Visit: No Status: Acute Code(s): K56.609 - UNSP INTESTNL OBST, UNSP TO PARTIAL VERSUS COMPLETE OBST SNOMED Code(s): 98869879
[2021-12-01] MEDS: oxyCODONE-APAP 10-325MG 1 EACH TAB PO PRN (11:15)
[2021-12-01 12:02] LABS: Glucose,Whole Blood 113 mg/dL (70-110)
[2021-12-01 17:09] LABS: Glucose,Whole Blood 105 mg/dL (70-110)
[2021-12-01] MEDS: FINASTERIDE 5 MG TAB PO SCH (20:17)
[2021-12-01] MEDS: TAMSULOSIN 0.4 MG CAP.ER.24H PO SCH (20:17)
[2021-12-01] MEDS: ENOXAPARIN 30 MG/0.3 ML SYRINGE SQ SCH (20:17)
[2021-12-01] MEDS: ZOLPIDEM 5 MG TAB PO PRN (23:35)
[2021-12-02 01:40] LABS: Glucose,Whole Blood 122 mg/dL (70-110)
[2021-12-02] MEDS: METOCLOPRAMIDE 5 MG/ML 2 ML VIAL IVP SCH ×2 (05:46→11:32)
[2021-12-02 05:48] LABS: Glucose,Whole Blood 115 mg/dL (70-110)
[2021-12-02] MEDS: oxyCODONE-APAP 10-325MG 1 EACH TAB PO PRN (05:54)
[2021-12-02 06:08] VITALS: BP 125/81; PULSE 64; RESP 18; TEMP 97.9
[2021-12-02 07:35] LABS: African American GFR (CKD) >90 (>60 ml/min/1.73 sqM); Anion Gap 7 mmol/L; Blood Urea Nitrogen 17 mg/dL (9-20); Carbon Dioxide 24 mmol/L (22-30); Chloride 106 mmol/L (98-107); Glucose 122 mg/dL (74-99); Magnesium 1.8 mg/dL (1.6-2.3); Non-African American GFR(CKD) 80 (>60 ml/min/1.73 sqM); Phosphorus 3.5 mg/dL (2.5-4.5); Potassium 3.6 mmol/L (3.5-5.1); Sodium 137 mmol/L (137-145)
[2021-12-02] MEDS: CYANOCOBALAMIN 500 MCG TAB PO SCH (08:09)
[2021-12-02] MEDS: amLODIPine 5 MG TAB PO SCH (08:09)
[2021-12-02] MEDS: PANTOPRAZOLE 40 MG TABLET PO SCH (08:09)
[2021-12-02] MEDS: FERROUS SULFATE 325 MG TAB PO SCH (08:10)
[2021-12-02] MEDS: PIPERACILLIN-TAZOBACTAM 3.375 GM in SODIUM CHLORIDE 0.9% 100 ML IVPB SCH (08:10)
[2021-12-02] MEDS: 1: MVI, ADULT NO.4 WITH VIT K 10 ML, TRACE (CONC-1ML/DOSE) 1 ML in AMINO ACID 5%-D20W+LY IV SCH ×3 (08:11)
[2021-12-02] MEDS: SIMETHICONE 40 MG/0.6 ML DROPS 2,000 MG/30 ML BOTTLE PO SCH (08:12)
[2021-12-02] MEDS: SODIUM CHLORIDE 0.9% 1,000 ML IV SCH (08:17)
--- NOTE | 2021-12-02 11:03 | P.DS ---
Providers Date of admission: 11/25/21 21:04 Expected date of discharge: 12/02/21 Attending physician: Lizet Steele Consults: 11/28/21 09:25 Consult Physician Routine Consulting Provider: Shaun Wang Consult Reason/Comments: Medical management Do you want consulting provider notified?: Yes 11/29/21 08:06 Consult Physician Routine Consulting Provider: Gian Jerome Consult Reason/Comments: Left gastrocnemius cyst Do you want consulting provider notified?: Yes Primary care physician: Shaun Wang - Discharge Diagnosis(es) (1) Bowel obstruction 66-year-old male admitted 7 days ago for bowel obstruction. 3 days ago the patient underwent laparoscopic lysis of adhesions. He is doing well at this time. Passing flatus. Small bowel movement yesterday. His tolerating his diet. He would like to go home. Incisions are clean dry. Abdomen is soft with minimal tenderness, no significant distention. We'll discharge home at this time. Follow with Dr. Cantor next week. Current Visit: No Status: Acute Patient Condition at Discharge: Stable Plan - Discharge Summary Discharge Rx Participant: No New Discharge Prescriptions: No Action oxyCODONE-APAP 10-325MG [Percocet 10-325 mg] 1 tab PO QID PRN PRN Reason: Pain carisoprodoL [Soma] 350 mg PO QID PRN PRN Reason: Pain Multivitamin [Men's Multi-Vitamin] 1 tab PO DAILY Cetirizine HCl [Zyrtec] 10 mg PO BID PRN PRN Reason: Allergy Symptoms Dutasteride [Avodart] 0.5 mg PO HS Pantoprazole Sodium [Protonix] 40 mg PO DAILY Iron Tab 27 mg PO DAILY Tamsulosin [Flomax] 0.8 mg PO HS tadalafiL [Cialis] 5 mg PO DAILY PRN PRN Reason: E.D. Acetaminophen Tab [Tylenol] 1,000 mg PO Q6HR PRN #30 tablet PRN Reason: Pain Zolpidem [Ambien] 10 mg PO HS PRN PRN Reason: Insomnia Naproxen 500 mg PO BID PRN PRN Reason: Pain Cyanocobalamin (Vitamin B-12) [Vitamin B-12] 1,000 mcg PO DAILY Metoclopramide [Reglan] 10 mg PO ACHS #20 tab amLODIPine [Norvasc] 5 mg PO DAILY Meloxicam [Mobic] 7.5 - 15 mg PO DAILY PRN PRN Reason: Pain Discharge Medication List oxyCODONE-APAP 10-325MG [Percocet 10-325 mg] 1 tab PO QID PRN 05/31/14 [History] carisoprodoL [Soma] 350 mg PO QID PRN 07/04/16 [History] Multivitamin [Men's Multi-Vitamin] 1 tab PO DAILY 10/14/16 [History] Cetirizine HCl [Zyrtec] 10 mg PO BID PRN 01/15/18 [History] Dutasteride [Avodart] 0.5 mg PO HS 03/16/20 [History] Iron Tab 27 mg PO DAILY 03/16/20 [History] Pantoprazole Sodium [Protonix] 40 mg PO DAILY 03/16/20 [History] Tamsulosin [Flomax] 0.8 mg PO HS 03/29/20 [History] tadalafiL [Cialis] 5 mg PO DAILY PRN 03/29/20 [History] Acetaminophen Tab [Tylenol] 1,000 mg PO Q6HR PRN #30 tablet 10/30/20 [Rx] Zolpidem [Ambien] 10 mg PO HS PRN 11/19/20 [History] Cyanocobalamin (Vitamin B-12) [Vitamin B-12] 1,000 mcg PO DAILY 01/04/21 [History] Naproxen 500 mg PO BID PRN 01/04/21 [History] amLODIPine [Norvasc] 5 mg PO DAILY 01/04/21 [History] Meloxicam [Mobic] 7.5 - 15 mg PO DAILY PRN 07/31/21 [History] Metoclopramide [Reglan] 10 mg PO ACHS #20 tab 11/21/21 [Rx] Follow up Appointment(s)/Referral(s): Shaun Wang MD [Primary Care Provider] - 1-2 days
--- NOTE | 2021-12-02 11:45 | P.PN ---
Subjective Progress Note Date: 12/02/21 Principal diagnosis: Left knee effusion. Left knee pain. Bowel obstruction. This is a 66-year-old male who we are following regarding his left knee effusion. The left knee was aspirated on 11/29/2021 obtain approximately 80 cc of cloudy yellow fluid. The fluid was sent to the lab for analysis. Cell count reveals white blood cells 13,530. Positive for calcium oxalate crystals. He has Plan afebrile. He states that his knee is feeling better today. Objective - Vital Signs Vital signs: Vital Signs Temp 97.9 F 12/02/21 05:40 Pulse 64 12/02/21 08:35 Resp 18 12/02/21 08:35 BP 125/81 12/02/21 05:40 Pulse Ox 97 12/02/21 05:40 FiO2 Intake & Output 12/01/21 12/02/21 12/02/21 18:59 06:59 18:59 Intake Total 840 Output Total 0 0 Balance 840 0 Weight 101.151 kg Intake: Intake, IV Titration 600 Amount Sodium Chloride 0.9% 1, 600 000 ml @ 75 mls/hr IV . [id number] [facility] Rx#:[id number] Oral 240 Output: Stool 0 0 Other: Voiding Method Toilet Toilet Toilet # Voids 3 1 # Bowel Movements 0 - Exam This is a pleasant 66-year-old male in no acute distress. He is alert and oriented 3. Exam of the left lower extremity reveals that his knee swelling is improved. Minimal tenderness with palpation to the knee. He has improved range of motion of the knee. Neurovascular status to the lower extremity is intact. - Labs CBC & Chem 7: 11/30/21 05:06 12/02/21 06:42 Labs: Abnormal Lab Results - Last 24 Hours (Table) 12/01/21 12/02/21 12/02/21 Range/Units 12:00 01:37 05:47 Glucose (74-99) mg/dL POC Glucose (mg/dL) 113 H 122 H 115 H (70-110) mg/dL Calcium (8.4-10.2) mg/dL 12/02/21 Range/Units 06:42 Glucose 122 H (74-99) mg/dL POC Glucose (mg/dL) (70-110) mg/dL Calcium 8.0 L (8.4-10.2) mg/dL Microbiology - Last 24 Hours (Table) 11/29/21 11:20 Gram Stain - Preliminary Aspirate Body Fluid Culture - Preliminary 11/25/21 22:05 Blood Culture - Final Blood No Growth after 144 hours 11/25/21 21:50 Blood Culture - Final Blood No Growth after 144 hours Assessment and Plan (1) Primary localized osteoarthritis of left knee Current Visit: Yes Status: Acute Code(s): M17.12 - UNILATERAL PRIMARY OSTEOARTHRITIS, LEFT KNEE SNOMED Code(s): 027333782887966 (2) Effusion of left knee Current Visit: Yes Status: Acute Code(s): M25.462 - EFFUSION, LEFT KNEE SNOMED Code(s): 710120734505264 (3) Small bowel obstruction Current Visit: Yes Status: Acute Code(s): K56.609 - UNSP INTESTNL OBST, UNSP TO PARTIAL VERSUS COMPLETE OBST SNOMED Code(s): 065175199 Plan: The clinical findings are discussed the patient. We reviewed his fluid analysis report. The patient was given a steroid injection at the time of the aspiration. This should help improve his symptoms. It is recommended he follow-up with his primary care physician for further management of his pseudogout. We will be happy to see him any time if he needs further orthopedic evaluation.
--- NOTE | 2021-12-02 11:45 | P.PN ---
Subjective Progress Note Date: 12/02/21 Principal diagnosis: Left knee effusion. Left knee pain. Bowel obstruction. This is a 66-year-old male who we are following regarding his left knee effusion. The left knee was aspirated on 11/29/2021 obtain approximately 80 cc of cloudy yellow fluid. The fluid was sent to the lab for analysis. Cell count reveals white blood cells 13,530. Positive for calcium oxalate crystals. He has Plan afebrile. He states that his knee is feeling better today. Objective - Vital Signs Vital signs: Vital Signs Temp 97.9 F 12/02/21 05:40 Pulse 64 12/02/21 08:35 Resp 18 12/02/21 08:35 BP 125/81 12/02/21 05:40 Pulse Ox 97 12/02/21 05:40 FiO2 Intake & Output 12/01/21 12/02/21 12/02/21 18:59 06:59 18:59 Intake Total 840 Output Total 0 0 Balance 840 0 Weight 101.151 kg Intake: Intake, IV Titration 600 Amount Sodium Chloride 0.9% 1, 600 000 ml @ 75 mls/hr IV . [id number] [facility] Rx#:[id number] Oral 240 Output: Stool 0 0 Other: Voiding Method Toilet Toilet Toilet # Voids 3 1 # Bowel Movements 0 - Exam This is a pleasant 66-year-old male in no acute distress. He is alert and oriented 3. Exam of the left lower extremity reveals that his knee swelling is improved. Minimal tenderness with palpation to the knee. He has improved range of motion of the knee. Neurovascular status to the lower extremity is intact. - Labs CBC & Chem 7: 11/30/21 05:06 12/02/21 06:42 Labs: Abnormal Lab Results - Last 24 Hours (Table) 12/01/21 12/02/21 12/02/21 Range/Units 12:00 01:37 05:47 Glucose (74-99) mg/dL POC Glucose (mg/dL) 113 H 122 H 115 H (70-110) mg/dL Calcium (8.4-10.2) mg/dL 12/02/21 Range/Units 06:42 Glucose 122 H (74-99) mg/dL POC Glucose (mg/dL) (70-110) mg/dL Calcium 8.0 L (8.4-10.2) mg/dL Microbiology - Last 24 Hours (Table) 11/29/21 11:20 Gram Stain - Preliminary Aspirate Body Fluid Culture - Preliminary 11/25/21 22:05 Blood Culture - Final Blood No Growth after 144 hours 11/25/21 21:50 Blood Culture - Final Blood No Growth after 144 hours Assessment and Plan (1) Primary localized osteoarthritis of left knee Current Visit: Yes Status: Acute Code(s): M17.12 - UNILATERAL PRIMARY OSTEOARTHRITIS, LEFT KNEE SNOMED Code(s): 779171849041363 (2) Effusion of left knee Current Visit: Yes Status: Acute Code(s): M25.462 - EFFUSION, LEFT KNEE SNOMED Code(s): 311169218504039 (3) Small bowel obstruction Current Visit: Yes Status: Acute Code(s): K56.609 - UNSP INTESTNL OBST, UNSP TO PARTIAL VERSUS COMPLETE OBST SNOMED Code(s): 696762724 Plan: The clinical findings are discussed the patient. We reviewed his fluid analysis report. The patient was given a steroid injection at the time of the aspiration. This should help improve his symptoms. It is recommended he follow-up with his primary care physician for further management of his pseudogout. We will be happy to see him any time if he needs further orthopedic evaluation.
== END 2021-12-02 13:29 | disposition home or self-care (01) | DRG 330 ==
LOC: EC 18:04 → 5NMEDONC 21:04
PROVIDERS: ADMIT Surgery Plastic and Reconstructive Surgery; ATTEND Surgery Plastic and Reconstructive Surgery
PROC: 0D9670Z Drainage of Stomach with Drainage Device, Via Natural or Artificial Opening (ICD-10-PCS; 2021-11-27)
PROC: 0DN84ZZ Release Small Intestine, Percutaneous Endoscopic Approach (ICD-10-PCS; 2021-11-29)
PROC: 0D788ZZ Dilation of Small Intestine, Via Natural or Artificial Opening Endoscopic (ICD-10-PCS; 2021-11-29)
PROC: 8E0W4CZ Robotic Assisted Procedure of Trunk Region, Percutaneous Endoscopic Approach (ICD-10-PCS; 2021-11-29)
PROC: 02HV33Z Insertion of Infusion Device into Superior Vena Cava, Percutaneous Approach (ICD-10-PCS; 2021-11-29)
PROC: 0S9D3ZZ Drainage of Left Knee Joint, Percutaneous Approach (ICD-10-PCS; 2021-11-29)
PROC: 0DS84ZZ Reposition Small Intestine, Percutaneous Endoscopic Approach (ICD-10-PCS; principal; 2021-11-29 12:00)
DX: K56.50 Intestinal adhesions [bands], unspecified as to partial versus complete obstruction (principal); E44.0 Moderate protein-calorie malnutrition; N17.9 Acute kidney failure, unspecified; N13.8 Other obstructive and reflux uropathy; F11.20 Opioid dependence, uncomplicated; I11.9 Hypertensive heart disease without heart failure; Z68.31 Body mass index [BMI] 31.0-31.9, adult; K56.2 Volvulus; K56.7 Ileus, unspecified; G89.4 Chronic pain syndrome; N40.1 Benign prostatic hyperplasia with lower urinary tract symptoms; K21.9 Gastro-esophageal reflux disease without esophagitis; K82.8 Other specified diseases of gallbladder; K46.9 Unspecified abdominal hernia without obstruction or gangrene; H91.91 Unspecified hearing loss, right ear; E86.0 Dehydration; M51.36 Other intervertebral disc degeneration, lumbar region; M47.816 Spondylosis without myelopathy or radiculopathy, lumbar region; M25.462 Effusion, left knee; M11.262 Other chondrocalcinosis, left knee; M17.12 Unilateral primary osteoarthritis, left knee; R79.89 Other specified abnormal findings of blood chemistry; Z96.651 Presence of right artificial knee joint; Z96.643 Presence of artificial hip joint, bilateral; Z28.310 Unvaccinated for COVID-19; Z87.19 Personal history of other diseases of the digestive system; Z79.899 Other long term (current) drug therapy; Z86.14 Personal history of Methicillin resistant Staphylococcus aureus infection
CPT/HCPCS: 36415; 36573; 71045; 74019; 74177; 76705; 78227; 80048; 80053; 81003; 82150; 82330; 83605; 83690; 83735; 84100; 84478; 85025; 85027; 85610; 85730; 87040; 87070; 87205; 89050; 89060; 93005; 96361; 96374; 96375; 96376; 99285

== ENCOUNTER 2021-12-07 01:11 | Inpatient (IN) | payer MEDICARE, OTHER ==
[2021-12-07] MEDS ORDERED: PANTOPRAZOLE 40 MG/10 ML VIAL IVP STA (01:43)
[2021-12-07] MEDS ORDERED: SODIUM CHLORIDE 0.9% 1,000 ML IV STA (01:43)
[2021-12-07] MEDS ORDERED: ONDANSETRON 4 MG/2 ML VIAL IVP STA (01:43)
[2021-12-07] MEDS ORDERED: MORPHINE SULFATE 4 MG/ML SYRINGE IVP STA ×2 (01:43→03:57)
[2021-12-07 02:13] LABS: Basophils % (A) 1 %; Eosinophils # (A) 0.5 k/uL (0-0.7); Eosinophils % (A) 7 %; HGB 12.3 gm/dL (13.0-17.5); Lymphocytes # (A) 1.5 k/uL (1.0-4.8); Lymphocytes % (A) 20 %; MCH 27.4 pg (25.0-35.0); MCHC 32.3 g/dL (31.0-37.0); Mean Platelet Volume 8.7; Monocytes # (A) 0.4 k/uL (0-1.0); Monocytes % (A) 6 %; Neutrophils # (A) 4.7 k/uL (1.3-7.7); Neutrophils % (A) 65 %; Platelet Count 248 k/uL (150-450); RBC 4.47 m/uL (4.30-5.90); RDW 14.9 % (11.5-15.5); WBC 7.3 k/uL (3.8-10.6)
[2021-12-07 02:27] LABS: ALT 106 U/L (4-49); AST 53 U/L (17-59); African American GFR (CKD) >90 (>60 ml/min/1.73 sqM); Albumin 3.4 g/dL (3.5-5.0); Alkaline Phosphatase 126 U/L (38-126); Amylase 36 U/L (30-110); Anion Gap 14 mmol/L; Blood Urea Nitrogen 17 mg/dL (9-20); Calcium 8.5 mg/dL (8.4-10.2); Carbon Dioxide 22 mmol/L (22-30); Chloride 104 mmol/L (98-107); Glucose 120 mg/dL (74-99); Lipase 12 U/L (23-300); Non-African American GFR(CKD) 78 (>60 ml/min/1.73 sqM); Potassium 3.3 mmol/L (3.5-5.1); Sodium 140 mmol/L (137-145); Total Bilirubin 0.5 mg/dL (0.2-1.3); Total Protein 6.5 g/dL (6.3-8.2)
--- NOTE | 2021-12-07 02:58 | ED ---
General Adult HPI - General Chief complaint: Abdominal Pain Stated complaint: Abdominal pain Time Seen by Provider: 12/07/21 01:30 Source: patient, RN notes reviewed, old records reviewed Mode of arrival: ambulatory - History of Present Illness Initial comments: Patient is a 66-year-old male with past medical history remarkable for acid reflux, prostate disorder, definitely right ear, recent lysis of adhesions [address] Steele was discharged from the hospital 5 days ago who presents emergency Department with recurrence of diffuse abdominal pain that began this evening. States she is distraught to drink a milkshake despite being told not to use a straw. States that the pain started shortly after this. Has not had a bowel movement since his most recent lysis of adhesions but has been passing gas. Has been on a clear liquid diet. Endorses nausea. Endorses 2 episodes of nonbilious, nonbloody emesis this evening. Denies any chest pain, shortness of breath. Denies any urinary complaints. Presents for further evaluation at this time over concern for his abdominal pain. Describes it as generalized, mostly in the midline. No known palliative or provocative factors. - Related Data Home Medications Medication Instructions Recorded Confirmed oxyCODONE-APAP 10-325MG [Percocet 1 tab PO QID PRN 05/31/14 11/25/21 10-325 mg] carisoprodoL [Soma] 350 mg PO QID PRN 07/04/16 11/25/21 Multivitamin [Men's Multi-Vitamin] 1 tab PO DAILY 10/14/16 11/25/21 Cetirizine HCl [Zyrtec] 10 mg PO BID PRN 01/15/18 11/25/21 Dutasteride [Avodart] 0.5 mg PO HS 03/16/20 11/25/21 Iron Tab 27 mg PO DAILY 03/16/20 11/25/21 Pantoprazole Sodium [Protonix] 40 mg PO DAILY 03/16/20 11/25/21 Tamsulosin [Flomax] 0.8 mg PO HS 03/29/20 11/25/21 tadalafiL [Cialis] 5 mg PO DAILY PRN 03/29/20 11/25/21 Zolpidem [Ambien] 10 mg PO HS PRN 11/19/20 11/25/21 Cyanocobalamin (Vitamin B-12) 1,000 mcg PO DAILY 01/04/21 11/25/21 [Vitamin B-12] Naproxen 500 mg PO BID PRN 01/04/21 11/25/21 amLODIPine [Norvasc] 5 mg PO DAILY 01/04/21 11/25/21 Meloxicam [Mobic] 7.5 - 15 mg PO DAILY PRN 07/31/21 11/25/21 Previous Rx's Medication Instructions Recorded Acetaminophen Tab [Tylenol] 1,000 mg PO Q6HR PRN #30 tablet 10/30/20 Metoclopramide [Reglan] 10 mg PO ACHS #20 tab 11/21/21 Allergies Allergy/AdvReac Type Severity Reaction Status Date / Time No Known Allergies Allergy Verified 12/07/21 01:26 Review of Systems ROS Statement: Those systems with pertinent positive or pertinent negative responses have been documented in the HPI. Review of Systems: CONST: Denies fever EYES: Denies blurry vision ENT: Denies nasal congestion C/V: Denies Chest pain RESP: Denies shortness of breath GI: Endorses abdominal pain : Denies dysuria SKIN: Denies rash. MSK: Denies joint pain. NEURO: Denies headache ROS Other: All systems not noted in ROS Statement are negative. Past Medical History Past Medical History: GERD/Reflux, Hearing Disorder / Deafness, Osteoarthritis (OA), Prostate Disorder Additional Past Medical History / Comment(s): Deaf in right ear, BACK PAIN, DJD, enlarged prostate, bowel obstruction, colitis, [place]sa History of Any Multi-Drug Resistant Organisms: MRSA Date of last positivie culture/infection: 2014 MDRO Source:: nose Past Surgical History: Back Surgery, Bowel Resection, Hernia Repair, Joint Replacement, Orthopedic Surgery Additional Past Surgical History / Comment(s): Back surgery 2-05-07, right knee replacement, right hip replacement, left hip replacement X2, PAIN PROCEDURES, COLLARBONE REPAIRED, right inguinal repair., bowel resection Past Anesthesia/Blood Transfusion Reactions: No Reported Reaction Additional Past Anesthesia/Blood Transfusion Reaction / Comment(s): No hx blood transfusion. Past Psychological History: No Psychological Hx Reported Smoking Status: Never smoker Past Alcohol Use History: Occasional Past Drug Use History: None Reported - Past Family History Father Family Medical History: Congestive Heart Failure (CHF) Brother(s) Family Medical History: Deep Vein Thrombosis (DVT) General Exam - General Exam Comments Initial Comments: General: Appears in mild distress secondary to abdominal pain. HEAD: Normal with no signs of head trauma. EYES: PERRLA, EOMI, conjunctiva normal, no discharge. ENT: Hearing grossly intact, normal oropharynx. RESPIRATORY: Clear breath sounds bilaterally. No wheezes, rales, or rhonchi. C/V: Regular rate and rhythm. S1 and S2 auscultated, no edema, peripheral pulses 2+ and intact throughout ABD: Abdomen is soft, somewhat distended. Patient states this is baseline for him. Tenderness to palpation epigastric region midline and on the side of his abdomen. No peritoneal signs. No rebound tenderness. No guarding. EXT: Normal range of motion, no obvious deformity SKIN: No rashes or lesions observed on exposed skin. NEURO: Alert and oriented 4. Course Vital Signs 12/07/21 01:20 Temperature 97.6 F Pulse Rate 77 Respiratory 18 Rate Blood Pressure 149/99 O2 Sat by Pulse 98 Oximetry Medical Decision Making - Medical Decision Making Based on the patient's presentation and physical exam, I'm concerned for acute intra-abdominal process for his current symptoms. Has not had a bowel movement yet. High on my list of differentials includes ileus or small bowel obstruction. Could be possible complication from surgery. We'll obtain abdominal laboratory studies as well as a CT abdomen and pelvis. We will send likely treat the patient with IV fluids, IV medications. He was in agreement with this plan. Vital signs within acceptable limits. Laboratory studies are remarkable for a mild anemia with a hemoglobin of 12.2 which is stable for the patient. Patient is mildly hypokalemic at 3.3, which was replenished. Remainder of labs are unremarkable.CT shows findings concerning for distal mechanical bowel obstruction or severe small bowel ileus which is new compared to the old exam. I discussed the results with the patient. I believe he requires admission to hospital. He is made nothing by mouth. I spoke with Dr. De La Paz who is covering for Dr. Steele. He was in agreement with admitting the patient. Requested the patient be made nothing by mouth. Discussed NG tube placement, and states that he can be up to the patient. Requested the patient be admitted under his surgeon, Dr. Steele. I discussed this with the patient. He was in agreement with the plan. He refuses an NG tube at this time. He is made nothing by mouth. We'll continue IV fluids, analgesia, antiemetics. He'll be admitted in stable condition. - Lab Data Result diagrams: 12/07/21 01:56 12/07/21 01:56 Lab Results 12/07/21 12/07/21 12/07/21 Range/Units 01:56 01:56 01:56 WBC 7.3 (3.8-10.6) k/uL RBC 4.47 (4.30-5.90) m/uL Hgb 12.3 L (13.0-17.5) gm/dL Hct 38.0 L (39.0-53.0) % MCV 85.0 (80.0-100.0) fL MCH 27.4 (25.0-35.0) pg MCHC 32.3 (31.0-37.0) g/dL RDW 14.9 (11.5-15.5) % Plt Count 248 (150-450) k/uL MPV 8.7 Neutrophils % 65 % Lymphocytes % 20 % Monocytes % 6 % Eosinophils % 7 % Basophils % 1 % Neutrophils # 4.7 (1.3-7.7) k/uL Lymphocytes # 1.5 (1.0-4.8) k/uL Monocytes # 0.4 (0-1.0) k/uL Eosinophils # 0.5 (0-0.7) k/uL Basophils # 0.0 (0-0.2) k/uL PT (9.0-12.0) sec INR (<1.2) APTT (22.0-30.0) sec Sodium 140 (137-145) mmol/L Potassium 3.3 L (3.5-5.1) mmol/L Chloride 104 (98-107) mmol/L Carbon Dioxide 22 (22-30) mmol/L Anion Gap 14 mmol/L BUN 17 (9-20) mg/dL Creatinine 1.01 (0.66-1.25) mg/dL Est GFR (CKD-EPI)AfAm >90 (>60 ml/min/1.73 sqM) Est GFR (CKD-EPI)NonAf 78 (>60 ml/min/1.73 sqM) Glucose 120 H (74-99) mg/dL Plasma Lactic Acid [place] 0.8 (0.7-2.0) mmol/L Calcium 8.5 (8.4-10.2) mg/dL Total Bilirubin 0.5 (0.2-1.3) mg/dL AST 53 (17-59) U/L ALT 106 H (4-49) U/L Alkaline Phosphatase 126 (38-126) U/L Total Protein 6.5 (6.3-8.2) g/dL Albumin 3.4 L (3.5-5.0) g/dL Amylase 36 (30-110) U/L Lipase 12 L (23-300) U/L Urine Color Urine Appearance (Clear) Urine pH (5.0-8.0) Ur Specific [place] (1.001-1.035) Urine Protein (Negative) Urine Glucose (UA) (Negative) Urine Ketones (Negative) Urine Blood (Negative) Urine Nitrite (Negative) Urine Bilirubin (Negative) Urine Urobilinogen (<2.0) mg/dL Ur Leukocyte Esterase (Negative) 12/07/21 12/07/21 Range/Units 02:34 03:18 WBC (3.8-10.6) k/uL RBC (4.30-5.90) m/uL Hgb (13.0-17.5) gm/dL Hct (39.0-53.0) % MCV (80.0-100.0) fL MCH (25.0-35.0) pg MCHC (31.0-37.0) g/dL RDW (11.5-15.5) % Plt Count (150-450) k/uL MPV Neutrophils % % Lymphocytes % % Monocytes % % Eosinophils % % Basophils % % Neutrophils # (1.3-7.7) k/uL Lymphocytes # (1.0-4.8) k/uL Monocytes # (0-1.0) k/uL Eosinophils # (0-0.7) k/uL Basophils # (0-0.2) k/uL PT 12.5 H (9.0-12.0) sec INR 1.2 H (<1.2) APTT 30.4 H (22.0-30.0) sec Sodium (137-145) mmol/L Potassium (3.5-5.1) mmol/L Chloride (98-107) mmol/L Carbon Dioxide (22-30) mmol/L Anion Gap mmol/L BUN (9-20) mg/dL Creatinine (0.66-1.25) mg/dL Est GFR (CKD-EPI)AfAm (>60 ml/min/1.73 sqM) Est GFR (CKD-EPI)NonAf (>60 ml/min/1.73 sqM) Glucose (74-99) mg/dL Plasma Lactic Acid [place] (0.7-2.0) mmol/L Calcium (8.4-10.2) mg/dL Total Bilirubin (0.2-1.3) mg/dL AST (17-59) U/L ALT (4-49) U/L Alkaline Phosphatase (38-126) U/L Total Protein (6.3-8.2) g/dL Albumin (3.5-5.0) g/dL Amylase (30-110) U/L Lipase (23-300) U/L Urine Color Yellow Urine Appearance Clear (Clear) Urine pH 6.0 (5.0-8.0) Ur Specific [place] 1.042 H (1.001-1.035) Urine Protein Trace H (Negative) Urine Glucose (UA) Negative (Negative) Urine Ketones Negative (Negative) Urine Blood Negative (Negative) Urine Nitrite Negative (Negative) Urine Bilirubin Negative (Negative) Urine Urobilinogen <2.0 (<2.0) mg/dL Ur Leukocyte Esterase Negative (Negative) Disposition Clinical Impression: Small bowel obstruction, Ileus, Abdominal pain Disposition: ADMITTED IP TO THIS [facility] Condition: Stable Referrals: Shaun Wang MD [Primary Care Provider] - 1-2 days Time of Disposition: 04:00
[2021-12-07 03:04] LABS: INR 1.2 (<1.2); Partial Thromboplastin Time 30.4 sec (22.0-30.0); Prothrombin Time 12.5 sec (9.0-12.0)
--- NOTE | 2021-12-07 03:29 | CT ---
EXAMINATION TYPE: CT abdomen pelvis w con DATE OF EXAM: 12/07/2021 COMPARISON: 11/25/2021 HISTORY: SBO SX friday/Pain CT DLP: 1561.4 mGycm Automated exposure control for dose reduction was used. CONTRAST: Performed with IV Contrast, patient injected with 100 mL of Isovue 300. Images obtained from the diaphragm to the floor the pelvis with the IV contrast. There are small bilateral pleural effusions. There is bilateral basilar pulmonary infiltrates and ate lectasis. Heart is slightly enlarged. There is a pneumoperitoneum consistent with recent surgery. Mame er is intact. Gallbladder is intact. The bowel gas are not dilated. Spleen appears normal. No evidenc e of pancreatic mass. The stomach appears intact. There is no adrenal mass. There is 3 mm calculus upper pole right kidney. No hydronephrosis. Kidneys have normal size. There is 2 cm cortical cyst lateral left kidney. No retroperitoneal adenopathy. Ure ters are not dilated. There is metal artifact from bilateral hip prosthesis. No sign of a pelvic mass . Evaluation of the pelvis difficult because of metal artifact. No sign of inguinal hernia. There are multiple dilated fluid-filled small bowel loops with fluid levels. Large bowel not dilated. Small bowel dilated up to more than 5 cm. Transition point not seen. There are multiple surgical cli ps at the right colon. Terminal ileum not well seen. There is posterior fusion surgery in the lumbar spine from L3 to L5. No lumbar compression fracture. There is multilevel lumbar spondylotic changes. The bony pelvis appears intact. IMPRESSION: Dilated small bowel with fluid levels consistent with distal mechanical obstruction or severe small b owel ileus. Transition point not identified. Dilated small bowel increased compared to old exam. There is small pleural effusions and basilar pulmonary infiltrates which are new compared to old exam .
[2021-12-07 03:32] LABS: Appearance,Urine Clear (Clear); Bilirubin,Urine Negative (Negative); Blood,Urine Negative (Negative); Color,Urine Yellow; Glucose,Urine (UA) Negative (Negative); Ketones,Urine Negative (Negative); Leukocyte Esterase,Urine Negative (Negative); Nitrite,Urine Negative (Negative); Protein,Urine Trace (Negative); Specific Gravity,Urine 1.042 (1.001-1.035); Urobilinogen,Urine <2.0 mg/dL (<2.0)
[2021-12-07] MEDS ORDERED: HYDROmorphone 0.5 MG/0.5 ML SYRINGE IVP STA (04:04)
[2021-12-07] MEDS ORDERED: ONDANSETRON 4 MG/2 ML VIAL IVP PRN (04:31)
[2021-12-07] MEDS ORDERED: NALOXONE 0.4 MG/ML 1 ML VIAL IV PRN (04:31)
[2021-12-07] MEDS ORDERED: POTASSIUM CHLORIDE 10 MEQ in WATER FOR INJECTION 1 100ML.BAG IVPB ONE (04:37)
[2021-12-07] MEDS: SODIUM CHLORIDE 0.9% 1,000 ML IV SCH ×2 (04:57→15:48)
[2021-12-07] MEDS: HYDROmorphone 0.5 MG/0.5 ML SYRINGE IVP PRN ×3 (08:10→16:27)
[2021-12-07] MEDS: amLODIPine 5 MG TAB PO SCH (08:13)
[2021-12-07] MEDS: HEPARIN SODIUM,PORCINE/PF 5,000 UNIT/0.5 ML SYRINGE SQ SCH ×2 (08:13→15:47)
[2021-12-07] MEDS ORDERED: MAGNESIUM HYDROXIDE 2,400 MG/10 ML CUP PO ONE (11:42)
[2021-12-07] MEDS ORDERED: LACTULOSE 20 GM/30 ML CUP PO ONE (11:42)
[2021-12-07 12:15] LABS: Phosphorus 3.1 mg/dL (2.5-4.5); Potassium 3.7 mmol/L (3.5-5.1)
--- NOTE | 2021-12-07 14:19 | P.GSHP ---
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 He is status post robotic-assisted laparoscopic lysis of adhesions and reduction of small bowel volvulus intake of internal hernia on 11/29/[address] Steele. Patient was discharged from the hospital on 12/02/2021 in which she was tolerating diet and passing gas at that time. Patient reports he had been doing well at home and continued to have flatus. However, yesterday after drinking a milkshake with a straw he started to have severe mid abdominal sharp pains. He had nausea and vomiting 2 episodes. He reports his abdomen was feeling more distended yesterday. He came to the ER with CAT scan showing evidence of possible distal mechanical small bowel obstruction or ileus. Patient has continued to have flatus. No bowel movement. The vomiting has resolved. He is feeling hungry. His abdomen feels softer today. He did have a low potassium of 3.3 that was replaced. He denies any fevers chills sweats. PAST MEDICAL HISTORY: See list. PAST SURGICAL HISTORY: See list. MEDICATIONS: See list. ALLERGIES: See list. SOCIAL HISTORY: No illicit drug use. REVIEW OF SYSTEMS: CONSTITUTIONAL: Denies fever or chills. HEENT: Denies blurred vision, vision changes, or eye pain. Denies hemoptysis ENDOCRINE: Denies heat or cold intolerance. CARDIOVASCULAR: Denies chest pain or pressure. RESPIRATORY: No shortness of breath. GASTROINTESTINAL: Please refer to HPI otherwise unremarkable NEURO: Denies history of seizures. PSYCH: No depression or suicidal ideation HEMATOLOGIC: Denies bleeding disorders. LYMPHATIC: The patient denies any lumps and bumps around the neck. GENITOURINARY: Denies any blood in urine or increased urinary frequency. MUSCULOSKELETAL: Denies myalgias. Denies joint swelling. Denies decreased range of motion beyond patients baseline. SKIN: Denies pruitis. Denies rash. PHYSICAL EXAM: VITAL SIGNS: Reviewed GENERAL: Well-developed in no acute distress. HEENT: No sclera icterus. Extraocular movements grossly intact. Moist buccal mucosa. Head is atraumatic, normocephalic. Hears conversational speech. No nasal drainage. NECK: Supple without lymphadenopathy. CHEST: Non-labored respirations and equal bilateral excursions. CARDIOVASCULAR: Palpable 2+ radial pulses. ABDOMEN: Soft. Mildly distended. upper mid abdomen tenderness MUSCULOSKELETAL: No clubbing or cyanosis. NEUROLOGIC: No focal or lateralizing signs. Cranial nerves II through XII grossly intact. PSYCH: Appropriate affect. Alert and oriented to person, place and time. SKIN: Well perfused. Good skin turgor. LABORATORY DATA: WBC 7.3 HGB 12.3 plt 248 Na 140 k 3.3-3.7 cr 1.01 phos 3.1 Mg 2.0 IMAGING: Computed tomography scan abdomen and pelvis dilated small bowel with fluid levels consistent with distal mechanical obstruction or severe small bowel ileus. Transition point identified. Dilated small bowel increased compared to old exam. There is small pleural effusions and basilar pulmonary infiltrates which are new compared to old exam. ASSESSMENT: 1. Abdominal pain 2. Severe small bowel Ileus 3. Hypokalemia 4. Constipation 5. History of recurrent small bowel obstruction with recent lysis of adhesions and reduction of small bowel volvulus PLAN: -No surgical intervention planned -Continue supportive care -Potassium corrected -Advance diet to regular -1 dose of lactulose and milk of magnesia ordered to help with constipation -Continue to monitor -Encourage patient to ambulate -Anticipate discharge tomorrow Physician [employer]rier note has been reviewed by physician. Signing provider agrees with the documented findings, assessment, and plan of care. 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 History of Any Multi-Drug Resistant Organisms: MRSA Date of last positivie culture/infection: 2014 MDRO Source:: nose Past Surgical History: Back Surgery, Bowel Resection, Hernia Repair, Joint Replacement, Orthopedic Surgery Additional Past Surgical History / Comment(s): 11/16/21 lysis of adhesions, robotic small bowel decompression/extensive lysis of adhesions, colonoscopies, bilateral total hip arthroplasties/R hip twice, R total knee arthroplasty, ORIF clavicle/pin since removed, R inguinal hernia repair, pain clinic procedures. Past Anesthesia/Blood Transfusion Reactions: No Reported Reaction Additional Past Anesthesia/Blood Transfusion Reaction / Comment(s): No hx blood transfusion. Smoking Status: Never smoker - Past Family History Father Family Medical History: Congestive Heart Failure (CHF) Brother(s) Family Medical History: Deep Vein Thrombosis (DVT) Medications and Allergies Home Medications Medication Instructions Recorded Confirmed Type oxyCODONE-APAP 10-325MG [Percocet 1 tab PO QID PRN 05/31/14 12/07/21 History 10-325 mg] carisoprodoL [Soma] 350 mg PO QID PRN 07/04/16 12/07/21 History Multivitamin [Men's Multi-Vitamin] 1 tab PO DAILY 10/14/16 12/07/21 History Cetirizine HCl [Zyrtec] 10 mg PO BID PRN 01/15/18 12/07/21 History Dutasteride [Avodart] 0.5 mg PO HS 03/16/20 12/07/21 History Iron Tab 27 mg PO DAILY 03/16/20 12/07/21 History Pantoprazole Sodium [Protonix] 40 mg PO DAILY 03/16/20 12/07/21 History Tamsulosin [Flomax] 0.8 mg PO HS 03/29/20 12/07/21 History tadalafiL [Cialis] 5 mg PO DAILY PRN 03/29/20 12/07/21 History Acetaminophen Tab [Tylenol] 1,000 mg PO Q6HR PRN #30 tablet 10/30/20 12/07/21 Rx Zolpidem [Ambien] 10 mg PO HS PRN 11/19/20 12/07/21 History Cyanocobalamin (Vitamin B-12) 1,000 mcg PO DAILY 01/04/21 12/07/21 History [Vitamin B-12] Naproxen 500 mg PO BID PRN 01/04/21 12/07/21 History amLODIPine [Norvasc] 5 mg PO DAILY 01/04/21 12/07/21 History Meloxicam [Mobic] 7.5 - 15 mg PO DAILY PRN 07/31/21 12/07/21 History Metoclopramide [Reglan] 10 mg PO ACHS #20 tab 11/21/21 12/07/21 Rx Allergies Allergy/AdvReac Type Severity Reaction Status Date / Time No Known Allergies Allergy Verified 12/07/21 01:26 Surgical - Exam Vital Signs Temp Pulse Resp BP Pulse Ox 97.6 F 77 18 149/99 98 12/07/21 01:20 12/07/21 01:20 12/07/21 01:20 12/07/21 01:20 12/07/21 01:20 Results - Labs 12/07/21 01:56 12/07/21 11:50 Abnormal Lab Results - Last 24 Hours (Table) 12/07/21 12/07/21 12/07/21 Range/Units 01:56 01:56 02:34 Hgb 12.3 L (13.0-17.5) gm/dL Hct 38.0 L (39.0-53.0) % PT 12.5 H (9.0-12.0) sec INR 1.2 H (<1.2) APTT 30.4 H (22.0-30.0) sec Potassium 3.3 L (3.5-5.1) mmol/L Glucose 120 H (74-99) mg/dL ALT 106 H (4-49) U/L Albumin 3.4 L (3.5-5.0) g/dL Lipase 12 L (23-300) U/L Ur Specific [place] (1.001-1.035) Urine Protein (Negative) 12/07/21 Range/Units 03:18 Hgb (13.0-17.5) gm/dL Hct (39.0-53.0) % PT (9.0-12.0) sec INR (<1.2) APTT (22.0-30.0) sec Potassium (3.5-5.1) mmol/L Glucose (74-99) mg/dL ALT (4-49) U/L Albumin (3.5-5.0) g/dL Lipase (23-300) U/L Ur Specific [place] 1.042 H (1.001-1.035) Urine Protein Trace H (Negative) Diabetes panel 12/07/21 Range/Units 01:56 Sodium 140 (137-145) mmol/L Potassium 3.3 L (3.5-5.1) mmol/L Chloride 104 (98-107) mmol/L Carbon Dioxide 22 (22-30) mmol/L BUN 17 (9-20) mg/dL Creatinine 1.01 (0.66-1.25) mg/dL Glucose 120 H (74-99) mg/dL Calcium 8.5 (8.4-10.2) mg/dL AST 53 (17-59) U/L ALT 106 H (4-49) U/L Alkaline Phosphatase 126 (38-126) U/L Total Protein 6.5 (6.3-8.2) g/dL Albumin 3.4 L (3.5-5.0) g/dL Calcium panel 12/07/21 Range/Units 01:56 Calcium 8.5 (8.4-10.2) mg/dL Albumin 3.4 L (3.5-5.0) g/dL Pituitary panel 12/07/21 Range/Units 01:56 Sodium 140 (137-145) mmol/L Potassium 3.3 L (3.5-5.1) mmol/L Chloride 104 (98-107) mmol/L Carbon Dioxide 22 (22-30) mmol/L BUN 17 (9-20) mg/dL Creatinine 1.01 (0.66-1.25) mg/dL Glucose 120 H (74-99) mg/dL Calcium 8.5 (8.4-10.2) mg/dL Adrenal panel 12/07/21 Range/Units 01:56 Sodium 140 (137-145) mmol/L Potassium 3.3 L (3.5-5.1) mmol/L Chloride 104 (98-107) mmol/L Carbon Dioxide 22 (22-30) mmol/L BUN 17 (9-20) mg/dL Creatinine 1.01 (0.66-1.25) mg/dL Glucose 120 H (74-99) mg/dL Calcium 8.5 (8.4-10.2) mg/dL Total Bilirubin 0.5 (0.2-1.3) mg/dL AST 53 (17-59) U/L ALT 106 H (4-49) U/L Alkaline Phosphatase 126 (38-126) U/L Total Protein 6.5 (6.3-8.2) g/dL Albumin 3.4 L (3.5-5.0) g/dL
[2021-12-07] MEDS ORDERED: oxyCODONE-APAP 10-325MG 1 EACH TAB PO PRN (16:37)
[2021-12-07] MEDS ORDERED: NON FORMULARY DRUG (Tadalafil [Cialis] 5 MG Tablet) PO PRN (16:37)
[2021-12-07] MEDS ORDERED: ZOLPIDEM 5 MG TAB PO PRN (16:37)
[2021-12-07] MEDS ORDERED: LORATADINE 10 MG TAB PO PRN (16:37)
[2021-12-07] MEDS ORDERED: carisoprodoL 350 MG TAB PO PRN (16:37)
[2021-12-07] MEDS ORDERED: POTASSIUM PHOSPHATE 10 MMOL in SODIUM CHLORIDE 0.9% 250 ML IV ONE (16:40)
[2021-12-07] MEDS: METOCLOPRAMIDE 5 MG/ML 2 ML VIAL IVP SCH (17:41)
[2021-12-07] MEDS: 0.9% NACL WITH KCL 20 MEQ/L 1,000 ML IV SCH (17:41)
[2021-12-07] MEDS ORDERED: TAMSULOSIN 0.4 MG CAP.ER.24H PO SCH (21:00)
[2021-12-07] MEDS ORDERED: FINASTERIDE 5 MG TAB PO SCH (21:00)
[2021-12-08] MEDS: METOCLOPRAMIDE 5 MG/ML 2 ML VIAL IVP SCH ×3 (00:40→11:48)
[2021-12-08] MEDS: HEPARIN SODIUM,PORCINE/PF 5,000 UNIT/0.5 ML SYRINGE SQ SCH ×2 (00:41→09:26)
[2021-12-08] MEDS: 0.9% NACL WITH KCL 20 MEQ/L 1,000 ML IV SCH ×2 (04:16→11:48)
[2021-12-08] MEDS ORDERED: PANTOPRAZOLE 40 MG TABLET PO SCH (09:00)
[2021-12-08] MEDS: amLODIPine 5 MG TAB PO SCH (09:26)
[2021-12-08 11:28] VITALS: BP 154/96; PULSE 58; RESP 17; TEMP 98.4
[2021-12-08 12:46] VITALS: BMI 29.7
[2021-12-08 12:56] LABS: Basophils # (A) 0.01 X 10*3/uL (0.00-0.10); Basophils % (A) 0.2 %; Eosinophils # (A) 0.42 X 10*3/uL (0.04-0.35); Eosinophils % (A) 7.3 %; HCT 33.8 % (39.6-50.0); Immature Grans, Automated 0.3 %; Lymphocytes % (A) 24.2 %; MCH 27.1 pg (27.0-32.0); MCHC 32.5 g/dL (32.0-37.0); MCV 83.3 fL (80.0-97.0); Mean Platelet Volume 10.7 fL (9.5-12.2); Monocytes # (A) 0.51 X 10*3/uL (0.20-1.00); Monocytes % (A) 8.8 %; NRBC Per 100 WBC 0 /100 WBCS (0.0-0.0); Neutrophils # (A) 3.43 X 10*3/uL (1.80-7.70); Neutrophils % (A) 59.2 %; Platelet Count 246 X 10*3/uL (140-440); RBC 4.06 X 10*6/uL (4.40-5.60); RDW 15.2 % (11.5-14.5); WBC 5.79 X 10*3/uL (4.50-10.00)
[2021-12-08 13:01] LABS: African American GFR (CKD) 91.1 (60.0-200.0); Anion Gap 7.3 mmol/L (10.00-18.00); BUN/Creat Ratio 12.3 Ratio (12.00-20.00); Blood Urea Nitrogen 12.3 mg/dL (9.0-27.0); Calcium 8.3 mg/dL (8.7-10.3); Carbon Dioxide 22.7 mmol/L (20.0-27.5); Magnesium 1.8 mg/dL (1.5-2.4); Non-African American GFR(CKD) 78.6 (60.0-200.0); Phosphorus 2.6 mg/dL (2.4-5.1)
--- NOTE | 2021-12-08 14:09 | P.PN ---
Subjective Progress Note Date: 12/08/21 CHIEF COMPLAINT: Ileus HISTORY OF PRESENT ILLNESS: The patient is a 66-year-old male admitted for ileu s. He is having bowel movements. He is passing moderate flatus. He is tolerating diet. He denies any abdominal pain and eager to go home. ROS: No reports of nausea and vomiting. No fevers or chills. No new chest pain. No productive sputum PHYSICAL EXAM: VITAL SIGNS: Reviewed CONSTITUTIONAL: Well developed and in no acute distress. EYES: Conjuctivae without sclera icterus. Extraocular movements grossly intact. HEAD, EARS, NOSE, THROAT: Moist buccal mucosa. Head is atraumatic, normoc ephalic. Hears conversational speech. No nasal drainage. RESPIRATORY: Non-labored respirations and equal bilateral excursions. CARDIOVASCULAR: Palpable 2+ radial pulses. ABDOMEN: MUSCULOSKELETAL: No gross deformity of the lower extremities noted. No clubbing. No cyanosis. SKIN: Good skin turgor. Well perfused. NEUROLOGIC: Cranial nerves II through XII grossly intact. No focal or lateraliz ing signs. PSYCH: Appropriate affect. Alert and oriented to person, place and time. CLINICAL LABS: Reviewed. Phosphorus improved over 2.5. Potassium normal 4.0. Magnesium improved over 1.7. ASSESSMENT: 1. Ileus 2. Constipation PLAN: 1. Clinically, his symptoms have resolved and stable for discharge. 2. Lactulose ordered as needed for constipation 3. Follow-up telehealth in 5 days Objective - Vital Signs Vital signs: Vital Signs Temp 98.4 F 12/08/21 11:07 Pulse 58 L 12/08/21 11:07 Resp 17 12/08/21 11:07 BP 154/96 12/08/21 11:07 Pulse Ox 99 12/08/21 11:07 FiO2 Intake & Output 12/07/21 12/08/21 12/08/21 18:59 06:59 18:59 Intake Total 130 Balance 130 Weight 96.615 kg 96.615 kg Intake: Intake, IV Titration 130 Amount 0.9% NaCl with KCl 20 Meq 130 /l 1,000 ml @ 130 mls/hr IV .[id number] [facility] Rx#: [id number] Other: Voiding Method Toilet Toilet Toilet # Voids 2 # Bowel Movements 1 4 - Labs CBC & Chem 7: 12/08/21 08:36 12/08/21 08:36 Labs: Abnormal Lab Results - Last 24 Hours (Table) 12/08/21 Range/Units 08:36 RBC 4.06 L (4.40-5.60) X 10*6/uL Hgb 11.0 L (13.0-17.0) g/dL Hct 33.8 L (39.6-50.0) % RDW 15.2 H (11.5-14.5) % Eosinophils # 0.42 H (0.04-0.35) X 10*3/uL
--- NOTE | 2021-12-08 14:11 | P.DS ---
Providers Date of admission: 12/07/21 04:33 Expected date of discharge: 12/08/21 Attending physician: Lizet Steele Primary care physician: Shaun Wang [facility] Course: POSTOPERATIVE DIAGNOSES: 1. Ileus due to electrolyte abnormality 2. Chronic pain syndrome with new right upper quadrant epigastric left upper quadrant pain 3. History of multiple abdominal surgeries 4. Obstructive uropathy due to prostate disorder 5. Hypertensive heart disease 6. Gastroesophageal reflux disease 7. Protein malnutrition, moderate due to inadequate protein oral intake 8. History of bowel obstruction status post lysis of adhesions 9. Constipation CHIEF COMPLAINT: Ileus HISTORY OF PRESENT ILLNESS: The patient is a 66-year-old male admitted for ileus. He reports at the time of admission passing moderate flatus. His main concern for admission was constipation. Diagnostic studies demonstrated severe ileus. After correction of electrolytes and laxative, he is having bowel movements. He is passing moderate flatus. He is tolerating diet. He denies any abdominal pain and eager to go home. ROS: No reports of nausea and vomiting. No fevers or chills. No new chest pain. No productive sputum PHYSICAL EXAM: VITAL SIGNS: Reviewed CONSTITUTIONAL: Well developed and in no acute distress. EYES: Conjuctivae without sclera icterus. Extraocular movements grossly intact. HEAD, EARS, NOSE, THROAT: Moist buccal mucosa. Head is atraumatic, normocephalic. Hears conversational speech. No nasal drainage. RESPIRATORY: Non-labored respirations and equal bilateral excursions. CARDIOVASCULAR: Palpable 2+ radial pulses. ABDOMEN: MUSCULOSKELETAL: No gross deformity of the lower extremities noted. No clubbing. No cyanosis. SKIN: Good skin turgor. Well perfused. NEUROLOGIC: Cranial nerves II through XII grossly intact. No focal or lateralizing signs. PSYCH: Appropriate affect. Alert and oriented to person, place and time. CLINICAL LABS: Reviewed. Phosphorus improved over 2.5. Potassium normal 4.0. Magnesium improved over 1.7. ASSESSMENT: 1. Ileus 2. Constipation PLAN: 1. Clinically, his symptoms have resolved and stable for discharge. 2. Lactulose ordered as needed for constipation 3. Follow-up telehealth in 5 days Patient Condition at Discharge: Good Plan - Discharge Summary Discharge Rx Participant: No New Discharge Prescriptions: New Lactulose [Cephulac] 30 gm PO DAILY PRN #400 ml PRN Reason: Constipation Continue oxyCODONE-APAP 10-325MG [Percocet 10-325 mg] 1 tab PO QID PRN PRN Reason: Pain carisoprodoL [Soma] 350 mg PO QID PRN PRN Reason: Pain Multivitamin [Men's Multi-Vitamin] 1 tab PO DAILY Cetirizine HCl [Zyrtec] 10 mg PO BID PRN PRN Reason: Allergy Symptoms Dutasteride [Avodart] 0.5 mg PO HS Pantoprazole Sodium [Protonix] 40 mg PO DAILY Iron Tab 27 mg PO DAILY Tamsulosin [Flomax] 0.8 mg PO HS tadalafiL [Cialis] 5 mg PO DAILY PRN PRN Reason: E.D. Acetaminophen Tab [Tylenol] 1,000 mg PO Q6HR PRN #30 tablet PRN Reason: Pain Zolpidem [Ambien] 10 mg PO HS PRN PRN Reason: Insomnia Naproxen 500 mg PO BID PRN PRN Reason: Pain Cyanocobalamin (Vitamin B-12) [Vitamin B-12] 1,000 mcg PO DAILY Metoclopramide [Reglan] 10 mg PO ACHS #20 tab amLODIPine [Norvasc] 5 mg PO DAILY Meloxicam [Mobic] 7.5 - 15 mg PO DAILY PRN PRN Reason: Pain Discharge Medication List oxyCODONE-APAP 10-325MG [Percocet 10-325 mg] 1 tab PO QID PRN 05/31/14 [History] carisoprodoL [Soma] 350 mg PO QID PRN 07/04/16 [History] Multivitamin [Men's Multi-Vitamin] 1 tab PO DAILY 10/14/16 [History] Cetirizine HCl [Zyrtec] 10 mg PO BID PRN 01/15/18 [History] Dutasteride [Avodart] 0.5 mg PO HS 03/16/20 [History] Iron Tab 27 mg PO DAILY 03/16/20 [History] Pantoprazole Sodium [Protonix] 40 mg PO DAILY 03/16/20 [History] Tamsulosin [Flomax] 0.8 mg PO HS 03/29/20 [History] tadalafiL [Cialis] 5 mg PO DAILY PRN 03/29/20 [History] Acetaminophen Tab [Tylenol] 1,000 mg PO Q6HR PRN #30 tablet 10/30/20 [Rx] Zolpidem [Ambien] 10 mg PO HS PRN 11/19/20 [History] Cyanocobalamin (Vitamin B-12) [Vitamin B-12] 1,000 mcg PO DAILY 01/04/21 [History] Naproxen 500 mg PO BID PRN 01/04/21 [History] amLODIPine [Norvasc] 5 mg PO DAILY 01/04/21 [History] Meloxicam [Mobic] 7.5 - 15 mg PO DAILY PRN 07/31/21 [History] Metoclopramide [Reglan] 10 mg PO ACHS #20 tab 11/21/21 [Rx] Lactulose [Cephulac] 30 gm PO DAILY PRN #400 ml 12/08/21 [Rx] Follow up Appointment(s)/Referral(s): Shaun Wang MD [Primary Care Provider] - 1-2 days Lizet Steele MD [STAFF PHYSICIAN] - 12/11/21 (TELEHEALTH -- DR WILL CALL YOU AT HOME) Patient Instructions/Handouts: Constipation (DC), Ileus (DC) Activity/Diet/Wound Care/Special Instructions: Diet as tolerated. Use lactulose as needed for constipation Discharge Disposition: HOME SELF-CARE
== END 2021-12-08 14:28 | disposition home or self-care (01) | DRG 389 ==
LOC: EC 01:11 → 5NMEDONC 04:33
PROVIDERS: ADMIT Surgery Plastic and Reconstructive Surgery; ATTEND Surgery Plastic and Reconstructive Surgery
DX: K56.7 Ileus, unspecified (principal); E44.0 Moderate protein-calorie malnutrition; N13.8 Other obstructive and reflux uropathy; K21.9 Gastro-esophageal reflux disease without esophagitis; M19.90 Unspecified osteoarthritis, unspecified site; N40.1 Benign prostatic hyperplasia with lower urinary tract symptoms; Z68.29 Body mass index [BMI] 29.0-29.9, adult; D64.9 Anemia, unspecified; E87.6 Hypokalemia; G89.4 Chronic pain syndrome; H91.91 Unspecified hearing loss, right ear; I11.9 Hypertensive heart disease without heart failure; K59.00 Constipation, unspecified; Z79.899 Other long term (current) drug therapy; Z90.49 Acquired absence of other specified parts of digestive tract; Z86.14 Personal history of Methicillin resistant Staphylococcus aureus infection; Z28.21 Immunization not carried out because of patient refusal; Z53.29 Procedure and treatment not carried out because of patient's decision for other reasons
CPT/HCPCS: 36415; 74177; 80048; 80053; 81003; 82150; 83605; 83690; 83735; 84100; 84132; 85025; 85610; 85730; 96361; 96365; 96366; 96372; 96375; 96376; 99285

== ENCOUNTER → 2022-01-25 | Outpatient (CLI) | payer MEDICARE, OTHER ==
--- NOTE | 2022-01-25 14:32 | CT ---
EXAMINATION TYPE: CT left knee - [facility] Protocol DATE OF EXAM: 01/25/2022 COMPARISON: None HISTORY: Pre surgical planning CT DLP: 1022 mGycm TECHNIQUE:Multiplanar images submitted FINDINGS: There is postsurgical change of bilateral hip with heterotopic ossification. There is severe osteoart hritis of the knee of the knee with complete loss of space in the medial compartment and severe narro wing of patellofemoral compartment. Suspected suprapatellar bursal small fluid collection. There is sclerosis involving the bilateral talus which could be associated with osteonecrosis of the talar dome. IMPRESSION: 1. Limited exam for preprocedural imaging demonstrates severe osteoarthritis of the left knee. 2. There is sclerosis of the bilateral talar dome which can be associated with osteonecrosis of the t alar dome bilaterally correlate clinically. 3. Bilateral hip prostheses.
== END | disposition home or self-care (01) ==
LOC: RADCTMAIN 13:06
PROVIDERS: ATTEND Orthopaedic Surgery
DX: Z01.818 Encounter for other preprocedural examination (principal); M17.12 Unilateral primary osteoarthritis, left knee; Z96.643 Presence of artificial hip joint, bilateral

== ENCOUNTER → 2022-02-19 | Outpatient (CLI) | payer OTHER ==
--- NOTE | 2022-02-19 13:54 | CT ---
EXAMINATION TYPE: CT left knee - [facility] Protocol CT DLP: 1366 mGycm, Automated exposure control for dose reduction was used. DATE OF EXAM: 02/19/2022 1:47 PM COMPARISON: Left knee CT from 01/25/2022 CLINICAL INDICATION:Male, 66 years old with history of M25.562 pain L knee, Left knee pain. TECHNIQUE: Axial images were obtained of the left knee . Additional coronal and sagittal reformatted images and soft tissue and bone window were obtained for review. 3-D reconstruction was created on a separate workstation. Contrast used: None Oral contrast used: None FINDINGS: Bilateral hip arthroplasty changes. Hardware appears intact and appropriate position. There is hypertrophic callus locations around the hips bilaterally. No evidence of loosening or periprosth etic fractures identified. The right knee demonstrates total knee arthroplasty changes which limits e valuation of the left knee secondary to streak artifact. The left knee demonstrates osteophyte format ion of all joints with sobc-uo-hpon articulation left knee with subchondral cystic changes and sclero sis most pronounced in the medial joint compartment. No evidence of fracture. Visualized ankle joints and feet demonstrate talar dome subchondral sclerosis. IMPRESSION: 1. Severe left knee osteoarthrosis. 2. Bilateral talar dome subchondral sclerosis without deformity suggestive of prior avascular necros is. 3. Bilateral hip and right knee prostheses with hardware in appropriate position.
== END | disposition home or self-care (01) ==
LOC: RADCTMAIN 13:05
PROVIDERS: ATTEND Orthopaedic Surgery
DX: M17.12 Unilateral primary osteoarthritis, left knee (principal); M11.262 Other chondrocalcinosis, left knee; M21.162 Varus deformity, not elsewhere classified, left knee; Z96.651 Presence of right artificial knee joint; Z96.643 Presence of artificial hip joint, bilateral

== ENCOUNTER 2022-03-11 21:54 | Inpatient (IN) | payer MEDICARE, OTHER ==
--- NOTE | 2022-03-11 22:37 | ED ---
Abdominal Pain HPI - General Source: patient, RN notes reviewed Mode of arrival: ambulatory Limitations: no limitations <Kellen Roa - Last Filed: 03/11/22 22:37> - General Source: patient, RN notes reviewed Mode of arrival: ambulatory Limitations: no limitations <Dank Malik - Last Filed: 03/12/22 01:49> - General Chief Complaint: Abdominal Pain Stated Complaint: Bowel Obstruction Time Seen by Provider: 03/11/22 22:37 - History of Present Illness Initial Comments: Patient is a 66-year-old male presenting with chief complaint of abdominal pain. Patient has history of partial bowel obstructions, states that this pain feels identical. Pain started about 5-6 hours ago. Patient is having bowel movements and passing gas. No nausea or vomiting. No chest pain or difficulty breathing. No fever or chills. (Kellen Roa) This a 66-year-old male presents emergency department to abdominal pain. Patient states started today. Patient states she's had multiple obstructions in the past in which she states started after hernia repair and states he's had surgery for his obstruction past. Patient denies any nausea vomiting states he did have bowel movement earlier today he's had minimal passage of stool and gas. (Dank Malik) - Related Data Home Medications Medication Instructions Recorded Confirmed oxyCODONE-APAP 10-325MG [Percocet 1 tab PO QID PRN 05/31/14 12/07/21 10-325 mg] carisoprodoL [Soma] 350 mg PO QID PRN 07/04/16 12/07/21 Multivitamin [Men's Multi-Vitamin] 1 tab PO DAILY 10/14/16 12/07/21 Cetirizine HCl [Zyrtec] 10 mg PO BID PRN 01/15/18 12/07/21 Dutasteride [Avodart] 0.5 mg PO HS 03/16/20 12/07/21 Iron Tab 27 mg PO DAILY 03/16/20 12/07/21 Pantoprazole Sodium [Protonix] 40 mg PO DAILY 03/16/20 12/07/21 Tamsulosin [Flomax] 0.8 mg PO HS 03/29/20 12/07/21 tadalafiL [Cialis] 5 mg PO DAILY PRN 03/29/20 12/07/21 Zolpidem [Ambien] 10 mg PO HS PRN 11/19/20 12/07/21 Cyanocobalamin (Vitamin B-12) 1,000 mcg PO DAILY 01/04/21 12/07/21 [Vitamin B-12] Naproxen 500 mg PO BID PRN 01/04/21 12/07/21 amLODIPine [Norvasc] 5 mg PO DAILY 01/04/21 12/07/21 Meloxicam [Mobic] 7.5 - 15 mg PO DAILY PRN 07/31/21 12/07/21 Previous Rx's Medication Instructions Recorded Acetaminophen Tab [Tylenol] 1,000 mg PO Q6HR PRN #30 tablet 10/30/20 Metoclopramide [Reglan] 10 mg PO ACHS #20 tab 11/21/21 Lactulose [Cephulac] 30 gm PO DAILY PRN #400 ml 12/08/21 Allergies Allergy/AdvReac Type Severity Reaction Status Date / Time No Known Allergies Allergy Verified 03/11/22 22:30 Review of Systems ROS Other: All systems not noted in ROS Statement are negative. <Kellen Roa - Last Filed: 03/11/22 22:37> ROS Other: All systems not noted in ROS Statement are negative. <Dank Malik - Last Filed: 03/12/22 01:49> ROS Statement: Those systems with pertinent positive or pertinent negative responses have been documented in the HPI. 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 History of Any Multi-Drug Resistant Organisms: MRSA Date of last positivie culture/infection: 2014 MDRO Source:: nose Past Surgical History: Back Surgery, Bowel Resection, Hernia Repair, Joint Replacement, Orthopedic Surgery Additional Past Surgical History / Comment(s): 11/16/21 lysis of adhesions, robotic small bowel decompression/extensive lysis of adhesions, co lonoscopies, bilateral total hip arthroplasties/R hip twice, R total knee arthroplasty, ORIF clavicle/pin since removed, R inguinal hernia repair, pain clinic procedures. Past Anesthesia/Blood Transfusion Reactions: No Reported Reaction Additional Past Anesthesia/Blood Transfusion Reaction / Comment(s): No hx blood transfusion. Past Psychological History: No Psychological Hx Reported Smoking Status: Never smoker Past Alcohol Use History: None Reported Past Drug Use History: None Reported - Past Family History Father Family Medical History: Congestive Heart Failure (CHF) Brother(s) Family Medical History: Deep Vein Thrombosis (DVT) <Kellen Roa - Last Filed: 03/11/22 22:37> General Exam Limitations: no limitations <Kellen Roa - Last Filed: 03/11/22 22:37> Limitations: no limitations General appearance: alert, in no apparent distress Head exam: Present: atraumatic, normocephalic, normal inspection Eye exam: Present: normal appearance, PERRL, EOMI. Absent: scleral icterus, conjunctival injection, periorbital swelling Neck exam: Present: normal inspection. Absent: tenderness, meningismus, lymphadenopathy Respiratory exam: Present: normal lung sounds bilaterally. Absent: respiratory distress, wheezes, rales, rhonchi, stridor Cardiovascular Exam: Present: regular rate, normal rhythm, normal heart sounds. Absent: systolic murmur, diastolic murmur, rubs, gallop, clicks GI/Abdominal exam: Present: soft, tenderness, normal bowel sounds. Absent: distended, guarding, rebound, rigid <Dank Malik - Last Filed: 03/12/22 01:49> Course Vital Signs 03/11/22 22:30 Temperature 98 F Pulse Rate 61 Respiratory 18 Rate Blood Pressure 177/98 O2 Sat by Pulse 100 Oximetry Medical Decision Making - Lab Data Result diagrams: 03/12/22 00:16 03/12/22 00:16 <Dank Malik - Last Filed: 03/12/22 01:49> - Medical Decision Making Was pt. sent in by a medical professional or institution (, PA, JAVA LEAD ENGINEER, urgent care, hospital, or jail...) When possible be specific @ -No Did you speak to anyone other than the patient for history (EMS, parent, family, police, friend...)? What history was obtained from this source @ -No Did you review nursing and triage notes (agree or disagree)? Why? @ -I reviewed and agree with nursing and triage notes Were old charts reviewed (outside hosp., previous admission, EMS record, old EKG, old radiological studies, urgent care reports/EKG's, jail records)? Report findings @ -No old charts were reviewed Differential Diagnosis (chest pain, altered mental status, abdominal pain women, abdominal pain men, vaginal bleeding, weakness, fever, dyspnea, syncope, headache, dizziness, GI bleed, back pain, seizure, CVA, palpatations, mental health)? @ -Bowel obstruction, abdominal pain, gastroenteritis, constipation, colitis, diverticulitis, this list is not all-inclusive EKG interpreted by me (3pts min.). @ -None X-rays interpreted by me (1pt min.). @ -None done CT interpreted by me (1pt min.). @ -CT shows evidence of bowel obstruction and anastomosis U/S interpreted by me (1pt. min.). @ -None done What testing was considered but not performed or refused? (CT, X-rays, U/S, labs)? Why? @ -None What meds were considered but not given or refused? Why? @ -None Did you discuss the management of the patient with other professionals (professionals i.e. , PA, JAVA LEAD ENGINEER, lab, RT, psych nurse, addiction social worker, production recorder, teacher, welfare officer, case coordinator)? Give summary @ - surgeon Was smoking cessation discussed for >3mins.? @ -No Was critical care preformed (if so, how long)? @ -No Were there social determinants of health that impacted care today? How? (Homelessness, low income, unemployed, alcoholism, drug addiction, transportation, low edu. Level, literacy, decrease access to med. care, snf, rehab)? @ -No Was there de-escalation of care discussed even if they declined (Discuss DNR or withdrawal of care, Hospice)? DNR status @ -No What co-morbidities impacted this encounter? (DM, HTN, Smoking, COPD, CAD, Cancer, CVA, ARF, Chemo, Hep., AIDS, mental health diagnosis, sleep apnea, morbid obesity)? @ -None Was patient admitted / discharged? Hospital course, mention meds given and route, prescriptions, significant lab abnormalities, going to OR and other pertinent info. @ -hospital course Undiagnosed new problem with uncertain prognosis? @ -No Drug Therapy requiring intensive monitoring for toxicity (Heparin, Nitro, Insulin, Cardizem)? @ -No Were any procedures done? @ -No Diagnosis/symptom? @ -Small bowel obstruction Acute, or Chronic, or Acute on Chronic? @ -Acute Uncomplicated (without systemic symptoms) or Complicated (systemic symptoms)? @ -complicated Side effects of treatment? @ -No Exacerbation, Progression, or Severe Exacerbation? @ -No Poses a threat to life or bodily function? How? (Chest pain, USA, PA, pneumonia, PE, COPD, DKA, ARF, appy, cholecystitis, CVA, Diverticulitis, Homicidal, Suicidal, threat to staff... and all critical care pts) @ -No (Dank Malik) - Lab Data Lab Results 03/12/22 03/12/22 03/12/22 Range/Units 00:16 00:16 00:16 WBC 5.0 (3.8-10.6) k/uL RBC 4.76 (4.30-5.90) m/uL Hgb 12.9 L (13.0-17.5) gm/dL Hct 40.7 (39.0-53.0) % MCV 85.4 (80.0-100.0) fL MCH 27.0 (25.0-35.0) pg MCHC 31.6 (31.0-37.0) g/dL RDW 15.9 H (11.5-15.5) % Plt Count 137 L (150-450) k/uL MPV 9.0 Neutrophils % 56 % Lymphocytes % 32 % Monocytes % 6 % Eosinophils % 3 % Basophils % 0 % Neutrophils # 2.8 (1.3-7.7) k/uL Lymphocytes # 1.6 (1.0-4.8) k/uL Monocytes # 0.3 (0-1.0) k/uL Eosinophils # 0.2 (0-0.7) k/uL Basophils # 0.0 (0-0.2) k/uL Sodium 140 (137-145) mmol/L Potassium 4.1 (3.5-5.1) mmol/L Chloride 112 H (98-107) mmol/L Carbon Dioxide 21 L (22-30) mmol/L Anion Gap 7 mmol/L BUN 22 H (9-20) mg/dL Creatinine 1.18 (0.66-1.25) mg/dL Est GFR (CKD-EPI)AfAm 74 (>60 ml/min/1.73 sqM) Est GFR (CKD-EPI)NonAf 64 (>60 ml/min/1.73 sqM) Glucose 96 (74-99) mg/dL Plasma Lactic Acid [place] 0.6 L (0.7-2.0) mmol/L Calcium 8.8 (8.4-10.2) mg/dL Total Bilirubin 0.8 (0.2-1.3) mg/dL AST 43 (17-59) U/L ALT 37 (4-49) U/L Alkaline Phosphatase 129 H (38-126) U/L Total Protein 7.0 (6.3-8.2) g/dL Albumin 4.0 (3.5-5.0) g/dL Amylase 74 (30-110) U/L Lipase 30 (23-300) U/L Disposition <Kellen Roa - Last Filed: 03/11/22 22:37> Time of Disposition: 01:49 <Dank Malik - Last Filed: 03/12/22 01:49> Clinical Impression: Small bowel obstruction Disposition: ADMITTED IP TO THIS HOSP Condition: Fair Referrals: Shaun Wang MD [Primary Care Provider] - 1-2 days
--- NOTE | 2022-03-12 00:06 | XR ---
EXAMINATION TYPE: XR KUB DATE OF EXAM: 03/11/2022 COMPARISON: 11/28/2021 HISTORY: Abdominal pain TECHNIQUE: 2 views upright FINDINGS: There are a few small bowel fluid levels. No free air. There is multilevel posterior lumbar spine fusion surgery. Lung bases are clear. There is bilateral hip prosthesis. IMPRESSION: There are multiple small bowel fluid levels that could relate to ileus or partial mechani emily obstruction. This is also present on previous exam. Dilation is improved.
[2022-03-12] MEDS ORDERED: SODIUM CHLORIDE 0.9% 1,000 ML IV STA (00:09)
[2022-03-12] MEDS ORDERED: ONDANSETRON 4 MG/2 ML VIAL IVP STA (00:09)
[2022-03-12] MEDS ORDERED: HYDROmorphone 0.5 MG/0.5 ML SYRINGE IVP STA (00:10)
[2022-03-12 00:35] LABS: Basophils % (A) 0 %; Eosinophils # (A) 0.2 k/uL (0-0.7); Eosinophils % (A) 3 %; HCT 40.7 % (39.0-53.0); HGB 12.9 gm/dL (13.0-17.5); Lymphocytes # (A) 1.6 k/uL (1.0-4.8); Lymphocytes % (A) 32 %; MCHC 31.6 g/dL (31.0-37.0); MCV 85.4 fL (80.0-100.0); Monocytes # (A) 0.3 k/uL (0-1.0); Monocytes % (A) 6 %; Neutrophils # (A) 2.8 k/uL (1.3-7.7); Neutrophils % (A) 56 %; Platelet Count 137 k/uL (150-450); RBC 4.76 m/uL (4.30-5.90); RDW 15.9 % (11.5-15.5)
[2022-03-12 00:43] LABS: Calcium 8.8 mg/dL (8.4-10.2); Potassium 4.1 mmol/L (3.5-5.1); Total Bilirubin 0.8 mg/dL (0.2-1.3)
--- NOTE | 2022-03-12 01:38 | CT ---
EXAMINATION TYPE: CT abdomen pelvis wo con DATE OF EXAM: 03/12/2022 COMPARISON: 12/07/2021 HISTORY: abd pain. hx of chronic bowel obstruction CT DLP: 1109.1 mGycm Automated exposure control for dose reduction was used. Images obtained from the diaphragm to the floor of the pelvis with the IV contrast The lung bases are clear of infiltrate. Heart size is normal. No pericardial effusion. Liver spleen a nd stomach pancreas gallbladder appear intact. The bile ducts are not dilated. There is no adrenal mass. There are multiple bilateral small renal calculi that measure up to 3 mm. N o hydronephrosis. Ureters are not dilated. No retroperitoneal adenopathy. Bladder distends smoothly. There is metal artifact from bilateral hip prosthesis. There is andres and screws fusing posteriorly the lumbar spine from L3 to L5. No lumbar compression fracture. There are multiple dilated fluid-filled loops of small bowel in the abdomen. Small bowel dilated up t o 4.3 cm. There are multiple surgical clips at the right colon. Small bowel likely dilated up to the ileocolic anastomosis. Distal ileum is dilated with fecal material and measures 4.4 cm. No free air. No ascites. The bony pelvis is intact. IMPRESSION: Mechanical small bowel obstruction at the ileocolic anastomosis. No free air. There is clearing of the pleural fluid and atelectasis at the lung bases compared to old exam small b owel obstruction is probably worse than last exam. There is clearing of the free air in the abdomen c ompared to old exam.
[2022-03-12] MEDS ORDERED: NALOXONE 0.4 MG/ML 1 ML VIAL IV PRN (01:49)
[2022-03-12] MEDS: SODIUM CHLORIDE 0.9% 1,000 ML IV SCH ×2 (02:10→15:23)
[2022-03-12] MEDS: HYDROmorphone 0.5 MG/0.5 ML SYRINGE IVP PRN ×7 (02:31→20:58)
--- NOTE | 2022-03-12 08:47 | P.CONS ---
History of Present Illness - Reason for Consult Consult date: 03/12/22 medical management - Chief Complaint Small bowel obstruction - History of Present Illness This is a 66-year-old male who was admitted last night for small bowel obstruction. He does have an extensive history of past obstructions. Patient reports some abdominal pain throughout the day yesterday, was able to eat dinner, and then last night before bed pain came severe and patient presented to the emergency room. Patient does report a bowel movement yesterday and was passing flatus up until last night. Patient resting comfortably in bed this morning, with NG tube in place. Review of Systems Constitutional: Denies chills, Denies fever Cardiovascular: Denies chest pain, Denies palpitations Respiratory: Denies cough, Denies dyspnea Gastrointestinal: Reports abdominal pain, Reports bloating Neurological: Denies headaches, Denies numbness Past Medical History Past Medical History: GERD/Reflux, Hearing Disorder / Deafness, Osteoarthritis (OA), Prostate Disorder Additional Past Medical History / Comment(s): Bowel obstructions, colitis, anemia, chronic back pain, DJD, BPH, gallbladder disease, deaf in R ear. History of Any Multi-Drug Resistant Organisms: MRSA Year Discovered:: 2014 MDRO Source:: nose Past Surgical History: Back Surgery, Bowel Resection, Hernia Repair, Joint Repla cement, Orthopedic Surgery Additional Past Surgical History / Comment(s): 11/16/21 lysis of adhesions, robotic small bowel decompression/extensive lysis of adhesions, colonoscopies, bilateral total hip arthroplasties/R hip twice, R total knee arthroplasty, ORIF clavicle/pin since removed, R inguinal hernia repair, pain clinic procedures. Past Anesthesia/Blood Transfusion Reactions: No Reported Reaction Additional Past Anesthesia/Blood Transfusion Reaction / Comm: No hx blood transfusion. Past Psychological History: No Psychological Hx Reported Smoking Status: Never smoker Past Alcohol Use History: None Reported Past Drug Use History: None Reported - Past Family History Father Family Medical History: Congestive Heart Failure (CHF) Brother(s) Family Medical History: Deep Vein Thrombosis (DVT) Medications and Allergies Home Medications Medication Instructions Recorded Confirmed Type oxyCODONE-APAP 10-325MG [Percocet 1 tab PO QID PRN 05/31/14 12/07/21 History 10-325 mg] carisoprodoL [Soma] 350 mg PO QID PRN 07/04/16 12/07/21 History Multivitamin [Men's Multi-Vitamin] 1 tab PO DAILY 10/14/16 12/07/21 History Cetirizine HCl [Zyrtec] 10 mg PO BID PRN 01/15/18 12/07/21 History Dutasteride [Avodart] 0.5 mg PO HS 03/16/20 12/07/21 History Iron Tab 27 mg PO DAILY 03/16/20 12/07/21 History Pantoprazole Sodium [Protonix] 40 mg PO DAILY 03/16/20 12/07/21 History Tamsulosin [Flomax] 0.8 mg PO HS 03/29/20 12/07/21 History tadalafiL [Cialis] 5 mg PO DAILY PRN 03/29/20 12/07/21 History Acetaminophen Tab [Tylenol] 1,000 mg PO Q6HR PRN #30 tablet 10/30/20 12/07/21 Rx Zolpidem [Ambien] 10 mg PO HS PRN 11/19/20 12/07/21 History Cyanocobalamin (Vitamin B-12) 1,000 mcg PO DAILY 01/04/21 12/07/21 History [Vitamin B-12] Naproxen 500 mg PO BID PRN 01/04/21 12/07/21 History amLODIPine [Norvasc] 5 mg PO DAILY 01/04/21 12/07/21 History Meloxicam [Mobic] 7.5 - 15 mg PO DAILY PRN 07/31/21 12/07/21 History Metoclopramide [Reglan] 10 mg PO ACHS #20 tab 11/21/21 12/07/21 Rx Lactulose [Cephulac] 30 gm PO DAILY PRN #400 ml 12/08/21 Rx Allergies Allergy/AdvReac Type Severity Reaction Status Date / Time No Known Allergies Allergy Verified 03/11/22 22:30 Physical Exam Vitals: Vital Signs Temp Pulse Resp BP Pulse Ox 03/12/22 06:00 53 L 16 147/89 100 03/12/22 03:00 61 16 173/94 100 03/11/22 22:30 98 F 61 18 177/98 100 Intake and Output 03/11/22 03/12/22 03/12/22 22:59 06:59 14:59 Other: Weight 104.326 kg - Constitutional General appearance: cooperative, no no acute distress - EENT Eyes: EOMI, PERRLA - Neck Neck: normal ROM, no rigidity - Respiratory Respiratory: bilateral: CTA - Cardiovascular Rhythm: regular Heart sounds: normal: S1, S2 - Gastrointestinal General gastrointestinal: decreased bowel sounds, distended - Psychiatric Psychiatric: A&O x's 3, appropriate affect, intact judgment & insight Results CBC & Chem 7: 03/12/22 00:16 03/12/22 00:16 Labs: Abnormal Lab Results - Last 24 Hours (Table) 03/12/22 03/12/22 03/12/22 Range/Units 00:16 00:16 00:16 Hgb 12.9 L (13.0-17.5) gm/dL RDW 15.9 H (11.5-15.5) % Plt Count 137 L (150-450) k/uL Chloride 112 H (98-107) mmol/L Carbon Dioxide 21 L (22-30) mmol/L BUN 22 H (9-20) mg/dL Plasma Lactic Acid Everette 0.6 L (0.7-2.0) mmol/L Alkaline Phosphatase 129 H (38-126) U/L Assessment and Plan (1) Small bowel obstruction Current Visit: Yes Status: Acute Code(s): K56.609 - UNSP INTESTNL OBST, UNSP TO PARTIAL VERSUS COMPLETE OBST SNOMED Code(s): 051730674 (2) Abdominal pain Current Visit: No Status: Acute Code(s): R10.9 - UNSPECIFIED ABDOMINAL PAIN SNOMED Code(s): 75336284 (3) DDD (degenerative disc disease), lumbar Current Visit: No Status: Acute Code(s): M51.36 - OTHER INTERVERTEBRAL DISC DEGENERATION, LUMBAR REGION SNOMED Code(s): 66853186 (4) BPH (benign prostatic hyperplasia) Current Visit: No Status: Acute Code(s): N40.0 - BENIGN PROSTATIC HYPERPLASIA WITHOUT LOWER URINRY TRACT SYMP SNOMED Code(s): 295574006 (5) Hearing disorder Current Visit: No Status: Acute Code(s): H91.90 - UNSPECIFIED HEARING LOSS, UNSPECIFIED EAR SNOMED Code(s): 777974288 Plan: Appreciate medical consult. Patient currently nothing by mouth and maintained on NG tube. Once cleared by surgeon we will reorder home medications. Await recommendations from surgeon. Patient seen and evaluated by nurse practitioner, physician in agreement with plan
--- NOTE | 2022-03-12 12:12 | P.GSHP ---
History of Present Illness H&P Date: 03/12/22 CHIEF COMPLAINT: Abdominal pain HISTORY OF PRESENT ILLNESS: This a 66-year-old male who presented with abdominal pain that came on suddenly yesterday evening. Patient reports symptoms started after eating spaghetti dinner. Prior to that patient had been having flatus and bowel movements earlier in the day and then after the pain started in the evening he has stopped having any flatus and no further bowel movements. He did report having nausea. No vomiting. The pain was in the middle of the abdomen just above the umbilicus. Patient reports that it feels like his prior bowel obstructions. Patient has had multiple small bowel obstructions due to adhesions and has required lysis of adhesions in the past. His last lysis of adhesions was in November [address] Steele. Patient has NG tube in place with 100 mL clearish output. Patient does report some improvement in his abdominal pain since placement of NG tube. He had a computed tomography scan of the abdomen and pelvis had shown on mechanical small bowel obstruction at the ileocolic anastomosis. PAST MEDICAL HISTORY: See list. PAST SURGICAL HISTORY: See list. MEDICATIONS: See list. ALLERGIES: See list. SOCIAL HISTORY: No illicit drug use. REVIEW OF SYSTEMS: CONSTITUTIONAL: Denies fever or chills. HEENT: Denies blurred vision, vision changes, or eye pain. Denies hemoptysis ENDOCRINE: Denies heat or cold intolerance. CARDIOVASCULAR: Denies chest pain or pressure. RESPIRATORY: No shortness of breath. GASTROINTESTINAL: please refer to HPI NEURO: Denies history of seizures. PSYCH: No depression or suicidal ideation HEMATOLOGIC: Denies bleeding disorders. LYMPHATIC: The patient denies any lumps and bumps around the neck. GENITOURINARY: Denies any blood in urine or increased urinary frequency. MUSCULOSKELETAL: Denies myalgias. Denies joint swelling. Denies decreased range of motion beyond patients baseline. SKIN: Denies pruitis. Denies rash. PHYSICAL EXAM: VITAL SIGNS: Reviewed GENERAL: Well-developed in no acute distress. HEENT: No sclera icterus. Extraocular movements grossly intact. Moist buccal mucosa. Head is atraumatic, normocephalic. Hears conversational speech. No nasal d rainage. NECK: Supple without lymphadenopathy. CHEST: Non-labored respirations and equal bilateral excursions. CARDIOVASCULAR: Palpable 2+ radial pulses. ABDOMEN: Soft. Mildly distended. Tenderness with palpation above the umbilicus MUSCULOSKELETAL: No clubbing or cyanosis. NEUROLOGIC: No focal or lateralizing signs. Cranial nerves II through XII grossly intact. PSYCH: Appropriate affect. Alert and oriented to person, place and time. SKIN: Well perfused. Good skin turgor. LABORATORY DATA: WBC 5.0 Hgb 12.9 platelets 137 Sodium 140 potassium 4.1 creatinine 1.18 Lactic acid 0.6 AST 43 ALT 37 alk phos 129 and lipase 30 IMAGING: KUB x-ray there are multiple small bowel fluid levels that could relate to ileus or partial mechanical obstruction. Computed tomography scan abdomen and pelvis mechanical small bowel obstruction at the ileocolic anastomosis. No free air. There is clearing of the pleural fluid and atelectasis at the lung bases compared to old exam. Small bowel obs truction is probably worse than last exam. There is clearing of the free air in the abdomen compared to old exam. ASSESSMENT: 1. Abdominal pain 2. Mechanical small bowel obstruction at the ileocolic anastomosis noted on CAT scan 3. History of small bowel section secondary to adhesions requiring multiple surgeries for lysis of adhesions. Last surgery was November 2021 4. History of multiple abdominal surgeries 5. GERD PLAN: -Small bowel follow-through ordered with Gastrografin for further evaluation of small bowel obstruction -Continue NG tube for decompression -Keep patient nothing by mouth except for ice chips -Continue IV fluids -Continue supportive care Physician Roundhouse Worker note has been reviewed by physician. Signing provider agrees with the documented findings, assessment, and plan of care. CHIEF COMPLAINT: Small bowel obstruction HISTORY OF PRESENT ILLNESS: The patient is a 66 year old male well-known to me with history of chronic recurrent small bowel obstructions. He had lysis of adhesions for bowel obstruction 3 months ago, November 2021. He was doing well since then. He presented to the ER with epigastric abdominal. He reports passing flatus and having a bowel movement the day he presented to the emergency room. He reports he felt worse after eating spaghetti prior to coming to the hospital. He reports fullness of the epigastrium. He has history of multiple abdominal surgeries due to peritoneal adhesions. He reports no improvement of his symptoms with an NG tube. He reports no output from his NG tube and no nausea. PAST MEDICAL HISTORY: See list and reviewed PAST SURGICAL HISTORY: See list and reviewed MEDICATIONS: See list and reviewed ALLERGIES: See list and reviewed SOCIAL HISTORY: See list and reviewed FAMILY HISTORY: See list and reviewed REVIEW OF ORGAN SYSTEMS: CONSTITUTIONAL: No fevers or chills. EYES: Denies any trouble with vision. Wears glasses. HEENT: No difficulties with hearing. No nosebleeds. No difficulty swallowing. RESPIRATORY: Denies pneumonia. Denies any troubles with breathing or dyspnea on exertion. CARDIOVASCULAR: Denies any chest pain, palpitations, or recent heart attacks. GASTROINTESTINAL: Had colonoscopy 2020. Recurrent small bowel obstructions. History of right inguinal hernia repair with bowel obstruction. History of small bowel resection. GENITOURINARY: Denies any blood in urine or increased urinary frequency. NEUROLOGICAL: Denies any numbness or tingling along the distal extremities. No seizure disorders or headaches. MUSCULOSKELETAL: Has back pain, stiffness or joint arthritis. SKIN: No current skin cancer. No rash. PSYCHIATRIC: Denies current depression or suicidal thoughts. ENDOCRINE: Denies current thyroid disorders. Denies any blood sugar glucose in tolerance. HEME/LYMPHATIC: Denies any lumps and bumps around the neck. No recent deep venous thrombosis. ALLERGY/IMMUNOLOGY: No immunoglobulin therapy. No immune deficiencies. BREAST: Denies current breast lumps, pain or nipple discharge. PHYSICAL EXAM: VITALS: Reviewed CONSTITUTIONAL: Well developed and in no acute distress. EYES: Conjuctivae without sclera icterus. Extraocular movements grossly intact. HEAD, EARS, NOSE, THROAT: Moist buccal mucosa. Head is atraumatic, normocephalic. Hears conversational speech. No nasal drainage. NG tube present, less than 100 mL output non-bilious. NECK: Supple. No JV distention. No thyroidomegaly. RESPIRATORY: Non-labored respirations and equal bilateral excursions. No gross wheezes. CARDIOVASCULAR: Regular rate and rhythm. Palpable 2+ radial pulses. ABDOMEN: Mild distention epigastrium. Well healed midline incision. No peritonitis. LYMPH: No neck lymphadenopathy. MUSCULOSKELETAL: Nail and fingers with good capillary refill. SKIN: Warm and well perfused with good skin turgor. NEUROLOGIC: Cranial nerves II through XII grossly intact.No focal or lateralizing signs. PSYCH: Appropriate affect. Alert and oriented to person, place and time. Displays appropriate insight. CLINCAL LABS: Reviewed. WBC normal 5.0. Hemoglobin 12.9, anemia. Creatinine 1.18, stage II chronic kidney disease. IMAGING: CT of the abdomen and pelvis and reviewed demonstrated dilated small bowel of the epigastrium. This is my independent interpretation. RADIOLOGY: Report reviewed CT of the abdomen and pelvis demonstrated presence of mechanical small bowel obstruction involving ileocolic anastomosis. ASSESSMENT: 1. Recurrent small bowel obstruction due to peritoneal adhesions 2. Anemia 3. Stage II chronic kidney disease due to hypertension. PLAN: 1. May discontinue NG tube as he reports no improvement of symptoms and no output. 2. Recommend small bowel follow through as he has history of recurrent small bowel obstruction involving multiple portions of his small bowel. 3. May have clear liquid diet in the interim. 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 History of Any Multi-Drug Resistant Organisms: MRSA Date of last positivie culture/infection: 2014 MDRO Source:: nose Past Surgical History: Back Surgery, Bowel Resection, Hernia Repair, Joint Replacement, Orthopedic Surgery Additional Past Surgical History / Comment(s): 11/16/21 lysis of adhesions, robotic small bowel decompression/extensive lysis of adhesions, colonoscopies, bilateral total hip arthroplasties/R hip twice, R total knee arth roplasty, ORIF clavicle/pin since removed, R inguinal hernia repair, pain clinic procedures. Past Anesthesia/Blood Transfusion Reactions: No Reported Reaction Additional Past Anesthesia/Blood Transfusion Reaction / Comment(s): No hx blood transfusion. Past Psychological History: No Psychological Hx Reported Smoking Status: Never smoker Past Alcohol Use History: None Reported Past Drug Use History: None Reported - Past Family History Father Family Medical History: Congestive Heart Failure (CHF) Brother(s) Family Medical History: Deep Vein Thrombosis (DVT) Medications and Allergies Home Medications Medication Instructions Recorded Confirmed Type oxyCODONE-APAP 10-325MG [Percocet 1 tab PO QID PRN 05/31/14 03/12/22 History 10-325 mg] carisoprodoL [Soma] 350 mg PO QID PRN 07/04/16 03/12/22 History Multivitamin [Men's Multi-Vitamin] 1 tab PO DAILY 10/14/16 03/12/22 History Cetirizine HCl [Zyrtec] 10 mg PO BID PRN 01/15/18 03/12/22 History Dutasteride [Avodart] 0.5 mg PO HS 03/16/20 03/12/22 History Iron Tab 1 tab PO DAILY 03/16/20 03/12/22 History Pantoprazole Sodium [Protonix] 40 mg PO DAILY 03/16/20 03/12/22 History Tamsulosin [Flomax] 0.8 mg PO HS 03/29/20 03/12/22 History tadalafiL [Cialis] 5 mg PO DAILY PRN 03/29/20 03/12/22 History Acetaminophen Tab [Tylenol] 1,000 mg PO Q6HR PRN #30 tablet 10/30/20 03/12/22 Rx Zolpidem [Ambien] 10 mg PO HS PRN 11/19/20 03/12/22 History Cyanocobalamin (Vitamin B-12) 1,000 mcg PO DAILY 01/04/21 03/12/22 History [Vitamin B-12] Naproxen 500 mg PO BID PRN 01/04/21 03/12/22 History amLODIPine [Norvasc] 5 mg PO DAILY 01/04/21 03/12/22 History Allergies Allergy/AdvReac Type Severity Reaction Status Date / Time No Known Allergies Allergy Verified 03/12/22 10:53 Surgical - Exam Vital Signs Temp Pulse Resp BP Pulse Ox 98 F 61 18 177/98 100 03/11/22 22:30 03/11/22 22:30 03/11/22 22:30 03/11/22 22:30 03/11/22 22:30 Results - Labs 03/12/22 00:16 03/12/22 00:16 Abnormal Lab Results - Last 24 Hours (Table) 03/12/22 03/12/22 03/12/22 Range/Units 00:16 00:16 00:16 Hgb 12.9 L (13.0-17.5) gm/dL RDW 15.9 H (11.5-15.5) % Plt Count 137 L (150-450) k/uL Chloride 112 H (98-107) mmol/L Carbon Dioxide 21 L (22-30) mmol/L BUN 22 H (9-20) mg/dL Plasma Lactic Acid Everette 0.6 L (0.7-2.0) mmol/L Alkaline Phosphatase 129 H (38-126) U/L Diabetes panel 03/12/22 Range/Units 00:16 Sodium 140 (137-145) mmol/L Potassium 4.1 (3.5-5.1) mmol/L Chloride 112 H (98-107) mmol/L Carbon Dioxide 21 L (22-30) mmol/L BUN 22 H (9-20) mg/dL Creatinine 1.18 (0.66-1.25) mg/dL Glucose 96 (74-99) mg/dL Calcium 8.8 (8.4-10.2) mg/dL AST 43 (17-59) U/L ALT 37 (4-49) U/L Alkaline Phosphatase 129 H (38-126) U/L Total Protein 7.0 (6.3-8.2) g/dL Albumin 4.0 (3.5-5.0) g/dL Calcium panel 03/12/22 Range/Units 00:16 Calcium 8.8 (8.4-10.2) mg/dL Albumin 4.0 (3.5-5.0) g/dL Pituitary panel 03/12/22 Range/Units 00:16 Sodium 140 (137-145) mmol/L Potassium 4.1 (3.5-5.1) mmol/L Chloride 112 H (98-107) mmol/L Carbon Dioxide 21 L (22-30) mmol/L BUN 22 H (9-20) mg/dL Creatinine 1.18 (0.66-1.25) mg/dL Glucose 96 (74-99) mg/dL Calcium 8.8 (8.4-10.2) mg/dL Adrenal panel 03/12/22 Range/Units 00:16 Sodium 140 (137-145) mmol/L Potassium 4.1 (3.5-5.1) mmol/L Chloride 112 H (98-107) mmol/L Carbon Dioxide 21 L (22-30) mmol/L BUN 22 H (9-20) mg/dL Creatinine 1.18 (0.66-1.25) mg/dL Glucose 96 (74-99) mg/dL Calcium 8.8 (8.4-10.2) mg/dL Total Bilirubin 0.8 (0.2-1.3) mg/dL AST 43 (17-59) U/L ALT 37 (4-49) U/L Alkaline Phosphatase 129 H (38-126) U/L Total Protein 7.0 (6.3-8.2) g/dL Albumin 4.0 (3.5-5.0) g/dL
[2022-03-12] MEDS: ONDANSETRON 4 MG/2 ML VIAL IVP PRN (15:23)
[2022-03-12] MEDS ORDERED: ZOLPIDEM 5 MG TAB PO PRN ×2 (23:42→23:43)
[2022-03-12] MEDS ORDERED: carisoprodoL 350 MG TAB PO PRN (23:54)
[2022-03-13] MEDS: HYDROmorphone 0.5 MG/0.5 ML SYRINGE IVP PRN ×3 (03:52→11:52)
[2022-03-13] MEDS: SODIUM CHLORIDE 0.9% 1,000 ML IV SCH (06:18)
[2022-03-13] MEDS ORDERED: PANTOPRAZOLE 40 MG TABLET PO SCH (07:30)
[2022-03-13] MEDS ORDERED: LORATADINE 10 MG TAB PO SCH (09:00)
[2022-03-13] MEDS ORDERED: CYANOCOBALAMIN 500 MCG TAB PO SCH (09:00)
[2022-03-13] MEDS ORDERED: amLODIPine 5 MG TAB PO SCH (09:00)
[2022-03-13] MEDS ORDERED: FINASTERIDE 5 MG TAB PO SCH (09:00)
[2022-03-13] MEDS ORDERED: NAPROXEN 250 MG TAB PO SCH (09:00)
[2022-03-13] MEDS: ONDANSETRON 4 MG/2 ML VIAL IVP PRN (11:52)
[2022-03-13 14:22] VITALS: BP 109/73; PULSE 64; RESP 20; TEMP 98.5
--- NOTE | 2022-03-13 14:56 | P.DS ---
Providers Date of admission: 03/12/22 01:50 Expected date of discharge: 03/13/22 Attending physician: Lizet Steele Primary care physician: Shaun Wang Hospital Course: Discharge diagnosis 1. Recurrent small bowel obstruction due to peritoneal adhesions managed conservatively 2. Stage II chronic kidney disease due to hypertension. 3. History of small bowel section secondary to adhesions requiring multiple surgeries for lysis of adhesions. Last surgery was November 2021 4. History of multiple abdominal surgeries 5. GERD Hospital course This is a 66-year-old male with a known history of recurrent small bowel obstruction secondary to adhesions. Patient presented to the hospital with complaints of abdominal pain after eating a spaghetti dinner. He stopped having bowel movements and flatus. Computed tomography scan abdomen and pelvis had shown mechanical small bowel obstruction at the ileocolic anastomosis. Patient had NG tube placed in ER. NG tube was discontinued due to minimal output. Patient underwent small bowel follow-through x-ray and after ingesting the Gastrografin patient started to have flatus and has had 4 bowel movements today. He reports improvement in his abdominal pain. Has been tolerating diet. He is afebrile. He has been up and ambulating. He is requesting to be discharged home. Patient is stable for discharge. Patient will be given a sandwich prior to discharge. If he tolerates sandwich he will be discharged home today. Physician Justowriter Operator note has been reviewed by physician. Signing provider agrees with the documented findings, assessment, and plan of care. As above. Patient presented with acute small bowel obstruction. He was given Gastrografin challenge with small bowel follow-through. Symptoms had resolved. Gastrografin study demonstrated no obstruction other than ileus. Patient tolerated diet stable for discharge. Follow-up as outpatient. RADIOLOGY: Report reviewed small bowel follow-through demonstrates no obstruction. Findings consistent with ileus. Patient Condition at Discharge: Stable Plan - Discharge Summary Discharge Rx Participant: No New Discharge Prescriptions: Continue oxyCODONE-APAP 10-325MG [Percocet 10-325 mg] 1 tab PO QID PRN PRN Reason: Pain carisoprodoL [Soma] 350 mg PO QID PRN PRN Reason: Pain Multivitamin [Men's Multi-Vitamin] 1 tab PO DAILY Cetirizine HCl [Zyrtec] 10 mg PO BID PRN PRN Reason: Allergy Symptoms Dutasteride [Avodart] 0.5 mg PO HS Pantoprazole Sodium [Protonix] 40 mg PO DAILY Iron Tab 1 tab PO DAILY Tamsulosin [Flomax] 0.8 mg PO HS tadalafiL [Cialis] 5 mg PO DAILY PRN PRN Reason: E.D. Acetaminophen Tab [Tylenol] 1,000 mg PO Q6HR PRN #30 tablet PRN Reason: Pain Zolpidem [Ambien] 10 mg PO HS PRN PRN Reason: Insomnia Naproxen 500 mg PO BID PRN PRN Reason: Pain Cyanocobalamin (Vitamin B-12) [Vitamin B-12] 1,000 mcg PO DAILY amLODIPine [Norvasc] 5 mg PO DAILY Discharge Medication List oxyCODONE-APAP 10-325MG [Percocet 10-325 mg] 1 tab PO QID PRN 05/31/14 [History] carisoprodoL [Soma] 350 mg PO QID PRN 07/04/16 [History] Multivitamin [Men's Multi-Vitamin] 1 tab PO DAILY 10/14/16 [History] Cetirizine HCl [Zyrtec] 10 mg PO BID PRN 01/15/18 [History] Dutasteride [Avodart] 0.5 mg PO HS 03/16/20 [History] Iron Tab 1 tab PO DAILY 03/16/20 [History] Pantoprazole Sodium [Protonix] 40 mg PO DAILY 03/16/20 [History] Tamsulosin [Flomax] 0.8 mg PO HS 03/29/20 [History] tadalafiL [Cialis] 5 mg PO DAILY PRN 03/29/20 [History] Acetaminophen Tab [Tylenol] 1,000 mg PO Q6HR PRN #30 tablet 10/30/20 [Rx] Zolpidem [Ambien] 10 mg PO HS PRN 11/19/20 [History] Cyanocobalamin (Vitamin B-12) [Vitamin B-12] 1,000 mcg PO DAILY 01/04/21 [History] Naproxen 500 mg PO BID PRN 01/04/21 [History] amLODIPine [Norvasc] 5 mg PO DAILY 01/04/21 [History] Follow up Appointment(s)/Referral(s): Shaun Wang MD [Primary Care Provider] - 1-2 days (Please call office during bussiness hours to make appointment) Lizet Steele MD [STAFF PHYSICIAN] - As Needed Discharge Disposition: HOME SELF-CARE
--- NOTE | 2022-03-13 15:15 | P.PN ---
Subjective Progress Note Date: 03/13/22 Principal diagnosis: This is a 66-year-old -Russian male with suffers from small bowel obstruction related to adhesions. He was admitted yesterday for significant mechanical small bowel obstruction. However after having Gastrografin for repeat CT, he had appropriate bowel movements and is now stabilizing. Anticipate discharge given his overall symptomatology. Otherwise no new complaints. Tolerating diet emulating without difficulty. Appropriate bowel movements and flatus Objective - Vital Signs Vital signs: Vital Signs Temp 98.5 F 03/13/22 14:00 Pulse 64 03/13/22 14:00 Resp 20 03/13/22 14:00 BP 109/73 03/13/22 14:00 Pulse Ox 94 L 03/13/22 08:00 FiO2 Intake & Output 03/12/22 03/13/22 03/13/22 18:59 06:59 18:59 Intake Total 0 300 Output Total 1000 3 Balance 0 -700 -3 Weight 104.326 kg Intake: Oral 0 300 Output: Urine 1000 Stool 3 Other: Voiding Method Toilet Toilet Toilet Urinal Urinal Urinal # Voids 2 2 1 - Constitutional General appearance: Present: cooperative. Absent: no acute distress - Neck Neck: Absent: lymphadenopathy - Cardiovascular Rhythm: regular Heart sounds: normal: S1, S2 - Gastrointestinal General gastrointestinal: Present: normal bowel sounds, soft - Integumentary Integumentary: Absent: cellulitis - Psychiatric Psychiatric: Present: A&O x's 3 - Labs CBC & Chem 7: 03/12/22 00:16 03/12/22 00:16 Assessment and Plan (1) Small bowel obstruction Current Visit: Yes Status: Acute Code(s): K56.609 - UNSP INTESTNL OBST, UNSP TO PARTIAL VERSUS COMPLETE OBST SNOMED Code(s): 605490597 (2) MEMO (acute kidney injury) Current Visit: No Status: Acute Code(s): N17.9 - ACUTE KIDNEY FAILURE, UNSPECIFIED SNOMED Code(s): 40705030 Plan: Anticipate discharge. The patient is medications and diet. Follow-up with me in about a week
--- NOTE | 2022-03-13 16:43 | FL ---
EXAMINATION TYPE: FL small bowel follow through DATE OF EXAM: 03/13/2022 COMPARISON: None HISTORY: Small bowel obstruction TECHNIQUE: Sequential overhead radiographs were obtained following the oral administration of 8 ounce s Gastrografin. FINDINGS: Multiple prominent small bowel loops are present. However, no focal stenosis or delay of pa ssage of contrast is evident. Transit time to the colon is 2 hours. The terminal ileum as visualized is normal. Real-time observation is performed. Loops of bowel appeared be freely mobile. Fluoroscopy time: 41 seconds Images: 11 IMPRESSION: 1. There may be some mild residual ileus. Transit time however is normal. No focal stenosis or obstr uction evident.
[2022-03-13] MEDS ORDERED: TAMSULOSIN 0.4 MG CAP.ER.24H PO SCH ×2 (21:00)
== END 2022-03-13 16:00 | disposition home or self-care (01) | DRG 389 ==
LOC: EC 21:54 → 4SSUR 03-12 01:50 → 1SOBS 03-12 12:03 → 2SICU 03-12 18:43
PROVIDERS: ADMIT Surgery Plastic and Reconstructive Surgery; ATTEND Surgery Plastic and Reconstructive Surgery
PROC: 0D9670Z Drainage of Stomach with Drainage Device, Via Natural or Artificial Opening (ICD-10-PCS; principal; 2022-03-12)
DX: K56.50 Intestinal adhesions [bands], unspecified as to partial versus complete obstruction (principal); N17.9 Acute kidney failure, unspecified; K56.7 Ileus, unspecified; K52.9 Noninfective gastroenteritis and colitis, unspecified; D64.9 Anemia, unspecified; M51.36 Other intervertebral disc degeneration, lumbar region; N18.2 Chronic kidney disease, stage 2 (mild); N40.0 Benign prostatic hyperplasia without lower urinary tract symptoms; G89.29 Other chronic pain; I12.9 Hypertensive chronic kidney disease with stage 1 through stage 4 chronic kidney disease, or unspecified chronic kidney disease; M54.9 Dorsalgia, unspecified; H91.91 Unspecified hearing loss, right ear; M19.90 Unspecified osteoarthritis, unspecified site; K21.9 Gastro-esophageal reflux disease without esophagitis; Z86.14 Personal history of Methicillin resistant Staphylococcus aureus infection; Z79.899 Other long term (current) drug therapy; Z96.651 Presence of right artificial knee joint; Z96.643 Presence of artificial hip joint, bilateral
CPT/HCPCS: 36415; 74018; 74176; 74250; 80053; 82150; 83605; 83690; 85025; 96361; 96374; 96375; 96376; 99285

== ENCOUNTER 2022-10-29 09:12 | Emergency (ER) | payer MEDICARE, OTHER ==
[2022-10-29 09:20] VITALS: TEMP 97.2
[2022-10-29] MEDS ORDERED: FAMOTIDINE 20 MG/2 ML VIAL IV STA (09:44)
[2022-10-29] MEDS ORDERED: diphenhydrAMINE 50 MG/ML 1 ML VIAL IVP STA (09:44)
[2022-10-29] MEDS ORDERED: methylPREDNISolone SOD SUCCI 125 MG/2 ML VIAL IV STA (09:44)
[2022-10-29] MEDS ORDERED: SODIUM CHLORIDE 0.9% 1,000 ML IV STA (09:45)
[2022-10-29 10:12] LABS: Anisocytosis Slight; Basophils % (A) 0 %; Eosinophils # (A) 0.1 k/uL (0-0.7); Eosinophils % (A) 1 %; HCT 41.3 % (39.0-53.0); HGB 13.2 gm/dL (13.0-17.5); Lymphocytes # (A) 1.9 k/uL (1.0-4.8); Lymphocytes % (A) 31 %; MCH 28.2 pg (25.0-35.0); Mean Platelet Volume 9.8; Monocytes # (A) 0.4 k/uL (0-1.0); Monocytes % (A) 6 %; Neutrophils # (A) 3.7 k/uL (1.3-7.7); Neutrophils % (A) 61 %; Platelet Count 155 k/uL (150-450); RBC 4.69 m/uL (4.30-5.90); RDW 16.3 % (11.5-15.5); WBC 6.1 k/uL (3.8-10.6)
[2022-10-29 10:25] LABS: ALT 23 U/L (4-49); AST 31 U/L (17-59); African American GFR (CKD) 78 (>60 ml/min/1.73 sqM); Albumin 3.3 g/dL (3.5-5.0); Alkaline Phosphatase 99 U/L (38-126); Anion Gap 6 mmol/L; Blood Urea Nitrogen 17 mg/dL (9-20); Calcium 8.4 mg/dL (8.4-10.2); Carbon Dioxide 25 mmol/L (22-30); Chloride 108 mmol/L (98-107); Glucose 96 mg/dL (74-99); Non-African American GFR(CKD) 68 (>60 ml/min/1.73 sqM); Potassium 3.9 mmol/L (3.5-5.1); Sodium 139 mmol/L (137-145); Total Bilirubin 0.5 mg/dL (0.2-1.3); Total Protein 6.2 g/dL (6.3-8.2)
--- NOTE | 2022-10-29 10:40 | ED ---
General Adult HPI - General Chief complaint: Allergic Reaction Stated complaint: Swelling in face Time Seen by Provider: 10/29/22 09:26 Source: patient, RN notes reviewed, old records reviewed Mode of arrival: ambulatory Limitations: no limitations - History of Present Illness Initial comments: Patient is a 66-year-old male who presents emergency Department complaining of facial swelling. Patient states that since last week has been noticing some ski n itchiness as well as occasional wheals on the skin. Concerned he may be having ALLERGIC reaction to something at home his symptoms improved when he is away. Woke this morning complaining of facial swelling around his mouth. Mild upper lip swelling. No intraoral swelling. No tongue swelling. No difficulty breathing or swallowing. No chest pain or shortness of breath. No abdominal pain, nausea, vomiting. No other acute complaints at this time. Presents over concern for possible ALLERGIC reaction. Symptoms have not changed much since awakening this morning. No significant worsening swelling. - Related Data Home Medications Medication Instructions Recorded Confirmed oxyCODONE-APAP 10-325MG [Percocet 1 tab PO QID PRN 05/31/14 10/29/22 10-325 mg] carisoprodoL [Soma] 350 mg PO QID PRN 07/04/16 10/29/22 Cetirizine HCl [Zyrtec] 10 mg PO DAILY 01/15/18 10/29/22 Dutasteride [Avodart] 0.5 mg PO HS 03/16/20 10/29/22 Pantoprazole Sodium [Protonix] 40 mg PO DAILY 03/16/20 10/29/22 Tamsulosin [Flomax] 0.8 mg PO HS 03/29/20 10/29/22 tadalafiL [Cialis] 5 mg PO DAILY PRN 03/29/20 10/29/22 Zolpidem [Ambien] 10 mg PO HS 11/19/20 10/29/22 amLODIPine [Norvasc] 5 mg PO DAILY 01/04/21 10/29/22 Ibuprofen [Motrin] 800 mg PO TID PRN 10/29/22 10/29/22 Levocetirizine Dihydrochloride 5 mg PO DAILY 10/29/22 10/29/22 [Xyzal] Previous Rx's Medication Instructions Recorded Amoxic-Pot Clav 875-125Mg 1 tab PO Q12HR 5 Days #10 tab 09/12/23 [Augmentin 875-125] Famotidine 20 mg PO DAILY 7 Days #7 tab 10/29/22 predniSONE [Deltasone] 40 mg PO DAILY 5 Days #10 tab 10/29/22 Allergies Allergy/AdvReac Type Severity Reaction Status Date / Time No Known Allergies Allergy Verified 10/29/22 11:34 Review of Systems ROS Statement: Those systems with pertinent positive or pertinent negative responses have been documented in the HPI. Review of Systems: CONST: Denies fever EYES: Denies blurry vision ENT: Denies nasal congestion C/V: Denies Chest pain RESP: Denies shortness of breath GI: Denies abdominal pain : Denies dysuria SKIN: Endorses facial swelling MSK: Denies joint pain. NEURO: Denies headache ROS Other: All systems not noted in ROS Statement are negative. 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 History of Any Multi-Drug Resistant Organisms: MRSA Date of last positivie culture/infection: 2014 MDRO Source:: nose Past Surgical History: Back Surgery, Bowel Resection, Hernia Repair, Joint Replacement, Orthopedic Surgery Additional Past Surgical History / Comment(s): 11/16/21 lysis of adhesions, robotic small bowel decompression/extensive lysis of adhesions, colonoscopies, bilateral total hip arthroplasties/R hip twice, R total knee arthroplasty, ORIF clavicle/pin since removed, R inguinal hernia repair, pain clinic procedures. Past Anesthesia/Blood Transfusion Reactions: No Reported Reaction Additional Past Anesthesia/Blood Transfusion Reaction / Comment(s): No hx blood transfusion. Past Psychological History: No Psychological Hx Reported Smoking Status: Never smoker Past Alcohol Use History: None Reported Past Drug Use History: None Reported - Past Family History Father Family Medical History: Congestive Heart Failure (CHF) Brother(s) Family Medical History: Deep Vein Thrombosis (DVT) Mother Family Medical History: No Reported History General Exam - General Exam Comments Initial Comments: General: Appears in no acute distress. HEAD: Normal with no signs of head trauma. EYES: PERRLA, EOMI, conjunctiva normal, no discharge. ENT: Hearing grossly intact, normal posterior oropharynx. Uvula midline. No posterior oropharyngeal edema. No tongue edema. No obvious florid mild swelling. Patient does have some lower chin swelling as well as perioral edema and mild swelling of the upper lip. No stridor. Tolerating secretions. RESPIRATORY: Clear breath sounds bilaterally. No wheezes, rales, or rhonchi. C/V: Regular rate and rhythm. S1 and S2 auscultated, no edema, peripheral pulses 2+ and intact throughout ABD: Abd is soft, nontender, nondistended EXT: Normal range of motion, no obvious deformity SKIN: No rashes or lesions observed on exposed skin. NEURO: Alert and oriented 4. Limitations: no limitations Course Vital Signs 10/29/22 10/29/22 09:16 11:50 Temperature 97.2 F L Pulse Rate 49 L 72 Respiratory 16 18 Rate Blood Pressure 130/72 122/59 O2 Sat by Pulse 100 97 Oximetry Medical Decision Making - Medical Decision Making Was pt. sent in by a medical professional or institution (, PA, DETAIL ASSEMBLER, urgent care, hospital, or penitentiary...) When possible be specific @ -No Did you speak to anyone other than the patient for history (EMS, parent, family, police, friend...)? What history was obtained from this source @ -No Did you review nursing and triage notes (agree or disagree)? Why? @ -I reviewed and agree with nursing and triage notes Were old charts reviewed (outside hosp., previous admission, EMS record, old EKG, old radiological studies, urgent care reports/EKG's, penitentiary records)? Report findings @ -No old charts were reviewed Differential Diagnosis (chest pain, altered mental status, abdominal pain women, abdominal pain men, vaginal bleeding, weakness, fever, dyspnea, syncope, headache, dizziness, GI bleed, back pain, seizure, CVA, palpatations, mental health, musculoskeletal)? @ -ALLERGIC reaction, ludwigs angina, cellulitis, angioedema. This list is not all inclusive. EKG interpreted by me (3pts min.). @ -None done X-rays interpreted by me (1pt min.). @ -None done CT interpreted by me (1pt min.). @ -CT revealed no evidence of Joshua angina. ALLERGIC reaction versus cellulitis etiology U/S interpreted by me (1pt. min.). @ -None done What testing was considered but not performed or refused? (CT, X-rays, U/S, labs)? Why? @ -None What meds were considered but not given or refused? Why? @ -None Did you discuss the management of the patient with other professionals (professionals i.e. , PA, DETAIL ASSEMBLER, lab, RT, psych nurse, social and political studies professor, mercury cracking tester, teacher, precinct commanding officer, piano case and bench assembler)? Give summary @ -No Was smoking cessation discussed for >3mins.? @ -No Was critical care preformed (if so, how long)? @ -No Were there social determinants of health that impacted care today? How? (Homelessness, low income, unemployed, alcoholism, drug addiction, transportation, low edu. Level, literacy, decrease access to med. care, fdc, rehab)? @ -No Was there de-escalation of care discussed even if they declined (Discuss DNR or withdrawal of care, Hospice)? DNR status @ -No What co-morbidities impacted this encounter? (DM, HTN, Smoking, COPD, CAD, Cancer, CVA, ARF, Chemo, Hep., AIDS, mental health diagnosis, sleep apnea, morbid obesity)? @ -None Was patient admitted / discharged? Hospital course, mention meds given and route, prescriptions, significant lab abnormalities, going to OR and other pertinent info. @ -Based on the patient's presentation and physical exam, presents complaining of facial swelling. Concern for possible ALLERGIC reaction versus Joshua angina. Does not appear to be on the lisinopril or BHAVESH inhibitor. Lower suspicion for angioedema. We will obtain basic labs and I did discuss with him obtain CT imaging to evaluate for blood legs which she was in agreement. Lower suspicion for blood rate but due to the sudden onset of symptoms like to obtain. Patient was in agreement with this plan. Vital signs within acceptable limits. No airway compromise. Tolerated secretions. Patient was in agreement this plan. He will receive a 1 L fluid bolus, as well as IV Pepcid, Benadryl, Solu-Medrol. Patient's laboratory studies are within acceptable limits.CT imaging shows no evidence of Joshua angina. ALLERGIC reaction versus cellulitis. I did the patient. Symptoms of not changed. He has not worsening. We discussed the workup. I believe it is safe to be discharged home. We discussed possible etiology we will cover with an antibiotic empirically for possible sailors is likely an ALLERGIC reaction. He is in agreement this plan. Strict return precautions discussed. Patient is not on lisinopril or other BHAVESH i nhibitor. I will provide the patient with a prescription for Pepcid, prednisone, Augme ntin. I instructed the patient to follow up with their PCP in the next 1-3 days. I explained that the patient should return to the emergency department if they experience any worsening symptoms. Strict return precautions were discussed with the patient. The patient expressed understanding of these instructions. I answered all questions that the patient had. The patient was discharged home in good condition with their prescriptions and follow up information. Undiagnosed new problem with uncertain prognosis? @ -No Drug Therapy requiring intensive monitoring for toxicity (Heparin, Nitro, Insulin, Cardizem)? @ -No Were any procedures done? @ -No Diagnosis/symptom? @ -Facial ALLERGIC reaction versus localized cellulitis Acute, or Chronic, or Acute on Chronic? @ -Acute Uncomplicated (without systemic symptoms) or Complicated (systemic symptoms)? @ -Uncomplicated Side effects of treatment? @ -none Exacerbation, Progression, or Severe Exacerbation] @ -no Poses a threat to life or bodily function? @ -no - Lab Data Result diagrams: 10/29/22 09:59 10/29/22 09:59 Lab Results 10/29/22 10/29/22 Range/Units 09:59 09:59 WBC 6.1 (3.8-10.6) k/uL RBC 4.69 (4.30-5.90) m/uL Hgb 13.2 (13.0-17.5) gm/dL Hct 41.3 (39.0-53.0) % MCV 88.0 (80.0-100.0) fL MCH 28.2 (25.0-35.0) pg MCHC 32.0 (31.0-37.0) g/dL RDW 16.3 H (11.5-15.5) % Plt Count 155 (150-450) k/uL MPV 9.8 Neutrophils % 61 % Lymphocytes % 31 % Monocytes % 6 % Eosinophils % 1 % Basophils % 0 % Neutrophils # 3.7 (1.3-7.7) k/uL Lymphocytes # 1.9 (1.0-4.8) k/uL Monocytes # 0.4 (0-1.0) k/uL Eosinophils # 0.1 (0-0.7) k/uL Basophils # 0.0 (0-0.2) k/uL Anisocytosis Slight Sodium 139 (137-145) mmol/L Potassium 3.9 (3.5-5.1) mmol/L Chloride 108 H (98-107) mmol/L Carbon Dioxide 25 (22-30) mmol/L Anion Gap 6 mmol/L BUN 17 (9-20) mg/dL Creatinine 1.14 (0.66-1.25) mg/dL Est GFR (CKD-EPI)AfAm 78 (>60 ml/min/1.73 sqM) Est GFR (CKD-EPI)NonAf 68 (>60 ml/min/1.73 sqM) Glucose 96 (74-99) mg/dL Calcium 8.4 (8.4-10.2) mg/dL Total Bilirubin 0.5 (0.2-1.3) mg/dL AST 31 (17-59) U/L ALT 23 (4-49) U/L Alkaline Phosphatase 99 (38-126) U/L Total Protein 6.2 L (6.3-8.2) g/dL Albumin 3.3 L (3.5-5.0) g/dL Disposition Clinical Impression: Allergic reaction, Facial swelling Narrative: possible cellulitis Disposition: HOME SELF-CARE Condition: Fair Instructions (If sedation given, give patient instructions): Urticaria (ED), Cellulitis (ED) Prescriptions: Amoxic-Pot Clav 875-125Mg [Augmentin 875-125] 1 tab PO Q12HR 5 Days #10 tab predniSONE [Deltasone] 40 mg PO DAILY 5 Days #10 tab Famotidine 20 mg PO DAILY 7 Days #7 tab Is patient prescribed a controlled substance at d/c from ED?: No Referrals: Shaun Wang MD [Primary Care Provider] - 1-2 days Time of Disposition: 11:25
--- NOTE | 2022-10-29 10:54 | CT ---
EXAMINATION TYPE: CT soft tissue neck w con DATE OF EXAM: 10/29/2022 COMPARISON: None HISTORY: unknown allergic reaction CT DLP: 500.8 mGycm CONTRAST: CT scan of the neck is performed with IV Contrast, patient injected with 100mL mL of Isovue 300. Contrast enhanced CT of the neck was performed from the skull base through the lung apices. There is periorbital and perimandibular soft tissue edema noted without distinct abscess. The finding s could be related to allergic reaction versus cellulitis. Correlate clinically. AIRWAY: The supraglottic, glottic, and subglottic portions of the airway free of mass. Airway is mi ldly narrowed at the level of the vocal cords measuring 5.2 mm in transverse dimension and 1.3 cm in AP dimension. The airway is otherwise patent. SALIVARY GLANDS: The submandibular and parotid glands are free of mass or inflammatory process. THYROID GLAND: No nodules or masses seen. LYMPH NODES: No adenopathy seen greater than 1cm. LUNG APICES: No nodule or mass is seen. OTHER: Vascular structures are patent. No significant degenerative change of the cervical spine. N o abscess seen. IMPRESSION: 1.There is periorbital and perimandibular soft tissue edema noted without distinct abscess. The findi ngs could be related to allergic reaction versus cellulitis. Correlate clinically. 2. Mild airway narrowing at the level of the vocal cords
[2022-10-29] MEDS ORDERED: AMOXIC-POT CLAV 875-125MG 1 EACH TAB PO STA (11:36)
[2022-10-29 11:51] VITALS: BP 122/59; PULSE 72; RESP 18
== END 2022-10-29 11:56 | disposition home or self-care (01) ==
LOC: EC 09:12
DX: R22.0 Localized swelling, mass and lump, head (principal); K21.9 Gastro-esophageal reflux disease without esophagitis; M19.90 Unspecified osteoarthritis, unspecified site; Z79.899 Other long term (current) drug therapy
CPT/HCPCS: 36415; 80053; 85025; 70491; 99284; 96374; 96375 ×2; 96361; J1200; J2930; J3490; Q9967

== ENCOUNTER → 2022-11-06 | Outpatient (CLI) | payer MEDICARE, OTHER ==
[2022-11-07 02:31] LABS: Alternaria alternata IgE <0.10 kU/L; Birch IgE >100.00 kU/L; Dog Dander IgE 1.18 kU/L; Elm IgE <0.10 kU/L; Ragweed,Common IgE <0.10 kU/L
[2022-11-07 02:32] LABS: Aspergillus fumagatus IgE <0.10 kU/L; Cladosporian herbarum IgE <0.10 kU/L
[2022-11-07 10:48] LABS: Meadow Fescue IgE 9.92 kU/L (<0.10); Meadow Fescue IgE Class CLASS 3; Pecan IgE <0.10 kU/L (<0.10); Pecan IgE Class CLASS 0; Timothy Grass IgE Class CLASS 3
[2022-11-07 10:49] LABS: Latex IgE Class CLASS 0; Meadow Grs (KY blue) IgE Class CLASS 3
[2022-11-07 10:50] LABS: Penicillium notatum IgE Class CLASS 0; Sycamore(Mpl.Lf) IgE <0.10 kU/L (<0.10); Sycamore(Mpl.Lf) IgE Class CLASS 0; Willow Tree IgE <0.10 kU/L (<0.10); Willow Tree IgE Class CLASS 0
[2022-11-07 10:51] LABS: Cottonwood IgE <0.10 kU/L (<0.10)
[2022-11-07 10:52] LABS: Beech IgE Class CLASS 4; Goldenrod IgE 0.16 kU/L (<0.10); Goldenrod IgE Class CLASS 0/1
[2022-11-07 10:53] LABS: English Plantain IgE Class CLASS 0/1; Ragweed, Giant IgE <0.10 kU/L (<0.10); Ragweed, Giant IgE Class CLASS 0; Sheep Sorrel IgE <0.10 kU/L (<0.10); Sheep Sorrel IgE Class CLASS 0
== END | disposition home or self-care (01) ==
LOC: LABWHC1 08:28
PROVIDERS: ATTEND Internal Medicine
DX: J31.0 Chronic rhinitis (principal)
CPT/HCPCS: 36415; 86003

== ENCOUNTER 2022-11-18 07:30 | Inpatient (IN) | payer MEDICARE, OTHER ==
[2022-12-31 13:11] VITALS: BMI 33.5
[2023-01-06] MEDS ORDERED: MELOXICAM 7.5 MG TAB PO PRN (05:00)
[2023-01-06] MEDS ORDERED: ONDANSETRON 4 MG/2 ML VIAL IVP PRN ×2 (05:00→15:34)
[2023-01-06] MEDS ORDERED: TRANEXAMIC 1,000 MG/100ML-NACL 1,000 MG in SALINE 1 100ML.BAG IVPB PRN (05:00)
[2023-01-06] MEDS ORDERED: ACETAMINOPHEN TAB 500 MG TAB PO PRN (05:00)
[2023-01-06] MEDS ORDERED: MIDAZOLAM 2 MG/2 ML VIAL IV PRN (09:18)
[2023-01-06] MEDS ORDERED: LACTATED RINGERS 1,000 ML IV SCH (09:18)
[2023-01-06] MEDS ORDERED: fentaNYL (PF) 50 MCG/ML 2 ML AMP IVP ONE ×2 (11:51→16:14)
[2023-01-06] MEDS ORDERED: MIDAZOLAM 2 MG/2 ML VIAL IVP ONE ×2 (11:51→16:10)
--- NOTE | 2023-01-06 12:39 | P.ANPRN ---
Procedure Note - Anesthesia - Nerve Block Performed Right Adductor Canal Infusion Time Out Performed: Yes Date of Procedure: 01/06/23 Procedure Start Time: 11:50 Procedure Stop Time: 12:02 Location of Patient: PreOp Indication: Acute Post-Operative Pain, Requested by Surgeon Sedation Type: Sedate with meaningful contact maintained Preparation: Sterile Prep Position: Supine Catheter: Indwelling Needle Types: Pajunk Needle Gauge: 21 Ultrasound used to visualize needle placement: Yes Ultrasound used to observe medication spread: Yes Injectate: 0.5% Ropivacaine (see comment for volume) (ropiv 10ml+NS10 ml)
--- NOTE | 2023-01-06 12:52 | P.ANPRN ---
Procedure Note - Anesthesia - Nerve Block Performed Right Avick Single Time Out Performed: Yes Date of Procedure: 01/06/23 Procedure Start Time: 12:05 Procedure Stop Time: 12:10 Location of Patient: PreOp Indication: Acute Post-Operative Pain, Requested by Surgeon Sedation Type: Sedate with meaningful contact maintained Preparation: Sterile Prep Position: Left Lateral Catheter: None Needle Types: Pajunk Needle Gauge: 21 Ultrasound used to visualize needle placement: Yes Ultrasound used to observe medication spread: Yes Injectate: 0.5% Ropivacaine (see comment for volume) (Ropiv 10 ml+NS 10ml) Blood Aspirated: No Pain Paresthesia on Injection Noted: No Resistance on Injection: Normal Image Stored and Saved: Yes Events: Uneventful and Well Tolerated
[2023-01-06] MEDS ORDERED: ROPIVACAINE 1,100 MG, SODIUM CHLORIDE 0.9% 500 ML 330 ML, EMPTY PAIN BALL 1 EACH MISCELLANE PRN ×2 (12:59)
[2023-01-06] MEDS ORDERED: LACTATED RINGERS 1,000 ML IV ONE (14:12)
[2023-01-06] MEDS ORDERED: ceFAZolin 3,000 MG in SODIUM CHLORIDE 0.9% IRRIGATIO 3,000 ML IRRIGATION ONE (14:51)
--- NOTE | 2023-01-06 15:22 | P.OP ---
Date of Procedure: 01/06/23 Procedure(s) Performed: PREOPERATIVE DIAGNOSIS: 1. Right knee loosened tibial and/or femoral components status post total knee arthroplasty POSTOPERATIVE DIAGNOSIS: 1. Right knee loosened tibial and/or femoral components status post total knee arthroplasty 2. Stable patellar component OPERATION: Right knee revision total replacement arthroplasty (revision of femoral and tibial components, with preservation of patellar component). ANESTHESIA: General and Regional ESTIMATED BLOOD LOSS: 150 ml. PROFESSOR OF THEATRE: Hemalatha Jones (assistance with: patient positioning, retraction, exposure, hemostasis, leg positioning, implantation, irrigation, closure, dressing) COMPLICATIONS: None apparent. COMPONENTS IMPLANTED: Persona Revision system from [employer] INDICATIONS: Nikkie is a 67 year old male with a history of Right knee replacement in 2012. Over the past several years or so he has been having progressive problems with the right knee, and x-rays have shown loosening of the tibial and/or femoral components. The operation of knee replacement revision has been discussed at length in the office, as well as potential risks and complications. These are inclusive of, but not limited to: bleeding, infection, scarring, discomfort, blood vessel and nerve damage, need for further surgery, failure to relieve symptoms, persistence, recurrence, or worsening of problems, loosening, dislocation, wear, blood clot, pulmonary embolism, , gait dysfunction, stiffness, and other risks as discussed in the office. The patient elects to proceed and the consent form has been signed. PROCEDURE: The patient was taken to the operating room and positioned on the operating room table in the supine position. Anesthesia was initiated. Care was taken to make sure that all pressure points were adequately padded. The operative lower extremity was prepped and draped in the usual aseptic fashion using Chloraprep. Ioban drape was used for the case and the patient received intravenous antibiotics within one hour of the incision. A pneumotourniquet and leg pal were used for the case. The limb was exsanguinated with an Esmarch bandage and the tourniquet was inflated to 300 mmHg. Time-out was called confirming the patient's identity, side, procedure and administration of antibiotics and tranexamic acid. The incision was then created midline directly over the previous incision, carried down through skin and into the subcutaneous tissues and down to fascia. Full thickness subcutaneous medial flap was developed. Medial parapatellar arthrotomy with quadricep snip was performed and the interior of the knee was inspected. There was significant synovial hypertrophy especially noted around the femur. Femoral component was grossly stable without softening and destruction of the distal femoral bone and no signs of definite infection. Synovectomy was performed. Cultures 2 were taken both within the fluid that was removed as well as deep on the tissue between the femoral component and the femoral bone. Permanent sections were also taken. The knee was flexed 90 degrees and the patella was everted, with a controlled release of a small portion of the proximal medial patellar tendon attachment. Medial release was performed to the posterior aspect of the medial tibial plateau, accomplishing excellent exposure of the interior of the knee. Existing liner was removed. Liner was noted to have erosive changes at the medial dish. Deep dished component was noted. Femoral component was then addressed with exposure of the bone cement/component interface and using a micro-oscillating saw and manual thin osteotomes, the femoral component was disengaged easily and with minimal bone loss. The tibial component was then removed, see below. The distal femoral cut surface appeared to be adequate for reimplantation of a similar size Persona revision component. Progressive sized cylindrical reamers were used under power until cortical engagement was noted, to a depth of 135 mm. A cutting guide was placed on the reamer and pinned into position and the note was made that no significant augments were needed. Distal femoral cut was cleaned up using an oscillating saw. Extension and flexion gaps were noted to be similar and satisfactory. An offset femoral component of size [9+] was inserted with the 135 mm offset stem loose so that it self centered on the distal femur. Note was made where the tolerance was tight and cuts around the anterior and posterior chamfers were cleaned up as necessary using the oscillating saw. The offset stem was then locked into position using the trencher driver. It was then carefully removed and note was made of the offset number on the trial to reproduce this amount of offset stem rotation on the final component. The tibial component was grossly unstable and surrounded by scar tissue. Scar tissue was removed down to bone cement interface and the component was then noted to be too finger loose and therefore removed manually easily. The component was then removed and loose connective tissue on the surface of the bone was removed. Note was made of synovial membrane around the tibial stem with a smooth, non-integrating appearance of the metaphyseal portion. This non- integration was consistent with aseptic loosening of the component. The central region of the tibial component was chosen for placement of the intramedullary reamer. Reamer was then used to drill down into the shaft of the tibia. Progre ssive sizes a reamer were then used; size [12] was selected and replaced with an intramedullary stem of the same size. Cutting guide was applied and approximately 1-2 mm of tibial bone was removed during this step. Subsequently, a size [G] tibial tray was called for and placed on the surface of the tibia, centered with a central, non-offset bushing. The femoral trial was reinserted and the tibial tray was allowed to self center and marked for position on the tibia. The non-offset stem fit very well and had excellent coverage of the proximal tibia and was therefore called for. Next, the tibial trial with the 135 mm stem extension was placed and had excellent positioning. Note was made of no need for augments of any sort for the tibial cut. Subsequently, the trial components were removed and the surfaces were reinspected and cleansed with pulse lavage. Drying was performed using a lap sponge and the cement was mixed on the back table. Cement was applied first to the tibial component as well as the exposed tibial surface. The component was then inserted and impacted into position with several mallet taps. Excess cement was removed. The femoral component was then inserted as follows. The femoral component had been prepared by inserting the 135 mm extension in the previously noted rotation on the back of the femoral component. This was locked into position with the wrench. The cement was applied to the prepared femoral implant and to the exposed surfaces of the bone. The implant was then impacted into position using gentle mallet taps, and the cement was allowed to harden in extension with the 12 mm trial spacer in. Once the cement had fully hardened, the 12 mm final spacer was called for, and placed onto the tibial component and locked into position with the torque screw. Patellar tracking was noted to be excellent without need for a formal lateral release. Range of motion showed 0-120 motion with excellent stability. Medial lateral stability was normal and there was no evidence of instability in flexion. Thorough irrigation was performed and tourniquet was deflated. Hemostasis was obtained using electrocautery. Irrisept chlorhexidine, applied as a wound soak for 2 minutes. The knee capsule and fascia, including the quadriceps snip, was closed in 50 of flexion with #2 Ethibond, followed by Statifix type suture. Subcutaneous closure was performed using 2-0 Vicryl suture followed by Stratifix type suture in the subcutaneous tissues and Dermabond closure for the skin. A lightly compressive dressing was applied using Webril and an Mike wrap. The patient was then transferred to [facility] and taken to the recovery room in stable condition. Sponge and needle counts were correct.
[2023-01-06] MEDS ORDERED: NA PHOS,M-B/NA PHOS,DI-BA 133 ML ENEMA RECTAL PRN (15:34)
[2023-01-06] MEDS ORDERED: NALOXONE 0.4 MG/ML 1 ML VIAL IV PRN (15:34)
[2023-01-06] MEDS ORDERED: HYDROcodone/APAP 5-325MG 1 EACH TAB PO PRN ×2 (15:34)
[2023-01-06] MEDS ORDERED: HYDROmorphone 0.5 MG/0.5 ML SYRINGE IVP PRN ×2 (15:34)
[2023-01-06] MEDS ORDERED: bisacodyL 10 MG SUPP RECTAL PRN (15:34)
[2023-01-06] MEDS ORDERED: hydrOXYzine pamoate 25 MG CAP PO PRN (15:34)
[2023-01-06] MEDS ORDERED: MAGNESIUM HYDROXIDE 2,400 MG/30 ML CUP PO PRN (15:34)
[2023-01-06] MEDS: HYDROmorphone 0.5 MG/0.5 ML SYRINGE IVP PRN ×5 (15:50→22:40)
--- NOTE | 2023-01-06 15:59 | XR ---
EXAMINATION TYPE: XR knee limited RT DATE OF EXAM: 01/06/2023 3:54 PM CLINICAL INDICATION:Male, 67 years old with history of Evaluation for Postop abnormality and alignmen t; [facility] COMPARISON: 11/29/2021 contralateral side TECHNIQUE: XR knee limited RT; examined in Frontal, lateral and oblique projections. FINDINGS: Status post total knee arthroplasty changes with hardware in appropriate alignment and in tact. No evidence of fracture. Subcutaneous lucencies and lucencies within the joint consistent with surgical changes. IMPRESSION: Status post total knee arthroplasty changes with hardware intact and appropriate alignment. No fractu res identified.
[2023-01-06] MEDS ORDERED: ACETAMINOPHEN IV (For NPO) 1,000 MG/100 ML VIAL IVPB ONE (17:10)
[2023-01-06] MEDS: LACTATED RINGERS 1,000 ML IV SCH (18:56)
[2023-01-06] MEDS: SENNOSIDES-DOCUSATE SODIUM 1 EACH TAB PO SCH (20:14)
[2023-01-06] MEDS ORDERED: NON FORMULARY DRUG (Tadalafil [Cialis] 5 MG Tablet) PO PRN (20:36)
[2023-01-06] MEDS ORDERED: carisoprodoL 350 MG TAB PO PRN (20:36)
[2023-01-06] MEDS ORDERED: TEMAZEPAM 15 MG CAP PO PRN (22:00)
[2023-01-06] MEDS: ZOLPIDEM 5 MG TAB PO SCH (22:37)
[2023-01-06] MEDS: TAMSULOSIN 0.4 MG CAP.ER.24H PO SCH (22:37)
[2023-01-06] MEDS: FINASTERIDE 5 MG TAB PO SCH (22:37)
[2023-01-07] MEDS: LACTATED RINGERS 1,000 ML IV SCH ×3 (00:25→18:07)
[2023-01-07] MEDS: HYDROmorphone 0.5 MG/0.5 ML SYRINGE IVP PRN ×6 (02:05→21:27)
[2023-01-07] MEDS: PANTOPRAZOLE 40 MG TABLET PO SCH (05:49)
--- NOTE | 2023-01-07 08:09 | P.PN ---
Progress Note - Text Progress Note Date: 01/07/23 Patient seen at 0656 am sitting in bed. He is POD #1 from revision of a right TKA with adductor canal PNC insitu and infusing. He states a VAS 8/10 and is due for po narcotics as his last dose was reportedly at midnight. Has been up to ambulate once last night but states he was unable to bear weight on his right leg due to pain. Feels better today and feels he is able to go home. Possible discharge to home today. Will follow up as indicated.
[2023-01-07] MEDS: oxyCODONE-APAP 10-325MG 1 EACH TAB PO PRN (08:22)
[2023-01-07] MEDS: FERROUS SULFATE 325 MG TAB PO SCH (08:22)
[2023-01-07] MEDS: LORATADINE 10 MG TAB PO SCH (08:22)
[2023-01-07] MEDS: FAMOTIDINE 20 MG TAB PO SCH (08:23)
[2023-01-07] MEDS: MULTIVITAMINS, THERA 1 EACH TAB PO SCH (08:23)
[2023-01-07] MEDS: BISOPROLOL-HCTZ 5-6.25 MG 1 EACH TAB PO SCH (08:23)
[2023-01-07] MEDS: predniSONE 20 MG TAB PO SCH (08:23)
[2023-01-07] MEDS: CYANOCOBALAMIN 500 MCG TAB PO SCH (08:23)
--- NOTE | 2023-01-07 08:48 | P.CONS ---
History of Present Illness - Reason for Consult Consult date: 01/07/23 Medical management - History of Present Illness This is a 67-year-old male admitted for a right knee revision total replacement arthroplasty Dr. Lombardo. He is postop day #1. He is seen sitting on side of bed this morning. He reports he has had some difficulty urinating. He has not been able to urinate this morning. Pain is well-controlled. He is tolerating diet. Past medical history as noted below. Review of Systems Constitutional: Denies chills, Denies fever Cardiovascular: Denies chest pain, Denies dyspnea on exertion Respiratory: Denies cough, Denies dyspnea Gastrointestinal: Denies nausea, Denies vomiting Musculoskeletal: Denies arm numbness/tingling, Denies leg numbness/tingling Neurological: Denies headaches, Denies weakness Past Medical History Past Medical History: GERD/Reflux, Hearing Disorder / Deafness, Hypertension, Osteoarthritis (OA), Prostate Disorder Additional Past Medical History / Comment(s): Hx Bowel obstruction, colitis, chronic back pain, DJD, BPH, deaf in R ear. History of Any Multi-Drug Resistant Organisms: MRSA Year Discovered:: 2015 MDRO Source:: nose Past Surgical History: Back Surgery, Bowel Resection, Hernia Repair, Joint Replacement, Orthopedic Surgery Additional Past Surgical History / Comment(s): 11/16/21 lysis of adhesions, robotic small bowel decompression/extensive lysis of adhesions, colonoscopies, bilateral total hip arthroplasties/R hip twice, R total knee arthroplasty, ORIF clavicle/pin since removed, R inguinal hernia repair, pain clinic procedures. Past Anesthesia/Blood Transfusion Reactions: No Reported Reaction Additional Past Anesthesia/Blood Transfusion Reaction / Comm: No hx blood transfusion. Smoking Status: Never smoker - Past Family History Father Family Medical History: Congestive Heart Failure (CHF) Brother(s) Family Medical History: Deep Vein Thrombosis (DVT) Mother Family Medical History: No Reported History Medications and Allergies Home Medications Medication Instructions Recorded Confirmed Type oxyCODONE-APAP 10-325MG [Percocet 1 tab PO QID PRN 05/31/14 01/06/23 History 10-325 mg] carisoprodoL [Soma] 350 mg PO QID PRN 07/04/16 01/06/23 History Cetirizine HCl [Zyrtec] 10 mg PO DAILY 01/15/18 01/06/23 History Dutasteride [Avodart] 0.5 mg PO HS 03/16/20 01/06/23 History Pantoprazole Sodium [Protonix] 40 mg PO DAILY 03/16/20 01/06/23 History Tamsulosin [Flomax] 0.8 mg PO HS 03/29/20 01/06/23 History tadalafiL [Cialis] 5 mg PO DAILY PRN 03/29/20 01/06/23 History Zolpidem [Ambien] 10 mg PO HS 11/19/20 01/06/23 History Famotidine 20 mg PO DAILY 7 Days #7 tab 10/29/22 01/06/23 Rx Ibuprofen [Motrin] 800 mg PO TID PRN 10/29/22 01/06/23 History Levocetirizine Dihydrochloride 5 mg PO DAILY 10/29/22 01/06/23 History [Xyzal] predniSONE [Deltasone] 40 mg PO DAILY 5 Days #10 tab 10/29/22 01/06/23 Rx Bisoprolol-Hctz 5-6.25 mg [Ziac 1 tab PO DAILY 12/31/22 01/06/23 History 5-6.25 MG] Ferrous Sulfate [Feosol] 325 mg PO DAILY 12/31/22 01/06/23 History Multivitamins, Thera [Multivitamin 1 tab PO DAILY 12/31/22 01/06/23 History (formulary)] Vitamin B-12 (Unknown Dose) 1 dose PO DAILY 12/31/22 History Aspirin [Adult Low Dose Aspirin EC] 81 mg PO BID #1 tab 01/06/23 Rx hydrOXYzine pamoate [Vistaril] 25 mg PO Q4-6H #30 capsule 01/06/23 Rx Allergies Allergy/AdvReac Type Severity Reaction Status Date / Time No Known Allergies Allergy Verified 01/06/23 11:38 Physical Exam Vitals: Vital Signs Temp Pulse Resp BP Pulse Ox 01/07/23 07:50 99.0 F 69 15 114/53 97 01/07/23 01:53 99.3 F 90 121/69 100 01/06/23 19:20 98.2 F 60 18 148/67 99 01/06/23 17:34 98.6 F 59 L 18 144/84 99 01/06/23 17:00 56 L 14 155/72 100 01/06/23 16:45 47 L 14 143/81 98 01/06/23 16:30 50 L 14 145/79 100 01/06/23 16:15 54 L 14 164/78 100 01/06/23 16:00 53 L 14 137/97 98 01/06/23 15:45 53 L 14 108/61 100 01/06/23 15:32 97.4 F L 57 L 14 119/63 100 01/06/23 12:22 45 L 16 145/65 100 01/06/23 11:14 97.0 F L 45 L 16 142/65 100 Intake and Output 01/06/23 01/07/23 01/07/23 22:59 06:59 14:59 Intake Total 400 Output Total 1100 Balance 400 -1100 Intake: IV 400 Output: Urine 1100 Straight 550 Other: Voiding Method Urinal # Voids 0 Weight 115 kg - Constitutional General appearance: cooperative, no acute distress - EENT Eyes: PERRLA - Neck Neck: no lymphadenopathy, normal ROM, no rigidity - Respiratory Respiratory: bilateral: CTA - Cardiovascular Rhythm: regular Heart sounds: normal: S1, S2 - Gastrointestinal General gastrointestinal: soft, no tenderness - Integumentary Integumentary: normal, normal turgor - Neurologic Neurologic: CNII-XII intact - Psychiatric Psychiatric: A&O x's 3, appropriate affect, intact judgment & insight Assessment and Plan (1) Status post total right knee replacement Current Visit: Yes Status: Acute Code(s): Z96.651 - PRESENCE OF RIGHT ARTIFICIAL KNEE JOINT SNOMED Code(s): 8700665056758 (2) GERD (gastroesophageal reflux disease) Current Visit: Yes Status: Acute Code(s): K21.9 - GASTRO-ESOPHAGEAL REFLUX DISEASE WITHOUT ESOPHAGITIS SNOMED Code(s): 336321927 (3) BPH (benign prostatic hyperplasia) Current Visit: No Status: Acute Code(s): N40.0 - BENIGN PROSTATIC HYPERPLASIA WITHOUT LOWER URINRY TRACT SYMP SNOMED Code(s): 306456256 (4) Opiate dependence Current Visit: No Status: Acute Code(s): F11.20 - OPIOID DEPENDENCE, UNCOMPLICATED SNOMED Code(s): 28128686 (5) DDD (degenerative disc disease), lumbar Current Visit: No Status: Acute Code(s): M51.36 - OTHER INTERVERTEBRAL DISC DEGENERATION, LUMBAR REGION SNOMED Code(s): 52439067 Plan: Resume home medications. Continue to follow appropriate postop care per surgeon. Patient seen and evaluated by nurse practitioner, physician in agreement with plan
[2023-01-07] MEDS ORDERED: LEVOCETIRIZINE DIHYDROCHLORIDE 5 MG PO SCH (09:00)
[2023-01-07 09:02] LABS: Basophils # (A) 0 X 10*3/uL (0.00-0.10); Basophils % (A) 0 %; Eosinophils # (A) 0 X 10*3/uL (0.04-0.35); Eosinophils % (A) 0 %; HCT 31.7 % (39.6-50.0); HGB 10.6 g/dL (13.0-17.0); Lymphocytes % (A) 21.3 %; MCH 28.4 pg (27.0-32.0); MCHC 33.4 g/dL (32.0-37.0); Mean Platelet Volume 12.5 FL (9.5-12.2); Monocytes # (A) 1.07 X 10*3/uL (0.20-1.00); Monocytes % (A) 10.4 %; NRBC Per 100 WBC 0 X 10*3/uL (0.00-0.01); Neutrophils # (A) 6.99 X 10*3/uL (1.80-7.70); Neutrophils % (A) 67.6 %; Platelet Count 143 X 10*3/uL (140-440); RBC 3.73 X 10*6/uL (4.40-5.60); WBC 10.33 X 10*3/uL (4.50-10.00)
[2023-01-07] MEDS: TAMSULOSIN 0.4 MG CAP.ER.24H PO SCH (21:27)
[2023-01-07] MEDS: FINASTERIDE 5 MG TAB PO SCH (21:27)
[2023-01-07] MEDS: ASPIRIN 81 MG PO SCH (21:27)
[2023-01-07] MEDS: ZOLPIDEM 5 MG TAB PO SCH (21:27)
[2023-01-07] MEDS: SENNOSIDES-DOCUSATE SODIUM 1 EACH TAB PO SCH (21:27)
[2023-01-08] MEDS: HYDROmorphone 0.5 MG/0.5 ML SYRINGE IVP PRN ×2 (01:34→06:19)
[2023-01-08] MEDS: PANTOPRAZOLE 40 MG TABLET PO SCH (06:19)
[2023-01-08] MEDS: LACTATED RINGERS 1,000 ML IV SCH (06:19)
--- NOTE | 2023-01-08 07:47 | P.DS ---
Providers Date of admission: 01/06/23 10:05 Expected date of discharge: 01/08/23 Attending physician: Damian Lombardo Consults: 01/06/23 15:34 Consult Physician Routine Consulting Provider: Shaun Wang Consult Reason/Comments: Medical management Do you want consulting provider notified?: Yes Primary care physician: Shaun Wang - Discharge Diagnosis(es) (1) Failed total knee arthroplasty Current Visit: Yes Status: Acute (2) Status post revision of total replacement of right knee Current Visit: Yes Status: Acute Hospital Course: This is a 67-year-old male who was last seen with complaint of continued right knee pain. The patient has a known history of degenerative arthritis of the right knee and presents to discuss surgical options. After discussion and consideration the patient elects to proceed with total right knee arthroplasty. The patient is seen preoperatively by Dr. Wang and cleared for surgery. The patient is admitted to [facility] for total right knee arthroplasty. The procedures performed without complication or sequelae. Patient is doing well postoperatively. He is having some urinary retention. A Baxter catheter was placed yesterday. He had a total of 800 mL residual in his bladder. We will pull the Baxter today and see if he is able to void on his own by later today. We will plan discharged to home later today. Vital signs are stable at discharge. Labs are stable at discharge. the patient is ambulating well with walker with minimal assistance. The patient is discharged to home on postop day #2 pending medical clearance and patient able to void on his own. Please see orders and refer to the [facility] rec for accurate list of medications. The patient takes oxycodone 10/325 routinely at home. His pain medication at discharge will be managed by primary care. Patient Condition at Discharge: Stable Plan - Discharge Summary Discharge Rx Participant: Yes New Discharge Prescriptions: New hydrOXYzine pamoate [Vistaril] 25 mg PO Q4-6H #30 capsule Aspirin [Adult Low Dose Aspirin EC] 81 mg PO BID #1 tab No Action oxyCODONE-APAP 10-325MG [Percocet 10-325 mg] 1 tab PO QID PRN PRN Reason: Pain carisoprodoL [Soma] 350 mg PO QID PRN PRN Reason: Pain Cetirizine HCl [Zyrtec] 10 mg PO DAILY Dutasteride [Avodart] 0.5 mg PO HS Pantoprazole Sodium [Protonix] 40 mg PO DAILY Tamsulosin [Flomax] 0.8 mg PO HS tadalafiL [Cialis] 5 mg PO DAILY PRN PRN Reason: E.D. Zolpidem [Ambien] 10 mg PO HS predniSONE [Deltasone] 40 mg PO DAILY 5 Days #10 tab Famotidine 20 mg PO DAILY 7 Days #7 tab Ibuprofen [Motrin] 800 mg PO TID PRN PRN Reason: Pain Levocetirizine Dihydrochloride [Xyzal] 5 mg PO DAILY Bisoprolol-Hctz 5-6.25 mg [Ziac 5-6.25 MG] 1 tab PO DAILY Ferrous Sulfate [Feosol] 325 mg PO DAILY Multivitamins, Thera [Multivitamin (formulary)] 1 tab PO DAILY Vitamin B-12 (Unknown Dose) 1 dose PO DAILY Discharge Medication List oxyCODONE-APAP 10-325MG [Percocet 10-325 mg] 1 tab PO QID PRN 05/31/14 [History] carisoprodoL [Soma] 350 mg PO QID PRN 07/04/16 [History] Cetirizine HCl [Zyrtec] 10 mg PO DAILY 01/15/18 [History] Dutasteride [Avodart] 0.5 mg PO HS 03/16/20 [History] Pantoprazole Sodium [Protonix] 40 mg PO DAILY 03/16/20 [History] Tamsulosin [Flomax] 0.8 mg PO HS 03/29/20 [History] tadalafiL [Cialis] 5 mg PO DAILY PRN 03/29/20 [History] Zolpidem [Ambien] 10 mg PO HS 11/19/20 [History] Famotidine 20 mg PO DAILY 7 Days #7 tab 10/29/22 [Rx] Ibuprofen [Motrin] 800 mg PO TID PRN 10/29/22 [History] Levocetirizine Dihydrochloride [Xyzal] 5 mg PO DAILY 10/29/22 [History] predniSONE [Deltasone] 40 mg PO DAILY 5 Days #10 tab 10/29/22 [Rx] Bisoprolol-Hctz 5-6.25 mg [Ziac 5-6.25 MG] 1 tab PO DAILY 12/31/22 [History] Ferrous Sulfate [Feosol] 325 mg PO DAILY 12/31/22 [History] Multivitamins, Thera [Multivitamin (formulary)] 1 tab PO DAILY 12/31/22 [History] Vitamin B-12 (Unknown Dose) 1 dose PO DAILY 12/31/22 [History] Aspirin [Adult Low Dose Aspirin EC] 81 mg PO BID #1 tab 01/06/23 [Rx] hydrOXYzine pamoate [Vistaril] 25 mg PO Q4-6H #30 capsule 01/06/23 [Rx] Follow up Appointment(s)/Referral(s): Hemalatha Jones, PAC [PHYSICIAN CLINICAL TRIAL HEAD] - 2 Weeks [facility] Visiting Nurse, [NON-STAFF] - As Needed Activity/Diet/Wound Care/Special Instructions: May bear wt as tolerated w walker. Keep stocking and julieth wrap on until , then may remove and may shower. Wear stockings during the day for 2 weeks. Remove Optifoam dressing [address] Wang to manage discharge pain meds. Discharge Disposition: HOME WITH HOME HEALTH SERVICES
--- NOTE | 2023-01-08 08:53 | CDI ---
Documentation Clarification Form Date: 01/08/2023 08:50:49 AM From: Camila Frederick RN, CCDS Admit Date: 01/06/2023 10:05:00 AM Patient Name: Nikkie Rosario Visit Number: [id number] Discharge Date: ATTENTION: The Clinical Documentation Specialists (CDI) and [facility] Coding Staff appreciate your assistance in clarifying documentation. Please respond to the clarification below the line at the bottom and electronically sign. The CDI & [facility] Coding staff will review the response and follow-up if needed. Please note: Queries are made part of the Legal Health Record. If you have any questions, please contact the author of this message via ITS. Dr. Shaun Wang Urinary retention is documented in the discharge summary on 01/08/23 and patient had total right knee arthroplasty on 01/06/23. Additional clarification is requested regarding the relationship, if any, that exists between the diagnosis and the procedure. Patients Admitting Diagnosis: Right knee loosened tibial and/or femoral components status post total knee arthroplasty Post-Operative Diagnosis: Right knee loosened tibial and/or femoral components status post total knee arthroplasty. Stable patellar component Procedure performed: Right knee revision total replacement arthroplasty (revision of femoral and tibial components, with preservation of patellar component). History/Risk Factors: GERD/Reflux, Hearing Disorder / Deafness, Hypertension, Osteoarthritis (OA), Prostate Disorder Clinical Indicators: 67-year-old male admitted for a right knee revision total replacement arthroplasty. He has known history of BPH (benign prostatic hyperplasia). He is having some urinary retention. On 01/06 straight catheterization for 550 ml urine. 01/06 Baxter Catheter inserted. 01/07 Labs: WBC 10.33 HGB 10.6 01/07 VS: 124/75 52 14 97.7 98% RA Treatment: 01/06 Baxter Catheter inserted Monitor I/0 What relationship, if any, exists between the diagnosis of urinary retention and the procedure: [ ] Urinary retention is a complication of surgical procedure [ ] Urinary retention is an expected outcome of the surgical procedure [ x ] Urinary retention is related to patients co-morbid condition(s) of BPH (benign prostatic hyperplasia) & not a complication of the procedure. [ ] Other please specify ____ [ ] Unable to determine (Template Last Revised: April 2020) MTDD
[2023-01-08] MEDS: LORATADINE 10 MG TAB PO SCH (09:02)
[2023-01-08] MEDS: oxyCODONE-APAP 10-325MG 1 EACH TAB PO PRN ×2 (09:02→15:20)
[2023-01-08] MEDS: CYANOCOBALAMIN 500 MCG TAB PO SCH (09:02)
[2023-01-08] MEDS: MULTIVITAMINS, THERA 1 EACH TAB PO SCH (09:03)
[2023-01-08] MEDS: BISOPROLOL-HCTZ 5-6.25 MG 1 EACH TAB PO SCH (09:03)
[2023-01-08] MEDS: FAMOTIDINE 20 MG TAB PO SCH (09:03)
[2023-01-08] MEDS: ASPIRIN 81 MG PO SCH (09:03)
[2023-01-08] MEDS: predniSONE 20 MG TAB PO SCH (09:03)
[2023-01-08] MEDS: FERROUS SULFATE 325 MG TAB PO SCH (09:03)
[2023-01-08 09:24] VITALS: BP 119/58; PULSE 62; RESP 14; TEMP 99
== END 2023-01-08 16:18 | disposition home health service (06) | DRG 467 ==
LOC: 2ORMAIN 01-06 10:05 → EDSTATUS 01-06 12:30 → 4SSUR 01-06 16:06
PROVIDERS: ADMIT Orthopaedic Surgery; ATTEND Orthopaedic Surgery
PROC: 0SPC0JZ Removal of Synthetic Substitute from Right Knee Joint, Open Approach (ICD-10-PCS; principal; 2023-01-06 12:30)
PROC: 0SRC0J9 Replacement of Right Knee Joint with Synthetic Substitute, Cemented, Open Approach (ICD-10-PCS; principal; 2023-01-06 12:30)
DX: T84.032A Mechanical loosening of internal right knee prosthetic joint, initial encounter (principal); F11.20 Opioid dependence, uncomplicated; R33.8 Other retention of urine; N40.1 Benign prostatic hyperplasia with lower urinary tract symptoms; M51.36 Other intervertebral disc degeneration, lumbar region; K21.9 Gastro-esophageal reflux disease without esophagitis; M17.11 Unilateral primary osteoarthritis, right knee; H91.91 Unspecified hearing loss, right ear; I10 Essential (primary) hypertension; Z96.651 Presence of right artificial knee joint; G89.29 Other chronic pain; M54.9 Dorsalgia, unspecified; Z96.643 Presence of artificial hip joint, bilateral; Z86.14 Personal history of Methicillin resistant Staphylococcus aureus infection; Z79.899 Other long term (current) drug therapy; Z79.82 Long term (current) use of aspirin
CPT/HCPCS: 64448; 64999; 85025; 87070; 87075; 87102; 87116; 87205; 87206

== ENCOUNTER → 2022-12-04 | Outpatient (CLI) | payer MEDICARE, OTHER ==
[2022-12-04 12:50] LABS: Partial Thromboplastin Time 24.4 sec (22.0-30.0)
[2022-12-04 16:34] LABS: INR 1.1 (<1.2); Prothrombin Time 11.7 sec (10.0-12.5)
[2022-12-04 17:35] LABS: HGB 12.9 d/dL (13.0-17.0); MCH 27.5 pg (27.0-32.0); MCHC 31.5 d/dL (32.0-37.0); MCV 87.4 FL (80.0-97.0); Mean Platelet Volume 11.8 FL (9.5-12.2); NRBC Per 100 WBC 0 X 10*3/uL (0.00-0.01); Platelet Count 181 X 10*3/uL (140-440); RBC 4.69 X 10*6/uL (4.40-5.60); RDW 15.9 % (11.5-14.5); WBC 5.92 X 10*3/uL (4.50-10.00)
[2022-12-04 18:01] LABS: Appearance,Urine Clear (Clear); Bilirubin,Urine Negative (Negative); Blood,Urine Negative (Negative); Color,Urine Yellow (Yellow); Ketones,Urine Negative (Negative); Nitrite,Urine Negative (Negative); Urobilinogen,Urine 0.2 E.U./DL
[2022-12-04 20:43] LABS: ALT 22 U/L (10-49); AST 23 U/L (14-35); Albumin/Globulin Ratio 1.67 Ratio (1.60-3.17); Alkaline Phosphatase 110 U/L (41-126); BUN/Creat Ratio 13.93 Ratio (12.00-20.00); Blood Urea Nitrogen 20.9 mg/dL (9.0-27.0); Calcium 9.1 mg/dL (8.7-10.3); Carbon Dioxide 24.2 mmol/L (21.6-31.8); Chloride 110 mmol/L (96-109); Globulin 2.4 d/dL (1.6-3.3); Glucose 82 mg/dL (70-110); Potassium 4.5 mmol/L (3.5-5.5); Sodium 143 mmol/L (135-145); Total Bilirubin 0.3 mg/dL (0.3-1.2); Total Protein 6.4 d/dL (6.2-8.2)
== END | disposition home or self-care (01) ==
LOC: LABPAT 12:07
PROVIDERS: ATTEND Orthopaedic Surgery
DX: Z01.812 Encounter for preprocedural laboratory examination (principal); M17.11 Unilateral primary osteoarthritis, right knee; T84.030A Mechanical loosening of internal right hip prosthetic joint, initial encounter; Y82.9 Unspecified medical devices associated with adverse incidents
CPT/HCPCS: 36415; 80053; 81003; 85027; 85610; 85730; 87070

== ENCOUNTER → 2023-01-01 | Outpatient (CLI) | payer MEDICARE, OTHER ==
[2023-01-01 09:57] LABS: Partial Thromboplastin Time 26.8 sec (22.0-30.0); Prothrombin Time 11.1 sec (10.0-12.5)
[2023-01-01 16:16] LABS: HCT 39.5 % (39.6-50.0); HGB 12.6 g/dL (13.0-17.0); MCH 27.6 pg (27.0-32.0); MCHC 31.9 g/dL (32.0-37.0); MCV 86.6 FL (80.0-97.0); Mean Platelet Volume 12.3 FL (9.5-12.2); NRBC Per 100 WBC 0 X 10*3/uL (0.00-0.01); Platelet Count 176 X 10*3/uL (140-440); RBC 4.56 X 10*6/uL (4.40-5.60); RDW 15.4 % (11.5-14.5); WBC 5.22 X 10*3/uL (4.50-10.00)
[2023-01-01 16:23] LABS: ALT 28 U/L (10-49); AST 30 U/L (14-35); Albumin 3.8 g/dL (3.8-4.9); Albumin/Globulin Ratio 1.58 Ratio (1.60-3.17); Alkaline Phosphatase 112 U/L (41-126); BUN/Creat Ratio 12.92 Ratio (12.00-20.00); Blood Urea Nitrogen 16.8 mg/dL (9.0-27.0); Calcium 8.9 mg/dL (8.7-10.3); Carbon Dioxide 21.7 mmol/L (21.6-31.8); Chloride 109 mmol/L (96-109); Globulin 2.4 g/dL (1.6-3.3); Glucose 153 mg/dL (70-110); Potassium 4.2 mmol/L (3.5-5.5); Sodium 142 mmol/L (135-145); Total Bilirubin <0.2 mg/dL (0.3-1.2); Total Protein 6.2 g/dL (6.2-8.2)
[2023-01-01 17:13] LABS: Appearance,Urine Clear (Clear); Bilirubin,Urine Negative (Negative); Blood,Urine Negative (Negative); Color,Urine Yellow (Yellow); Ketones,Urine Negative (Negative); Nitrite,Urine Negative (Negative); Specific Gravity,Urine 1.018 (1.001-1.030); Urobilinogen,Urine 0.2 E.U./DL
== END | disposition home or self-care (01) ==
LOC: LABWHC1 08:41
PROVIDERS: ATTEND Orthopaedic Surgery
DX: Z01.812 Encounter for preprocedural laboratory examination (principal); M17.11 Unilateral primary osteoarthritis, right knee
CPT/HCPCS: 36415; 80053; 81003; 85027; 85610; 85730

== ENCOUNTER 2023-06-04 03:28 | Observation (INO) | payer MEDICARE, OTHER ==
[2023-06-04] MEDS: FAMOTIDINE 20 MG/2 ML VIAL IV STA (04:09)
[2023-06-04] MEDS: diphenhydrAMINE 50 MG/ML 1 ML VIAL IVP STA ×2 (04:09→05:11)
[2023-06-04] MEDS: DEXAMETHASONE SOD PHOSPHATE 10 MG/ML 1 ML VIAL IVP STA (04:09)
[2023-06-04] MEDS: SODIUM CHLORIDE 0.9% 500 ML 500 ML IV STA (04:09)
--- NOTE | 2023-06-04 04:21 | ED ---
Allergic Reaction HPI - General Chief complaint: Allergic Reaction Stated complaint: Allergic Reaction, Tongue Swelling, Diff Breathing Time Seen by Provider: 06/04/23 03:46 Source: patient, RN notes reviewed, old records reviewed Mode of arrival: ambulatory Limitations: no limitations - History of Present Illness Initial Comments: This is a 67-year-old male who awoke tonight with significant tongue swelling significant tongue and facial swelling with difficulty swallowing difficulty moving his tongue. Patient discharged 8 sticking out of patient's mouth with significant amount of edema. Patient has no history of swollen tongue or swollen face or swollen lips and does not take any BHAVESH inhibitors MD Complaint: allergic reaction, facial swelling, other (Swelling) Symptoms: lip swelling (Tongue swelling) Severity: severe Treatment Prior to Arrival: none Previous Allergy History: none - Related Data Home Medications Medication Instructions Recorded Confirmed oxyCODONE-APAP 10-325MG [Percocet 1 tab PO QID PRN 05/31/14 01/06/23 10-325 mg] carisoprodoL [Soma] 350 mg PO QID PRN 07/04/16 01/06/23 Cetirizine HCl [Zyrtec] 10 mg PO DAILY 01/15/18 01/06/23 Dutasteride [Avodart] 0.5 mg PO HS 03/16/20 01/06/23 Pantoprazole Sodium [Protonix] 40 mg PO DAILY 03/16/20 01/06/23 Tamsulosin [Flomax] 0.8 mg PO HS 03/29/20 01/06/23 tadalafiL [Cialis] 5 mg PO DAILY PRN 03/29/20 01/06/23 Zolpidem [Ambien] 10 mg PO HS 11/19/20 01/06/23 Ibuprofen [Motrin] 800 mg PO TID PRN 10/29/22 01/06/23 Levocetirizine Dihydrochloride 5 mg PO DAILY 10/29/22 01/06/23 [Xyzal] Bisoprolol-Hctz 5-6.25 mg [Ziac 1 tab PO DAILY 12/31/22 01/06/23 5-6.25 MG] Ferrous Sulfate [Feosol] 325 mg PO DAILY 12/31/22 01/06/23 Multivitamins, Thera [Multivitamin 1 tab PO DAILY 12/31/22 01/06/23 (formulary)] Vitamin B-12 (Unknown Dose) 1 dose PO DAILY 12/31/22 Previous Rx's Medication Instructions Recorded Famotidine 20 mg PO DAILY 7 Days #7 tab 10/29/22 predniSONE [Deltasone] 40 mg PO DAILY 5 Days #10 tab 10/29/22 Aspirin [Adult Low Dose Aspirin EC] 81 mg PO BID #1 tab 01/06/23 hydrOXYzine pamoate [Vistaril] 25 mg PO Q4-6H #30 capsule 01/06/23 Allergies Allergy/AdvReac Type Severity Reaction Status Date / Time No Known Allergies Allergy Verified 06/04/23 03:33 Review of Systems ROS Statement: Those systems with pertinent positive or pertinent negative responses have been documented in the HPI. ROS Other: All systems not noted in ROS Statement are negative. Past Medical History Past Medical History: GERD/Reflux, Hearing Disorder / Deafness, Hypertension, Osteoarthritis (OA), Prostate Disorder Additional Past Medical History / Comment(s): Hx Bowel obstruction, colitis, chronic back pain, DJD, BPH, deaf in R ear. History of Any Multi-Drug Resistant Organisms: MRSA Date of last positivie culture/infection: 2014 MDRO Source:: nose Past Surgical History: Back Surgery, Bowel Resection, Hernia Repair, Joint Replacement, Orthopedic Surgery Additional Past Surgical History / Comment(s): 11/16/21 lysis of adhesions, robotic small bowel decompression/extensive lysis of adhesions, colonoscopies, bilateral total hip arthroplasties/R hip twice, R total knee arthroplasty, ORIF clavicle/pin since removed, R inguinal hernia repair, pain clinic procedures. Past Anesthesia/Blood Transfusion Reactions: No Reported Reaction Additional Past Anesthesia/Blood Transfusion Reaction / Comment(s): No hx blood transfusion. Past Psychological History: No Psychological Hx Reported Smoking Status: Never smoker - Past Family History Father Family Medical History: Congestive Heart Failure (CHF) Brother(s) Family Medical History: Deep Vein Thrombosis (DVT) Mother Family Medical History: No Reported History General Exam - General Exam Comments Initial Comments: No stridor No wheezing Significant tongue swelling Limitations: no limitations General appearance: alert, in no apparent distress Head exam: Present: atraumatic, normocephalic, normal inspection Eye exam: Present: normal appearance, PERRL, EOMI. Absent: scleral icterus, conjunctival injection, periorbital swelling ENT exam: Present: normal exam, mucous membranes moist Neck exam: Present: normal inspection. Absent: tenderness, meningismus, lymphadenopathy Respiratory exam: Present: normal lung sounds bilaterally. Absent: respiratory distress, wheezes, rales, rhonchi, stridor Cardiovascular Exam: Present: regular rate, normal rhythm, normal heart sounds. Absent: systolic murmur, diastolic murmur, rubs, gallop, clicks GI/Abdominal exam: Present: soft, normal bowel sounds. Absent: distended, tenderness, guarding, rebound, rigid Extremities exam: Present: normal inspection, full ROM, normal capillary refill. Absent: tenderness, pedal edema, joint swelling, calf tenderness Back exam: Present: normal inspection Neurological exam: Present: alert, oriented X3, CN II-XII intact Psychiatric exam: Present: normal affect, normal mood Skin exam: Present: warm, dry, intact, normal color. Absent: rash Course Vital Signs 06/04/23 06/04/23 06/04/23 03:31 03:44 05:24 Temperature 98.9 F Pulse Rate 64 54 L 67 Respiratory 18 18 18 Rate Blood Pressure 190/98 141/76 136/76 O2 Sat by Pulse 100 100 100 Oximetry 06/04/23 06:09 Temperature Pulse Rate 61 Respiratory 18 Rate Blood Pressure 126/59 O2 Sat by Pulse 99 Oximetry - Reevaluation(s) Reevaluation #1: 06/04/23 06:36 Medical records reviewed Reevaluation #2: 06/04/23 06:36 Mild improvement but does have persistent tongue swelling even after second dose including epinephrine Reevaluation #3: 06/04/23 06:36 Patient informed of results questions answered Reevaluation #4: Was pt. sent in by a medical professional or institution (, PA, CAR REPAIRER APPRENTICE, urgent care, hospital, or fpc...) When possible be specific @ -no Did you speak to anyone other than the patient for history (EMS, parent, family, police, friend...)? What history was obtained from this source @ -no Did you review nursing and triage notes (agree or disagree)? Why? @ -agree Are old charts reviewed (outside hosp., previous admission, EMS record, old EKG, old radiological studies, urgent care reports/EKG's, fpc records)? Report findings @ -yes Differential Diagnosis (chest pain, altered mental status, abdominal pain women, abdominal pain men, vaginal bleeding, weakness, fever, dyspnea, syncope, headache, dizziness, GI bleed, back pain, seizure, CVA, palpatations, mental health, musculoskeletal)? @ -prior EKG interpreted by me (3pts min.). @ -yes X-rays interpreted by me (1pt min.). @ -yes negative for acute disease CT interpreted by me (1pt min.). @ -no U/S interpreted by me (1pt. min.). @ -no What testing was considered but not performed or refused? (CT, X-rays, U/S, labs)? Why? @ -none What meds were considered but not given or refused? Why? @ -none Did you discuss the management of the patient with other professionals (professionals i.e. , PA, CAR REPAIRER APPRENTICE, lab, RT, psych nurse, social welfare clerk, safety deposit supervisor, teacher, disability hearing officer, leather case finisher)? Give summary @ -no Was smoking cessation discussed for >3mins.? @ -no Was critical care preformed (if so, how long)? @ -no Were there social determinants of health that impacted care today? How? (Homelessness, low income, unemployed, alcoholism, drug addiction, transportation, low edu. Level, literacy, decrease access to med. care, senior living, rehab)? @ -none Was there de-escalation of care discussed even if they declined (Discuss DNR or withdrawal of care, Hospice)? DNR status @ -no What co-morbidities impacted this encounter? (DM, HTN, Smoking, COPD, CAD, Cancer, CVA, ARF, Chemo, Hep., AIDS, mental health diagnosis, sleep apnea, morbid obesity)? @ -none Was patient admitted / discharged? Hospital course, mention meds given and route, prescriptions, significant lab abnormalities, going to OR and other pertinent info. @ - Undiagnosed new problem with uncertain prognosis? @ -no Drug Therapy requiring intensive monitoring for toxicity (Heparin, Nitro, Insulin, Cardizem)? @ -no Were any procedures done? @ -no Diagnosis/symptom? @ - Acute, or Chronic, or Acute on Chronic? @ -Acute Uncomplicated (without systemic symptoms) or Complicated (systemic symptoms)? @ -Complicated Side effects of treatment? @ -no Exacerbation, Progression, or Severe Exacerbation? @ -exacerbation Poses a threat to life or bodily function? How? (Chest pain, USA, ID, pneumonia, PE, COPD, DKA, ARF, appy, cholecystitis, CVA, Diverticulitis, Homicidal, Suicidal, threat to staff... and all critical care pts) @ -yes - Consultations Consultation #1: With Dr. Wang who agrees to admit the patient Medical Decision Making - Medical Decision Making 67 male with acute angioedema suspect allergic but will admit for further evaluation and monitoring - Lab Data Result diagrams: 06/04/23 03:51 06/04/23 03:51 Lab Results 06/04/23 06/04/23 Range/Units 03:51 03:51 WBC 5.7 (3.8-10.6) k/uL RBC 4.64 (4.30-5.90) m/uL Hgb 12.7 L (13.0-17.5) gm/dL Hct 40.1 (39.0-53.0) % MCV 86.4 (80.0-100.0) fL MCH 27.3 (25.0-35.0) pg MCHC 31.5 (31.0-37.0) g/dL RDW 15.8 H (11.5-15.5) % Plt Count 140 L (150-450) k/uL MPV 10.0 Neutrophils % 41 % Lymphocytes % 48 % Monocytes % 6 % Eosinophils % 3 % Basophils % 0 % Neutrophils # 2.3 (1.3-7.7) k/uL Lymphocytes # 2.7 (1.0-4.8) k/uL Monocytes # 0.3 (0-1.0) k/uL Eosinophils # 0.1 (0-0.7) k/uL Basophils # 0.0 (0-0.2) k/uL Sodium 138 (137-145) mmol/L Potassium 4.0 (3.5-5.1) mmol/L Chloride 111 H (98-107) mmol/L Carbon Dioxide 23 (22-30) mmol/L Anion Gap 4 mmol/L BUN 21 H (9-20) mg/dL Creatinine 1.29 H (0.66-1.25) mg/dL Est GFR (CKD-EPI)AfAm 67 (>60 ml/min/1.73 sqM) Est GFR (CKD-EPI)NonAf 58 (>60 ml/min/1.73 sqM) Glucose 94 (74-99) mg/dL Calcium 8.4 (8.4-10.2) mg/dL Phosphorus 3.5 (2.5-4.5) mg/dL Magnesium 1.9 (1.6-2.3) mg/dL Total Bilirubin 0.4 (0.2-1.3) mg/dL AST 33 (17-59) U/L ALT 25 (4-49) U/L Alkaline Phosphatase 129 H (38-126) U/L C-Reactive Protein 0.7 (<1.0) mg/dL Total Protein 6.6 (6.3-8.2) g/dL Albumin 3.4 L (3.5-5.0) g/dL Critical Care Time Critical Care Time: Yes Total Critical Care Time: 31 Disposition Clinical Impression: Angioedema, Tongue edema, Allergic reaction Disposition: ADMITTED IP TO THIS [facility] Condition: Serious Is patient prescribed a controlled substance at d/c from ED?: No Referrals: Shaun Wang MD [Primary Care Provider] - 1-2 days Time of Disposition: 06:30
[2023-06-04] MEDS: methylPREDNISolone SOD SUCCI 125 MG/2 ML VIAL IV STA (05:07)
[2023-06-04] MEDS: EPINEPHrine - Anaphylaxis Kit (1 mg/mL) IM STA (05:15)
[2023-06-04] MEDS: SODIUM CHLORIDE 0.9% 1,000 ML IV STA (05:17)
[2023-06-04 05:18] LABS: Basophils % (A) 0 %; Eosinophils # (A) 0.1 k/uL (0-0.7); Eosinophils % (A) 3 %; HCT 40.1 % (39.0-53.0); HGB 12.7 gm/dL (13.0-17.5); Lymphocytes # (A) 2.7 k/uL (1.0-4.8); Lymphocytes % (A) 48 %; MCH 27.3 pg (25.0-35.0); MCHC 31.5 g/dL (31.0-37.0); MCV 86.4 fL (80.0-100.0); Monocytes # (A) 0.3 k/uL (0-1.0); Monocytes % (A) 6 %; Neutrophils # (A) 2.3 k/uL (1.3-7.7); Neutrophils % (A) 41 %; Platelet Count 140 k/uL (150-450); RBC 4.64 m/uL (4.30-5.90); RDW 15.8 % (11.5-15.5); WBC 5.7 k/uL (3.8-10.6)
[2023-06-04 05:31] LABS: ALT 25 U/L (4-49); African American GFR (CKD) 67 (>60 ml/min/1.73 sqM); Albumin 3.4 g/dL (3.5-5.0); Anion Gap 4 mmol/L; Blood Urea Nitrogen 21 mg/dL (9-20); C Reactive Protein 0.7 mg/dL (<1.0); Calcium 8.4 mg/dL (8.4-10.2); Carbon Dioxide 23 mmol/L (22-30); Chloride 111 mmol/L (98-107); Glucose 94 mg/dL (74-99); Non-African American GFR(CKD) 58 (>60 ml/min/1.73 sqM); Sodium 138 mmol/L (137-145); Total Bilirubin 0.4 mg/dL (0.2-1.3); Total Protein 6.6 g/dL (6.3-8.2)
[2023-06-04 05:41] LABS: Magnesium 1.9 mg/dL (1.6-2.3); Phosphorus 3.5 mg/dL (2.5-4.5)
[2023-06-04 05:42] LABS: AST 33 U/L (17-59); Alkaline Phosphatase 129 U/L (38-126)
[2023-06-04] MEDS ORDERED: NALOXONE 0.4 MG/ML 1 ML VIAL IV PRN (06:33)
[2023-06-04] MEDS ORDERED: ONDANSETRON 4 MG/2 ML VIAL IVP PRN (06:33)
[2023-06-04] MEDS ORDERED: diphenhydrAMINE 50 MG/ML 1 ML VIAL IVP PRN (06:33)
[2023-06-04] MEDS ORDERED: HYDROmorphone 1 MG/ML 1 ML SYRINGE IVP PRN (06:33)
[2023-06-04] MEDS: DEXAMETHASONE SOD PHOSPHATE 4 MG/ML 1 ML VIAL IVP SCH (07:58)
[2023-06-04] MEDS: SODIUM CHLORIDE 0.9% 1,000 ML IV SCH (07:59)
[2023-06-04] MEDS: FAMOTIDINE 20 MG/2 ML VIAL IV SCH (08:02)
[2023-06-04] MEDS ORDERED: carisoprodoL 350 MG TAB PO PRN (08:15)
[2023-06-04] MEDS ORDERED: LEVOCETIRIZINE DIHYDROCHLORIDE 5 MG PO SCH (09:00)
[2023-06-04] MEDS ORDERED: PANTOPRAZOLE 40 MG TABLET PO SCH (09:00)
[2023-06-04] MEDS: ASPIRIN 81 MG PO SCH (09:07)
[2023-06-04] MEDS: MULTIVITAMINS, THERA 1 EACH TAB PO SCH (09:07)
[2023-06-04] MEDS: FAMOTIDINE 20 MG TAB PO SCH (09:07)
[2023-06-04] MEDS: LORATADINE 10 MG TAB PO SCH (09:08)
[2023-06-04] MEDS: BISOPROLOL-HCTZ 5-6.25 MG 1 EACH TAB PO SCH (09:08)
[2023-06-04] MEDS: CYANOCOBALAMIN 500 MCG TAB PO SCH (09:08)
[2023-06-04] MEDS: FERROUS SULFATE 325 MG TAB PO SCH (09:08)
[2023-06-04] MEDS: oxyCODONE-APAP 10-325MG 1 EACH TAB PO PRN (16:58)
[2023-06-04] MEDS: FINASTERIDE 5 MG TAB PO SCH (19:44)
[2023-06-04] MEDS: TAMSULOSIN 0.4 MG CAP.ER.24H PO SCH (19:44)
[2023-06-04] MEDS: KETOROLAC 15 MG/ML 1 ML VIAL IVP PRN (19:46)
--- NOTE | 2023-06-04 22:03 | P.HPIM ---
History of Present Illness H&P Date: 06/04/23 Chief Complaint: Allergic reaction. The patient is a 67-year-old black male with known history of DDD with opiate dependence who states that he had sudden swelling of the tongue. Angioedema was then diagnosed. No shortness of breath. No swallowing difficulties. No previo us history of allergic reactions. No known drug allergies. He denies any significant ethanol or illicit substance abuse. No soaps or dietary changes stated. Epinephrine with steroids have been instituted and he is having slight improvement. Past medical history includes reflux esophagitis element of DDD of the lumbar spine reflux esophagitis. Surgical history includes significant history of partial bowel obstruction last year with long recovery and surgical repair. Review of Systems Constitutional: Reports as per HPI Eyes: denies blurred vision, denies pain Ears, nose, mouth and throat: Reports swelling in mouth, Denies bleeding gums Cardiovascular: Denies chest pain, Denies shortness of breath Respiratory: Denies cough Gastrointestinal: Denies abdominal pain, Denies diarrhea, Denies nausea, Denies vomiting Integumentary: Reports as per HPI Past Medical History Past Medical History: GERD/Reflux, Hearing Disorder / Deafness, Hypertension, Osteoarthritis (OA), Prostate Disorder Additional Past Medical History / Comment(s): Hx Bowel obstruction, colitis, chronic back pain, DJD, BPH, deaf in R ear. History of Any Multi-Drug Resistant Organisms: MRSA Date of last positivie culture/infection: 2014 MDRO Source:: nose Past Surgical History: Back Surgery, Bowel Resection, Hernia Repair, Joint Replacement, Orthopedic Surgery Additional Past Surgical History / Comment(s): 11/16/21 lysis of adhesions, robotic small bowel decompression/extensive lysis of adhesions, colonoscopies, bilateral total hip arthroplasties/R hip twice, R total knee arthroplasty, ORIF clavicle/pin since removed, R inguinal hernia repair, pain clinic procedures. Past Anesthesia/Blood Transfusion Reactions: No Reported Reaction Additional Past Anesthesia/Blood Transfusion Reaction / Comment(s): No hx blood transfusion. Past Psychological History: No Psychological Hx Reported Smoking Status: Never smoker - Past Family History Father Family Medical History: Congestive Heart Failure (CHF) Brother(s) Family Medical History: Deep Vein Thrombosis (DVT) Mother Family Medical History: No Reported History Medications and Allergies Home Medications Medication Instructions Recorded Confirmed Type oxyCODONE-APAP 10-325MG [Percocet 1 tab PO QID PRN 05/31/14 06/04/23 History 10-325 mg] carisoprodoL [Soma] 350 mg PO QID PRN 07/04/16 06/04/23 History Cetirizine HCl [Zyrtec] 10 mg PO DAILY 01/15/18 06/04/23 History Dutasteride [Avodart] 0.5 mg PO HS 03/16/20 06/04/23 History Pantoprazole Sodium [Protonix] 40 mg PO DAILY 03/16/20 06/04/23 History Tamsulosin [Flomax] 0.8 mg PO HS 03/29/20 06/04/23 History tadalafiL [Cialis] 5 mg PO DAILY PRN 03/29/20 06/04/23 History Zolpidem [Ambien] 10 mg PO HS 11/19/20 06/04/23 History Famotidine 20 mg PO DAILY 7 Days #7 tab 10/29/22 06/04/23 Rx Ibuprofen [Motrin] 800 mg PO TID PRN 10/29/22 06/04/23 History Levocetirizine Dihydrochloride 5 mg PO DAILY 10/29/22 06/04/23 History [Xyzal] Bisoprolol-Hctz 5-6.25 mg [Ziac 1 tab PO DAILY 12/31/22 06/04/23 History 5-6.25 MG] Ferrous Sulfate [Feosol] 325 mg PO DAILY 12/31/22 06/04/23 History Multivitamins, Thera [Multivitamin 1 tab PO DAILY 12/31/22 06/04/23 History (formulary)] Vitamin B-12 (Unknown Dose) 1 dose PO DAILY 12/31/22 06/04/23 History Aspirin [Adult Low Dose Aspirin EC] 81 mg PO BID #1 tab 01/06/23 06/04/23 Rx Allergies Allergy/AdvReac Type Severity Reaction Status Date / Time No Known Allergies Allergy Verified 06/04/23 06:55 Physical Exam Vitals: Vital Signs Temp Pulse Resp BP Pulse Ox 06/04/23 18:18 61 18 153/85 98 06/04/23 15:42 58 L 16 129/71 100 06/04/23 10:52 73 16 140/79 97 06/04/23 06:09 61 18 126/59 99 06/04/23 05:24 67 18 136/76 100 06/04/23 03:44 54 L 18 141/76 100 06/04/23 03:31 98.9 F 64 18 190/98 100 Intake and Output 06/04/23 06/04/23 06/04/23 06:59 14:59 22:59 Other: Weight 108.862 kg - Constitutional General appearance: no acute distress - EENT Tongue swelling Eyes: EOMI ENT: other - Neck Neck: no lymphadenopathy - Respiratory Respiratory: bilateral: CTA - Cardiovascular Rhythm: regular Heart sounds: normal: S1, S2 Abnormal Heart Sounds: no S3 Gallop - Neurologic Neurologic: CNII-XII intact Results CBC & Chem 7: 06/04/23 03:51 06/04/23 03:51 Labs: Abnormal Lab Results - Last 24 Hours (Table) 06/04/23 06/04/23 Range/Units 03:51 03:51 Hgb 12.7 L (13.0-17.5) gm/dL RDW 15.8 H (11.5-15.5) % Plt Count 140 L (150-450) k/uL Chloride 111 H (98-107) mmol/L BUN 21 H (9-20) mg/dL Creatinine 1.29 H (0.66-1.25) mg/dL Alkaline Phosphatase 129 H (38-126) U/L Albumin 3.4 L (3.5-5.0) g/dL Assessment and Plan (1) Angioedema Current Visit: Yes Status: Acute Code(s): T78.3XXA - ANGIONEUROTIC EDEMA, INITIAL ENCOUNTER SNOMED Code(s): 15961914 (2) Tongue edema Current Visit: Yes Status: Acute Code(s): K14.8 - OTHER DISEASES OF TONGUE SNOMED Code(s): 27721712 (3) BPH (benign prostatic hyperplasia) Current Visit: No Status: Acute Code(s): N40.0 - BENIGN PROSTATIC HYPERPLASIA WITHOUT LOWER URINRY TRACT SYMP SNOMED Code(s): 729942692 Plan: Continue steroids and histamine joseph. Epinephrine as needed. Reconcile home medications. Watch pulmonary status. The patient is significantly improved. Prognosis is guarded. Check CBC and CMP in a.m. Otherwise, reconcile home medication Time with Patient: Greater than 30
[2023-06-04] MEDS: ZOLPIDEM 5 MG TAB PO SCH (22:24)
[2023-06-05 06:15] VITALS: RESP 16
[2023-06-05 08:29] VITALS: BP 161/81; PULSE 66; TEMP 97.7
--- NOTE | 2023-06-05 09:04 | P.DS ---
Providers Date of admission: 06/04/23 06:35 Attending physician: Shaun Wang Primary care physician: Shaun Wang - Discharge Diagnosis(es) (1) Angioedema Current Visit: Yes Status: Acute (2) Tongue edema Current Visit: Yes Status: Acute (3) BPH (benign prostatic hyperplasia) Current Visit: No Status: Acute Hospital Course: This is a 67-year-old male who presented to the emergency department with complaints of sudden swelling of his tongue. He was diagnosed with angioedema. He has been maintained on steroids and has noticed significant improvement. Swelling has resided in patient's tongue. He is anxious to go home. Patient may be discharged today if tolerating diet. Will send home with a Medrol Dosepak. Patient seen and evaluated by nurse practitioner, physician in agreement with plan Patient Condition at Discharge: Stable Plan - Discharge Summary New Discharge Prescriptions: New methylPREDNISolone Dose Pack [Medrol Dose Pack] 4 mg PO DIRECTED #21 tab Continue oxyCODONE-APAP 10-325MG [Percocet 10-325 mg] 1 tab PO QID PRN PRN Reason: Pain carisoprodoL [Soma] 350 mg PO QID PRN PRN Reason: Pain Cetirizine HCl [Zyrtec] 10 mg PO DAILY Dutasteride [Avodart] 0.5 mg PO HS Pantoprazole Sodium [Protonix] 40 mg PO DAILY Tamsulosin [Flomax] 0.8 mg PO HS tadalafiL [Cialis] 5 mg PO DAILY PRN PRN Reason: E.D. Zolpidem [Ambien] 10 mg PO HS Famotidine 20 mg PO DAILY 7 Days #7 tab Ibuprofen [Motrin] 800 mg PO TID PRN PRN Reason: Pain Levocetirizine Dihydrochloride [Xyzal] 5 mg PO DAILY Bisoprolol-Hctz 5-6.25 mg [Ziac 5-6.25 MG] 1 tab PO DAILY Ferrous Sulfate [Iron (65 MG Elemental)] 325 mg PO DAILY Multivitamins, Thera [Multivitamin (formulary)] 1 tab PO DAILY Vitamin B-12 (Unknown Dose) 1 dose PO DAILY Aspirin [Adult Low Dose Aspirin EC] 81 mg PO BID #1 tab Discharge Medication List oxyCODONE-APAP 10-325MG [Percocet 10-325 mg] 1 tab PO QID PRN 05/31/14 [History] carisoprodoL [Soma] 350 mg PO QID PRN 07/04/16 [History] Cetirizine HCl [Zyrtec] 10 mg PO DAILY 01/15/18 [History] Dutasteride [Avodart] 0.5 mg PO HS 03/16/20 [History] Pantoprazole Sodium [Protonix] 40 mg PO DAILY 03/16/20 [History] Tamsulosin [Flomax] 0.8 mg PO HS 03/29/20 [History] tadalafiL [Cialis] 5 mg PO DAILY PRN 03/29/20 [History] Zolpidem [Ambien] 10 mg PO HS 11/19/20 [History] Famotidine 20 mg PO DAILY 7 Days #7 tab 10/29/22 [Rx] Ibuprofen [Motrin] 800 mg PO TID PRN 10/29/22 [History] Levocetirizine Dihydrochloride [Xyzal] 5 mg PO DAILY 10/29/22 [History] Bisoprolol-Hctz 5-6.25 mg [Ziac 5-6.25 MG] 1 tab PO DAILY 12/31/22 [History] Ferrous Sulfate [Iron (65 MG Elemental)] 325 mg PO DAILY 12/31/22 [History] Multivitamins, Thera [Multivitamin (formulary)] 1 tab PO DAILY 12/31/22 [History] Vitamin B-12 (Unknown Dose) 1 dose PO DAILY 12/31/22 [History] Aspirin [Adult Low Dose Aspirin EC] 81 mg PO BID #1 tab 01/06/23 [Rx] methylPREDNISolone Dose Pack [Medrol Dose Pack] 4 mg PO DIRECTED #21 tab 06/05/23 [Rx] Follow up Appointment(s)/Referral(s): Shaun Wang MD [Primary Care Provider] - 3 Days Discharge Disposition: HOME SELF-CARE
[2023-06-05 11:17] LABS: HGB 12.2 g/dL (13.0-17.0); MCH 27.2 pg (27.0-32.0); MCHC 32.1 g/dL (32.0-37.0); MCV 84.8 FL (80.0-97.0); Mean Platelet Volume 12.3 FL (9.5-12.2); NRBC Per 100 WBC 0 X 10*3/uL (0.00-0.01); Platelet Count 144 X 10*3/uL (140-440); RBC 4.48 X 10*6/uL (4.40-5.60); RDW 16.3 % (11.5-14.5); WBC 10.63 X 10*3/uL (4.50-10.00)
[2023-06-05 11:41] LABS: ALT 22 U/L (10-49); AST 22 U/L (14-35); Albumin 3.6 g/dL (3.8-4.9); Albumin/Globulin Ratio 1.33 Ratio (1.60-3.17); Alkaline Phosphatase 108 U/L (41-126); BUN/Creat Ratio 19.42 Ratio (12.00-20.00); Blood Urea Nitrogen 23.3 mg/dL (9.0-27.0); Calcium 8.8 mg/dL (8.7-10.3); Carbon Dioxide 18.4 mmol/L (21.6-31.8); Chloride 108 mmol/L (96-109); Globulin 2.7 g/dL (1.6-3.3); Glucose 145 mg/dL (70-110); Potassium 3.9 mmol/L (3.5-5.5); Sodium 140 mmol/L (135-145); Total Bilirubin 0.3 mg/dL (0.3-1.2); Total Protein 6.3 g/dL (6.2-8.2)
== END 2023-06-05 11:19 | disposition home or self-care (01) ==
LOC: EC 03:28 → 6NMEDSUR 06:35
PROVIDERS: ADMIT Family Medicine; ATTEND Family Medicine
DX: T78.3XXA Angioneurotic edema, initial encounter (principal); K14.8 Other diseases of tongue; N40.0 Benign prostatic hyperplasia without lower urinary tract symptoms; I10 Essential (primary) hypertension; K21.00 Gastro-esophageal reflux disease with esophagitis, without bleeding; Z79.899 Other long term (current) drug therapy; Z79.82 Long term (current) use of aspirin; Z79.52 Long term (current) use of systemic steroids
CPT/HCPCS: 96376 ×3; 96361; 96374; 96375; 99291; 36415; 80053 ×2; 83735; 84100; 85025; 85027; 86140; G0378 ×2; S0138; J1200; J1100 ×3; J3490; J1885; J2919

== ENCOUNTER 2023-06-26 09:39 | Day surgery (SDC) | payer MEDICARE, OTHER ==
[2023-06-24 09:50] VITALS: BMI 33.5
[2023-06-26] MEDS: LACTATED RINGERS 1,000 ML IV SCH (10:09)
[2023-06-26 10:40] VITALS: TEMP 97.6
[2023-06-26] MEDS ORDERED: PROPOFOL 10 MG/ML 20 ML VIAL IV ONE (11:02)
--- NOTE | 2023-06-26 11:21 | P.GSHP ---
History of Present Illness H&P Date: 06/26/23 CHIEF COMPLAINT: Colon screen HISTORY OF PRESENT ILLNESS: The patient is a 67-year-old male who presents for colon screen. Lower endoscopy was offered for further evaluation and management. PAST MEDICAL HISTORY: Please see list. PAST SURGICAL HISTORY: Please see list. MEDICATIONS: Please see list. ALLERGIES: Please see list. SOCIAL HISTORY: No illicit drug use FAMILY HISTORY: No reports of Crohn disease or ulcerative colitis. REVIEW OF ORGAN SYSTEMS: CONSTITUTIONAL: No reports of fevers or chills. PHYSICAL EXAM: VITAL SIGNS: Stable GENERAL: Well-developed pleasant in no acute distress. HEENT: No scleral icterus. Extraocular movements grossly intact. Moist buccal mucosa. NECK: Supple without lymphadenopathy. CHEST: Unlabored respirations. Equal bilateral excursions. CARDIOVASCULAR: Regular rate and rhythm. Distal 2+ pulses. ABDOMEN: Soft, nontender, nondistended. MUSCULOSKELETAL: No clubbing, cyanosis, or edema. ASSESSMENT: 1. Colon screen. PLAN: 1. Recommend proceeding with a lower endoscopy Past Medical History Past Medical History: GERD/Reflux, Hearing Disorder / Deafness, Hypertension, Osteoarthritis (OA), Prostate Disorder Additional Past Medical History / Comment(s): Hx Bowel obstruction, colitis, chronic back pain, DJD, BPH, deaf in R ear. History of Any Multi-Drug Resistant Organisms: MRSA Date of last positivie culture/infection: 2014 MDRO Source:: nose Past Surgical History: Back Surgery, Bowel Resection, Hernia Repair, Joint Replacement, Orthopedic Surgery Additional Past Surgical History / Comment(s): 11/16/21 lysis of adhesions, robotic small bowel decompression/extensive lysis of adhesions, colonoscopies, bilateral total hip arthroplasties/R hip twice, R total knee arthroplasty, ORIF clavicle/pin since removed, R inguinal hernia repair, pain clinic procedures. Past Anesthesia/Blood Transfusion Reactions: No Reported Reaction Additional Past Anesthesia/Blood Transfusion Reaction / Comment(s): No hx blood transfusion. Smoking Status: Never smoker - Past Family History Father Family Medical History: Congestive Heart Failure (CHF) Brother(s) Family Medical History: Deep Vein Thrombosis (DVT) Mother Family Medical History: No Reported History Medications and Allergies Home Medications Medication Instructions Recorded Confirmed Type oxyCODONE-APAP 10-325MG [Percocet 1 tab PO QID PRN 05/31/14 06/26/23 History 10-325 mg] carisoprodoL [Soma] 350 mg PO QID PRN 07/04/16 06/26/23 History Cetirizine HCl [Zyrtec] 10 mg PO DAILY 01/15/18 06/26/23 History Dutasteride [Avodart] 0.5 mg PO HS 03/16/20 06/26/23 History Pantoprazole Sodium [Protonix] 40 mg PO DAILY 03/16/20 06/26/23 History Tamsulosin [Flomax] 0.8 mg PO HS 03/29/20 06/26/23 History tadalafiL [Cialis] 5 mg PO DAILY PRN 03/29/20 06/26/23 History Zolpidem [Ambien] 10 mg PO HS 11/19/20 06/26/23 History Famotidine 20 mg PO DAILY 7 Days #7 tab 10/29/22 06/26/23 Rx Ibuprofen [Motrin] 800 mg PO TID PRN 10/29/22 06/26/23 History Levocetirizine Dihydrochloride 5 mg PO DAILY 10/29/22 06/26/23 History [Xyzal] Bisoprolol-Hctz 5-6.25 mg [Ziac 1 tab PO DAILY 12/31/22 06/26/23 History 5-6.25 MG] Ferrous Sulfate [Iron (65 MG 325 mg PO DAILY 12/31/22 06/26/23 History Elemental)] Multivitamins, Thera [Multivitamin 1 tab PO DAILY 12/31/22 06/26/23 History (formulary)] Vitamin B-12 (Unknown Dose) 1 dose PO DAILY 12/31/22 06/26/23 History Allergies Allergy/AdvReac Type Severity Reaction Status Date / Time No Known Allergies Allergy Verified 06/26/23 10:05 Surgical - Exam Vital Signs Temp Pulse Resp BP Pulse Ox 97.6 F 57 L 16 144/68 99 06/26/23 10:06/26/23 10:06/26/23 10:06/26/23 10:06/26/23 10:03
--- NOTE | 2023-06-26 11:25 | P.PCN ---
Date of Procedure: 06/26/23 Description of Procedure: PREOPERATIVE DIAGNOSIS: Change in bowel habits POSTOPERATIVE DIAGNOSIS: Scattered diverticulosis Microscopic colitis OPERATION: Colonoscopy to the cecum, ileocecal valve and appendiceal orifice. Colonoscopy with random biopsies for microscopic colitis SURGEON: Lizet Steele MD. ANESTHESIA: MAC. INDICATIONS: The patient is a 67-year-old male who presents for colonoscopy screening. Benefits and risks were described and informed consent was obtained. DESCRIPTION OF PROCEDURE: The patient had undergone GoLytely prep. The patient had been brought into the operating room and laid in the left lateral decubitus position. After adequate intravenous sedation, the rectum was examined with 2% lidocaine jelly. No external hemorrhoids were encountered. The rectal tone was within normal limits. No lesions were palpated in the rectal vault. An Olympus colonoscope was advan ria until the cecum, ileocecal valve and appendiceal orifice were clearly viewed. The prep was excellent. Scattered diverticulosis was encountered. No colonic polyps were found. Biopsies were obtained for microscopic colitis. Retroflexion of the scope demonstrated grade 1 internal hemorrhoids without active bleeding or inflammation. The colon was desufflated. The patient had tolerated the procedure well. Withdrawal time was over 6 minutes. FINDINGS: Aronchick preparation quality scale 1(1-5) Internal hemorrhoids, grade 1 No external prolapsed hemorrhoids. No arteriovenous malformations. No adenomatous polyps. Random cold forcep biopsies obtained for microscopic colitis RECOMMENDATIONS: Lower endoscopy 5 years, 2028 Plan - Discharge Summary Discharge Rx Participant: No New Discharge Prescriptions: Continue oxyCODONE-APAP 10-325MG [Percocet 10-325 mg] 1 tab PO QID PRN PRN Reason: Pain carisoprodoL [Soma] 350 mg PO QID PRN PRN Reason: Pain Cetirizine HCl [Zyrtec] 10 mg PO DAILY Dutasteride [Avodart] 0.5 mg PO HS Pantoprazole Sodium [Protonix] 40 mg PO DAILY Tamsulosin [Flomax] 0.8 mg PO HS tadalafiL [Cialis] 5 mg PO DAILY PRN PRN Reason: E.D. Zolpidem [Ambien] 10 mg PO HS Famotidine 20 mg PO DAILY 7 Days #7 tab Ibuprofen [Motrin] 800 mg PO TID PRN PRN Reason: Pain Levocetirizine Dihydrochloride [Xyzal] 5 mg PO DAILY Bisoprolol-Hctz 5-6.25 mg [Ziac 5-6.25 MG] 1 tab PO DAILY Ferrous Sulfate [Iron (65 MG Elemental)] 325 mg PO DAILY Multivitamins, Thera [Multivitamin (formulary)] 1 tab PO DAILY Vitamin B-12 (Unknown Dose) 1 dose PO DAILY Discharge Medication List oxyCODONE-APAP 10-325MG [Percocet 10-325 mg] 1 tab PO QID PRN 05/31/14 [History] carisoprodoL [Soma] 350 mg PO QID PRN 07/04/16 [History] Cetirizine HCl [Zyrtec] 10 mg PO DAILY 01/15/18 [History] Dutasteride [Avodart] 0.5 mg PO HS 03/16/20 [History] Pantoprazole Sodium [Protonix] 40 mg PO DAILY 03/16/20 [History] Tamsulosin [Flomax] 0.8 mg PO HS 03/29/20 [History] tadalafiL [Cialis] 5 mg PO DAILY PRN 03/29/20 [History] Zolpidem [Ambien] 10 mg PO HS 11/19/20 [History] Famotidine 20 mg PO DAILY 7 Days #7 tab 10/29/22 [Rx] Ibuprofen [Motrin] 800 mg PO TID PRN 10/29/22 [History] Levocetirizine Dihydrochloride [Xyzal] 5 mg PO DAILY 10/29/22 [History] Bisoprolol-Hctz 5-6.25 mg [Ziac 5-6.25 MG] 1 tab PO DAILY 12/31/22 [History] Ferrous Sulfate [Iron (65 MG Elemental)] 325 mg PO DAILY 12/31/22 [History] Multivitamins, Thera [Multivitamin (formulary)] 1 tab PO DAILY 12/31/22 [History] Vitamin B-12 (Unknown Dose) 1 dose PO DAILY 12/31/22 [History] Follow up Appointment(s)/Referral(s): Lizet Steele MD [STAFF PHYSICIAN] - 07/22/23 9:00 am Patient Instructions/Handouts: Diverticulosis Diet (GEN), Diverticulosis (DC) Activity/Diet/Wound Care/Special Instructions: Repeat colonoscopy 5 years, 2028 Discharge Disposition: HOME SELF-CARE
[2023-06-26 12:10] VITALS: BP 117/80; PULSE 40; RESP 20
== END 2023-06-26 12:14 | disposition home or self-care (01) ==
LOC: ORWHC2ENDO 09:39
PROVIDERS: ATTEND Surgery Plastic and Reconstructive Surgery
DX: K57.30 Diverticulosis of large intestine without perforation or abscess without bleeding (principal); K52.839 Microscopic colitis, unspecified; K64.0 First degree hemorrhoids; I10 Essential (primary) hypertension; K21.9 Gastro-esophageal reflux disease without esophagitis; M19.90 Unspecified osteoarthritis, unspecified site; G89.29 Other chronic pain; Z96.643 Presence of artificial hip joint, bilateral; Z96.651 Presence of right artificial knee joint
CPT/HCPCS: 88305; 45380; J2704

== ENCOUNTER 2023-08-14 09:55 | Emergency (ER) | payer MEDICARE, OTHER ==
[2023-08-14 10:01] VITALS: RESP 18
--- NOTE | 2023-08-14 10:26 | ED ---
Abdominal Pain HPI - General Chief Complaint: Abdominal Pain Stated Complaint: bowel obstruction Time Seen by Provider: 08/14/23 09:57 Source: patient, family, RN notes reviewed, old records reviewed Mode of arrival: ambulatory Limitations: no limitations - History of Present Illness Initial Comments: 67-year-old male presents emergency department chief complaint of abdominal pain. Patient states he had a history of bowel obstructions he states that he woke up with some discomfort he states has been waxing and waning. Patient states that pain is more in the right lower quadrant. Patient denies any fevers or chills he still has his appendix he states that he has passed some gas and feels like he has to have a bowel movement but states he has had that even with a prior obstruction. Patient denies any chest pain shortness of breath no dysuria no flank pain - Related Data Home Medications Medication Instructions Recorded Confirmed oxyCODONE-APAP 10-325MG [Percocet 1 tab PO QID PRN 05/31/14 06/26/23 10-325 mg] carisoprodoL [Soma] 350 mg PO QID PRN 07/04/16 06/26/23 Cetirizine HCl [Zyrtec] 10 mg PO DAILY 01/15/18 06/26/23 Dutasteride [Avodart] 0.5 mg PO HS 03/16/20 06/26/23 Pantoprazole Sodium [Protonix] 40 mg PO DAILY 03/16/20 06/26/23 Tamsulosin [Flomax] 0.8 mg PO HS 03/29/20 06/26/23 tadalafiL [Cialis] 5 mg PO DAILY PRN 03/29/20 06/26/23 Zolpidem [Ambien] 10 mg PO HS 11/19/20 06/26/23 Ibuprofen [Motrin] 800 mg PO TID PRN 10/29/22 06/26/23 Levocetirizine Dihydrochloride 5 mg PO DAILY 10/29/22 06/26/23 [Xyzal] Bisoprolol-Hctz 5-6.25 mg [Ziac 1 tab PO DAILY 12/31/22 06/26/23 5-6.25 MG] Ferrous Sulfate [Iron (65 MG 325 mg PO DAILY 12/31/22 06/26/23 Elemental)] Multivitamins, Thera [Multivitamin 1 tab PO DAILY 12/31/22 06/26/23 (formulary)] Vitamin B-12 (Unknown Dose) 1 dose PO DAILY 12/31/22 06/26/23 Previous Rx's Medication Instructions Recorded Famotidine 20 mg PO DAILY 7 Days #7 tab 10/29/22 Ketorolac [Toradol] 10 mg PO Q8HR #15 tab 08/14/23 Allergies Allergy/AdvReac Type Severity Reaction Status Date / Time No Known Allergies Allergy Verified 08/14/23 10:01 Review of Systems ROS Statement: Those systems with pertinent positive or pertinent negative responses have been documented in the HPI. ROS Other: All systems not noted in ROS Statement are negative. Past Medical History Past Medical History: GERD/Reflux, Hearing Disorder / Deafness, Hypertension, Osteoarthritis (OA), Prostate Disorder Additional Past Medical History / Comment(s): Hx Bowel obstruction, colitis, chronic back pain, DJD, BPH, deaf in R ear. History of Any Multi-Drug Resistant Organisms: MRSA Date of last positivie culture/infection: 2014 MDRO Source:: nose Past Surgical History: Back Surgery, Bowel Resection, Hernia Repair, Joint Replacement, Orthopedic Surgery Additional Past Surgical History / Comment(s): 11/16/21 lysis of adhesions, robotic small bowel decompression/extensive lysis of adhesions, colonoscopies, bilateral total hip arthroplasties/R hip twice, R total knee arthroplasty, ORIF clavicle/pin since removed, R inguinal hernia repair, pain clinic procedures. Past Anesthesia/Blood Transfusion Reactions: No Reported Reaction Additional Past Anesthesia/Blood Transfusion Reaction / Comment(s): No hx blood transfusion. Past Psychological History: No Psychological Hx Reported Smoking Status: Never smoker Past Alcohol Use History: Occasional Past Drug Use History: None Reported - Past Family History Father Family Medical History: Congestive Heart Failure (CHF) Brother(s) Family Medical History: Deep Vein Thrombosis (DVT) Mother Family Medical History: No Reported History General Exam Limitations: no limitations General appearance: alert, in no apparent distress Head exam: Present: atraumatic, normocephalic, normal inspection Respiratory exam: Present: normal lung sounds bilaterally. Absent: respiratory distress, wheezes, rales, rhonchi, stridor Cardiovascular Exam: Present: regular rate, normal rhythm, normal heart sounds. Absent: systolic murmur, diastolic murmur, rubs, gallop, clicks GI/Abdominal exam: Present: soft, tenderness, normal bowel sounds. Absent: distended, guarding, rebound, rigid Course Vital Signs 08/14/23 08/14/23 08/14/23 09:57 12:01 12:39 Temperature 98 F 98 F 98.1 F Pulse Rate 60 60 62 Respiratory 18 18 18 Rate Blood Pressure 159/86 146/68 141/72 O2 Sat by Pulse 100 100 100 Oximetry Medical Decision Making - Medical Decision Making Was pt. sent in by a medical professional or institution (, PA, BRANDS EDITOR, urgent care, hospital, or [facility]...) When possible be specific @ -No Did you speak to anyone other than the patient for history (EMS, parent, family, police, friend...)? What history was obtained from this source @ -No Did you review nursing and triage notes (agree or disagree)? Why? @ -I reviewed and agree with nursing and triage notes Were old charts reviewed (outside hosp., previous admission, EMS record, old EKG, old radiological studies, urgent care reports/EKG's, [facility] records)? Report findings @ -Reviewed CT scan of the abdomen pelvis Differential Diagnosis (chest pain, altered mental status, abdominal pain women, abdominal pain men, vaginal bleeding, weakness, fever, dyspnea, syncope, headache, dizziness, GI bleed, back pain, seizure, CVA, palpatations, mental h ealth, musculoskeletal)? @ -Differential Abdominal Pain Men: Appendicitis, cholecystitis, diverticulosis, ischemic bowel, pancreatitis, hepatitis, UTI, gastroenteritis, AAA, incarcerated hernia, bowel obstruction, constipation, inflammatory bowel, hepatitis, peptic ulcer disease, splenic infarction, perforated viscus, testicular torsion, this is not meant to be an all-inclusive list EKG interpreted by me (3pts min.). @ -None X-rays interpreted by me (1pt min.). @ -None done CT interpreted by me (1pt min.). @ -CT to the abdomen pelvis without contrast showing right 4 mm ureteral calculus, no evidence of obstruction U/S interpreted by me (1pt. min.). @ -None done What testing was considered but not performed or refused? (CT, X-rays, U/S, labs)? Why? @ -None What meds were considered but not given or refused? Why? @ -None Did you discuss the management of the patient with other professionals (professionals i.e. , PA, BRANDS EDITOR, lab, RT, psych nurse, social science professor, electronic device repairer, teacher, bsa/aml compliance officer, heel caser)? Give summary @ -No Was smoking cessation discussed for >3mins.? @ -No Was critical care preformed (if so, how long)? @ -No Were there social determinants of health that impacted care today? How? (Homelessness, low income, unemployed, alcoholism, drug addiction, transportation, low edu. Level, literacy, decrease access to med. care, custodial, rehab)? @ -No Was there de-escalation of care discussed even if they declined (Discuss DNR or withdrawal of care, Hospice)? DNR status @ -No What co-morbidities impacted this encounter? (DM, HTN, Smoking, COPD, CAD, Cancer, CVA, ARF, Chemo, Hep., AIDS, mental health diagnosis, sleep apnea, morbid obesity)? @ -None Was patient admitted / discharged? Hospital course, mention meds given and route, prescriptions, significant lab abnormalities, going to OR and other pertinent info. @ -Discharge patient's pain is improved. Patient has evidence of ureteral calculus will be discharged in stable condition he will continue his Flomax, analgesics at home patient was discharged with Toradol. Undiagnosed new problem with uncertain prognosis? @ -No Drug Therapy requiring intensive monitoring for toxicity (Heparin, Nitro, Insulin, Cardizem)? @ -No Were any procedures done? @ -No Diagnosis/symptom? @ -Right ureteral calculus Acute, or Chronic, or Acute on Chronic? @ -Acute Uncomplicated (without systemic symptoms) or Complicated (systemic symptoms)? @ -Uncomplicated Side effects of treatment? @ -No Exacerbation, Progression, or Severe Exacerbation? @ -No Poses a threat to life or bodily function? How? (Chest pain, [place], [place], pneumonia, PE, COPD, DKA, ARF, appy, cholecystitis, CVA, Diverticulitis, Homicidal, Suicidal, threat to staff... and all critical care pts) @ -No - Lab Data Result diagrams: 08/14/23 10:43 08/14/23 10:43 Lab Results 08/14/23 08/14/23 08/14/23 Range/Units 10:43 10:43 10:43 WBC 5.5 (3.8-10.6) k/uL RBC 4.48 (4.30-5.90) m/uL Hgb 12.3 L (13.0-17.5) gm/dL Hct 40.5 (39.0-53.0) % MCV 90.3 (80.0-100.0) fL MCH 27.6 (25.0-35.0) pg MCHC 30.5 L (31.0-37.0) g/dL RDW 15.8 H (11.5-15.5) % Plt Count 134 L (150-450) k/uL MPV 9.7 Neutrophils % 42 % Lymphocytes % 45 % Monocytes % 6 % Eosinophils % 4 % Basophils % 0 % Neutrophils # 2.3 (1.3-7.7) k/uL Lymphocytes # 2.5 (1.0-4.8) k/uL Monocytes # 0.4 (0-1.0) k/uL Eosinophils # 0.2 (0-0.7) k/uL Basophils # 0.0 (0-0.2) k/uL Hypochromasia Slight Sodium 141 (137-145) mmol/L Potassium 4.0 (3.5-5.1) mmol/L Chloride 114 H (98-107) mmol/L Carbon Dioxide 21 L (22-30) mmol/L Anion Gap 6 mmol/L BUN 21 H (9-20) mg/dL Creatinine 1.04 (0.66-1.25) mg/dL Est GFR (CKD-EPI)AfAm 87 (>60 ml/min/1.73 sqM) Est GFR (CKD-EPI)NonAf 75 (>60 ml/min/1.73 sqM) Glucose 102 H (74-99) mg/dL Plasma Lactic Acid Everette 0.9 (0.7-2.0) mmol/L Calcium 8.8 (8.4-10.2) mg/dL Total Bilirubin 0.5 (0.2-1.3) mg/dL AST 24 (17-59) U/L ALT 19 (4-49) U/L Alkaline Phosphatase 109 (38-126) U/L Total Protein 6.5 (6.3-8.2) g/dL Albumin 3.8 (3.5-5.0) g/dL Lipase 31 (23-300) U/L Disposition Clinical Impression: Right ureteral calculus Disposition: HOME SELF-CARE Condition: Stable Instructions (If sedation given, give patient instructions): Kidney Stones (ED) Additional Instructions: Please return to the Emergency Department if symptoms worsen or any other concerns. Prescriptions: Ketorolac [Toradol] 10 mg PO Q8HR #15 tab Is patient prescribed a controlled substance at d/c from ED?: No Referrals: Shaun Wang MD [Primary Care Provider] - 1-2 days Bobby Guillaume MD [STAFF PHYSICIAN] - 1-2 days Time of Disposition: 12:25
[2023-08-14] MEDS: SODIUM CHLORIDE 0.9% 500 ML 500 ML IV STA (10:50)
[2023-08-14] MEDS: HYDROmorphone 0.5 MG/0.5 ML SYRINGE IVP STA (11:12)
[2023-08-14 11:18] LABS: Basophils % (A) 0 %; Eosinophils # (A) 0.2 k/uL (0-0.7); Eosinophils % (A) 4 %; HCT 40.5 % (39.0-53.0); HGB 12.3 gm/dL (13.0-17.5); Hypochromasia Slight; Lymphocytes # (A) 2.5 k/uL (1.0-4.8); Lymphocytes % (A) 45 %; MCH 27.6 pg (25.0-35.0); MCHC 30.5 g/dL (31.0-37.0); MCV 90.3 fL (80.0-100.0); Mean Platelet Volume 9.7; Monocytes # (A) 0.4 k/uL (0-1.0); Monocytes % (A) 6 %; Neutrophils # (A) 2.3 k/uL (1.3-7.7); Neutrophils % (A) 42 %; Platelet Count 134 k/uL (150-450); RBC 4.48 m/uL (4.30-5.90); RDW 15.8 % (11.5-15.5); WBC 5.5 k/uL (3.8-10.6)
[2023-08-14 11:29] LABS: ALT 19 U/L (4-49); AST 24 U/L (17-59); African American GFR (CKD) 87 (>60 ml/min/1.73 sqM); Albumin 3.8 g/dL (3.5-5.0); Alkaline Phosphatase 109 U/L (38-126); Anion Gap 6 mmol/L; Blood Urea Nitrogen 21 mg/dL (9-20); Calcium 8.8 mg/dL (8.4-10.2); Carbon Dioxide 21 mmol/L (22-30); Chloride 114 mmol/L (98-107); Glucose 102 mg/dL (74-99); Lipase 31 U/L (23-300); Non-African American GFR(CKD) 75 (>60 ml/min/1.73 sqM); Sodium 141 mmol/L (137-145); Total Bilirubin 0.5 mg/dL (0.2-1.3); Total Protein 6.5 g/dL (6.3-8.2)
--- NOTE | 2023-08-14 12:13 | CT ---
EXAMINATION TYPE: CT abdomen pelvis wo con DATE OF EXAM: 08/14/2023 COMPARISON: 03/12/2022 HISTORY: 67-year-old male Generalized abdominal pain CT DLP: 1202.4 mGycm. Automated exposure control for dose reduction was used. TECHNIQUE: Contiguous axial scanning of the abdomen and pelvis without IV contrast. Coronal and sagit barb reconstructions performed. FINDINGS: Heart normal size without pericardial effusion. Some strandy atelectasis or scarring in the lower miquel gs. No pleural effusion. Small hiatal hernia. Noncontrast appearance of the liver, gallbladder, adrenal glands, spleen, pancreas and no gross abnor mality. There is a 2.2 cm cortical cyst left kidney. Punctate 2 mm nonobstructive left renal calculus. Passage of a 4 mm stone now into the mid right ureter. Mild asymmetric fullness of right renal collec ting system. Surgical material involving bowel in the lower abdomen. Scattered prominent fluid-filled small bowel loops may be transient. The loops are mildly dilated up to 3.4 cm. There is some liquid stool within the right hemicolon. Some diverticular change at the junction of the descending and sigmoid colon. No pericolonic inflammatory change seen. Limited assessment of the pelvis due to extensive artifacts from the patient's total arthroplasty. Bones: Postsurgical changes L3-L5 posterior and interbody lumbar fusion. There appears to be chronic bony ankylosis across L5-S1 as well. IMPRESSION: 1. A 4 mm stone within the mid right ureter with minimal obstructive uropathy. 2. Punctate 2 mm nonobstructive left renal calculus. 3. Surgical material in the lower abdomen related to prior bowel surgery. There are scattered promin ent fluid-filled small bowel loops and additional liquid stool in the right side of the colon. Consid er an enteritis. If symptoms worsen, given that a couple segments are mildly dilated up to 3.4 cm, sh ort interval follow-up can be performed.
[2023-08-14 12:42] VITALS: BP 141/72; PULSE 62; TEMP 98.1
== END 2023-08-14 13:16 | disposition home or self-care (01) ==
LOC: EC 09:55
DX: N20.1 Calculus of ureter (principal)
CPT/HCPCS: 36415; 80053; 83605; 83690; 85025; 74176; 99284; 96374; J1170

== ENCOUNTER 2023-08-15 09:35 | Emergency (ER) | payer MEDICARE, OTHER ==
[2023-08-15 09:46] VITALS: TEMP 97.4
[2023-08-15] MEDS: HYDROmorphone 0.5 MG/0.5 ML SYRINGE IVP STA ×2 (10:53→12:45)
--- NOTE | 2023-08-15 11:14 | ED ---
General Adult HPI - General Chief complaint: Abdominal Pain Stated complaint: Abdominal Pain Time Seen by Provider: 08/15/23 10:11 Source: patient, RN notes reviewed Mode of arrival: ambulatory Limitations: no limitations - History of Present Illness Initial comments: 67-year-old male presents to the emergency department for evaluation of right lower abdominal pain. He states that he was here yesterday for same and was diagnosed with a 4 mm kidney stone. He states that he has been taking toradol and had significant relief with that. Patient states that today he noticed a severe wave of pain but this has since improved. He admits to nausea at that time. He is on percocet 10mg chronically. - Related Data Home Medications Medication Instructions Recorded Confirmed oxyCODONE-APAP 10-325MG [Percocet 1 tab PO QID PRN 05/31/14 08/15/23 10-325 mg] carisoprodoL [Soma] 350 mg PO QID PRN 07/04/16 08/15/23 Cetirizine HCl [Zyrtec] 10 mg PO DAILY 01/15/18 08/15/23 Dutasteride [Avodart] 0.5 mg PO HS 03/16/20 08/15/23 Pantoprazole Sodium [Protonix] 40 mg PO DAILY 03/16/20 08/15/23 Tamsulosin [Flomax] 0.8 mg PO HS 03/29/20 08/15/23 tadalafiL [Cialis] 5 mg PO DAILY PRN 03/29/20 08/15/23 Zolpidem [Ambien] 10 mg PO HS 11/19/20 08/15/23 Ibuprofen [Motrin] 800 mg PO TID PRN 10/29/22 08/15/23 Levocetirizine Dihydrochloride 5 mg PO DAILY 10/29/22 08/15/23 [Xyzal] Bisoprolol-Hctz 5-6.25 mg [Ziac 1 tab PO DAILY 12/31/22 08/15/23 5-6.25 MG] Ferrous Sulfate [Iron (65 MG 325 mg PO DAILY 12/31/22 08/15/23 Elemental)] Multivitamins, Thera [Multivitamin 1 tab PO DAILY 12/31/22 08/15/23 (formulary)] Vitamin B-12 (Unknown Dose) 1 dose PO DAILY 12/31/22 08/15/23 Previous Rx's Medication Instructions Recorded Ketorolac [Toradol] 10 mg PO Q8HR #15 tab 08/14/23 Allergies Allergy/AdvReac Type Severity Reaction Status Date / Time No Known Allergies Allergy Verified 08/15/23 10:07 Review of Systems ROS Statement: Those systems with pertinent positive or pertinent negative responses have been documented in the HPI. ROS Other: All systems not noted in ROS Statement are negative. Past Medical History Past Medical History: GERD/Reflux, Hearing Disorder / Deafness, Hypertension, Osteoarthritis (OA), Prostate Disorder Additional Past Medical History / Comment(s): Hx Bowel obstruction, colitis, chronic back pain, DJD, BPH, deaf in R ear. History of Any Multi-Drug Resistant Organisms: MRSA Date of last positivie culture/infection: 2014 MDRO Source:: nose Past Surgical History: Back Surgery, Bowel Resection, Hernia Repair, Joint Replacement, Orthopedic Surgery Additional Past Surgical History / Comment(s): 11/16/21 lysis of adhesions, robotic small bowel decompression/extensive lysis of adhesions, colonoscopies, bilateral total hip arthroplasties/R hip twice, R total knee arthroplasty, ORIF clavicle/pin since removed, R inguinal hernia repair, pain clinic procedures. Past Anesthesia/Blood Transfusion Reactions: No Reported Reaction Additional Past Anesthesia/Blood Transfusion Reaction / Comment(s): No hx blood transfusion. Past Psychological History: No Psychological Hx Reported Smoking Status: Never smoker Past Alcohol Use History: Occasional Past Drug Use History: None Reported - Past Family History Father Family Medical History: Congestive Heart Failure (CHF) Brother(s) Family Medical History: Deep Vein Thrombosis (DVT) Mother Family Medical History: No Reported History General Exam Limitations: no limitations General appearance: alert, in no apparent distress Head exam: Present: atraumatic, normocephalic, normal inspection Eye exam: Present: normal appearance, PERRL, EOMI. Absent: scleral icterus, conjunctival injection, periorbital swelling ENT exam: Present: normal exam, mucous membranes moist Neck exam: Present: normal inspection. Absent: tenderness, meningismus, lymp hadenopathy Respiratory exam: Present: normal lung sounds bilaterally. Absent: respiratory distress, wheezes, rales, rhonchi, stridor Cardiovascular Exam: Present: regular rate, normal rhythm, normal heart sounds. Absent: systolic murmur, diastolic murmur, rubs, gallop, clicks GI/Abdominal exam: Present: soft, normal bowel sounds. Absent: distended, tenderness, guarding, rebound, rigid Extremities exam: Present: normal inspection, full ROM, normal capillary refill. Absent: tenderness, pedal edema, joint swelling, calf tenderness Back exam: Present: normal inspection Neurological exam: Present: alert, oriented X3 Psychiatric exam: Present: normal affect, normal mood Skin exam: Present: warm, dry, intact, normal color. Absent: rash Course Vital Signs 08/15/23 08/15/23 08/15/23 09:41 10:58 12:01 Temperature 97.4 F L Pulse Rate 47 L 47 L 44 L Respiratory 18 20 18 Rate Blood Pressure 139/75 146/82 153/87 O2 Sat by Pulse 100 100 100 Oximetry 08/15/23 12:48 Temperature Pulse Rate 52 L Respiratory 18 Rate Blood Pressure 160/84 O2 Sat by Pulse 100 Oximetry Medical Decision Making - Medical Decision Making Was pt. sent in by a medical professional or institution (Dr. PA, BOOKER, urgent care, hospital, or usp...) When possible be specific @ -No Did you speak to anyone other than the patient for history (EMS, parent, family, police, friend...)? What history was obtained from this source @ -No Did you review nursing and triage notes (agree or disagree)? Why? @ -I reviewed and agree with nursing and triage notes Were old charts reviewed (outside hosp., previous admission, EMS record, old EKG, old radiological studies, urgent care reports/EKG's, usp records)? Report findings @ -Results from yesterdays visit were reviewed Differential Diagnosis (chest pain, altered mental status, abdominal pain women, abdominal pain men, vaginal bleeding, weakness, fever, dyspnea, syncope, headache, dizziness, GI bleed, back pain, seizure, CVA, palpatations, mental health, musculoskeletal)? @ -Differential Abdominal Pain Men: Appendicitis, cholecystitis, diverticulosis, ischemic bowel, pancreatitis, hepatitis, UTI, gastroenteritis, AAA, incarcerated hernia, bowel obstruction, constipation, inflammatory bowel, hepatitis, peptic ulcer disease, splenic infarction, perforated viscus, testicular torsion, this is not meant to be an all-inclusive list EKG interpreted by me (3pts min.). @ -None X-rays interpreted by me (1pt min.). @ -KUB x-ray shows nonspecific bowel gas pattern, no abnormal calcifications present CT interpreted by me (1pt min.). @ -None done U/S interpreted by me (1pt. min.). @ -None done What testing was considered but not performed or refused? (CT, X-rays, U/S, labs)? Why? @ -None What meds were considered but not given or refused? Why? @ -None Did you discuss the management of the patient with other professionals (professionals i.e. , PA, BOOKER, lab, RT, psych nurse, social services manager, account installer, teacher, first aid officer, medical case worker)? Give summary @ -No Was smoking cessation discussed for >3mins.? @ -No Was critical care preformed (if so, how long)? @ -No Were there social determinants of health that impacted care today? How? (Homelessness, low income, unemployed, alcoholism, drug addiction, transportation, low edu. Level, literacy, decrease access to med. care, shelter, rehab)? @ -No Was there de-escalation of care discussed even if they declined (Discuss DNR or withdrawal of care, Hospice)? DNR status @ -No What co-morbidities impacted this encounter? (DM, HTN, Smoking, COPD, CAD, Cancer, CVA, ARF, Chemo, Hep., AIDS, mental health diagnosis, sleep apnea, morbid obesity)? @ -None Was patient admitted / discharged? Hospital course, mention meds given and route, prescriptions, significant lab abnormalities, going to OR and other pertinent info. @ -Discharged. patient presented to the emergency department for evaluation of right-sided abdominal/groin pain. He was diagnosed with a kidney stone yesterday measuring 4 mm. Repeat laboratory studies obtained.Creatinine 1.3, moderate blood in UA with 98 RBCs. A KUB x-ray was obtained which does not show any abnormal calcifications. Discussed these findings with patient, he was provided medication for pain control while in the ED. Offered inpatient treatment for pain control and urology consultation versus continued outpatient treatment. Patient would like to be discharged home. Patient stable at time of discharge. Case discussed with Dr. Kingston. Undiagnosed new problem with uncertain prognosis? @ -No Drug Therapy requiring intensive monitoring for toxicity (Heparin, Nitro, Insulin, Cardizem)? @ -No Were any procedures done? @ -No Diagnosis/symptom? @ -Urolithiasis Acute, or Chronic, or Acute on Chronic? @ -Acute Uncomplicated (without systemic symptoms) or Complicated (systemic symptoms)? @ -Uncomplicated Side effects of treatment? @ -No Exacerbation, Progression, or Severe Exacerbation? @ -No Poses a threat to life or bodily function? How? (Chest pain, USA, GA, pneumonia, PE, COPD, DKA, ARF, appy, cholecystitis, CVA, Diverticulitis, Homicidal, Suicidal, threat to staff... and all critical care pts) @ -No - Lab Data Result diagrams: 08/15/23 10:58 08/15/23 10:58 Lab Results 08/15/23 08/15/23 08/15/23 Range/Units 10:58 10:58 10:58 WBC 5.8 (3.8-10.6) k/uL RBC 4.44 (4.30-5.90) m/uL Hgb 12.2 L (13.0-17.5) gm/dL Hct 39.4 (39.0-53.0) % MCV 88.8 (80.0-100.0) fL MCH 27.4 (25.0-35.0) pg MCHC 30.8 L (31.0-37.0) g/dL RDW 15.9 H (11.5-15.5) % Plt Count 133 L (150-450) k/uL MPV 10.1 Neutrophils % 41 % Lymphocytes % 46 % Monocytes % 6 % Eosinophils % 3 % Basophils % 1 % Neutrophils # 2.4 (1.3-7.7) k/uL Lymphocytes # 2.7 (1.0-4.8) k/uL Monocytes # 0.4 (0-1.0) k/uL Eosinophils # 0.2 (0-0.7) k/uL Basophils # 0.0 (0-0.2) k/uL Sodium 141 (137-145) mmol/L Potassium 4.3 (3.5-5.1) mmol/L Chloride 114 H (98-107) mmol/L Carbon Dioxide 23 (22-30) mmol/L Anion Gap 4 mmol/L BUN 25 H (9-20) mg/dL Creatinine 1.31 H (0.66-1.25) mg/dL Est GFR (CKD-EPI)AfAm 65 (>60 ml/min/1.73 sqM) Est GFR (CKD-EPI)NonAf 57 (>60 ml/min/1.73 sqM) Glucose 91 (74-99) mg/dL Calcium 8.7 (8.4-10.2) mg/dL Total Bilirubin 0.6 (0.2-1.3) mg/dL AST 27 (17-59) U/L ALT 19 (4-49) U/L Alkaline Phosphatase 94 (38-126) U/L Total Protein 6.5 (6.3-8.2) g/dL Albumin 3.6 (3.5-5.0) g/dL Lipase 21 L (23-300) U/L Urine Color Yellow Urine Appearance Clear (Clear) Urine pH 5.5 (5.0-8.0) Ur Specific [place] 1.028 (1.001-1.035) Urine Protein Trace H (Negative) Urine Glucose (UA) Negative (Negative) Urine Ketones Negative (Negative) Urine Blood Moderate H (Negative) Urine Nitrite Negative (Negative) Urine Bilirubin Negative (Negative) Urine Urobilinogen <2.0 (<2.0) mg/dL Ur Leukocyte Esterase Negative (Negative) Urine RBC 98 H (0-5) /hpf Urine WBC 2 (0-5) /hpf Ur Squamous Epith Cells 1 (0-4) /hpf Urine Mucus Rare H (None) /hpf Disposition Clinical Impression: Right ureteral calculus Disposition: HOME SELF-CARE Condition: Stable Instructions (If sedation given, give patient instructions): Kidney Stones (ED) Additional Instructions: Please utilize the urine strainer. Continue your medications for pain control. E nsure that you are hydrating well. Follow up with urology. Return to the emergency department for new or worsening symptoms. Is patient prescribed a controlled substance at d/c from ED?: No Referrals: Shaun Wang MD [Primary Care Provider] - 1-2 days Bobby Guillaume MD [STAFF PHYSICIAN] - 1-2 days
[2023-08-15 11:31] LABS: Appearance,Urine Clear (Clear); Bilirubin,Urine Negative (Negative); Blood,Urine Moderate (Negative); Color,Urine Yellow; Glucose,Urine (UA) Negative (Negative); Ketones,Urine Negative (Negative); Leukocyte Esterase,Urine Negative (Negative); Mucus,Urine Rare /hpf; Nitrite,Urine Negative (Negative); PH, Urine 5.5 (5.0-8.0); Protein,Urine Trace (Negative); RBC,Urine 98 /hpf (0-5); Specific Gravity,Urine 1.028 (1.001-1.035); Squamous Epithelial Cell,Urine 1 /hpf (0-4); Urobilinogen,Urine <2.0 mg/dL (<2.0); WBC,Urine 2 /hpf (0-5)
[2023-08-15 11:35] LABS: Basophils % (A) 1 %; Eosinophils # (A) 0.2 k/uL (0-0.7); Eosinophils % (A) 3 %; HCT 39.4 % (39.0-53.0); HGB 12.2 gm/dL (13.0-17.5); Lymphocytes # (A) 2.7 k/uL (1.0-4.8); Lymphocytes % (A) 46 %; MCH 27.4 pg (25.0-35.0); MCHC 30.8 g/dL (31.0-37.0); MCV 88.8 fL (80.0-100.0); Mean Platelet Volume 10.1; Monocytes # (A) 0.4 k/uL (0-1.0); Monocytes % (A) 6 %; Neutrophils # (A) 2.4 k/uL (1.3-7.7); Neutrophils % (A) 41 %; Platelet Count 133 k/uL (150-450); RBC 4.44 m/uL (4.30-5.90); RDW 15.9 % (11.5-15.5); WBC 5.8 k/uL (3.8-10.6)
[2023-08-15 11:43] LABS: ALT 19 U/L (4-49); AST 27 U/L (17-59); African American GFR (CKD) 65 (>60 ml/min/1.73 sqM); Albumin 3.6 g/dL (3.5-5.0); Alkaline Phosphatase 94 U/L (38-126); Anion Gap 4 mmol/L; Blood Urea Nitrogen 25 mg/dL (9-20); Calcium 8.7 mg/dL (8.4-10.2); Carbon Dioxide 23 mmol/L (22-30); Chloride 114 mmol/L (98-107); Glucose 91 mg/dL (74-99); Lipase 21 U/L (23-300); Non-African American GFR(CKD) 57 (>60 ml/min/1.73 sqM); Potassium 4.3 mmol/L (3.5-5.1); Sodium 141 mmol/L (137-145); Total Bilirubin 0.6 mg/dL (0.2-1.3); Total Protein 6.5 g/dL (6.3-8.2)
--- NOTE | 2023-08-15 11:54 | XR ---
EXAMINATION TYPE: XR KUB DATE OF EXAM: 08/15/2023 11:05 AM CLINICAL INDICATION:Male, 67 years old with history of abdominal pain; [facility] COMPARISON: 03/13/2022. TECHNIQUE: One radiographic view of the abdomen was obtained. FINDINGS: The bowel gas pattern is nonspecific without dilated loops of small or large bowel. . Fecal material and gas are demonstrated throughout the colon and rectum. There is no evidence for organomegaly or pneumoperitoneum. The osseous structures are intact. No ab normal calcifications are present. Surgical changes the hips appear intact. Surgical changes to the s pine hardware appears intact. IMPRESSION: 1. Nonspecific bowel gas pattern without radiographic evidence for acute process. 2. Post surgical changes of the spine and hips with hardware intact.
[2023-08-15] MEDS: SODIUM CHLORIDE 0.9% 1,000 ML IV ONE (12:00)
[2023-08-15 12:03] VITALS: RESP 18
[2023-08-15 12:52] VITALS: BP 160/84; PULSE 52
== END 2023-08-15 12:53 | disposition home or self-care (01) ==
LOC: EC 09:35
DX: N20.2 Calculus of kidney with calculus of ureter (principal)
CPT/HCPCS: 36415; 80053; 83690; 85025; 81001; 74018; 99284; 96374; 96376; 96361; J1170